=== PATIENT | female | born 1960 | race Caucasian/White ===

== ENCOUNTER → 2016-09-09 | Outpatient (CLI) | payer OTHER ==
--- NOTE | 2016-09-30 08:47 | MM ---
Reason for exam: screening (asymptomatic). Last mammogram was performed 12 years and 7 months ago. History: Benign excisional biopsy of the right breast. Took estrogen for 5 years. Physical Findings: A clinical breast exam by your physician is recommended on an annual basis and results should be correlated with mammographic findings. MG Screening Mammo w CAD Bilateral CC and MLO view(s) were taken. Prior study comparison: June 04, 2015, mammogram, performed at [facility]. September 26, 2013, mammogram, performed at [facility]. September 16, 2010, mammogram, performed at [facility]. The breast tissue is heterogeneously dense. This may lower the sensitivity of mammography. Finding: There are typically benign round, regional calcifications in the upper outer quadrant of the right breast. There is no discrete abnormality. ASSESSMENT: Benign, BI-RAD 2 RECOMMENDATION: Routine screening mammogram of both breasts in 1 year.
== END | disposition home or self-care (01) ==
LOC: RADMAMWWP 16:23
PROVIDERS: ATTEND General Practice
DX: Z12.31 Encounter for screening mammogram for malignant neoplasm of breast (principal)

== ENCOUNTER → 2018-03-14 | Outpatient (CLI) | payer OTHER ==
--- NOTE | 2018-03-16 09:55 | MM ---
Reason for exam: screening (asymptomatic). Last mammogram was performed 1 year and 6 months ago. History: Benign excisional biopsy of the right breast. Took estrogen for 5 years. Physical Findings: A clinical breast exam by your physician is recommended on an annual basis and results should be correlated with mammographic findings. MG Screening Mammo w CAD Bilateral CC and MLO view(s) were taken. Prior study comparison: September 09, 2016, bilateral MG screening mammo w CAD. June 04, 2015, mammogram, performed at [facility]. No significant changes when compared with prior studies. ASSESSMENT: Benign, BI-RAD 2 RECOMMENDATION: Routine screening mammogram of both breasts in 1 year.
== END | disposition home or self-care (01) ==
LOC: RADMAMWWP 13:37
PROVIDERS: ATTEND General Practice
DX: Z12.31 Encounter for screening mammogram for malignant neoplasm of breast (principal)
CPT/HCPCS: 77067

== ENCOUNTER 2018-08-10 14:30 | Inpatient (IN) | payer OTHER ==
[2018-08-10] MEDS ORDERED: SODIUM CHLORIDE 0.9% 1,000 ML IV STA ×2 (14:50)
[2018-08-10 15:23] LABS: Basophils % (A) 1 %; Eosinophils # (A) 0.3 k/uL (0-0.7); Eosinophils % (A) 3 %; HCT 40.1 % (34.0-46.0); HGB 13.1 gm/dL (11.4-16.0); Lymphocytes # (A) 2.4 k/uL (1.0-4.8); Lymphocytes % (A) 27 %; MCH 26.4 pg (25.0-35.0); MCHC 32.6 g/dL (31.0-37.0); MCV 81.1 fL (80.0-100.0); Mean Platelet Volume 6.4; Monocytes # (A) 0.2 k/uL (0-1.0); Monocytes % (A) 3 %; Neutrophils # (A) 5.8 k/uL (1.3-7.7); Neutrophils % (A) 65 %; Platelet Count 287 k/uL (150-450); RBC 4.94 m/uL (3.80-5.40); WBC 8.9 k/uL (3.8-10.6)
[2018-08-10 15:33] LABS: INR 0.9 (<1.2); Prothrombin Time 9.5 sec (9.0-12.0)
[2018-08-10 15:34] LABS: Partial Thromboplastin Time 23.4 sec (22.0-30.0)
[2018-08-10 15:35] LABS: ALT 32 U/L (9-52); AST 29 U/L (14-36); Albumin 4.2 g/dL (3.5-5.0); Alkaline Phosphatase 104 U/L (38-126); Anion Gap 11 mmol/L; Blood Urea Nitrogen 16 mg/dL (7-17); Calcium 9.7 mg/dL (8.4-10.2); Carbon Dioxide 27 mmol/L (22-30); Chloride 100 mmol/L (98-107); Glucose 177 mg/dL (74-99); Magnesium 1.4 mg/dL (1.6-2.3); Sodium 138 mmol/L (137-145); Total Bilirubin 0.4 mg/dL (0.2-1.3); Total Protein 7.2 g/dL (6.3-8.2)
--- NOTE | 2018-08-10 15:55 | XR ---
EXAMINATION TYPE: XR chest 2V DATE OF EXAM: 08/10/2018 COMPARISON: 03/17/2016 HISTORY: Palpitations, chest tightness, dizziness TECHNIQUE: Frontal and lateral views of the chest are obtained. FINDINGS: There is no focal air space opacity, pleural effusion, or pneumothorax seen. There is pulm onary hyperinflation and flattening of the diaphragms on the lateral view compatible with underlying COPD. Chronic interstitial prominence is unchanged from the prior. The cardiac silhouette size is mil dly enlarged. The osseous structures are intact. Right humeral surgical anchors are seen from prior rotator cuff repair. IMPRESSION: Chronic interstitial prominence and radiographic sequela of COPD. No acute cardiopulmonar y process.
--- NOTE | 2018-08-10 16:26 | ED ---
General Adult HPI - General Chief complaint: Allergic Reaction Stated complaint: Med reaction/ chest pain Time Seen by Provider: 08/10/18 14:50 Source: patient, RN notes reviewed, old records reviewed Mode of arrival: wheelchair Limitations: no limitations - History of Present Illness Initial comments: Patient is a 57-year-old female presents today with complaints of "ALLERGIC reaction" to Trilisate. Patient states she started this new medication last week. Patient is a diabetic Patient. Has history of hypertension and hyperlipidemia. Today she had her increased dose since that time she's been having palpitations. She states that she's been having some chest tightness and difficulty breathing. Patient states that she has had no recent fevers or chills or worsening cough. Patient states that it is difficult for her to lay completely back to previously. She does her sleep apnea machine. - Related Data Home Medications Medication Instructions Recorded Confirmed Diltiazem Cd [Cardizem CD] 240 mg PO DAILY 06/09/15 08/10/18 Insulin Aspart [NovoLOG Flexpen] 20 unit SQ AC-TID 06/09/15 08/10/18 Loratadine [Claritin] 10 mg PO DAILY 06/09/15 08/10/18 metFORMIN HCL [Glucophage] 1,000 mg PO BID 06/09/15 08/10/18 rOPINIRole HCL [Requip Xl] 4 mg PO HS 06/09/15 08/10/18 Betamethasone Dipropionate 1 applic TOPICAL BID 03/17/16 08/10/18 [Diprolene AF 0.05% Cream] Budesonide-Formot 160-4.5 Mcg 2 puff INHALATION RT-BID 03/17/16 08/10/18 [Symbicort 160-4.5 Mcg Inhaler] Albuterol Sulfate [Proair Hfa] 1 - 2 puff INHALATION RT-Q6H PRN 08/10/18 08/10/18 Dulaglutide [Trulicity] 0.75 mg SQ MO 08/10/18 08/10/18 Insulin Aspart [NovoLOG Flexpen] See Protocol SQ AC-TID 08/10/18 08/10/18 Insulin Glargine [Lantus] 26 unit SQ HS 08/10/18 08/10/18 Levothyroxine Sodium [Synthroid] 25 mcg PO DAILY 08/10/18 08/10/18 Pravastatin Sodium [Pravachol] 80 mg PO HS 08/10/18 08/10/18 Allergies Allergy/AdvReac Type Severity Reaction Status Date / Time ammonia Allergy Unknown Verified 08/10/18 14:56 barium sulfate Allergy Unknown Verified 08/10/18 14:56 dulaglutide [From Trulicity] Allergy Dyspnea Verified 08/10/18 14:56 exenatide [From Byetta] Allergy Unknown Verified 08/10/18 14:56 feathers Allergy Unknown Verified 08/10/18 14:56 fexofenadine HCl Allergy Unknown Verified 08/10/18 14:56 [From Elena] hydrochlorothiazide Allergy Unknown Verified 08/10/18 14:56 influenza virus vaccine, Allergy Unknown Verified 08/10/18 14:56 specific isosorbide [From Imdur] Allergy Unknown Verified 08/10/18 14:56 meperidine HCl [From Demerol] Allergy Anaphylaxis Verified 08/10/18 14:56 nifedipine [From Procardia] Allergy Unknown Verified 08/10/18 14:56 nitroglycerin Allergy Unknown Verified 08/10/18 14:56 ondansetron Allergy Unknown Verified 08/10/18 14:56 [From Zofran (as hydrochloride)] paroxetine [From Paxil] Allergy Unknown Verified 08/10/18 14:56 paroxetine HCl [From Paxil] Allergy Unknown Verified 08/10/18 14:56 sertraline HCl [From Zoloft] Allergy Unknown Verified 08/10/18 14:56 simvastatin [From Zocor] Allergy Unknown Verified 08/10/18 14:56 Wobmumq-Bpg-Iff Reductase Allergy Unknown Verified 08/10/18 14:56 Inhibitor venom-honey bee Allergy Anaphylaxis Verified 08/10/18 14:56 [bee venom (honey bee)] zolpidem [From Ambien] Allergy Unknown Verified 08/10/18 14:56 zolpidem tartrate Allergy Unknown Verified 08/10/18 14:56 [From Ambien] lactose AdvReac Nausea & Verified 08/10/18 14:56 Vomiting & Diarrhea hay Allergy Unknown Uncoded 08/10/18 14:41 lysol Allergy Unknown Uncoded 08/10/18 14:41 Review of Systems ROS Statement: Those systems with pertinent positive or pertinent negative responses have been documented in the HPI. ROS Other: All systems not noted in ROS Statement are negative. Past Medical History Past Medical History: Asthma, COPD, CVA/TIA, Diabetes Mellitus, GERD/Reflux, Hearing Disorder / Deafness, Hyperlipidemia, Hypertension, Seizure Disorder, Sleep Apnea/CPAP/BIPAP, Thyroid Disorder Additional Past Medical History / Comment(s): additional hx: right bundle branch block,barretts esophagus, migraines, deanna hearing aids, lung nodules, fatty liver, pulmonary hypertension, heart murmur,obesity, IBS, RLS, arthritis, ADHD, DJD, anemia, lactose intolerance History of Any Multi-Drug Resistant Organisms: None Reported Past Surgical History: Cholecystectomy, Hysterectomy Additional Past Surgical History / Comment(s): breast biopsy,esophageal surgery - 2002 Past Anesthesia/Blood Transfusion Reactions: No Reported Reaction Past Psychological History: Anxiety, Depression Smoking Status: Never smoker Past Alcohol Use History: None Reported Past Drug Use History: None Reported - Past Family History Mother History Unknown: Yes Family Medical History: Congestive Heart Failure (CHF), Myocardial Infarction ([place]) Additional Family Medical History / Comment(s): 77 Father History Unknown: Yes Family Medical History: COPD, Myocardial Infarction ([place]) Additional Family Medical History / Comment(s): at 56 Sister(s) History Unknown: Yes Family Medical History: Myocardial Infarction ([place]) Additional Family Medical History / Comment(s): at 56 General Exam - General Exam Comments Initial Comments: 57-year-old female. Alert and oriented. No distress. Limitations: no limitations General appearance: alert, in no apparent distress Head exam: Present: atraumatic, normocephalic, normal inspection Eye exam: Present: normal appearance, PERRL, EOMI. Absent: scleral icterus, conjunctival injection, periorbital swelling ENT exam: Present: normal exam, mucous membranes moist Neck exam: Present: normal inspection. Absent: tenderness, meningismus, lymphadenopathy Respiratory exam: Present: normal lung sounds bilaterally. Absent: respiratory distress, wheezes, rales, rhonchi, stridor Cardiovascular Exam: Present: regular rate, normal rhythm, normal heart sounds. Absent: systolic murmur, diastolic murmur, rubs, gallop, clicks GI/Abdominal exam: Present: soft, normal bowel sounds. Absent: distended, tenderness, guarding, rebound, rigid Extremities exam: Present: normal inspection, full ROM, normal capillary refill. Absent: tenderness, pedal edema, joint swelling, calf tenderness Back exam: Present: normal inspection Neurological exam: Present: alert, oriented X3, CN II-XII intact Psychiatric exam: Present: normal affect, normal mood Skin exam: Present: warm, dry, intact, normal color. Absent: rash Course Vital Signs 08/10/18 08/10/18 08/10/18 14:37 15:18 15:52 Temperature 97.3 F L Pulse Rate 82 Respiratory 20 20 Rate Blood Pressure 154/86 O2 Sat by Pulse 97 95 Oximetry 08/10/18 08/10/18 08/10/18 16:00 16:10 16:20 Temperature Pulse Rate 78 75 Respiratory 20 20 Rate Blood Pressure 163/91 163/90 163/90 O2 Sat by Pulse 96 91 L Oximetry 08/10/18 08/10/18 08/10/18 16:30 16:40 16:50 Temperature Pulse Rate 78 82 77 Respiratory 20 20 26 H Rate Blood Pressure 163/90 166/89 166/89 O2 Sat by Pulse 95 92 L 93 L Oximetry 08/10/18 08/10/18 17:00 17:10 Temperature Pulse Rate 76 77 Respiratory 14 Rate Blood Pressure 166/89 167/97 O2 Sat by Pulse 94 L 95 Oximetry EKG Findings - EKG Comments: EKG Findings:: EKG shows normal sinus rhythm right bundle branch block. Abnormal EKG. Ventricular rate 81 bpm. Pulse 168 ms. Restriction 126 ms. QT QTc is 404/469 ms. No evidence of ST elevation or T-wave inversion. Medical Decision Making - Medical Decision Making 57-year-old female presents or extremity with chest tightness palpitations. Patient was instructed to return to the [facility]. She has a history of diabetes hypertension hyperlipidemia. Patient EKG shows right bundle branch block. Troponin is negative at this time. She states she does not have a stock letterer and has not had a stress test. She states complaints of heaviness on her chest. At this time elected the Patient for repeat troponins. Discussed case with Dr. Carrillo and who agrees to admission. - Lab Data Result diagrams: 08/10/18 15:15 08/10/18 15:15 Lab Results 08/10/18 08/10/18 08/10/18 Range/Units 15:15 15:15 15:15 WBC 8.9 (3.8-10.6) k/uL RBC 4.94 (3.80-5.40) m/uL Hgb 13.1 (11.4-16.0) gm/dL Hct 40.1 (34.0-46.0) % MCV 81.1 (80.0-100.0) fL MCH 26.4 (25.0-35.0) pg MCHC 32.6 (31.0-37.0) g/dL RDW 15.0 (11.5-15.5) % Plt Count 287 (150-450) k/uL Neutrophils % 65 % Lymphocytes % 27 % Monocytes % 3 % Eosinophils % 3 % Basophils % 1 % Neutrophils # 5.8 (1.3-7.7) k/uL Lymphocytes # 2.4 (1.0-4.8) k/uL Monocytes # 0.2 (0-1.0) k/uL Eosinophils # 0.3 (0-0.7) k/uL Basophils # 0.0 (0-0.2) k/uL PT 9.5 (9.0-12.0) sec INR 0.9 (<1.2) APTT 23.4 (22.0-30.0) sec Sodium 138 (137-145) mmol/L Potassium 4.0 (3.5-5.1) mmol/L Chloride 100 (98-107) mmol/L Carbon Dioxide 27 (22-30) mmol/L Anion Gap 11 mmol/L BUN 16 (7-17) mg/dL Creatinine 0.51 L (0.52-1.04) mg/dL Est GFR (CKD-EPI)AfAm >90 (>60 ml/min/1.73 sqM) Est GFR (CKD-EPI)NonAf >90 (>60 ml/min/1.73 sqM) Glucose 177 H (74-99) mg/dL Calcium 9.7 (8.4-10.2) mg/dL Magnesium 1.4 L (1.6-2.3) mg/dL Total Bilirubin 0.4 (0.2-1.3) mg/dL AST 29 (14-36) U/L ALT 32 (9-52) U/L Alkaline Phosphatase 104 (38-126) U/L Troponin I (0.000-0.034) ng/mL NT-Pro-B Natriuret Pep pg/mL Total Protein 7.2 (6.3-8.2) g/dL Albumin 4.2 (3.5-5.0) g/dL 08/10/18 08/10/18 Range/Units 15:15 15:15 WBC (3.8-10.6) k/uL RBC (3.80-5.40) m/uL Hgb (11.4-16.0) gm/dL Hct (34.0-46.0) % MCV (80.0-100.0) fL MCH (25.0-35.0) pg MCHC (31.0-37.0) g/dL RDW (11.5-15.5) % Plt Count (150-450) k/uL Neutrophils % % Lymphocytes % % Monocytes % % Eosinophils % % Basophils % % Neutrophils # (1.3-7.7) k/uL Lymphocytes # (1.0-4.8) k/uL Monocytes # (0-1.0) k/uL Eosinophils # (0-0.7) k/uL Basophils # (0-0.2) k/uL PT (9.0-12.0) sec INR (<1.2) APTT (22.0-30.0) sec Sodium (137-145) mmol/L Potassium (3.5-5.1) mmol/L Chloride (98-107) mmol/L Carbon Dioxide (22-30) mmol/L Anion Gap mmol/L BUN (7-17) mg/dL Creatinine (0.52-1.04) mg/dL Est GFR (CKD-EPI)AfAm (>60 ml/min/1.73 sqM) Est GFR (CKD-EPI)NonAf (>60 ml/min/1.73 sqM) Glucose (74-99) mg/dL Calcium (8.4-10.2) mg/dL Magnesium (1.6-2.3) mg/dL Total Bilirubin (0.2-1.3) mg/dL AST (14-36) U/L ALT (9-52) U/L Alkaline Phosphatase (38-126) U/L Troponin I <0.012 (0.000-0.034) ng/mL NT-Pro-B Natriuret Pep 98 pg/mL Total Protein (6.3-8.2) g/dL Albumin (3.5-5.0) g/dL - Radiology Data Radiology results: report reviewed Chronic interstitial prominence and radiographic some "soupy. No acute cardio pulmonary process. Disposition Clinical Impression: Unstable angina Disposition: ADMITTED IP TO THIS HOSP Condition: Stable Is patient prescribed a controlled substance at d/c from ED?: No Referrals: León Martin MD [Primary Care Provider] - 1-2 days Time of Disposition: 17:50
[2018-08-10] MEDS ORDERED: ONDANSETRON 4 MG/2 ML VIAL IVP PRN (17:51)
[2018-08-10] MEDS ORDERED: NALOXONE 0.4 MG/ML 1 ML VIAL IV PRN (17:51)
[2018-08-10] MEDS ORDERED: NITROGLYCERIN SL TABS 0.4 MG TAB SUBLINGUAL PRN (19:32)
[2018-08-10] MEDS ORDERED: ALBUTEROL NEBULIZED 2.5 MG/3 ML INHALATION PRN (22:16)
[2018-08-10 22:55] LABS: Glucose,Whole Blood 233 mg/dL (75-99)
[2018-08-10] MEDS: INSULIN ASPART (NovoLOG) 100 UNIT/ML VIAL SQ SCH (23:33)
[2018-08-10] MEDS: INSULIN DETEMIR (LEVEMIR) 100 UNIT/ML SYR SQ SCH (23:33)
[2018-08-11 04:02] LABS: Cholesterol 239 mg/dL (<200); HDL Cholesterol 49 mg/dL (40-60); LDL Cholesterol,Calculated 114 mg/dL (0-99); Triglycerides 379 mg/dL (<150)
[2018-08-11] MEDS: LEVOTHYROXINE 25 MCG TAB PO SCH (05:46)
[2018-08-11 06:53] LABS: Glucose,Whole Blood 188 mg/dL (75-99)
[2018-08-11] MEDS: SYMBICORT 160-4.5 MCG INHALER INHALATION SCH ×2 (07:41→20:24)
[2018-08-11] MEDS: ASPIRIN 325 MG TAB PO SCH ×2 (08:30→10:02)
--- NOTE | 2018-08-11 09:43 | P.HPIM ---
History of Present Illness Chief Complaint: Chest pain This very pleasant 57-year-old female with a past medical history significant for diabetes, hypertension, hyperlipidemia, COPD, comes in with above-mentioned complaint. The patient says that she was recently started on truicity for her diabetes. She took is supposed to take it once a week and she took her second dose about 3 days ago on Wednesday and by evening she started noticing that she's been feeling more chest tightness, having more palpitations and pain in her right arm. She was also feeling lightheaded and was having difficulty breathing. She says that this worried her as she she said that she has seen Dr. Hernandez in the past and she was told that she needed a heart cath but did not get it done as her care was through [place]. She otherwise does not complain of any increased cough, no nausea vomiting, no diarrhea constipation, noting numbness on his extremities, no itch or rash. ER course-patient's vitals were stable. Labwork was done which shows WBC 8.9 hemoglobin 13.1 platelets 287 sodium 1:30 potassium 4.0 B1 16 creatinine 0.51 LFTs were normal. Chest X shows chronic interstitial prominence no acute process. Patient's troponins were negative. EKG was done which showed right bundle watch block pattern. Patient was admitted with a cardiology consult. Review of Systems All systems: negative Past Medical History Past Medical History: Asthma, COPD, CVA/TIA, Diabetes Mellitus, GERD/Reflux, Hearing Disorder / Deafness, Hyperlipidemia, Hypertension, Seizure Disorder, Sleep Apnea/CPAP/BIPAP, Thyroid Disorder Additional Past Medical History / Comment(s): additional hx: right bundle branch block,barretts esophagus, migraines, deanna hearing aids, lung nodules, fatty liver, pulmonary hypertension, heart murmur,obesity, IBS, RLS, arthritis, ADHD, DJD, anemia, lactose intolerance History of Any Multi-Drug Resistant Organisms: None Reported Past Surgical History: Cholecystectomy, Hysterectomy Additional Past Surgical History / Comment(s): breast biopsy,esophageal surgery - 2002 Past Anesthesia/Blood Transfusion Reactions: No Reported Reaction Past Psychological History: Anxiety, Depression Smoking Status: Never smoker Past Alcohol Use History: None Reported Past Drug Use History: None Reported - Past Family History Mother History Unknown: Yes Family Medical History: Congestive Heart Failure (CHF), Myocardial Infarction ([place]) Additional Family Medical History / Comment(s): 77 Father History Unknown: Yes Family Medical History: COPD, Myocardial Infarction ([place]) Additional Family Medical History / Comment(s): at 56 Sister(s) History Unknown: Yes Family Medical History: Myocardial Infarction ([place]) Additional Family Medical History / Comment(s): at 56 Medications and Allergies Home Medications Medication Instructions Recorded Confirmed Type Diltiazem Cd [Cardizem CD] 240 mg PO HS 06/09/15 08/10/18 History Insulin Aspart [NovoLOG Flexpen] 20 unit SQ AC-TID 06/09/15 08/10/18 History Loratadine [Claritin] 10 mg PO HS 06/09/15 08/10/18 History metFORMIN HCL [Glucophage] 1,000 mg PO BID 06/09/15 08/10/18 History rOPINIRole HCL [Requip Xl] 4 mg PO HS 06/09/15 08/10/18 History Budesonide-Formot 160-4.5 Mcg 2 puff INHALATION RT-BID 03/17/16 08/10/18 History [Symbicort 160-4.5 Mcg Inhaler] Albuterol Sulfate [Proair Hfa] 1 - 2 puff INHALATION RT-Q6H PRN 08/10/18 08/10/18 History Dulaglutide [Trulicity] 0.75 mg SQ MO 08/10/18 08/10/18 History Insulin Aspart [NovoLOG Flexpen] See Protocol SQ AC-TID 08/10/18 08/10/18 History Insulin Glargine [Lantus] 26 unit SQ HS 08/10/18 08/10/18 History Levothyroxine Sodium [Synthroid] 25 mcg PO DAILY 08/10/18 08/10/18 History Pravastatin Sodium [Pravachol] 80 mg PO HS 08/10/18 08/10/18 History Allergies Allergy/AdvReac Type Severity Reaction Status Date / Time ammonia Allergy Unknown Verified 08/10/18 21:28 barium sulfate Allergy Unknown Verified 08/10/18 21:28 dulaglutide [From Trulicity] Allergy Dyspnea Verified 08/10/18 21:28 exenatide [From Byetta] Allergy Unknown Verified 08/10/18 21:28 feathers Allergy Unknown Verified 08/10/18 21:28 fexofenadine HCl Allergy Unknown Verified 08/10/18 21:28 [From Elena] hydrochlorothiazide Allergy Unknown Verified 08/10/18 21:28 influenza virus vaccine, Allergy Unknown Verified 08/10/18 21:28 specific isosorbide [From Imdur] Allergy Unknown Verified 08/10/18 21:28 meperidine HCl [From Demerol] Allergy Anaphylaxis Verified 08/10/18 21:28 nifedipine [From Procardia] Allergy Unknown Verified 08/10/18 21:28 nitroglycerin Allergy Unknown Verified 08/10/18 21:28 ondansetron Allergy Unknown Verified 08/10/18 21:28 [From Zofran (as hydrochloride)] paroxetine [From Paxil] Allergy Unknown Verified 08/10/18 21:28 paroxetine HCl [From Paxil] Allergy Unknown Verified 08/10/18 21:28 sertraline HCl [From Zoloft] Allergy Unknown Verified 08/10/18 21:28 simvastatin [From Zocor] Allergy Unknown Verified 08/10/18 21:28 Uaampka-Oqv-Gur Reductase Allergy Unknown Verified 08/10/18 21:28 Inhibitor venom-honey bee Allergy Anaphylaxis Verified 08/10/18 21:28 [bee venom (honey bee)] zolpidem [From Ambien] Allergy Unknown Verified 08/10/18 21:28 zolpidem tartrate Allergy Unknown Verified 08/10/18 21:28 [From Ambien] lactose AdvReac Nausea & Verified 08/10/18 21:28 Vomiting & Diarrhea hay Allergy Unknown Uncoded 08/10/18 21:28 lysol Allergy Unknown Uncoded 08/10/18 21:28 Physical Exam Vitals: Vital Signs Temp Pulse Pulse Resp BP BP Pulse Ox 08/11/18 08:00 73 18 08/11/18 07:15 97.7 F 73 18 118/71 98 08/11/18 04:00 97.8 F 73 18 123/77 98 08/11/18 00:00 97.4 F L 71 18 146/85 98 08/10/18 22:29 97.6 F 79 18 166/99 98 08/10/18 21:18 97.4 F L 77 18 166/86 98 08/10/18 20:00 18 08/10/18 19:30 86 08/10/18 19:00 80 20 08/10/18 18:30 20 08/10/18 18:00 82 18 97 08/10/18 17:30 167/97 84 L 08/10/18 17:10 77 167/97 95 08/10/18 17:00 76 14 166/89 94 L 08/10/18 16:50 77 26 H 166/89 93 L 08/10/18 16:40 82 20 166/89 92 L 08/10/18 16:30 78 20 163/90 95 08/10/18 16:20 75 20 163/90 91 L 08/10/18 16:10 163/90 08/10/18 16:00 78 20 163/91 96 08/10/18 15:52 95 08/10/18 15:18 20 08/10/18 14:37 97.3 F L 82 20 154/86 97 Intake and Output 08/10/18 08/11/18 08/11/18 22:59 06:59 14:59 Other: Voiding Method Toilet Toilet Toilet # Voids 1 On exam, alert and oriented x3. HEENT: Conjunctivae normal. eyes normal. NECK: No JVD. No thyroid enlargement. No LNs CARDIOVASCULAR: S1, S2 muffled. No murmur RESPIRATION: Breath sounds diminished in the bases. No rhonchi or crackles. No bronchial breathing. ABDOMEN: Soft, nontender . No guarding. no masses palpable. No ascites, No hepatosplenomegaly.Bowel sounds heard. LEGS: No edema. no swelling NERVOUS SYSTEM: Cranial N 2-12 grossly normal. Moves all 4 limbs. No focal deficits. No sensory deficit. No signs of cerebellar dysfucntion. Skin: no ulcer no rash Joints: No active swelling. No inflammation. Lymphatic system. No LN neck axilla or groin. Results CBC & Chem 7: 08/10/18 15:15 08/10/18 15:15 Labs: Abnormal Lab Results - Last 24 Hours (Table) 08/10/18 08/10/18 08/11/18 Range/Units 15:15 22:54 03:18 Creatinine 0.51 L (0.52-1.04) mg/dL Glucose 177 H (74-99) mg/dL POC Glucose (mg/dL) 233 H (75-99) mg/dL Magnesium 1.4 L (1.6-2.3) mg/dL Triglycerides 379 H (<150) mg/dL Cholesterol 239 H (<200) mg/dL LDL Cholesterol, Calc 114 H (0-99) mg/dL 08/11/18 Range/Units 06:51 Creatinine (0.52-1.04) mg/dL Glucose (74-99) mg/dL POC Glucose (mg/dL) 188 H (75-99) mg/dL Magnesium (1.6-2.3) mg/dL Triglycerides (<150) mg/dL Cholesterol (<200) mg/dL LDL Cholesterol, Calc (0-99) mg/dL Thrombosis Risk Factor Assmnt - Choose All That Apply Any of the Below Risk Factors Present?: Yes Each Factor Represents 1 point: Abnormal pulmonary function (COPD), Age 41-60 years, Hx of IBD, Obesity (BMI >25), Swollen legs (current) Other Risk Factors: No Other congenital or acquired thrombophilia - If yes, enter type in comment: No Thrombosis Risk Factor Assessment Total Risk Factor Score: 5 Thrombosis Risk Factor Assessment Level: High Risk Assessment and Plan Assessment: - Chest pain need to rule out cardiac cause - History of diabetes recently started on new medications - Hypertension - Hyperlipidemia - Obesity - History of CVA - History of seizures - History of GERD - History of sleep apnea - History of hypothyroidism Plan - Patient is admitted to observation on telemetry - Cardiology consulted - We will wait for cardiology's expert recommendations - Cardiac workup in process - Continue home medications - Hold trulicity on discharge and follow-up with primary care - DVT and GI prophylaxis - We'll order for lab work in the morning - Patient is an observation - Patient is full code Time with Patient: Greater than 30
[2018-08-11] MEDS ORDERED: ALPRAZolam 0.5 MG TAB PO PRN (09:44)
[2018-08-11] MEDS ORDERED: SODIUM CHLORIDE 0.9% 1,000 ML in EMPTY BAG 1 BAG IV ONE (09:44)
[2018-08-11] MEDS ORDERED: ALPRAZolam 0.25 MG TAB PO PRN (09:44)
[2018-08-11] MEDS: INSULIN ASPART (NovoLOG) 100 UNIT/ML VIAL SQ SCH ×4 (10:24→21:15)
--- NOTE | 2018-08-11 10:47 | ECHOF ---
Referral Reason: MEASUREMENTS -------- HEIGHT: 132.1 cm WEIGHT: 108.0 kg BP: IVSd: 1.1 cm (0.6 - 1.1) LVIDd: 4.7 cm (3.9 - 5.3) LVPWd: 1.0 cm (0.6 - 1.1) IVSs: 1.8 cm LVIDs: 2.4 cm LVPWs: 1.8 cm Ao Diam: 3.4 cm (2.0 - 3.7) AV Cusp: 2.1 cm (1.5 - 2.6) LA Diam: 3.3 cm (2.7 - 3.8) MV EXCURSION: 15.271 mm (> 18.000) MV EF SLOPE: 87 mm/s (70 - 150) EPSS: 1.0 cm MV E Mj: 1.05 m/s MV DecT: 208 ms MV A Mj: 0.82 m/s MV E/A Ratio: 1.29 AR PHT: 146 ms RAP: 5.00 mmHg RVSP: 9.71 mmHg FINDINGS -------- Sinus rhythm. This was a technically difficult study with suboptimal views. The left ventricular size is normal. There is mild concentric left ventricular hypertrophy. Overa ll left ventricular systolic function is normal with, an EF between 55 - 60 %. The right ventricle is normal in size. The left atrial size is normal. The right atrial size is normal. Lumason used The aortic valve is trileaflet and appears structurally normal. There is trace mitral regurgitation. Trace tricuspid regurgitation present. The right ventricular systolic pressure, as measured by Dopp ler, is 9.71mmHg. There is no pulmonic regurgitation present. The aortic root size is normal. IVC Not well visulized. There is no pericardial effusion. CONCLUSIONS -------- 1. Sinus rhythm. 2. This was a technically difficult study with suboptimal views. 3. The left ventricular size is normal. 4. There is mild concentric left ventricular hypertrophy. 5. Overall left ventricular systolic function is normal with, an EF between 55 - 60 %. 6. The right ventricle is normal in size. 7. The left atrial size is normal. 8. The right atrial size is normal. 9. Lumason used 10. The aortic valve is trileaflet and appears structurally normal. 11. There is trace mitral regurgitation. 12. Trace tricuspid regurgitation present. 13. The right ventricular systolic pressure, as measured by Doppler, is 9.71mmHg. 14. There is no pulmonic regurgitation present. 15. The aortic root size is normal. 16. IVC Not well visulized. 17. There is no pericardial effusion. GOLF BALL WINDER: Laurence Garduno RDCS
[2018-08-11] MEDS ORDERED: IV FLUID CONTINUATION 1,000 ML IV ONE (11:00)
[2018-08-11] MEDS ORDERED: Magnesium Replacement Protocol 1 EACH MISC MISCELLANE PRN (11:12)
--- NOTE | 2018-08-11 11:15 | P.CRDCN ---
History of Present Illness History of present illness: This is a pleasant 57-year-old female past medical history significant for diabetes mellitus, hypertension, dyslipidemia, COPD, gastroesophageal reflux disease, obstructive sleep apnea, Wade's esophagus, hypothyroidism and morbid obesity. We have been asked to see the patient in consultation secondary to chest discomfort. In 2017 she underwent a Lexiscan stress test which revealed the possibility of a small area of reversibility. Secondary to that she was referred to see Dr. Hernandez in the office of which he did a dobutamine stress echocardiogram which was inconclusive secondary to inability to achieve target heart rate. At that time he recommended she undergo cardiac catheterization for further evaluation. However this was never completed due to the patient states insurance issues with [facility]. Over the previous week and a half she has been experiencing symptoms of chest discomfort described as a pressure sensation in the midsternal region with radiation to the right shoulder and down the right arm associated with shortness of breath, nausea and feeling lightheaded. She did recently starting new medication for her diabetes, trulicity, which she feels may be the culpirt of her symptoms. She is seen and examined resting comfortably sitting in the bed in no acute distress. She denies active symptoms of chest discomfort currently. EKG reveals right bundle branch block. Chest x-ray reveals evidence of COPD. Laboratory data reviewed, WBC 8.9, hemoglobin 13.1, platelets 287, sodium 138, potassium 4.0, creatinine 0.51, magnesium on admission 1.4, cardiac enzymes negative 3, LDL 114, HDL 49, NT proBNP 98. Current cardiac medications include pravastatin 80 mg daily and diltiazem 240 mg daily. At the time of my exam: CONSTITUTIONAL: Denies fever. Denies chills. EYES: Denies blurred vision. Denies vision changes. Denies eye pain. EARS, NOSE, MOUTH & THROAT: Denies headache. Denies sore throat. Denies ear pain. CARDIOVASCULAR: Denies chest pain. Denies shortness of breath. Denies orthopnea. Denies PND. Denies palpitations. RESPIRATORY: Denies cough. GASTROINTESTINAL: Denies abdominal pain. Denies diarrhea. Denies constipation. Denies nausea. Denies vomiting. MUSCULOSKELETAL: Denies myalgias. INTEGUMENTARY: Denies pruitis. Denies rash. NEUROLOGIC: Denies numbness. Denies tingling. Denies weakness. PSYCHIATRIC: Denies anxiety. Denies depression. ENDOCRINE: Denies fatigue. Denies weight change. Denies polydipsia. Denies polyurina. GENITOURINARY: Denies burning, hematuria or urgency with micturation. HEMATOLOGIC: Denies history of anemia. Denies bleeding. Blood pressure 118/71 heart rate 73 afebrile maintaining oxygen saturation on room air GENERAL: This is a 57-year-old female in no apparent distress at the time of my examination. Morbidly obese. HEENT: Head is atraumatic, normocephalic. Pupils are equal, round. Sclerae anicteric. Conjunctivae are clear. Mucous membranes of the mouth are moist. Neck is supple. There is no jugular venous distention. No carotid bruit is heard. LUNGS: Clear to auscultation no wheezes, rales or rhonchi. No chest wall tenderness is noted on palpation or with deep breathing. HEART: Regular rate and rhythm without murmurs, rubs or gallops. S1 and S2 heard. ABDOMEN: Soft, nontender. Bowel sounds are heard. No organomegaly noted. EXTREMITIES: No evidence of peripheral edema and no calf tenderness noted. VASCULAR: Radial and dorsalis pedis pulses palpated, no evidence of clubbing. NEUROLOGIC: Patient is awake, alert and oriented x3. ASSESSMENT Chest discomfort suggestive of unstable angina in a patient with significant risk factors and abnormal stress test in the past Hypomagnesemia Hypertension Dyslipidemia COPD Wade's esophagus Obstructive sleep apnea Morbid obesity, BMI 49 PLAN Patient's symptoms are highly suggestive of unstable angina in a patient with multiple risk factors as well as an abnormal stress test in 2017 for which she did not undergo cardiac catheterization. We recommend proceeding with cardiac catheterization at this time to further assess the coronary arteries. I have discussed the risks, benefits and alternative therapies for the above-mentioned procedure and for both sedation/analgesia as well as necessary blood product administration, if indicated, as they pertain to this patient. The patient has indicated understanding and acceptance of the risks and procedures discussed. Questions have been answered appropriately and she is agreeable to move forward with the above stated procedure. She has requested to speak with chelsea kaur regarding insurance coverage. We will ask them to see her prior to her procedure. Obtain 2-D echocardiogram and Doppler study to assess cardiac structure and function. Replace magnesium per protocol. Further recommendations to follow based upon clinical course. Thank you kindly for this consultation. Nurse Practitioner note has been reviewed, I agree with a documented findings and plan of care. Patient was seen and examined. Past Medical History Past Medical History: Asthma, COPD, CVA/TIA, Diabetes Mellitus, GERD/Reflux, Hearing Disorder / Deafness, Hyperlipidemia, Hypertension, Seizure Disorder, Sleep Apnea/CPAP/BIPAP, Thyroid Disorder Additional Past Medical History / Comment(s): additional hx: right bundle branch block,barretts esophagus, migraines, deanna hearing aids, lung nodules, fatty liver, pulmonary hypertension, heart murmur,obesity, IBS, RLS, arthritis, ADHD, DJD, anemia, lactose intolerance History of Any Multi-Drug Resistant Organisms: None Reported Past Surgical History: Cholecystectomy, Hysterectomy Additional Past Surgical History / Comment(s): breast biopsy,esophageal surgery - 2002 Past Anesthesia/Blood Transfusion Reactions: No Reported Reaction Past Psychological History: Anxiety, Depression Smoking Status: Never smoker Past Alcohol Use History: None Reported Past Drug Use History: None Reported - Past Family History Mother History Unknown: Yes Family Medical History: Congestive Heart Failure (CHF), Myocardial Infarction ([place]) Additional Family Medical History / Comment(s): 77 Father History Unknown: Yes Family Medical History: COPD, Myocardial Infarction ([place]) Additional Family Medical History / Comment(s): at 56 Sister(s) History Unknown: Yes Family Medical History: Myocardial Infarction ([place]) Additional Family Medical History / Comment(s): at 56 Medications and Allergies Home Medications Medication Instructions Recorded Confirmed Type Diltiazem Cd [Cardizem CD] 240 mg PO HS 06/09/15 08/10/18 History Insulin Aspart [NovoLOG Flexpen] 20 unit SQ AC-TID 06/09/15 08/10/18 History Loratadine [Claritin] 10 mg PO HS 06/09/15 08/10/18 History metFORMIN HCL [Glucophage] 1,000 mg PO BID 06/09/15 08/10/18 History rOPINIRole HCL [Requip Xl] 4 mg PO HS 06/09/15 08/10/18 History Budesonide-Formot 160-4.5 Mcg 2 puff INHALATION RT-BID 03/17/16 08/10/18 History [Symbicort 160-4.5 Mcg Inhaler] Albuterol Sulfate [Proair Hfa] 1 - 2 puff INHALATION RT-Q6H PRN 08/10/18 08/10/18 History Dulaglutide [Trulicity] 0.75 mg SQ MO 08/10/18 08/10/18 History Insulin Aspart [NovoLOG Flexpen] See Protocol SQ AC-TID 08/10/18 08/10/18 History Insulin Glargine [Lantus] 26 unit SQ HS 08/10/18 08/10/18 History Levothyroxine Sodium [Synthroid] 25 mcg PO DAILY 08/10/18 08/10/18 History Pravastatin Sodium [Pravachol] 80 mg PO HS 08/10/18 08/10/18 History Allergies Allergy/AdvReac Type Severity Reaction Status Date / Time ammonia Allergy Unknown Verified 08/10/18 21:28 barium sulfate Allergy Unknown Verified 08/10/18 21:28 dulaglutide [From Trulicity] Allergy Dyspnea Verified 08/10/18 21:28 exenatide [From Byetta] Allergy Unknown Verified 08/10/18 21:28 feathers Allergy Unknown Verified 08/10/18 21:28 fexofenadine HCl Allergy Unknown Verified 08/10/18 21:28 [From Elena] hydrochlorothiazide Allergy Unknown Verified 08/10/18 21:28 influenza virus vaccine, Allergy Unknown Verified 08/10/18 21:28 specific isosorbide [From Imdur] Allergy Unknown Verified 08/10/18 21:28 meperidine HCl [From Demerol] Allergy Anaphylaxis Verified 08/10/18 21:28 nifedipine [From Procardia] Allergy Unknown Verified 08/10/18 21:28 nitroglycerin Allergy Unknown Verified 08/10/18 21:28 ondansetron Allergy Unknown Verified 08/10/18 21:28 [From Zofran (as hydrochloride)] paroxetine [From Paxil] Allergy Unknown Verified 08/10/18 21:28 paroxetine HCl [From Paxil] Allergy Unknown Verified 08/10/18 21:28 sertraline HCl [From Zoloft] Allergy Unknown Verified 08/10/18 21:28 simvastatin [From Zocor] Allergy Unknown Verified 08/10/18 21:28 Jasetlg-Wrq-Cin Reductase Allergy Unknown Verified 08/10/18 21:28 Inhibitor venom-honey bee Allergy Anaphylaxis Verified 08/10/18 21:28 [bee venom (honey bee)] z[facility]pidem [[facility]] Allergy Unknown Verified 08/10/18 21:28 zolpidem tartrate Allergy Unknown Verified 08/10/18 21:28 [[facility]] lactose AdvReac Nausea & Verified 08/10/18 21:28 Vomiting & Diarrhea hay Allergy Unknown Uncoded 08/10/18 21:28 lysol Allergy Unknown Uncoded 08/10/18 21:28 Physical Exam Vitals: Vital Signs Temp Pulse Pulse Resp BP BP Pulse Ox 08/11/18 04:00 97.8 F 73 18 123/77 98 08/11/18 00:00 97.4 F L 71 18 146/85 98 08/10/18 22:29 97.6 F 79 18 166/99 98 08/10/18 21:18 97.4 F L 77 18 166/86 98 08/10/18 20:00 18 08/10/18 19:30 86 08/10/18 19:00 80 20 08/10/18 18:30 20 08/10/18 18:00 82 18 97 08/10/18 17:30 167/97 84 L 08/10/18 17:10 77 167/97 95 08/10/18 17:00 76 14 166/89 94 L 08/10/18 16:50 77 26 H 166/89 93 L 08/10/18 16:40 82 20 166/89 92 L 08/10/18 16:30 78 20 163/90 95 08/10/18 16:20 75 20 163/90 91 L 08/10/18 16:10 163/90 08/10/18 16:00 78 20 163/91 96 08/10/18 15:52 95 08/10/18 15:18 20 08/10/18 14:37 97.3 F L 82 20 154/86 97 Intake and Output 08/10/18 08/11/18 08/11/18 22:59 06:59 14:59 Other: Voiding Method Toilet Toilet # Voids 1 Results 08/10/18 15:15 08/10/18 15:15 Cardiac Enzymes 08/10/18 08/10/18 08/10/18 Range/Units 15:15 15:15 21:06 AST 29 (14-36) U/L Troponin I <0.012 <0.012 (0.000-0.034) ng/mL 08/11/18 Range/Units 03:18 AST (14-36) U/L Troponin I <0.012 (0.000-0.034) ng/mL Coagulation 08/10/18 Range/Units 15:15 PT 9.5 (9.0-12.0) sec APTT 23.4 (22.0-30.0) sec Lipids 08/11/18 Range/Units 03:18 Triglycerides 379 H (<150) mg/dL Cholesterol 239 H (<200) mg/dL HDL Cholesterol 49 (40-60) mg/dL CBC 08/10/18 Range/Units 15:15 WBC 8.9 (3.8-10.6) k/uL RBC 4.94 (3.80-5.40) m/uL Hgb 13.1 (11.4-16.0) gm/dL Hct 40.1 (34.0-46.0) % Plt Count 287 (150-450) k/uL Comprehensive Metabolic Panel 08/10/18 Range/Units 15:15 Sodium 138 (137-145) mmol/L Potassium 4.0 (3.5-5.1) mmol/L Chloride 100 (98-107) mmol/L Carbon Dioxide 27 (22-30) mmol/L BUN 16 (7-17) mg/dL Creatinine 0.51 L (0.52-1.04) mg/dL Glucose 177 H (74-99) mg/dL Calcium 9.7 (8.4-10.2) mg/dL AST 29 (14-36) U/L ALT 32 (9-52) U/L Alkaline Phosphatase 104 (38-126) U/L Total Protein 7.2 (6.3-8.2) g/dL Albumin 4.2 (3.5-5.0) g/dL Current Medications Generic Name Dose Route Start Last Admin Trade Name Freq PRN Reason Stop Dose Admin Albuterol Sulfate 2.5 mg 08/10/18 22:16 Ventolin Nebulized INHALATION RT-Q6H PRN Shortness Of Breath Aspirin 325 mg 08/11/18 09:00 Aspirin PO DAILY ROSANNE Budesonide/Formoterol Fumarate 2 puff 08/11/18 08:00 08/11/18 07:41 Symbicort 160-4.5 Mcg Inhaler INHALATION 2 puff RT-BID ROSANNE Administration Diltiazem HCl 240 mg 08/11/18 21:00 Cardizem Cd PO HS ROSANNE Insulin Aspart 0 unit 08/10/18 22:16 08/10/18 23:33 Novolog SQ 5 unit ACHS ROSANNE Administration Protocol Insulin Detemir 10 unit 08/10/18 22:15 08/10/18 23:33 Levemir SQ 10 unit HS ROSANNE Administration Levothyroxine Sodium 25 mcg 08/11/18 06:30 08/11/18 05:46 Synthroid PO 25 mcg 0630 ROSANNE Administration Naloxone HCl 0.2 mg 08/10/18 17:51 Narcan IV Q2M PRN Opioid Reversal Nitroglycerin 0.4 mg 08/10/18 19:32 Nitrostat SUBLINGUAL Q5M PRN Chest Pain Pravastatin Sodium 80 mg 08/11/18 21:00 Pravachol PO HS [facility] Intake and Output 08/10/18 08/11/18 08/11/18 22:59 06:59 14:59 Other: Voiding Method Toilet Toilet # Voids 1 08/10/18 15:15 08/10/18 15:15
[2018-08-11] MEDS: MIDAZOLAM (PF) 2 MG/2 ML VIAL IVP ONE ×2 (11:19→12:17)
[2018-08-11] MEDS ORDERED: LIDOCAINE 1% INJ 10MG/ML (20 ML MDV) SQ ONE (11:20)
[2018-08-11] MEDS ORDERED: VERAPAMIL SYRINGE (5 MG/10 ML) INTRAARTER ONE (11:23)
[2018-08-11] MEDS ORDERED: HEPARIN SODIUM 1,000 UN/ML (10ML VL) IV ONE (11:27)
--- NOTE | 2018-08-11 11:50 | P.CARDCATH ---
Date of Procedure: 08/11/18 Preoperative Diagnosis: Unstable angina Postoperative Diagnosis: The same. Patient has critical lesion involving the mid LAD Procedure(s) Performed: Left heart catheterization without left ventriculography Description of Procedure: HISTORY: This is a 57-year-old female with history of hypertension, diabetes who was admitted to the hospital with chest pain size to of unstable angina. Patient had a previous stress test which showed possible ischemia of the apex. She was advised to have a catheterization in the past. Patient wants to go ahead and have cardiac catheterization at this time. CONSENT:I have discussed the risks, benefits and alternative therapies for the above-mentioned procedure and for both sedation/analgesia as well as necessary blood product administration, if indicated, as they pertain to this patient. The patient has indicated understanding and acceptance of the risks and procedures discussed. PROCEDURE: Patient was brought to the lab in a fasting state. Patient was given some IV sedation. The right wrist is infiltrated with lidocaine and right radial artery was entered using Seldinger technique. A 6-German catheter was left in place and selective coronary arteriography was performed. Patient tolerated the procedure well. . No immediate complications were noted and patient is found to have a critical lesion in the mid LAD and waiting to have stent placement by Dr. Donovan. Conscious Sedation: Versed 0.5mg Fentanyl 0 g Duration 15minutes HEMODYNAMICS: The aortic pressure is 170/80. Left ventricular end-diastolic pressure is 10. There was no gradient across the aortic valve SELECTIVE CORONARY ARTERIOGRAPHY: LEFT MAIN: Long with a smoker narrowing of the distal left main with 30% luminal narrowing. THE LEFT ANTERIOR DESCENDING CORONARY ARTERY: This is a good caliber vessel with about 80-90% stenosis in midportion. This most and narrowing of 30-40% involving the proximal LAD THE LEFT CIRCUMFLEX AND IS CORONARY ARTERY: This is a moderate caliber vessel and free of any significant occlusive disease. Given sized to a moderate caliber OM branch THE RIGHT CORONARY ARTERY: This is a dominant vessel giving rise to good-sized PDA and PLV. The right coronary artery is free of any occlusive disease LEFT VENTRICULOGRAPHY: Not performed FINAL IMPRESSION: Critical lesion involving the mid LAD. Mild disease involving the left main and proximal left PLAN: Continuation maximal medical therapy. Stent placement of the mid LAD to be done by Dr. Stark PROGNOSIS: Fair
[2018-08-11] MEDS ORDERED: BIVALIRUDIN BOLUS 250 MG/50 ML IV ONE (12:14)
[2018-08-11] MEDS ORDERED: BIVALIRUDIN 250 MG in SODIUM CHLORIDE 0.9% 50 ML IV ONE (12:14)
[2018-08-11] MEDS ORDERED: IOPAMIDOL-370 100ML BTL INJ ONE ×2 (12:21→12:33)
[2018-08-11] MEDS ORDERED: NITROGLYCERIN 1000MCG/10ML SYRINGE INTRACORON ONE (12:27)
[2018-08-11] MEDS ORDERED: TICAGRELOR 90 MG TAB PO ONE (12:31)
[2018-08-11] MEDS ORDERED: ZOLPIDEM 5 MG TAB PO PRN (12:51)
[2018-08-11] MEDS ORDERED: NITROGLYCERIN SL TABS 0.4 MG TAB SUBLINGUAL PRN (12:51)
[2018-08-11] MEDS ORDERED: RX INFO: IV CONTRAST WAS GIVEN 1 EACH MISC MISCELLANE PRN (12:51)
[2018-08-11] MEDS ORDERED: ATROPINE SULFATE 0.1 MG/ML 10ML SYRINGE IV PRN (12:51)
[2018-08-11] MEDS ORDERED: MAG HYDROX/AL HYDROX/SIMETH 30 ML CUP PO PRN (12:51)
[2018-08-11] MEDS ORDERED: SODIUM CHLORIDE 0.9% 1,000 ML IV SCH (13:00)
--- NOTE | 2018-08-11 13:14 | PTCA ---
PERCUTANEOUSTRANS CORORONARY ANGIOGRAPHY DATE OF SERVICE: August 11, 2018 PERFORMING PHYSICIAN: Shubham Donovan MD, switchman. PROCEDURE PERFORMED: Successful stenting of the mid left anterior descending artery using 3.0 x 18 mm Xience LINDA with good angiographic results and reduction of stenosis from 80% to 0%. INDICATION: This is a 57-year-old female patient with diabetes, hypertension, and dyslipidemia, who presented to the hospital with chest discomfort. She underwent a heart catheterization by Dr. Hernandez and was found to have severe disease involving the left mid left anterior descending artery. Because of that, a PCI of the LAD was advised. APPROACH: Right radial artery. COMPLICATION: None. LEVEL OF SEDATION: Moderate with sedation length of 24 minutes. PROCEDURE DESCRIPTION: Please refer to the diagnostic heart catheterization that was performed by Dr. Hernandez. Anticoagulation was initiated using Angiomax. Subsequently I did engage the left main using JL3.5 guide. I did wire the LAD using a run-through wire and the wire was positioned in the distal LAD. After that, I did balloon angioplasty using 3.0 x 12 mm balloon before I deployed 3.0 x 18 mm Xience drug-eluting stent where the stent was positioned under fluoroscopy guidance and deployed under 10 atmospheres for 20 seconds. The following angiogram showed good angiographic results. The procedure was completed without any complication. POSTPROCEDURE MANAGEMENT: 1. Dual antiplatelet therapy. 2. Risk factors modifications. 3. Follow up with the patient. MMDAVIDL / HENRYN: [id number] /
[2018-08-11 13:15] LABS: Glucose,Whole Blood 154 mg/dL (75-99)
[2018-08-11] MEDS: MAGNESIUM SULFATE-D5W PMX 1 GM in DEXTROSE/WATER 1 100ML.BAG IVPB SCH ×3 (15:23→17:14)
[2018-08-11 16:50] LABS: Glucose,Whole Blood 208 mg/dL (75-99)
[2018-08-11 19:49] LABS: Glucose,Whole Blood 184 mg/dL (75-99)
[2018-08-11] MEDS ORDERED: PRAVASTATIN SODIUM 80 MG TAB PO SCH (21:00)
[2018-08-11] MEDS ORDERED: DILTIAZEM CD 240 MG CAP.ER.24H PO SCH (21:00)
[2018-08-11] MEDS: TICAGRELOR 90 MG TAB PO SCH (21:15)
[2018-08-11] MEDS: INSULIN DETEMIR (LEVEMIR) 100 UNIT/ML SYR SQ SCH (21:15)
[2018-08-12 06:52] LABS: Glucose,Whole Blood 182 mg/dL (75-99)
[2018-08-12] MEDS: INSULIN ASPART (NovoLOG) 100 UNIT/ML VIAL SQ SCH ×2 (07:05→12:54)
[2018-08-12] MEDS: LEVOTHYROXINE 25 MCG TAB PO SCH (07:05)
[2018-08-12 08:19] LABS: Basophils % (A) 0 %; Eosinophils # (A) 0.2 k/uL (0-0.7); Eosinophils % (A) 2 %; HCT 38.6 % (34.0-46.0); HGB 12.3 gm/dL (11.4-16.0); Lymphocytes # (A) 1.8 k/uL (1.0-4.8); Lymphocytes % (A) 20 %; MCHC 31.9 g/dL (31.0-37.0); MCV 81.6 fL (80.0-100.0); Mean Platelet Volume 6.7; Monocytes # (A) 0.2 k/uL (0-1.0); Monocytes % (A) 3 %; Neutrophils # (A) 6.7 k/uL (1.3-7.7); Neutrophils % (A) 73 %; Platelet Count 285 k/uL (150-450); RBC 4.73 m/uL (3.80-5.40); RDW 15.2 % (11.5-15.5); WBC 9.2 k/uL (3.8-10.6)
[2018-08-12 08:34] LABS: Anion Gap 12 mmol/L; Blood Urea Nitrogen 13 mg/dL (7-17); Carbon Dioxide 23 mmol/L (22-30); Chloride 102 mmol/L (98-107); Glucose 181 mg/dL (74-99); Magnesium 1.9 mg/dL (1.6-2.3); Potassium 4.4 mmol/L (3.5-5.1); Sodium 137 mmol/L (137-145)
[2018-08-12] MEDS ORDERED: ASPIRIN 81 MG PO SCH (09:00)
[2018-08-12] MEDS: TICAGRELOR 90 MG TAB PO SCH (09:35)
[2018-08-12 10:25] VITALS: BMI 49.7
[2018-08-12 10:41] VITALS: RESP 18
[2018-08-12] MEDS: SYMBICORT 160-4.5 MCG INHALER INHALATION SCH (11:01)
[2018-08-12 11:31] VITALS: BP 168/77; PULSE 78; TEMP 97.9
--- NOTE | 2018-08-12 11:39 | P.PN ---
Subjective Patient had a heart cath with stent placed in the mid LAD Patient comparison no chest pain no racing heart Blood pressure is elevated this morning. She's been having high blood pressures yesterday as well Objective - Vital Signs Vital signs: Vital Signs Temp 97.9 F 08/12/18 11:30 Pulse 78 08/12/18 11:30 Resp 18 08/12/18 11:30 BP 168/77 08/12/18 11:30 Pulse Ox 98 08/12/18 11:30 Intake & Output 08/11/18 08/12/18 08/12/18 18:59 06:59 18:59 Intake Total 1290 225 200 Balance 1290 225 200 Weight 107.955 kg Intake: IV 510 Sodium Chloride 0.9% 1, 375 000 ml @ 75 mls/hr IV . [id number] ROSANNE Rx#:[id number] Intake, IV Titration 300 225 Amount Magnesium Sulfate-D5w Pmx 300 1 gm In Dextrose/Water 1 100ml.bag @ 100 mls/hr IVPB Q1H ROSANNE Rx#: [id number] Sodium Chloride 0.9% 1, 225 000 ml @ 75 mls/hr IV . [id number] ROSANNE Rx#:[id number] Oral 480 200 Other: Voiding Method Toilet Toilet Toilet # Voids 2 2 1 - Exam On exam, alert and oriented x3. HEENT: Conjunctivae normal. eyes normal. NECK: No JVD. No thyroid enlargement. No LNs CARDIOVASCULAR: S1, S2 positive RESPIRATION: Breath sounds diminished in the bases. No rhonchi or crackles. No bronchial breathing. ABDOMEN: Soft, nontender . No guarding. no masses palpable. No ascites, No hepatosplenomegaly.Bowel sounds heard. Extremities: No edema. no swelling . Patient is having scar tone in the right breast status post cardiac cath NERVOUS SYSTEM: Cranial N 2-12 grossly normal. Moves all 4 limbs. No focal def icits. No sensory deficit. No signs of cerebellar dysfucntion. Skin: no ulcer no rash - Labs CBC & Chem 7: 08/12/18 07:46 08/12/18 07:46 Labs: Abnormal Lab Results - Last 24 Hours (Table) 08/11/18 08/11/18 08/11/18 Range/Units 12:59 16:48 19:47 Glucose (74-99) mg/dL POC Glucose (mg/dL) 154 H 208 H 184 H (75-99) mg/dL 08/12/18 08/12/18 Range/Units 06:47 07:46 Glucose 181 H (74-99) mg/dL POC Glucose (mg/dL) 182 H (75-99) mg/dL Assessment and Plan Assessment: - Chest pain need to rule out cardiac cause - History of diabetes recently started on new medications - Hypertension - Hyperlipidemia - Obesity - History of CVA - History of seizures - History of GERD - History of sleep apnea - History of hypothyroidism Plan - We will put her back on the Cozaar if okay with cardiology and the patient. Patient has tons of ALLERGIES. She was on Cozaar recently, don't know why it was stopped. We'll make sure it's okay - Monitor blood pressure - Continue rest of medications - We'll follow up on the patient Time with Patient: Greater than 30
[2018-08-12] MEDS ORDERED: LOSARTAN 50 MG TAB PO SCH (11:45)
[2018-08-12 12:39] LABS: Glucose,Whole Blood 174 mg/dL (75-99)
--- NOTE | 2018-08-12 12:41 | PN ---
PROGRESS NOTE Halima is a 57-year-old lady with coronary artery disease status post angioplasty of mid LAD. This morning she is feeling well, free of chest pain. Ambulating without any problems and is stable for discharge. CURRENT MEDICATIONS: Current medications include aspirin, Cardizem CD, insulin, Cozaar 50 mg daily, Brilinta 90 mg b.i.d. PHYSICAL EXAMINATION: On exam, comfortable at rest. Blood pressure is elevated at 168/77, respiratory rate is 18. Chest exam reveals good air entry bilaterally. Heart exam reveals first and second heart sounds. No gallop. Examination of extremities did not reveal edema. Peripheral pulses are felt. LABS: Labs show that the hemoglobin is 12.3. Potassium is 4.4. Creatinine is 0.5. ASSESSMENT: 1. Unstable angina, status post catheterization and angioplasty of the LAD. 2. Uncontrolled hypertension. PLAN: Patient used to be on Cozaar at home in the past. We will resume it. MMODL / IJN: [id number] /
--- NOTE | 2018-08-12 13:34 | P.DS ---
Providers Date of admission: 08/11/18 13:16 Expected date of discharge: 08/12/18 Attending physician: Lorne Pino Consults: 08/10/18 17:51 Consult Physician Stat Consulting Provider: Shubham Donovan Consult Reason/Comments: chest pain Do you want consulting provider notified?: Yes 08/11/18 12:51 Consult Physician Routine Consulting Provider: [facility] Consult Reason/Comments: Post Interventional patient Do you want consulting provider notified?: Already Contacted Primary care physician: León Martin MD Hospital Course: Discharge diagnosis - Angina status post heart cath and stenting of the mid LAD - Hypertension - Hyperlipidemia - Diabetes - Obesity Hospital course Very pleasant 57-year-old female comes in with complaints of chest pain. She was recently started on new medication called Lei for her diabetes and she thought that it this is causing her symptoms. She was seen by cardiology and was bordered for a heart cath. She had critical lesion in the mid LAD which was stented. She tolerated the procedure good. Status post procedure she was doing okay. Her blood pressure slightly elevated. Losartan was added. Cardiology cleared the patient for discharge and follow was placed in the discharge orders. Patient will does be discharged today Patient Condition at Discharge: Stable Plan - Discharge Summary Discharge Rx Participant: No New Discharge Prescriptions: New Aspirin 81 mg PO DAILY #30 chew Ticagrelor [Brilinta] 90 mg PO BID #60 tab Losartan [Cozaar] 50 mg PO DAILY #30 tab Continue Loratadine [Claritin] 10 mg PO HS Diltiazem Cd [Cardizem CD] 240 mg PO HS rOPINIRole HCL [Requip Xl] 4 mg PO HS metFORMIN HCL [Glucophage] 1,000 mg PO BID Insulin Aspart [NovoLOG Flexpen] 20 unit SQ AC-TID Budesonide-Formot 160-4.5 Mcg [Symbicort 160-4.5 Mcg Inhaler] 2 puff INHAL ATION RT-BID Pravastatin Sodium [Pravachol] 80 mg PO HS Levothyroxine Sodium [Synthroid] 25 mcg PO DAILY Albuterol Sulfate [Proair Hfa] 1 - 2 puff INHALATION RT-Q6H PRN PRN Reason: Shortness Of Breath Insulin Glargine [Lantus] 26 unit SQ HS Insulin Aspart [NovoLOG Flexpen] See Protocol SQ AC-TID Dulaglutide [Trulicity] 0.75 mg SQ MO Discharge Medication List Diltiazem Cd [Cardizem CD] 240 mg PO HS 06/09/15 [History] Insulin Aspart [NovoLOG Flexpen] 20 unit SQ AC-TID 06/09/15 [History] Loratadine [Claritin] 10 mg PO HS 06/09/15 [History] metFORMIN HCL [Glucophage] 1,000 mg PO BID 06/09/15 [History] rOPINIRole HCL [Requip Xl] 4 mg PO HS 06/09/15 [History] Budesonide-Formot 160-4.5 Mcg [Symbicort 160-4.5 Mcg Inhaler] 2 puff INHALATION RT-BID 03/17/16 [History] Albuterol Sulfate [Proair Hfa] 1 - 2 puff INHALATION RT-Q6H PRN 08/10/18 [History] Dulaglutide [Trulicity] 0.75 mg SQ MO 08/10/18 [History] Insulin Aspart [NovoLOG Flexpen] See Protocol SQ AC-TID 08/10/18 [History] Insulin Glargine [Lantus] 26 unit SQ HS 08/10/18 [History] Levothyroxine Sodium [Synthroid] 25 mcg PO DAILY 08/10/18 [History] Pravastatin Sodium [Pravachol] 80 mg PO HS 08/10/18 [History] Aspirin 81 mg PO DAILY #30 chew 08/12/18 [Rx] Losartan [Cozaar] 50 mg PO DAILY #30 tab 08/12/18 [Rx] Ticagrelor [Brilinta] 90 mg PO BID #60 tab 08/12/18 [Rx] Follow up Appointment(s)/Referral(s): Crystal Hernandez MD [STAFF PHYSICIAN] - 1 Week (Spoke to photographic colorist. Office to call with appointment time) León Martin MD [Primary Care Provider] - 08/18/18 10:30 am () Activity/Diet/Wound Care/Special Instructions: He started to have any chest pain, racing heart, if you agree shortness of breath or cough, bleeding from any sites, any dark colored stool, any bloody vomitus, any lightheadedness or dizziness, please come to the ER immediately Discharge Disposition: HOME SELF-CARE
[2018-08-12] MEDS ORDERED: rOPINIRole HCL 4 MG TABLET PO SCH (21:00)
== END 2018-08-12 14:40 | disposition home or self-care (01) | DRG 247 ==
LOC: EC 14:30 → 1SOBS 17:22 → OBSVTOIN 08-11 13:16 → 1SOBS 08-11 13:43 → 3SCARD 08-11 16:53
PROVIDERS: ADMIT Internal Medicine; ATTEND Internal Medicine
PROC: B2111ZZ Fluoroscopy of Multiple Coronary Arteries using Low Osmolar Contrast (ICD-10-PCS; 2018-08-11)
PROC: 027034Z Dilation of Coronary Artery, One Artery with Drug-eluting Intraluminal Device, Percutaneous Approach (ICD-10-PCS; principal; 2018-08-11 11:00)
PROC: 4A023N7 Measurement of Cardiac Sampling and Pressure, Left Heart, Percutaneous Approach (ICD-10-PCS; 2018-08-11 11:00)
DX: I25.110 Atherosclerotic heart disease of native coronary artery with unstable angina pectoris (principal); Z68.42 Body mass index [BMI] 45.0-49.9, adult; E11.9 Type 2 diabetes mellitus without complications; I10 Essential (primary) hypertension; E03.9 Hypothyroidism, unspecified; E66.01 Morbid (severe) obesity due to excess calories; K76.0 Fatty (change of) liver, not elsewhere classified; K58.9 Irritable bowel syndrome, unspecified; I45.10 Unspecified right bundle-branch block; F90.9 Attention-deficit hyperactivity disorder, unspecified type; G25.81 Restless legs syndrome; E73.9 Lactose intolerance, unspecified; E78.5 Hyperlipidemia, unspecified; E83.42 Hypomagnesemia; F32.9 Major depressive disorder, single episode, unspecified; F41.9 Anxiety disorder, unspecified; G40.909 Epilepsy, unspecified, not intractable, without status epilepticus; G47.33 Obstructive sleep apnea (adult) (pediatric); H91.90 Unspecified hearing loss, unspecified ear; I27.20 Pulmonary hypertension, unspecified; J44.9 Chronic obstructive pulmonary disease, unspecified; K21.9 Gastro-esophageal reflux disease without esophagitis; K22.70 Barrett's esophagus without dysplasia; Z79.4 Long term (current) use of insulin; Z90.710 Acquired absence of both cervix and uterus; Z86.73 Personal history of transient ischemic attack (TIA), and cerebral infarction without residual deficits; Z82.5 Family history of asthma and other chronic lower respiratory diseases; Z82.49 Family history of ischemic heart disease and other diseases of the circulatory system; Z79.899 Other long term (current) drug therapy; Z79.890 Hormone replacement therapy; Z79.51 Long term (current) use of inhaled steroids; Z97.4 Presence of external hearing-aid
CPT/HCPCS: 36415; 71046; 80048; 80053; 80061; 83735; 83880; 84484; 85025; 85610; 85730; 93005; 93306; 93458; 94640; 96360; 96361; 99285; C1874

== ENCOUNTER 2020-04-19 01:07 | Inpatient (IN) | payer OTHER ==
[2020-04-19] MEDS ORDERED: SODIUM CHLORIDE 0.9% 500 ML 500 ML IV STA (01:26)
[2020-04-19] MEDS ORDERED: HYDROmorphone 0.5 MG/0.5 ML SYRINGE IVP STA ×2 (01:26→02:59)
[2020-04-19] MEDS ORDERED: METOCLOPRAMIDE 5 MG/ML 2 ML VIAL IVP STA (01:27)
[2020-04-19] MEDS ORDERED: diphenhydrAMINE 50 MG/ML 1 ML VIAL IVP STA (01:27)
[2020-04-19 01:59] LABS: Basophils % (A) 0 %; Eosinophils # (A) 0.3 k/uL (0-0.7); Eosinophils % (A) 3 %; HCT 39.3 % (34.0-46.0); HGB 12.8 gm/dL (11.4-16.0); Lymphocytes # (A) 2.1 k/uL (1.0-4.8); Lymphocytes % (A) 22 %; MCH 25.2 pg (25.0-35.0); MCHC 32.5 g/dL (31.0-37.0); MCV 77.5 fL (80.0-100.0); Mean Platelet Volume 7.2; Microcytosis Slight; Monocytes # (A) 0.3 k/uL (0-1.0); Monocytes % (A) 3 %; Neutrophils # (A) 6.6 k/uL (1.3-7.7); Neutrophils % (A) 70 %; Platelet Count 334 k/uL (150-450); RBC 5.08 m/uL (3.80-5.40); RDW 15.4 % (11.5-15.5); WBC 9.3 k/uL (3.8-10.6)
[2020-04-19 02:09] LABS: ALT 24 U/L (4-34); AST 25 U/L (14-36); African American GFR (CKD) >90 (>60 ml/min/1.73 sqM); Albumin 4.1 g/dL (3.5-5.0); Alkaline Phosphatase 107 U/L (38-126); Anion Gap 8 mmol/L; Blood Urea Nitrogen 15 mg/dL (7-17); Calcium 9.7 mg/dL (8.4-10.2); Carbon Dioxide 24 mmol/L (22-30); Chloride 103 mmol/L (98-107); Glucose 188 mg/dL (74-99); Lipase 57 U/L (23-300); Non-African American GFR(CKD) 89 (>60 ml/min/1.73 sqM); Potassium 4.4 mmol/L (3.5-5.1); Sodium 135 mmol/L (137-145); Total Bilirubin 0.4 mg/dL (0.2-1.3); Total Protein 7.1 g/dL (6.3-8.2)
--- NOTE | 2020-04-19 02:18 | ED ---
Abdominal Pain HPI - General Source: patient Mode of arrival: ambulatory Limitations: no limitations <Jazmin Cervantes - Last Filed: 04/19/20 03:56> <Shaun Lawrence - Last Filed: 04/19/20 04:03> - General Chief Complaint: Abdominal Pain Stated Complaint: Left side pain Time Seen by Provider: 04/19/20 01:19 - History of Present Illness Initial Comments: 59-year-old female patient presents to the emergency department today for evaluation of left side abdominal pain and left lower quadrant pain. Patient states the pain has been present for the last couple days but worsening. States she is nauseated and has had no appetite. Denies fever or chills. Denies any hematuria, dysuria, urinary frequency, urinary urgency. Denies any constipation or diarrhea. States she has had hysterectomy, cholecystectomy in the past no other abdominal surgeries. Patient denies any recent rash, cough, shortness of breath, chest pain, back pain, numbness, tingling, dizziness, weakness, headache, visual changes, or any other complaints. (Jazmin Cervantes) - Related Data Home Medications Medication Instructions Recorded Confirmed Diltiazem Cd [Cardizem CD] 240 mg PO HS 06/09/15 08/10/18 Insulin Aspart [NovoLOG Flexpen] 20 unit SQ AC-TID 06/09/15 08/10/18 Loratadine [Claritin] 10 mg PO HS 06/09/15 08/10/18 metFORMIN HCL [Glucophage] 1,000 mg PO BID 06/09/15 08/10/18 rOPINIRole HCL [Requip Xl] 4 mg PO HS 06/09/15 08/10/18 Budesonide-Formot 160-4.5 Mcg 2 puff INHALATION RT-BID 03/17/16 08/10/18 [Symbicort 160-4.5 Mcg Inhaler] Albuterol Sulfate [Proair Hfa] 1 - 2 puff INHALATION RT-Q6H PRN 08/10/18 08/10/18 Dulaglutide [Trulicity] 0.75 mg SQ MO 08/10/18 08/10/18 Insulin Aspart [NovoLOG Flexpen] See Protocol SQ AC-TID 08/10/18 08/10/18 Insulin Glargine [Lantus] 26 unit SQ HS 08/10/18 08/10/18 Levothyroxine Sodium [Synthroid] 25 mcg PO DAILY 08/10/18 08/10/18 Pravastatin Sodium [Pravachol] 80 mg PO HS 08/10/18 08/10/18 Previous Rx's Medication Instructions Recorded Aspirin 81 mg PO DAILY #30 chew 08/12/18 Losartan [Cozaar] 50 mg PO DAILY #30 tab 08/12/18 Ticagrelor [Brilinta] 90 mg PO BID #60 tab 08/12/18 Allergies Allergy/AdvReac Type Severity Reaction Status Date / Time ammonia Allergy Unknown Verified 04/19/20 01:17 barium sulfate Allergy Unknown Verified 04/19/20 01:17 dulaglutide [From Trulicity] Allergy Dyspnea Verified 04/19/20 01:17 exenatide [From Byetta] Allergy Unknown Verified 04/19/20 01:17 feathers Allergy Unknown Verified 04/19/20 01:17 fexofenadine HCl Allergy Unknown Verified 04/19/20 01:17 [From Elena] hydrochlorothiazide Allergy Unknown Verified 04/19/20 01:17 influenza virus vaccine, Allergy Unknown Verified 04/19/20 01:17 specific isosorbide [From Imdur] Allergy Unknown Verified 04/19/20 01:17 meperidine HCl [From Demerol] Allergy Anaphylaxis Verified 04/19/20 01:17 nifedipine [From Procardia] Allergy Unknown Verified 04/19/20 01:17 nitroglycerin Allergy Unknown Verified 04/19/20 01:17 ondansetron Allergy Unknown Verified 04/19/20 01:17 [From Zofran (as hydrochloride)] paroxetine [From Paxil] Allergy Unknown Verified 04/19/20 01:17 paroxetine HCl [From Paxil] Allergy Unknown Verified 04/19/20 01:17 sertraline HCl [From Zoloft] Allergy Unknown Verified 04/19/20 01:17 simvastatin [From Zocor] Allergy Unknown Verified 04/19/20 01:17 Tjmrmsi-Gbv-Hqp Reductase Allergy Unknown Verified 04/19/20 01:17 Inhibitor venom-honey bee Allergy Anaphylaxis Verified 04/19/20 01:17 [bee venom (honey bee)] zolpidem [From Ambien] Allergy Unknown Verified 04/19/20 01:17 zolpidem tartrate Allergy Unknown Verified 04/19/20 01:17 [From Ambien] lactose AdvReac Nausea & Verified 04/19/20 01:17 Vomiting & Diarrhea hay Allergy Unknown Uncoded 04/19/20 01:17 lysol Allergy Unknown Uncoded 04/19/20 01:17 Review of Systems ROS Other: All systems not noted in ROS Statement are negative. <Jazmin Cervantes - Last Filed: 04/19/20 03:56> ROS Other: All systems not noted in ROS Statement are negative. <Shaun Lawrence - Last Filed: 04/19/20 04:03> ROS Statement: Those systems with pertinent positive or pertinent negative responses have been documented in the HPI. Past Medical History Past Medical History: Asthma, COPD, CVA/TIA, Diabetes Mellitus, GERD/Reflux, Hearing Disorder / Deafness, Hyperlipidemia, Hypertension, Seizure Disorder, Sleep Apnea/CPAP/BIPAP, Thyroid Disorder Additional Past Medical History / Comment(s): additional hx: right bundle branch block,barretts esophagus, migraines, deanna hearing aids, lung nodules, fatty liver, pulmonary hypertension, heart murmur,obesity, IBS, RLS, arthritis, ADHD, DJD, anemia, lactose intolerance History of Any Multi-Drug Resistant Organisms: None Reported Past Surgical History: Cholecystectomy, Hysterectomy Additional Past Surgical History / Comment(s): breast biopsy,esophageal surgery - 2002 Past Anesthesia/Blood Transfusion Reactions: No Reported Reaction Past Psychological History: Anxiety, Depression Smoking Status: Never smoker Past Alcohol Use History: None Reported Past Drug Use History: None Reported - Past Family History Mother History Unknown: Yes Family Medical History: Congestive Heart Failure (CHF), Myocardial Infarction ([place]) Additional Family Medical History / Comment(s): 77 Father History Unknown: Yes Family Medical History: COPD, Myocardial Infarction ([place]) Additional Family Medical History / Comment(s): at 56 Sister(s) History Unknown: Yes Family Medical History: Myocardial Infarction ([place]) Additional Family Medical History / Comment(s): at 56 <Jazmin Cervantes - Last Filed: 04/19/20 03:56> General Exam Limitations: no limitations General appearance: alert, in no apparent distress, other (Physical well- developed, well-nourished adult female patient in no acute distress. Vital signs upon presentation are temperature 98.5F, pulse 77, respirations 24, blood pressure 166/79, pulse ox 99% on room air.) Respiratory exam: Present: normal lung sounds bilaterally. Absent: respiratory distress, wheezes, rales, rhonchi, stridor Cardiovascular Exam: Present: regular rate, normal rhythm, normal heart sounds. Absent: systolic murmur, diastolic murmur, rubs, gallop, clicks GI/Abdominal exam: Present: soft, tenderness (Left lower quadrant), normal bowel sounds. Absent: distended, guarding, rebound, rigid Neurological exam: Present: alert, oriented X3, CN II-XII intact Psychiatric exam: Present: normal affect, normal mood Skin exam: Present: warm, dry, intact, normal color. Absent: rash <Jazmin Cervantes - Last Filed: 04/19/20 03:56> Course Vital Signs 04/19/20 04/19/20 01:14 02:17 Temperature 98.5 F Pulse Rate 77 89 Respiratory 24 16 Rate Blood Pressure 166/79 164/89 O2 Sat by Pulse 99 95 Oximetry Medical Decision Making - Lab Data Result diagrams: 04/19/20 01:38 04/19/20 01:38 - Radiology Data Radiology results: report reviewed, image reviewed <Jazmin Cervantes - Last Filed: 04/19/20 03:56> - Lab Data Result diagrams: 04/19/20 01:38 04/19/20 01:38 <Shaun Lawrence - Last Filed: 04/19/20 04:03> - Medical Decision Making 59-year-old female patient presents to the emergency department today for evaluation of left lower quadrant abdominal pain. Physical examination did reveal tenderness to the left lower quadrant. Labs reviewed and are unremarkable. CT abdomen and pelvis was obtained and showed an abrupt transition from dilated to nondilated colon concerning for focal area of colitis or neoplastic constricting lesion. Patient does report a history of colon cancer and her sibling, her last colonoscopy was 5 years ago. She states she has not passed gas for the last 24 hours. Denies any fever or chills. We will start Levaquin and Flagyl for possible colitis. We will admit with consult to surgery for further evaluation. Patient is agreeable with this plan. (Jazmin Cervantes) I saw this patient in conjunction with the nurse practitioner. I performed independent history and physical exam. Agree with case management. (Shaun Lawrence) - Lab Data Lab Results 04/19/20 04/19/20 04/19/20 Range/Units 01:38 01:38 01:38 WBC 9.3 (3.8-10.6) k/uL RBC 5.08 (3.80-5.40) m/uL Hgb 12.8 (11.4-16.0) gm/dL Hct 39.3 (34.0-46.0) % MCV 77.5 L (80.0-100.0) fL MCH 25.2 (25.0-35.0) pg MCHC 32.5 (31.0-37.0) g/dL RDW 15.4 (11.5-15.5) % Plt Count 334 (150-450) k/uL MPV 7.2 Neutrophils % 70 % Lymphocytes % 22 % Monocytes % 3 % Eosinophils % 3 % Basophils % 0 % Neutrophils # 6.6 (1.3-7.7) k/uL Lymphocytes # 2.1 (1.0-4.8) k/uL Monocytes # 0.3 (0-1.0) k/uL Eosinophils # 0.3 (0-0.7) k/uL Basophils # 0.0 (0-0.2) k/uL Microcytosis Slight Sodium 135 L (137-145) mmol/L Potassium 4.4 (3.5-5.1) mmol/L Chloride 103 (98-107) mmol/L Carbon Dioxide 24 (22-30) mmol/L Anion Gap 8 mmol/L BUN 15 (7-17) mg/dL Creatinine 0.73 (0.52-1.04) mg/dL Est GFR (CKD-EPI)AfAm >90 (>60 ml/min/1.73 sqM) Est GFR (CKD-EPI)NonAf 89 (>60 ml/min/1.73 sqM) Glucose 188 H (74-99) mg/dL Plasma Lactic Acid Mitchell (0.7-2.0) mmol/L Calcium 9.7 (8.4-10.2) mg/dL Total Bilirubin 0.4 (0.2-1.3) mg/dL AST 25 (14-36) U/L ALT 24 (4-34) U/L Alkaline Phosphatase 107 (38-126) U/L Total Protein 7.1 (6.3-8.2) g/dL Albumin 4.1 (3.5-5.0) g/dL Lipase 57 (23-300) U/L Urine Color Yellow Urine Appearance Clear (Clear) Urine pH 5.5 (5.0-8.0) Ur Specific [place] 1.024 (1.001-1.035) Urine Protein Trace H (Negative) Urine Glucose (UA) Trace H (Negative) Urine Ketones Negative (Negative) Urine Blood Negative (Negative) Urine Nitrite Negative (Negative) Urine Bilirubin Negative (Negative) Urine Urobilinogen <2.0 (<2.0) mg/dL Ur Leukocyte Esterase Large H (Negative) Urine RBC 3 (0-5) /hpf Urine WBC 27 H (0-5) /hpf Ur Squamous Epith Cells 8 H (0-4) /hpf Urine Mucus Rare H (None) /hpf 04/19/20 Range/Units 01:38 WBC (3.8-10.6) k/uL RBC (3.80-5.40) m/uL Hgb (11.4-16.0) gm/dL Hct (34.0-46.0) % MCV (80.0-100.0) fL MCH (25.0-35.0) pg MCHC (31.0-37.0) g/dL RDW (11.5-15.5) % Plt Count (150-450) k/uL MPV Neutrophils % % Lymphocytes % % Monocytes % % Eosinophils % % Basophils % % Neutrophils # (1.3-7.7) k/uL Lymphocytes # (1.0-4.8) k/uL Monocytes # (0-1.0) k/uL Eosinophils # (0-0.7) k/uL Basophils # (0-0.2) k/uL Microcytosis Sodium (137-145) mmol/L Potassium (3.5-5.1) mmol/L Chloride (98-107) mmol/L Carbon Dioxide (22-30) mmol/L Anion Gap mmol/L BUN (7-17) mg/dL Creatinine (0.52-1.04) mg/dL Est GFR (CKD-EPI)AfAm (>60 ml/min/1.73 sqM) Est GFR (CKD-EPI)NonAf (>60 ml/min/1.73 sqM) Glucose (74-99) mg/dL Plasma Lactic Acid Mitchell 1.5 (0.7-2.0) mmol/L Calcium (8.4-10.2) mg/dL Total Bilirubin (0.2-1.3) mg/dL AST (14-36) U/L ALT (4-34) U/L Alkaline Phosphatase (38-126) U/L Total Protein (6.3-8.2) g/dL Albumin (3.5-5.0) g/dL Lipase (23-300) U/L Urine Color Urine Appearance (Clear) Urine pH (5.0-8.0) Ur Specific [place] (1.001-1.035) Urine Protein (Negative) Urine Glucose (UA) (Negative) Urine Ketones (Negative) Urine Blood (Negative) Urine Nitrite (Negative) Urine Bilirubin (Negative) Urine Urobilinogen (<2.0) mg/dL Ur Leukocyte Esterase (Negative) Urine RBC (0-5) /hpf Urine WBC (0-5) /hpf Ur Squamous Epith Cells (0-4) /hpf Urine Mucus (None) /hpf - Radiology Data CT abdomen and pelvis is obtained. Report was reviewed in its entirety. Impression by Dr. Alfaro shows abrupt transition from dilated to nondilated colon and the lower aspect of the descending colon. This may represent a short segment of colitis; however, neoplastic constricting lesion she also be considered. (Jazmin Cervantes) Disposition Decision to Admit Reason: Admit from EC Decision Date: 04/19/20 Decision Time: 03:56 <Jazmin Cervantes - Last Filed: 04/19/20 03:56> <Shaun Lawrence - Last Filed: 04/19/20 04:03> Clinical Impression: Bowel obstruction Disposition: ADMITTED IP TO THIS [facility] Condition: Serious Referrals: [facility] [Primary Care Provider] - 1-2 days
[2020-04-19 03:01] LABS: Appearance,Urine Clear (Clear); Bilirubin,Urine Negative (Negative); Blood,Urine Negative (Negative); Color,Urine Yellow; Glucose,Urine (UA) Trace (Negative); Ketones,Urine Negative (Negative); Leukocyte Esterase,Urine Large (Negative); Mucus,Urine Rare /hpf; Nitrite,Urine Negative (Negative); PH, Urine 5.5 (5.0-8.0); Protein,Urine Trace (Negative); RBC,Urine 3 /hpf (0-5); Specific Gravity,Urine 1.024 (1.001-1.035); Squamous Epithelial Cell,Urine 8 /hpf (0-4); Urobilinogen,Urine <2.0 mg/dL (<2.0); WBC,Urine 27 /hpf (0-5)
--- NOTE | 2020-04-19 03:39 | CT ---
EXAM: CT Abdomen and Pelvis With Intravenous Contrast CLINICAL HISTORY: Left lower quadrant pain. TECHNIQUE: Axial computed tomography images of the abdomen and pelvis with intravenous contrast. CTDI is 49.6 mGy and DLP is 2085.8 mGy-cm. This CT exam was performed using one or more of the following dose reduction techniques: automated exposure control, adjustment of the mA and/or kV according to patient size, and/or use of iterative reconstruction technique. COMPARISON: No relevant prior studies available. FINDINGS: Lung bases: Unremarkable. No mass. No consolidation. ABDOMEN: Liver: Unremarkable. No mass. Gallbladder and bile ducts: Cholecystectomy. No ductal dilation. Pancreas: Unremarkable. No mass. No ductal dilation. Spleen: Unremarkable. No splenomegaly. Adrenals: Unremarkable. No mass. Kidneys and ureters: Unremarkable. No solid mass. No hydronephrosis. Stomach and bowel: There is an abrupt transition from distended colon to completely collapsed: In the lower aspect of the descending colon. There is mild infiltration in the surrounding fat immediately proximal to this area. No mucosal thickening. PELVIS: Appendix: No findings to suggest acute appendicitis. Bladder: Unremarkable. No mass. Reproductive: Hysterectomy. ABDOMEN and PELVIS: Intraperitoneal space: Unremarkable. No free air. No significant fluid collection. Bones/joints: No acute fracture. No dislocation. Soft tissues: Unremarkable. Vasculature: Unremarkable. No abdominal aortic aneurysm. Lymph nodes: Unremarkable. No enlarged lymph nodes. IMPRESSION: Abrupt transition from dilated to nondilated colon in the lower aspect of the descending colon. This may represent a short segment of colitis; however, a neoplastic constricting lesion should also be considered.
[2020-04-19] MEDS ORDERED: metroNIDAZOLE-NS PMX 500 MG in SALINE 1 100ML.BAG IVPB STA (03:53)
[2020-04-19] MEDS ORDERED: ONDANSETRON 4 MG/2 ML VIAL IVP PRN (03:53)
[2020-04-19] MEDS ORDERED: NALOXONE 0.4 MG/ML 1 ML VIAL IV PRN (03:53)
[2020-04-19] MEDS ORDERED: LEVOFLOXACIN 750MG-D5W PMX 750 MG in DEXTROSE/WATER 1 150ML.BAG IVPB STA (03:53)
[2020-04-19] MEDS ORDERED: TRIMETHOBENZAMIDE 100 MG/ML 2 ML VIAL IM PRN (03:58)
[2020-04-19] MEDS ORDERED: LEVOFLOXACIN 750MG-D5W PMX 750 MG in DEXTROSE/WATER 1 150ML.BAG IVPB SCH (04:00)
[2020-04-19] MEDS: SODIUM CHLORIDE 0.9% 1,000 ML IV SCH ×2 (04:16→17:50)
[2020-04-19] MEDS: HYDROmorphone 1 MG/ML 1 ML SYRINGE IVP PRN ×2 (04:51→13:40)
[2020-04-19] MEDS: INSULIN ASPART (NovoLOG) 100 UNIT/ML VIAL SQ SCH ×4 (08:42→21:21)
[2020-04-19] MEDS: metroNIDAZOLE-NS PMX 500 MG in SALINE 1 100ML.BAG IVPB SCH ×3 (08:53→21:21)
--- NOTE | 2020-04-19 10:10 | P.GSCN ---
History of Present Illness Consult date: 04/19/20 Reason for Consult: Abdominal pain History of present illness: 59-year-old female comes in the hospital complaining of left-sided abdominal samuel n. This is been present for the last 2-3 days. Patient feels slightly nauseated. She did have a bowel movement yesterday that was smaller than normal. She is passing less flatus. She has a brother with a history of colon cancer. She underwent CAT scan abdomen and pelvis and was found to have mild to moderate proximal colonic dilation with a fairly abrupt transition in the descending colon. There is no mass lesion at the site of transition in fact the colon beyond that point appears of decreased caliber. White blood cell count is normal. Last colonoscopy 5-6 years ago normal. Review of Systems The patient denies any acute changes in vision or hearing, no dysphagia or odynophagia, no chest pain or shortness of breath, no dysuria or hematuria, no headache, no runny nose, no rectal bleeding or melena, no unexplained weight loss Past Medical History Past Medical History: Asthma, COPD, CVA/TIA, Diabetes Mellitus, GERD/Reflux, Hearing Disorder / Deafness, Hyperlipidemia, Hypertension, Seizure Disorder, Sleep Apnea/CPAP/BIPAP, Thyroid Disorder Additional Past Medical History / Comment(s): additional hx: right bundle branch block,barretts esophagus, migraines, deanna hearing aids, lung nodules, fatty liver, pulmonary hypertension, heart murmur,obesity, IBS, RLS, arthritis, ADHD, DJD, anemia, lactose intolerance; last seizure 21 years ago, kidney stones x2 History of Any Multi-Drug Resistant Organisms: None Reported Past Surgical History: Cholecystectomy, Hysterectomy Additional Past Surgical History / Comment(s): breast biopsy,esophageal surgery - 2002 Past Anesthesia/Blood Transfusion Reactions: No Reported Reaction Past Psychological History: Anxiety, Depression Smoking Status: Never smoker Past Alcohol Use History: None Reported Past Drug Use History: None Reported - Past Family History Mother History Unknown: Yes Family Medical History: Congestive Heart Failure (CHF), Myocardial Infarction ( [place]) Additional Family Medical History / Comment(s): 77 Father History Unknown: Yes Family Medical History: COPD, Myocardial Infarction ([place]) Additional Family Medical History / Comment(s): at 56 Sister(s) History Unknown: Yes Family Medical History: Myocardial Infarction ([place]) Additional Family Medical History / Comment(s): at 56 Brother(s) Family Medical History: Cancer Additional Family Medical History / Comment(s): colon cancer Medications and Allergies Home Medications Medication Instructions Recorded Confirmed Type Loratadine [Claritin] 10 mg PO HS 06/09/15 04/19/20 History rOPINIRole HCL [Requip Xl] 4 mg PO HS 06/09/15 04/19/20 History Budesonide-Formot 160-4.5 Mcg 2 puff INHALATION RT-BID 03/17/16 04/19/20 History [Symbicort 160-4.5 Mcg Inhaler] Albuterol Sulfate [Proair Hfa] 1 - 2 puff INHALATION RT-Q6H PRN 08/10/18 04/19/20 History Ticagrelor [Brilinta] 90 mg PO BID #60 tab 08/12/18 04/19/20 Rx Aspirin 81 mg PO HS 04/19/20 04/19/20 History Atorvastatin [Lipitor] 10 mg PO MOFR 04/19/20 04/19/20 History Diltiazem Cd [Cardizem Cd] 300 mg PO HS 04/19/20 04/19/20 History Dulaglutide [Trulicity] 1.5 mg SQ MO 04/19/20 04/19/20 History EPINEPHrine (Auto Inject) [Epipen] 0.3 mg IM ONCE PRN 04/19/20 04/19/20 History Insulin Glargine,Hum.rec.anlog 40 unit SQ HS 04/19/20 04/19/20 History [Lantus Solostar] Losartan [Cozaar] 50 mg PO BID 04/19/20 04/19/20 History Miconazole Nitrate [Lotrimin AF 1 applic TOPICAL DAILY PRN 04/19/20 04/19/20 History Powder] Sennosides/Docusate Sodium [Senna 1 tab PO HS 04/19/20 04/19/20 History Plus 8.6-50 mg Tablet] metFORMIN HCL [Glucophage] 500 mg PO BID 04/19/20 04/19/20 History Allergies Allergy/AdvReac Type Severity Reaction Status Date / Time ammonia Allergy Unknown Verified 04/19/20 07:47 barium sulfate Allergy Unknown Verified 04/19/20 07:47 dulaglutide [From Trulicity] Allergy Dyspnea Verified 04/19/20 07:47 exenatide [From Byetta] Allergy Unknown Verified 04/19/20 07:47 feathers Allergy Unknown Verified 04/19/20 07:47 fexofenadine HCl Allergy Unknown Verified 04/19/20 07:47 [From Elena] hydrochlorothiazide Allergy Unknown Verified 04/19/20 07:47 influenza virus vaccine, Allergy Unknown Verified 04/19/20 07:47 specific isosorbide [From Imdur] Allergy Unknown Verified 04/19/20 07:47 meperidine HCl [From Demerol] Allergy Anaphylaxis Verified 04/19/20 07:47 nifedipine [From Procardia] Allergy Unknown Verified 04/19/20 07:47 nitroglycerin Allergy Unknown Verified 04/19/20 07:47 paroxetine [From Paxil] Allergy Unknown Verified 04/19/20 07:47 paroxetine HCl [From Paxil] Allergy Unknown Verified 04/19/20 07:47 sertraline HCl [From Zoloft] Allergy Unknown Verified 04/19/20 07:47 simvastatin [From Zocor] Allergy Unknown Verified 04/19/20 07:47 Lshrans-Dfy-Wsd Reductase Allergy Unknown Verified 04/19/20 07:47 Inhibitor venom-honey bee Allergy Anaphylaxis Verified 04/19/20 07:47 [bee venom (honey bee)] zolpidem [From Ambien] Allergy Unknown Verified 04/19/20 07:47 zolpidem tartrate Allergy Unknown Verified 04/19/20 07:47 [From Ambien] lactose AdvReac Nausea & Verified 04/19/20 07:47 Vomiting & Diarrhea hay Allergy Unknown Uncoded 04/19/20 01:17 lysol Allergy Unknown Uncoded 04/19/20 01:17 Surgical - Exam Vital Signs Temp Pulse Resp BP Pulse Ox 98.5 F 77 24 166/79 99 04/19/20 01:14 04/19/20 01:14 04/19/20 01:14 04/19/20 01:14 04/19/20 01:14 Physical exam: General: Well-developed, well-nourished HEENT: Normocephalic, sclerae nonicteric Abdomen: Mild distention, mild left-sided tenderness Extremities: No edema Neuro: Alert and oriented Results - Labs 04/19/20 01:38 04/19/20 01:38 Abnormal Lab Results - Last 24 Hours (Table) 04/19/20 04/19/20 04/19/20 Range/Units 01:38 01:38 01:38 MCV 77.5 L (80.0-100.0) fL Sodium 135 L (137-145) mmol/L Glucose 188 H (74-99) mg/dL Urine Protein Trace H (Negative) Urine Glucose (UA) Trace H (Negative) Ur Leukocyte Esterase Large H (Negative) Urine WBC 27 H (0-5) /hpf Ur Squamous Epith Cells 8 H (0-4) /hpf Urine Mucus Rare H (None) /hpf Microbiology - Last 24 Hours (Table) 04/19/20 01:38 Urine Culture - Preliminary Urine,Clean Catch Diabetes panel 04/19/20 Range/Units 01:38 Sodium 135 L (137-145) mmol/L Potassium 4.4 (3.5-5.1) mmol/L Chloride 103 (98-107) mmol/L Carbon Dioxide 24 (22-30) mmol/L BUN 15 (7-17) mg/dL Creatinine 0.73 (0.52-1.04) mg/dL Glucose 188 H (74-99) mg/dL Calcium 9.7 (8.4-10.2) mg/dL AST 25 (14-36) U/L ALT 24 (4-34) U/L Alkaline Phosphatase 107 (38-126) U/L Total Protein 7.1 (6.3-8.2) g/dL Albumin 4.1 (3.5-5.0) g/dL Calcium panel 04/19/20 Range/Units 01:38 Calcium 9.7 (8.4-10.2) mg/dL Albumin 4.1 (3.5-5.0) g/dL Pituitary panel 04/19/20 Range/Units 01:38 Sodium 135 L (137-145) mmol/L Potassium 4.4 (3.5-5.1) mmol/L Chloride 103 (98-107) mmol/L Carbon Dioxide 24 (22-30) mmol/L BUN 15 (7-17) mg/dL Creatinine 0.73 (0.52-1.04) mg/dL Glucose 188 H (74-99) mg/dL Calcium 9.7 (8.4-10.2) mg/dL Adrenal panel 04/19/20 Range/Units 01:38 Sodium 135 L (137-145) mmol/L Potassium 4.4 (3.5-5.1) mmol/L Chloride 103 (98-107) mmol/L Carbon Dioxide 24 (22-30) mmol/L BUN 15 (7-17) mg/dL Creatinine 0.73 (0.52-1.04) mg/dL Glucose 188 H (74-99) mg/dL Calcium 9.7 (8.4-10.2) mg/dL Total Bilirubin 0.4 (0.2-1.3) mg/dL AST 25 (14-36) U/L ALT 24 (4-34) U/L Alkaline Phosphatase 107 (38-126) U/L Total Protein 7.1 (6.3-8.2) g/dL Albumin 4.1 (3.5-5.0) g/dL Assessment and Plan (1) Bowel obstruction Narrative/Plan: 59-year-old female with colonic versus obstruction. Case discussed with radiology. They are recommending CT with rectal contrast and oral contrast at this time. This will be ordered urgently. Further recommendations will follow. Continue empiric antibiotics for possible colitis. Current Visit: Yes Status: Acute Code(s): K56.609 - UNSP INTESTNL OBST, UNSP TO PARTIAL VERSUS COMPLETE OBST SNOMED Code(s): 11329238
[2020-04-19] MEDS: IOPAMIDOL CONTRAST (ORAL USE) VIAL PO PRN ×2 (10:49→11:45)
--- NOTE | 2020-04-19 12:34 | CT ---
EXAMINATION TYPE: CT abdomen pelvis wo con DATE OF EXAM: 04/19/2020 COMPARISON: 04/19/2020 INDICATION: possible colonic bowel obstruction DLP: 1495.2 mGycm, Automated exposure control for dose reduction was used. CONTRAST: 0 mL of Isovue 300. Study performed with Oral Contrast TECHNIQUE: Axial images were obtained from above the diaphragm to the pubic rami in the axial plane a t 5 mm thick sections. Reconstructed images are reviewed on the computer in the coronal plane. FINDINGS: Limited CT sections are obtained the lung bases. The lung bases are clear. Note is made of reflux o f oral contrast into the distal esophagus during the exam. CT ABDOMEN: Liver: Normal Spleen: Normal Pancreas: Slightly atrophic Adrenal glands: The adrenal glands are normal. Gallbladder: Surgically absent Kidneys: No masses are evident. No hydronephrosis is present. No cysts are present. Some residual contrast is within the renal collecting system. There appears to be a phlebolith likely within the go oskar vein on the left, series 201 image 43. Aorta: Vascular calcification is within the aorta. Inferior vena cava: Normal. CT PELVIS: Oral contrast as to the distal ileum. Fecal debris is within the colon. Rectal contrast was utilized in the CT suite which extends to the mid to distal descending colon. Fecal debris is at that level. U nderlying mass is not clearly evident although this appears to be a level of obstruction. No signific ant wall thickening is appreciated. Inflammatory changes not identified. Appendix: Not visualized. No suspicious dilated tubular structure or inflammatory changes evident. Urinary bladder: Urinary bladder is normal Genitourinary structures: Uterus and ovaries are not identified. Osseous structures: No suspicious lytic or sclerotic lesions. Spondylolysis of L5 is evident. IMPRESSIONS: 1. There is obstruction at the level of the mid to distal left: 1 uncertain etiology. Discrete mass is not identified. Fecal debris extends to this level and with retrograde contrast the contrast exten ds to the same level. The etiology of the obstruction is not identified. This level corresponds to th e earlier exam. 2. Gastroesophageal reflux.
[2020-04-19 12:52] LABS: Glucose,Whole Blood 130 mg/dL (75-99)
[2020-04-19] MEDS: ONDANSETRON 4 MG/2 ML VIAL IVP PRN (15:44)
[2020-04-19] MEDS ORDERED: MAGNESIUM HYDROXIDE 2,400 MG/10 ML CUP PO PRN (17:58)
[2020-04-19] MEDS: MAGNESIUM HYDROXIDE 2,400 MG/10 ML CUP PO SCH (18:24)
[2020-04-19] MEDS: polyethylene glycoL 3350 17 GM POWD.PACK PO SCH (19:55)
[2020-04-19 20:08] LABS: Glucose,Whole Blood 119 mg/dL (75-99)
[2020-04-19] MEDS: DILTIAZEM CD 240 MG CAP.ER.24H PO SCH (20:22)
[2020-04-19] MEDS: TICAGRELOR 90 MG TAB PO SCH (21:21)
[2020-04-19] MEDS: SYMBICORT 160-4.5 MCG INHALER INHALATION SCH (21:35)
--- NOTE | 2020-04-19 23:20 | P.HPIM ---
History of Present Illness H&P Date: 04/19/20 Chief Complaint: Abdominal pain. Patient is a 59-year-old female with a known history of CVA/TIA, diabetes type 2 insulin-dependent, hypertension, hyperlipidemia, seizure disorder, obstructive sleep apnea on CPAP, hypothyroidism and anxiety/depression presents to ER with complaints of abdominal pain and left lower quadrant pain mainly. Patient has been having symptoms for the past 3 days which are worsening. Does have nausea and on and off constipation. Last bowel movement was 2 days ago which was hard stool as per patient. Denied any hematemesis or melena. No hematochezia. Denied any fever or chills. No cough or sputum production. No dysuria or hematuria. Patient had prior hysterectomy cholecystectomy in the past. Denied any recent illnesses. No sick contacts or travel. Laboratory data showed sodium 135, potassium 4.4, chloride 103, BUN 15 and creatinine 0.73 Urinalysis showed large leukocyte esterase and 27 WBCs and 80 squamous of the cells WBC 9.3 and hemoglobin 12.8 and MCV 77.5 and platelets 334 Patient has been afebrile CT of the abdomen pelvis showed abrupt transition from dilated to nondilated colon in the lower aspect of the descending colon. This may represent a short segment of colitis however neoplastic constricting lesion should also be considered. Review of Systems Constitutional: Patient denies any fever or chills . No generalized weakness or weight loss. Abdomen: Patient does have nausea no episodes of vomiting. Does have lower abdominal pain. No diarrhea.. Cardiovascular: Patient denies any chest pain or short of breath no palpitations. Respiratory: patient denied any cough or sputum production. No shortness of breath Neurologic: Patient denied any numbness or tingling headache. Musculoskeletal: Patient denies any complaints of joint swelling or deformity. Skin: Negative Psychiatric: Negative Endocrine: No heat or cold intolerance. No recent weight gain. Genitourinary: No dysuria or hematuria. All other 14 point ROS negative except the above Past Medical History Past Medical History: Asthma, COPD, CVA/TIA, Diabetes Mellitus, GERD/Reflux, Hearing Disorder / Deafness, Hyperlipidemia, Hypertension, Seizure Disorder, Sleep Apnea/CPAP/BIPAP, Thyroid Disorder Additional Past Medical History / Comment(s): additional hx: right bundle branch block,barretts esophagus, migraines, deanna hearing aids, lung nodules, fatty liver, pulmonary hypertension, heart murmur,obesity, IBS, RLS, arthritis, ADHD, DJD, anemia, lactose intolerance; last seizure 21 years ago, kidney stones x2 History of Any Multi-Drug Resistant Organisms: None Reported Past Surgical History: Cholecystectomy, Hysterectomy Additional Past Surgical History / Comment(s): breast biopsy,esophageal surgery - 2002 Past Anesthesia/Blood Transfusion Reactions: No Reported Reaction Past Psychological History: Anxiety, Depression Smoking Status: Never smoker Past Alcohol Use History: None Reported Past Drug Use History: None Reported - Past Family History Mother History Unknown: Yes Family Medical History: Congestive Heart Failure (CHF), Myocardial Infarction ([place]) Additional Family Medical History / Comment(s): 77 Father History Unknown: Yes Family Medical History: COPD, Myocardial Infarction ([place]) Additional Family Medical History / Comment(s): at 56 Sister(s) History Unknown: Yes Family Medical History: Myocardial Infarction ([place]) Additional Family Medical History / Comment(s): at 56 Brother(s) Family Medical History: Cancer Additional Family Medical History / Comment(s): colon cancer Medications and Allergies Home Medications Medication Instructions Recorded Confirmed Type Loratadine [Claritin] 10 mg PO HS 06/09/15 04/19/20 History rOPINIRole HCL [Requip Xl] 4 mg PO HS 06/09/15 04/19/20 History Budesonide-Formot 160-4.5 Mcg 2 puff INHALATION RT-BID 03/17/16 04/19/20 History [Symbicort 160-4.5 Mcg Inhaler] Albuterol Sulfate [Proair Hfa] 1 - 2 puff INHALATION RT-Q6H PRN 08/10/18 04/19/20 History Ticagrelor [Brilinta] 90 mg PO BID #60 tab 08/12/18 04/19/20 Rx Aspirin 81 mg PO HS 04/19/20 04/19/20 History Atorvastatin [Lipitor] 10 mg PO MOFR 04/19/20 04/19/20 History Diltiazem Cd [Cardizem Cd] 300 mg PO HS 04/19/20 04/19/20 History Dulaglutide [Trulicity] 1.5 mg SQ MO 04/19/20 04/19/20 History EPINEPHrine (Auto Inject) [Epipen] 0.3 mg IM ONCE PRN 04/19/20 04/19/20 History Insulin Glargine,Hum.rec.anlog 40 unit SQ HS 04/19/20 04/19/20 History [Lantus Solostar] Losartan [Cozaar] 50 mg PO BID 04/19/20 04/19/20 History Miconazole Nitrate [Lotrimin AF 1 applic TOPICAL DAILY PRN 04/19/20 04/19/20 History Powder] Sennosides/Docusate Sodium [Senna 1 tab PO HS 04/19/20 04/19/20 History Plus 8.6-50 mg Tablet] metFORMIN HCL [Glucophage] 500 mg PO BID 04/19/20 04/19/20 History Allergies Allergy/AdvReac Type Severity Reaction Status Date / Time ammonia Allergy Unknown Verified 04/19/20 07:47 barium sulfate Allergy Unknown Verified 04/19/20 07:47 dulaglutide [From Trulicity] Allergy Dyspnea Verified 04/19/20 07:47 exenatide [From Byetta] Allergy Unknown Verified 04/19/20 07:47 feathers Allergy Unknown Verified 04/19/20 07:47 fexofenadine HCl Allergy Unknown Verified 04/19/20 07:47 [From Elena] hydrochlorothiazide Allergy Unknown Verified 04/19/20 07:47 influenza virus vaccine, Allergy Unknown Verified 04/19/20 07:47 specific isosorbide [From Imdur] Allergy Unknown Verified 04/19/20 07:47 meperidine HCl [From Demerol] Allergy Anaphylaxis Verified 04/19/20 07:47 nifedipine [From Procardia] Allergy Unknown Verified 04/19/20 07:47 nitroglycerin Allergy Unknown Verified 04/19/20 07:47 paroxetine [From Paxil] Allergy Unknown Verified 04/19/20 07:47 paroxetine HCl [From Paxil] Allergy Unknown Verified 04/19/20 07:47 sertraline HCl [From Zoloft] Allergy Unknown Verified 04/19/20 07:47 simvastatin [From Zocor] Allergy Unknown Verified 04/19/20 07:47 Ktqnafr-Gil-Pwb Reductase Allergy Unknown Verified 04/19/20 07:47 Inhibitor venom-honey bee Allergy Anaphylaxis Verified 04/19/20 07:47 [bee venom (honey bee)] zolpidem [From Ambien] Allergy Unknown Verified 04/19/20 07:47 zolpidem tartrate Allergy Unknown Verified 04/19/20 07:47 [From Ambien] lactose AdvReac Nausea & Verified 04/19/20 07:47 Vomiting & Diarrhea hay Allergy Unknown Uncoded 04/19/20 01:17 lysol Allergy Unknown Uncoded 04/19/20 01:17 Physical Exam Vitals: Vital Signs Temp Pulse Pulse Resp BP BP Pulse Ox 04/19/20 09:56 98 F 76 18 159/62 04/19/20 04:35 88 16 150/113 98 04/19/20 04:34 98.0 F 74 18 165/99 95 04/19/20 02:17 89 16 164/89 95 04/19/20 01:14 98.5 F 77 24 166/79 99 Intake and Output 04/18/20 04/19/20 04/19/20 22:59 06:59 14:59 Other: Voiding Method Toilet # Voids 1 Weight 113.398 kg PHYSICAL EXAMINATION: Patient is lying in the bed comfortably, no acute distress, awake alert and orie nted.Morbidly obese.. HEENT: Normocephalic. Neck is supple. Pupils reactive. Nostrils clear. Oral c avity is moist. Ears reveal no drainage. Neck reveals no JVD, carotid bruits, or thyromegaly. CHEST EXAMINATION: Trachea is central. Symmetrical expansion. Lung eaton clear to auscultation and percussion. CARDIAC: Normal S1, S2 with no gallops. No murmurs ABDOMEN: Soft. Bowel sounds present, Mild left lower quadrant tenderness. No guarding or rigidity.. No organomegaly. No abdominal bruits. Extremities: reveal no edema. No clubbing or cyanosis Neurologically awake, alert, oriented x3 with well-coordinated movements. No focal deficits noted Skin: No rash or skin lesions. Psychiatric: Coperative. Nonsuicidal Musculoskeletal: No joint swelling or deformity. Normal range of motion. Results CBC & Chem 7: 04/19/20 01:38 04/19/20 01:38 Labs: Abnormal Lab Results - Last 24 Hours (Table) 04/19/20 04/19/20 04/19/20 Range/Units 01:38 01:38 01:38 MCV 77.5 L (80.0-100.0) fL Sodium 135 L (137-145) mmol/L Glucose 188 H (74-99) mg/dL Urine Protein Trace H (Negative) Urine Glucose (UA) Trace H (Negative) Ur Leukocyte Esterase Large H (Negative) Urine WBC 27 H (0-5) /hpf Ur Squamous Epith Cells 8 H (0-4) /hpf Urine Mucus Rare H (None) /hpf Microbiology - Last 24 Hours (Table) 04/19/20 01:38 Urine Culture - Preliminary Urine,Clean Catch Thrombosis Risk Factor Assmnt - DVT/VTE Prophylaxis DVT/VTE Prophylaxis: Pharmacologic Prophylaxis ordered - Choose All That Apply Each Factor Represents 1 point: Obesity (BMI >25) Each Risk Factor Represents 2 Points: Age 61-74 years Thrombosis Risk Factor Assessment Total Risk Factor Score: 3 Thrombosis Risk Factor Assessment Level: Moderate Risk Assessment and Plan Assessment: Abdominal pain secondary to colitis and possible neoplastic constricting lesion in the lower aspect of descending colon versus stool impaction. Bowel obstruction secondary to above Possible urinary tract infection Morbid obesity with BMI 52.2 Diabetes type 2 insulin-dependent Hypertension Hyperlipidemia Hearing disorder/deafness Obstructive sleep apnea on CPAP History of seizure disorder History of CVA/TIA Anxiety/depression Asthma not in exacerbation Fatty infiltration of liver History of irritable bowel syndrome DVT prophylaxis with heparin subcu Plan: Patient will be continued IV hydration and antibiotics in the form of Levaquin and Flagyl. Patient will be continued home blood pressure medications and insulin regimen. Continue with insulin sliding scale. Nothing by mouth and general surgery was consulted. CT with rectal contrast and oral contrast at the same time was ordered. Further recommendations based on the clinical course. Continued pain management and stool softeners and laxatives.. Time with Patient: Greater than 30
[2020-04-20] MEDS: HEPARIN SODIUM,PORCINE 5,000 UNIT/ML 1 ML VIAL SQ SCH ×4 (00:38→23:59)
[2020-04-20] MEDS: INSULIN DETEMIR (LEVEMIR) 100 UNIT/ML SYR SQ SCH ×2 (00:38→21:01)
[2020-04-20] MEDS: metroNIDAZOLE-NS PMX 500 MG in SALINE 1 100ML.BAG IVPB SCH ×4 (03:12→21:06)
[2020-04-20] MEDS: LEVOFLOXACIN 750MG-D5W PMX 750 MG in DEXTROSE/WATER 1 150ML.BAG IVPB SCH (04:28)
[2020-04-20 06:27] LABS: Basophils % (A) 0 %; Eosinophils # (A) 0.2 k/uL (0-0.7); Eosinophils % (A) 3 %; HGB 12.1 gm/dL (11.4-16.0); Lymphocytes # (A) 2.2 k/uL (1.0-4.8); Lymphocytes % (A) 24 %; MCH 25.3 pg (25.0-35.0); MCHC 31.9 g/dL (31.0-37.0); MCV 79.3 fL (80.0-100.0); Mean Platelet Volume 6.9; Monocytes # (A) 0.4 k/uL (0-1.0); Monocytes % (A) 5 %; Neutrophils # (A) 6.2 k/uL (1.3-7.7); Neutrophils % (A) 67 %; Platelet Count 268 k/uL (150-450); RDW 15.2 % (11.5-15.5); WBC 9.2 k/uL (3.8-10.6)
[2020-04-20] MEDS: SODIUM CHLORIDE 0.9% 1,000 ML IV SCH ×2 (06:40→23:58)
[2020-04-20 07:37] LABS: Glucose,Whole Blood 127 mg/dL (75-99)
[2020-04-20] MEDS: INSULIN ASPART (NovoLOG) 100 UNIT/ML VIAL SQ SCH ×4 (08:18→21:00)
[2020-04-20] MEDS: MAGNESIUM HYDROXIDE 2,400 MG/10 ML CUP PO SCH (08:18)
[2020-04-20] MEDS: TICAGRELOR 90 MG TAB PO SCH ×2 (08:19→21:05)
[2020-04-20] MEDS: SYMBICORT 160-4.5 MCG INHALER INHALATION SCH ×2 (08:25→20:03)
[2020-04-20] MEDS: polyethylene glycoL 3350 17 GM POWD.PACK PO SCH (08:27)
[2020-04-20] MEDS ORDERED: MAGNESIUM CITRATE 296 ML BOTTLE PO ONE (08:35)
--- NOTE | 2020-04-20 08:44 | P.PN ---
Subjective Progress Note Date: 04/20/20 Principal diagnosis: Colonic obstruction Patient had some flatus overnight. No bowel movement with enemas or with the rectal contrast CAT scan. Films reviewed with Dr. august. CAT scan shows bolus of stool at the mid descending colon. This appears to be the site of obstructio n. There is no definite mass lesion or definite stricture identified on this study. Patient says her pain has improved. She was having intermittent crampy pain but even that is better now. Patient is afebrile. White blood cell count 9.2. Objective - Vital Signs Vital signs: Vital Signs Temp 97.7 F 04/20/20 08:00 Pulse 76 04/20/20 08:00 Resp 16 04/20/20 08:00 BP 150/71 04/20/20 08:00 Pulse Ox 90 L 04/20/20 08:00 Intake & Output 04/19/20 04/20/20 04/20/20 18:59 06:59 18:59 Other: Voiding Method Toilet # Voids 3 2 - Exam Abdomen: Soft, mild distention, mild left-sided tenderness - Labs CBC & Chem 7: 04/20/20 05:37 04/19/20 01:38 Labs: Abnormal Lab Results - Last 24 Hours (Table) 04/19/20 04/19/20 04/20/20 Range/Units 12:44 20:07 05:37 MCV 79.3 L (80.0-100.0) fL POC Glucose (mg/dL) 130 H 119 H (75-99) mg/dL 04/20/20 Range/Units 07:31 MCV (80.0-100.0) fL POC Glucose (mg/dL) 127 H (75-99) mg/dL Microbiology - Last 24 Hours (Table) 04/19/20 01:38 Urine Culture - Preliminary Urine,Clean Catch Assessment and Plan (1) Bowel obstruction Narrative/Plan: 59-year-old female with constipation and partial colonic obstruction. Etiology remains unclear despite CAT scan however no large mass lesion identified. We'll try small volume of magnesium citrate today. We'll also have nurse provide an additional enema today. Patient is encouraged to ambulate. We discussed that if no further bowel function appreciated after these efforts patient may require exploratory laparotomy with partial colonic resection and colostomy placement. She is agreeable if no improvement noted. Current Visit: Yes Status: Acute Code(s): K56.609 - UNSP INTESTNL OBST, UNSP TO PARTIAL VERSUS COMPLETE OBST SNOMED Code(s): 62186692
[2020-04-20 09:38] LABS: African American GFR (CKD) 92.2 (60.0-200.0); Anion Gap 9.7 mmol/L (4.00-12.00); BUN/Creat Ratio 12.5 Ratio (12.00-20.00); Carbon Dioxide 25.3 mmol/L (21.6-31.8); Non-African American GFR(CKD) 79.6 (60.0-200.0); Potassium 4.2 mmol/L (3.5-5.5)
[2020-04-20 11:38] LABS: Glucose,Whole Blood 133 mg/dL (75-99)
[2020-04-20 17:34] LABS: Glucose,Whole Blood 108 mg/dL (75-99)
[2020-04-20 20:30] LABS: Glucose,Whole Blood 104 mg/dL (75-99)
[2020-04-20] MEDS: DILTIAZEM CD 240 MG CAP.ER.24H PO SCH (21:21)
[2020-04-21] MEDS: metroNIDAZOLE-NS PMX 500 MG in SALINE 1 100ML.BAG IVPB SCH ×4 (03:49→20:36)
[2020-04-21] MEDS: LEVOFLOXACIN 750MG-D5W PMX 750 MG in DEXTROSE/WATER 1 150ML.BAG IVPB SCH (05:15)
[2020-04-21 06:21] LABS: Basophils % (A) 1 %; Eosinophils # (A) 0.2 k/uL (0-0.7); Eosinophils % (A) 2 %; HCT 38.8 % (34.0-46.0); HGB 12.6 gm/dL (11.4-16.0); Lymphocytes # (A) 1.9 k/uL (1.0-4.8); Lymphocytes % (A) 25 %; MCH 26.1 pg (25.0-35.0); MCHC 32.6 g/dL (31.0-37.0); Mean Platelet Volume 6.8; Monocytes # (A) 0.4 k/uL (0-1.0); Monocytes % (A) 5 %; Neutrophils # (A) 5.2 k/uL (1.3-7.7); Neutrophils % (A) 66 %; Platelet Count 252 k/uL (150-450); RBC 4.85 m/uL (3.80-5.40); RDW 15.2 % (11.5-15.5); WBC 7.9 k/uL (3.8-10.6)
[2020-04-21] MEDS: INSULIN ASPART (NovoLOG) 100 UNIT/ML VIAL SQ SCH ×4 (06:53→20:35)
[2020-04-21] MEDS: TICAGRELOR 90 MG TAB PO SCH (06:53)
[2020-04-21] MEDS: HEPARIN SODIUM,PORCINE 5,000 UNIT/ML 1 ML VIAL SQ SCH ×2 (06:54→16:33)
--- NOTE | 2020-04-21 06:54 | XR ---
EXAMINATION TYPE: XR abdomen 2V DATE OF EXAM: 04/21/2020 CLINICAL HISTORY: Colonic obstruction, pain. TECHNIQUE: Supine and upright views of the abdomen are obtained. COMPARISON: CT abdomen and pelvis 2 days ago. FINDINGS: Gas seen in nondistended stomach bubble. Contrast redemonstrated throughout slightly promin ent colonic loops. Some paucity of small bowel gas. No pneumoperitoneum. Cholecystectomy clips redemo nstrated. Visualized osseous structures are intact. Vascular calcification of epigastric region. Lung bases are clear. IMPRESSION: Overall nonspecific but favor nonobstructive bowel gas pattern remains present.
[2020-04-21] MEDS: SYMBICORT 160-4.5 MCG INHALER INHALATION SCH ×2 (07:12→18:52)
[2020-04-21 07:24] LABS: Glucose,Whole Blood 150 mg/dL (75-99)
[2020-04-21] MEDS: MAGNESIUM HYDROXIDE 2,400 MG/10 ML CUP PO SCH (07:58)
[2020-04-21] MEDS: SODIUM CHLORIDE 0.9% 1,000 ML IV SCH (08:22)
[2020-04-21] MEDS: polyethylene glycoL 3350 17 GM POWD.PACK PO SCH (09:30)
[2020-04-21 10:21] LABS: Albumin 4.3 g/dL (3.80-4.90); Albumin/Globulin Ratio 2.15 (1.60-3.17); Calcium 8.8 mg/dL (8.7-10.3); Potassium 4.5 mmol/L (3.5-5.5); Total Bilirubin 0.5 mg/dL (0.3-1.2); Total Protein 6.3 g/dL (6.2-8.2)
--- NOTE | 2020-04-21 11:04 | P.PN ---
Subjective Progress Note Date: 04/21/20 Principal diagnosis: Colonic obstruction Patient feels about the same today. Says she still has not passed any flatus or bowel movement despite enemas yesterday and further cathartics. Patient has intermittent crampy pain. She is afebrile. White blood cell count is normal. Today's x-ray reviewed with radiologist. Dictation did not suggest persistent obstruction however after films reviewed with Dr. august and compared to the recent CAT scan from yesterday he agrees the contrast seems to abruptly stop at the same location as seen on CAT scan in the mid to proximal descending colon. This was discussed with the patient. Objective - Vital Signs Vital signs: Vital Signs Temp 98 F 04/21/20 08:00 Pulse 76 04/21/20 08:00 Resp 16 04/21/20 08:00 BP 134/75 04/21/20 08:00 Pulse Ox 95 04/21/20 08:00 Intake & Output 04/20/20 04/21/20 04/21/20 18:59 06:59 18:59 Other: # Voids 3 1 - Exam Abdomen: Soft, distended, mild left-sided tenderness - Labs CBC & Chem 7: 04/21/20 05:47 04/21/20 05:47 Labs: Abnormal Lab Results - Last 24 Hours (Table) 04/20/20 04/20/20 04/20/20 Range/Units 11:34 17:23 20:28 BUN/Creatinine Ratio (12.00-20.00) Ratio Glucose (70-110) mg/dL POC Glucose (mg/dL) 133 H 108 H 104 H (75-99) mg/dL Alkaline Phosphatase (41-126) U/L 04/21/20 04/21/20 Range/Units 05:47 07:22 BUN/Creatinine Ratio 10.00 L (12.00-20.00) Ratio Glucose 148 H (70-110) mg/dL POC Glucose (mg/dL) 150 H (75-99) mg/dL Alkaline Phosphatase 141 H (41-126) U/L Microbiology - Last 24 Hours (Table) 04/19/20 01:38 Urine Culture - Final Urine,Clean Catch Assessment and Plan (1) Bowel obstruction Narrative/Plan: Patient with persistent obstruction on both x-rays and clinical history. At this point I do recommend exploratory laparotomy with possible need for partial colectomy and end colostomy. Risks of bleeding, infection, recurrent obstruction, ostomy complications, hernia, abscess, splenic injury, respiratory and cardiac complications reviewed. She understands and wishes to proceed. Current Visit: Yes Status: Acute Code(s): K56.609 - UNSP INTESTNL OBST, UNSP TO PARTIAL VERSUS COMPLETE OBST SNOMED Code(s): 89513135
[2020-04-21 13:40] LABS: Glucose,Whole Blood 122 mg/dL (75-99)
[2020-04-21] MEDS ORDERED: MIDAZOLAM 2 MG/2 ML VIAL IVP ONE (13:45)
[2020-04-21] MEDS ORDERED: fentaNYL (PF) 50 MCG/ML 2 ML AMP IVP ONE (13:45)
[2020-04-21] MEDS ORDERED: ONDANSETRON 4 MG/2 ML VIAL IVP ONE (13:45)
[2020-04-21] MEDS ORDERED: ePHEDrine SULFATE/0.9% NACL/PF 50 MG/5 ML SYRINGE IV ONE (14:02)
[2020-04-21] MEDS ORDERED: SUCCINYLCHOLINE CHLORIDE 100 MG/5 ML SYR IV ONE (14:02)
[2020-04-21] MEDS ORDERED: ROCURONIUM 10 MG/ML (10 ML VIAL) IV ONE (14:02)
[2020-04-21] MEDS ORDERED: NEOSTIGMINE 1 MG/ML 10 ML VIAL ONE (14:02)
[2020-04-21] MEDS ORDERED: GLYCOPYRROLATE 0.2 MG/ML 2 ML VIAL ONE (14:02)
[2020-04-21] MEDS ORDERED: diphenhydrAMINE 50 MG/ML 1 ML VIAL IVP PRN (14:02)
[2020-04-21] MEDS ORDERED: NALOXONE 0.4 MG/ML 1 ML VIAL IV PRN (14:02)
[2020-04-21] MEDS ORDERED: IV FLUID CONTINUATION 1,000 ML IV ONE (14:02)
[2020-04-21] MEDS ORDERED: MIDAZOLAM 2 MG/2 ML VIAL ONE (14:02)
[2020-04-21] MEDS ORDERED: PHENYLEPHRINE 10 MG/ML VIAL ONE (14:02)
[2020-04-21] MEDS ORDERED: fentaNYL (PF) 50 MCG/ML 2 ML AMP ONE (14:02)
[2020-04-21] MEDS ORDERED: PROPOFOL 10 MG/ML 20 ML VIAL IV ONE (14:02)
[2020-04-21] MEDS ORDERED: ROPIVACAINE 250 MG, HYDROMORPHONE (PF) 5 MG in SODIUM CHLORIDE 0.9% 200 ML EPIDURAL PRN (14:30)
[2020-04-21] MEDS ORDERED: LACTATED RINGERS 1,000 ML IV ONE (15:42)
[2020-04-21] MEDS ORDERED: METOCLOPRAMIDE 5 MG/ML 2 ML VIAL IVP PRN (16:18)
[2020-04-21 16:20] LABS: Glucose,Whole Blood 149 mg/dL (75-99)
--- NOTE | 2020-04-21 16:20 | P.OP ---
Date of Procedure: 04/21/20 Procedure(s) Performed: PREOPERATIVE DIAGNOSIS: Colonic obstruction POSTOPERATIVE DIAGNOSIS: Same secondary to descending colon constipation PROCEDURE: Partial colectomy with end colostomy, lysis of adhesions, mobilization splenic flexure SURGEON: Jie EBL: 50 mL ANESTHESIA: General COMPLICATIONS: None OPERATIVE PROCEDURE: Patient place in the operative table in the supine position. The patient was placed under general anesthesia. The abdomen was prepped and draped in usual sterile fashion. A vertical incision was made encompassing extending from the epigastric region to the supraumbilical location. The fascia was divided as well. No free fluid in the abdomen was seen. The patient had extensive adhesions between the omentum and the abdominal wall in the infraumbilical location that limited our visualization of the abdomen. Careful dissection of the adhesions took place using electrocautery and sharp dissection. There were some adhesions between the bowel loops and the abdominal wall inferiorly as well. Once we had adequate space the Bookwalter retractor was utilized. The transverse colon was distended. The descending colon was followed to a site in the mid descending colon where there was a very hard piece of stool present. This was causing some degree of ischemic change to the colon in that location however no perforation was identified. As I tried to milk this distally we met some resistance and was decided at this time to proceed with partial colectomy. The bowel was divided distal to the obstructed segment using a linear 75 stapler. The splenic flexure was fully mobilized using both electrocautery and blunt dissection and the LigaSure device. The mesentery of the descending colon and splenic flexure region was divided using the LigaSure device. No bleeding was seen along the mesenteric dissection. Once I had enough length on the colon the abdomen was irrigated with saline. No bleeding was seen at that time. A circular incision was made in the left upper abdomen. Dissection through the subcutaneous fat and fascia took place using electrocautery. I bluntly entered the perineal cavity and this was further bluntly opened. The bowel was brought out through this defect in the left midabdomen. The midline fascia was then reapproximated using 3 separate double- stranded #1 PDS sutures. The subcutaneous tissues were irrigated. The subcutaneous tissues were closed using 3-0 Vicryl sutures. The skin was then closed using kusum. The ostomy was then addressed. The bowel was divided just above the level of the skin using electrocautery and the LigaSure device. Bleeding was seen from the cut edge. The ostomy was then matured in a galena fashion using interrupted 3-0 Vicryl sutures. An ostomy appliance was then applied. Sterile dressings were then applied to the midline incision. DISPOSITION: Stable to recovery room. I called the patient's sister Maria A by phone. No answer was obtained. I left a message regarding the surgical procedure with Maria A.
[2020-04-21] MEDS: ONDANSETRON 4 MG/2 ML VIAL IVP PRN (16:35)
[2020-04-21] MEDS ORDERED: PROMETHAZINE INJ 25 MG/ML 1 ML VIAL IVPB ONE (16:45)
[2020-04-21 20:30] LABS: Glucose,Whole Blood 190 mg/dL (75-99)
[2020-04-21] MEDS: FAMOTIDINE 20 MG/2 ML VIAL IV SCH (20:35)
[2020-04-21] MEDS: INSULIN DETEMIR (LEVEMIR) 100 UNIT/ML SYR SQ SCH (20:36)
[2020-04-21] MEDS: DILTIAZEM CD 240 MG CAP.ER.24H PO SCH (20:36)
--- NOTE | 2020-04-21 23:05 | P.PN ---
Subjective Progress Note Date: 04/20/20 Principal diagnosis: Abdominal pain secondary to constricting lesion in the lower aspect of descending colon versus stool impaction Patient is a 59-year-old female with a known history of CVA/TIA, diabetes type 2 insulin-dependent, hypertension, hyperlipidemia, seizure disorder, obstructive sleep apnea on CPAP, hypothyroidism and anxiety/depression presents to ER with complaints of abdominal pain and left lower quadrant pain mainly. Patient has been having symptoms for the past 3 days which are worsening. Does have nausea and on and off constipation. Last bowel movement was 2 days ago which was hard stool as per patient. Denied any hematemesis or melena. No hematochezia. Denied any fever or chills. No cough or sputum production. No dysuria or hematuria. Patient had prior hysterectomy cholecystectomy in the past. Denied any recent illnesses. No sick contacts or travel. Laboratory data showed sodium 135, potassium 4.4, chloride 103, BUN 15 and creatinine 0.73 Urinalysis showed large leukocyte esterase and 27 WBCs and 80 squamous of the cells WBC 9.3 and hemoglobin 12.8 and MCV 77.5 and platelets 334 Patient has been afebrile CT of the abdomen pelvis showed abrupt transition from dilated to nondilated colon in the lower aspect of the descending colon. This may represent a short segment of colitis however neoplastic constricting lesion should also be considered. 04/20/2019 Patient is currently resting in the bed comfortably. No complaints of chest pain or shortness of breath. Abdominal pain did improve. Otherwise repeat CT with rectal contrast showed similar obstructing lesion. Patient is being continued on stool softeners and laxatives. General surgery is on board. Possible surgical intervention without improvement on conservative therapy. Current medications reviewed. Objective - Vital Signs Vital signs: Vital Signs Temp 98.1 F 04/20/20 14:00 Pulse 72 04/20/20 14:00 Resp 16 04/20/20 14:00 BP 120/48 04/20/20 14:00 Pulse Ox 93 L 04/20/20 14:00 Intake & Output 04/20/20 04/20/20 04/21/20 06:59 18:59 06:59 Other: Voiding Method Toilet # Voids 2 3 - Exam PHYSICAL EXAMINATION: Patient is lying in the bed comfortably, no acute distress, awake alert and oriented.Morbidly obese.. HEENT: Normocephalic. Neck is supple. Pupils reactive. Nostrils clear. Oral cavity is moist. Ears reveal no drainage. Neck reveals no JVD, carotid bruits, or thyromegaly. CHEST EXAMINATION: Trachea is central. Symmetrical expansion. Lung eaton clear to auscultation and percussion. CARDIAC: Normal S1, S2 with no gallops. No murmurs ABDOMEN: Soft. Bowel sounds present, Mild left lower quadrant tenderness. No guarding or rigidity.. No organomegaly. No abdominal bruits. Extremities: reveal no edema. No clubbing or cyanosis Neurologically awake, alert, oriented x3 with well-coordinated movements. No focal deficits noted Skin: No rash or skin lesions. Psychiatric: Coperative. Nonsuicidal Musculoskeletal: No joint swelling or deformity. Normal range of motion. - Labs CBC & Chem 7: 04/21/20 05:47 04/21/20 05:47 Labs: Abnormal Lab Results - Last 24 Hours (Table) 04/19/20 04/20/20 04/20/20 Range/Units 20:07 05:37 07:31 MCV 79.3 L (80.0-100.0) fL POC Glucose (mg/dL) 119 H 127 H (75-99) mg/dL 04/20/20 04/20/20 Range/Units 11:34 17:23 MCV (80.0-100.0) fL POC Glucose (mg/dL) 133 H 108 H (75-99) mg/dL Microbiology - Last 24 Hours (Table) 04/19/20 01:38 Urine Culture - Final Urine,Clean Catch Assessment and Plan Assessment: Abdominal pain secondary to colitis and possible neoplastic constricting lesion in the lower aspect of descending colon versus stool impaction. Bowel obstruction secondary to above Possible urinary tract infection Morbid obesity with BMI 52.2 Diabetes type 2 insulin-dependent Hypertension Hyperlipidemia Hearing disorder/deafness Obstructive sleep apnea on CPAP History of seizure disorder History of CVA/TIA Anxiety/depression Asthma not in exacerbation Fatty infiltration of liver History of irritable bowel syndrome DVT prophylaxis with heparin subcu Plan: Patient will be continued IV hydration and antibiotics in the form of Levaquin and Flagyl. Patient will be continued home blood pressure medications and insulin regimen. Continue with insulin sliding scale. Nothing by mouth and general surgery was consulted. CT with rectal contrast and oral contrast at the same time was ordered. Further recommendations based on the clinical course. Continued pain management and stool softeners and laxatives.. Time with Patient: Greater than 30
--- NOTE | 2020-04-21 23:09 | P.PN ---
Subjective Progress Note Date: 04/21/20 Principal diagnosis: Abdominal pain secondary to constricting lesion in the lower aspect of descending colon versus stool impaction Patient is a 59-year-old female with a known history of CVA/TIA, diabetes type 2 insulin-dependent, hypertension, hyperlipidemia, seizure disorder, obstructive sleep apnea on CPAP, hypothyroidism and anxiety/depression presents to ER with complaints of abdominal pain and left lower quadrant pain mainly. Patient has been having symptoms for the past 3 days which are worsening. Does have nausea and on and off constipation. Last bowel movement was 2 days ago which was hard stool as per patient. Denied any hematemesis or melena. No hematochezia. Denied any fever or chills. No cough or sputum production. No dysuria or hematuria. Patient had prior hysterectomy cholecystectomy in the past. Denied any recent illnesses. No sick contacts or travel. Laboratory data showed sodium 135, potassium 4.4, chloride 103, BUN 15 and creatinine 0.73 Urinalysis showed large leukocyte esterase and 27 WBCs and 80 squamous of the cells WBC 9.3 and hemoglobin 12.8 and MCV 77.5 and platelets 334 Patient has been afebrile CT of the abdomen pelvis showed abrupt transition from dilated to nondilated colon in the lower aspect of the descending colon. This may represent a short segment of colitis however neoplastic constricting lesion should also be considered. 04/20/2019 Patient is currently resting in the bed comfortably. No complaints of chest pain or shortness of breath. Abdominal pain did improve. Otherwise repeat CT with rectal contrast showed similar obstructing lesion. Patient is being continued on stool softeners and laxatives. General surgery is on board. Possible surgical intervention without improvement on conservative therapy. 04/21/2019 Patient is currently resting in the bed comfortable. No complaints of chest pain. Abdominal discomfort is still present. Patient did not have any bowel movement with conservative therapy. General surgery is planning for partial colectomy and colostomy today. Otherwise patient is being continued on IV hydration and antibiotics and insulin sliding scale. Patient has been afebrile. Laboratory test showed WBC 7.9 and hemoglobin 12.6 and platelets 252 Sodium 138 potassium 4.5 chloride 103, BUN 9 and creatinine 0.9 Current medications reviewed. Objective - Vital Signs Vital signs: Vital Signs Temp 97.9 F 04/21/20 17:30 Pulse 72 04/21/20 17:30 Resp 16 04/21/20 17:30 BP 123/71 04/21/20 17:30 Pulse Ox 90 L 04/21/20 17:30 Intake & Output 04/21/20 04/21/20 04/22/20 06:59 18:59 06:59 Intake Total 1411 Output Total 300 Balance 1111 Weight 113.398 kg Intake: IV 1411 Output: Urine 250 Estimated Blood Loss 50 Other: # Voids 1 - Exam PHYSICAL EXAMINATION: Patient is lying in the bed comfortably, no acute distress, awake alert and oriented.Morbidly obese.. HEENT: Normocephalic. Neck is supple. Pupils reactive. Nostrils clear. Oral cavity is moist. Ears reveal no drainage. Neck reveals no JVD, carotid bruits, or thyromegaly. CHEST EXAMINATION: Trachea is central. Symmetrical expansion. Lung eaton clear to auscultation and percussion. CARDIAC: Normal S1, S2 with no gallops. No murmurs ABDOMEN: Soft. Bowel sounds present, Mild left lower quadrant tenderness. No guarding or rigidity.. No organomegaly. No abdominal bruits. Extremities: reveal no edema. No clubbing or cyanosis Neurologically awake, alert, oriented x3 with well-coordinated movements. No focal deficits noted Skin: No rash or skin lesions. Psychiatric: Coperative. Nonsuicidal Musculoskeletal: No joint swelling or deformity. Normal range of motion. - Labs CBC & Chem 7: 04/21/20 05:47 04/21/20 05:47 Labs: Abnormal Lab Results - Last 24 Hours (Table) 04/20/20 04/21/20 04/21/20 Range/Units 20:28 05:47 07:22 BUN/Creatinine Ratio 10.00 L (12.00-20.00) Ratio Glucose 148 H (70-110) mg/dL POC Glucose (mg/dL) 104 H 150 H (75-99) mg/dL Alkaline Phosphatase 141 H (41-126) U/L 04/21/20 04/21/20 Range/Units 13:38 16:19 BUN/Creatinine Ratio (12.00-20.00) Ratio Glucose (70-110) mg/dL POC Glucose (mg/dL) 122 H 149 H (75-99) mg/dL Alkaline Phosphatase (41-126) U/L Assessment and Plan Assessment: Abdominal pain secondary to constricting lesion in the lower aspect of descending colon versus stool impaction. s/p Colectomy and Colostomy. POD 0 Bowel obstruction secondary to above Possible urinary tract infection. cx showed normal farhan. Morbid obesity with BMI 52.2 Diabetes type 2 insulin-dependent Hypertension Hyperlipidemia Hearing disorder/deafness Obstructive sleep apnea on CPAP History of seizure disorder History of CVA/TIA Anxiety/depression Asthma not in exacerbation Fatty infiltration of liver History of irritable bowel syndrome DVT prophylaxis with heparin subcu Plan: Patient will be continued IV hydration and antibiotics in the form of Levaquin and Flagyl. s/p Colectomy. Patient will be continued home blood pressure medications and insulin regimen. Continue with insulin sliding scale. Further recommendations based on the clinical course. Continued pain management and stool softeners and laxatives.. Time with Patient: Greater than 30
[2020-04-22] MEDS: SODIUM CHLORIDE 0.9% 1,000 ML IV SCH ×5 (02:19→23:27)
[2020-04-22] MEDS ORDERED: SODIUM CHLORIDE 0.9% 500 ML 500 ML IV ONE (03:30)
[2020-04-22] MEDS: metroNIDAZOLE-NS PMX 500 MG in SALINE 1 100ML.BAG IVPB SCH ×4 (03:31→20:45)
[2020-04-22] MEDS: LEVOFLOXACIN 750MG-D5W PMX 750 MG in DEXTROSE/WATER 1 150ML.BAG IVPB SCH (04:42)
[2020-04-22 06:04] LABS: Glucose,Whole Blood 227 mg/dL (75-99)
[2020-04-22 06:16] LABS: Basophils # (A) 0.1 k/uL (0-0.2); Basophils % (A) 1 %; Eosinophils % (A) 0 %; HCT 36.4 % (34.0-46.0); HGB 11.6 gm/dL (11.4-16.0); Hypochromasia Slight; Lymphocytes # (A) 1.3 k/uL (1.0-4.8); Lymphocytes % (A) 9 %; MCH 26.1 pg (25.0-35.0); MCHC 31.9 g/dL (31.0-37.0); MCV 81.9 fL (80.0-100.0); Mean Platelet Volume 6.9; Monocytes # (A) 0.5 k/uL (0-1.0); Monocytes % (A) 4 %; Neutrophils # (A) 11.5 k/uL (1.3-7.7); Neutrophils % (A) 85 %; Platelet Count 299 k/uL (150-450); RBC 4.44 m/uL (3.80-5.40); RDW 15.6 % (11.5-15.5); WBC 13.5 k/uL (3.8-10.6)
--- NOTE | 2020-04-22 06:38 | P.PN ---
Progress Note - Text Progress Note Date: 04/22/20 Patient seen/examined. Resting comfortably, POD#1, Epidural Day #2. Epidural infusion running without incident at 6cc/hr. Good analgesia noted with VAS ranging from 1-4 depending upon activity. Minimal side effects noted. Insertion site looks ok, without signs of bleeding or infection. Will continue current care and follow for now.
--- NOTE | 2020-04-22 06:41 | P.ANPRN ---
Procedure Note - Anesthesia - Epidural/Spinal Epidural Continuous Date of Procedure: 04/21/20 Procedure Start Time: 13:42 Procedure Stop Time: 13:56 Location of Patient: PreOp Indication: Analgesia, Requested by Surgeon Sedation Type: Sedate with meaningful contact maintained Preparation: Sterile Prep Number of Attempts: 1 Position: Sitting Catheter Depth at Skin (cm): 16 Catheter: Indwelling Needle Guage: 18 Injectate: Test Dose Lidocaine1.5% w/1:200,000 epi Blood Aspirated: No Pain Paresthesia on Injection Noted: No Events: Uneventful and Well Tolerated (Aseptic, atraumatic insertion technique. Performed by Dr. Garcia Bedolla DO)
--- NOTE | 2020-04-22 06:42 | P.EN ---
A team note Activated at 6:05 am. Arrived on the scene shortly after. Reviewed the chart and discussed case with RN at bedside. The patient is a POD # 1 from partial colectomy with end colostomy where she had an epidural placed. She was noted to be lethargic. Patient examined at the bedside. Vital signs BP 100/57, P 95, SpO2 94 on RA, RR 20. Female in NAD. Cardiovascular examination with s1s2 audible with no obvious murmurs. Lung examination CTABL. Abdomen post-operative with large mid-line incision with overlying dressing and colostomy, with no tenderness on palpation. Neuro examination showing a lethargic patient, easy to arouse, oriented x 3, answering all questions appropriately, CN II-XII intact with no focal deficits noted, moving all extremities. Patient notes that she feels "tired". Denying weakness or visual disturbances. Reports mild headache, unchanged over the past 2-3 days. Assessment/Plan Lethargy suspected secondary to oversedation w/ epidural -Discontinued by the RN -Anesthesiology and Primary team notified by the RN -Recommend refraining from further use of epidural anesthesia -Neuro-checks -Consider Naloxone if no improvement
[2020-04-22 07:19] LABS: Glucose,Whole Blood 222 mg/dL (75-99)
[2020-04-22] MEDS: FAMOTIDINE 20 MG/2 ML VIAL IV SCH (08:28)
[2020-04-22] MEDS: INSULIN ASPART (NovoLOG) 100 UNIT/ML VIAL SQ SCH ×4 (08:28→20:44)
[2020-04-22] MEDS: HEPARIN SODIUM,PORCINE 5,000 UNIT/ML 1 ML VIAL SQ SCH ×4 (08:29→23:25)
[2020-04-22] MEDS: polyethylene glycoL 3350 17 GM POWD.PACK PO SCH (08:30)
[2020-04-22] MEDS: MAGNESIUM HYDROXIDE 2,400 MG/10 ML CUP PO SCH (08:30)
[2020-04-22] MEDS: ONDANSETRON 4 MG/2 ML VIAL IVP PRN (08:34)
[2020-04-22] MEDS: SYMBICORT 160-4.5 MCG INHALER INHALATION SCH ×2 (08:48→20:05)
[2020-04-22 10:07] LABS: African American GFR (CKD) 32.4 (60.0-200.0); Anion Gap 11.8 mmol/L (4.00-12.00); BUN/Creat Ratio 7.37 Ratio (12.00-20.00); Calcium 7.9 mg/dL (8.7-10.3); Carbon Dioxide 18.2 mmol/L (21.6-31.8); Potassium 4.7 mmol/L (3.5-5.5)
[2020-04-22 11:43] LABS: Glucose,Whole Blood 194 mg/dL (75-99)
[2020-04-22] MEDS ORDERED: ACETAMINOPHEN TAB 325 MG TAB PO PRN (12:11)
--- NOTE | 2020-04-22 12:16 | P.PN ---
Subjective Progress Note Date: 04/22/20 CHIEF COMPLAINT: Bowel obstruction HISTORY OF PRESENT ILLNESS: Patient is postop day #1 status post Partial colectomy with end colostomy, lysis of adhesions, mobilization splenic flexure colonic obstruction secondary to descending colon constipation. Patient denies any abdominal pain. She was very lethargic and hypotensive early this morning and an "Ateam" was called. It was felt that her symptoms were due to being over sedated. The epidural was discontinued. Patient's blood pressure is showing improvement. It is now 96/82. She is not requiring pain medication. White count is up to 13.5. She is asking to be restarted on nebulizer treatments. Medicine has resume nebulizer treatments. Patient denies any flatus or stool in her colostomy. She is currently on a clear liquid diet with poor oral intake. PHYSICAL EXAM: VITAL SIGNS: Reviewed. GENERAL: Well-developed in no acute distress. HEENT: No sclera icterus. Extraocular movements grossly intact. Moist buccal mucosa. Head is atraumatic, normocephalic. ABDOMEN: Soft. Mildly distended. Dressing has a few small areas of saturation of blood. Colostomy minimal bloody drainage. NEUROLOGIC: Alert and oriented. Cranial nerves II through XII grossly intact. ASSESSMENT: 1. Colonic obstruction secondary to descending colon constipation status post Partial colectomy with end colostomy, lysis of adhesions, mobilization splenic flexure colonic obstruction PLAN: -Agree with discontinuing the epidural -We'll add Tylenol as needed for pain -Continue antibiotics -Continue clear liquid diet -Encouraged patient to use incentive spirometer -DVT prophylaxis subcu heparin and GI prophylaxis Pepcid Physician Glove Boarder note has been reviewed by physician. Signing provider agrees with the documented findings, assessment, and plan of care. Objective - Vital Signs Vital signs: Vital Signs Temp 98.8 F 04/22/20 07:35 Pulse 70 04/22/20 11:19 Resp 18 04/22/20 11:19 BP 110/70 04/22/20 11:19 Pulse Ox 93 L 04/22/20 11:19 Intake & Output 04/21/20 04/22/20 04/22/20 18:59 06:59 18:59 Intake Total 1411 1.533 Output Total 300 Balance 1111 1.533 Weight 113.398 kg Intake: IV 1411 Intake, IV Titration 1.533 Amount Ropivacaine 250 mg 1.533 Hydromorphone (Pf) 5 mg In Sodium Chloride 0.9% 200 ml @ Per Protocol EPIDURAL .Q0M PRN Rx#: [id number] Output: Urine 250 Estimated Blood Loss 50 - Labs CBC & Chem 7: 04/22/20 05:53 04/22/20 05:53 Labs: Abnormal Lab Results - Last 24 Hours (Table) 04/21/20 04/21/20 04/21/20 Range/Units 13:38 16:19 20:27 WBC (3.8-10.6) k/uL RDW (11.5-15.5) % Neutrophils # (1.3-7.7) k/uL Sodium (135-145) mmol/L Carbon Dioxide (21.6-31.8) mmol/L Creatinine (0.6-1.5) mg/dL Est GFR (CKD-EPI)AfAm (60.0-200.0) Est GFR (CKD-EPI)NonAf (60.0-200.0) BUN/Creatinine Ratio (12.00-20.00) Ratio Glucose (70-110) mg/dL POC Glucose (mg/dL) 122 H 149 H 190 H (75-99) mg/dL Calcium (8.7-10.3) mg/dL 04/22/20 04/22/20 04/22/20 Range/Units 05:53 05:53 06:02 WBC 13.5 H (3.8-10.6) k/uL RDW 15.6 H (11.5-15.5) % Neutrophils # 11.5 H (1.3-7.7) k/uL Sodium 134 L (135-145) mmol/L Carbon Dioxide 18.2 L (21.6-31.8) mmol/L Creatinine 1.9 H (0.6-1.5) mg/dL Est GFR (CKD-EPI)AfAm 32.4 L (60.0-200.0) Est GFR (CKD-EPI)NonAf 28.0 L (60.0-200.0) BUN/Creatinine Ratio 7.37 L (12.00-20.00) Ratio Glucose 223 H (70-110) mg/dL POC Glucose (mg/dL) 227 H (75-99) mg/dL Calcium 7.9 L (8.7-10.3) mg/dL 04/22/20 04/22/20 Range/Units 07:07 11:41 WBC (3.8-10.6) k/uL RDW (11.5-15.5) % Neutrophils # (1.3-7.7) k/uL Sodium (135-145) mmol/L Carbon Dioxide (21.6-31.8) mmol/L Creatinine (0.6-1.5) mg/dL Est GFR (CKD-EPI)AfAm (60.0-200.0) Est GFR (CKD-EPI)NonAf (60.0-200.0) BUN/Creatinine Ratio (12.00-20.00) Ratio Glucose (70-110) mg/dL POC Glucose (mg/dL) 222 H 194 H (75-99) mg/dL Calcium (8.7-10.3) mg/dL
[2020-04-22] MEDS: ALBUTEROL NEBULIZED 2.5 MG/3 ML INHALATION PRN ×3 (12:27→20:05)
--- NOTE | 2020-04-22 12:33 | XR ---
EXAMINATION TYPE: XR chest 1V portable DATE OF EXAM: 04/22/2020 COMPARISON: 08/10/2018 HISTORY: Shortness of breath TECHNIQUE: Single frontal view of the chest is obtained. FINDINGS: Postsurgical change right shoulder arthropathy left shoulder. Heart is enlarged and there is bibasilar infiltrate and small effusion. Suggestion of kusum are overlying the left upper quadra nt. No pneumothorax. Interstitium stable. IMPRESSION: 1. Cardiomegaly with increasing bilateral lower lobe infiltrate.
--- NOTE | 2020-04-22 14:24 | P.PN ---
Subjective Progress Note Date: 04/22/20 Abdominal pain secondary to constricting lesion in the lower aspect of descending colon versus stool impaction Patient is a 59-year-old female with a known history of CVA/TIA, diabetes type 2 insulin-dependent, hypertension, hyperlipidemia, seizure disorder, obstructive sleep apnea on CPAP, hypothyroidism and anxiety/depression presents to ER with complaints of abdominal pain and left lower quadrant pain mainly. Patient has been having symptoms for the past 3 days which are worsening. Does have nausea and on and off constipation. Last bowel movement was 2 days ago which was hard stool as per patient. Denied any hematemesis or melena. No hematochezia. Denied any fever or chills. No cough or sputum production. No dysuria or hematuria. Patient had prior hysterectomy cholecystectomy in the past. Denied any recent illnesses. No sick contacts or travel. Laboratory data showed sodium 135, potassium 4.4, chloride 103, BUN 15 and creatinine 0.73 Urinalysis showed large leukocyte esterase and 27 WBCs and 80 squamous of the cells WBC 9.3 and hemoglobin 12.8 and MCV 77.5 and platelets 334 Patient has been afebrile CT of the abdomen pelvis showed abrupt transition from dilated to nondilated colon in the lower aspect of the descending colon. This may represent a short segment of colitis however neoplastic constricting lesion should also be considered. 04/20/2020 Patient is currently resting in the bed comfortably. No complaints of chest pain or shortness of breath. Abdominal pain did improve. Otherwise repeat CT with rectal contrast showed similar obstructing lesion. Patient is being continued on stool softeners and laxatives. General surgery is on board. Possible surgical intervention without improvement on conservative therapy. 04/21/2020 Patient is currently resting in the bed comfortable. No complaints of chest pain. Abdominal discomfort is still present. Patient did not have any bowel movement with conservative therapy. General surgery is planning for partial colectomy and colostomy today. Otherwise patient is being continued on IV hydration and antibiotics and insulin sliding scale. Patient has been afebrile. Laboratory test showed WBC 7.9 and hemoglobin 12.6 and platelets 252 Sodium 138 potassium 4.5 chloride 103, BUN 9 and creatinine 0.9 04/22/2020 Patient is seen and evaluated in follow-up and apparently had an A team called on her this morning for decreased responsiveness. Patient was on epidural pain pump which was put on hold and will need to discuss with anesthesiology for epidural removal as patient is on Brilinta. Patient also states she was feeling short of breath and requesting a breathing treatment. Patient does use albuterol in the outpatient setting. She is currently on 4 L of oxygen at 93%. Will get a chest x-ray. Discussed with the patient about using incentive spirometer at least 10 times every hour while awake. To continue with bronchodilators. No stool output noted in the ostomy at this time. Patient denies passing gas. No reports of nausea or vomiting noted and patient is maintained on clear liquids. Surgery following. Abdominal discomfort slightly improved although slightly tender with palpation at the surgical site. White blood count is 13.5, sodium is 134, current creatinine is 1.9 and will continue with IV hydration and repeat labs. Patient is maintained on antibiotics in the form of Levaquin and Flagyl and will continue at this time. Chest x-ray shows cardiomegaly with increasing bilateral lower lobe infiltrate. Current medications reviewed. Objective - Vital Signs Vital signs: Vital Signs Temp 98.8 F 04/22/20 07:35 Pulse 70 04/22/20 12:39 Resp 18 04/22/20 11:19 BP 110/70 04/22/20 11:19 Pulse Ox 93 L 04/22/20 11:19 Intake & Output 04/21/20 04/22/20 04/22/20 18:59 06:59 18:59 Intake Total 1411 1.533 Output Total 300 Balance 1111 1.533 Weight 113.398 kg Intake: IV 1411 Intake, IV Titration 1.533 Amount Ropivacaine 250 mg 1.533 Hydromorphone (Pf) 5 mg In Sodium Chloride 0.9% 200 ml @ Per Protocol EPIDURAL .Q0M PRN Rx#: [id number] Output: Urine 250 Estimated Blood Loss 50 - Exam Patient is sitting up in the bed, no acute distress, awake alert and oriented.Morbidly obese.. HEENT: Normocephalic. Neck is supple. Pupils reactive. Nostrils clear. Oral cavity is moist. Ears reveal no drainage. Neck reveals no JVD, carotid bruits, or thyromegaly. CHEST EXAMINATION: Trachea is central. Symmetrical expansion. Diminished breath sounds with no wheezing or rhonchi noted CARDIAC: Normal S1, S2 with no gallops. No murmurs ABDOMEN: Soft. Bowel sounds present, Mild left lower quadrant tenderness. No guarding or rigidity.. No organomegaly. No abdominal bruits. Ostomy noted with a scant amount of sanguinous drainage and no stool or gas noted Extremities: reveal no edema. No clubbing or cyanosis Neurologically awake, alert, oriented x3 with well-coordinated movements. No focal deficits noted Skin: No rash or skin lesions. Psychiatric: Cooperative. Non-suicidal Musculoskeletal: No joint swelling or deformity. Normal range of motion. - Labs CBC & Chem 7: 04/22/20 05:53 04/22/20 05:53 Labs: Abnormal Lab Results - Last 24 Hours (Table) 04/21/20 04/21/20 04/21/20 Range/Units 13:38 16:19 20:27 WBC (3.8-10.6) k/uL RDW (11.5-15.5) % Neutrophils # (1.3-7.7) k/uL Sodium (135-145) mmol/L Carbon Dioxide (21.6-31.8) mmol/L Creatinine (0.6-1.5) mg/dL Est GFR (CKD-EPI)AfAm (60.0-200.0) Est GFR (CKD-EPI)NonAf (60.0-200.0) BUN/Creatinine Ratio (12.00-20.00) Ratio Glucose (70-110) mg/dL POC Glucose (mg/dL) 122 H 149 H 190 H (75-99) mg/dL Calcium (8.7-10.3) mg/dL 04/22/20 04/22/20 04/22/20 Range/Units 05:53 05:53 06:02 WBC 13.5 H (3.8-10.6) k/uL RDW 15.6 H (11.5-15.5) % Neutrophils # 11.5 H (1.3-7.7) k/uL Sodium 134 L (135-145) mmol/L Carbon Dioxide 18.2 L (21.6-31.8) mmol/L Creatinine 1.9 H (0.6-1.5) mg/dL Est GFR (CKD-EPI)AfAm 32.4 L (60.0-200.0) Est GFR (CKD-EPI)NonAf 28.0 L (60.0-200.0) BUN/Creatinine Ratio 7.37 L (12.00-20.00) Ratio Glucose 223 H (70-110) mg/dL POC Glucose (mg/dL) 227 H (75-99) mg/dL Calcium 7.9 L (8.7-10.3) mg/dL 04/22/20 04/22/20 Range/Units 07:07 11:41 WBC (3.8-10.6) k/uL RDW (11.5-15.5) % Neutrophils # (1.3-7.7) k/uL Sodium (135-145) mmol/L Carbon Dioxide (21.6-31.8) mmol/L Creatinine (0.6-1.5) mg/dL Est GFR (CKD-EPI)AfAm (60.0-200.0) Est GFR (CKD-EPI)NonAf (60.0-200.0) BUN/Creatinine Ratio (12.00-20.00) Ratio Glucose (70-110) mg/dL POC Glucose (mg/dL) 222 H 194 H (75-99) mg/dL Calcium (8.7-10.3) mg/dL Assessment and Plan Assessment: Abdominal pain secondary to constricting lesion in the lower aspect of descending colon versus stool impaction. s/p Colectomy and Colostomy. POD 1 Bowel obstruction secondary to above Possible urinary tract infection. cx showed normal farhan. Morbid obesity with BMI 52.2 Diabetes type 2 insulin-dependent Hypertension Hyperlipidemia Hearing disorder/deafness Obstructive sleep apnea on CPAP History of seizure disorder History of CVA/TIA Anxiety/depression Asthma not in exacerbation Fatty infiltration of liver History of irritable bowel syndrome DVT prophylaxis with heparin subcu Plan: Patient will be continued IV hydration and antibiotics in the form of Levaquin and Flagyl. s/p Colectomy. Home medications resumed and patient will continue on albuterol breathing treatments. Patient instructed to continue with incentive spirometer at least 10 times every hour while awake. Epidural pain pump has been placed on hold and anesthesia to remove. Creatinine is 1.9 and will continue gentle IV hydration and repeat a.m. labs. Chest x-ray shows increasing bilateral lower lobe infiltrate and patient is maintained on Levaquin along with Flagyl. Further recommendations based on the clinical course.
[2020-04-22 16:39] LABS: Glucose,Whole Blood 196 mg/dL (75-99)
[2020-04-22 20:22] LABS: Glucose,Whole Blood 166 mg/dL (75-99)
[2020-04-22] MEDS: INSULIN DETEMIR (LEVEMIR) 100 UNIT/ML SYR SQ SCH (20:44)
[2020-04-22] MEDS: DILTIAZEM CD 240 MG CAP.ER.24H PO SCH (20:44)
[2020-04-23] MEDS: metroNIDAZOLE-NS PMX 500 MG in SALINE 1 100ML.BAG IVPB SCH ×4 (03:47→20:01)
[2020-04-23 07:01] LABS: Glucose,Whole Blood 154 mg/dL (75-99)
[2020-04-23 07:15] LABS: Anisocytosis Slight; Basophils % (A) 0 %; Eosinophils # (A) 0.2 k/uL (0-0.7); Eosinophils % (A) 2 %; HCT 33.8 % (34.0-46.0); HGB 10.9 gm/dL (11.4-16.0); Lymphocytes % (A) 9 %; MCH 26.3 pg (25.0-35.0); MCHC 32.2 g/dL (31.0-37.0); MCV 81.7 fL (80.0-100.0); Mean Platelet Volume 7.1; Monocytes # (A) 0.4 k/uL (0-1.0); Monocytes % (A) 4 %; Neutrophils # (A) 8.9 k/uL (1.3-7.7); Neutrophils % (A) 84 %; Platelet Count 210 k/uL (150-450); RBC 4.13 m/uL (3.80-5.40); WBC 10.6 k/uL (3.8-10.6)
[2020-04-23] MEDS: MAGNESIUM HYDROXIDE 2,400 MG/10 ML CUP PO SCH (07:18)
[2020-04-23] MEDS: HEPARIN SODIUM,PORCINE 5,000 UNIT/ML 1 ML VIAL SQ SCH ×3 (07:19→23:49)
[2020-04-23] MEDS: INSULIN ASPART (NovoLOG) 100 UNIT/ML VIAL SQ SCH ×4 (07:33→20:01)
[2020-04-23] MEDS: polyethylene glycoL 3350 17 GM POWD.PACK PO SCH (07:34)
[2020-04-23] MEDS: ALBUTEROL NEBULIZED 2.5 MG/3 ML INHALATION PRN ×3 (08:12→19:31)
[2020-04-23] MEDS: SYMBICORT 160-4.5 MCG INHALER INHALATION SCH ×2 (08:12→19:32)
[2020-04-23] MEDS ORDERED: FAMOTIDINE 20 MG/2 ML VIAL IV SCH (09:00)
--- NOTE | 2020-04-23 09:48 | P.PN ---
Progress Note - Text Date: 04/23/2020 Time: 09:24 The patient is status post, exploratory laparotomy and colon resection, postoperative day number 2. The patient has no complaints of nausea vomiting or headache. The patient does not complain of any lower extremity numbness or weakness. The epidural is currently turned off. The patient's pain is adequately controlled. The service prefers the epidural to be discontinued, which will be this morning. Pain medicines will be administered the patient by the service.
--- NOTE | 2020-04-23 11:03 | P.PN ---
Subjective Progress Note Date: 04/23/20 CHIEF COMPLAINT: Bowel obstruction HISTORY OF PRESENT ILLNESS: Patient is postop day #2 status post Partial colectomy with end colostomy, lysis of adhesions, mobilization splenic flexure colonic obstruction secondary to descending colon constipation. Patient denies any abdominal pain. Her epidural was turned off yesterday due to her being lethargic and hypotensive. She is awake and answering questions appropriately. Her blood pressure stable. She is currently on a clear liquid diet. She denies any gas or stool through her ostomy. Afebrile. WBC 10.6 hemoglobin 10.9 blood sugar is 154. Patient is concerned about the clear liquid diet and it sugar content Chest x-ray cardiomegaly with increasing bilateral lower lobe infiltrates PHYSICAL EXAM: VITAL SIGNS: Reviewed. GENERAL: Well-developed in no acute distress. HEENT: No sclera icterus. Extraocular movements grossly intact. Moist buccal mucosa. Head is atraumatic, normocephalic. ABDOMEN: Soft. Mildly distended. Dressing has a few small areas of saturation of blood. Colostomy minimal bloody drainage. NEUROLOGIC: Alert and oriented. Cranial nerves II through XII grossly intact. ASSESSMENT: 1. Colonic obstruction secondary to descending colon constipation status post Partial colectomy with end colostomy, lysis of adhesions, mobilization splenic flexure colonic obstruction PLAN: -Advance diet to full liquids -Epidural scheduled to be discontinued today -Continue antibiotics -Encouraged patient to use incentive spirometer -DVT prophylaxis subcu heparin and GI prophylaxis Pepcid Physician Svp Programmatic Tv note has been reviewed by physician. Signing provider agrees with the documented findings, assessment, and plan of care. Objective - Vital Signs Vital signs: Vital Signs Temp 98.8 F 04/23/20 07:44 Pulse 90 04/23/20 08:24 Resp 18 04/23/20 07:44 BP 125/69 04/23/20 07:44 Pulse Ox 92 L 04/23/20 08:12 Intake & Output 04/22/20 04/23/20 04/23/20 18:59 06:59 18:59 Intake Total 200 Output Total 1400 Balance -1200 Intake: Oral 200 Output: Urine 1400 Uretheral (Ayala) 700 Other: Voiding Method Toilet # Voids 3 - Labs CBC & Chem 7: 04/23/20 06:50 04/22/20 05:53 Labs: Abnormal Lab Results - Last 24 Hours (Table) 04/22/20 04/22/20 04/22/20 Range/Units 11:41 16:38 20:19 Hgb (11.4-16.0) gm/dL Hct (34.0-46.0) % RDW (11.5-15.5) % Neutrophils # (1.3-7.7) k/uL POC Glucose (mg/dL) 194 H 196 H 166 H (75-99) mg/dL 04/23/20 04/23/20 Range/Units 06:50 06:59 Hgb 10.9 L (11.4-16.0) gm/dL Hct 33.8 L (34.0-46.0) % RDW 16.0 H (11.5-15.5) % Neutrophils # 8.9 H (1.3-7.7) k/uL POC Glucose (mg/dL) 154 H (75-99) mg/dL
[2020-04-23] MEDS: PANTOPRAZOLE 40 MG/10 ML VIAL IVP SCH (11:35)
[2020-04-23 12:36] LABS: Glucose,Whole Blood 162 mg/dL (75-99)
[2020-04-23 13:02] LABS: Anion Gap 7.1 mmol/L (4.00-12.00); BUN/Creat Ratio 12.22 Ratio (12.00-20.00); Carbon Dioxide 21.9 mmol/L (21.6-31.8); Potassium 4.7 mmol/L (3.5-5.5)
--- NOTE | 2020-04-23 15:52 | P.PN ---
Subjective Progress Note Date: 04/23/20 Abdominal pain secondary to constricting lesion in the lower aspect of descending colon versus stool impaction Patient is a 59-year-old female with a known history of CVA/TIA, diabetes type 2 insulin-dependent, hypertension, hyperlipidemia, seizure disorder, obstructive sleep apnea on CPAP, hypothyroidism and anxiety/depression presents to ER with complaints of abdominal pain and left lower quadrant pain mainly. Patient has been having symptoms for the past 3 days which are worsening. Does have nausea and on and off constipation. Last bowel movement was 2 days ago which was hard stool as per patient. Denied any hematemesis or melena. No hematochezia. Denied any fever or chills. No cough or sputum production. No dysuria or hematuria. Patient had prior hysterectomy cholecystectomy in the past. Denied any recent illnesses. No sick contacts or travel. Laboratory data showed sodium 135, potassium 4.4, chloride 103, BUN 15 and creatinine 0.73 Urinalysis showed large leukocyte esterase and 27 WBCs and 80 squamous of the cells WBC 9.3 and hemoglobin 12.8 and MCV 77.5 and platelets 334 Patient has been afebrile CT of the abdomen pelvis showed abrupt transition from dilated to nondilated colon in the lower aspect of the descending colon. This may represent a short segment of colitis however neoplastic constricting lesion should also be considered. 04/20/2020 Patient is currently resting in the bed comfortably. No complaints of chest pain or shortness of breath. Abdominal pain did improve. Otherwise repeat CT with rectal contrast showed similar obstructing lesion. Patient is being continued on stool softeners and laxatives. General surgery is on board. Possible surgical intervention without improvement on conservative therapy. 04/21/2020 Patient is currently resting in the bed comfortable. No complaints of chest pain. Abdominal discomfort is still present. Patient did not have any bowel movement with conservative therapy. General surgery is planning for partial colectomy and colostomy today. Otherwise patient is being continued on IV hydration and antibiotics and insulin sliding scale. Patient has been afebrile. Laboratory test showed WBC 7.9 and hemoglobin 12.6 and platelets 252 Sodium 138 potassium 4.5 chloride 103, BUN 9 and creatinine 0.9 04/22/2020 Patient is seen and evaluated in follow-up and apparently had an A team called on her this morning for decreased responsiveness. Patient was on epidural pain pump which was put on hold and will need to discuss with anesthesiology for epidural removal as patient is on Brilinta. Patient also states she was feeling short of breath and requesting a breathing treatment. Patient does use albuterol in the outpatient setting. She is currently on 4 L of oxygen at 93%. Will get a chest x-ray. Discussed with the patient about using incentive spirometer at least 10 times every hour while awake. To continue with bronchodilators. No stool output noted in the ostomy at this time. Patient denies passing gas. No reports of nausea or vomiting noted and patient is maintained on clear liquids. Surgery following. Abdominal discomfort slightly improved although slightly tender with palpation at the surgical site. White blood count is 13.5, sodium is 134, current creatinine is 1.9 and will continue with IV hydration and repeat labs. Patient is maintained on antibiotics in the form of Levaquin and Flagyl and will continue at this time. Chest x-ray shows cardiomegaly with increasing bilateral lower lobe infiltrate. 04/23/2020 She was seen and evaluated in follow-up continues to be weak and slightly short of breath. Patient is maintained on 4 L and is currently 92%. Apparently patient wears 2 L of oxygen while at rest and patient has not been up and out of the bed yet. Epidural is being discontinued and ordered PT/OT for evaluation. Patient again educated and reinstructed to use incentive spirometer at least 10 times every hour while awake. Patient is maintained on antibiotic some will continue at this time. To continue with breathing treatments and albuterol inhaler. Surgery is following. Ostomy nurse consulted for education regarding new colostomy. No stool output noted. Patient is currently maintained on clear liquids and tolerating. White blood count within normal limits in is 10.6. Hemoglobin is 10.9, sodium is 134, potassium is 4.7, current creatinine is 0.9. BNP was also done which is only 285. Per nursing staff patient reportedly had a low-grade fever and Tylenol is ordered. Will continue to monitor closely. Patient needs to increase activity as tolerated and sitting up in the chair out of the bed. Review of systems: Constitutional: Reports fatigue, and fever Cardiovascular: No reports of chest pain or palpitations Respiratory: No reports of shortness of breath or cough GI: No reports of nausea, vomiting, or diarrhea : No reports of dysuria or retention, has an indwelling Ayala catheter Neurovascular: Reports weakness All medications have been reviewed Objective - Vital Signs Vital signs: Vital Signs Temp 98.8 F 04/23/20 07:44 Pulse 90 04/23/20 08:24 Resp 18 04/23/20 07:44 BP 125/69 04/23/20 07:44 Pulse Ox 92 L 04/23/20 08:12 Intake & Output 04/22/20 04/23/20 04/23/20 18:59 06:59 18:59 Intake Total 200 Output Total 1400 100 Balance -1200 -100 Intake: Oral 200 Output: Urine 1400 Uretheral (Ayala) 700 Stool 100 Other: Voiding Method Toilet # Voids 3 - Exam Patient is sitting up in the bed, no acute distress, alert and oriented .Morbidly obese.. Lethargic although arousable HEENT: Normocephalic. Neck is supple. Pupils reactive. Nostrils clear. Oral cavity is moist. Ears reveal no drainage. Neck reveals no JVD, carotid bruits, or thyromegaly. CHEST EXAMINATION: Trachea is central. Symmetrical expansion. Diminished breath sounds with no wheezing or rhonchi noted CARDIAC: Normal S1, S2 with no gallops. No murmurs ABDOMEN: Soft. Bowel sounds present, Mild left lower quadrant tenderness. No guarding or rigidity.. No organomegaly. No abdominal bruits. Ostomy noted with a scant amount of sanguinous drainage and no stool or gas noted Extremities: reveal no edema. No clubbing or cyanosis Neurologically awake, alert, oriented x3 with well-coordinated movements. No focal deficits noted Skin: No rash or skin lesions. Psychiatric: Cooperative. Non-suicidal Musculoskeletal: No joint swelling or deformity. Normal range of motion. - Labs CBC & Chem 7: 04/23/20 06:50 04/23/20 06:50 Labs: Abnormal Lab Results - Last 24 Hours (Table) 04/22/20 04/22/20 04/23/20 Range/Units 16:38 20:19 06:50 Hgb 10.9 L (11.4-16.0) gm/dL Hct 33.8 L (34.0-46.0) % RDW 16.0 H (11.5-15.5) % Neutrophils # 8.9 H (1.3-7.7) k/uL Sodium (135-145) mmol/L Glucose (70-110) mg/dL POC Glucose (mg/dL) 196 H 166 H (75-99) mg/dL Calcium (8.7-10.3) mg/dL 04/23/20 04/23/20 04/23/20 Range/Units 06:50 06:59 12:35 Hgb (11.4-16.0) gm/dL Hct (34.0-46.0) % RDW (11.5-15.5) % Neutrophils # (1.3-7.7) k/uL Sodium 134 L (135-145) mmol/L Glucose 142 H (70-110) mg/dL POC Glucose (mg/dL) 154 H 162 H (75-99) mg/dL Calcium 8.0 L (8.7-10.3) mg/dL Assessment and Plan Assessment: Abdominal pain secondary to constricting lesion in the lower aspect of descending colon versus stool impaction. s/p Colectomy and Colostomy. POD 2 Bowel obstruction secondary to above Possible atelectasis versus lower lobe infiltrate as seen on chest x-ray. Incentive spirometer ordered and patient is maintained on IV antibiotics Possible urinary tract infection. cx showed normal farhan. Morbid obesity with BMI 52.2 Diabetes type 2 insulin-dependent Hypertension Hyperlipidemia Hearing disorder/deafness Obstructive sleep apnea on CPAP History of seizure disorder History of CVA/TIA Anxiety/depression Asthma not in exacerbation Fatty infiltration of liver History of irritable bowel syndrome DVT prophylaxis with heparin subcu Plan: Patient will be continued IV antibiotics in the form of Levaquin and Flagyl. Will decrease normal saline. She is tolerating diet. s/p Colectomy. Home medications resumed and patient will continue on albuterol breathing treatments. Patient instructed to continue with incentive spirometer at least 10 times every hour while awake. Epidural pain pump catheter being removed and patient instructed to increase activity as tolerated and get up out of the bed and in the chair.. Creatinine is 0.9 and will repeat a.m. labs. Ostomy nurse consulted for education regarding colostomy. PT/OT to evaluate the patient. Further recommendations based on the clinical course.
[2020-04-23] MEDS: SODIUM CHLORIDE 0.9% 1,000 ML IV SCH (16:37)
[2020-04-23 17:36] LABS: Glucose,Whole Blood 166 mg/dL (75-99)
[2020-04-23 20:00] LABS: Glucose,Whole Blood 160 mg/dL (75-99)
[2020-04-23] MEDS: INSULIN DETEMIR (LEVEMIR) 100 UNIT/ML SYR SQ SCH (20:01)
[2020-04-23] MEDS: DILTIAZEM CD 240 MG CAP.ER.24H PO SCH (20:02)
[2020-04-24] MEDS: metroNIDAZOLE-NS PMX 500 MG in SALINE 1 100ML.BAG IVPB SCH ×4 (03:48→20:49)
[2020-04-24] MEDS ORDERED: LEVOFLOXACIN 750MG-D5W PMX 750 MG in DEXTROSE/WATER 1 150ML.BAG IVPB SCH (05:00)
[2020-04-24 08:01] LABS: Glucose,Whole Blood 173 mg/dL (75-99)
[2020-04-24] MEDS: MAGNESIUM HYDROXIDE 2,400 MG/10 ML CUP PO SCH (08:02)
[2020-04-24] MEDS: PANTOPRAZOLE 40 MG/10 ML VIAL IVP SCH (08:13)
[2020-04-24] MEDS: HEPARIN SODIUM,PORCINE 5,000 UNIT/ML 1 ML VIAL SQ SCH ×3 (08:13→23:48)
[2020-04-24] MEDS: INSULIN ASPART (NovoLOG) 100 UNIT/ML VIAL SQ SCH ×4 (08:14→20:48)
[2020-04-24] MEDS: polyethylene glycoL 3350 17 GM POWD.PACK PO SCH (08:15)
[2020-04-24 08:38] LABS: Anisocytosis Slight; Basophils % (A) 0 %; Eosinophils # (A) 0.3 k/uL (0-0.7); Eosinophils % (A) 3 %; HCT 32.2 % (34.0-46.0); HGB 10.4 gm/dL (11.4-16.0); Hypochromasia Moderate; Lymphocytes # (A) 0.9 k/uL (1.0-4.8); Lymphocytes % (A) 10 %; MCH 26.9 pg (25.0-35.0); MCHC 32.2 g/dL (31.0-37.0); MCV 83.7 fL (80.0-100.0); Mean Platelet Volume 7.1; Monocytes # (A) 0.4 k/uL (0-1.0); Monocytes % (A) 5 %; Neutrophils # (A) 7.7 k/uL (1.3-7.7); Neutrophils % (A) 82 %; Platelet Count 233 k/uL (150-450); RBC 3.85 m/uL (3.80-5.40); RDW 16.1 % (11.5-15.5); WBC 9.4 k/uL (3.8-10.6)
[2020-04-24 08:52] LABS: African American GFR (CKD) >90 (>60 ml/min/1.73 sqM); Anion Gap 6 mmol/L; Blood Urea Nitrogen 7 mg/dL (7-17); Calcium 7.9 mg/dL (8.4-10.2); Carbon Dioxide 19 mmol/L (22-30); Chloride 108 mmol/L (98-107); Glucose 165 mg/dL (74-99); Non-African American GFR(CKD) >90 (>60 ml/min/1.73 sqM); Potassium 4.1 mmol/L (3.5-5.1); Sodium 133 mmol/L (137-145)
[2020-04-24] MEDS: ALBUTEROL NEBULIZED 2.5 MG/3 ML INHALATION PRN ×4 (09:21→21:34)
[2020-04-24] MEDS: SYMBICORT 160-4.5 MCG INHALER INHALATION SCH ×2 (09:21→21:34)
--- NOTE | 2020-04-24 10:41 | P.PN ---
Subjective Progress Note Date: 04/24/20 CHIEF COMPLAINT: Bowel obstruction HISTORY OF PRESENT ILLNESS: Patient is postop day #3 status post Partial colectomy with end colostomy, lysis of adhesions, mobilization splenic flexure for colonic obstruction secondary to descending colon constipation. Patient denies any abdominal pain. Patient's epidural was discontinued yesterday. Patient tolerating full liquid diet. Patient did have a temperature of 101 yesterday afternoon. This morning temperature is 98.6. On 4 L of oxygen at 95% WBC 9.4 Hgb 10.4. Patient's dressing was saturated with yellowish drainage. Patient has had air in her ostomy bag. No stool through the ostomy. PHYSICAL EXAM: VITAL SIGNS: Reviewed. GENERAL: Well-developed in no acute distress. HEENT: No sclera icterus. Extraocular movements grossly intact. Moist buccal mucosa. Head is atraumatic, normocephalic. ABDOMEN: distended. Colostomy minimal bloody drainage and air. Her incisional dressing has a yellowish drainage. The actual incision clean, dry and intact except for a very minimal small amount of clear to yellowish drainage from a staple whole in the middle of the incision NEUROLOGIC: Alert and oriented. Cranial nerves II through XII grossly intact. ASSESSMENT: 1. Colonic obstruction secondary to descending colon constipation status post P artial colectomy with end colostomy, lysis of adhesions, mobilization splenic flexure colonic obstruction PLAN: -Discontinue Ayala catheter -Consult pulmonary service for sleep apnea -Continue full liquid diet -Continue antibiotics -Encouraged patient to ambulate and use incentive spirometer -Dressing changed -Ostomy teaching today -DVT prophylaxis subcu heparin and GI prophylaxis Pepcid Physician Clearance Diver note has been reviewed by physician. Signing provider agrees with the documented findings, assessment, and plan of care. Objective - Vital Signs Vital signs: Vital Signs Temp 98.6 F 04/24/20 08:00 Pulse 88 04/24/20 09:21 Resp 18 04/24/20 09:00 BP 148/80 04/24/20 08:00 Pulse Ox 95 04/24/20 08:00 Intake & Output 04/23/20 04/24/20 04/24/20 18:59 06:59 18:59 Output Total 100 900 100 Balance -100 -900 -100 Output: Urine 900 Stool 100 100 Other: Voiding Method Toilet Toilet - Labs CBC & Chem 7: 04/24/20 08:17 04/24/20 08:17 Labs: Abnormal Lab Results - Last 24 Hours (Table) 04/23/20 04/23/20 04/23/20 Range/Units 06:50 12:35 17:33 Hgb (11.4-16.0) gm/dL Hct (34.0-46.0) % RDW (11.5-15.5) % Lymphocytes # (1.0-4.8) k/uL Sodium 134 L (135-145) mmol/L Chloride (98-107) mmol/L Carbon Dioxide (22-30) mmol/L Glucose 142 H (70-110) mg/dL POC Glucose (mg/dL) 162 H 166 H (75-99) mg/dL Calcium 8.0 L (8.7-10.3) mg/dL 04/23/20 04/24/20 04/24/20 Range/Units 19:58 08:00 08:17 Hgb 10.4 L (11.4-16.0) gm/dL Hct 32.2 L (34.0-46.0) % RDW 16.1 H (11.5-15.5) % Lymphocytes # 0.9 L (1.0-4.8) k/uL Sodium (135-145) mmol/L Chloride (98-107) mmol/L Carbon Dioxide (22-30) mmol/L Glucose (70-110) mg/dL POC Glucose (mg/dL) 160 H 173 H (75-99) mg/dL Calcium (8.7-10.3) mg/dL 04/24/20 Range/Units 08:17 Hgb (11.4-16.0) gm/dL Hct (34.0-46.0) % RDW (11.5-15.5) % Lymphocytes # (1.0-4.8) k/uL Sodium 133 L (135-145) mmol/L Chloride 108 H (98-107) mmol/L Carbon Dioxide 19 L (22-30) mmol/L Glucose 165 H (70-110) mg/dL POC Glucose (mg/dL) (75-99) mg/dL Calcium 7.9 L (8.7-10.3) mg/dL
[2020-04-24 12:09] LABS: Glucose,Whole Blood 159 mg/dL (75-99)
--- NOTE | 2020-04-24 15:29 | P.PN ---
Subjective Progress Note Date: 04/24/20 Abdominal pain secondary to constricting lesion in the lower aspect of descending colon versus stool impaction Patient is a 59-year-old female with a known history of CVA/TIA, diabetes type 2 insulin-dependent, hypertension, hyperlipidemia, seizure disorder, obstructive sleep apnea on CPAP, hypothyroidism and anxiety/depression presents to ER with complaints of abdominal pain and left lower quadrant pain mainly. Patient has been having symptoms for the past 3 days which are worsening. Does have nausea and on and off constipation. Last bowel movement was 2 days ago which was hard stool as per patient. Denied any hematemesis or melena. No hematochezia. Denied any fever or chills. No cough or sputum production. No dysuria or hematuria. Patient had prior hysterectomy cholecystectomy in the past. Denied any recent illnesses. No sick contacts or travel. Laboratory data showed sodium 135, potassium 4.4, chloride 103, BUN 15 and creatinine 0.73 Urinalysis showed large leukocyte esterase and 27 WBCs and 80 squamous of the cells WBC 9.3 and hemoglobin 12.8 and MCV 77.5 and platelets 334 Patient has been afebrile CT of the abdomen pelvis showed abrupt transition from dilated to nondilated colon in the lower aspect of the descending colon. This may represent a short segment of colitis however neoplastic constricting lesion should also be considered. 04/20/2020 Patient is currently resting in the bed comfortably. No complaints of chest pain or shortness of breath. Abdominal pain did improve. Otherwise repeat CT with rectal contrast showed similar obstructing lesion. Patient is being continued on stool softeners and laxatives. General surgery is on board. Possible surgical intervention without improvement on conservative therapy. 04/21/2020 Patient is currently resting in the bed comfortable. No complaints of chest pain. Abdominal discomfort is still present. Patient did not have any bowel movement with conservative therapy. General surgery is planning for partial colectomy and colostomy today. Otherwise patient is being continued on IV hydration and antibiotics and insulin sliding scale. Patient has been afebrile. Laboratory test showed WBC 7.9 and hemoglobin 12.6 and platelets 252 Sodium 138 potassium 4.5 chloride 103, BUN 9 and creatinine 0.9 04/22/2020 Patient is seen and evaluated in follow-up and apparently had an A team called on her this morning for decreased responsiveness. Patient was on epidural pain pump which was put on hold and will need to discuss with anesthesiology for epidural removal as patient is on Brilinta. Patient also states she was feeling short of breath and requesting a breathing treatment. Patient does use albuterol in the outpatient setting. She is currently on 4 L of oxygen at 93%. Will get a chest x-ray. Discussed with the patient about using incentive spirometer at least 10 times every hour while awake. To continue with bronchodilators. No stool output noted in the ostomy at this time. Patient denies passing gas. No reports of nausea or vomiting noted and patient is maintained on clear liquids. Surgery following. Abdominal discomfort slightly improved although slightly tender with palpation at the surgical site. White blood count is 13.5, sodium is 134, current creatinine is 1.9 and will continue with IV hydration and repeat labs. Patient is maintained on antibiotics in the form of Levaquin and Flagyl and will continue at this time. Chest x-ray shows cardiomegaly with increasing bilateral lower lobe infiltrate. 04/23/2020 She was seen and evaluated in follow-up continues to be weak and slightly short of breath. Patient is maintained on 4 L and is currently 92%. Apparently patient wears 2 L of oxygen while at rest and patient has not been up and out of the bed yet. Epidural is being discontinued and ordered PT/OT for evaluation. Patient again educated and reinstructed to use incentive spirometer at least 10 times every hour while awake. Patient is maintained on antibiotic some will continue at this time. To continue with breathing treatments and albuterol inhaler. Surgery is following. Ostomy nurse consulted for education regarding new colostomy. No stool output noted. Patient is currently maintained on clear liquids and tolerating. White blood count within normal limits in is 10.6. Hemoglobin is 10.9, sodium is 134, potassium is 4.7, current creatinine is 0.9. BNP was also done which is only 285. Per nursing staff patient reportedly had a low-grade fever and Tylenol is ordered. Will continue to monitor closely. Patient needs to increase activity as tolerated and sitting up in the chair out of the bed. 04/24/2020 Patient is seen and evaluated in follow-up currently sleeping although easily arousable. Patient is on 4 L and states she wears 2 L at home oxygen. She denies any worsening shortness of breath and is receiving breathing treatments. Incentive spirometer at the bedside and encourage the patient to continue using every hour at least 10 times while awake. To continue with antibiotics at this time. Surgery is following. PT/OT evaluated the patient and patient was noted to be up in the hallway walking with standby assistance with a walker. Patient is passing gas in the ostomy although no stool output noted at this time. Diet is being advanced. Review of systems: Constitutional: Reports fatigue, and fever Cardiovascular: No reports of chest pain or palpitations Respiratory: No reports of shortness of breath or cough GI: No reports of nausea, vomiting, or diarrhea : No reports of dysuria or retention Neurovascular: Reports weakness All medications have been reviewed Objective - Vital Signs Vital signs: Vital Signs Temp 98.6 F 04/24/20 08:00 Pulse 88 04/24/20 09:21 Resp 18 04/24/20 09:00 BP 148/80 04/24/20 08:00 Pulse Ox 95 04/24/20 08:00 Intake & Output 04/23/20 04/24/20 04/24/20 18:59 06:59 18:59 Output Total 100 900 100 Balance -100 -900 -100 Output: Urine 900 Stool 100 100 Other: Voiding Method Toilet Toilet - Exam Patient is sitting up in the bed, no acute distress, alert and oriented 3. Morbidly obese.. Lethargic although arousable HEENT: Normocephalic. Neck is supple. Pupils reactive. Nostrils clear. Oral cavity is moist. Ears reveal no drainage. Neck reveals no JVD, carotid bruits, or thyromegaly. CHEST EXAMINATION: Trachea is central. Symmetrical expansion. Diminished breath sounds with no wheezing or rhonchi noted CARDIAC: Normal S1, S2 with no gallops. No murmurs ABDOMEN: Soft. Bowel sounds present, Mild left lower quadrant tenderness. No guarding or rigidity.. No organomegaly. No abdominal bruits. Ostomy noted with a scant amount of sanguinous drainage and gas noted with no stool output as of yet Extremities: reveal no edema. No clubbing or cyanosis Neurologically awake, alert, oriented x3 with well-coordinated movements. No focal deficits noted Skin: No rash or skin lesions. Psychiatric: Cooperative. Non-suicidal Musculoskeletal: No joint swelling or deformity. Normal range of motion. - Labs CBC & Chem 7: 04/24/20 08:17 04/24/20 08:17 Labs: Abnormal Lab Results - Last 24 Hours (Table) 04/23/20 04/23/20 04/23/20 Range/Units 06:50 12:35 17:33 Hgb (11.4-16.0) gm/dL Hct (34.0-46.0) % RDW (11.5-15.5) % Lymphocytes # (1.0-4.8) k/uL Sodium 134 L (135-145) mmol/L Chloride (98-107) mmol/L Carbon Dioxide (22-30) mmol/L Glucose 142 H (70-110) mg/dL POC Glucose (mg/dL) 162 H 166 H (75-99) mg/dL Calcium 8.0 L (8.7-10.3) mg/dL 04/23/20 04/24/20 04/24/20 Range/Units 19:58 08:00 08:17 Hgb 10.4 L (11.4-16.0) gm/dL Hct 32.2 L (34.0-46.0) % RDW 16.1 H (11.5-15.5) % Lymphocytes # 0.9 L (1.0-4.8) k/uL Sodium (135-145) mmol/L Chloride (98-107) mmol/L Carbon Dioxide (22-30) mmol/L Glucose (70-110) mg/dL POC Glucose (mg/dL) 160 H 173 H (75-99) mg/dL Calcium (8.7-10.3) mg/dL 04/24/20 Range/Units 08:17 Hgb (11.4-16.0) gm/dL Hct (34.0-46.0) % RDW (11.5-15.5) % Lymphocytes # (1.0-4.8) k/uL Sodium 133 L (135-145) mmol/L Chloride 108 H (98-107) mmol/L Carbon Dioxide 19 L (22-30) mmol/L Glucose 165 H (70-110) mg/dL POC Glucose (mg/dL) (75-99) mg/dL Calcium 7.9 L (8.7-10.3) mg/dL Assessment and Plan Assessment: Abdominal pain secondary to constricting lesion in the lower aspect of descending colon versus stool impaction. s/p Colectomy and Colostomy. POD 3 Bowel obstruction secondary to above Possible atelectasis versus lower lobe infiltrate as seen on chest x-ray. Incentive spirometer ordered and patient is maintained on IV antibiotics Possible urinary tract infection. cx showed normal farhan. Morbid obesity with BMI 52.2 Diabetes type 2 insulin-dependent Hypertension Hyperlipidemia Hearing disorder/deafness Obstructive sleep apnea on CPAP History of seizure disorder History of CVA/TIA Anxiety/depression Asthma not in exacerbation Fatty infiltration of liver History of irritable bowel syndrome DVT prophylaxis with heparin subcu Plan: Patient will be continued IV antibiotics in the form of Levaquin and Flagyl. She is tolerating diet and diet is being advanced. s/p Colectomy. Home medications resumed and patient will continue on albuterol breathing treatments. Patient instructed to continue with incentive spirometer at least 10 times every hour while awake. PT/OT evaluated the patient. Further recommendations based on the clinical course. Possible discharge in 24-48 hours.
[2020-04-24 16:45] LABS: Glucose,Whole Blood 161 mg/dL (75-99)
[2020-04-24 20:34] LABS: Glucose,Whole Blood 174 mg/dL (75-99)
[2020-04-24] MEDS: DILTIAZEM CD 240 MG CAP.ER.24H PO SCH (20:49)
[2020-04-24 21:13] VITALS: RESP 22
[2020-04-24] MEDS: INSULIN DETEMIR (LEVEMIR) 100 UNIT/ML SYR SQ SCH (23:48)
[2020-04-25] MEDS: metroNIDAZOLE-NS PMX 500 MG in SALINE 1 100ML.BAG IVPB SCH ×2 (04:22→10:09)
[2020-04-25 05:39] LABS: Anisocytosis Slight; Basophils % (A) 0 %; Eosinophils # (A) 0.3 k/uL (0-0.7); Eosinophils % (A) 4 %; HCT 32.5 % (34.0-46.0); HGB 10.1 gm/dL (11.4-16.0); Lymphocytes # (A) 1.2 k/uL (1.0-4.8); Lymphocytes % (A) 13 %; MCH 25.1 pg (25.0-35.0); MCV 80.9 fL (80.0-100.0); Mean Platelet Volume 6.8; Monocytes # (A) 0.5 k/uL (0-1.0); Monocytes % (A) 5 %; Neutrophils # (A) 6.9 k/uL (1.3-7.7); Neutrophils % (A) 76 %; Platelet Count 292 k/uL (150-450); RBC 4.02 m/uL (3.80-5.40); RDW 16.1 % (11.5-15.5); WBC 9.1 k/uL (3.8-10.6)
[2020-04-25 07:13] LABS: African American GFR (CKD) >90 (>60 ml/min/1.73 sqM); Anion Gap 7 mmol/L; Blood Urea Nitrogen 5 mg/dL (7-17); Carbon Dioxide 19 mmol/L (22-30); Chloride 109 mmol/L (98-107); Glucose 149 mg/dL (74-99); Non-African American GFR(CKD) >90 (>60 ml/min/1.73 sqM); Potassium 3.8 mmol/L (3.5-5.1); Sodium 135 mmol/L (137-145)
[2020-04-25 07:19] LABS: Glucose,Whole Blood 131 mg/dL (75-99)
[2020-04-25] MEDS: HEPARIN SODIUM,PORCINE 5,000 UNIT/ML 1 ML VIAL SQ SCH (07:27)
[2020-04-25] MEDS: PANTOPRAZOLE 40 MG/10 ML VIAL IVP SCH (07:27)
[2020-04-25] MEDS: INSULIN ASPART (NovoLOG) 100 UNIT/ML VIAL SQ SCH ×2 (07:27→12:03)
[2020-04-25] MEDS: MAGNESIUM HYDROXIDE 2,400 MG/10 ML CUP PO SCH (07:28)
[2020-04-25] MEDS: polyethylene glycoL 3350 17 GM POWD.PACK PO SCH (07:28)
[2020-04-25 07:51] VITALS: BP 150/70; TEMP 98
[2020-04-25] MEDS ORDERED: LEVOFLOXACIN 750MG-D5W PMX 750 MG in DEXTROSE/WATER 1 150ML.BAG IVPB SCH (09:00)
[2020-04-25] MEDS: ALBUTEROL NEBULIZED 2.5 MG/3 ML INHALATION PRN ×2 (09:04→11:52)
[2020-04-25] MEDS: SYMBICORT 160-4.5 MCG INHALER INHALATION SCH (09:04)
[2020-04-25 11:18] LABS: Glucose,Whole Blood 194 mg/dL (75-99)
[2020-04-25 12:05] VITALS: PULSE 92
--- NOTE | 2020-04-25 13:20 | P.PN ---
Subjective Progress Note Date: 04/25/20 CHIEF COMPLAINT: Bowel obstruction HISTORY OF PRESENT ILLNESS: Patient is postop day #4 status post Partial colectomy with end colostomy, lysis of adhesions, mobilization splenic flexure for colonic obstruction secondary to descending colon constipation. Patient denies any abdominal pain. Patient tolerating full liquid diet. She is passing air and stool through her ostomy. She is gone through her ostomy teaching. She is afebrile. WBC is 9.1. She has been up and ambulating. Denies any nausea or vomiting. Patient does have some clear drainage noted from the mid abdomen incision site. This is likely fluid from edema due to patient laying to always one side in the bed. Encouraged patient to ambulate and change positions while lying down. PHYSICAL EXAM: VITAL SIGNS: Reviewed. GENERAL: Well-developed in no acute distress. HEENT: No sclera icterus. Extraocular movements grossly intact. Moist buccal mucosa. Head is atraumatic, normocephalic. ABDOMEN: distended. Colostomy with air and stool present. Clear drainage noted from the mid abdomen incision site NEUROLOGIC: Alert and oriented. Cranial nerves II through XII grossly intact. ASSESSMENT: 1. Colonic obstruction secondary to descending colon constipation status post Partial colectomy with end colostomy, lysis of adhesions, mobilization splenic flexure colonic obstruction PLAN: -Patient is stable for discharge from surgical standpoint -Patient follow-up with Dr. Ceron in 1 week -Continue Tylenol as needed for pain -Patient has completed ostomy teaching -DVT prophylaxis subcu heparin and GI prophylaxis Pepcid Physician [employer] note has been reviewed by physician. Signing provider agrees with the documented findings, assessment, and plan of care. Objective - Vital Signs Vital signs: Vital Signs Temp 98.0 F 04/25/20 07:50 Pulse 92 04/25/20 12:04 Resp 22 04/25/20 07:50 BP 150/70 04/25/20 07:50 Pulse Ox 95 04/25/20 07:50 Intake & Output 04/24/20 04/25/20 04/25/20 18:59 06:59 18:59 Intake Total 150 Output Total 100 1300 Balance -100 -1150 Intake: Oral 150 Output: Urine 1100 Uretheral (Ayala) 200 Stool 100 200 Other: Voiding Method Toilet Toilet # Voids 3 - Labs CBC & Chem 7: 04/25/20 05:27 04/25/20 05:27 Labs: Abnormal Lab Results - Last 24 Hours (Table) 04/24/20 04/24/20 04/25/20 Range/Units 16:43 20:32 05:27 Hgb 10.1 L (11.4-16.0) gm/dL Hct 32.5 L (34.0-46.0) % RDW 16.1 H (11.5-15.5) % Sodium (137-145) mmol/L Chloride (98-107) mmol/L Carbon Dioxide (22-30) mmol/L BUN (7-17) mg/dL Glucose (74-99) mg/dL POC Glucose (mg/dL) 161 H 174 H (75-99) mg/dL Calcium (8.4-10.2) mg/dL 04/25/20 04/25/20 04/25/20 Range/Units 05:27 07:17 11:13 Hgb (11.4-16.0) gm/dL Hct (34.0-46.0) % RDW (11.5-15.5) % Sodium 135 L (137-145) mmol/L Chloride 109 H (98-107) mmol/L Carbon Dioxide 19 L (22-30) mmol/L BUN 5 L (7-17) mg/dL Glucose 149 H (74-99) mg/dL POC Glucose (mg/dL) 131 H 194 H (75-99) mg/dL Calcium 8.0 L (8.4-10.2) mg/dL
--- NOTE | 2020-04-26 08:53 | P.DS ---
Providers Date of admission: 04/19/20 03:56 Expected date of discharge: 04/25/20 Attending physician: Maik Sanchez Consults: 04/19/20 03:54 Consult Physician Routine Consulting Provider: Rosas Ceron Consult Reason/Comments: Colitis vs neoplasm Do you want consulting provider notified?: Yes 04/24/20 11:35 Consult Physician Routine Consulting Provider: Weston Sloan Consult Reason/Comments: sleep apnea Do you want consulting provider notified?: Yes Primary care physician: [facility] Hospital Course: Final Diagnosis Abdominal pain secondary to constricting lesion in the lower aspect of descending colon versus stool impaction. s/p Colectomy and Colostomy Bowel obstruction secondary to above Possible atelectasis versus lower lobe infiltrate as seen on chest x-ray Possible urinary tract infection. cx showed normal farhan. Morbid obesity with BMI 52.2 Diabetes type 2 insulin-dependent Hypertension Hyperlipidemia Hearing disorder/deafness Obstructive sleep apnea on CPAP History of seizure disorder History of CVA/TIA Anxiety/depression Asthma not in exacerbation Fatty infiltration of liver History of irritable bowel syndrome DVT prophylaxis Discharge disposition Patient is being discharged in a stable condition with guarded prognosis to home. Patient will have home care in the outpatient setting. Patient will follow-up with [facility] in the outpatient setting upon discharge. Patient also instructed to follow-up with Dr. Ceron surgery in 1 week. Patient is to continue with antibiotics in the form of Levaquin 750 mg for the next 5 days to complete course. Total time taken is greater than 35 minutes. Hospital course This is a 59-year-old female who was recently admitted with abdominal pain and left lower quadrant pain and was being closely monitored. CT of the abdomen showed abrupt transition from dilated to nondilated colon in the lower aspect of the descending colon with a possible neoplastic constricting lesion and was seen and evaluated by surgery and underwent partial colectomy and colostomy after failed conservative therapies. She will follow-up with Dr. Ceron in the outpatient setting in 1 week. Patient instructed to continue using incentive spirometer at least 10 times every hour while awake and increase activity as tolerated. Patient was initiated on antibiotics and will continue with oral antibiotics to complete the course. Patient's incision site had some mild drainage noted at one of the kusum which was sanguinous with no purulence redness or swelling noted. Ostomy site is functioning and stool has been noted. Patient received education from ostomy nurse and will continue with home care in the outpatient setting. She is tolerating diet with no reports of nausea or vomiting noted. Currently no reports of chest pain, shortness of breath, or palpitations. Patient is afebrile. No reports of nausea or vomiting and patient is tolerating diet. Patient will be discharged home today. On exam vital signs are stable. Temp is 98.0F, pulse is 75, respirations are 22, blood pressure is 150/70, oxygen saturation is 98% on 2 L via nasal cannula. Patient does wear 2 L in the outpatient setting. Cardio S1, S2 are muffled. Respiratory system shows diminished breath sounds at the bases with no wheezing or rhonchi noted. Abdomen is soft and obese, and nontender. Nervous system shows no focal deficits. Please refer to medication reconciliation sheet for a list of medications. Patient Condition at Discharge: Stable Plan - Discharge Summary New Discharge Prescriptions: New Diltiazem Cd [Cardizem CD] 240 mg PO HS 30 Days #30 cap.er.24h polyethylene glycoL 3350 [Miralax] 17 gm PO DAILY 30 Days #30 powd.pack Acetaminophen Tab [Tylenol] 650 mg PO Q6HR PRN tab PRN Reason: Fever And/ Or Pain Levofloxacin [Levaquin] 750 mg PO DAILY 5 Days #5 tab Continue Loratadine [Claritin] 10 mg PO HS rOPINIRole HCL [Requip Xl] 4 mg PO HS Budesonide-Formot 160-4.5 Mcg [Symbicort 160-4.5 Mcg Inhaler] 2 puff INHALATION RT-BID Albuterol Sulfate [Proair Hfa] 1 - 2 puff INHALATION RT-Q6H PRN PRN Reason: Shortness Of Breath Ticagrelor [Brilinta] 90 mg PO BID #60 tab EPINEPHrine (Auto Inject) [Epipen] 0.3 mg IM ONCE PRN PRN Reason: Anaphylaxis Dulaglutide [Trulicity] 1.5 mg SQ MO metFORMIN HCL [Glucophage] 500 mg PO BID Atorvastatin [Lipitor] 10 mg PO MOFR Sennosides/Docusate Sodium [Senna Plus 8.6-50 mg Tablet] 1 tab PO HS Insulin Glargine,Hum.rec.anlog [Lantus Solostar] 40 unit SQ HS Miconazole Nitrate [Lotrimin AF Powder] 1 applic TOPICAL DAILY PRN PRN Reason: Rash Losartan [Cozaar] 50 mg PO BID Discontinued Diltiazem Cd [Cardizem Cd] 300 mg PO HS Aspirin 81 mg PO HS Discharge Medication List Loratadine [Claritin] 10 mg PO HS 06/09/15 [History] rOPINIRole HCL [Requip Xl] 4 mg PO HS 06/09/15 [History] Budesonide-Formot 160-4.5 Mcg [Symbicort 160-4.5 Mcg Inhaler] 2 puff INHALATION RT-BID 03/17/16 [History] Albuterol Sulfate [Proair Hfa] 1 - 2 puff INHALATION RT-Q6H PRN 08/10/18 [History] Ticagrelor [Brilinta] 90 mg PO BID #60 tab 08/12/18 [Rx] Atorvastatin [Lipitor] 10 mg PO MOFR 04/19/20 [History] Dulaglutide [Trulicity] 1.5 mg SQ MO 04/19/20 [History] EPINEPHrine (Auto Inject) [Epipen] 0.3 mg IM ONCE PRN 04/19/20 [History] Insulin Glargine,Hum.rec.anlog [Lantus Solostar] 40 unit SQ HS 04/19/20 [History] Losartan [Cozaar] 50 mg PO BID 04/19/20 [History] Miconazole Nitrate [Lotrimin AF Powder] 1 applic TOPICAL DAILY PRN 04/19/20 [History] Sennosides/Docusate Sodium [Senna Plus 8.6-50 mg Tablet] 1 tab PO HS 04/19/20 [History] metFORMIN HCL [Glucophage] 500 mg PO BID 04/19/20 [History] Acetaminophen Tab [Tylenol] 650 mg PO Q6HR PRN tab 04/25/20 [Rx] Diltiazem Cd [Cardizem CD] 240 mg PO HS 30 Days #30 cap.er.24h 04/25/20 [Rx] Levofloxacin [Levaquin] 750 mg PO DAILY 5 Days #5 tab 04/25/20 [Rx] polyethylene glycoL 3350 [Miralax] 17 gm PO DAILY 30 Days #30 powd.pack 04/25/20 [Rx] Follow up Appointment(s)/Referral(s): Rosas Ceron MD [Medical Doctor] - 05/01/20 3:45 pm [facility] [Primary Care Provider] - 05/08/20 1:00 pm (This was the soonest available new patient appointment. ) Patient Instructions/Handouts: Colostomy Care (GEN) Activity/Diet/Wound Care/Special Instructions: surgery to clear for dc [facility] Only able to have a 14day supply of rx filled at discharge per [place]. [facility] must be faxed at discharge. Ostomy Care Recommendations for Home: Last pouching system change: 04.24.2020 Osotmy supplies being sent home with Ms Steiner: Convatec flange wafers moldable technology # [id number] (three) Convatec pouches with filter #[id number] (three) No sting prep pads (10) Osotmy powder (one) Ms Steiner is to change the pouching system every 3-5 days Ms Steiner is to empty the pouchign system when it is 1/3 to 1/2 fulll Home health services please assist Ms Steiner to establish osotmy supplies and possibly disposable pouches in 2-3 weeks. r Activity Limited until follow-up Follow-up with surgery in the outpatient setting Follow-up with primary care provider upon discharge Continue using incentive spirometer at least 10 times every hour while awake Continue with antibiotics until finished Continue with full liquids consistent carb and slowly advanced diet as tolerated No lifting over 10 pounds You may shower. No soaking or tub baths for 2 weeks Very light activity until you are reevaluated at your follow up appointment with your surgeon Discharge Disposition: HOME WITH HOME HEALTH SERVICES
--- NOTE | 2020-04-30 01:13 | CDI ---
Documentation Clarification Form Date: 04/30/2020 From: Haseeb Shine Phone: If you have a question about this query, please contact Apple Chopra, Human Factors Specialist at [phone] between 8am and 5pm. Admit Date: 04/19/2020 03:56:00 AM Patient Name: Halima Steiner Visit Number: [id number] Discharge Date: 04/25/2020 02:55:00 PM ATTENTION: The Clinical Documentation Specialists (CDI) and [facility] Coding Staff appreciate your assistance in clarifying documentation. Please respond to the clarification below the line at the bottom and electronically sign. The CDI & [facility] Coding staff will review the response and follow-up if needed. Please note: Queries are made part of the Legal Health Record. If you have any questions, please contact the author of this message via ITS. Dr. Lorne Pnio MD., Possible atelectasis versus lower lobe infiltrate as seen on chest x-ray mentioned in your notes. History/Risk Factors: morbid obesity, BMI 52.2, Hypothyroidism, Hyperlipidemia Clinical Indicators:Abdominal pain secondary to constricting lesion in the lower aspect of descending colon versus stool impaction. s/p Colectomy and Colostomy. Vital signs:04/19/20 09:56 98 F 76 18 159/62 X-ray: Cardiomegaly with increasing bilateral lower lobe infiltrate. Treatment: Patient will be continued IV antibiotics in the form of Levaquin and Flagyl Antibiotics : Levaquin and flagyl Possible atelectasis versus lower lobe infiltrate as seen on chest x-ray. Incentive spirometer ordered and patient is maintained on IV antibiotics. In order to capture the severity of condition, please clarify if the condition signifies and you are treating for: Pneumonia and atelectasis Other, please specify___ Unable to determine No pneumonia MTDD
== END 2020-04-25 14:55 | disposition home health service (06) | DRG 330 ==
LOC: EC 01:07 → 4SSUR 03:56 → 5NMEDONC 04-23 11:16
PROVIDERS: ADMIT Internal Medicine; ATTEND Internal Medicine
PROC: 0D1M0Z4 Bypass Descending Colon to Cutaneous, Open Approach (ICD-10-PCS; principal; 2020-04-21 11:30)
PROC: 0DBM0ZZ Excision of Descending Colon, Open Approach (ICD-10-PCS; principal; 2020-04-21 11:30)
DX: K56.41 Fecal impaction (principal); K55.9 Vascular disorder of intestine, unspecified; Z68.43 Body mass index [BMI] 50.0-59.9, adult; N39.0 Urinary tract infection, site not specified; J98.11 Atelectasis; E03.9 Hypothyroidism, unspecified; E66.01 Morbid (severe) obesity due to excess calories; E11.9 Type 2 diabetes mellitus without complications; E78.5 Hyperlipidemia, unspecified; F32.9 Major depressive disorder, single episode, unspecified; F41.9 Anxiety disorder, unspecified; G25.81 Restless legs syndrome; G40.909 Epilepsy, unspecified, not intractable, without status epilepticus; G47.33 Obstructive sleep apnea (adult) (pediatric); H91.90 Unspecified hearing loss, unspecified ear; I10 Essential (primary) hypertension; I27.20 Pulmonary hypertension, unspecified; J44.9 Chronic obstructive pulmonary disease, unspecified; K21.9 Gastro-esophageal reflux disease without esophagitis; K22.70 Barrett's esophagus without dysplasia; K76.0 Fatty (change of) liver, not elsewhere classified; Z79.4 Long term (current) use of insulin; Z79.02 Long term (current) use of antithrombotics/antiplatelets; Z79.51 Long term (current) use of inhaled steroids; Z79.82 Long term (current) use of aspirin; Z79.890 Hormone replacement therapy; Z79.899 Other long term (current) drug therapy; Z91.030 Bee allergy status; Z88.7 Allergy status to serum and vaccine; Z88.8 Allergy status to other drugs, medicaments and biological substances; Z91.048 Other nonmedicinal substance allergy status; Z91.09 Other allergy status, other than to drugs and biological substances; Z87.442 Personal history of urinary calculi; Z90.710 Acquired absence of both cervix and uterus; Z97.4 Presence of external hearing-aid; Z86.73 Personal history of transient ischemic attack (TIA), and cerebral infarction without residual deficits; Z85.038 Personal history of other malignant neoplasm of large intestine; Z82.5 Family history of asthma and other chronic lower respiratory diseases; Z80.0 Family history of malignant neoplasm of digestive organs; Z82.49 Family history of ischemic heart disease and other diseases of the circulatory system; Z90.49 Acquired absence of other specified parts of digestive tract; Z98.890 Other specified postprocedural states
CPT/HCPCS: 36415; 71045; 74019; 74176; 74177; 80048; 80053; 81001; 82378; 83605; 83690; 83880; 85025; 87086; 88307; 94640; 94760; 96361; 96365; 96375; 96376; 99285

== ENCOUNTER 2020-04-26 20:59 | Inpatient (IN) | payer OTHER ==
[2020-04-26] MEDS ORDERED: MORPHINE SULFATE 4 MG/ML SYRINGE IV STA (21:22)
[2020-04-26] MEDS ORDERED: ONDANSETRON 4 MG/2 ML VIAL IVP STA (21:22)
[2020-04-26] MEDS ORDERED: SODIUM CHLORIDE 0.9% 1,000 ML IV STA (21:22)
--- NOTE | 2020-04-26 21:29 | ED ---
General Adult HPI - General Chief complaint: Chest Pain Stated complaint: Vomiting/chest pain Time Seen by Provider: 04/26/20 21:06 Source: patient Mode of arrival: wheelchair Limitations: no limitations - History of Present Illness Initial comments: Patient presents the ED complaining of having intermittent nausea and vomiting since yesterday, and left-sided chest pain that began this afternoon. Patient states that she was just discharged from the hospital. Patient had a colectomy with colostomy performed by Dr. Ceron (general surgery) 5 days ago. Patient also states that she has had left-sided abdominal pain since her surgery. Patient admits to feeling dyspneic, but she states that she has chronic dyspnea, and she denies any increase or change in her dyspnea. Patient denies trauma or injury, fever or chills, headache, focal neuro deficit, neck/arm/jaw/back pain, pleuritic pain, cough or cold symptoms, palpitations, dizziness, decreased her bloody ostomy output, dysuria or urinary symptoms, decreased urine output, leg or swelling or pain, or any other symptoms or complaints. Patient states that she changed her colostomy bag just prior to arrival to the ED tonight. - Related Data Home Medications Medication Instructions Recorded Confirmed Loratadine [Claritin] 10 mg PO HS 06/09/15 04/26/20 rOPINIRole HCL [Requip Xl] 4 mg PO HS 06/09/15 04/26/20 Budesonide-Formot 160-4.5 Mcg 2 puff INHALATION RT-BID 03/17/16 04/26/20 [Symbicort 160-4.5 Mcg Inhaler] Albuterol Sulfate [Proair Hfa] 1 - 2 puff INHALATION RT-Q6H PRN 08/10/18 04/26/20 Atorvastatin [Lipitor] 10 mg PO MOFR 04/19/20 04/26/20 Dulaglutide [Trulicity] 1.5 mg SQ MO 04/19/20 04/26/20 EPINEPHrine (Auto Inject) [Epipen] 0.3 mg IM ONCE PRN 04/19/20 04/26/20 Insulin Glargine,Hum.rec.anlog 40 unit SQ HS 04/19/20 04/26/20 [Lantus Solostar] Losartan [Cozaar] 50 mg PO BID 04/19/20 04/26/20 Miconazole Nitrate [Lotrimin AF 1 applic TOPICAL DAILY PRN 04/19/20 04/26/20 Powder] Sennosides/Docusate Sodium [Senna 1 tab PO HS 04/19/20 04/26/20 Plus 8.6-50 mg Tablet] metFORMIN HCL [Glucophage] 500 mg PO BID 04/19/20 04/26/20 Levofloxacin [Levaquin] 750 mg PO HS 04/26/20 04/26/20 Previous Rx's Medication Instructions Recorded Ticagrelor [Brilinta] 90 mg PO BID #60 tab 08/12/18 Acetaminophen Tab [Tylenol] 650 mg PO Q6HR PRN tab 04/25/20 Diltiazem Cd [Cardizem CD] 240 mg PO HS 30 Days #30 cap.er.24h 04/25/20 polyethylene glycoL 3350 [Miralax] 17 gm PO DAILY 30 Days #30 04/25/20 powd.pack Allergies Allergy/AdvReac Type Severity Reaction Status Date / Time ammonia Allergy Unknown Verified 04/26/20 21:40 barium sulfate Allergy Unknown Verified 04/26/20 21:40 dulaglutide [From Trulicity] Allergy Dyspnea Verified 04/26/20 21:40 exenatide [From Byetta] Allergy Unknown Verified 04/26/20 21:40 feathers Allergy Unknown Verified 04/26/20 21:40 fexofenadine HCl Allergy Unknown Verified 04/26/20 21:40 [From Elena] hydrochlorothiazide Allergy Unknown Verified 04/26/20 21:40 influenza virus vaccine, Allergy Unknown Verified 04/26/20 21:40 specific isosorbide [From Imdur] Allergy Unknown Verified 04/26/20 21:40 meperidine HCl [From Demerol] Allergy Anaphylaxis Verified 04/26/20 21:40 nifedipine [From Procardia] Allergy Unknown Verified 04/26/20 21:40 nitroglycerin Allergy Unknown Verified 04/26/20 21:40 paroxetine [From Paxil] Allergy Unknown Verified 04/26/20 21:40 paroxetine HCl [From Paxil] Allergy Unknown Verified 04/26/20 21:40 sertraline HCl [From Zoloft] Allergy Unknown Verified 04/26/20 21:40 simvastatin [From Zocor] Allergy Unknown Verified 04/26/20 21:40 Ounjctv-Xoc-Ytj Reductase Allergy Unknown Verified 04/26/20 21:40 Inhibitor venom-honey bee Allergy Anaphylaxis Verified 04/26/20 21:40 [bee venom (honey bee)] zolpidem [From Ambien] Allergy Unknown Verified 04/26/20 21:40 zolpidem tartrate Allergy Unknown Verified 04/26/20 21:40 [From Ambien] lactose AdvReac Nausea & Verified 04/26/20 21:40 Vomiting & Diarrhea hay Allergy Dyspnea Uncoded 04/26/20 21:40 lysol Allergy Dyspnea Uncoded 04/26/20 21:40 Review of Systems ROS Statement: Those systems with pertinent positive or pertinent negative responses have been documented in the HPI. ROS Other: All systems not noted in ROS Statement are negative. Past Medical History Past Medical History: Asthma, COPD, CVA/TIA, Diabetes Mellitus, GERD/Reflux, Hearing Disorder / Deafness, Hyperlipidemia, Hypertension, Seizure Disorder, Sleep Apnea/CPAP/BIPAP, Thyroid Disorder Additional Past Medical History / Comment(s): additional hx: right bundle branch block,barretts esophagus, migraines, deanna hearing aids, lung nodules, fatty liver, pulmonary hypertension, heart murmur,obesity, IBS, RLS, arthritis, ADHD, DJD, anemia, lactose intolerance; last seizure 21 years ago, kidney stones x2 History of Any Multi-Drug Resistant Organisms: None Reported Past Surgical History: Bowel Resection, Cholecystectomy, Hysterectomy Additional Past Surgical History / Comment(s): breast biopsy,esophageal surgery - 2002 Past Anesthesia/Blood Transfusion Reactions: No Reported Reaction Past Psychological History: Anxiety, Depression Smoking Status: Never smoker Past Alcohol Use History: None Reported Past Drug Use History: None Reported - Past Family History Mother History Unknown: Yes Family Medical History: Congestive Heart Failure (CHF), Myocardial Infarction ([place]) Additional Family Medical History / Comment(s): 77 Father History Unknown: Yes Family Medical History: COPD, Myocardial Infarction ([place]) Additional Family Medical History / Comment(s): at 56 Sister(s) History Unknown: Yes Family Medical History: Myocardial Infarction ([place]) Additional Family Medical History / Comment(s): at 56 Brother(s) Family Medical History: Cancer Additional Family Medical History / Comment(s): colon cancer General Exam Limitations: no limitations General appearance: alert, in no apparent distress Head exam: Present: atraumatic, normocephalic Eye exam: Present: normal appearance, EOMI ENT exam: Present: mucous membranes moist Neck exam: Present: other (Trachea is in midline) Respiratory exam: Present: normal lung sounds bilaterally. Absent: respiratory distress, wheezes, rales, rhonchi, stridor, chest wall tenderness Cardiovascular Exam: Present: regular rate, normal rhythm, normal heart sounds, other (Normal radial pulses bilaterally) GI/Abdominal exam: Present: soft, normal bowel sounds (Obese abdomen; colostomy with bag in place; moderate diffuse left-sided tenderness; surgical wounds have kusum in place and do not have any evidence of infection or cellulitis), other (Moderate diffuse left-sided abdominal tenderness; obese abdomen; colostomy with bag in place; surgical wounds have kusum in place and do not show any evidence of infection or cellulitis). Absent: guarding, rebound Extremities exam: Present: other (Negative Homans sign bilaterally). Absent: tenderness, pedal edema, calf tenderness Neurological exam: Present: alert, oriented X3. Absent: motor sensory deficit Psychiatric exam: Present: normal affect, normal mood Skin exam: Present: warm, dry, intact, normal color Course Vital Signs 04/26/20 04/26/20 04/26/20 21:01 22:00 23:37 Temperature 97.9 F Pulse Rate 83 73 74 Respiratory 20 18 18 Rate Blood Pressure 129/72 153/82 O2 Sat by Pulse 96 98 Oximetry - Reevaluation(s) Reevaluation #1: 04/26/20 23:37 Patient denies development of any new symptoms while in the ED. Patient has not had any vomiting while in the ED. Patient's abdomen remains soft and nontender on examination. Patient remains alert and breathing comfortably with a normal room air oxygen saturation. Patient is aware of her test results, and she agrees with hospital admission at this time. 04/26/20 23:51 Multiple attempts have been made to page/call/contact Dr. Faria without response so far. Dr. Pena will continue to attempt to contact Dr. Faria (secondary to end of my shift) concerning patient's admission, otherwise, he will notify her/her team in the morning. Admission orders have been placed. EKG Findings - EKG Comments: EKG Findings:: Normal sinus rhythm, ventricular rate of 77 bpm, no ectopy, right bundle branch block, normal WI interval, normal QT interval, normal axis, no significant change when compared to 08/11/2018 EKG Medical Decision Making - Medical Decision Making Patient's EKG is unchanged from prior, and her troponin is negative. Patient's CT angiography chest is negative for pulmonary embolism. Still, given the patient's reported chest pain and recent surgery, will admit the patient to the hospital for cardiac monitoring and further evaluation of her chest pain. I suspect the patient's abdominal pain and vomiting are likely secondary to ileus given the patient's CT abdomen/pelvis findings. Patient has a soft and nonsurgical abdominal exam. Patient is afebrile and without leukocytosis. - Lab Data Result diagrams: 04/26/20 21:30 04/26/20 21:26 Lab Results 04/26/20 04/26/20 04/26/20 Range/Units 21:26 21:26 21:26 WBC (3.8-10.6) k/uL RBC (3.80-5.40) m/uL Hgb (11.4-16.0) gm/dL Hct (34.0-46.0) % MCV (80.0-100.0) fL MCH (25.0-35.0) pg MCHC (31.0-37.0) g/dL RDW (11.5-15.5) % Plt Count (150-450) k/uL MPV Neutrophils % % Lymphocytes % % Monocytes % % Eosinophils % % Basophils % % Neutrophils # (1.3-7.7) k/uL Lymphocytes # (1.0-4.8) k/uL Monocytes # (0-1.0) k/uL Eosinophils # (0-0.7) k/uL Basophils # (0-0.2) k/uL Anisocytosis Microcytosis PT 10.9 (9.0-12.0) sec INR 1.0 (<1.2) APTT 26.5 (22.0-30.0) sec Sodium 134 L (137-145) mmol/L Potassium 3.8 (3.5-5.1) mmol/L Chloride 104 (98-107) mmol/L Carbon Dioxide 22 (22-30) mmol/L Anion Gap 8 mmol/L BUN 9 (7-17) mg/dL Creatinine 0.64 (0.52-1.04) mg/dL Est GFR (CKD-EPI)AfAm >90 (>60 ml/min/1.73 sqM) Est GFR (CKD-EPI)NonAf >90 (>60 ml/min/1.73 sqM) Glucose 196 H (74-99) mg/dL Plasma Lactic Acid Mitchell 1.3 (0.7-2.0) mmol/L Calcium 8.9 (8.4-10.2) mg/dL Magnesium 1.5 L (1.6-2.3) mg/dL Total Bilirubin 0.6 (0.2-1.3) mg/dL AST 25 (14-36) U/L ALT 22 (4-34) U/L Alkaline Phosphatase 94 (38-126) U/L Troponin I (0.000-0.034) ng/mL NT-Pro-B Natriuret Pep pg/mL Total Protein 5.8 L (6.3-8.2) g/dL Albumin 3.1 L (3.5-5.0) g/dL Lipase 118 (23-300) U/L 04/26/20 04/26/20 04/26/20 Range/Units 21:26 21:26 21:30 WBC 8.7 (3.8-10.6) k/uL RBC 4.24 (3.80-5.40) m/uL Hgb 10.9 L (11.4-16.0) gm/dL Hct 33.5 L (34.0-46.0) % MCV 78.8 L (80.0-100.0) fL MCH 25.8 (25.0-35.0) pg MCHC 32.7 (31.0-37.0) g/dL RDW 16.1 H (11.5-15.5) % Plt Count 384 (150-450) k/uL MPV 6.9 Neutrophils % 72 % Lymphocytes % 14 % Monocytes % 5 % Eosinophils % 6 % Basophils % 0 % Neutrophils # 6.3 (1.3-7.7) k/uL Lymphocytes # 1.2 (1.0-4.8) k/uL Monocytes # 0.5 (0-1.0) k/uL Eosinophils # 0.6 (0-0.7) k/uL Basophils # 0.0 (0-0.2) k/uL Anisocytosis Slight Microcytosis Slight PT (9.0-12.0) sec INR (<1.2) APTT (22.0-30.0) sec Sodium (137-145) mmol/L Potassium (3.5-5.1) mmol/L Chloride (98-107) mmol/L Carbon Dioxide (22-30) mmol/L Anion Gap mmol/L BUN (7-17) mg/dL Creatinine (0.52-1.04) mg/dL Est GFR (CKD-EPI)AfAm (>60 ml/min/1.73 sqM) Est GFR (CKD-EPI)NonAf (>60 ml/min/1.73 sqM) Glucose (74-99) mg/dL Plasma Lactic Acid Mitchell (0.7-2.0) mmol/L Calcium (8.4-10.2) mg/dL Magnesium (1.6-2.3) mg/dL Total Bilirubin (0.2-1.3) mg/dL AST (14-36) U/L ALT (4-34) U/L Alkaline Phosphatase (38-126) U/L Troponin I <0.012 (0.000-0.034) ng/mL NT-Pro-B Natriuret Pep 786 pg/mL Total Protein (6.3-8.2) g/dL Albumin (3.5-5.0) g/dL Lipase (23-300) U/L - Radiology Data Radiology results: report reviewed (CT angiography chest: No evidence of pulmonary embolism, right lower lobe airspace infiltrate and atelectasis, right pleural effusion, borderline aneurysm of the ascending aorta; CT abdomen/pelvis with IV contrast: Colon surgery, dilated proximal jejunum suggestive of ileus, no obstructing lesion) Disposition Clinical Impression: Chest pain, Abdominal pain, Vomiting, Ileus Disposition: ADMITTED IP TO THIS HOSP Condition: Stable Is patient prescribed a controlled substance at d/c from ED?: No Referrals: [facility] [Primary Care Provider] - 1-2 days Time of Disposition: 23:51
[2020-04-26 21:55] LABS: Anisocytosis Slight; Basophils % (A) 0 %; Eosinophils # (A) 0.6 k/uL (0-0.7); Eosinophils % (A) 6 %; HCT 33.5 % (34.0-46.0); HGB 10.9 gm/dL (11.4-16.0); Lymphocytes # (A) 1.2 k/uL (1.0-4.8); Lymphocytes % (A) 14 %; MCH 25.8 pg (25.0-35.0); MCHC 32.7 g/dL (31.0-37.0); MCV 78.8 fL (80.0-100.0); Mean Platelet Volume 6.9; Microcytosis Slight; Monocytes # (A) 0.5 k/uL (0-1.0); Monocytes % (A) 5 %; Neutrophils # (A) 6.3 k/uL (1.3-7.7); Neutrophils % (A) 72 %; Platelet Count 384 k/uL (150-450); RBC 4.24 m/uL (3.80-5.40); RDW 16.1 % (11.5-15.5); WBC 8.7 k/uL (3.8-10.6)
[2020-04-26 22:15] LABS: ALT 22 U/L (4-34); AST 25 U/L (14-36); African American GFR (CKD) >90 (>60 ml/min/1.73 sqM); Albumin 3.1 g/dL (3.5-5.0); Alkaline Phosphatase 94 U/L (38-126); Anion Gap 8 mmol/L; Blood Urea Nitrogen 9 mg/dL (7-17); Calcium 8.9 mg/dL (8.4-10.2); Carbon Dioxide 22 mmol/L (22-30); Chloride 104 mmol/L (98-107); Glucose 196 mg/dL (74-99); Lipase 118 U/L (23-300); Magnesium 1.5 mg/dL (1.6-2.3); Non-African American GFR(CKD) >90 (>60 ml/min/1.73 sqM); Potassium 3.8 mmol/L (3.5-5.1); Sodium 134 mmol/L (137-145); Total Bilirubin 0.6 mg/dL (0.2-1.3); Total Protein 5.8 g/dL (6.3-8.2)
[2020-04-26 22:39] LABS: Partial Thromboplastin Time 26.5 sec (22.0-30.0); Prothrombin Time 10.9 sec (9.0-12.0)
--- NOTE | 2020-04-26 22:41 | CT ---
EXAMINATION TYPE: CT angio chest DATE OF EXAM: 04/26/2020 COMPARISON: 03/17/2016 HISTORY: pe CT DLP: 862.2 mGycm Automated exposure control for dose reduction was used. CONTRAST: Performed with IV Contrast, patient injected with 100 mL of Isovue 370. Our 3-D post processed images. There is small right pleural effusion. There is some airspace consolidation and atelectasis right low er lobe. Heart size is fairly normal. There is no pericardial effusion. There is no mediastinal adenopathy. Thoracic aorta is intact and measures 3.9 cm. There is no dissect ion. I see no filling defects in the pulmonary arteries. There are few right bronchial lymph nodes that me asure up to 1 cm. There is mild spurring in the thoracic spine. Bony thorax appears intact. Upper abdominal soft tissue s appear intact. IMPRESSION: No evidence of pulmonary embolism. There is right lower lobe airspace infiltrate and atelectasis that appears new compared to old exam. Right pleural effusion new compared to old exam. Borderline aneury sm of the ascending aorta.
--- NOTE | 2020-04-26 22:54 | CT ---
EXAMINATION TYPE: CT abdomen pelvis w con DATE OF EXAM: 04/26/2020 COMPARISON: 04/19/2020 HISTORY: pain CT DLP: 2013.6 mGycm Automated exposure control for dose reduction was used. CONTRAST: Performed with IV Contrast, patient injected with 100 mL of Isovue 370. Images obtained from the diaphragm to the floor the pelvis with IV contrast. FINDINGS: There is infiltrate and atelectasis right lung base with mild right pleural effusion. Heart size is n ormal. There is no pericardial effusion. Left lung base is fairly clear. The stomach is intact. Liver and spleen appear intact. The bile ducts are not dilated. There are clip s from cholecystectomy. There is no evidence of pancreatic mass. There is no adrenal mass. Kidneys show satisfactory contrast opacification. There is no hydronephrosi s. Ureters are not dilated. There is no retroperitoneal adenopathy. Bladder distends smoothly. There is air in the urinary bladder probably from catheterization. There is no free fluid in the pelvis. Th ere is no evidence of pelvic mass. There is a transverse colostomy. There is apparent resection of th e splenic flexure of the colon. There is apparent dilated proximal jejunum loop in the left mid abdom en up to 4.3 cm in diameter. There is subcutaneous edema around the abdomen. The lumbar vertebra show a first-degree L5-S1 spondyl olisthesis with bilateral L5 spondylolysis. I see no evidence of free air. There is no evidence of an y significant ascites fluid. The bony pelvis is intact. IMPRESSION: Previous surgery. Colon surgery compared to old exam. Dilated proximal jejunum suggestive of ileus. N o obstructing lesion seen. This appears new compared to old exam. There is infiltrate and atelectasis and pleural fluid at the right lung base that is new compared to recent exam.
[2020-04-26] MEDS ORDERED: ONDANSETRON 4 MG/2 ML VIAL IVP PRN (23:38)
[2020-04-26] MEDS ORDERED: NALOXONE 0.4 MG/ML 1 ML VIAL IV PRN (23:38)
[2020-04-26] MEDS ORDERED: MORPHINE SULFATE 4 MG/ML SYRINGE IV PRN (23:38)
[2020-04-26] MEDS: SODIUM CHLORIDE 0.9% 1,000 ML IV SCH (23:52)
[2020-04-27] MEDS ORDERED: ACETAMINOPHEN TAB 325 MG TAB PO PRN (07:23)
[2020-04-27] MEDS ORDERED: NYSTATIN 100,000 UNIT/GM POWD 15 GM TOPICAL PRN (07:23)
[2020-04-27] MEDS ORDERED: ALBUTEROL NEBULIZED 2.5 MG/3 ML INHALATION PRN (07:23)
[2020-04-27] MEDS ORDERED: Magnesium Replacement Protocol 1 EACH MISC MISCELLANE PRN (07:24)
[2020-04-27 07:49] LABS: Basophils % (A) 0 %; Eosinophils # (A) 0.6 k/uL (0-0.7); Eosinophils % (A) 8 %; HCT 31.9 % (34.0-46.0); HGB 10.5 gm/dL (11.4-16.0); Lymphocytes # (A) 1.5 k/uL (1.0-4.8); Lymphocytes % (A) 21 %; MCH 26.1 pg (25.0-35.0); MCHC 32.8 g/dL (31.0-37.0); MCV 79.7 fL (80.0-100.0); Mean Platelet Volume 6.9; Monocytes # (A) 0.5 k/uL (0-1.0); Monocytes % (A) 7 %; Neutrophils # (A) 4.6 k/uL (1.3-7.7); Neutrophils % (A) 64 %; Platelet Count 345 k/uL (150-450); RDW 15.8 % (11.5-15.5); WBC 7.2 k/uL (3.8-10.6)
[2020-04-27 08:12] LABS: ALT 19 U/L (4-34); AST 20 U/L (14-36); African American GFR (CKD) >90 (>60 ml/min/1.73 sqM); Albumin 2.9 g/dL (3.5-5.0); Alkaline Phosphatase 80 U/L (38-126); Anion Gap 5 mmol/L; Blood Urea Nitrogen 7 mg/dL (7-17); Calcium 8.6 mg/dL (8.4-10.2); Carbon Dioxide 27 mmol/L (22-30); Chloride 105 mmol/L (98-107); Glucose 170 mg/dL (74-99); Non-African American GFR(CKD) >90 (>60 ml/min/1.73 sqM); Sodium 137 mmol/L (137-145); Total Bilirubin 0.4 mg/dL (0.2-1.3); Total Protein 5.3 g/dL (6.3-8.2)
[2020-04-27] MEDS: SYMBICORT 160-4.5 MCG INHALER INHALATION SCH ×2 (08:17→20:29)
[2020-04-27 09:45] VITALS: BMI 52.1
[2020-04-27] MEDS: LOSARTAN 50 MG TAB PO SCH ×2 (10:43→20:25)
[2020-04-27] MEDS: TICAGRELOR 90 MG TAB PO SCH ×2 (10:43→20:26)
--- NOTE | 2020-04-27 11:39 | P.GSCN ---
History of Present Illness Consult date: 04/27/20 Reason for Consult: Ileus History of present illness: This is a 59-year-old female who is readmitted through the emergency room last night. Patient procedure for perforated diverticulitis. Patient has poor living conditions at home. She was brought to the hospital by a friend. Her x- rays consistent with an ileus. Past Medical History Past Medical History: Asthma, COPD, CVA/TIA, Diabetes Mellitus, GERD/Reflux, Hearing Disorder / Deafness, Hyperlipidemia, Hypertension, Seizure Disorder, Sleep Apnea/CPAP/BIPAP, Thyroid Disorder Additional Past Medical History / Comment(s): additional hx: right bundle branch block,barretts esophagus, migraines, deanna hearing aids, lung nodules, fatty liver, pulmonary hypertension, heart murmur,obesity, IBS, RLS, arthritis, ADHD, DJD, anemia, lactose intolerance; last seizure 21 years ago, kidney stones x2 History of Any Multi-Drug Resistant Organisms: None Reported Past Surgical History: Bowel Resection, Cholecystectomy, Hysterectomy Additional Past Surgical History / Comment(s): breast biopsy,esophageal surgery - 2002 Past Anesthesia/Blood Transfusion Reactions: No Reported Reaction Past Psychological History: Anxiety, Depression Smoking Status: Never smoker Past Alcohol Use History: None Reported Past Drug Use History: None Reported - Past Family History Mother History Unknown: Yes Family Medical History: Congestive Heart Failure (CHF), Myocardial Infarction ([place]) Additional Family Medical History / Comment(s): 77 Father History Unknown: Yes Family Medical History: COPD, Myocardial Infarction ([place]) Additional Family Medical History / Comment(s): at 56 Sister(s) History Unknown: Yes Family Medical History: Myocardial Infarction ([place]) Additional Family Medical History / Comment(s): at 56 Brother(s) Family Medical History: Cancer Additional Family Medical History / Comment(s): colon cancer Medications and Allergies Home Medications Medication Instructions Recorded Confirmed Type Loratadine [Claritin] 10 mg PO HS 06/09/15 04/26/20 History rOPINIRole HCL [Requip Xl] 4 mg PO HS 06/09/15 04/26/20 History Budesonide-Formot 160-4.5 Mcg 2 puff INHALATION RT-BID 03/17/16 04/26/20 History [Symbicort 160-4.5 Mcg Inhaler] Albuterol Sulfate [Proair Hfa] 1 - 2 puff INHALATION RT-Q6H PRN 08/10/18 04/26/20 History Ticagrelor [Brilinta] 90 mg PO BID #60 tab 08/12/18 04/26/20 Rx Atorvastatin [Lipitor] 10 mg PO MOFR 04/19/20 04/26/20 History Dulaglutide [Trulicity] 1.5 mg SQ MO 04/19/20 04/26/20 History EPINEPHrine (Auto Inject) [Epipen] 0.3 mg IM ONCE PRN 04/19/20 04/26/20 History Insulin Glargine,Hum.rec.anlog 40 unit SQ HS 04/19/20 04/26/20 History [Lantus Solostar] Losartan [Cozaar] 50 mg PO BID 04/19/20 04/26/20 History Miconazole Nitrate [Lotrimin AF 1 applic TOPICAL DAILY PRN 04/19/20 04/26/20 History Powder] Sennosides/Docusate Sodium [Senna 1 tab PO HS 04/19/20 04/26/20 History Plus 8.6-50 mg Tablet] metFORMIN HCL [Glucophage] 500 mg PO BID 04/19/20 04/26/20 History Acetaminophen Tab [Tylenol] 650 mg PO Q6HR PRN tab 04/25/20 04/26/20 Rx Diltiazem Cd [Cardizem CD] 240 mg PO HS 30 Days #30 cap.er.24h 04/25/20 04/26/20 Rx polyethylene glycoL 3350 [Miralax] 17 gm PO DAILY 30 Days #30 04/25/20 04/26/20 Rx powd.pack Levofloxacin [Levaquin] 750 mg PO HS 04/26/20 04/26/20 History Allergies Allergy/AdvReac Type Severity Reaction Status Date / Time ammonia Allergy Unknown Verified 04/26/20 21:40 barium sulfate Allergy Unknown Verified 04/26/20 21:40 dulaglutide [From Trulicity] Allergy Dyspnea Verified 04/26/20 21:40 exenatide [From Byetta] Allergy Unknown Verified 04/26/20 21:40 feathers Allergy Unknown Verified 04/26/20 21:40 fexofenadine HCl Allergy Unknown Verified 04/26/20 21:40 [From Elena] hydrochlorothiazide Allergy Unknown Verified 04/26/20 21:40 influenza virus vaccine, Allergy Unknown Verified 04/26/20 21:40 specific isosorbide [From Imdur] Allergy Unknown Verified 04/26/20 21:40 meperidine HCl [From Demerol] Allergy Anaphylaxis Verified 04/26/20 21:40 nifedipine [From Procardia] Allergy Unknown Verified 04/26/20 21:40 nitroglycerin Allergy Unknown Verified 04/26/20 21:40 paroxetine [From Paxil] Allergy Unknown Verified 04/26/20 21:40 paroxetine HCl [From Paxil] Allergy Unknown Verified 04/26/20 21:40 sertraline HCl [From Zoloft] Allergy Unknown Verified 04/26/20 21:40 simvastatin [From Zocor] Allergy Unknown Verified 04/26/20 21:40 Kqauxly-Wbb-Jxg Reductase Allergy Unknown Verified 04/26/20 21:40 Inhibitor venom-honey bee Allergy Anaphylaxis Verified 04/26/20 21:40 [bee venom (honey bee)] zolpidem [From Ambien] Allergy Unknown Verified 04/26/20 21:40 zolpidem tartrate Allergy Unknown Verified 04/26/20 21:40 [From Ambien] lactose AdvReac Nausea & Verified 04/26/20 21:40 Vomiting & Diarrhea hay Allergy Dyspnea Uncoded 04/26/20 21:40 lysol Allergy Dyspnea Uncoded 04/26/20 21:40 Surgical - Exam Vital Signs Temp Pulse Resp BP Pulse Ox 97.9 F 83 20 129/72 96 04/26/20 21:01 04/26/20 21:01 04/26/20 21:01 04/26/20 21:01 04/26/20 21:01 - General well developed, well nourished, no distress - Eyes PERRL - ENT normal pinna - Neck no masses - Respiratory normal expansion - Cardiovascular Rhythm: regular - Abdomen Colostomy left lower quadrant Abdomen: soft, non tender Results - Labs 04/27/20 07:10 04/27/20 07:10 Abnormal Lab Results - Last 24 Hours (Table) 04/26/20 04/26/20 04/27/20 Range/Units 21:26 21:30 07:10 Hgb 10.9 L 10.5 L (11.4-16.0) gm/dL Hct 33.5 L 31.9 L (34.0-46.0) % MCV 78.8 L 79.7 L (80.0-100.0) fL RDW 16.1 H 15.8 H (11.5-15.5) % Sodium 134 L (137-145) mmol/L Glucose 196 H (74-99) mg/dL Magnesium 1.5 L (1.6-2.3) mg/dL Total Protein 5.8 L (6.3-8.2) g/dL Albumin 3.1 L (3.5-5.0) g/dL 04/27/20 Range/Units 07:10 Hgb (11.4-16.0) gm/dL Hct (34.0-46.0) % MCV (80.0-100.0) fL RDW (11.5-15.5) % Sodium (137-145) mmol/L Glucose 170 H (74-99) mg/dL Magnesium (1.6-2.3) mg/dL Total Protein 5.3 L (6.3-8.2) g/dL Albumin 2.9 L (3.5-5.0) g/dL Diabetes panel 04/26/20 04/27/20 Range/Units 21:26 07:10 Sodium 134 L 137 (137-145) mmol/L Potassium 3.8 4.0 (3.5-5.1) mmol/L Chloride 104 105 (98-107) mmol/L Carbon Dioxide 22 27 (22-30) mmol/L BUN 9 7 (7-17) mg/dL Creatinine 0.64 0.70 (0.52-1.04) mg/dL Glucose 196 H 170 H (74-99) mg/dL Calcium 8.9 8.6 (8.4-10.2) mg/dL AST 25 20 (14-36) U/L ALT 22 19 (4-34) U/L Alkaline Phosphatase 94 80 (38-126) U/L Total Protein 5.8 L 5.3 L (6.3-8.2) g/dL Albumin 3.1 L 2.9 L (3.5-5.0) g/dL Calcium panel 04/26/20 04/27/20 Range/Units 21:26 07:10 Calcium 8.9 8.6 (8.4-10.2) mg/dL Albumin 3.1 L 2.9 L (3.5-5.0) g/dL Pituitary panel 04/26/20 04/27/20 Range/Units 21:26 07:10 Sodium 134 L 137 (137-145) mmol/L Potassium 3.8 4.0 (3.5-5.1) mmol/L Chloride 104 105 (98-107) mmol/L Carbon Dioxide 22 27 (22-30) mmol/L BUN 9 7 (7-17) mg/dL Creatinine 0.64 0.70 (0.52-1.04) mg/dL Glucose 196 H 170 H (74-99) mg/dL Calcium 8.9 8.6 (8.4-10.2) mg/dL Adrenal panel 04/26/20 04/27/20 Range/Units 21:26 07:10 Sodium 134 L 137 (137-145) mmol/L Potassium 3.8 4.0 (3.5-5.1) mmol/L Chloride 104 105 (98-107) mmol/L Carbon Dioxide 22 27 (22-30) mmol/L BUN 9 7 (7-17) mg/dL Creatinine 0.64 0.70 (0.52-1.04) mg/dL Glucose 196 H 170 H (74-99) mg/dL Calcium 8.9 8.6 (8.4-10.2) mg/dL Total Bilirubin 0.6 0.4 (0.2-1.3) mg/dL AST 25 20 (14-36) U/L ALT 22 19 (4-34) U/L Alkaline Phosphatase 94 80 (38-126) U/L Total Protein 5.8 L 5.3 L (6.3-8.2) g/dL Albumin 3.1 L 2.9 L (3.5-5.0) g/dL Assessment and Plan Assessment: There is some output in the colostomy bag. I'm unsure of the significance of her ileus. Patient was placed on full liquid diet. We'll have social work consult for home care placement
[2020-04-27 12:10] LABS: Glucose,Whole Blood 150 mg/dL (75-99)
[2020-04-27] MEDS: polyethylene glycoL 3350 17 GM POWD.PACK PO SCH (13:00)
[2020-04-27] MEDS: SODIUM CHLORIDE 0.9% 1,000 ML IV SCH (14:17)
[2020-04-27 16:40] LABS: Glucose,Whole Blood 185 mg/dL (75-99)
[2020-04-27 19:57] LABS: Glucose,Whole Blood 187 mg/dL (75-99)
[2020-04-27] MEDS: DILTIAZEM CD 240 MG CAP.ER.24H PO SCH (20:25)
[2020-04-27] MEDS: LORATADINE 10 MG TAB PO SCH (20:25)
[2020-04-27] MEDS: SENNOSIDES-DOCUSATE SODIUM 1 EACH TAB PO SCH (20:25)
[2020-04-27] MEDS: INSULIN DETEMIR (LEVEMIR) 100 UNIT/ML SYR SQ SCH (20:26)
[2020-04-28] MEDS: SODIUM CHLORIDE 0.9% 1,000 ML IV SCH ×2 (03:58→16:04)
[2020-04-28 06:17] LABS: Glucose,Whole Blood 89 mg/dL (75-99)
[2020-04-28] MEDS: SYMBICORT 160-4.5 MCG INHALER INHALATION SCH ×2 (08:06→19:38)
[2020-04-28] MEDS: polyethylene glycoL 3350 17 GM POWD.PACK PO SCH (08:31)
[2020-04-28] MEDS: TICAGRELOR 90 MG TAB PO SCH (08:31)
[2020-04-28] MEDS: LOSARTAN 50 MG TAB PO SCH ×2 (08:31→20:48)
--- NOTE | 2020-04-28 10:58 | P.PN ---
Progress Note - Text Progress Note Date: 04/28/20 Patient has bowel movement in her colostomy. She states she feels better. On exam vital signs are stable. Abdomen soft. There is stool colostomy. Resolving ileus. Patient will be discharged home once her living conditions had been verified.
--- NOTE | 2020-04-28 11:41 | P.CRDCN ---
History of Present Illness Consult date: 04/28/20 Requesting physician: Stveen Faria Reason for Consult (text): CP, uncontrolled HTN Chief complaint: post op n/v, chest pain History of present illness: This is a pleasant 59-year-old female patient who is followed in the past with Dr. Hernandez. She has a known history of hypertension, hyperlipidemia, diabetes, COPD, CAD with prior cath in 2019 which showed critical lesion involving the mid LAD, mild disease involving the left main and the proximal LAD. At that time she underwent stent placement to the mid LAD. She has not followed up in our office since that time. According to her she been doing well. She was recently admitted to the hospital with a bowel obstruction and underwent colectomy with colostomy placement. She was discharged on the eighth and subsequently readmitted later that day with complaints of nausea, vomiting, abdominal discomfort and chest pain. Troponins were negative 3. EKG showed no evidence of ischemia. CT of the chest showed no evidence of pulmonary embolism with right lower lobe air space infiltrate and atelectasis, right pleural effusion, borderline aneurysmal ascending aorta measuring 3.[address] of the abdomen and pelvis showed dilated proximal jejunum suggestive of ileus, no obstructing lesion seen. So showed infiltrate and atelectasis and pleural fluid at the right lung base. She is being followed by surgery. She currently is being maintained on Lipitor 10 mg by mouth twice a week, Cardizem 140 mg by mouth daily at bedtime, Levemir, Trulicity, losartan 50 mg by mouth twice a day, and Brilinta 80 mg by mouth twice a day. She states she was previously on aspirin but this was held for surgery. Her magnesium came back to be low this morning at 1.5 in the face. Her blood pressure has been elevated. On examination the patient is sitting up in a chair. She does not appear to be in any acute distress. Denies further chest Discomfort. She does state that her chest discomfort she had prior to admission did remind her what she experienced prior to her stent placement in 1999. She has occasional palpitations which is unchanged. She also has some dyspnea on exertion which she attributes to her COPD and is stable. Past Medical History Past Medical History: Asthma, COPD, CVA/TIA, Diabetes Mellitus, GERD/Reflux, Hearing Disorder / Deafness, Hyperlipidemia, Hypertension, Seizure Disorder, Sleep Apnea/CPAP/BIPAP, Thyroid Disorder Additional Past Medical History / Comment(s): additional hx: right bundle branch block,barretts esophagus, migraines, deanna hearing aids, lung nodules, fatty liver, pulmonary hypertension, heart murmur,obesity, IBS, RLS, arthritis, ADHD, DJD, anemia, lactose intolerance; last seizure 21 years ago, kidney stones x2 History of Any Multi-Drug Resistant Organisms: None Reported Past Surgical History: Bowel Resection, Cholecystectomy, Hysterectomy Additional Past Surgical History / Comment(s): breast biopsy,esophageal surgery - 2002 Past Anesthesia/Blood Transfusion Reactions: No Reported Reaction Past Psychological History: Anxiety, Depression Smoking Status: Never smoker Past Alcohol Use History: None Reported Past Drug Use History: None Reported - Past Family History Mother History Unknown: Yes Family Medical History: Congestive Heart Failure (CHF), Myocardial Infarction ([place]) Additional Family Medical History / Comment(s): 77 Father History Unknown: Yes Family Medical History: COPD, Myocardial Infarction ([place]) Additional Family Medical History / Comment(s): at 56 Sister(s) History Unknown: Yes Family Medical History: Myocardial Infarction ([place]) Additional Family Medical History / Comment(s): at 56 Brother(s) Family Medical History: Cancer Additional Family Medical History / Comment(s): colon cancer Medications and Allergies Home Medications Medication Instructions Recorded Confirmed Type Loratadine [Claritin] 10 mg PO HS 06/09/15 04/26/20 History rOPINIRole HCL [Requip Xl] 4 mg PO HS 06/09/15 04/26/20 History Budesonide-Formot 160-4.5 Mcg 2 puff INHALATION RT-BID 03/17/16 04/26/20 History [Symbicort 160-4.5 Mcg Inhaler] Albuterol Sulfate [Proair Hfa] 1 - 2 puff INHALATION RT-Q6H PRN 08/10/18 04/26/20 History Ticagrelor [Brilinta] 90 mg PO BID #60 tab 08/12/18 04/26/20 Rx Atorvastatin [Lipitor] 10 mg PO MOFR 04/19/20 04/26/20 History Dulaglutide [Trulicity] 1.5 mg SQ MO 04/19/20 04/26/20 History EPINEPHrine (Auto Inject) [Epipen] 0.3 mg IM ONCE PRN 04/19/20 04/26/20 History Insulin Glargine,Hum.rec.anlog 40 unit SQ HS 04/19/20 04/26/20 History [Lantus Solostar] Losartan [Cozaar] 50 mg PO BID 04/19/20 04/26/20 History Miconazole Nitrate [Lotrimin AF 1 applic TOPICAL DAILY PRN 04/19/20 04/26/20 History Powder] Sennosides/Docusate Sodium [Senna 1 tab PO HS 04/19/20 04/26/20 History Plus 8.6-50 mg Tablet] metFORMIN HCL [Glucophage] 500 mg PO BID 04/19/20 04/26/20 History Acetaminophen Tab [Tylenol] 650 mg PO Q6HR PRN tab 04/25/20 04/26/20 Rx Diltiazem Cd [Cardizem CD] 240 mg PO HS 30 Days #30 cap.er.24h 04/25/20 04/26/20 Rx polyethylene glycoL 3350 [Miralax] 17 gm PO DAILY 30 Days #30 04/25/20 04/26/20 Rx powd.pack Levofloxacin [Levaquin] 750 mg PO HS 04/26/20 04/26/20 History Allergies Allergy/AdvReac Type Severity Reaction Status Date / Time ammonia Allergy Unknown Verified 04/26/20 21:40 barium sulfate Allergy Unknown Verified 04/26/20 21:40 dulaglutide [From Trulicity] Allergy Dyspnea Verified 04/26/20 21:40 exenatide [From Byetta] Allergy Unknown Verified 04/26/20 21:40 feathers Allergy Unknown Verified 04/26/20 21:40 fexofenadine HCl Allergy Unknown Verified 04/26/20 21:40 [From Elena] hydrochlorothiazide Allergy Unknown Verified 04/26/20 21:40 influenza virus vaccine, Allergy Unknown Verified 04/26/20 21:40 specific isosorbide [From Imdur] Allergy Unknown Verified 04/26/20 21:40 meperidine HCl [From Demerol] Allergy Anaphylaxis Verified 04/26/20 21:40 nifedipine [From Procardia] Allergy Unknown Verified 04/26/20 21:40 nitroglycerin Allergy Unknown Verified 04/26/20 21:40 paroxetine [From Paxil] Allergy Unknown Verified 04/26/20 21:40 paroxetine HCl [From Paxil] Allergy Unknown Verified 04/26/20 21:40 sertraline HCl [From Zoloft] Allergy Unknown Verified 04/26/20 21:40 simvastatin [From Zocor] Allergy Unknown Verified 04/26/20 21:40 Bvhpokn-Iya-Sia Reductase Allergy Unknown Verified 04/26/20 21:40 Inhibitor venom-honey bee Allergy Anaphylaxis Verified 04/26/20 21:40 [bee venom (honey bee)] zolpidem [From Ambien] Allergy Unknown Verified 04/26/20 21:40 zolpidem tartrate Allergy Unknown Verified 04/26/20 21:40 [From Ambien] lactose AdvReac Nausea & Verified 04/26/20 21:40 Vomiting & Diarrhea hay Allergy Dyspnea Uncoded 04/26/20 21:40 lysol Allergy Dyspnea Uncoded 04/26/20 21:40 Physical Exam Vitals: Vital Signs Temp Pulse Resp BP Pulse Ox 04/28/20 08:00 97.6 F 74 18 176/83 97 04/28/20 04:00 97.6 F 63 18 144/73 95 04/28/20 00:00 97.7 F 68 18 165/78 97 04/27/20 20:29 97 04/27/20 20:00 98.2 F 77 20 153/75 94 L 04/27/20 16:00 74 18 169/78 95 04/27/20 13:57 74 04/27/20 12:00 74 16 166/85 100 Intake and Output 04/27/20 04/28/20 04/28/20 22:59 06:59 14:59 Intake Total 480 400 Balance 480 400 Intake: Oral 480 400 Other: Voiding Method Toilet Toilet Toilet # Voids 1 1 Weight 112.1 kg PHYSICAL EXAMINATION: This is a 59-year-old female in no apparent distress at the time of my examination. VITAL SIGNS: Blood pressure 181/80, heart rate 78, respirations 18, temp 97.6F. Patient is 97 % on 3 liters via nasal cannula. HEENT: Head is atraumatic, normocephalic. Pupils are equal, round. Sclerae anicteric. Conjunctivae are clear. Mucous membranes of the mouth are moist. Neck is supple. There is no elevated jugular venous pressure. No carotid bruit is h eard. CHEST EXAMINATION: Reveal diminished air entry bilaterally. No wheezes rales or rhonchi. Respirations even and nonlabored. HEART EXAMINATION: Heart regular, positive S1 and S2. No S3. No S4. No clicks, rubs or murmurs. ABDOMEN: Midline abdominal incision with the dressing dry and intact, colostomy with brown liquid stool noted. EXTREMITIES: 2+ peripheral pulses with no evidence of peripheral edema and no calf tenderness noted. NEUROLOGIC EXAMINATION: Patient is awake, alert and oriented x3. Results 04/27/20 07:10 04/27/20 07:10 Current Medications Generic Name Dose Route Start Last Admin Trade Name Freq PRN Reason Stop Dose Admin Acetaminophen 650 mg 04/27/20 07:23 Acetaminophen Tab 325 Mg Tab PO Q6HR PRN Fever and/ or Pain Albuterol Sulfate 2.5 mg 04/27/20 07:23 Albuterol Nebulized 2.5 Mg/3 Ml INHALATION RT-Q6H PRN Shortness Of Breath Atorvastatin Calcium 10 mg 04/29/20 09:00 Atorvastatin 10 Mg Tab PO MOFR ROSANNE Budesonide/Formoterol Fumarate 2 puff 04/27/20 08:00 04/28/20 08:06 Symbicort 160-4.5 Mcg Inhaler INHALATION 2 puff RT-BID ROSANNE Administration Diltiazem HCl 240 mg 04/27/20 21:00 04/27/20 20:25 Diltiazem Cd 240 Mg Cap.Er.24h PO 240 mg HS ROSANNE Administration Sodium Chloride 1,000 mls @ 80 mls/hr 04/26/20 23:45 04/28/20 03:58 Saline 0.9% IV 80 mls/hr .[id number] ROSANNE Administration Magnesium Sulfate/Dextrose 1 100 mls @ 100 mls/hr 04/28/20 10:30 gm/ IV Solution IVPB 04/28/20 12:29 Q1H ROSANNE Insulin Detemir 40 unit 04/27/20 21:00 04/27/20 20:26 Insulin Detemir (Levemir) 100 Unit/Ml Syr SQ 40 unit HS ROSANNE Administration Loratadine 10 mg 04/27/20 21:00 04/27/20 20:25 Loratadine 10 Mg Tab PO 10 mg HS ROSANNE Administration Losartan Potassium 50 mg 04/27/20 09:00 04/28/20 08:31 Losartan 50 Mg Tab PO 50 mg BID ROSANNE Administration Miscellaneous Information 1 each 04/27/20 07:24 Magnesium Replacement Protocol 1 Each Misc MISCELLANE DAILY PRN Per Protocol Protocol Morphine Sulfate 4 mg 04/26/20 23:38 Morphine Sulfate 4 Mg/Ml Syringe IV Q4HR PRN Severe Pain Naloxone HCl 0.2 mg 04/26/20 23:38 Naloxone 0.4 Mg/Ml 1 Ml Vial IV Q2M PRN Opioid Reversal Dulaglutide [ 1.5 mg 04/29/20 09:00 Trulicity] 1.5 Mg/0. SQ 5 Ml Pen MO ROSANNE Nystatin 1 applic 04/27/20 07:23 Nystatin 100,000 Unit/Gm Powd 15 Gm TOPICAL DAILY PRN Rash Ondansetron HCl 4 mg 04/26/20 23:38 04/28/20 00:51 Ondansetron 4 Mg/2 Ml Vial IVP 4 mg Q8HR PRN Administration Nausea And Vomiting Polyethylene Glycol 17 gm 04/27/20 09:00 04/28/20 08:31 Polyethylene Glycol 3350 17 Gm Powd.Pack PO 17 gm DAILY ROSANNE Administration Ropinirole HCl 0.25 mg 04/27/20 09:00 04/28/20 08:31 Ropinirole Hcl 0.25 Mg Tab PO 0.25 mg TID ROSANNE Administration Ropinirole HCl 1 mg 04/27/20 09:00 04/28/20 08:31 Ropinirole Hcl 1 Mg Tab PO 1 mg TID ROSANNE Administration Senna/Docusate Sodium 1 each 04/27/20 21:00 04/27/20 20:25 Sennosides-Docusate Sodium 1 Each Tab PO 1 each HS ROSANNE Administration Ticagrelor 90 mg 04/27/20 09:00 04/28/20 08:31 Ticagrelor 90 Mg Tab PO 90 mg BID ROSANNE Administration Intake and Output 04/27/20 04/28/20 04/28/20 22:59 06:59 14:59 Intake Total 480 400 Balance 480 400 Intake: Oral 480 400 Other: Voiding Method Toilet Toilet Toilet # Voids 1 1 Weight 112.1 kg 04/27/20 07:10 04/27/20 07:10 Assessment and Plan Assessment: #1 postoperative nausea and vomiting #2 recent colectomy with colostomy placement #3 CAD with prior PCI involving the LAD #4 hypertension #5 hyperlipidemia #6 diabetes mellitus #7 COPD #8 noncompliance Plan: From cardiology's perspective we will stop Brilinta and start the patient on aspirin 81 mg by mouth daily. We will add hydralazine 50 mg by mouth twice a day for blood pressure control. We will order 2-D echo with Doppler study to assess cardiac structure and function. We'll schedule patient for Lexiscan MPI to rule out underlying ischemia. Further recommendations to follow. [employer] WORK[employer] note has been reviewed, I agree with a documented findings and plan of care. Patient was seen and examined.
[2020-04-28] MEDS: MAGNESIUM SULFATE-D5W PMX 1 GM in DEXTROSE/WATER 1 100ML.BAG IVPB SCH ×2 (12:04→13:20)
[2020-04-28] MEDS: ASPIRIN 81 MG PO SCH (12:04)
[2020-04-28] MEDS: hydrALAZINE HCL 50 MG TAB PO SCH ×2 (12:04→20:48)
[2020-04-28 12:14] LABS: Glucose,Whole Blood 128 mg/dL (75-99)
--- NOTE | 2020-04-28 15:47 | P.HPIM ---
History of Present Illness H&P Date: 04/27/20 59-year-old female Patient with history of COPD/asthma, CVA/TIA, diabetes mellitus, hypertension, hyperlipidemia and CAD, presents the ED complaining of having intermittent nausea and vomiting since yesterday, and left-sided chest pain that began this afternoon. Patient states that she was just discharged from the hospital. Patient had a colectomy with colostomy performed by Dr. Ceron (general surgery) 5 days ago. Patient also states that she has had left- sided abdominal pain since her surgery. Patient admits to feeling dyspneic, but she states that she has chronic dyspnea, and she denies any increase or change in her dyspnea. Patient denies trauma or injury, fever or chills, headache, f ocal neuro deficit, neck/arm/jaw/back pain, pleuritic pain, cough or cold symptoms, palpitations, dizziness, decreased her bloody ostomy output, dysuria or urinary symptoms, decreased urine output, leg or swelling or pain, or any other symptoms or complaints. Patient states that she changed her colostomy bag just prior to arrival to the ED tonight. Review of Systems REVIEW OF SYSTEMS: CONSTITUTIONAL: No fever, no malaise, no fatigue. HEENT: No recent visual problems or hearing problems. Denied any sore throat. CARDIOVASCULAR: No chest pain, orthopnea, PND, no palpitations, no syncope. PULMONARY: No shortness of breath, no cough, no hemoptysis. GASTROINTESTINAL: As per HPI. NEUROLOGICAL: No headaches, no weakness, no numbness. HEMATOLOGICAL: Denies any bleeding or petechiae. GENITOURINARY: Denies any burning micturition, frequency, or urgency. MUSCULOSKELETAL/RHEUMATOLOGICAL: Denies any joint pain, swelling, or any muscle pain. ENDOCRINE: Denies any polyuria or polydipsia. The rest of the 14-point review of systems is negative. Past Medical History Past Medical History: Asthma, COPD, CVA/TIA, Diabetes Mellitus, GERD/Reflux, Hearing Disorder / Deafness, Hyperlipidemia, Hypertension, Seizure Disorder, Sleep Apnea/CPAP/BIPAP, Thyroid Disorder Additional Past Medical History / Comment(s): additional hx: right bundle branch block,barretts esophagus, migraines, deanna hearing aids, lung nodules, fatty liver, pulmonary hypertension, heart murmur,obesity, IBS, RLS, arthritis, ADHD, DJD, anemia, lactose intolerance; last seizure 21 years ago, kidney stones x2 History of Any Multi-Drug Resistant Organisms: None Reported Past Surgical History: Bowel Resection, Cholecystectomy, Hysterectomy Additional Past Surgical History / Comment(s): breast biopsy,esophageal surgery - 2002 Past Anesthesia/Blood Transfusion Reactions: No Reported Reaction Past Psychological History: Anxiety, Depression Smoking Status: Never smoker Past Alcohol Use History: None Reported Past Drug Use History: None Reported - Past Family History Mother History Unknown: Yes Family Medical History: Congestive Heart Failure (CHF), Myocardial Infarction ([place]) Additional Family Medical History / Comment(s): 77 Father History Unknown: Yes Family Medical History: COPD, Myocardial Infarction ([place]) Additional Family Medical History / Comment(s): at 56 Sister(s) History Unknown: Yes Family Medical History: Myocardial Infarction ([place]) Additional Family Medical History / Comment(s): at 56 Brother(s) Family Medical History: Cancer Additional Family Medical History / Comment(s): colon cancer Medications and Allergies Home Medications Medication Instructions Recorded Confirmed Type Loratadine [Claritin] 10 mg PO HS 06/09/15 04/26/20 History rOPINIRole HCL [Requip Xl] 4 mg PO HS 06/09/15 04/26/20 History Budesonide-Formot 160-4.5 Mcg 2 puff INHALATION RT-BID 03/17/16 04/26/20 History [Symbicort 160-4.5 Mcg Inhaler] Albuterol Sulfate [Proair Hfa] 1 - 2 puff INHALATION RT-Q6H PRN 08/10/18 04/26/20 History Ticagrelor [Brilinta] 90 mg PO BID #60 tab 08/12/18 04/26/20 Rx Atorvastatin [Lipitor] 10 mg PO MOFR 04/19/20 04/26/20 History Dulaglutide [Trulicity] 1.5 mg SQ MO 04/19/20 04/26/20 History EPINEPHrine (Auto Inject) [Epipen] 0.3 mg IM ONCE PRN 04/19/20 04/26/20 History Insulin Glargine,Hum.rec.anlog 40 unit SQ HS 04/19/20 04/26/20 History [Lantus Solostar] Losartan [Cozaar] 50 mg PO BID 04/19/20 04/26/20 History Miconazole Nitrate [Lotrimin AF 1 applic TOPICAL DAILY PRN 04/19/20 04/26/20 History Powder] Sennosides/Docusate Sodium [Senna 1 tab PO HS 04/19/20 04/26/20 History Plus 8.6-50 mg Tablet] metFORMIN HCL [Glucophage] 500 mg PO BID 04/19/20 04/26/20 History Acetaminophen Tab [Tylenol] 650 mg PO Q6HR PRN tab 04/25/20 04/26/20 Rx Diltiazem Cd [Cardizem CD] 240 mg PO HS 30 Days #30 cap.er.24h 04/25/20 04/26/20 Rx polyethylene glycoL 3350 [Miralax] 17 gm PO DAILY 30 Days #30 04/25/20 04/26/20 Rx powd.pack Levofloxacin [Levaquin] 750 mg PO HS 04/26/20 04/26/20 History Allergies Allergy/AdvReac Type Severity Reaction Status Date / Time ammonia Allergy Unknown Verified 04/26/20 21:40 barium sulfate Allergy Unknown Verified 04/26/20 21:40 dulaglutide [From Trulicity] Allergy Dyspnea Verified 04/26/20 21:40 exenatide [From Byetta] Allergy Unknown Verified 04/26/20 21:40 feathers Allergy Unknown Verified 04/26/20 21:40 fexofenadine HCl Allergy Unknown Verified 04/26/20 21:40 [From Elena] hydrochlorothiazide Allergy Unknown Verified 04/26/20 21:40 influenza virus vaccine, Allergy Unknown Verified 04/26/20 21:40 specific isosorbide [From Imdur] Allergy Unknown Verified 04/26/20 21:40 meperidine HCl [From Demerol] Allergy Anaphylaxis Verified 04/26/20 21:40 nifedipine [From Procardia] Allergy Unknown Verified 04/26/20 21:40 nitroglycerin Allergy Unknown Verified 04/26/20 21:40 paroxetine [From Paxil] Allergy Unknown Verified 04/26/20 21:40 paroxetine HCl [From Paxil] Allergy Unknown Verified 04/26/20 21:40 sertraline HCl [From Zoloft] Allergy Unknown Verified 04/26/20 21:40 simvastatin [From Zocor] Allergy Unknown Verified 04/26/20 21:40 Jiikwqk-Gpu-Euc Reductase Allergy Unknown Verified 04/26/20 21:40 Inhibitor venom-honey bee Allergy Anaphylaxis Verified 04/26/20 21:40 [bee venom (honey bee)] zolpidem [From Ambien] Allergy Unknown Verified 04/26/20 21:40 zolpidem tartrate Allergy Unknown Verified 04/26/20 21:40 [From Ambien] lactose AdvReac Nausea & Verified 04/26/20 21:40 Vomiting & Diarrhea hay Allergy Dyspnea Uncoded 04/26/20 21:40 lysol Allergy Dyspnea Uncoded 04/26/20 21:40 Physical Exam Vitals: Vital Signs Temp Pulse Pulse Resp BP BP Pulse Ox 04/27/20 13:57 74 04/27/20 12:00 74 16 166/85 100 04/27/20 08:00 97.6 F 71 18 154/81 98 04/27/20 01:14 98.6 F 74 18 161/84 99 04/27/20 00:20 98.1 F 04/26/20 23:37 74 18 153/82 98 04/26/20 22:00 73 18 04/26/20 21:01 97.9 F 83 20 129/72 96 Intake and Output 04/26/20 04/27/20 04/27/20 22:59 06:59 14:59 Intake Total 0 Balance 0 Intake: Oral 0 Other: Voiding Method Toilet Weight 113.398 kg 113.2 kg 113.2 kg General appearance: alert, in no apparent distress Head exam: Present: atraumatic, normocephalic Eye exam: Present: normal appearance, EOMI ENT exam: Present: mucous membranes moist Neck exam: Present: other (Trachea is in midline) Respiratory exam: Present: normal lung sounds bilaterally. Absent: respiratory distress, wheezes, rales, rhonchi, stridor, chest wall tenderness Cardiovascular Exam: Present: regular rate, normal rhythm, normal heart sounds, other (Normal radial pulses bilaterally) GI/Abdominal exam: Present: soft, normal bowel sounds (Obese abdomen; colostomy with bag in place; moderate diffuse left-sided tenderness; surgical wounds have kusum in place and do not have any evidence of infection or cellulitis), other (Moderate diffuse left-sided abdominal tenderness; obese abdomen; colostomy with bag in place; surgical wounds have kusum in place and do not show any evidence of infection or cellulitis). Absent: guarding, rebound Extremities exam: Present: other (Negative Homans sign bilaterally). Absent: tenderness, pedal edema, calf tenderness Neurological exam: Present: alert, oriented X3. Absent: motor sensory deficit Psychiatric exam: Present: normal affect, normal mood Skin exam: Present: warm, dry, intact, normal color Results CBC & Chem 7: 04/27/20 07:10 04/27/20 07:10 Labs: Abnormal Lab Results - Last 24 Hours (Table) 04/26/20 04/26/20 04/27/20 Range/Units 21:26 21:30 07:10 Hgb 10.9 L 10.5 L (11.4-16.0) gm/dL Hct 33.5 L 31.9 L (34.0-46.0) % MCV 78.8 L 79.7 L (80.0-100.0) fL RDW 16.1 H 15.8 H (11.5-15.5) % Sodium 134 L (137-145) mmol/L Glucose 196 H (74-99) mg/dL POC Glucose (mg/dL) (75-99) mg/dL Magnesium 1.5 L (1.6-2.3) mg/dL Total Protein 5.8 L (6.3-8.2) g/dL Albumin 3.1 L (3.5-5.0) g/dL 04/27/20 04/27/20 Range/Units 07:10 12:08 Hgb (11.4-16.0) gm/dL Hct (34.0-46.0) % MCV (80.0-100.0) fL RDW (11.5-15.5) % Sodium (137-145) mmol/L Glucose 170 H (74-99) mg/dL POC Glucose (mg/dL) 150 H (75-99) mg/dL Magnesium (1.6-2.3) mg/dL Total Protein 5.3 L (6.3-8.2) g/dL Albumin 2.9 L (3.5-5.0) g/dL Assessment and Plan Assessment: 1. Abdominal pain/vomiting/ileus 2. Chest pain/CAD; patient takes Brilinta 3. Anemia; patient is currently on antiplatelet therapy; we will monitor CBC closely 4. Hypertension; Cardizem 240 mg daily; losartan 50 mg daily 5. Hyperlipidemia; Lipitor 20 mg by mouth daily at bedtime 6. Asthma/COPD; not in exacerbation; continue with home inhaler therapy with albuterol sulfate, Symbicort 7. Diabetes mellitus type 1; continue with home dose of Trulicity, Lantus Solo*; hold metformin while in hospital and monitor Accu-Cheks every before meals and at bedtime with insulin sliding scale DVT prophylaxis; SCDs CODE STATUS; full code
[2020-04-28 16:26] LABS: Glucose,Whole Blood 162 mg/dL (75-99)
[2020-04-28] MEDS ORDERED: CYCLOBENZAPRINE 5 MG TAB PO PRN (17:45)
[2020-04-28 19:48] LABS: Glucose,Whole Blood 194 mg/dL (75-99)
[2020-04-28] MEDS: DILTIAZEM CD 240 MG CAP.ER.24H PO SCH (20:48)
[2020-04-28] MEDS: LORATADINE 10 MG TAB PO SCH (20:48)
[2020-04-28] MEDS: SENNOSIDES-DOCUSATE SODIUM 1 EACH TAB PO SCH (20:48)
[2020-04-28] MEDS: INSULIN DETEMIR (LEVEMIR) 100 UNIT/ML SYR SQ SCH (20:51)
[2020-04-29 04:25] LABS: Glucose,Whole Blood 66 mg/dL (75-99)
[2020-04-29] MEDS ORDERED: DEXTROSE 50% SYRINGE 50 ML IVP STA (04:31)
[2020-04-29 04:59] LABS: Glucose,Whole Blood 146 mg/dL (75-99)
[2020-04-29] MEDS ORDERED: CAFFEINE CITRATE 60 MG/3 ML VIAL IV PRN (06:00)
[2020-04-29] MEDS ORDERED: REGADENOSON 0.4 MG/5 ML SYRINGE IV PRN (06:00)
[2020-04-29] MEDS ORDERED: AMINOPHYLLINE 500 MG/20 ML VIAL IV PRN (06:00)
[2020-04-29 06:14] LABS: Glucose,Whole Blood 102 mg/dL (75-99)
--- NOTE | 2020-04-29 08:04 | P.PN ---
Subjective Progress Note Date: 04/28/20 Principal diagnosis: Abdominal ileus Chest pain 59-year-old female patient presented to the hospital with complaining of intermittent nausea and vomiting; patient is admitted to the hospital for abdominal ileus 04/28/2020 Patient is seen and evaluated in room at bedside; had 2 episodes of CP this morning with marked elevation in BP; no c/o CP at this time Patient has been evaluated by cardiology and recommending stop Brilinta and start the patient on aspirin 81 mg by mouth daily; add hydralazine 50 mg by mouth twice a day for blood pressure control; 2-D echo with Doppler study to assess cardiac structure and function; schedule patient for Lexiscan MPI to rule out underlying ischemia. Surgery is following for Ileus and not recommending any sugical intervention Objective - Vital Signs Vital signs: Vital Signs Temp 98.0 F 04/28/20 12:00 Pulse 75 04/28/20 12:00 Resp 18 04/28/20 14:00 BP 179/87 04/28/20 12:00 Pulse Ox 96 04/28/20 12:00 Intake & Output 04/27/20 04/28/20 04/28/20 18:59 06:59 18:59 Intake Total 1085 1280 Output Total 150 Balance 1085 1130 Weight 113.2 kg 112.1 kg Intake: Intake, IV Titration 400 Amount Sodium Chloride 0.9% 1, 400 000 ml @ 80 mls/hr IV . [id number] [facility] Rx#:[id number] Oral 1085 880 Output: Stool 150 Other: Voiding Method Toilet Toilet # Voids 1 1 3 - Exam General appearance: alert, in no apparent distress Head exam: Present: atraumatic, normocephalic Eye exam: Present: normal appearance, EOMI ENT exam: Present: mucous membranes moist Neck exam: Present: other (Trachea is in midline) Respiratory exam: Present: normal lung sounds bilaterally. Absent: respiratory distress, wheezes, rales, rhonchi, stridor, chest wall tenderness Cardiovascular Exam: Present: regular rate, normal rhythm, normal heart sounds, other (Normal radial pulses bilaterally) GI/Abdominal exam: Present: soft, normal bowel sounds (Obese abdomen; colostomy with bag in place; moderate diffuse left-sided tenderness; surgical wounds have kusum in place and do not have any evidence of infection or cellulitis), other (Moderate diffuse left-sided abdominal tenderness; obese abdomen; colostomy with bag in place; surgical wounds have kusum in place and do not show any evidence of infection or cellulitis). Absent: guarding, rebound Extremities exam: Present: other (Negative Homans sign bilaterally). Absent: tenderness, pedal edema, calf tenderness Neurological exam: Present: alert, oriented X3. Absent: motor sensory deficit Psychiatric exam: Present: normal affect, normal mood Skin exam: Present: warm, dry, intact, normal color - Labs CBC & Chem 7: 04/27/20 07:10 04/27/20 07:10 Labs: Abnormal Lab Results - Last 24 Hours (Table) 04/27/20 04/27/20 04/28/20 Range/Units 16:38 19:48 06:16 POC Glucose (mg/dL) 185 H 187 H (75-99) mg/dL Magnesium 1.5 L (1.6-2.3) mg/dL 04/28/20 Range/Units 12:12 POC Glucose (mg/dL) 128 H (75-99) mg/dL Magnesium (1.6-2.3) mg/dL Assessment and Plan Assessment: 1. Abdominal pain/vomiting/ileus 2. Chest pain/CAD; patient takes Brilinta 3. Anemia; patient is currently on antiplatelet therapy; we will monitor CBC closely 4. Hypertension; Cardizem 240 mg daily; losartan 50 mg daily 5. Hyperlipidemia; Lipitor 20 mg by mouth daily at bedtime 6. Asthma/COPD; not in exacerbation; continue with home inhaler therapy with al buterol sulfate, Symbicort 7. Diabetes mellitus type 1; continue with home dose of Trulicity, Lantus Solo*; hold metformin while in hospital and monitor Accu-Cheks every before meals and at bedtime with insulin sliding scale DVT prophylaxis; SCDs CODE STATUS; full code
[2020-04-29] MEDS: hydrALAZINE HCL 50 MG TAB PO SCH ×2 (08:23→21:19)
[2020-04-29] MEDS: LOSARTAN 50 MG TAB PO SCH ×2 (08:23→21:20)
[2020-04-29] MEDS: ASPIRIN 81 MG PO SCH (08:23)
[2020-04-29] MEDS: polyethylene glycoL 3350 17 GM POWD.PACK PO SCH (08:23)
[2020-04-29] MEDS: SYMBICORT 160-4.5 MCG INHALER INHALATION SCH ×2 (08:52→19:34)
[2020-04-29] MEDS ORDERED: ATORVASTATIN 10 MG TAB PO SCH (09:00)
--- NOTE | 2020-04-29 10:54 | ECHOF ---
Referral Reason: MEASUREMENTS -------- HEIGHT: 147.3 cm WEIGHT: 112.0 kg BP: 149/72 RVIDd: 3.0 cm (< 3.3) IVSd: 1.6 cm (0.6 - 1.1) LVIDd: 4.7 cm (3.9 - 5.3) LVPWd: 1.7 cm (0.6 - 1.1) IVSs: 2.0 cm LVIDs: 3.4 cm LVPWs: 1.5 cm LAESV Index (A-L): 32.53 ml/m Ao Diam: 3.0 cm (2.0 - 3.7) AV Cusp: 2.5 cm (1.5 - 2.6) MV EXCURSION: 14.270 mm (> 18.000) MV EF SLOPE: 68 mm/s (70 - 150) EPSS: 0.4 cm MV E Mj: 1.31 m/s MV DecT: 227 ms MV A Mj: 0.92 m/s MV E/A Ratio: 1.43 RAP: 5.00 mmHg RVSP: 28.76 mmHg FINDINGS -------- Sinus rhythm. This was a technically adequate study. The left ventricular size is normal. There is moderate concentric left ventricular hypertrophy. O verall left ventricular systolic function is low-normal with, an EF between 50 - 55 %. The diastoli c filling pattern is normal for the age of the patient 20.38. The right ventricle is normal in size. LA is midly dilated 29-33ml/m2. The right atrial size is normal. Interatrial and interventricular septum intact. There is no evidence of aortic regurgitation. There is no evidence of aortic stenosis. Mild mitral regurgitation is present. Mild tricuspid regurgitation present. There is no evidence of pulmonary hypertension. The right v entricular systolic pressure, as measured by Doppler, is 28.76mmHg. There is no pulmonic regurgitation present. The aortic root size is normal. IVC Not well visulized. There is no pericardial effusion. CONCLUSIONS -------- 1. The left ventricular size is normal. 2. There is moderate concentric left ventricular hypertrophy. 3. Overall left ventricular systolic function is low-normal with, an EF between 50 - 55 %. 4. LA is midly dilated 29-33ml/m2. 5. Mild mitral regurgitation is present. 6. Mild tricuspid regurgitation present. [employer] MANAGER: Gema Baker RDCS
--- NOTE | 2020-04-29 11:44 | EST ---
EXERCISE STRESS AGE: 59 SEX: Female HT: 59" WT: 247 PROTOCOL: Lexiscan Cardiolite STAGE: DURATION OF EXERCISE: HEART RATE REST: 71 BLOOD PRESSURE REST: 167/86 MAXIMUM HEART RATE ACHIEVED: 88 MAXIMUM BLOOD PRESSURE: 181/83 85% MPHR: 135 100% MPHR: 159 METS: INDICATIONS: Chest pain. CLINICAL INFORMATION: STRESS DATA: Heart rate 71, pressure is 167/86 mmHg. Baseline EKG showed sinus mechanism. 0.4 mg of Lexiscan given over 15 seconds per protocol. Max heart rate was 88 beats per minute. Maximum pressure was 181/83 mmHg. Clinically, the patient did not have any symptoms and the EKG did not show any significant ST or T-wave abnormalities concerning for ischemia. CONCLUSION: 1. Nondiagnostic electrocardiogram stress testing in response to Lexiscan. 2. Please follow up on the Cardiolite portion on a separate report. MMODL / IJN: [id number] /
[2020-04-29 11:45] LABS: Glucose,Whole Blood 63 mg/dL (75-99)
--- NOTE | 2020-04-29 12:02 | P.PN ---
<Na Collazo - Last Filed: 04/29/20 11:50> Subjective Progress Note Date: 04/29/20 CHIEF COMPLAINT: Nausea, vomiting, abdominal pain and chest pain HISTORY OF PRESENT ILLNESS: Patient is being followed for ileus. She reports that her nausea and vomiting have resolved. She is reporting that she is hungry and currently on a full liquid diet. She is having stool through her colostomy. She was just recently discharged from the hospital after having a colonic obstruction secondary to descending colon constipation and she is status post partial colectomy with end colostomy, lysis of adhesions and mobilization sp lenic flexure. Surgery completed on 04/21/[address] Ceron. Apparently patient had poor living conditions at home. She did not have the right bed at home. She did not have the help at home from her family that she thought she would have after discharge. Patient reports feeling better today. Denies any abdominal pain or chest pain. She underwent a stress test this morning. Results are pending. She also had been complaining of blood leaking from her incision site at home. That has improved, at this time there is serosanguineous drainage noted on the dressing. The dressing has been changed twice since 5:00 this morning. She is working with physical therapy and occupational therapy regarding possible placement. Patient is afebrile. Cardiology has discontinued the Brilenta and has placed her on aspirin 81 mg daily. PHYSICAL EXAM: VITAL SIGNS: Reviewed. GENERAL: Well-developed in no acute distress. HEENT: No sclera icterus. Extraocular movements grossly intact. Moist buccal mucosa. Head is atraumatic, normocephalic. ABDOMEN: Soft. Nontender. Obese. Stoma pink. Small amount of Stool present in colostomy bag. Incision clean dry and intact dressing serosanguineous drainage noted NEUROLOGIC: Alert and oriented. Cranial nerves II through XII grossly intact. ASSESSMENT: 1. Postoperative ileus resolving 2. Nausea and vomiting resolved 3. Chest pain underwent stress test this morning. Followed by cardiology. PLAN: -Nursing staff to monitor and change dressing -Continue supportive care -Encouraged patient to increase activity -Patient to work with PT OT -Patient being evaluated for possible rehab placement -No surgical intervention planned Physician Feeder Tender note has been reviewed by physician. Signing provider agrees with the documented findings, assessment, and plan of care. Objective - Vital Signs Vital signs: Vital Signs Temp 98.2 F 04/29/20 08:00 Pulse 70 04/29/20 08:00 Resp 18 04/29/20 08:00 BP 154/80 04/29/20 08:00 Pulse Ox 94 L 04/29/20 08:00 Intake & Output 04/28/20 04/29/20 04/29/20 18:59 06:59 18:59 Intake Total 1280 240 Output Total 150 150 Balance 1130 240 -150 Weight 112.3 kg 112.3 kg Intake: Intake, IV Titration 400 Amount Sodium Chloride 0.9% 1, 400 000 ml @ 80 mls/hr IV . [id number] [facility] Rx#:[id number] Oral 880 240 Output: Stool 150 150 Other: Voiding Method Toilet Toilet # Voids 4 1 1 - Labs CBC & Chem 7: 04/27/20 07:10 04/27/20 07:10 Labs: Abnormal Lab Results - Last 24 Hours (Table) 04/28/20 04/28/20 04/28/20 Range/Units 12:12 16:25 19:46 POC Glucose (mg/dL) 128 H 162 H 194 H (75-99) mg/dL 04/29/20 04/29/20 04/29/20 Range/Units 04:23 04:57 06:13 POC Glucose (mg/dL) 66 L 146 H 102 H (75-99) mg/dL 04/29/20 Range/Units 11:43 POC Glucose (mg/dL) 63 L (75-99) mg/dL <Rosas Ceron - Last Filed: 04/29/20 13:52> Subjective As above. Patient returned with complaints of nausea and vomiting as well as abdominal pain. Patient has significant serous drainage from her midline incision. Patient states she has a history of congestive heart failure. No diuretics currently. Stress test done this morning. 2 kusum removed at 2 separate locations along her midline incision were serous fluid was noted to be draining from. Area probed with cotton-tip applicator. Fascia by palpation appears intact. Both wound sites packed with 4 x 4 cotton gauze. Continue local wound care. Diuretics per cardiology. Objective - Vital Signs Vital signs: Vital Signs Temp 98.2 F 04/29/20 08:00 Pulse 70 04/29/20 08:00 Resp 18 04/29/20 08:00 BP 154/80 04/29/20 08:00 Pulse Ox 94 L 04/29/20 08:00 Intake & Output 04/28/20 04/29/20 04/29/20 18:59 06:59 18:59 Intake Total 1280 240 Output Total 150 150 Balance 1130 240 -150 Weight 112.3 kg 112.3 kg Intake: Intake, IV Titration 400 Amount Sodium Chloride 0.9% 1, 400 000 ml @ 80 mls/hr IV . [id number] [facility] Rx#:[id number] Oral 880 240 Output: Stool 150 150 Other: Voiding Method Toilet Toilet # Voids 4 1 1 - Labs CBC & Chem 7: 04/27/20 07:10 04/27/20 07:10 Labs: Abnormal Lab Results - Last 24 Hours (Table) 04/28/20 04/28/20 04/29/20 Range/Units 16:25 19:46 04:23 POC Glucose (mg/dL) 162 H 194 H 66 L (75-99) mg/dL 04/29/20 04/29/20 04/29/20 Range/Units 04:57 06:13 11:43 POC Glucose (mg/dL) 146 H 102 H 63 L (75-99) mg/dL
[2020-04-29 12:14] LABS: Glucose,Whole Blood 95 mg/dL (75-99)
--- NOTE | 2020-04-29 12:16 | NM ---
EXAMINATION TYPE: NM stress lexiscan cardiolite DATE OF EXAM: 04/29/2020 COMPARISON: NONE HISTORY: Chest pain TECHNIQUE: After the intravenous administration of 10.3 mCi Tc 99m Sestamibi - Cardiolite resting SP ECT images acquired 45 minutes post injection. The patient received 0.4mg Lexiscan, 25.9 mCi Tc 99m Sestamibi - Stress images obtained [address] injection FINDINGS: Review of stress and rest SPECT images demonstrates mild decreased uptake along the anterior wall the left ventricle on stress as compared to rest images towards the base of the heart. Gated analysis s hows normal wall motion with an estimated left ventricular ejection fraction of 61 %. IMPRESSION: Pharmacologically induced left ventricular myocardial ischemia suspected along the anterior wall left ventricle towards the base.
--- NOTE | 2020-04-29 14:19 | P.PN ---
Subjective HISTORY OF PRESENTING ILLNESS This is a pleasant 59-year-old female patient who is followed in the past with Dr. Hernandez. She has a known history of hypertension, hyperlipidemia, diabetes, COPD, CAD with prior cath in 2019 which showed critical lesion involving the mid LAD, mild disease involving the left main and the proximal LAD. At that time she underwent stent placement to the mid LAD. She has not followed up in our office since that time. According to her she been doing well. She was recently admitted to the hospital with a bowel obstruction and underwent colectomy with colostomy placement. She was discharged on the eighth and subsequently readmitted later that day with complaints of nausea, vomiting, abdominal discomfort and chest pain. Troponins were negative 3. EKG showed no evidence of ischemia. CT of the chest showed no evidence of pulmonary embolism with right lower lobe air space infiltrate and atelectasis, right pleural effusion, borderline aneurysmal ascending aorta measuring 3.[address] of the abdomen and pelvis showed dilated proximal jejunum suggestive of ileus, no obstructing lesion seen. So showed infiltrate and atelectasis and pleural fluid at the right lung base. She is being followed by surgery. She currently is being maintained on Lipitor 10 mg by mouth twice a week, Cardizem 140 mg by m outh daily at bedtime, Levemir, Trulicity, losartan 50 mg by mouth twice a day, and Brilinta 80 mg by mouth twice a day. She states she was previously on aspirin but this was held for surgery. Her magnesium came back to be low this morning at 1.5 in the face. Her blood pressure has been elevated. On examination the patient is sitting up in a chair. She does not appear to be in any acute distress. Denies further chest Discomfort. She does state that her chest discomfort she had prior to admission did remind her what she experienced prior to her stent placement in 1999. She has occasional palpitations which is unchanged. She also has some dyspnea on exertion which she attributes to her COPD and is stable. 04/29/2020: Patient seen and examined. She denies any further chest pain or pressure. She admits that this may have been an esophageal spasm especially given her nausea and vomiting. REVIEW OF SYSTEMS At the time of my exam: CONSTITUTIONAL: Denies fever or chills. CARDIOVASCULAR: Denies chest pain, shortness of breath, orthopnea, PND or palpitations. RESPIRATORY: Denies cough. GASTROINTESTINAL: Denies abdominal pain, diarrhea, constipation, nausea or vomiting. MUSCULOSKELETAL: Denies myalgias. NEUROLOGIC: Denies numbness, tingling or weakness. ENDOCRINE: Denies fatigue, weight change, polydipsia or polyurina. GENITOURINARY: Denies burning, hematuria or urgency with micturation. HEMATOLOGIC: Denies history of anemia or bleeding. PHYSICAL EXAMINATION Blood pressure 154/80 heart rate 70 afebrile and maintaining oxygen saturation on 3 L nasal cannula. CONSTITUTIONAL: No apparent distress. HEENT: Head is normocephalic. Pupils are equal, round. Sclerae anicteric. Mucous membranes of the mouth are moist. No JVD. No carotid bruit. CHEST EXAMINATION: Lungs are clear to auscultation. No chest wall tenderness is noted on palpation or with deep breathing. HEART EXAMINATION: Regular rate and rhythm. S1, S2 heard. No murmurs, gallops or rub. ABDOMEN: Soft, nontender. Positive bowel sounds. EXTREMITIES: 2+ peripheral pulses, no lower extremity edema and no calf tenderness. NEUROLOGIC EXAMINATION: Patient is awake, alert and oriented x3. ASSESSMENT 1. Coronary artery disease with history of PCI of the mid LAD 2. Hypertension 3. Hyperlipidemia 4. Diabetes mellitus 5. Atypical chest pain with normal troponins. May possibly be related to esophageal spasm and has not recurred. Echocardiogram showing normal ejection fraction 50-55%. 6. Abnormal stress test. Lexiscan 04/29/20 interpreted as basal anterior wall ischemia. Images personally reviewed and appears normal perfusion by my interpretation and only basal anterior wall ischemia would not be likely anatomically. 7. Recent colectomy with postoperative nausea and vomiting, currently improved PLAN Patient's chest pain appears atypical and is now chest pain-free. Troponins normal and echocardiogram normal. Patient did have a Lexiscan performed which was read out as basal anterior wall ischemia. On personal review of images, this appears to be normal perfusion and basal anterior wall would be perfused by proximal LAD and would not make sense anatomically. We will continue to treat this patient medically. No further recommendations from a cardiology standpoint. Patient may be discharged home with outpatient follow-up in 1-2 weeks. Objective - Vital Signs Vital signs: Vital Signs Temp 98.2 F 04/29/20 08:00 Pulse 70 04/29/20 08:00 Resp 18 04/29/20 08:00 BP 154/80 04/29/20 08:00 Pulse Ox 94 L 04/29/20 08:00 Intake & Output 04/28/20 04/29/20 04/29/20 18:59 06:59 18:59 Intake Total 1280 240 Output Total 150 150 Balance 1130 240 -150 Weight 112.3 kg 112.3 kg Intake: Intake, IV Titration 400 Amount Sodium Chloride 0.9% 1, 400 000 ml @ 80 mls/hr IV . [id number] [facility] Rx#:[id number] Oral 880 240 Output: Stool 150 150 Other: Voiding Method Toilet Toilet # Voids 4 1 1 - Labs CBC & Chem 7: 04/27/20 07:10 04/27/20 07:10 Labs: Abnormal Lab Results - Last 24 Hours (Table) 04/28/20 04/28/20 04/29/20 Range/Units 16:25 19:46 04:23 POC Glucose (mg/dL) 162 H 194 H 66 L (75-99) mg/dL 04/29/20 04/29/20 04/29/20 Range/Units 04:57 06:13 11:43 POC Glucose (mg/dL) 146 H 102 H 63 L (75-99) mg/dL
[2020-04-29] MEDS: SODIUM CHLORIDE 0.9% 1,000 ML IV SCH (16:54)
[2020-04-29 17:02] LABS: Glucose,Whole Blood 95 mg/dL (75-99)
--- NOTE | 2020-04-29 19:18 | P.PN ---
Subjective Progress Note Date: 04/29/20 Principal diagnosis: Abdominal ileus Chest pain 59-year-old female patient presented to the hospital with complaining of intermittent nausea and vomiting; patient is admitted to the hospital for abdominal ileus 04/28/2020 Patient is seen and evaluated in room at bedside; had 2 episodes of CP this morning with marked elevation in BP; no c/o CP at this time Patient has been evaluated and recommending stop Brilinta and start the patient on aspirin 81 mg by mouth daily; add hydralazine 50 mg by mouth twice a day for blood pressure control; 2-D echo with Doppler study to assess cardiac structure and function; schedule patient for Lexiscan MPI to rule out underlying ischemia. Surgery is following for Ileus and not recommending any sugical intervention 04/29/2020 Patient is currently sitting in a chair comfortably. Denied any complaints of chest pain or shortness breath. Patient underwent Lexiscan stress test today interpreted as basal anterior wall ischemia. And it appears normal perfusion. Currently patient is asymptomatic. No further recommendations from cardiology standpoint. Patient has been having serous discharge from the surgical site and is being followed by general surgery. Continue to monitor and PT OT will be consulted. Nausea and vomiting improved and patient is able to tolerate and diet will be advanced. Patient has been afebrile. No complaints of dysuria or hematuria. Current medications reviewed. Objective - Vital Signs Vital signs: Vital Signs Temp 98.2 F 04/29/20 08:00 Pulse 75 04/29/20 16:00 Resp 18 04/29/20 16:00 BP 154/92 04/29/20 16:00 Pulse Ox 97 04/29/20 16:00 Intake & Output 04/28/20 04/29/20 04/29/20 18:59 06:59 18:59 Intake Total 1280 240 240 Output Total 150 150 Balance 1130 240 90 Weight 112.3 kg 112.3 kg Intake: Intake, IV Titration 400 Amount Sodium Chloride 0.9% 1, 400 000 ml @ 80 mls/hr IV . [id number] [facility] Rx#:[id number] Oral 880 240 240 Output: Stool 150 150 Other: Voiding Method Toilet Toilet # Voids 4 1 1 # Bowel Movements 1 - Exam General appearance: alert, in no apparent distress Head exam: Present: atraumatic, normocephalic Eye exam: Present: normal appearance, EOMI ENT exam: Present: mucous membranes moist Neck exam: Present: other (Trachea is in midline) Respiratory exam: Present: normal lung sounds bilaterally. Absent: respiratory distress, wheezes, rales, rhonchi, stridor, chest wall tenderness Cardiovascular Exam: Present: regular rate, normal rhythm, normal heart sounds, other (Normal radial pulses bilaterally) GI/Abdominal exam: Present: soft, normal bowel sounds (Obese abdomen; colostomy with bag in place; moderate diffuse left-sided tenderness; surgical wounds have kusum in place and do not have any evidence of infection or cellulitis), other (Moderate diffuse left-sided abdominal tenderness; obese abdomen; colostomy with bag in place; surgical wounds have kusum in place and do not show any evidence of infection or cellulitis). Absent: guarding, rebound Extremities exam: Present: other (Negative Homans sign bilaterally). Absent: tenderness, pedal edema, calf tenderness Neurological exam: Present: alert, oriented X3. Absent: motor sensory deficit Psychiatric exam: Present: normal affect, normal mood Skin exam: Present: warm, dry, intact, normal color - Labs CBC & Chem 7: 04/27/20 07:10 04/27/20 07:10 Labs: Abnormal Lab Results - Last 24 Hours (Table) 04/28/20 04/29/20 04/29/20 Range/Units 19:46 04:23 04:57 POC Glucose (mg/dL) 194 H 66 L 146 H (75-99) mg/dL 04/29/20 04/29/20 Range/Units 06:13 11:43 POC Glucose (mg/dL) 102 H 63 L (75-99) mg/dL Assessment and Plan Assessment: 1. Abdominal pain with recent history of partial colectomy with end colostomy due to colonic obstruction. postoperative/vomiting/ileus improved now. 2. Atypical Chest pain possibly related to is a physical spasms. CAD; patient takes Brilinta which is on hold currently 3. Anemia; patient is currently on antiplatelet therapy; we will monitor CBC closely 4. Hypertension; Cardizem 240 mg daily; losartan 50 mg daily 5. Hyperlipidemia; Lipitor 20 mg by mouth daily at bedtime 6. Asthma/COPD; not in exacerbation; continue with home inhaler therapy with albuterol sulfate, Symbicort 7. Diabetes mellitus type 1; continue with home dose of Trulicity, Lantus Solo*; hold metformin while in hospital and monitor Accu-Cheks every before meals and at bedtime with insulin sliding scale DVT prophylaxis; SCDs CODE STATUS; full code Time with Patient: Greater than 30
[2020-04-29] MEDS: LORATADINE 10 MG TAB PO SCH (21:19)
[2020-04-29] MEDS: DILTIAZEM CD 240 MG CAP.ER.24H PO SCH (21:19)
[2020-04-29] MEDS: SENNOSIDES-DOCUSATE SODIUM 1 EACH TAB PO SCH (21:19)
[2020-04-29 21:20] LABS: Glucose,Whole Blood 169 mg/dL (75-99)
[2020-04-29] MEDS: INSULIN DETEMIR (LEVEMIR) 100 UNIT/ML SYR SQ SCH (21:20)
[2020-04-30 06:30] LABS: Glucose,Whole Blood 70 mg/dL (75-99)
[2020-04-30 06:51] LABS: Glucose,Whole Blood 70 mg/dL (75-99)
[2020-04-30] MEDS: hydrALAZINE HCL 50 MG TAB PO SCH ×2 (08:14→21:08)
[2020-04-30] MEDS: polyethylene glycoL 3350 17 GM POWD.PACK PO SCH ×2 (08:14→17:30)
[2020-04-30] MEDS: ASPIRIN 81 MG PO SCH (08:14)
[2020-04-30] MEDS: LOSARTAN 50 MG TAB PO SCH ×2 (08:14→21:08)
[2020-04-30] MEDS: SODIUM CHLORIDE 0.9% 1,000 ML IV SCH ×2 (08:15→19:51)
[2020-04-30] MEDS: SYMBICORT 160-4.5 MCG INHALER INHALATION SCH ×2 (09:48→20:12)
--- NOTE | 2020-04-30 10:37 | P.PN ---
<KojersonNa - Last Filed: 04/30/20 11:28> Subjective Progress Note Date: 04/30/20 CHIEF COMPLAINT: Nausea, vomiting, abdominal pain and chest pain HISTORY OF PRESENT ILLNESS: Patient is being followed for ileus that is resolving. She is having stool through her ostomy. Denies any abdominal pain. Denies any nausea or vomiting. She reports that she is hungry and asking for her diet to be advanced. She had some hypoglycemia this morning. She did have abnormal stress test was evaluated by cardiology and they have cleared her for discharge. Patient had kusum removed from midline incision. She is still wilkerson ving some serous drainage. Per nurse to changing the dressing about every 12 hours. Patient has her hospital bed and home care arranged at home. Afebrile. PHYSICAL EXAM: VITAL SIGNS: Reviewed. GENERAL: Well-developed in no acute distress. HEENT: No sclera icterus. Extraocular movements grossly intact. Moist buccal mucosa. Head is atraumatic, normocephalic. ABDOMEN: Soft. Nontender. Obese. Stoma pink. Small amount of Stool present in colostomy bag. Patient's midline incision has 2 areas with marie present. There is serous drainage noted on dressing and pooling into her belly button NEUROLOGIC: Alert and oriented. Cranial nerves II through XII grossly intact. ASSESSMENT: 1. Postoperative ileus resolving 2. Nausea and vomiting resolved 3. Chest pain resolved. Abnormal stress test evaluated by cardiology and cleared for discharge PLAN: -Advance diet to regular, carb consistent heart healthy -Continue supportive care -Continue local wound care -Encouraged patient to increase activity -No surgical intervention planned Physician Healthcare Receptionist note has been reviewed by physician. Signing provider agrees with the documented findings, assessment, and plan of care. Objective - Vital Signs Vital signs: Vital Signs Temp 97.8 F 04/30/20 08:00 Pulse 84 04/30/20 08:00 Resp 20 04/30/20 08:00 BP 169/78 04/30/20 08:00 Pulse Ox 96 04/30/20 09:48 Intake & Output 04/29/20 04/30/20 04/30/20 18:59 06:59 18:59 Intake Total 240 Output Total 150 300 Balance 90 -300 Weight 112.3 kg 110.8 kg Intake: Oral 240 Output: Stool 150 300 Other: Voiding Method Toilet # Voids 1 1 # Bowel Movements 1 2 - Labs CBC & Chem 7: 04/27/20 07:10 04/27/20 07:10 Labs: Abnormal Lab Results - Last 24 Hours (Table) 04/29/20 04/29/20 04/30/20 Range/Units 11:43 21:03 06:28 POC Glucose (mg/dL) 63 L 169 H 70 L (75-99) mg/dL 04/30/20 Range/Units 06:49 POC Glucose (mg/dL) 70 L (75-99) mg/dL <Rosas Ceron - Last Filed: 04/30/20 12:23> Subjective As above. Patient still with some serous drainage. Denies pain. Better ostomy function. Agree with increasing diet. Consider diuretics for abdominal wall edema. Will follow. Objective - Vital Signs Vital signs: Vital Signs Temp 97.8 F 04/30/20 08:00 Pulse 84 04/30/20 08:00 Resp 20 04/30/20 08:00 BP 169/78 04/30/20 08:00 Pulse Ox 96 04/30/20 09:48 Intake & Output 04/29/20 04/30/20 04/30/20 18:59 06:59 18:59 Intake Total 240 Output Total 150 300 Balance 90 -300 Weight 112.3 kg 110.8 kg Intake: Oral 240 Output: Stool 150 300 Other: Voiding Method Toilet # Voids 1 1 # Bowel Movements 1 2 - Labs CBC & Chem 7: 04/27/20 07:10 04/27/20 07:10 Labs: Abnormal Lab Results - Last 24 Hours (Table) 04/29/20 04/30/20 04/30/20 Range/Units 21:03 06:28 06:49 POC Glucose (mg/dL) 169 H 70 L 70 L (75-99) mg/dL
[2020-04-30 12:06] LABS: Glucose,Whole Blood 99 mg/dL (75-99)
--- NOTE | 2020-04-30 15:23 | P.PN ---
Subjective Progress Note Date: 04/30/20 Abdominal ileus Chest pain 59-year-old female patient presented to the hospital with complaining of inter mittent nausea and vomiting; patient is admitted to the hospital for abdominal ileus 04/28/2020 Patient is seen and evaluated in room at bedside; had 2 episodes of CP this morning with marked elevation in BP; no c/o CP at this time Patient has been evaluated and recommending stop Brilinta and start the patient on aspirin 81 mg by mouth daily; add hydralazine 50 mg by mouth twice a day for blood pressure control; 2-D echo with Doppler study to assess cardiac structure and function; schedule patient for Lexiscan MPI to rule out underlying ischemia. Surgery is following for Ileus and not recommending any sugical intervention 04/29/2020 Patient is currently sitting in a chair comfortably. Denied any complaints of chest pain or shortness breath. Patient underwent Lexiscan stress test today interpreted as basal anterior wall ischemia. And it appears normal perfusion. Currently patient is asymptomatic. No further recommendations from cardiology standpoint. Patient has been having serous discharge from the surgical site and is being followed by general surgery. Continue to monitor and PT OT will be consulted. Nausea and vomiting improved and patient is able to tolerate and diet will be advanced. Patient has been afebrile. No complaints of dysuria or hematuria. 04/30/2020 Patient is seen in follow-up with no acute overnight issues. Patient is currently maintained on full liquids and diet is being advanced per surgery. Surgery is following closely. Patient continues to have stool noted in the ostomy. Blood sugars have been on the lower side and patient is on 40 units of Levemir at night and will continue with Accu-Cheks before meals and at bedtime. Patient states she was also maintained on oral antidiabetic medications along with sliding scale previously in the past. Will continue to hold metformin and continue to monitor Accu-Cheks closely. Magnesium is improved at 1.7. Vital signs within stable. Patient refusing rehab facility and will continue to go ho [place] with home care when stabilized and discharged. Patient underwent stress test and has been cleared by cardiology and patient denies any further episodes of chest pain noted. Instructed the patient to increase activity as tolerated. Review of systems: Constitutional: No reports of fatigue, fever, or chills, reports mild headache and episode of low blood sugar Cardiovascular: No reports of chest pain or palpitations Respiratory: No reports of shortness of breath or cough GI: No reports of nausea, vomiting, or diarrhea : No reports of dysuria or retention Neurovascular: No reports of weakness or numbness All medications have been reviewed Active Medications Acetaminophen (Acetaminophen Tab 325 Mg Tab) 650 mg PO Q6HR PRN PRN Reason: Fever and/ or Pain Last Admin: 04/30/20 12:52 Dose: 650 mg Documented by: Albuterol Sulfate (Albuterol Nebulized 2.5 Mg/3 Ml) 2.5 mg INHALATION RT-Q6H PRN PRN Reason: Shortness Of Breath Aspirin (Aspirin 81 Mg) 81 mg PO DAILY [facility] Last Admin: 04/30/20 08:14 Dose: 81 mg Documented by: Atorvastatin Calcium (Atorvastatin 10 Mg Tab) 10 mg PO MOFR [facility] Last Admin: 04/29/20 08:23 Dose: 10 mg Documented by: Budesonide/Formoterol Fumarate (Symbicort 160-4.5 Mcg Inhaler) 2 puff INHALATION RT-BID [facility] Last Admin: 04/30/20 09:48 Dose: 2 puff Documented by: Cyclobenzaprine HCl (Cyclobenzaprine 5 Mg Tab) 5 mg PO TID PRN PRN Reason: Muscle Spasm Last Admin: 04/28/20 17:57 Dose: 5 mg Documented by: Diltiazem HCl (Diltiazem Cd 240 Mg Cap.Er.24h) 240 mg PO [facility] Last Admin: 04/29/20 21:19 Dose: 240 mg Documented by: Furosemide (Furosemide 10 Mg/Ml 4 Ml Vial) 40 mg IV Q8HR [facility] Stop: 05/01/20 08:01 Hydralazine HCl (Hydralazine Hcl 50 Mg Tab) 50 mg PO BID [facility] Last Admin: 04/30/20 08:14 Dose: 50 mg Documented by: Sodium Chloride (Saline 0.9%) 1,000 mls @ 80 mls/hr IV .[id number] [facility] Last Admin: 04/30/20 08:15 Dose: 80 mls/hr Documented by: Insulin Detemir (Insulin Detemir (Levemir) 100 Unit/Ml Syr) 40 unit SQ [facility] Last Admin: 04/29/20 21:20 Dose: 40 unit Documented by: Loratadine (Loratadine 10 Mg Tab) 10 mg PO [facility] Last Admin: 04/29/20 21:19 Dose: 10 mg Documented by: Losartan Potassium (Losartan 50 Mg Tab) 50 mg PO BID [facility] Last Admin: 04/30/20 08:14 Dose: 50 mg Documented by: Miscellaneous Information (Magnesium Replacement Protocol 1 Each Misc) 1 each MISCELLANE DAILY PRN; Protocol PRN Reason: Per Protocol Morphine Sulfate (Morphine Sulfate 4 Mg/Ml Syringe) 4 mg IV Q4HR PRN PRN Reason: Severe Pain Naloxone HCl (Naloxone 0.4 Mg/Ml 1 Ml Vial) 0.2 mg IV Q2M PRN PRN Reason: Opioid Reversal Dulaglutide [ Trulicity] 1.5 Mg/0. 5 Ml Pen 1.5 mg SQ MO [facility] Last Admin: 04/29/20 08:07 Dose: Not Given Documented by: Nystatin (Nystatin 100,000 Unit/Gm Powd 15 Gm) 1 applic TOPICAL DAILY PRN PRN Reason: Rash Ondansetron HCl (Ondansetron 4 Mg/2 Ml Vial) 4 mg IVP Q8HR PRN PRN Reason: Nausea And Vomiting Last Admin: 04/28/20 00:51 Dose: 4 mg Documented by: Polyethylene Glycol (Polyethylene Glycol 3350 17 Gm Powd.Pack) 17 gm PO DAILY [facility] Last Admin: 04/30/20 08:14 Dose: Not Given Documented by: Ropinirole HCl (Ropinirole Hcl 0.25 Mg Tab) 0.25 mg PO TID [facility] Last Admin: 04/30/20 08:14 Dose: 0.25 mg Documented by: Ropinirole HCl (Ropinirole Hcl 1 Mg Tab) 1 mg PO TID [facility] Last Admin: 04/30/20 08:14 Dose: 1 mg Documented by: Senna/Docusate Sodium (Sennosides-Docusate Sodium 1 Each Tab) 1 each PO [facility] Last Admin: 04/29/20 21:19 Dose: 1 each Documented by: Objective - Vital Signs Vital signs: Vital Signs Temp 97.8 F 04/30/20 08:00 Pulse 84 04/30/20 08:00 Resp 20 04/30/20 08:00 BP 169/78 04/30/20 08:00 Pulse Ox 96 04/30/20 09:48 Intake & Output 04/29/20 04/30/20 04/30/20 18:59 06:59 18:59 Intake Total 240 Output Total 150 300 Balance 90 -300 Weight 112.3 kg 110.8 kg Intake: Oral 240 Output: Stool 150 300 Other: Voiding Method Toilet # Voids 1 1 # Bowel Movements 1 2 - Exam Gen: This is a 59-year-old female awake, alert and oriented 3, appears to be in no acute distress, well-developed, well-nourished, obese. HEENT: Head is atraumatic, normocephalic. Pupils equal, round. Sclerae is anicteric. NECK: Supple. No JVD. No lymphadenopathy. No thyromegaly. LUNGS: Diminished breath sounds bilaterally with no wheezing or rhonchi noted. No intercostal retractions. HEART: S1, S2 are muffled ABDOMEN: Soft. Obese. Bowel sounds are present. No masses. No tenderness. Surgical dressing recently changed and is dry. Left-sided ostomy noted with stool EXTREMITIES: No pedal edema. No calf tenderness. NEUROLOGICAL: Patient is awake, alert and oriented x3. Cranial nerves 2 through 12 are grossly intact. - Labs CBC & Chem 7: 04/27/20 07:10 04/27/20 07:10 Labs: Abnormal Lab Results - Last 24 Hours (Table) 04/29/20 04/30/20 04/30/20 Range/Units 21:03 06:28 06:49 POC Glucose (mg/dL) 169 H 70 L 70 L (75-99) mg/dL Assessment and Plan Assessment: Abdominal pain with recent history of partial colectomy with end colostomy due to chronic obstruction with vomiting and ileus, improved Atypical chest pain possibly related to muscle spasms Coronary artery disease Anemia Hypertension Hyperlipidemia Asthma/COPD, not in acute exacerbation Diabetes mellitus type 1 DVT prophylaxis GI prophylaxis Full code Plan: Continue with current medications, management, and symptomatic treatment. Patient has been seen and evaluated and underwent stress test with cardiology and has been cleared. Patient also being seen and evaluated and closely monitored by surgery for recent partial colectomy with end colostomy one week ago with possible ileus which is improving. Patient had an episode of hypoglycemia and is being closely monitored. Continue to monitor Accu-Cheks before meals and at bedtime and continue with long-acting insulin. Metformin is on hold and will continue. Repeat magnesium has improved and is 1.7. Vital signs have been stable. Patient encouraged increased activity as tolerated. Patient is tolerating diet and was on full liquids and being advanced and will monitor for tolerance. Further recommendations to follow based on the clinical course of the patient. Possible discharge in 24 hours.
[2020-04-30 16:49] LABS: Glucose,Whole Blood 146 mg/dL (75-99)
[2020-04-30] MEDS: FUROSEMIDE 10 MG/ML 4 ML VIAL IV SCH ×2 (17:27→23:10)
[2020-04-30 20:44] LABS: Glucose,Whole Blood 159 mg/dL (75-99)
[2020-04-30] MEDS: DILTIAZEM CD 240 MG CAP.ER.24H PO SCH (21:08)
[2020-04-30] MEDS: LORATADINE 10 MG TAB PO SCH (21:08)
[2020-04-30] MEDS: INSULIN DETEMIR (LEVEMIR) 100 UNIT/ML SYR SQ SCH (21:08)
[2020-04-30] MEDS: SENNOSIDES-DOCUSATE SODIUM 1 EACH TAB PO SCH (21:08)
[2020-05-01] MEDS: SODIUM CHLORIDE 0.9% 1,000 ML IV SCH ×2 (06:03→18:19)
[2020-05-01 06:21] LABS: Glucose,Whole Blood 117 mg/dL (75-99)
[2020-05-01] MEDS: SYMBICORT 160-4.5 MCG INHALER INHALATION SCH ×2 (09:00→20:43)
[2020-05-01] MEDS: FUROSEMIDE 10 MG/ML 4 ML VIAL IV SCH (10:14)
[2020-05-01] MEDS: hydrALAZINE HCL 50 MG TAB PO SCH ×2 (10:14→21:03)
[2020-05-01] MEDS: polyethylene glycoL 3350 17 GM POWD.PACK PO SCH (10:14)
[2020-05-01] MEDS: LOSARTAN 50 MG TAB PO SCH ×2 (10:14→21:03)
[2020-05-01] MEDS: ASPIRIN 81 MG PO SCH (10:15)
--- NOTE | 2020-05-01 10:31 | P.PN ---
<ThiagogómezNa arthur - Last Filed: 05/01/20 10:24> Subjective Progress Note Date: 05/01/20 CHIEF COMPLAINT: Nausea, vomiting, abdominal pain and chest pain HISTORY OF PRESENT ILLNESS: Patient is being followed for ileus that is resolving. Patient was advanced to a regular diet yesterday at lunch. She reports eating a whole tray. On then half of her tray for dinner. She had no stool output through her ostomy during the night. She is complaining of abdominal cramping. This morning around 10:00 when examined patient did start having stool in her bag as well as gas present. Stool is soft and brown. She is still reporting some abdominal cramping. She received 3 doses of IV Lasix for abdominal wall edema. She has had decrease in the serous drainage from incision site. Nursing staff did not need to change the dressing until this morning. Patient is afebrile. Patient's weight is down from 110.8 to 106.5 kg. PHYSICAL EXAM: VITAL SIGNS: Reviewed. GENERAL: Well-developed in no acute distress. HEENT: No sclera icterus. Extraocular movements grossly intact. Moist buccal mucosa. Head is atraumatic, normocephalic. ABDOMEN: Soft. Nontender. Obese. Stoma pink. Soft brown stool and gas present in ostomy bag. Patient's midline incision has 2 areas with marie present. There is serous drainage noted on dressing. NEUROLOGIC: Alert and oriented. Cranial nerves II through XII grossly intact. ASSESSMENT: 1. Postoperative ileus resolving 2. Nausea and vomiting resolved 3. Chest pain resolved. Abnormal stress test evaluated by cardiology and cleared for discharge PLAN: -Continue regular diet -Continue supportive care -Continue local wound care -Encouraged patient to increase activity -No surgical intervention planned Physician [employer] Technician note has been reviewed by physician. Signing provider agrees with the documented findings, assessment, and plan of care. Objective - Vital Signs Vital signs: Vital Signs Temp 98.1 F 05/01/20 09:20 Pulse 84 05/01/20 09:20 Resp 18 05/01/20 09:20 BP 128/74 05/01/20 09:20 Pulse Ox 93 L 05/01/20 09:20 Intake & Output 04/30/20 05/01/20 05/01/20 18:59 06:59 18:59 Intake Total 420 560 236 Output Total 6000 300 Balance 420 -5440 -64 Weight 106.5 kg Intake: Intake, IV Titration 80 Amount Sodium Chloride 0.9% 1, 80 000 ml @ 80 mls/hr IV . [id number] [facility] Rx#:[id number] Oral 420 480 236 Output: Urine 6000 300 Other: Voiding Method Bedside Commode # Voids 0 1 - Labs CBC & Chem 7: 04/27/20 07:10 04/27/20 07:10 Labs: Abnormal Lab Results - Last 24 Hours (Table) 04/30/20 04/30/20 05/01/20 Range/Units 16:38 20:43 06:10 POC Glucose (mg/dL) 146 H 159 H 117 H (75-99) mg/dL <Rosas Ceron - Last Filed: 05/01/20 11:33> Subjective As above. Patient with some intermittent crampy abdominal discomfort. She is having loose stools through the ostomy. She is passing flatus as well. No nausea or vomiting. Drainage from the upper midline wound significantly decreased. Still with serous drainage from the lower incisional wound. Patient responded well to Lasix. Will add one dose of magnesium citrate at this time. Continue MiraLAX and Colace. Objective - Vital Signs Vital signs: Vital Signs Temp 98.1 F 05/01/20 09:20 Pulse 84 05/01/20 09:20 Resp 18 05/01/20 09:20 BP 128/74 05/01/20 09:20 Pulse Ox 93 L 05/01/20 09:20 Intake & Output 04/30/20 05/01/20 05/01/20 18:59 06:59 18:59 Intake Total 420 560 236 Output Total 6000 300 Balance 420 5440 -64 Weight 106.5 kg Intake: Intake, IV Titration 80 Amount Sodium Chloride 0.9% 1, 80 000 ml @ 80 mls/hr IV . [id number] [facility] Rx#:[id number] Oral 420 480 236 Output: Urine 6000 300 Other: Voiding Method Bedside Commode # Voids 0 1 - Labs CBC & Chem 7: 04/27/20 07:10 04/27/20 07:10 Labs: Abnormal Lab Results - Last 24 Hours (Table) 04/30/20 04/30/20 05/01/20 Range/Units 16:38 20:43 06:10 POC Glucose (mg/dL) 146 H 159 H 117 H (75-99) mg/dL
[2020-05-01] MEDS ORDERED: MAGNESIUM CITRATE 296 ML BOTTLE PO ONE (11:33)
[2020-05-01 11:57] LABS: Glucose,Whole Blood 123 mg/dL (75-99)
--- NOTE | 2020-05-01 15:45 | P.PN ---
Subjective Progress Note Date: 05/01/20 Abdominal ileus Chest pain 59-year-old female patient presented to the hospital with complaining of inter mittent nausea and vomiting; patient is admitted to the hospital for abdominal ileus 04/28/2020 Patient is seen and evaluated in room at bedside; had 2 episodes of CP this morning with marked elevation in BP; no c/o CP at this time Patient has been evaluated and recommending stop Brilinta and start the patient on aspirin 81 mg by mouth daily; add hydralazine 50 mg by mouth twice a day for blood pressure control; 2-D echo with Doppler study to assess cardiac structure and function; schedule patient for Lexiscan MPI to rule out underlying ischemia. Surgery is following for Ileus and not recommending any sugical intervention 04/29/2020 Patient is currently sitting in a chair comfortably. Denied any complaints of chest pain or shortness breath. Patient underwent Lexiscan stress test today interpreted as basal anterior wall ischemia. And it appears normal perfusion. Currently patient is asymptomatic. No further recommendations from cardiology standpoint. Patient has been having serous discharge from the surgical site and is being followed by general surgery. Continue to monitor and PT OT will be consulted. Nausea and vomiting improved and patient is able to tolerate and diet will be advanced. Patient has been afebrile. No complaints of dysuria or hematuria. 04/30/2020 Patient is seen in follow-up with no acute overnight issues. Patient is currently maintained on full liquids and diet is being advanced per surgery. Surgery is following closely. Patient continues to have stool noted in the ostomy. Blood sugars have been on the lower side and patient is on 40 units of Levemir at night and will continue with Accu-Cheks before meals and at bedtime. Patient states she was also maintained on oral antidiabetic medications along with sliding scale previously in the past. Will continue to hold metformin and continue to monitor Accu-Cheks closely. Magnesium is improved at 1.7. Vital signs within stable. Patient refusing rehab facility and will continue to go [place] with home care when stabilized and discharged. Patient underwent stress test and has been cleared by cardiology and patient denies any further episodes of chest pain noted. Instructed the patient to increase activity as tolerated. 05/01/2020 Patient is seen and evaluated in follow-up and diet has been advanced to consistent carb heart healthy diet and less output in the ostomy has been noted. Surgery is following. Blood sugars remain on the lower side and continue to monitor Accu-Cheks before meals and at bedtime although improved and will continue with current medication regimen. Patient instructed to continue to increase activity as tolerated and sit in the chair and out of the bed. No further reports of chest pain noted. Patient is afebrile. No reports of worsening shortness of breath and patient is maintained on 3 L of oxygen at 96%. Patient normally wears 2 L at home. Review of systems: Constitutional: No reports of fatigue, fever, or chills, reports mild headache and episode of low blood sugar Cardiovascular: No reports of chest pain or palpitations Respiratory: No reports of shortness of breath or cough GI: No reports of nausea, vomiting, or diarrhea : No reports of dysuria or retention Neurovascular: No reports of weakness or numbness All medications have been reviewed Active Medications Acetaminophen (Acetaminophen Tab 325 Mg Tab) 650 mg PO Q6HR PRN PRN Reason: Fever and/ or Pain Last Admin: 04/30/20 12:52 Dose: 650 mg Documented by: Albuterol Sulfate (Albuterol Nebulized 2.5 Mg/3 Ml) 2.5 mg INHALATION RT-Q6H PRN PRN Reason: Shortness Of Breath Aspirin (Aspirin 81 Mg) 81 mg PO DAILY [facility] Last Admin: 05/01/20 10:15 Dose: 81 mg Documented by: Atorvastatin Calcium (Atorvastatin 10 Mg Tab) 10 mg PO MOFR [facility] Last Admin: 04/29/20 08:23 Dose: 10 mg Documented by: Budesonide/Formoterol Fumarate (Symbicort 160-4.5 Mcg Inhaler) 2 puff INHALATION RT-BID [facility] Last Admin: 05/01/20 09:00 Dose: 2 puff Documented by: Cyclobenzaprine HCl (Cyclobenzaprine 5 Mg Tab) 5 mg PO TID PRN PRN Reason: Muscle Spasm Last Admin: 04/28/20 17:57 Dose: 5 mg Documented by: Diltiazem HCl (Diltiazem Cd 240 Mg Cap.Er.24h) 240 mg PO HS [facility] Last Admin: 04/30/20 21:08 Dose: 240 mg Documented by: Hydralazine HCl (Hydralazine Hcl 50 Mg Tab) 50 mg PO BID [facility] Last Admin: 05/01/20 10:14 Dose: 50 mg Documented by: Sodium Chloride (Saline 0.9%) 1,000 mls @ 80 mls/hr IV .[id number] [facility] Last Admin: 05/01/20 06:03 Dose: 80 mls/hr Documented by: Insulin Detemir (Insulin Detemir (Levemir) 100 Unit/Ml Syr) 40 unit SQ HS [facility] Last Admin: 04/30/20 21:08 Dose: 20 unit Documented by: Loratadine (Loratadine 10 Mg Tab) 10 mg PO HS [facility] Last Admin: 04/30/20 21:08 Dose: 10 mg Documented by: Losartan Potassium (Losartan 50 Mg Tab) 50 mg PO BID [facility] Last Admin: 05/01/20 10:14 Dose: 50 mg Documented by: Miscellaneous Information (Magnesium Replacement Protocol 1 Each Misc) 1 each MISCELLANE DAILY PRN; Protocol PRN Reason: Per Protocol Morphine Sulfate (Morphine Sulfate 4 Mg/Ml Syringe) 4 mg IV Q4HR PRN PRN Reason: Severe Pain Naloxone HCl (Naloxone 0.4 Mg/Ml 1 Ml Vial) 0.2 mg IV Q2M PRN PRN Reason: Opioid Reversal Dulaglutide [ Trulicity] 1.5 Mg/0. 5 Ml Pen 1.5 mg SQ MO [facility] Last Admin: 04/29/20 08:07 Dose: Not Given Documented by: Nystatin (Nystatin 100,000 Unit/Gm Powd 15 Gm) 1 applic TOPICAL DAILY PRN PRN Reason: Rash Ondansetron HCl (Ondansetron 4 Mg/2 Ml Vial) 4 mg IVP Q8HR PRN PRN Reason: Nausea And Vomiting Last Admin: 04/28/20 00:51 Dose: 4 mg Documented by: Polyethylene Glycol (Polyethylene Glycol 3350 17 Gm Powd.Pack) 17 gm PO DAILY [facility] Last Admin: 05/01/20 10:14 Dose: 17 gm Documented by: Ropinirole HCl (Ropinirole Hcl 0.25 Mg Tab) 0.25 mg PO TID [facility] Last Admin: 05/01/20 10:14 Dose: 0.25 mg Documented by: Ropinirole HCl (Ropinirole Hcl 1 Mg Tab) 1 mg PO TID [facility] Last Admin: 05/01/20 10:14 Dose: 1 mg Documented by: Senna/Docusate Sodium (Sennosides-Docusate Sodium 1 Each Tab) 1 each PO HS [facility] Last Admin: 04/30/20 21:08 Dose: 1 each Documented by: Objective - Vital Signs Vital signs: Vital Signs Temp 98.1 F 05/01/20 09:20 Pulse 84 05/01/20 09:20 Resp 18 05/01/20 09:20 BP 128/74 05/01/20 09:20 Pulse Ox 93 L 05/01/20 09:20 Intake & Output 04/30/20 05/01/20 05/01/20 18:59 06:59 18:59 Intake Total 420 560 236 Output Total 6000 300 Balance 420 -5440 -64 Weight 106.5 kg Intake: Intake, IV Titration 80 Amount Sodium Chloride 0.9% 1, 80 000 ml @ 80 mls/hr IV . [id number] [facility] Rx#:[id number] Oral 420 480 236 Output: Urine 6000 300 Other: Voiding Method Bedside Commode # Voids 0 1 - Exam Gen: This is a 59-year-old female awake, alert and oriented 3, appears to be in no acute distress, well-developed, well-nourished, obese. HEENT: Head is atraumatic, normocephalic. Pupils equal, round. Sclerae is anicteric. NECK: Supple. No JVD. No lymphadenopathy. No thyromegaly. LUNGS: Diminished breath sounds bilaterally with no wheezing or rhonchi noted. No intercostal retractions. HEART: S1, S2 are muffled ABDOMEN: Soft. Obese. Bowel sounds are present. No masses. No tenderness. Surgical dressing recently changed and is dry. Left-sided ostomy noted with stool although output has decreased since change in diet EXTREMITIES: No pedal edema. No calf tenderness. NEUROLOGICAL: Patient is awake, alert and oriented x3. Cranial nerves 2 through 12 are grossly intact. 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 Patient has been seen and evaluated and underwent stress test with cardiology and has been cleared. Patient also being seen and evaluated and closely monitored by surgery for recent partial colectomy with end colostomy one week ago with possible ileus which is improving. Patient's output in the ostomy has decreased and advance in diet and will need monitoring overnight to closely monitor output and tolerance of diet. Continue to monitor Accu-Cheks before meals and at bedtime and continue with long-acting insulin. Patient encouraged increased activity as tolerated. Patient is tolerating diet and was on full liquids and being advanced and will monitor for tolerance. Further recommendations to follow based on the clinical course of the patient. Possible discharge in 24 hours.
[2020-05-01 16:59] LABS: Glucose,Whole Blood 154 mg/dL (75-99)
[2020-05-01 20:56] LABS: Glucose,Whole Blood 236 mg/dL (75-99)
[2020-05-01] MEDS: LORATADINE 10 MG TAB PO SCH (21:03)
[2020-05-01] MEDS: SENNOSIDES-DOCUSATE SODIUM 1 EACH TAB PO SCH (21:03)
[2020-05-01] MEDS: DILTIAZEM CD 240 MG CAP.ER.24H PO SCH (21:03)
[2020-05-01] MEDS: INSULIN DETEMIR (LEVEMIR) 100 UNIT/ML SYR SQ SCH (21:04)
[2020-05-02] MEDS: SODIUM CHLORIDE 0.9% 1,000 ML IV SCH (07:18)
[2020-05-02 07:25] LABS: Glucose,Whole Blood 89 mg/dL (75-99)
[2020-05-02] MEDS: SYMBICORT 160-4.5 MCG INHALER INHALATION SCH (08:16)
[2020-05-02] MEDS: ASPIRIN 81 MG PO SCH (08:34)
[2020-05-02] MEDS: LOSARTAN 50 MG TAB PO SCH (08:35)
[2020-05-02] MEDS: polyethylene glycoL 3350 17 GM POWD.PACK PO SCH (08:35)
--- NOTE | 2020-05-02 10:26 | P.PN ---
<KoNa arthur - Last Filed: 05/02/20 10:22> Subjective Progress Note Date: 05/02/20 CHIEF COMPLAINT: Nausea, vomiting, abdominal pain and chest pain HISTORY OF PRESENT ILLNESS: Patient is being followed for ileus that is resolving. Patient reports that her abdominal cramping has resolved. She was given mag citrate and is also taking MiraLAX and stool softener. She is having good amount of soft brown stool through her colostomy and having flatus. She reports a good appetite. Denies any nausea or vomiting. She continues to have a decrease in the amount of serous drainage from her incision site. Anticipatin g discharge later today. Afebrile PHYSICAL EXAM: VITAL SIGNS: Reviewed. GENERAL: Well-developed in no acute distress. HEENT: No sclera icterus. Extraocular movements grossly intact. Moist buccal mucosa. Head is atraumatic, normocephalic. ABDOMEN: Soft. Nontender. Obese. Stoma pink. Soft brown stool and gas present in ostomy bag. Patient's midline incision has 2 areas with marie present . There is serous drainage noted on dressing. NEUROLOGIC: Alert and oriented. Cranial nerves II through XII grossly intact. ASSESSMENT: 1. Postoperative ileus resolved 2. Nausea and vomiting resolved 3. Chest pain resolved. Abnormal stress test evaluated by cardiology and cleared for discharge PLAN: -Continue regular diet -Continue MiraLAX and stool softener -Continue supportive care -Continue local wound care -Encouraged patient to increase activity -No surgical intervention planned Physician Systems Development Manager note has been reviewed by physician. Signing provider agrees with the documented findings, assessment, and plan of care. Objective - Vital Signs Vital signs: Vital Signs Temp 97.9 F 05/02/20 07:13 Pulse 77 05/02/20 07:13 Resp 17 05/02/20 07:13 BP 135/79 05/02/20 07:13 Pulse Ox 98 05/02/20 08:16 Intake & Output 05/01/20 05/02/20 05/02/20 18:59 06:59 18:59 Intake Total 916 Output Total 1300 550 Balance -384 -550 Intake: Oral 916 Output: Urine 1300 400 Stool 150 Other: Voiding Method Bedside Commode # Voids 1 # Bowel Movements 1 - Labs CBC & Chem 7: 04/27/20 07:10 04/27/20 07:10 Labs: Abnormal Lab Results - Last 24 Hours (Table) 05/01/20 05/01/20 05/01/20 Range/Units 11:56 16:58 20:54 POC Glucose (mg/dL) 123 H 154 H 236 H (75-99) mg/dL <Tanya Ceronony - Last Filed: 05/02/20 15:44> Subjective As above. Patient with better ostomy output. August discharge. Follow-up next week. Objective - Vital Signs Vital signs: Vital Signs Temp 98 F 05/02/20 13:03 Pulse 79 05/02/20 13:03 Resp 19 05/02/20 13:03 BP 131/71 05/02/20 13:03 Pulse Ox 97 05/02/20 13:03 Intake & Output 05/01/20 05/02/20 05/02/20 18:59 06:59 18:59 Intake Total 916 Output Total 1300 550 400 Balance -384 -550 -400 Intake: Oral 916 Output: Urine 1300 400 400 Stool 150 Other: Voiding Method Bedside Commode # Voids 1 2 # Bowel Movements 1 - Labs CBC & Chem 7: 04/27/20 07:10 04/27/20 07:10 Labs: Abnormal Lab Results - Last 24 Hours (Table) 05/01/20 05/01/20 05/02/20 Range/Units 16:58 20:54 11:14 POC Glucose (mg/dL) 154 H 236 H 131 H (75-99) mg/dL
[2020-05-02] MEDS: hydrALAZINE HCL 50 MG TAB PO SCH (10:50)
[2020-05-02 11:16] LABS: Glucose,Whole Blood 131 mg/dL (75-99)
[2020-05-02 13:55] VITALS: BP 131/71; PULSE 79; RESP 19; TEMP 98
--- NOTE | 2020-05-02 16:00 | P.DS ---
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 Patient will continue with home care in the outpatient setting. Patient will follow-up with her primary care provider at the [facility] in the outpatient setting upon discharge. Patient also instructed to follow-up with cardiology in 1-2 weeks. Total time taken is greater than 35 minutes. Hospital course This is a 59-year-old female who was recently admitted with intermittent nausea and vomiting with abdominal discomfort and admitted for abdominal ileus along with chest pain and was being closely monitored. She was seen and evaluated by cardiology and recommending stopping Brilinta and starting aspirin and hydralazine was added. Patient underwent 2-D echo and patient was also evaluated by surgery for recent and colectomy with colostomy. Patient surgical site continues to have some serous drainage and multiple kusum were removed and will continue with wound care and packing at the site. Patient ostomy noted to have more stool output today and patient is tolerating regular diet. Patient will continue to monitor blood sugars before meals and at bedtime and treat accordingly with her insulin. Patient will follow-up with cardiology in 1-2 weeks as discussed along with surgery and her primary care provider upon discharge. Patient will continue with home care in the outpatient setting. Currently no reports of chest pain, shortness of breath, or palpitations. Patient is afebrile. No reports of nausea or vomiting and patient is tolerating diet. Patient will be discharged home today. Guarded prognosis On exam vital signs are stable. Temp is 98F, pulse is 79, respirations are 19, blood pressure is 131/71, oxygen saturation is 97% on 3 L via nasal cannula. Patient does wear oxygen while at rest at home. Cardio S1, S2 are muffled. Respiratory system shows diminished breath sounds at the bases with no wheezing or rhonchi noted. Abdomen is soft, obese, and nontender. Nervous system shows no focal deficits. Please refer to medication reconciliation sheet for a list of medications. Patient Condition at Discharge: Stable Plan - Discharge Summary Discharge Rx Participant: Yes New Discharge Prescriptions: New hydrALAZINE HCL [Apresoline] 50 mg PO BID 30 Days #60 tab Aspirin 81 mg PO DAILY 30 Days #30 chew Continue Loratadine [Claritin] 10 mg PO HS rOPINIRole HCL [Requip Xl] 4 mg PO HS Budesonide-Formot 160-4.5 Mcg [Symbicort 160-4.5 Mcg Inhaler] 2 puff INHALA TION RT-BID Albuterol Sulfate [Proair Hfa] 1 - 2 puff INHALATION RT-Q6H PRN PRN Reason: Shortness Of Breath EPINEPHrine (Auto Inject) [Epipen] 0.3 mg IM ONCE PRN PRN Reason: Anaphylaxis Dulaglutide [Trulicity] 1.5 mg SQ MO metFORMIN HCL [Glucophage] 500 mg PO BID Atorvastatin [Lipitor] 10 mg PO MOFR Sennosides/Docusate Sodium [Senna Plus 8.6-50 mg Tablet] 1 tab PO HS Insulin Glargine,Hum.rec.anlog [Lantus Solostar] 40 unit SQ HS Miconazole Nitrate [Lotrimin AF Powder] 1 applic TOPICAL DAILY PRN PRN Reason: Rash Losartan [Cozaar] 50 mg PO BID Diltiazem Cd [Cardizem CD] 240 mg PO HS 30 Days #30 cap.er.24h polyethylene glycoL 3350 [Miralax] 17 gm PO DAILY 30 Days #30 powd.pack Acetaminophen Tab [Tylenol] 650 mg PO Q6HR PRN tab PRN Reason: Fever And/ Or Pain Discontinued Levofloxacin [Levaquin] 750 mg PO HS No Action Ticagrelor [Brilinta] 90 mg PO BID #60 tab Discharge Medication List Loratadine [Claritin] 10 mg PO HS 06/09/15 [History] rOPINIRole HCL [Requip Xl] 4 mg PO HS 06/09/15 [History] Budesonide-Formot 160-4.5 Mcg [Symbicort 160-4.5 Mcg Inhaler] 2 puff INHALATION RT-BID 11/29/16 [History] Albuterol Sulfate [Proair Hfa] 1 - 2 puff INHALATION RT-Q6H PRN 08/10/18 [History] Ticagrelor [Brilinta] 90 mg PO BID #60 tab 08/12/18 [Rx] Atorvastatin [Lipitor] 10 mg PO MOFR 04/19/20 [History] Dulaglutide [Trulicity] 1.5 mg SQ MO 04/19/20 [History] EPINEPHrine (Auto Inject) [Epipen] 0.3 mg IM ONCE PRN 04/19/20 [History] Insulin Glargine,Hum.rec.anlog [Lantus Solostar] 40 unit SQ HS 04/19/20 [History] Losartan [Cozaar] 50 mg PO BID 04/19/20 [History] Miconazole Nitrate [Lotrimin AF Powder] 1 applic TOPICAL DAILY PRN 04/19/20 [History] Sennosides/Docusate Sodium [Senna Plus 8.6-50 mg Tablet] 1 tab PO HS 04/19/20 [History] metFORMIN HCL [Glucophage] 500 mg PO BID 04/19/20 [History] Acetaminophen Tab [Tylenol] 650 mg PO Q6HR PRN tab 04/25/20 [Rx] Diltiazem Cd [Cardizem CD] 240 mg PO HS 30 Days #30 cap.er.24h 04/25/20 [Rx] polyethylene glycoL 3350 [Miralax] 17 gm PO DAILY 30 Days #30 powd.pack 04/25/20 [Rx] Aspirin 81 mg PO DAILY 30 Days #30 chew 05/02/20 [Rx] hydrALAZINE HCL [Apresoline] 50 mg PO BID 30 Days #60 tab 05/02/20 [Rx] Follow up Appointment(s)/Referral(s): Rosas Ceron MD [Medical Doctor] - 05/09/20 8:45 am [facility] [NON-STAFF] - [facility] [Primary Care Provider] - 05/08/20 1:00 pm Patient Instructions/Handouts: Colostomy Care (GEN), Ileus (GEN), Colectomy Diet (GEN) Activity/Diet/Wound Care/Special Instructions: Activity Limited until follow-up Follow-up with primary care provider upon discharge Follow-up with cardiology in 1-2 weeks Continue to hold Brilinta until cardiology follow-up Follow-up with surgery in the outpatient setting Continue with home care Discharge Disposition: HOME WITH HOME HEALTH SERVICES
--- NOTE | 2020-05-09 07:38 | CDI ---
Documentation Clarification Form Date: 05/09/20 From: Tammi Lowery Phone: If you have a question about this query, please contact Apple Chopra, Travel Pt at [phone] between 8am and 5pm. Admit Date: 04/26/2020 11:38:00 PM Patient Name: Halima Steiner Visit Number: [id number] Discharge Date: 05/02/2020 03:05:00 PM ATTENTION: The Clinical Documentation Specialists (CDI) and [facility] Coding Staff appreciate your assistance in clarifying documentation. Please respond to the clarification below the line at the bottom and electronically sign. The CDI & [facility] Coding staff will review the response and follow-up if needed. Please note: Queries are made part of the Legal Health Record. If you have any questions, please contact the author of this message via ITS. Dr. Steven Faria, Hx of CHF is documented in the Dr Ceron's 04/29 PN. History/Risk Factors: HTN, postop ileus, BMI 49.1, obesity, Type I DM hypoglycemia, pulm HTN, COPD, colostomy, RLS, sleep apnea Clinical Indicators: PRN shortness of breath. 04/30 VS/Pulse OX: T-97.0, P-80, R-18, BP-154/67, O2 sat-94 BNP: 786 Echocardiogram Results: There is moderate concentric left ventricular hypertrophy. Overall left ventricular systolic function is low-normal with, an EF between 50 - 55 %. Chest CT scan: Right pleural effusion. There is right lower lobe airspace infiltrate and atelectasis that appears new. Treatment: Lasix 40 mg IV Q8hr on 04/30 In your professional opinion, can you please clarify the acuity and type of CHF if known? TYPE Systolic Heart Failure Diastolic Heart Failure Systolic & Diastolic Heart Failure ACUITY Acute Chronic Acute on Chronic Heart Failure Unable to Determine Other, please specify unable to determine MTDD
== END 2020-05-02 15:05 | disposition home health service (06) | DRG 394 ==
LOC: EC 20:59 → 3SCARD 23:38 → 5NMEDONC 05-02 00:47
PROVIDERS: ADMIT Internal Medicine; ATTEND Internal Medicine
DX: K91.89 Other postprocedural complications and disorders of digestive system (principal); K56.7 Ileus, unspecified; Z68.42 Body mass index [BMI] 45.0-49.9, adult; J98.11 Atelectasis; E10.649 Type 1 diabetes mellitus with hypoglycemia without coma; I27.20 Pulmonary hypertension, unspecified; I11.0 Hypertensive heart disease with heart failure; I71.2 Thoracic aortic aneurysm, without rupture; Z43.3 Encounter for attention to colostomy; I50.9 Heart failure, unspecified; J44.9 Chronic obstructive pulmonary disease, unspecified; Z79.4 Long term (current) use of insulin; K76.0 Fatty (change of) liver, not elsewhere classified; E66.9 Obesity, unspecified; R07.89 Other chest pain; K22.70 Barrett's esophagus without dysplasia; G25.81 Restless legs syndrome; E07.9 Disorder of thyroid, unspecified; G47.30 Sleep apnea, unspecified; D64.9 Anemia, unspecified; E73.9 Lactose intolerance, unspecified; I45.10 Unspecified right bundle-branch block; E78.5 Hyperlipidemia, unspecified; I25.10 Atherosclerotic heart disease of native coronary artery without angina pectoris; K21.9 Gastro-esophageal reflux disease without esophagitis; G43.909 Migraine, unspecified, not intractable, without status migrainosus; K58.0 Irritable bowel syndrome with diarrhea; F90.9 Attention-deficit hyperactivity disorder, unspecified type; H91.90 Unspecified hearing loss, unspecified ear; M19.90 Unspecified osteoarthritis, unspecified site; R91.8 Other nonspecific abnormal finding of lung field; Z79.51 Long term (current) use of inhaled steroids; Z79.899 Other long term (current) drug therapy; Z79.02 Long term (current) use of antithrombotics/antiplatelets; Z91.19 Patient's noncompliance with other medical treatment and regimen; Z86.73 Personal history of transient ischemic attack (TIA), and cerebral infarction without residual deficits; Z97.4 Presence of external hearing-aid; Z87.19 Personal history of other diseases of the digestive system; Z87.42 Personal history of other diseases of the female genital tract; Z90.49 Acquired absence of other specified parts of digestive tract; Z90.710 Acquired absence of both cervix and uterus; Z86.69 Personal history of other diseases of the nervous system and sense organs; Z87.2 Personal history of diseases of the skin and subcutaneous tissue; Z86.59 Personal history of other mental and behavioral disorders; Z87.442 Personal history of urinary calculi; Z95.5 Presence of coronary angioplasty implant and graft; Z98.890 Other specified postprocedural states; Z71.3 Dietary counseling and surveillance; Z91.030 Bee allergy status; Z88.5 Allergy status to narcotic agent; Z88.7 Allergy status to serum and vaccine; Z88.8 Allergy status to other drugs, medicaments and biological substances; Z91.048 Other nonmedicinal substance allergy status; Y83.8 Other surgical procedures as the cause of abnormal reaction of the patient, or of later complication, without mention of misadventure at the time of the procedure; Z82.49 Family history of ischemic heart disease and other diseases of the circulatory system; Z82.5 Family history of asthma and other chronic lower respiratory diseases; Z80.0 Family history of malignant neoplasm of digestive organs
CPT/HCPCS: 36415; 71275; 74177; 78452; 80053; 83605; 83690; 83735; 83880; 84484; 85025; 85610; 85730; 93005; 93017; 93306; 94640; 94760; 96361; 96374; 96375; 99285

== ENCOUNTER 2020-05-04 20:39 | Inpatient (IN) | payer OTHER ==
[2020-05-04] MEDS ORDERED: ONDANSETRON 4 MG/2 ML VIAL IVP STA (21:02)
[2020-05-04] MEDS ORDERED: SODIUM CHLORIDE 0.9% 1,000 ML IV ONE (21:02)
[2020-05-04] MEDS ORDERED: HYDROmorphone 1 MG/ML 1 ML SYRINGE IVP STA (21:02)
--- NOTE | 2020-05-04 21:15 | ED ---
Abdominal Pain HPI - General Chief Complaint: Abdominal Pain Stated Complaint: Post Op Pain Time Seen by Provider: 05/04/20 20:52 Source: patient Mode of arrival: ambulatory Limitations: no limitations - History of Present Illness Initial Comments: 59-year-old female patient presents to the emergency department today for evaluation of abdominal pain. Patient had colectomy with colostomy placement at the beginning of this month. She has been receiving wound care for her incision with packing. She states today she went to lay down for nap and immediately started having pain in the area between her colostomy and her incision. States she did get them urine noticed some redness but she is not sure if this was there before. States whenever she shifts positions the pain gets significantly worse. She is also reporting nausea today but episodes of vomiting. States she has been having intermittent nausea since the procedure. She reports normal output in the colostomy bag. Denies any hematochezia or melena. Denies fevers or chills. Patient denies any recent rash, cough, shortness of breath, chest pain, back pain, numbness, tingling, dizziness, weakness, hematuria, dysuria, urinary urgency, urinary frequency, headache, visual changes, or any other complaints. - Related Data Home Medications Medication Instructions Recorded Confirmed Loratadine [Claritin] 10 mg PO HS 06/09/15 05/04/20 rOPINIRole HCL [Requip Xl] 4 mg PO HS 06/09/15 05/04/20 Budesonide-Formot 160-4.5 Mcg 2 puff INHALATION RT-BID 03/17/16 05/04/20 [Symbicort 160-4.5 Mcg Inhaler] Albuterol Sulfate [Proair Hfa] 1 - 2 puff INHALATION RT-Q6H PRN 08/10/18 05/04/20 Atorvastatin [Lipitor] 10 mg PO MOFR 04/19/20 05/04/20 Dulaglutide [Trulicity] 1.5 mg SQ MO 04/19/20 05/04/20 EPINEPHrine (Auto Inject) [Epipen] 0.3 mg IM ONCE PRN 04/19/20 05/04/20 Insulin Glargine,Hum.rec.anlog 40 unit SQ HS 04/19/20 05/04/20 [Lantus Solostar] Losartan [Cozaar] 50 mg PO BID 04/19/20 05/04/20 Miconazole Nitrate [Lotrimin AF 1 applic TOPICAL DAILY PRN 04/19/20 05/04/20 Powder] Sennosides/Docusate Sodium [Senna 1 tab PO HS 04/19/20 05/04/20 Plus 8.6-50 mg Tablet] metFORMIN HCL [Glucophage] 500 mg PO BID 04/19/20 05/04/20 Previous Rx's Medication Instructions Recorded Ticagrelor [Brilinta] 90 mg PO BID #60 tab 08/12/18 Acetaminophen Tab [Tylenol] 650 mg PO Q6HR PRN tab 04/25/20 Diltiazem Cd [Cardizem CD] 240 mg PO HS 30 Days #30 cap.er.24h 04/25/20 polyethylene glycoL 3350 [Miralax] 17 gm PO DAILY 30 Days #30 04/25/20 powd.pack Aspirin 81 mg PO DAILY 30 Days #30 chew 05/02/20 hydrALAZINE HCL [Apresoline] 50 mg PO BID 30 Days #60 tab 05/02/20 Allergies Allergy/AdvReac Type Severity Reaction Status Date / Time ammonia Allergy Unknown Verified 05/04/20 21:59 barium sulfate Allergy Unknown Verified 05/04/20 21:59 dulaglutide [From Trulicity] Allergy Dyspnea Verified 05/04/20 21:59 exenatide [From Byetta] Allergy Unknown Verified 05/04/20 21:59 feathers Allergy Unknown Verified 05/04/20 21:59 fexofenadine HCl Allergy Unknown Verified 05/04/20 21:59 [From Elena] hydrochlorothiazide Allergy Unknown Verified 05/04/20 21:59 influenza virus vaccine, Allergy Unknown Verified 05/04/20 21:59 specific isosorbide [From Imdur] Allergy Unknown Verified 05/04/20 21:59 meperidine HCl [From Demerol] Allergy Anaphylaxis Verified 05/04/20 21:59 nifedipine [From Procardia] Allergy Unknown Verified 05/04/20 21:59 nitroglycerin Allergy Unknown Verified 05/04/20 21:59 paroxetine [From Paxil] Allergy Unknown Verified 05/04/20 21:59 paroxetine HCl [From Paxil] Allergy Unknown Verified 05/04/20 21:59 sertraline HCl [From Zoloft] Allergy Unknown Verified 05/04/20 21:59 simvastatin [From Zocor] Allergy Unknown Verified 05/04/20 21:59 Jejuqxe-Fks-Tov Reductase Allergy Unknown Verified 05/04/20 21:59 Inhibitor venom-honey bee Allergy Anaphylaxis Verified 05/04/20 21:59 [bee venom (honey bee)] zolpidem [From Ambien] Allergy Unknown Verified 05/04/20 21:59 zolpidem tartrate Allergy Unknown Verified 05/04/20 21:59 [From Ambien] hay Allergy Dyspnea Uncoded 05/04/20 21:59 lysol Allergy Dyspnea Uncoded 05/04/20 21:59 Review of Systems ROS Statement: Those systems with pertinent positive or pertinent negative responses have been documented in the HPI. ROS Other: All systems not noted in ROS Statement are negative. Past Medical History Past Medical History: Asthma, COPD, CVA/TIA, Diabetes Mellitus, GERD/Reflux, Hearing Disorder / Deafness, Hyperlipidemia, Hypertension, Seizure Disorder, Sleep Apnea/CPAP/BIPAP, Thyroid Disorder Additional Past Medical History / Comment(s): additional hx: right bundle branch block,barretts esophagus, migraines, deanna hearing aids, lung nodules, fatty liver, pulmonary hypertension, heart murmur,obesity, IBS, RLS, arthritis, ADHD, DJD, anemia, lactose intolerance; last seizure 21 years ago, kidney stones x2 History of Any Multi-Drug Resistant Organisms: None Reported Past Surgical History: Bowel Resection, Cholecystectomy, Hysterectomy Additional Past Surgical History / Comment(s): breast biopsy,esophageal surgery - 2002 Past Anesthesia/Blood Transfusion Reactions: No Reported Reaction Past Psychological History: Anxiety, Depression Smoking Status: Never smoker Past Alcohol Use History: None Reported Past Drug Use History: None Reported - Past Family History Mother History Unknown: Yes Family Medical History: Congestive Heart Failure (CHF), Myocardial Infarction ([place]) Additional Family Medical History / Comment(s): 77 Father History Unknown: Yes Family Medical History: COPD, Myocardial Infarction ([place]) Additional Family Medical History / Comment(s): at 56 Sister(s) History Unknown: Yes Family Medical History: Myocardial Infarction ([place]) Additional Family Medical History / Comment(s): at 56 Brother(s) Family Medical History: Cancer Additional Family Medical History / Comment(s): colon cancer General Exam Limitations: no limitations General appearance: alert, in no apparent distress, other (Physical well- developed, well-nourished adult female patient in no acute distress. Vital signs upon presentation are temperature 99.0F, pulse 86, respirations 20, blood pressure 166/77, pulse ox 96% on room air.) Eye exam: Present: normal appearance, PERRL, EOMI. Absent: scleral icterus, conjunctival injection, periorbital swelling ENT exam: Present: normal exam, normal oropharynx, mucous membranes moist Respiratory exam: Present: normal lung sounds bilaterally. Absent: respiratory distress, wheezes, rales, rhonchi, stridor Cardiovascular Exam: Present: regular rate, normal rhythm, normal heart sounds. Absent: systolic murmur, diastolic murmur, rubs, gallop, clicks GI/Abdominal exam: Present: soft, tenderness (braulio-incisional), normal bowel sounds, other (Midline incision noted, kusum approximating portions, other portions are open with silver rope packing. mild surrounding erythema. Left mid abdomen colostomy, mild surrounding erythema to the right aspect of the ostomy.). Absent: distended, guarding, rebound, rigid Neurological exam: Present: alert, oriented X3, CN II-XII intact Psychiatric exam: Present: normal affect, normal mood Skin exam: Present: warm, dry, intact, normal color. Absent: rash Course Vital Signs 05/04/20 05/04/20 05/04/20 20:48 22:00 23:59 Temperature 99.0 F Pulse Rate 86 71 75 Respiratory 20 15 14 Rate Blood Pressure 166/77 151/71 143/82 O2 Sat by Pulse 96 97 97 Oximetry Medical Decision Making - Medical Decision Making 59-year-old female patient presents to the emergency department today for evaluation of abdominal pain. Patient did recently undergo colectomy with end colostomy by Dr. Ceron at the beginning of the month. Patient reports nausea throughout the day. Physical examination did reveal tenderness surrounding the incision site and the colostomy site. She did have packing in place to the open abdominal incision. She is afebrile normal vital signs. White blood cell count was 10.4. Lactic acid 2.1. Computed tomography scan abdomen and pelvis was obtained and did show evidence for ileus versus low-grade partial small bowel obstruction. Also showed some fat stranding and inflammation near the incision site which is not new compared to old exam. Case was discussed with on-call physician Dr. Kinney who agreed to admission with IV fluids. We will give clear liquid diet. - Lab Data Result diagrams: 05/04/20 21:14 05/04/20 21:14 Lab Results 05/04/20 05/04/20 05/04/20 Range/Units 21:14 21:14 21:14 WBC 10.4 (3.8-10.6) k/uL RBC 4.29 (3.80-5.40) m/uL Hgb 10.8 L (11.4-16.0) gm/dL Hct 33.9 L (34.0-46.0) % MCV 79.1 L (80.0-100.0) fL MCH 25.2 (25.0-35.0) pg MCHC 31.8 (31.0-37.0) g/dL RDW 15.9 H (11.5-15.5) % Plt Count 466 H (150-450) k/uL MPV 7.2 Neutrophils % 68 % Lymphocytes % 19 % Monocytes % 3 % Eosinophils % 7 % Basophils % 1 % Neutrophils # 7.1 (1.3-7.7) k/uL Lymphocytes # 2.0 (1.0-4.8) k/uL Monocytes # 0.3 (0-1.0) k/uL Eosinophils # 0.8 H (0-0.7) k/uL Basophils # 0.1 (0-0.2) k/uL Hypochromasia Slight Microcytosis Slight Sodium 136 L (137-145) mmol/L Potassium 4.8 (3.5-5.1) mmol/L Chloride 105 (98-107) mmol/L Carbon Dioxide 25 (22-30) mmol/L Anion Gap 6 mmol/L BUN 12 (7-17) mg/dL Creatinine 0.78 (0.52-1.04) mg/dL Est GFR (CKD-EPI)AfAm >90 (>60 ml/min/1.73 sqM) Est GFR (CKD-EPI)NonAf 83 (>60 ml/min/1.73 sqM) Glucose 210 H (74-99) mg/dL Lactic Ac Sepsis Rflx Plasma Lactic Acid Mitchell 2.1 H* (0.7-2.0) mmol/L Calcium 8.8 (8.4-10.2) mg/dL Total Bilirubin 0.6 (0.2-1.3) mg/dL AST 25 (14-36) U/L ALT 13 (4-34) U/L Alkaline Phosphatase 78 (38-126) U/L Total Protein 6.4 (6.3-8.2) g/dL Albumin 3.4 L (3.5-5.0) g/dL Lipase 163 (23-300) U/L 05/04/20 Range/Units 21:36 WBC (3.8-10.6) k/uL RBC (3.80-5.40) m/uL Hgb (11.4-16.0) gm/dL Hct (34.0-46.0) % MCV (80.0-100.0) fL MCH (25.0-35.0) pg MCHC (31.0-37.0) g/dL RDW (11.5-15.5) % Plt Count (150-450) k/uL MPV Neutrophils % % Lymphocytes % % Monocytes % % Eosinophils % % Basophils % % Neutrophils # (1.3-7.7) k/uL Lymphocytes # (1.0-4.8) k/uL Monocytes # (0-1.0) k/uL Eosinophils # (0-0.7) k/uL Basophils # (0-0.2) k/uL Hypochromasia Microcytosis Sodium (137-145) mmol/L Potassium (3.5-5.1) mmol/L Chloride (98-107) mmol/L Carbon Dioxide (22-30) mmol/L Anion Gap mmol/L BUN (7-17) mg/dL Creatinine (0.52-1.04) mg/dL Est GFR (CKD-EPI)AfAm (>60 ml/min/1.73 sqM) Est GFR (CKD-EPI)NonAf (>60 ml/min/1.73 sqM) Glucose (74-99) mg/dL Lactic Ac Sepsis Rflx Y Plasma Lactic Acid Mitchell (0.7-2.0) mmol/L Calcium (8.4-10.2) mg/dL Total Bilirubin (0.2-1.3) mg/dL AST (14-36) U/L ALT (4-34) U/L Alkaline Phosphatase (38-126) U/L Total Protein (6.3-8.2) g/dL Albumin (3.5-5.0) g/dL Lipase (23-300) U/L - Radiology Data Radiology results: report reviewed, image reviewed CT abdomen and pelvis with contrast was obtained. Report was reviewed in its entirety. Impression by Dr. Maddox shows left colostomy with residual mild to moderate inflammatory changes about the surgical site. Borderline to mild dilation of proximal small bowel loops, suggestive of ileus versus low-grade partial small bowel obstruction. No significant fluid collection. Disposition Clinical Impression: Ileus, Abdominal pain Disposition: ADMITTED IP TO THIS [facility] Condition: Serious Decision to Admit Reason: Admit from EC Decision Date: 05/04/20 Decision Time: 23:21
[2020-05-04 21:25] LABS: Basophils # (A) 0.1 k/uL (0-0.2); Basophils % (A) 1 %; Eosinophils # (A) 0.8 k/uL (0-0.7); Eosinophils % (A) 7 %; HCT 33.9 % (34.0-46.0); HGB 10.8 gm/dL (11.4-16.0); Hypochromasia Slight; Lymphocytes % (A) 19 %; MCH 25.2 pg (25.0-35.0); MCHC 31.8 g/dL (31.0-37.0); MCV 79.1 fL (80.0-100.0); Mean Platelet Volume 7.2; Microcytosis Slight; Monocytes # (A) 0.3 k/uL (0-1.0); Monocytes % (A) 3 %; Neutrophils # (A) 7.1 k/uL (1.3-7.7); Neutrophils % (A) 68 %; Platelet Count 466 k/uL (150-450); RBC 4.29 m/uL (3.80-5.40); RDW 15.9 % (11.5-15.5); WBC 10.4 k/uL (3.8-10.6)
[2020-05-04 21:33] LABS: ALT 13 U/L (4-34); AST 25 U/L (14-36); African American GFR (CKD) >90 (>60 ml/min/1.73 sqM); Albumin 3.4 g/dL (3.5-5.0); Alkaline Phosphatase 78 U/L (38-126); Anion Gap 6 mmol/L; Blood Urea Nitrogen 12 mg/dL (7-17); Calcium 8.8 mg/dL (8.4-10.2); Carbon Dioxide 25 mmol/L (22-30); Chloride 105 mmol/L (98-107); Glucose 210 mg/dL (74-99); Lipase 163 U/L (23-300); Non-African American GFR(CKD) 83 (>60 ml/min/1.73 sqM); Sodium 136 mmol/L (137-145); Total Bilirubin 0.6 mg/dL (0.2-1.3); Total Protein 6.4 g/dL (6.3-8.2)
[2020-05-04 21:35] LABS: Potassium 4.8 mmol/L (3.5-5.1)
--- NOTE | 2020-05-04 22:13 | CT ---
EXAMINATION TYPE: CT abdomen pelvis w con DATE OF EXAM: 05/04/2020 COMPARISON: 04/26/2020. HISTORY: Abdominal pain, recent colectomy with ostomy. CT DLP: 2379.5 mGycm Automated exposure control for dose reduction was used. TECHNIQUE: Helical acquisition of images was performed from the lung bases through the pelvis. CONTRAST: Performed without Oral Contrast and with IV Contrast, patient injected with 100 mL of Isovue 300. FINDINGS: LUNG BASES: No significant abnormality is appreciated. LIVER/GB: No significant abnormality is appreciated. Cholecystectomy noted. PANCREAS: No significant abnormality is seen. SPLEEN: No significant abnormality is seen. ADRENALS: No significant abnormality is seen. KIDNEYS: No significant abnormality is seen. FREE AIR: No free air is visualized. RETROPERITONEAL ADENOPATHY: None visualized REPRODUCTIVE ORGANS: No significant abnormality is seen URINARY BLADDER: No significant abnormality is seen. PELVIC ADENOPATHY: None visualized. OSSEOUS STRUCTURES: No acute abnormality is seen. Moderate L5-S1 spondylosis with minimal grade 1 an terolisthesis. BOWEL: Redemonstration of left colostomy. Residual mild to moderate fat stranding involving the mid to lower anterior abdominal wall about the surgical bed persists. There are few borderline to mildly dilated proximal small bowel loops with transition point at the surgical site. No significant free ai r or fluid collection is seen. OTHER: None. IMPRESSION: LEFT COLOSTOMY WITH RESIDUAL MILD TO MODERATE INFLAMMATORY CHANGES ABOUT THE SURGICAL SITE. BORDERLINE TO MILD DILATATION OF PROXIMAL SMALL BOWEL LOOPS, SUGGESTIVE OF ILEUS VERSUS LOW-GRADE PAR TIAL SMALL BOWEL OBSTRUCTION. NO SIGNIFICANT FLUID COLLECTION.
[2020-05-04] MEDS ORDERED: ONDANSETRON 4 MG/2 ML VIAL IVP PRN (23:18)
[2020-05-04] MEDS ORDERED: NALOXONE 0.4 MG/ML 1 ML VIAL IV PRN (23:18)
[2020-05-05] MEDS: SODIUM CHLORIDE 0.9% 1,000 ML IV SCH ×3 (01:51→20:29)
[2020-05-05 06:18] LABS: Appearance,Urine Clear (Clear); Bacteria,Urine Rare /hpf; Bilirubin,Urine Negative (Negative); Blood,Urine Negative (Negative); Color,Urine Light Yellow; Glucose,Urine (UA) Negative (Negative); Ketones,Urine Negative (Negative); Leukocyte Esterase,Urine Moderate (Negative); Mucus,Urine Rare /hpf; Nitrite,Urine Negative (Negative); Protein,Urine Negative (Negative); RBC,Urine 2 /hpf (0-5); Specific Gravity,Urine 1.038 (1.001-1.035); Squamous Epithelial Cell,Urine 1 /hpf (0-4); Urobilinogen,Urine <2.0 mg/dL (<2.0); WBC,Urine 2 /hpf (0-5)
[2020-05-05 07:37] LABS: Glucose,Whole Blood 141 mg/dL (75-99)
[2020-05-05] MEDS ORDERED: ACETAMINOPHEN TAB 325 MG TAB PO PRN (10:19)
[2020-05-05] MEDS ORDERED: polyethylene glycoL 3350 17 GM POWD.PACK PO PRN (10:19)
[2020-05-05] MEDS ORDERED: NYSTATIN 100,000 UNIT/GM POWD 15 GM TOPICAL PRN (10:19)
[2020-05-05 11:34] LABS: Glucose,Whole Blood 126 mg/dL (75-99)
--- NOTE | 2020-05-05 11:42 | P.CONS ---
History of Present Illness - Reason for Consult type 2 diabetes mellitus - History of Present Illness patient is a pleasant 59-year-old female came in with complains of burning sensation in the surgical site area patient had a recent the T Anum and with colostomy placement. Patient denied any increased stool output, diarrhea or constipation. Patient has burning sensation around the site of colostomy along with the surgical site area. She believes she may have some redness around the surgical site area although per exam that area doesn't appear to be infected. Patient has multiple other medical problems which are fairly stable at this time . Review of Systems REVIEW OF SYSTEMS: CONSTITUTIONAL: No fever, no malaise, no fatigue. HEENT: No recent visual problems or hearing problems. Denied any sore throat. CARDIOVASCULAR: No chest pain, orthopnea, PND, no palpitations, no syncope. PULMONARY: No shortness of breath, no cough, no hemoptysis. GASTROINTESTINAL: No diarrhea, no nausea, no vomiting,. NEUROLOGICAL: No headaches, no weakness, no numbness. HEMATOLOGICAL: Denies any bleeding or petechiae. GENITOURINARY: Denies any burning micturition, frequency, or urgency. MUSCULOSKELETAL/RHEUMATOLOGICAL: Denies any joint pain, swelling, or any muscle pain. ENDOCRINE: Denies any polyuria or polydipsia. The rest of the 14-point review of systems is negative. Past Medical History Past Medical History: Asthma, COPD, CVA/TIA, Diabetes Mellitus, GERD/Reflux, Hearing Disorder / Deafness, Hyperlipidemia, Hypertension, Seizure Disorder, Sleep Apnea/CPAP/BIPAP, Thyroid Disorder Additional Past Medical History / Comment(s): additional hx: right bundle branch block,barretts esophagus, migraines, deanna hearing aids, lung nodules, fatty liver, pulmonary hypertension, heart murmur,obesity, IBS, RLS, arthritis, ADHD, DJD, anemia, lactose intolerance; last seizure 21 years ago, kidney stones x2 History of Any Multi-Drug Resistant Organisms: None Reported Past Surgical History: Bowel Resection, Cholecystectomy, Hysterectomy Additional Past Surgical History / Comment(s): breast biopsy,esophageal surgery - 2002 Past Anesthesia/Blood Transfusion Reactions: No Reported Reaction Additional Past Anesthesia/Blood Transfusion Reaction / Comm: gets nauseous at times. Past Psychological History: Anxiety, Depression Smoking Status: Never smoker Past Alcohol Use History: None Reported Past Drug Use History: None Reported - Past Family History Mother History Unknown: Yes Family Medical History: Congestive Heart Failure (CHF), Myocardial Infarction ([place]) Additional Family Medical History / Comment(s): 77 Father History Unknown: Yes Family Medical History: COPD, Myocardial Infarction ([place]) Additional Family Medical History / Comment(s): at 56 Sister(s) History Unknown: Yes Family Medical History: Myocardial Infarction ([place]) Additional Family Medical History / Comment(s): at 56 Brother(s) Family Medical History: Cancer Additional Family Medical History / Comment(s): colon cancer Medications and Allergies Home Medications Medication Instructions Recorded Confirmed Type Loratadine [Claritin] 10 mg PO HS 06/09/15 05/04/20 History rOPINIRole HCL [Requip Xl] 4 mg PO HS 06/09/15 05/04/20 History Budesonide-Formot 160-4.5 Mcg 2 puff INHALATION RT-BID 03/17/16 05/04/20 History [Symbicort 160-4.5 Mcg Inhaler] Albuterol Sulfate [Proair Hfa] 1 - 2 puff INHALATION RT-Q6H PRN 08/10/18 05/04/20 History Ticagrelor [Brilinta] 90 mg PO BID #60 tab 08/12/18 05/04/20 Rx Atorvastatin [Lipitor] 10 mg PO MOFR 04/19/20 05/04/20 History Dulaglutide [Trulicity] 1.5 mg SQ MO 04/19/20 05/04/20 History EPINEPHrine (Auto Inject) [Epipen] 0.3 mg IM ONCE PRN 04/19/20 05/04/20 History Insulin Glargine,Hum.rec.anlog 40 unit SQ HS 04/19/20 05/04/20 History [Lantus Solostar] Losartan [Cozaar] 50 mg PO BID 04/19/20 05/04/20 History Miconazole Nitrate [Lotrimin AF 1 applic TOPICAL DAILY PRN 04/19/20 05/04/20 History Powder] Sennosides/Docusate Sodium [Senna 1 tab PO HS 04/19/20 05/04/20 History Plus 8.6-50 mg Tablet] metFORMIN HCL [Glucophage] 500 mg PO BID 04/19/20 05/04/20 History Acetaminophen Tab [Tylenol] 650 mg PO Q6HR PRN tab 04/25/20 05/04/20 Rx Diltiazem Cd [Cardizem CD] 240 mg PO HS 30 Days #30 cap.er.24h 04/25/20 05/04/20 Rx polyethylene glycoL 3350 [Miralax] 17 gm PO DAILY 30 Days #30 04/25/20 05/04/20 Rx powd.pack Aspirin 81 mg PO DAILY 30 Days #30 chew 05/02/20 05/04/20 Rx hydrALAZINE HCL [Apresoline] 50 mg PO BID 30 Days #60 tab 05/02/20 05/04/20 Rx Allergies Allergy/AdvReac Type Severity Reaction Status Date / Time ammonia Allergy Unknown Verified 05/04/20 21:59 barium sulfate Allergy Unknown Verified 05/04/20 21:59 dulaglutide [From Trulicity] Allergy Dyspnea Verified 05/04/20 21:59 exenatide [From Byetta] Allergy Unknown Verified 05/04/20 21:59 feathers Allergy Unknown Verified 05/04/20 21:59 fexofenadine HCl Allergy Unknown Verified 05/04/20 21:59 [From Elena] hydrochlorothiazide Allergy Unknown Verified 05/04/20 21:59 influenza virus vaccine, Allergy Unknown Verified 05/04/20 21:59 specific isosorbide [From Imdur] Allergy Unknown Verified 05/04/20 21:59 meperidine HCl [From Demerol] Allergy Anaphylaxis Verified 05/04/20 21:59 nifedipine [From Procardia] Allergy Unknown Verified 05/04/20 21:59 nitroglycerin Allergy Unknown Verified 05/04/20 21:59 paroxetine [From Paxil] Allergy Unknown Verified 05/04/20 21:59 paroxetine HCl [From Paxil] Allergy Unknown Verified 05/04/20 21:59 sertraline HCl [From Zoloft] Allergy Unknown Verified 05/04/20 21:59 simvastatin [From Zocor] Allergy Unknown Verified 05/04/20 21:59 Cjlwyxl-Rbu-Zjg Reductase Allergy Unknown Verified 05/04/20 21:59 Inhibitor venom-honey bee Allergy Anaphylaxis Verified 05/04/20 21:59 [bee venom (honey bee)] zolpidem [From Ambien] Allergy Unknown Verified 05/04/20 21:59 zolpidem tartrate Allergy Unknown Verified 05/04/20 21:59 [From Ambien] hay Allergy Dyspnea Uncoded 05/04/20 21:59 lysol Allergy Dyspnea Uncoded 05/04/20 21:59 Physical Exam Vitals: Vital Signs Temp Pulse Pulse Resp BP BP Pulse Ox 05/05/20 07:54 97.8 F 78 18 162/97 98 05/05/20 00:11 97.5 F L 78 18 150/70 99 05/04/20 23:59 75 14 143/82 97 05/04/20 22:00 71 15 151/71 97 05/04/20 20:48 99.0 F 86 20 166/77 96 Intake and Output 05/04/20 05/05/20 05/05/20 22:59 06:59 14:59 Intake Total 600 Output Total 200 Balance -200 600 Intake: Oral 600 Output: Urine 200 Other: Voiding Method Toilet # Voids 1 Weight 106.594 kg 106.594 kg PHYSICAL EXAMINATION: GENERAL: The patient is alert and oriented x3, not in any acute distress. obese. HEENT: Pupils are round and equally reacting to light. EOMI. No scleral icterus. No conjunctival pallor. Normocephalic, atraumatic. No pharyngeal erythema. No thyromegaly. CARDIOVASCULAR: S1 and S2 present. No murmurs, rubs, or gallops. PULMONARY: Chest is clear to auscultation, no wheezing or crackles. ABDOMEN: Soft, nontender, nondistended, normoactive bowel sounds. No palpable organomegaly. the site areas appear to be clean without any infection. MUSCULOSKELETAL: No joint swelling or deformity. EXTREMITIES: No cyanosis, clubbing, or pedal edema. NEUROLOGICAL: Gross neurological examination did not reveal any focal deficits. SKIN: No rashes. Results CBC & Chem 7: 05/04/20 21:14 05/04/20 21:14 Labs: Abnormal Lab Results - Last 24 Hours (Table) 05/04/20 05/04/20 05/04/20 Range/Units 21:14 21:14 21:14 Hgb 10.8 L (11.4-16.0) gm/dL Hct 33.9 L (34.0-46.0) % MCV 79.1 L (80.0-100.0) fL RDW 15.9 H (11.5-15.5) % Plt Count 466 H (150-450) k/uL Eosinophils # 0.8 H (0-0.7) k/uL Sodium 136 L (137-145) mmol/L Glucose 210 H (74-99) mg/dL POC Glucose (mg/dL) (75-99) mg/dL Plasma Lactic Acid Mitchell 2.1 H* (0.7-2.0) mmol/L Albumin 3.4 L (3.5-5.0) g/dL Ur Specific [place] (1.001-1.035) Ur Leukocyte Esterase (Negative) Urine Bacteria (None) /hpf Urine Mucus (None) /hpf 05/05/20 05/05/20 05/05/20 Range/Units 06:00 07:35 11:33 Hgb (11.4-16.0) gm/dL Hct (34.0-46.0) % MCV (80.0-100.0) fL RDW (11.5-15.5) % Plt Count (150-450) k/uL Eosinophils # (0-0.7) k/uL Sodium (137-145) mmol/L Glucose (74-99) mg/dL POC Glucose (mg/dL) 141 H 126 H (75-99) mg/dL Plasma Lactic Acid Mitchell (0.7-2.0) mmol/L Albumin (3.5-5.0) g/dL Ur Specific [place] 1.038 H (1.001-1.035) Ur Leukocyte Esterase Moderate H (Negative) Urine Bacteria Rare H (None) /hpf Urine Mucus Rare H (None) /hpf Assessment and Plan Plan: -pain in the surgical site area: surgical sites doesn't appear to be infected further management as per and. General surgery -Type 2 diabetes mellitus: Patient will be resumed on home regimen along with sliding scale titrate the insulin depending on the blood sugars. -COPD without any acute exacerbation -Hyperlipidemia -Hypertension next and hasn't sleep disorder -Obesity with sleep apnea -Hypothyroidism -Depression Medication reconciliation was done appropriate home medications were resumed. DVT prophylaxis, pain management and surgical site area management as per primary service
--- NOTE | 2020-05-05 13:03 | P.GSHP ---
History of Present Illness H&P Date: 05/05/20 CHIEF COMPLAINT: Abdominal pain wound infection HISTORY OF PRESENT ILLNESS: The patient is a 59-year-old female status post colectomy for chronic constipation with colostomy creation. She has multiple medical coronary morbidities including morbid obesity, BMI 49.1. She reports increased redness including drainage from her midline incision. She reports no home healthcare due to being part of the [facility] [facility] program. She presented to the emergency room yesterday after developing acute sharp onset midline abdominal pain. No reports of fevers or chills. Since admission, she reports hunger. She is admitted due to abnormal computed tomography scan for ileus including abdominal pain. PAST MEDICAL HISTORY: See list and reviewed PAST SURGICAL HISTORY: See list and reviewed MEDICATIONS: See list and reviewed ALLERGIES: See list and reviewed SOCIAL HISTORY: See list and reviewed FAMILY HISTORY: See list and reviewed REVIEW OF ORGAN SYSTEMS: CONSTITUTIONAL: No fevers or chills. EYES: Denies any trouble with vision. Wears glasses. HEENT: Wears hearing aids. No nosebleeds. Has difficulty swallowing. RESPIRATORY: Has chronic obstructive pulmonary disease. Has obstructive sleep apnea. CARDIOVASCULAR: Past chest pain, palpitations, or recent heart attacks. GASTROINTESTINAL: Has change in bowel habits with chronic constipation. Has Wade's esophagus GENITOURINARY: History of kidney stones. NEUROLOGICAL: Denies any numbness or tingling along the distal extremities. Past stroke. Has seizure disorder. MUSCULOSKELETAL: Has back pain, stiffness or joint arthritis. SKIN: No current skin cancer. No rash. PSYCHIATRIC: Has depression. Has anxiety. ENDOCRINE: Has thyroid disorders. Has blood sugar glucose intolerance. HEME/LYMPHATIC: Denies any lumps and bumps around the neck. No recent deep venous thrombosis. ALLERGY/IMMUNOLOGY: No immunoglobulin therapy. No immune deficiencies. BREAST: Denies current breast lumps, pain or nipple discharge. PHYSICAL EXAM: VITALS: Reviewed CONSTITUTIONAL: Well developed and in no acute distress. EYES: Conjuctivae without sclera icterus. Pupils are equally round and reactive to light. Extraocular movements grossly intact. HEAD, EARS, NOSE, THROAT: Moist buccal mucosa. Head is atraumatic, normoce phalic. Hears conversational speech. No nasal drainage. NECK: Supple. No JV distention. No thyroidomegaly. Has short neck. RESPIRATORY: Non-labored respirations and equal bilateral excursions. No gross wheezes. CARDIOVASCULAR: Regular rate and rhythm. ABDOMEN: Protuberant. Has descending ostomy. Moderate-sized pannus over 40+ pounds. Tenderness midline with erythema MUSCULOSKELETAL: Nail and fingers with good capillary refill. SKIN: Warm and well perfused with good skin turgor. NEUROLOGIC: Cranial nerves II through XII grossly intact. Sensation upper and extremities intact. No focal or lateralizing signs. PSYCH: Appropriate affect. Alert and oriented to person, place and time. Displays appropriate insight. CLINCAL LABS: Reviewed. WBC 10.4 and normal. Hemoglobin low at 10.8. Lactate on presentation 2.1 now normal 1.4 IMAGING: Independently reviewed CT of the abdomen and pelvis without evidence of bowel obstruction. Postsurgical changes along the midline confirmed. No fluid collection or small bowel obstruction or free air identified. This is my independent interpretation. RADIOLOGY: Report reviewed with questionable ileus ASSESSMENT: 1. Intractable abdominal pain with surgical site wound infection PLAN: 1. May start of his abdominal pain is improved. 2. May shower 3. Consultation to infectious disease for surgical site infection with worsening redness and antibiotic management due to multiple drug ALLERGIES 4. Abdominal binder for comfort Thank you for this kind consultation. Past Medical History Past Medical History: Asthma, COPD, CVA/TIA, Diabetes Mellitus, GERD/Reflux, Hearing Disorder / Deafness, Hyperlipidemia, Hypertension, Seizure Disorder, Sleep Apnea/CPAP/BIPAP, Thyroid Disorder Additional Past Medical History / Comment(s): additional hx: right bundle branch block,barretts esophagus, migraines, deanna hearing aids, lung nodules, fatty liver, pulmonary hypertension, heart murmur,obesity, IBS, RLS, arthritis, ADHD, DJD, anemia, lactose intolerance; last seizure 21 years ago, kidney stones x2 History of Any Multi-Drug Resistant Organisms: None Reported Past Surgical History: Bowel Resection, Cholecystectomy, Hysterectomy Additional Past Surgical History / Comment(s): breast biopsy,esophageal surgery - 2002 Past Anesthesia/Blood Transfusion Reactions: No Reported Reaction Additional Past Anesthesia/Blood Transfusion Reaction / Comment(s): gets nauseous at times. Past Psychological History: Anxiety, Depression Smoking Status: Never smoker Past Alcohol Use History: None Reported Past Drug Use History: None Reported - Past Family History Mother History Unknown: Yes Family Medical History: Congestive Heart Failure (CHF), Myocardial Infarction ([place]) Additional Family Medical History / Comment(s): 77 Father History Unknown: Yes Family Medical History: COPD, Myocardial Infarction ([place]) Additional Family Medical History / Comment(s): at 56 Sister(s) History Unknown: Yes Family Medical History: Myocardial Infarction ([place]) Additional Family Medical History / Comment(s): at 56 Brother(s) Family Medical History: Cancer Additional Family Medical History / Comment(s): colon cancer Medications and Allergies Home Medications Medication Instructions Recorded Confirmed Type Loratadine [Claritin] 10 mg PO HS 06/09/15 05/04/20 History rOPINIRole HCL [Requip Xl] 4 mg PO HS 06/09/15 05/04/20 History Budesonide-Formot 160-4.5 Mcg 2 puff INHALATION RT-BID 03/17/16 05/04/20 History [Symbicort 160-4.5 Mcg Inhaler] Albuterol Sulfate [Proair Hfa] 1 - 2 puff INHALATION RT-Q6H PRN 08/10/18 05/04/20 History Ticagrelor [Brilinta] 90 mg PO BID #60 tab 08/12/18 05/04/20 Rx Atorvastatin [Lipitor] 10 mg PO MOFR 04/19/20 05/04/20 History Dulaglutide [Trulicity] 1.5 mg SQ MO 04/19/20 05/04/20 History EPINEPHrine (Auto Inject) [Epipen] 0.3 mg IM ONCE PRN 04/19/20 05/04/20 History Insulin Glargine,Hum.rec.anlog 40 unit SQ HS 04/19/20 05/04/20 History [Lantus Solostar] Losartan [Cozaar] 50 mg PO BID 04/19/20 05/04/20 History Miconazole Nitrate [Lotrimin AF 1 applic TOPICAL DAILY PRN 04/19/20 05/04/20 History Powder] Sennosides/Docusate Sodium [Senna 1 tab PO HS 04/19/20 05/04/20 History Plus 8.6-50 mg Tablet] metFORMIN HCL [Glucophage] 500 mg PO BID 04/19/20 05/04/20 History Acetaminophen Tab [Tylenol] 650 mg PO Q6HR PRN tab 04/25/20 05/04/20 Rx Diltiazem Cd [Cardizem CD] 240 mg PO HS 30 Days #30 cap.er.24h 04/25/20 05/04/20 Rx polyethylene glycoL 3350 [Miralax] 17 gm PO DAILY 30 Days #30 04/25/20 05/04/20 Rx powd.pack Aspirin 81 mg PO DAILY 30 Days #30 chew 05/02/20 05/04/20 Rx hydrALAZINE HCL [Apresoline] 50 mg PO BID 30 Days #60 tab 05/02/20 05/04/20 Rx Allergies Allergy/AdvReac Type Severity Reaction Status Date / Time ammonia Allergy Unknown Verified 05/04/20 21:59 barium sulfate Allergy Unknown Verified 05/04/20 21:59 dulaglutide [From Trulicity] Allergy Dyspnea Verified 05/04/20 21:59 exenatide [From Byetta] Allergy Unknown Verified 05/04/20 21:59 feathers Allergy Unknown Verified 05/04/20 21:59 fexofenadine HCl Allergy Unknown Verified 05/04/20 21:59 [From Elena] hydrochlorothiazide Allergy Unknown Verified 05/04/20 21:59 influenza virus vaccine, Allergy Unknown Verified 05/04/20 21:59 specific isosorbide [From Imdur] Allergy Unknown Verified 05/04/20 21:59 meperidine HCl [From Demerol] Allergy Anaphylaxis Verified 05/04/20 21:59 nifedipine [From Procardia] Allergy Unknown Verified 05/04/20 21:59 nitroglycerin Allergy Unknown Verified 05/04/20 21:59 paroxetine [From Paxil] Allergy Unknown Verified 05/04/20 21:59 paroxetine HCl [From Paxil] Allergy Unknown Verified 05/04/20 21:59 sertraline HCl [From Zoloft] Allergy Unknown Verified 05/04/20 21:59 simvastatin [From Zocor] Allergy Unknown Verified 05/04/20 21:59 Udbxela-Fke-Bmu Reductase Allergy Unknown Verified 05/04/20 21:59 Inhibitor venom-honey bee Allergy Anaphylaxis Verified 05/04/20 21:59 [bee venom (honey bee)] zolpidem [From Ambien] Allergy Unknown Verified 05/04/20 21:59 zolpidem tartrate Allergy Unknown Verified 05/04/20 21:59 [From Ambien] hay Allergy Dyspnea Uncoded 05/04/20 21:59 lysol Allergy Dyspnea Uncoded 05/04/20 21:59 Surgical - Exam Vital Signs Temp Pulse Resp BP Pulse Ox 99.0 F 86 20 166/77 96 05/04/20 20:48 05/04/20 20:48 05/04/20 20:48 05/04/20 20:48 05/04/20 20:48 Results - Labs 05/04/20 21:14 05/04/20 21:14 Abnormal Lab Results - Last 24 Hours (Table) 05/04/20 05/04/20 05/04/20 Range/Units 21:14 21:14 21:14 Hgb 10.8 L (11.4-16.0) gm/dL Hct 33.9 L (34.0-46.0) % MCV 79.1 L (80.0-100.0) fL RDW 15.9 H (11.5-15.5) % Plt Count 466 H (150-450) k/uL Eosinophils # 0.8 H (0-0.7) k/uL Sodium 136 L (137-145) mmol/L Glucose 210 H (74-99) mg/dL POC Glucose (mg/dL) (75-99) mg/dL Plasma Lactic Acid Mitchell 2.1 H* (0.7-2.0) mmol/L Albumin 3.4 L (3.5-5.0) g/dL Ur Specific [place] (1.001-1.035) Ur Leukocyte Esterase (Negative) Urine Bacteria (None) /hpf Urine Mucus (None) /hpf 05/05/20 05/05/20 05/05/20 Range/Units 06:00 07:35 11:33 Hgb (11.4-16.0) gm/dL Hct (34.0-46.0) % MCV (80.0-100.0) fL RDW (11.5-15.5) % Plt Count (150-450) k/uL Eosinophils # (0-0.7) k/uL Sodium (137-145) mmol/L Glucose (74-99) mg/dL POC Glucose (mg/dL) 141 H 126 H (75-99) mg/dL Plasma Lactic Acid Mitchell (0.7-2.0) mmol/L Albumin (3.5-5.0) g/dL Ur Specific [place] 1.038 H (1.001-1.035) Ur Leukocyte Esterase Moderate H (Negative) Urine Bacteria Rare H (None) /hpf Urine Mucus Rare H (None) /hpf Diabetes panel 05/04/20 Range/Units 21:14 Sodium 136 L (137-145) mmol/L Potassium 4.8 (3.5-5.1) mmol/L Chloride 105 (98-107) mmol/L Carbon Dioxide 25 (22-30) mmol/L BUN 12 (7-17) mg/dL Creatinine 0.78 (0.52-1.04) mg/dL Glucose 210 H (74-99) mg/dL Calcium 8.8 (8.4-10.2) mg/dL AST 25 (14-36) U/L ALT 13 (4-34) U/L Alkaline Phosphatase 78 (38-126) U/L Total Protein 6.4 (6.3-8.2) g/dL Albumin 3.4 L (3.5-5.0) g/dL Calcium panel 05/04/20 Range/Units 21:14 Calcium 8.8 (8.4-10.2) mg/dL Albumin 3.4 L (3.5-5.0) g/dL Pituitary panel 05/04/20 Range/Units 21:14 Sodium 136 L (137-145) mmol/L Potassium 4.8 (3.5-5.1) mmol/L Chloride 105 (98-107) mmol/L Carbon Dioxide 25 (22-30) mmol/L BUN 12 (7-17) mg/dL Creatinine 0.78 (0.52-1.04) mg/dL Glucose 210 H (74-99) mg/dL Calcium 8.8 (8.4-10.2) mg/dL Adrenal panel 05/04/20 Range/Units 21:14 Sodium 136 L (137-145) mmol/L Potassium 4.8 (3.5-5.1) mmol/L Chloride 105 (98-107) mmol/L Carbon Dioxide 25 (22-30) mmol/L BUN 12 (7-17) mg/dL Creatinine 0.78 (0.52-1.04) mg/dL Glucose 210 H (74-99) mg/dL Calcium 8.8 (8.4-10.2) mg/dL Total Bilirubin 0.6 (0.2-1.3) mg/dL AST 25 (14-36) U/L ALT 13 (4-34) U/L Alkaline Phosphatase 78 (38-126) U/L Total Protein 6.4 (6.3-8.2) g/dL Albumin 3.4 L (3.5-5.0) g/dL Assessment and Plan (1) Colostomy in place Current Visit: Yes Status: Acute Code(s): Z93.3 - COLOSTOMY STATUS SNOMED Code(s): 596114879 (2) Morbid obesity due to excess calories Current Visit: Yes Status: Acute Code(s): E66.01 - MORBID (SEVERE) OBESITY DUE TO EXCESS CALORIES SNOMED Code(s): 465040568 (3) Adult BMI 45.0-49.9 kg/sq m Current Visit: Yes Status: Acute Code(s): Z68.42 - BODY MASS INDEX [BMI] 45.0-49.9, ADULT SNOMED Code(s): 785394295 (4) Surgical site infection Current Visit: Yes Status: Acute Code(s): T81.49XA - INFECTION FOLLOWING A PROCEDURE, OTHER SURGICAL SITE, INIT SNOMED Code(s): 94243267 (5) Abdominal pain Current Visit: Yes Status: Acute Code(s): R10.9 - UNSPECIFIED ABDOMINAL PAIN SNOMED Code(s): 14636498 (6) Ileus Current Visit: Yes Status: Acute Code(s): K56.7 - ILEUS, UNSPECIFIED SNOMED Code(s): 469534540 (7) At risk for readmission to hospital Current Visit: No Status: Acute Code(s): Z91.89 - OTH PERSONAL RISK FACTORS, NOT ELSEWHERE CLASSIFIED SNOMED Code(s): 0982547182186 (8) Diabetes mellitus type 2 in obese Current Visit: Yes Status: Acute Code(s): E11.69 - TYPE 2 DIABETES MELLITUS WITH OTHER SPECIFIED COMPLICATION; E66.9 - OBESITY, UNSPECIFIED SNOMED Code(s): 37832944
[2020-05-05] MEDS ORDERED: PIPERACILLIN-TAZOBACTAM 3.375 GM in SODIUM CHLORIDE 0.9% 100 ML IVPB SCH (16:00)
[2020-05-05 16:40] LABS: Glucose,Whole Blood 142 mg/dL (75-99)
[2020-05-05] MEDS: SYMBICORT 160-4.5 MCG INHALER INHALATION SCH (19:40)
[2020-05-05 20:26] LABS: Glucose,Whole Blood 199 mg/dL (75-99)
[2020-05-05] MEDS: SENNOSIDES-DOCUSATE SODIUM 1 EACH TAB PO SCH (20:29)
[2020-05-05] MEDS: LOSARTAN 50 MG TAB PO SCH (20:29)
[2020-05-05] MEDS: DILTIAZEM CD 240 MG CAP.ER.24H PO SCH (20:30)
[2020-05-05] MEDS: INSULIN DETEMIR (LEVEMIR) 100 UNIT/ML SYR SQ SCH (20:30)
[2020-05-05] MEDS: hydrALAZINE HCL 50 MG TAB PO SCH (20:30)
[2020-05-05] MEDS: LORATADINE 10 MG TAB PO SCH (20:30)
[2020-05-05] MEDS: TICAGRELOR 90 MG TAB PO SCH (20:30)
[2020-05-05] MEDS: metFORMIN 500 MG TAB PO SCH (20:30)
[2020-05-05] MEDS: AMPICILLIN-SULBACTAM 3 GM in SODIUM CHLORIDE 0.9% 100 ML IVPB SCH (23:18)
--- NOTE | 2020-05-05 23:24 | CONS ---
CONSULTATION DATE OF CONSULTATION: 05/05/2020. REASON FOR CONSULTATION: Antibiotic management. HISTORY OF PRESENT ILLNESS: The patient is a 59-year-old female who is status post colectomy for chronic constipation with colostomy creation in this patient presenting to the hospital with abdominal pain and redness on the incision site and some pain and discomfort between the incision and the colostomy. The patient's symptoms have been getting worse for a day or 2 before presentation to hospital. The patient described the abdominal pain to be more of a dull aching and at times colicky, 5 to 6 out of 10 and no radiation. She is complaining of some erythema around the part of the abdominal incision and did have some. Drainage with these symptoms, the patient was evaluated by the ER physician. On arrival to the ER, the patient did have a low-grade fever of 99 degrees Fahrenheit. The patient is afebrile since then. Her white count was normal. The patient did have a CT of abdomen and pelvis which was reported as residual ceox-ip-rbfysqzy fat stranding involving the mid to lower anterior abdominal wall about the surgical bed persists, few borderline mildly dilated proximal small bowel loops. No evidence of any fluid collection. Patient was admitted to the hospital. Infectious disease was consulted for further management of antibiotic therapy. REVIEW OF SYSTEMS: Positive points have been mentioned in HPI. Rest of systems are negative. PAST MEDICAL HISTORY: Asthma, COPD, CVA, TIA, diabetes, gastroesophageal reflux disease, hyperlipidemia, hypertension, seizure disorder, sleep apnea. PAST SURGICAL HISTORY: Cholecystectomy hysterectomy, bowel resection. SOCIAL HISTORY: Denies smoking, drinking or any drug use. FAMILY HISTORY: Congestive heart failure, AL in his mother, father history of COPD and AL. ALLERGIES: TO MULTIPLE MEDICATIONS LISTED ON THE CHART and were reviewed. MEDICATIONS: Include the patient is currently on Tylenol, Ventolin, aspirin, Lipitor, Symbicort, Cardizem, hydralazine, Dilaudid, Levemir, Claritin, Cozaar, Glucophage, Narcan, Requip, Senokot, and IV fluid. PHYSICAL EXAMINATION: Her blood pressure is 148/83 with a pulse of 83, temperature 98. She is 94% on room air. General description is a middle-aged female lying in bed in no distress. No tachypnea or accessory muscle respiration use. HEENT: Examination shows slight pallor. No scleral icterus. Oral mucous membranes dry. No pharyngeal erythema or thrush. NECK: Trachea central. No thyromegaly. LUNGS: Unlabored breathing. Clear to auscultation. HEART S1, S2. Regular rate. ABDOMEN: Soft. Midline incision minimal erythema. She did have 2 open areas which has been packed with Aquacel Silver. No purulent drainage was noticed. No significant induration. EXTREMITIES: Some trace edema of the feet. SKIN examination: No rash or mass palpable. NEUROLOGICAL: Patient is awake, alert and oriented times three. Mood and affect normal. LABS: Hemoglobin is 10.1, white count 10.4 with a BUN of 12, creatinine 0.78. Lactic acid 2.1. Repeat is 1.4. DIAGNOSTIC IMPRESSION AND PLAN: Patient admitted to the hospital with abdominal pain, erythema around the midline incision site in this patient who is status post left colectomy for a chronic constipation with concern for possible mild incisional cellulitis and there was no evidence of any deep abscess on the CT. We will need to cover for both gram-positive skin farhan as well as enteric gram-negative pathogen. PLAN: 1. We will start the patient on Unasyn 3 grams q.6 hours. 2. to obtain culture both aerobic and anaerobic. 3. If the patient clinically responded to Unasyn, plan for oral Augmentin on discharge. 4. We will follow on clinical condition and further adjust medication if needed. Thank you for this consultation. Will follow this patient along with you. MMODL / IJN: [id number] /
[2020-05-06] MEDS: ALBUTEROL NEBULIZED 2.5 MG/3 ML INHALATION PRN ×2 (02:00→09:11)
[2020-05-06] MEDS: SODIUM CHLORIDE 0.9% 1,000 ML IV SCH ×3 (05:32→23:10)
[2020-05-06] MEDS: AMPICILLIN-SULBACTAM 3 GM in SODIUM CHLORIDE 0.9% 100 ML IVPB SCH ×4 (05:34→23:08)
[2020-05-06 07:20] LABS: Glucose,Whole Blood 116 mg/dL (75-99)
[2020-05-06 07:35] LABS: Basophils # (A) 0.1 k/uL (0-0.2); Basophils % (A) 1 %; Eosinophils # (A) 0.6 k/uL (0-0.7); Eosinophils % (A) 8 %; HCT 33.2 % (34.0-46.0); HGB 10.8 gm/dL (11.4-16.0); Hypochromasia Slight; Lymphocytes # (A) 1.5 k/uL (1.0-4.8); Lymphocytes % (A) 19 %; MCH 26.2 pg (25.0-35.0); MCHC 32.4 g/dL (31.0-37.0); MCV 80.9 fL (80.0-100.0); Mean Platelet Volume 6.4; Monocytes # (A) 0.3 k/uL (0-1.0); Monocytes % (A) 4 %; Neutrophils # (A) 5.2 k/uL (1.3-7.7); Neutrophils % (A) 66 %; Platelet Count 344 k/uL (150-450); RBC 4.11 m/uL (3.80-5.40); RDW 15.9 % (11.5-15.5); WBC 7.9 k/uL (3.8-10.6)
[2020-05-06] MEDS: ASPIRIN 81 MG PO SCH (08:09)
[2020-05-06] MEDS: LOSARTAN 50 MG TAB PO SCH ×2 (08:10→21:52)
[2020-05-06] MEDS: metFORMIN 500 MG TAB PO SCH ×2 (08:10→21:52)
[2020-05-06] MEDS: hydrALAZINE HCL 50 MG TAB PO SCH ×2 (08:10→21:53)
[2020-05-06] MEDS: TICAGRELOR 90 MG TAB PO SCH ×2 (08:11→21:53)
[2020-05-06] MEDS ORDERED: NON FORMULARY DRUG (Dulaglutide [Trulicity] 1.5 MG/0.5 ML Pen.Injctr) SQ SCH (09:00)
[2020-05-06] MEDS: SYMBICORT 160-4.5 MCG INHALER INHALATION SCH ×2 (09:11→19:40)
[2020-05-06 09:29] LABS: African American GFR (CKD) 92.2 (60.0-200.0); BUN/Creat Ratio 12.5 Ratio (12.00-20.00); C Reactive Protein 1.6 mg/dL (0.0-0.8); Calcium 8.6 mg/dL (8.7-10.3); Non-African American GFR(CKD) 79.6 (60.0-200.0); Potassium 4.4 mmol/L (3.5-5.5)
[2020-05-06 11:43] LABS: Glucose,Whole Blood 143 mg/dL (75-99)
--- NOTE | 2020-05-06 11:52 | P.DS ---
Providers Date of admission: 05/04/20 23:25 Expected date of discharge: 05/06/20 Attending physician: Rosas Ceron Consults: 05/04/20 23:19 Consult Physician Routine Consulting Provider: Maik Sanchez Consult Reason/Comments: Medical management Do you want consulting provider notified?: Yes 05/05/20 12:50 Consult Physician Routine Consulting Provider: Diego Thomas Consult Reason/Comments: Antibiotic management Do you want consulting provider notified?: Yes Primary care physician: [facility] Hospital Course: Discharge diagnosis 1. Intractable abdominal pain with surgical site wound infection and cellulitis Hospital course This is a 59-year-old female status post colectomy for chronic constipation with colostomy creation. She reports increased redness including drainage from her midline incision. She presented to the emergency room yesterday after developing acute sharp onset midline abdominal pain. Patient had computed tomography scan of the abdomen and pelvis showing a left colostomy with residual mild to moderate inflammatory changes about the surgical site. Patient started on IV antibiotics for cellulitis and infection at surgical site. Patient seen by infectious disease. They're recommending Augmentin at discharge. Patient has had improvement of the redness around her incision site. Her ostomy is functioning. She is tolerating diet. She is stable for discharge. Physician [employer] note has been reviewed by physician. Signing provider agrees with the documented findings, assessment, and plan of care. Patient Condition at Discharge: Stable Plan - Discharge Summary New Discharge Prescriptions: No Action Loratadine [Claritin] 10 mg PO HS rOPINIRole HCL [Requip Xl] 4 mg PO HS Budesonide-Formot 160-4.5 Mcg [Symbicort 160-4.5 Mcg Inhaler] 2 puff INHALATION RT-BID Albuterol Sulfate [Proair Hfa] 1 - 2 puff INHALATION RT-Q6H PRN PRN Reason: Shortness Of Breath Ticagrelor [Brilinta] 90 mg PO BID #60 tab EPINEPHrine (Auto Inject) [Epipen] 0.3 mg IM ONCE PRN PRN Reason: Anaphylaxis Dulaglutide [Trulicity] 1.5 mg SQ MO metFORMIN HCL [Glucophage] 500 mg PO BID Atorvastatin [Lipitor] 10 mg PO MOFR Sennosides/Docusate Sodium [Senna Plus 8.6-50 mg Tablet] 1 tab PO HS Insulin Glargine,Hum.rec.anlog [Lantus Solostar] 40 unit SQ HS Miconazole Nitrate [Lotrimin AF Powder] 1 applic TOPICAL DAILY PRN PRN Reason: Rash Losartan [Cozaar] 50 mg PO BID Diltiazem Cd [Cardizem CD] 240 mg PO HS 30 Days #30 cap.er.24h polyethylene glycoL 3350 [Miralax] 17 gm PO DAILY 30 Days #30 powd.pack Acetaminophen Tab [Tylenol] 650 mg PO Q6HR PRN tab PRN Reason: Fever And/ Or Pain hydrALAZINE HCL [Apresoline] 50 mg PO BID 30 Days #60 tab Aspirin 81 mg PO DAILY 30 Days #30 chew Discharge Medication List Loratadine [Claritin] 10 mg PO HS 06/09/15 [History] rOPINIRole HCL [Requip Xl] 4 mg PO HS 06/09/15 [History] Budesonide-Formot 160-4.5 Mcg [Symbicort 160-4.5 Mcg Inhaler] 2 puff INHALATION RT-BID 03/17/16 [History] Albuterol Sulfate [Proair Hfa] 1 - 2 puff INHALATION RT-Q6H PRN 08/10/18 [History] Ticagrelor [Brilinta] 90 mg PO BID #60 tab 08/12/18 [Rx] Atorvastatin [Lipitor] 10 mg PO MOFR 04/19/20 [History] Dulaglutide [Trulicity] 1.5 mg SQ MO 04/19/20 [History] EPINEPHrine (Auto Inject) [Epipen] 0.3 mg IM ONCE PRN 04/19/20 [History] Insulin Glargine,Hum.rec.anlog [Lantus Solostar] 40 unit SQ HS 04/19/20 [History] Losartan [Cozaar] 50 mg PO BID 04/19/20 [History] Miconazole Nitrate [Lotrimin AF Powder] 1 applic TOPICAL DAILY PRN 04/19/20 [History] Sennosides/Docusate Sodium [Senna Plus 8.6-50 mg Tablet] 1 tab PO HS 04/19/20 [History] metFORMIN HCL [Glucophage] 500 mg PO BID 04/19/20 [History] Acetaminophen Tab [Tylenol] 650 mg PO Q6HR PRN tab 04/25/20 [Rx] Diltiazem Cd [Cardizem CD] 240 mg PO HS 30 Days #30 cap.er.24h 04/25/20 [Rx] polyethylene glycoL 3350 [Miralax] 17 gm PO DAILY 30 Days #30 powd.pack 04/25/20 [Rx] Aspirin 81 mg PO DAILY 30 Days #30 chew 05/02/20 [Rx] hydrALAZINE HCL [Apresoline] 50 mg PO BID 30 Days #60 tab 05/02/20 [Rx] Follow up Appointment(s)/Referral(s): [facility],Clinic [Primary Care Provider] - 1-2 days Rosas Ceron MD [Medical Doctor] - 1 Week Activity/Diet/Wound Care/Special Instructions: Medicine to complete med rec Discharge Disposition: HOME WITH HOME HEALTH SERVICES
--- NOTE | 2020-05-06 12:48 | P.PN ---
<Na Collazo - Last Filed: 05/06/20 12:43> Subjective Progress Note Date: 05/06/20 CHIEF COMPLAINT: Abdominal pain HISTORY OF PRESENT ILLNESS: The patient is a 59-year-old female status post colectomy for chronic constipation with colostomy creation. Patient is being followed for surgical site wound infection and cellulitis. She's had decrease in erythema at the incision site. She denies any abdominal pain. She is having stool through her ostomy. Afebrile. WBC 7.9. She's followed by infectious disease who recommends one more day of IV antibiotics. Apparently patient has had issues with home care coming up to see her. Discussed with nurse outreach case manager. Patient has [facility]. PHYSICAL EXAM: VITAL SIGNS: Reviewed. GENERAL: Well-developed in no acute distress. HEENT: No sclera icterus. Extraocular movements grossly intact. Moist buccal mucosa. Head is atraumatic, normocephalic. ABDOMEN: Soft. Obese Nondistended. Nontender. Mid incision mild erythema. The redness between the incision and colostomy has resolved. Minimal clear drainage from incision. 2 marie in incision NEUROLOGIC: Alert and oriented. Cranial nerves II through XII grossly intact. ASSESSMENT: 1. Intractable abdominal pain with surgical site wound infection and cellulitis PLAN: -Continue IV antibiotics for 1 more day per infectious disease -Continue wound care -programs manager to arrange home care -Continue stool softener and MiraLAX -Anticipate discharge possibly tomorrow Physician Assurance Services Manager Health Care note has been reviewed by physician. Signing provider agrees with the documented findings, assessment, and plan of care. Objective - Vital Signs Vital signs: Vital Signs Temp 98.0 F 05/06/20 07:23 Pulse 86 05/06/20 09:23 Resp 17 05/06/20 08:00 BP 142/78 05/06/20 07:23 Pulse Ox 97 05/06/20 07:23 Intake & Output 05/05/20 05/06/20 05/06/20 18:59 06:59 18:59 Intake Total 900 1100 Balance 900 1100 Intake: Intake, IV Titration 1100 Amount Ampicillin-Sulbactam 3 gm 200 In Sodium Chloride 0.9% 100 ml @ 200 mls/hr IVPB Q6HR [facility] Rx#:[id number] Piperacillin-Tazobactam 3 100 .375 gm In Sodium Chloride 0.9% 100 ml @ 25 mls/hr IVPB Q8HR [facility] Rx# :[id number] Sodium Chloride 0.9% 1, 800 000 ml @ 100 mls/hr IV . Q10H [facility] Rx#:[id number] Oral 700 Other 200 Other: Voiding Method Toilet Toilet # Voids 1 3 - Labs CBC & Chem 7: 05/06/20 06:46 05/06/20 06:46 Labs: Abnormal Lab Results - Last 24 Hours (Table) 05/05/20 05/05/20 05/06/20 Range/Units 16:38 20:25 06:46 Hgb 10.8 L (11.4-16.0) gm/dL Hct 33.2 L (34.0-46.0) % RDW 15.9 H (11.5-15.5) % POC Glucose (mg/dL) 142 H 199 H (75-99) mg/dL Calcium (8.7-10.3) mg/dL C-Reactive Protein (0.0-0.8) mg/dL 05/06/20 05/06/20 05/06/20 Range/Units 06:46 07:18 11:42 Hgb (11.4-16.0) gm/dL Hct (34.0-46.0) % RDW (11.5-15.5) % POC Glucose (mg/dL) 116 H 143 H (75-99) mg/dL Calcium 8.6 L (8.7-10.3) mg/dL C-Reactive Protein 1.6 H (0.0-0.8) mg/dL <Rosas Ceron - Last Filed: 05/06/20 14:24> Subjective As above. Patient doing better. Ostomy functioning better as well. Tolerating diet. Area of erythema along midline incision is improved. Patient still has significant edema of her pannus. Anticipate discharge tomorrow on oral antibiotics. Home care being arranged. Objective - Vital Signs Vital signs: Vital Signs Temp 98.0 F 05/06/20 07:23 Pulse 86 05/06/20 09:23 Resp 17 05/06/20 08:00 BP 142/78 05/06/20 07:23 Pulse Ox 97 05/06/20 07:23 Intake & Output 0105/06/20 05/06/20 18:59 06:59 18:59 Intake Total 900 1100 Balance 900 1100 Intake: Intake, IV Titration 1100 Amount Ampicillin-Sulbactam 3 gm 200 In Sodium Chloride 0.9% 100 ml @ 200 mls/hr IVPB Q6HR [facility] Rx#:[id number] Piperacillin-Tazobactam 3 100 .375 gm In Sodium Chloride 0.9% 100 ml @ 25 mls/hr IVPB Q8HR [facility] Rx# :[id number] Sodium Chloride 0.9% 1, 800 000 ml @ 100 mls/hr IV . Q10H [facility] Rx#:[id number] Oral 700 Other 200 Other: Voiding Method Toilet Toilet # Voids 1 3 - Labs CBC & Chem 7: 05/06/20 06:46 05/06/20 06:46 Labs: Abnormal Lab Results - Last 24 Hours (Table) 05/05/20 05/05/20 05/06/20 Range/Units 16:38 20:25 06:46 Hgb 10.8 L (11.4-16.0) gm/dL Hct 33.2 L (34.0-46.0) % RDW 15.9 H (11.5-15.5) % POC Glucose (mg/dL) 142 H 199 H (75-99) mg/dL Calcium (8.7-10.3) mg/dL C-Reactive Protein (0.0-0.8) mg/dL 05/06/20 05/06/20 05/06/20 Range/Units 06:46 07:18 11:42 Hgb (11.4-16.0) gm/dL Hct (34.0-46.0) % RDW (11.5-15.5) % POC Glucose (mg/dL) 116 H 143 H (75-99) mg/dL Calcium 8.6 L (8.7-10.3) mg/dL C-Reactive Protein 1.6 H (0.0-0.8) mg/dL
--- NOTE | 2020-05-06 13:44 | PN ---
PROGRESS NOTE DATE OF SERVICE: 05/06/2020 REASON FOR FOLLOWUP: Abdominal wall cellulitis. INTERVAL HISTORY: The patient is currently afebrile. The patient is feeling better. The patient's abdominal pain has slightly decreased. Denies having any chest pain or shortness of breath or cough. No diarrhea. PHYSICAL EXAMINATION: Blood pressure 142/78 with a pulse of 80, temperature 98. She is 97% on room air. General description is a middle-aged female up in the bed in no distress. RESPIRATORY SYSTEM: Unlabored breathing, decreased breath sounds at the bases. No wheeze. HEART: S1, S2. Regular rate and rhythm. ABDOMEN: Soft. Incision redness slightly decreased. No drainage was noticed. No significant redness or induration. LABS: Hemoglobin 10.8, white count 7.9, BUN of 10, creatinine 0.8. DIAGNOSTIC IMPRESSION AND PLAN: Patient with abdominal wall cellulitis in this patient with recent laparotomy. Recommend give the patient IV Unasyn another 24 hours as the patient continues to improve, finish therapy with oral Augmentin. MMODL / IJN: [id number] /
[2020-05-06] MEDS: HYDROmorphone 1 MG/ML 1 ML SYRINGE IVP PRN (14:13)
--- NOTE | 2020-05-06 14:53 | P.PN ---
Subjective patient is a pleasant 59-year-old female came in with complains of burning sensation in the surgical site area patient had a recent the T Anum and with colostomy placement. Patient denied any increased stool output, diarrhea or constipation. Patient has burning sensation around the site of colostomy along with the surgical site area. She believes she may have some redness around the surgical site area although per exam that area doesn't appear to be infected. Patient has multiple other medical problems which are fairly stable at this time . 05/06/2020 Patient was having significant purulent drainage from the wound and wound cultures were obtained and patient was started on Unasyn. Constitutional: Denied any fatigue denied any fever. Cardio vascular: denied any chest pain, palpitations Gastrointestinal denied any nausea vomiting Pulmonary: Denied any shortness of breath cough Neurologic denied any new focal deficits All inpatient medications were reviewed and appropriate changes in these medications as dictated in the interval history and assessment and plan. Objective - Vital Signs Vital signs: Vital Signs Temp 97.6 F 05/06/20 14:00 Pulse 85 05/06/20 14:00 Resp 18 05/06/20 14:00 BP 138/80 05/06/20 14:00 Pulse Ox 97 05/06/20 14:00 Intake & Output 05/05/20 05/06/20 05/06/20 18:59 06:59 18:59 Intake Total 900 1100 Balance 900 1100 Intake: Intake, IV Titration 1100 Amount Ampicillin-Sulbactam 3 gm 200 In Sodium Chloride 0.9% 100 ml @ 200 mls/hr IVPB Q6HR [facility] Rx#:[id number] Piperacillin-Tazobactam 3 100 .375 gm In Sodium Chloride 0.9% 100 ml @ 25 mls/hr IVPB Q8HR [facility] Rx# :[id number] Sodium Chloride 0.9% 1, 800 000 ml @ 100 mls/hr IV . Q10H [facility] Rx#:[id number] Oral 700 Other 200 Other: Voiding Method Toilet Toilet # Voids 1 3 - Exam PHYSICAL EXAMINATION: GENERAL: The patient is alert and oriented x3, not in any acute distress. obese. HEENT: Pupils are round and equally reacting to light. EOMI. No scleral icterus. No conjunctival pallor. Normocephalic, atraumatic. No pharyngeal erythema. No thyromegaly. CARDIOVASCULAR: S1 and S2 present. No murmurs, rubs, or gallops. PULMONARY: Chest is clear to auscultation, no wheezing or crackles. ABDOMEN: Soft, nontender, nondistended, normoactive bowel sounds. No palpable organomegaly. the site areas appear to be clean without any infection. Although no significant purulent drainage coming out of it. MUSCULOSKELETAL: No joint swelling or deformity. EXTREMITIES: No cyanosis, clubbing, or pedal edema. NEUROLOGICAL: Gross neurological examination did not reveal any focal deficits. SKIN: No rashes. - Labs CBC & Chem 7: 05/06/20 06:46 05/06/20 06:46 Labs: Abnormal Lab Results - Last 24 Hours (Table) 05/05/20 05/05/20 05/06/20 Range/Units 16:38 20:25 06:46 Hgb 10.8 L (11.4-16.0) gm/dL Hct 33.2 L (34.0-46.0) % RDW 15.9 H (11.5-15.5) % POC Glucose (mg/dL) 142 H 199 H (75-99) mg/dL Calcium (8.7-10.3) mg/dL C-Reactive Protein (0.0-0.8) mg/dL 05/06/20 05/06/20 05/06/20 Range/Units 06:46 07:18 11:42 Hgb (11.4-16.0) gm/dL Hct (34.0-46.0) % RDW (11.5-15.5) % POC Glucose (mg/dL) 116 H 143 H (75-99) mg/dL Calcium 8.6 L (8.7-10.3) mg/dL C-Reactive Protein 1.6 H (0.0-0.8) mg/dL Assessment and Plan Plan: -pain in the surgical site area: With possible infection of the surgical site patient is on Unasyn awaiting wound cultures infectious disease evaluated the patient -Type 2 diabetes mellitus: Patient will be resumed on home regimen along with sliding scale titrate the insulin depending on the blood sugars. -COPD without any acute exacerbation -Hyperlipidemia -Hypertension next and hasn't sleep disorder -Obesity with sleep apnea -Hypothyroidism -Depression Continue with present medications will continue to follow the patient.
[2020-05-06 16:51] LABS: Glucose,Whole Blood 147 mg/dL (75-99)
[2020-05-06 19:30] LABS: Glucose,Whole Blood 174 mg/dL (75-99)
[2020-05-06] MEDS ORDERED: ATORVASTATIN 10 MG TAB PO SCH (21:00)
[2020-05-06] MEDS: SENNOSIDES-DOCUSATE SODIUM 1 EACH TAB PO SCH (21:52)
[2020-05-06] MEDS: DILTIAZEM CD 240 MG CAP.ER.24H PO SCH (21:52)
[2020-05-06] MEDS: LORATADINE 10 MG TAB PO SCH (21:52)
[2020-05-06] MEDS: INSULIN DETEMIR (LEVEMIR) 100 UNIT/ML SYR SQ SCH (21:56)
[2020-05-07] MEDS: AMPICILLIN-SULBACTAM 3 GM in SODIUM CHLORIDE 0.9% 100 ML IVPB SCH ×5 (05:44→23:42)
[2020-05-07 06:48] LABS: Glucose,Whole Blood 130 mg/dL (75-99)
[2020-05-07] MEDS: LOSARTAN 50 MG TAB PO SCH ×2 (08:27→22:19)
[2020-05-07] MEDS: metFORMIN 500 MG TAB PO SCH ×2 (08:27→22:19)
[2020-05-07] MEDS: hydrALAZINE HCL 50 MG TAB PO SCH ×2 (08:27→22:18)
[2020-05-07] MEDS: ASPIRIN 81 MG PO SCH (08:28)
[2020-05-07] MEDS: TICAGRELOR 90 MG TAB PO SCH ×2 (08:28→22:18)
[2020-05-07] MEDS: SYMBICORT 160-4.5 MCG INHALER INHALATION SCH ×2 (09:38→20:16)
[2020-05-07] MEDS: ALBUTEROL NEBULIZED 2.5 MG/3 ML INHALATION PRN ×2 (09:38→20:16)
--- NOTE | 2020-05-07 11:04 | P.PN ---
<Na Collazo - Last Filed: 05/07/20 10:54> Subjective Progress Note Date: 05/07/20 CHIEF COMPLAINT: Abdominal pain HISTORY OF PRESENT ILLNESS: The patient is a 59-year-old female status post colectomy for chronic constipation with colostomy creation. Patient is being followed for surgical site wound infection and cellulitis. She's had decrease in erythema at the incision site. Patient's ostomy is functioning. Today she is complaining of burning sensation around the ostomy. She does have significant skin irritation to around the ostomy. Infectious disease has added nystatin powder for skin irritation. Consult has been placed for ostomy nurse. Afebrile. customer development manager is arranging home care with [facility]. PHYSICAL EXAM: VITAL SIGNS: Reviewed. GENERAL: Well-developed in no acute distress. HEENT: No sclera icterus. Extraocular movements grossly intact. Moist buccal mucosa. Head is atraumatic, normocephalic. ABDOMEN: Soft. Obese Nondistended. Nontender. Mild incision erythema c ontinues to improve. The redness between the incision and colostomy has resolved. 2 marie in incision. Skin around his stoma is red, inflamed and irritated NEUROLOGIC: Alert and oriented. Cranial nerves II through XII grossly intact. ASSESSMENT: 1. Intractable abdominal pain with surgical site wound infection and cellulitis PLAN: -Patient is currently on Unasyn and infectious disease is recommending Augmentin at time of discharge -Consult ostomy nurse regarding skin irritation around the stoma -Continue wound care -customer development manager to arrange home care -Continue stool softener and MiraLAX Physician Senior Linux Administrator note has been reviewed by physician. Signing provider agrees with the documented findings, assessment, and plan of care. Objective - Vital Signs Vital signs: Vital Signs Temp 97.8 F 05/07/20 07:37 Pulse 79 05/07/20 09:48 Resp 20 05/07/20 07:37 BP 162/78 05/07/20 07:37 Pulse Ox 97 05/07/20 09:39 Intake & Output 05/06/20 05/07/20 05/07/20 18:59 06:59 18:59 Intake Total 240 Balance 240 Intake: Oral 240 Other: Voiding Method Toilet Toilet # Voids 3 1 - Labs CBC & Chem 7: 05/06/20 06:46 05/06/20 06:46 Labs: Abnormal Lab Results - Last 24 Hours (Table) 05/06/20 05/06/20 05/06/20 Range/Units 11:42 16:49 19:30 POC Glucose (mg/dL) 143 H 147 H 174 H (75-99) mg/dL 05/07/20 Range/Units 06:47 POC Glucose (mg/dL) 130 H (75-99) mg/dL <Rosas Ceron - Last Filed: 05/07/20 13:18> Subjective As above. Patient having irritation or ileostomy site. Await evaluation by ostomy nurse today. Anticipate discharge tomorrow. Objective - Vital Signs Vital signs: Vital Signs Temp 97.8 F 05/07/20 07:37 Pulse 79 05/07/20 09:48 Resp 20 05/07/20 07:37 BP 162/78 05/07/20 07:37 Pulse Ox 97 05/07/20 09:39 Intake & Output 05/06/20 05/07/20 05/07/20 18:59 06:59 18:59 Intake Total 240 Balance 240 Intake: Oral 240 Other: Voiding Method Toilet Toilet # Voids 3 1 - Labs CBC & Chem 7: 05/06/20 06:46 05/06/20 06:46 Labs: Abnormal Lab Results - Last 24 Hours (Table) 05/06/20 05/06/20 05/07/20 Range/Units 16:49 19:30 06:47 POC Glucose (mg/dL) 147 H 174 H 130 H (75-99) mg/dL 05/07/20 Range/Units 11:51 POC Glucose (mg/dL) 117 H (75-99) mg/dL
[2020-05-07 11:52] LABS: Glucose,Whole Blood 117 mg/dL (75-99)
--- NOTE | 2020-05-07 13:05 | PN ---
PROGRESS NOTE DATE OF SERVICE: 05/07/2020 REASON FOR FOLLOWUP: Abdominal wall cellulitis. INTERVAL HISTORY: The patient is currently afebrile. The patient is feeling better. Breathing comfortably. Denies having any chest pain or shortness of breath or cough. Pain and discomfort to the incision area has improved. No worsening drainage. PHYSICAL EXAMINATION: Blood pressure is 162/78 with a pulse of 79, temperature 97.8. She is 98% on 2 L nasal cannula. General description is a middle-aged female lying in bed in no distress. RESPIRATORY SYSTEM: Unlabored breathing, clear to auscultation anteriorly. HEART: S1, S2. Regular rate and rhythm. ABDOMEN: Midline incision redness has improved. No purulent drainage noticed. She was noted to have some irritation around her colostomy site. LABS: No new labs have been obtained today. DIAGNOSTIC IMPRESSION AND PLAN: 1. Patient with abdominal incision site cellulitis, responded to Unasyn, finishing therapy with oral Augmentin, prescription sent to pharmacy. 2. Patient did have some irritation around her colostomy site. We will advise cream or nystatin powder. Discussed with the RN. Continue supportive care. MMODL / IJN: [id number] /
--- NOTE | 2020-05-07 14:26 | P.PN ---
Subjective Progress Note Date: 05/07/20 Patient is a pleasant 59-year-old female came in with complains of burning sensation in the surgical site area patient had a recent partial colectomy and with colostomy placement. Patient denied any increased stool output, diarrhea or constipation. Patient has burning sensation around the site of colostomy along with the surgical site area. She believes she may have some redness around the surgical site area although per exam that area doesn't appear to be infected. Patient has multiple other medical problems which are fairly stable at this time . 05/06/2020 Patient was having significant purulent drainage from the wound and wound cultures were obtained and patient was started on Unasyn. 05/07/2020 Patient is seen and evaluated in follow-up with no acute overnight issues. Drainage continues to be noted from the bottom of the surgical site and patient is having some irritation around the ostomy which nystatin powder has been ordered. Patient does have some moisture noted around the site. Stool is noted in the ostomy as well and patient is tolerating diet with no reports of nausea o r vomiting. Patient is maintained on IV Unasyn and will continue at this time. Infectious disease is following. She will likely transition to oral antibiotics upon discharge. Blood sugars Being monitored and fairly controlled with long- acting and will continue at this time. IV fluids discontinued. Constitutional: Denied any fatigue denied any fever. Cardio vascular: denied any chest pain, palpitations Gastrointestinal denied any nausea vomiting Pulmonary: Denied any shortness of breath cough Neurologic denied any new focal deficits All inpatient medications were reviewed and appropriate changes in these medications as dictated in the interval history and assessment and plan. Objective - Vital Signs Vital signs: Vital Signs Temp 97.8 F 05/07/20 07:37 Pulse 79 05/07/20 09:48 Resp 20 05/07/20 07:37 BP 162/78 05/07/20 07:37 Pulse Ox 97 05/07/20 09:39 Intake & Output 05/06/20 05/07/20 05/07/20 18:59 06:59 18:59 Intake Total 240 Balance 240 Intake: Oral 240 Other: Voiding Method Toilet Toilet # Voids 3 1 - Exam GENERAL: The patient is alert and oriented x3, not in any acute distress. obese. HEENT: Pupils are round and equally reacting to light. EOMI. No scleral icterus. No conjunctival pallor. Normocephalic, atraumatic. No pharyngeal erythema. No thyromegaly. CARDIOVASCULAR: S1 and S2 present. No murmurs, rubs, or gallops. PULMONARY: Chest is clear to auscultation, no wheezing or crackles. ABDOMEN: Soft, nontender, nondistended, normoactive bowel sounds. No palpable organomegaly. the site areas appear to be clean without any infection. Continued drainage from the bottom of the surgical site and dressing was recently changed and currently dry and intact. Ostomy noted on the left with stool and gas in the ostomy as well. MUSCULOSKELETAL: No joint swelling or deformity. EXTREMITIES: No cyanosis, clubbing, or pedal edema. NEUROLOGICAL: Gross neurological examination did not reveal any focal deficits. SKIN: No rashes. - Labs CBC & Chem 7: 05/06/20 06:46 05/06/20 06:46 Labs: Abnormal Lab Results - Last 24 Hours (Table) 05/06/20 05/06/20 05/07/20 Range/Units 16:49 19:30 06:47 POC Glucose (mg/dL) 147 H 174 H 130 H (75-99) mg/dL 05/07/20 Range/Units 11:51 POC Glucose (mg/dL) 117 H (75-99) mg/dL Assessment and Plan Assessment: -pain in the surgical site area: With possible infection of the surgical site. Patient is maintained on IV Unasyn and will continue at this time and will transition to oral Augmentin upon discharge. Infectious disease is following -Type 2 diabetes mellitus: Patient continued on 40 units of Levemir at night and will continue. Continue to monitor blood sugars before meals and at bedtime -COPD without any acute exacerbation -Hyperlipidemia -Hypertension -sleep disorder -Obesity -sleep apnea -Hypothyroidism -Depression Plan: Continue current medications. Continue to follow along with surgery during hospitalization. Patient is maintained on IV antibiotics in the form of Unasyn and we'll transition to oral Augmentin upon discharge. Infectious disease is also following. Instructed the patient increase activity as tolerated. Patient is tolerating diet. Continue with long-acting insulin and Accu-Cheks before meals and at bedtime. Conditions to follow. Possible discharge in 24 hours.
[2020-05-07] MEDS: HYDROmorphone 1 MG/ML 1 ML SYRINGE IVP PRN (15:55)
[2020-05-07] MEDS: NYSTATIN 100,000 UNIT/GM POWD 15 GM TOPICAL SCH ×2 (15:57→23:13)
[2020-05-07 16:51] LABS: Glucose,Whole Blood 119 mg/dL (75-99)
[2020-05-07 20:35] LABS: Glucose,Whole Blood 150 mg/dL (75-99)
[2020-05-07] MEDS: LORATADINE 10 MG TAB PO SCH (22:19)
[2020-05-07] MEDS: DILTIAZEM CD 240 MG CAP.ER.24H PO SCH (22:19)
[2020-05-07] MEDS: INSULIN DETEMIR (LEVEMIR) 100 UNIT/ML SYR SQ SCH (22:20)
[2020-05-07] MEDS: SENNOSIDES-DOCUSATE SODIUM 1 EACH TAB PO SCH (22:20)
[2020-05-08 02:32] LABS: Glucose,Whole Blood 169 mg/dL (75-99)
[2020-05-08] MEDS: AMPICILLIN-SULBACTAM 3 GM in SODIUM CHLORIDE 0.9% 100 ML IVPB SCH ×2 (05:09→12:31)
[2020-05-08 07:21] LABS: Glucose,Whole Blood 114 mg/dL (75-99)
[2020-05-08] MEDS: SYMBICORT 160-4.5 MCG INHALER INHALATION SCH (07:22)
[2020-05-08] MEDS: metFORMIN 500 MG TAB PO SCH (07:56)
[2020-05-08] MEDS: ASPIRIN 81 MG PO SCH (07:56)
[2020-05-08] MEDS: hydrALAZINE HCL 50 MG TAB PO SCH (07:57)
[2020-05-08] MEDS: LOSARTAN 50 MG TAB PO SCH (07:57)
[2020-05-08] MEDS: DILTIAZEM CD 240 MG CAP.ER.24H PO SCH (07:57)
[2020-05-08] MEDS: TICAGRELOR 90 MG TAB PO SCH (07:57)
[2020-05-08] MEDS: NYSTATIN 100,000 UNIT/GM POWD 15 GM TOPICAL SCH (07:58)
[2020-05-08] MEDS ORDERED: HYDROPHILIC CREAM 180 GM TUBE TOPICAL SCH (09:30)
[2020-05-08 11:44] LABS: Glucose,Whole Blood 109 mg/dL (75-99)
--- NOTE | 2020-05-08 11:51 | P.DS ---
Providers Date of admission: 05/04/20 23:25 Expected date of discharge: 05/08/20 Attending physician: Rosas Ceorn Consults: 05/04/20 23:19 Consult Physician Routine Consulting Provider: Maik Sanchez Consult Reason/Comments: Medical management Do you want consulting provider notified?: Yes 05/05/20 12:50 Consult Physician Routine Consulting Provider: Diego Thomas Consult Reason/Comments: Antibiotic management Do you want consulting provider notified?: Yes Primary care physician: [facility] Hospital Course: Discharge diagnosis 1. Intractable abdominal pain with surgical site wound infection and cellulitis 2. Skin irritation around stoma Hospital course This is a 59-year-old female status post colectomy for chronic constipation with colostomy creation. She reports increased redness including drainage from her midline incision. She presented to the emergency room yesterday after developing acute sharp onset midline abdominal pain. Patient had computed tomography scan of the abdomen and pelvis showing a left colostomy with residual mild to moderate inflammatory changes about the surgical site. Patient started on IV antibiotics for cellulitis and infection at surgical site. Patient seen by infectious disease. They're recommending Augmentin at discharge. Patient has had improvement of the redness at her incision site. Her ostomy is func tioning. Patient does have skin irritation around the stoma. She was seen by ostomy nurse. Ostomy nurse has recommended Triad cream. Patient has had improvement in the burning sensation from her skin irritation around the stoma. She'll continue with the Triad cream after discharge. Patient is tolerating diet. She is afebrile. She is stable for discharge. Physician Nursing Unit Clerk note has been reviewed by physician. Signing provider agrees with the documented findings, assessment, and plan of care. Patient Condition at Discharge: Stable Plan - Discharge Summary New Discharge Prescriptions: New Amoxicillin/Potassium Clav [Augmentin 875-125 Tablet] 1 tab PO BID 10 Days #20 tab Hydrophilic Cream [Triad Cream] 1 applic TOPICAL DAILY #1 tube Continue Loratadine [Claritin] 10 mg PO HS rOPINIRole HCL [Requip Xl] 4 mg PO HS Budesonide-Formot 160-4.5 Mcg [Symbicort 160-4.5 Mcg Inhaler] 2 puff INHALATION RT-BID Albuterol Sulfate [Proair Hfa] 1 - 2 puff INHALATION RT-Q6H PRN PRN Reason: Shortness Of Breath Ticagrelor [Brilinta] 90 mg PO BID #60 tab EPINEPHrine (Auto Inject) [Epipen] 0.3 mg IM ONCE PRN PRN Reason: Anaphylaxis Dulaglutide [Trulicity] 1.5 mg SQ MO metFORMIN HCL [Glucophage] 500 mg PO BID Atorvastatin [Lipitor] 10 mg PO MOFR Sennosides/Docusate Sodium [Senna Plus 8.6-50 mg Tablet] 1 tab PO HS Insulin Glargine,Hum.rec.anlog [Lantus Solostar] 40 unit SQ HS Miconazole Nitrate [Lotrimin AF Powder] 1 applic TOPICAL DAILY PRN PRN Reason: Rash Losartan [Cozaar] 50 mg PO BID Diltiazem Cd [Cardizem CD] 240 mg PO HS 30 Days #30 cap.er.24h polyethylene glycoL 3350 [Miralax] 17 gm PO DAILY 30 Days #30 powd.pack Acetaminophen Tab [Tylenol] 650 mg PO Q6HR PRN tab PRN Reason: Fever And/ Or Pain hydrALAZINE HCL [Apresoline] 50 mg PO BID 30 Days #60 tab Aspirin 81 mg PO DAILY 30 Days #30 chew Discharge Medication List Loratadine [Claritin] 10 mg PO HS 06/09/15 [History] rOPINIRole HCL [Requip Xl] 4 mg PO HS 06/09/15 [History] Budesonide-Formot 160-4.5 Mcg [Symbicort 160-4.5 Mcg Inhaler] 2 puff INHALATION RT-BID 03/17/16 [History] Albuterol Sulfate [Proair Hfa] 1 - 2 puff INHALATION RT-Q6H PRN 08/10/18 [History] Ticagrelor [Brilinta] 90 mg PO BID #60 tab 08/12/18 [Rx] Atorvastatin [Lipitor] 10 mg PO MOFR 04/19/20 [History] Dulaglutide [Trulicity] 1.5 mg SQ MO 04/19/20 [History] EPINEPHrine (Auto Inject) [Epipen] 0.3 mg IM ONCE PRN 04/19/20 [History] Insulin Glargine,Hum.rec.anlog [Lantus Solostar] 40 unit SQ HS 04/19/20 [History] Losartan [Cozaar] 50 mg PO BID 04/19/20 [History] Miconazole Nitrate [Lotrimin AF Powder] 1 applic TOPICAL DAILY PRN 04/19/20 [History] Sennosides/Docusate Sodium [Senna Plus 8.6-50 mg Tablet] 1 tab PO HS 04/19/20 [History] metFORMIN HCL [Glucophage] 500 mg PO BID 04/19/20 [History] Acetaminophen Tab [Tylenol] 650 mg PO Q6HR PRN tab 04/25/20 [Rx] Diltiazem Cd [Cardizem CD] 240 mg PO HS 30 Days #30 cap.er.24h 04/25/20 [Rx] polyethylene glycoL 3350 [Miralax] 17 gm PO DAILY 30 Days #30 powd.pack 04/25/20 [Rx] Aspirin 81 mg PO DAILY 30 Days #30 chew 05/02/20 [Rx] hydrALAZINE HCL [Apresoline] 50 mg PO BID 30 Days #60 tab 05/02/20 [Rx] Amoxicillin/Potassium Clav [Augmentin 875-125 Tablet] 1 tab PO BID 10 Days #20 tab 05/07/20 [Rx] Hydrophilic Cream [Triad Cream] 1 applic TOPICAL DAILY #1 tube 05/08/20 [Rx] Follow up Appointment(s)/Referral(s): Rosas Ceron MD [Medical Doctor] - [facility] [NON-STAFF] - 05/10/20 (Contact home care when low on ostomy supplies to ensure that you do not run out. After Home care is complete please contact your [facility] provider regarding your ostomy supplies. ) [facility] [place] [Primary Care Provider] - 05/08/20 1:00 pm Activity/Diet/Wound Care/Special Instructions: med rec complete Colosotmy Care Instructions for Home: Last pouching system changed: 05.07.2020 Home supplies for osotmy care: Coloplast #95931 convex one piece cut to fit (3) No Sting prep around the stoma (10) Antifungal powder around stoma to irritated skin area or Nystatin powder with every appliance change Follow-up with primary care provider upon discharge Continue current diet Continue to monitor blood sugars before meals and at bedtime and keep a diary for primary care follow-up Continue with antibiotics until finished Follow Up with surgery in the outpatient setting Continue with home care Discharge Disposition: HOME WITH HOME HEALTH SERVICES
[2020-05-08 13:15] VITALS: BP 158/71; PULSE 82; RESP 19; TEMP 97.8
--- NOTE | 2020-05-08 14:21 | PN ---
PROGRESS NOTE DATE OF SERVICE: 05/08/2020 REASON FOR FOLLOWUP: Abdominal cellulitis. INTERVAL HISTORY: The patient is currently afebrile. Patient is feeling better. Breathing comfortably. Denies having any chest pain, shortness of breath, cough. No nausea, no vomiting. No diarrhea. PHYSICAL EXAMINATION: Her blood pressure is 158/71 with pulse of 82, temperature 97.8. She is 96% on 2 L nasal cannula. General description is a middle-aged female up in the bed in no distress. RESPIRATORY SYSTEM: Unlabored breathing, clear to auscultation anteriorly. HEART: S1, S2. Regular rate and rhythm. ABDOMEN: Soft. Midline incision is intact. No significant redness or drainage. LABS: No new labs have been obtained today. DIAGNOSTIC IMPRESSION AND PLAN: Patient with abdominal wall cellulitis. No evidence of any drainable abscess. Improvement on Unasyn to finish therapy with oral Augmentin and a close outpatient followup. MMODL / IJN: [id number] /
--- NOTE | 2020-05-08 14:43 | P.PN ---
Subjective Progress Note Date: 05/08/20 Patient is a pleasant 59-year-old female came in with complains of burning sensation in the surgical site area patient had a recent partial colectomy and with colostomy placement. Patient denied any increased stool output, diarrhea or constipation. Patient has burning sensation around the site of colostomy along with the surgical site area. She believes she may have some redness around the surgical site area although per exam that area doesn't appear to be infected. Patient has multiple other medical problems which are fairly stable at this time . 05/06/2020 Patient was having significant purulent drainage from the wound and wound cultures were obtained and patient was started on Unasyn. 05/07/2020 Patient is seen and evaluated in follow-up with no acute overnight issues. Drainage continues to be noted from the bottom of the surgical site and patient is having some irritation around the ostomy which nystatin powder has been ordered. Patient does have some moisture noted around the site. Stool is noted in the ostomy as well and patient is tolerating diet with no reports of nausea o r vomiting. Patient is maintained on IV Unasyn and will continue at this time. Infectious disease is following. She will likely transition to oral antibiotics upon discharge. Blood sugars Being monitored and fairly controlled with long- acting and will continue at this time. IV fluids discontinued. 05/08/2020 Patient is seen and evaluated this morning with no acute overnight issues. Stoma area has become less painful and ostomy nurse has been working with the patient. Patient is having some adherence issues with some of the ostomy and changes have been made. Patient is maintained on antibiotics and we'll transition to oral antibiotics per surgery recommendations. Patient is tolerat ing diet and blood sugars have been managed and will continue with long-acting. Patient is very tearful today on exam as she has recently just received sad news about her son having stage IV cancer who lives out of state and patient would like to go home today to figure things out. Patient denies any chest pain and is having occasional shortness of breath but states it is due to all the crying she has been doing for the last 2 hours. Lung sounds are clear with no wheezing or rhonchi noted. Patient has been afebrile. Surgical site appears dry and intact with 2 areas of iodoform packing noted. Patient is scheduled to have home care in the outpatient setting that will start this Wednesday. She follows with the [facility] in the outpatient setting. Constitutional: Denied any fatigue denied any fever. Cardio vascular: denied any chest pain, palpitations Gastrointestinal denied any nausea vomiting Pulmonary: Denied any shortness of breath cough Neurologic denied any new focal deficits All inpatient medications were reviewed and appropriate changes in these medications as dictated in the interval history and assessment and plan. Objective - Vital Signs Vital signs: Vital Signs Temp 97.9 F 05/08/20 07:21 Pulse 73 05/08/20 07:21 Resp 21 05/08/20 07:21 BP 144/80 05/08/20 07:21 Pulse Ox 96 05/08/20 07:21 Intake & Output 05/07/20 05/08/20 05/08/20 18:59 06:59 18:59 Intake Total 240 Balance 240 Intake: Oral 240 Other: Voiding Method Toilet Toilet # Voids 4 1 # Bowel Movements 2 - Exam GENERAL: The patient is alert and oriented x3, not in any acute distress. obese. HEENT: Pupils are round and equally reacting to light. EOMI. No scleral icterus. No conjunctival pallor. Normocephalic, atraumatic. No pharyngeal erythema. No thyromegaly. CARDIOVASCULAR: S1 and S2 present. No murmurs, rubs, or gallops. PULMONARY: Chest is clear to auscultation, no wheezing or crackles. ABDOMEN: Soft, nontender, nondistended, normoactive bowel sounds. No palpable organomegaly. Surgical site areas appear clean and dry and intact with 2 areas of iodoform packing noted. Ostomy noted on the left with stool and redness of the stoma surrounding tissue has improved. MUSCULOSKELETAL: No joint swelling or deformity. EXTREMITIES: No cyanosis, clubbing, or pedal edema. NEUROLOGICAL: Gross neurological examination did not reveal any focal deficits. SKIN: No rashes. - Labs CBC & Chem 7: 05/06/20 06:46 05/06/20 06:46 Labs: Abnormal Lab Results - Last 24 Hours (Table) 05/07/20 05/07/20 05/07/20 Range/Units 11:51 16:49 20:33 POC Glucose (mg/dL) 117 H 119 H 150 H (75-99) mg/dL 05/08/20 05/08/20 Range/Units 02:30 07:11 POC Glucose (mg/dL) 169 H 114 H (75-99) mg/dL Assessment and Plan Assessment: -pain in the surgical site area: With possible infection of the surgical site. Patient is maintained on IV Unasyn and will continue at this time and will transition to oral Augmentin upon discharge. Infectious disease is following -Type 2 diabetes mellitus: To continue with long-acting home medication. Continue to monitor blood sugars before meals and at bedtime -COPD without any acute exacerbation -Hyperlipidemia -Hypertension -sleep disorder -Obesity -sleep apnea -Hypothyroidism -Depression Plan: Continue current medications. Continue to follow along with surgery during hospitalization. Patient is maintained on IV antibiotics in the form of Unasyn and we'll transition to oral Augmentin upon discharge. Infectious disease is also following. Instructed the patient increase activity as tolerated. Patient is tolerating diet. Continue with long-acting insulin and Accu-Cheks before meals and at bedtime. Further recommendations to follow. Patient states she is being discharged today.
== END 2020-05-08 14:30 | disposition home health service (06) | DRG 863 ==
LOC: EC 20:39 → 5NMEDONC 23:25
PROVIDERS: ADMIT Surgery; ATTEND Surgery
DX: T81.41XA Infection following a procedure, superficial incisional surgical site, initial encounter (principal); K56.7 Ileus, unspecified; L03.311 Cellulitis of abdominal wall; Z68.42 Body mass index [BMI] 45.0-49.9, adult; E03.9 Hypothyroidism, unspecified; E11.69 Type 2 diabetes mellitus with other specified complication; E66.01 Morbid (severe) obesity due to excess calories; E78.5 Hyperlipidemia, unspecified; F32.9 Major depressive disorder, single episode, unspecified; F41.9 Anxiety disorder, unspecified; G25.81 Restless legs syndrome; G40.909 Epilepsy, unspecified, not intractable, without status epilepticus; G47.30 Sleep apnea, unspecified; H91.90 Unspecified hearing loss, unspecified ear; I10 Essential (primary) hypertension; I27.20 Pulmonary hypertension, unspecified; J44.9 Chronic obstructive pulmonary disease, unspecified; K22.70 Barrett's esophagus without dysplasia; K76.0 Fatty (change of) liver, not elsewhere classified; Z79.02 Long term (current) use of antithrombotics/antiplatelets; Z79.51 Long term (current) use of inhaled steroids; Z79.82 Long term (current) use of aspirin; Z79.84 Long term (current) use of oral hypoglycemic drugs; Z79.899 Other long term (current) drug therapy; Z80.0 Family history of malignant neoplasm of digestive organs; Z82.49 Family history of ischemic heart disease and other diseases of the circulatory system; Z82.5 Family history of asthma and other chronic lower respiratory diseases; Z86.73 Personal history of transient ischemic attack (TIA), and cerebral infarction without residual deficits; Z87.442 Personal history of urinary calculi; Z88.9 Allergy status to unspecified drugs, medicaments and biological substances; Z90.49 Acquired absence of other specified parts of digestive tract; Z90.710 Acquired absence of both cervix and uterus; Z93.3 Colostomy status; Z97.4 Presence of external hearing-aid; Z91.030 Bee allergy status; Z88.5 Allergy status to narcotic agent; Z88.7 Allergy status to serum and vaccine; Z88.8 Allergy status to other drugs, medicaments and biological substances; Z91.048 Other nonmedicinal substance allergy status; Y83.8 Other surgical procedures as the cause of abnormal reaction of the patient, or of later complication, without mention of misadventure at the time of the procedure
CPT/HCPCS: 36415; 74177; 80048; 80053; 81001; 83605; 83690; 85025; 86140; 94640; 94760; 96361; 96374; 96375; 99285

== ENCOUNTER 2020-07-14 09:17 | Emergency (ER) | payer OTHER ==
[2020-07-14 09:26] VITALS: RESP 18; TEMP 98.4
[2020-07-14] MEDS ORDERED: ACETAMINOPHEN TAB 325 MG TAB PO STA (09:30)
[2020-07-14] MEDS ORDERED: ACETAMINOPHEN TAB 325 MG TAB PO PRN (09:30)
[2020-07-14] MEDS ORDERED: ALBUTEROL HFA INHALER INHALATION STA (09:30)
--- NOTE | 2020-07-14 09:33 | ED ---
General Adult HPI - General Chief complaint: Shortness of Breath Stated complaint: SOB Time Seen by Provider: 07/14/20 09:21 Source: patient, EMS, RN notes reviewed Mode of arrival: EMS Limitations: no limitations - History of Present Illness Initial comments: Patient is a pleasant 59-year-old female presenting to the emergency Department with complaints of difficulty in breathing. Onset of symptoms was 3-4 days ago. Patient does have cough occasional yellow sputum. Patient does have history of previous COPD with somewhat similar symptoms. Patient has chills however no fever. Patient has had some sinus congestion and drainage. Patient has been possibly exposed to coronavirus twice in the past couple of weeks. - Related Data Home Medications Medication Instructions Recorded Confirmed Loratadine [Claritin] 10 mg PO HS 06/09/15 07/14/20 Budesonide-Formot 160-4.5 Mcg 2 puff INHALATION RT-BID 03/17/16 07/14/20 [Symbicort 160-4.5 Mcg Inhaler] Albuterol Sulfate [Proair Hfa] 1 - 2 puff INHALATION RT-Q6H PRN 08/10/18 07/14/20 EPINEPHrine (Auto Inject) [Epipen] 0.3 mg IM ONCE PRN 04/19/20 07/14/20 Insulin Glargine,Hum.rec.anlog 40 unit SQ HS 04/19/20 07/14/20 [Lantus Solostar] Losartan [Cozaar] 50 mg PO BID 04/19/20 07/14/20 Sennosides/Docusate Sodium [Senna 1 tab PO BID 04/19/20 07/14/20 Plus 8.6-50 mg Tablet] metFORMIN HCL [Glucophage] 1,000 mg PO BID 04/19/20 07/14/20 Atorvastatin [Lipitor] 20 mg PO HS 07/14/20 07/14/20 Diltiazem HCl [Cartia Xt] 300 mg PO DAILY 07/14/20 07/14/20 INSULIN ASPART (NovoLOG) [NovoLOG 8 unit SQ AC-TID 07/14/20 07/14/20 (formulary)] ZOLMitriptan [ZOLMitriptan Odt] 5 mg PO DAILY PRN 07/14/20 07/14/20 rOPINIRole HCL [Requip] 4 mg PO HS 07/14/20 07/14/20 Previous Rx's Medication Instructions Recorded Ticagrelor [Brilinta] 90 mg PO BID #60 tab 08/12/18 Aspirin 81 mg PO DAILY 30 Days #30 chew 05/02/20 predniSONE [Deltasone] 20 mg PO BID #10 tab 07/14/20 Allergies Allergy/AdvReac Type Severity Reaction Status Date / Time ammonia Allergy Unknown Verified 07/14/20 10:43 barium sulfate Allergy Unknown Verified 07/14/20 10:43 dulaglutide [From Trulicity] Allergy Dyspnea Verified 07/14/20 10:43 exenatide [From Byetta] Allergy Unknown Verified 07/14/20 10:43 feathers Allergy Unknown Verified 07/14/20 10:43 fexofenadine HCl Allergy Unknown Verified 07/14/20 10:43 [From Elena] hydrochlorothiazide Allergy Unknown Verified 07/14/20 10:43 influenza virus vaccine, Allergy Unknown Verified 07/14/20 10:43 specific isosorbide [From Imdur] Allergy Unknown Verified 07/14/20 10:43 meperidine HCl [From Demerol] Allergy Anaphylaxis Verified 07/14/20 10:43 nifedipine [From Procardia] Allergy Unknown Verified 07/14/20 10:43 nitroglycerin Allergy Unknown Verified 07/14/20 10:43 paroxetine [From Paxil] Allergy Unknown Verified 07/14/20 10:43 paroxetine HCl [From Paxil] Allergy Unknown Verified 07/14/20 10:43 sertraline HCl [From Zoloft] Allergy Unknown Verified 07/14/20 10:43 simvastatin [From Zocor] Allergy Unknown Verified 07/14/20 10:43 Ripuikt-Mdy-Uvx Reductase Allergy Unknown Verified 07/14/20 10:43 Inhibitor venom-honey bee Allergy Anaphylaxis Verified 07/14/20 10:43 [bee venom (honey bee)] zolpidem [From Ambien] Allergy Unknown Verified 07/14/20 10:43 zolpidem tartrate Allergy Unknown Verified 07/14/20 10:43 [From Ambien] hay Allergy Dyspnea Uncoded 05/04/20 21:59 lysol Allergy Dyspnea Uncoded 05/04/20 21:59 Review of Systems ROS Statement: Those systems with pertinent positive or pertinent negative responses have been documented in the HPI. ROS Other: All systems not noted in ROS Statement are negative. Constitutional: Reports: chills. Denies: fever Eyes: Denies: eye pain ENT: Reports: congestion. Denies: ear pain Respiratory: Reports: cough, dyspnea Cardiovascular: Denies: chest pain Endocrine: Reports: fatigue Gastrointestinal: Denies: abdominal pain Genitourinary: Denies: dysuria Musculoskeletal: Denies: back pain Skin: Denies: rash Neurological: Denies: confusion Past Medical History Past Medical History: Asthma, COPD, CVA/TIA, Diabetes Mellitus, GERD/Reflux, Hearing Disorder / Deafness, Hyperlipidemia, Hypertension, Seizure Disorder, Sle ep Apnea/CPAP/BIPAP, Thyroid Disorder Additional Past Medical History / Comment(s): additional hx: right bundle branch block,barretts esophagus, migraines, deanna hearing aids, lung nodules, fatty liver, pulmonary hypertension, heart murmur,obesity, IBS, RLS, arthritis, ADHD, DJD, anemia, lactose intolerance; last seizure 21 years ago, kidney stones x2 History of Any Multi-Drug Resistant Organisms: None Reported Past Surgical History: Bowel Resection, Cholecystectomy, Hysterectomy Additional Past Surgical History / Comment(s): breast biopsy,esophageal surgery - 2002 Past Anesthesia/Blood Transfusion Reactions: No Reported Reaction Additional Past Anesthesia/Blood Transfusion Reaction / Comment(s): gets nauseous at times. Past Psychological History: Anxiety, Depression Smoking Status: Never smoker Past Alcohol Use History: None Reported Past Drug Use History: None Reported - Past Family History Mother History Unknown: Yes Family Medical History: Congestive Heart Failure (CHF), Myocardial Infarction ([place]) Additional Family Medical History / Comment(s): 77 Father History Unknown: Yes Family Medical History: COPD, Myocardial Infarction ([place]) Additional Family Medical History / Comment(s): at 56 Sister(s) History Unknown: Yes Family Medical History: Myocardial Infarction ([place]) Additional Family Medical History / Comment(s): at 56 Brother(s) Family Medical History: Cancer Additional Family Medical History / Comment(s): colon cancer General Exam Limitations: no limitations General appearance: alert, in no apparent distress Head exam: Present: normocephalic Eye exam: Present: normal appearance Neck exam: Present: normal inspection Respiratory exam: Present: decreased breath sounds Cardiovascular Exam: Present: regular rate, normal rhythm GI/Abdominal exam: Present: soft. Absent: tenderness Extremities exam: Present: normal inspection. Absent: pedal edema, calf tenderness Back exam: Present: normal inspection Neurological exam: Present: alert Psychiatric exam: Present: normal affect, normal mood Skin exam: Present: normal color Course Vital Signs 07/14/20 09:20 Temperature 98.4 F Pulse Rate 78 Respiratory 18 Rate Blood Pressure 137/69 O2 Sat by Pulse 97 Oximetry EKG Findings - EKG Comments: EKG Findings:: Normal sinus rhythm with rate of 74. RI 192. QRS 122. QT 414. QTC 459. Normal axis. Right bundle branch block. Nonspecific T waves. Medical Decision Making - Medical Decision Making Patient reevaluated and resting comfortably in bed. Lung sounds are clear to auscultation. Patient updated on results. Patient comfortable with discharge with steroid prescription. - Lab Data Result diagrams: 07/14/20 10:03 07/14/20 10:03 Lab Results 07/14/20 07/14/20 07/14/20 Range/Units 10:03 10:03 10:03 WBC 9.1 (3.8-10.6) k/uL RBC 4.48 (3.80-5.40) m/uL Hgb 11.4 (11.4-16.0) gm/dL Hct 33.2 L (34.0-46.0) % MCV 74.2 L (80.0-100.0) fL MCH 25.4 (25.0-35.0) pg MCHC 34.3 (31.0-37.0) g/dL RDW 14.4 (11.5-15.5) % Plt Count 271 (150-450) k/uL MPV 6.7 Neutrophils % 71 % Lymphocytes % 20 % Monocytes % 5 % Eosinophils % 3 % Basophils % 1 % Neutrophils # 6.4 (1.3-7.7) k/uL Lymphocytes # 1.9 (1.0-4.8) k/uL Monocytes # 0.4 (0-1.0) k/uL Eosinophils # 0.3 (0-0.7) k/uL Basophils # 0.0 (0-0.2) k/uL Microcytosis Slight PT 9.6 (9.0-12.0) sec INR 0.9 (<1.2) APTT 22.2 (22.0-30.0) sec D-Dimer 0.37 (<0.60) mg/L FEU Sodium 138 (137-145) mmol/L Potassium 4.0 (3.5-5.1) mmol/L Chloride 103 (98-107) mmol/L Carbon Dioxide 23 (22-30) mmol/L Anion Gap 12 mmol/L BUN 15 (7-17) mg/dL Creatinine 0.68 (0.52-1.04) mg/dL Est GFR (CKD-EPI)AfAm >90 (>60 ml/min/1.73 sqM) Est GFR (CKD-EPI)NonAf >90 (>60 ml/min/1.73 sqM) Glucose 148 H (74-99) mg/dL Plasma Lactic Acid Mitchell (0.7-2.0) mmol/L Calcium 9.4 (8.4-10.2) mg/dL Magnesium 1.7 (1.6-2.3) mg/dL Total Bilirubin 0.3 (0.2-1.3) mg/dL AST 19 (14-36) U/L ALT 14 (4-34) U/L Alkaline Phosphatase 97 (38-126) U/L Lactate Dehydrogenase 371 (313-618) U/L C-Reactive Protein 17.3 H (<10.0) mg/L Total Protein 6.8 (6.3-8.2) g/dL Albumin 4.0 (3.5-5.0) g/dL Coronavirus (PCR) (Not Detectd) 07/14/20 07/14/20 Range/Units 10:03 10:32 WBC (3.8-10.6) k/uL RBC (3.80-5.40) m/uL Hgb (11.4-16.0) gm/dL Hct (34.0-46.0) % MCV (80.0-100.0) fL MCH (25.0-35.0) pg MCHC (31.0-37.0) g/dL RDW (11.5-15.5) % Plt Count (150-450) k/uL MPV Neutrophils % % Lymphocytes % % Monocytes % % Eosinophils % % Basophils % % Neutrophils # (1.3-7.7) k/uL Lymphocytes # (1.0-4.8) k/uL Monocytes # (0-1.0) k/uL Eosinophils # (0-0.7) k/uL Basophils # (0-0.2) k/uL Microcytosis PT (9.0-12.0) sec INR (<1.2) APTT (22.0-30.0) sec D-Dimer (<0.60) mg/L FEU Sodium (137-145) mmol/L Potassium (3.5-5.1) mmol/L Chloride (98-107) mmol/L Carbon Dioxide (22-30) mmol/L Anion Gap mmol/L BUN (7-17) mg/dL Creatinine (0.52-1.04) mg/dL Est GFR (CKD-EPI)AfAm (>60 ml/min/1.73 sqM) Est GFR (CKD-EPI)NonAf (>60 ml/min/1.73 sqM) Glucose (74-99) mg/dL Plasma Lactic Acid Mitchell 2.3 H* (0.7-2.0) mmol/L Calcium (8.4-10.2) mg/dL Magnesium (1.6-2.3) mg/dL Total Bilirubin (0.2-1.3) mg/dL AST (14-36) U/L ALT (4-34) U/L Alkaline Phosphatase (38-126) U/L Lactate Dehydrogenase (313-618) U/L C-Reactive Protein (<10.0) mg/L Total Protein (6.3-8.2) g/dL Albumin (3.5-5.0) g/dL Coronavirus (PCR) Not Detected (Not Detectd) - Radiology Data Radiology results: image reviewed (Chest x-ray shows chronic changes without acute process) Disposition Clinical Impression: Acute exacerbation of chronic obstructive pulmonary disease Disposition: HOME SELF-CARE Condition: Stable Instructions (If sedation given, give patient instructions): COPD (Chronic Obstructive Pulmonary Disease) (ED) Additional Instructions: Please do follow-up with your primary care physician in the next couple days for recheck. Return for difficulty in breathing, fevers, worsening or changing symptoms or other concerns. Prescriptions for steroids have been sent to your pharmacy, [facility] on [address] Prescriptions: predniSONE [Deltasone] 20 mg PO BID #10 tab Is patient prescribed a controlled substance at d/c from ED?: No Referrals: Jessica Ballesteros PT [REFERRING] - 1-2 days Time of Disposition: 11:24
[2020-07-14 10:27] LABS: ALT 14 U/L (4-34); AST 19 U/L (14-36); African American GFR (CKD) >90 (>60 ml/min/1.73 sqM); Alkaline Phosphatase 97 U/L (38-126); Anion Gap 12 mmol/L; Blood Urea Nitrogen 15 mg/dL (7-17); C Reactive Protein 17.3 mg/L (<10.0); Calcium 9.4 mg/dL (8.4-10.2); Carbon Dioxide 23 mmol/L (22-30); Chloride 103 mmol/L (98-107); Glucose 148 mg/dL (74-99); LDH 371 U/L (313-618); Magnesium 1.7 mg/dL (1.6-2.3); Non-African American GFR(CKD) >90 (>60 ml/min/1.73 sqM); Sodium 138 mmol/L (137-145); Total Bilirubin 0.3 mg/dL (0.2-1.3); Total Protein 6.8 g/dL (6.3-8.2)
[2020-07-14 10:30] LABS: Basophils % (A) 1 %; Eosinophils # (A) 0.3 k/uL (0-0.7); Eosinophils % (A) 3 %; HCT 33.2 % (34.0-46.0); HGB 11.4 gm/dL (11.4-16.0); Lymphocytes # (A) 1.9 k/uL (1.0-4.8); Lymphocytes % (A) 20 %; MCH 25.4 pg (25.0-35.0); MCHC 34.3 g/dL (31.0-37.0); MCV 74.2 fL (80.0-100.0); Mean Platelet Volume 6.7; Microcytosis Slight; Monocytes # (A) 0.4 k/uL (0-1.0); Monocytes % (A) 5 %; Neutrophils # (A) 6.4 k/uL (1.3-7.7); Neutrophils % (A) 71 %; Platelet Count 271 k/uL (150-450); RBC 4.48 m/uL (3.80-5.40); RDW 14.4 % (11.5-15.5); WBC 9.1 k/uL (3.8-10.6)
[2020-07-14 10:34] LABS: D-Dimer 0.37 mg/L FEU (<0.60); INR 0.9 (<1.2); Prothrombin Time 9.6 sec (9.0-12.0)
--- NOTE | 2020-07-14 10:37 | XR ---
EXAMINATION TYPE: XR chest 1V portable DATE OF EXAM: 07/14/2020 HISTORY: Shortness of breath. COMPARISON: 04/22/2020 TECHNIQUE: Single view of the chest is submitted. FINDINGS: Demonstrated are scattered senescent parenchymal change. There is no evidence for focal infiltrate. The heart is stable. Hilar and mediastinal structures are within normal limits. Degenerative changes are seen of the dorsal spine. IMPRESSION: 1. Chronic changes without evidence for acute pulmonary disease.
[2020-07-14 10:41] LABS: Partial Thromboplastin Time 22.2 sec (22.0-30.0)
[2020-07-14] MEDS ORDERED: methylPREDNISolone SOD SUCCI 125 MG/2 ML VIAL IV STA (11:22)
[2020-07-14 11:41] VITALS: BP 142/73; PULSE 67
[2020-07-14 17:06] LABS: Ferritin 16.2 ng/mL (10.0-291.0)
== END 2020-07-14 11:40 | disposition home or self-care (01) ==
LOC: EC 09:17
DX: J44.1 Chronic obstructive pulmonary disease with (acute) exacerbation (principal); K21.9 Gastro-esophageal reflux disease without esophagitis; I10 Essential (primary) hypertension; E11.9 Type 2 diabetes mellitus without complications; E66.9 Obesity, unspecified; E78.5 Hyperlipidemia, unspecified; Z79.52 Long term (current) use of systemic steroids; Z79.82 Long term (current) use of aspirin; Z79.899 Other long term (current) drug therapy; Z86.73 Personal history of transient ischemic attack (TIA), and cerebral infarction without residual deficits; Z20.822 Contact with and (suspected) exposure to COVID-19
CPT/HCPCS: 36415; 94640; 93005; 85379; 80053; 82728; 83605; 83615; 83735; 85025; 85610; 85730; 86140; 87040; 84145; 87635; 71045; 99285; 96374; J2930

== ENCOUNTER 2020-08-03 15:57 | Emergency (ER) | payer OTHER ==
[2020-08-03 16:19] VITALS: BP 143/86; PULSE 83; RESP 18; TEMP 97.6
--- NOTE | 2020-08-03 17:02 | ED ---
General Adult HPI - General Chief complaint: Skin/Abscess/Foreign Body Stated complaint: Rash Time Seen by Provider: 08/03/20 16:25 Source: patient, RN notes reviewed Mode of arrival: ambulatory Limitations: no limitations - History of Present Illness Initial comments: Patient is a pleasant 59-year-old female presenting to the emergency department with concern for rash. Onset of symptoms was yesterday. Patient states there is mild discomfort. Patient states this is the lower abdomen. Patient states area is a little bit harder than normal and a little bit uncomfortable. Patient does have rash. No history of similar symptoms previously. No fevers. - Related Data Home Medications Medication Instructions Recorded Confirmed Loratadine [Claritin] 10 mg PO HS 06/09/15 07/14/20 Budesonide-Formot 160-4.5 Mcg 2 puff INHALATION RT-BID 03/17/16 07/14/20 [Symbicort 160-4.5 Mcg Inhaler] Albuterol Sulfate [Proair Hfa] 1 - 2 puff INHALATION RT-Q6H PRN 08/10/18 07/14/20 EPINEPHrine (Auto Inject) [Epipen] 0.3 mg IM ONCE PRN 04/19/20 07/14/20 Insulin Glargine,Hum.rec.anlog 40 unit SQ HS 04/19/20 07/14/20 [Lantus Solostar] Losartan [Cozaar] 50 mg PO BID 04/19/20 07/14/20 Sennosides/Docusate Sodium [Senna 1 tab PO BID 04/19/20 07/14/20 Plus 8.6-50 mg Tablet] metFORMIN HCL [Glucophage] 1,000 mg PO BID 04/19/20 07/14/20 Atorvastatin [Lipitor] 20 mg PO HS 07/14/20 07/14/20 Diltiazem HCl [Cartia Xt] 300 mg PO DAILY 07/14/20 07/14/20 INSULIN ASPART (NovoLOG) [NovoLOG 8 unit SQ AC-TID 07/14/20 07/14/20 (formulary)] ZOLMitriptan [ZOLMitriptan Odt] 5 mg PO DAILY PRN 07/14/20 07/14/20 rOPINIRole HCL [Requip] 4 mg PO HS 07/14/20 07/14/20 Previous Rx's Medication Instructions Recorded Ticagrelor [Brilinta] 90 mg PO BID #60 tab 08/12/18 Aspirin 81 mg PO DAILY 30 Days #30 chew 05/02/20 predniSONE [Deltasone] 20 mg PO BID #10 tab 07/14/20 Cephalexin [Keflex] 500 mg PO QID #40 cap 08/03/20 Mupirocin 2% Oint [Bactroban 2% 1 applic TOPICAL TID #80 gm 08/03/20 Oint] Allergies Allergy/AdvReac Type Severity Reaction Status Date / Time ammonia Allergy Unknown Verified 08/03/20 16:19 barium sulfate Allergy Unknown Verified 08/03/20 16:19 dulaglutide [From Trulicity] Allergy Dyspnea Verified 08/03/20 16:19 exenatide [From Byetta] Allergy Unknown Verified 08/03/20 16:19 feathers Allergy Unknown Verified 08/03/20 16:19 fexofenadine HCl Allergy Unknown Verified 08/03/20 16:19 [From Elena] hydrochlorothiazide Allergy Unknown Verified 08/03/20 16:19 influenza virus vaccine, Allergy Unknown Verified 08/03/20 16:19 specific isosorbide [From Imdur] Allergy Unknown Verified 08/03/20 16:19 meperidine HCl [From Demerol] Allergy Anaphylaxis Verified 08/03/20 16:19 nifedipine [From Procardia] Allergy Unknown Verified 08/03/20 16:19 nitroglycerin Allergy Unknown Verified 08/03/20 16:19 paroxetine [From Paxil] Allergy Unknown Verified 08/03/20 16:19 paroxetine HCl [From Paxil] Allergy Unknown Verified 08/03/20 16:19 sertraline HCl [From Zoloft] Allergy Unknown Verified 08/03/20 16:19 simvastatin [From Zocor] Allergy Unknown Verified 08/03/20 16:19 Appasps-Bom-Agq Reductase Allergy Unknown Verified 08/03/20 16:19 Inhibitor venom-honey bee Allergy Anaphylaxis Verified 08/03/20 16:19 [bee venom (honey bee)] zolpidem [From Ambien] Allergy Unknown Verified 08/03/20 16:19 zolpidem tartrate Allergy Unknown Verified 08/03/20 16:19 [From Ambien] hay Allergy Dyspnea Uncoded 05/04/20 21:59 lysol Allergy Dyspnea Uncoded 05/04/20 21:59 Review of Systems ROS Statement: Those systems with pertinent positive or pertinent negative responses have been documented in the HPI. ROS Other: All systems not noted in ROS Statement are negative. Constitutional: Denies: fever Eyes: Denies: eye pain ENT: Denies: ear pain Respiratory: Denies: cough Cardiovascular: Denies: chest pain Endocrine: Denies: fatigue Genitourinary: Denies: dysuria Musculoskeletal: Denies: back pain Skin: Reports: as per HPI, rash Neurological: Denies: weakness Past Medical History Past Medical History: Asthma, COPD, CVA/TIA, Diabetes Mellitus, GERD/Reflux, Hearing Disorder / Deafness, Hyperlipidemia, Hypertension, Seizure Disorder, Sleep Apnea/CPAP/BIPAP, Thyroid Disorder Additional Past Medical History / Comment(s): additional hx: right bundle branch block,barretts esophagus, migraines, deanna hearing aids, lung nodules, fatty liver, pulmonary hypertension, heart murmur,obesity, IBS, RLS, arthritis, ADHD, DJD, anemia, lactose intolerance; last seizure 21 years ago, kidney stones x2 History of Any Multi-Drug Resistant Organisms: None Reported Past Surgical History: Bowel Resection, Cholecystectomy, Hysterectomy Additional Past Surgical History / Comment(s): breast biopsy,esophageal surgery - 2002, Colostomy Apr 2020 Past Anesthesia/Blood Transfusion Reactions: No Reported Reaction Additional Past Anesthesia/Blood Transfusion Reaction / Comment(s): gets nauseous at times. Past Psychological History: Anxiety, Depression Smoking Status: Never smoker Past Alcohol Use History: None Reported Past Drug Use History: None Reported - Past Family History Mother History Unknown: Yes Family Medical History: Congestive Heart Failure (CHF), Myocardial Infarction ([place]) Additional Family Medical History / Comment(s): 77 Father History Unknown: Yes Family Medical History: COPD, Myocardial Infarction ([place]) Additional Family Medical History / Comment(s): at 56 Sister(s) History Unknown: Yes Family Medical History: Myocardial Infarction ([place]) Additional Family Medical History / Comment(s): at 56 Brother(s) Family Medical History: Cancer Additional Family Medical History / Comment(s): colon cancer General Exam Limitations: no limitations General appearance: alert, in no apparent distress, obese Head exam: Present: normocephalic Eye exam: Present: normal appearance Neck exam: Present: normal inspection Respiratory exam: Present: normal lung sounds bilaterally Cardiovascular Exam: Present: regular rate, normal rhythm GI/Abdominal exam: Present: soft, normal bowel sounds. Absent: distended, tenderness, guarding, rebound, rigid Extremities exam: Present: normal inspection Neurological exam: Present: alert Psychiatric exam: Present: normal affect, normal mood Skin exam: Present: erythema (Lower abdominal pannus with mild erythema and mild induration, approximately 5 x 6 cm concerns with early cellulitis.) Course Vital Signs 08/03/20 16:15 Temperature 97.6 F Pulse Rate 83 Respiratory 18 Rate Blood Pressure 143/86 O2 Sat by Pulse 98 Oximetry Medical Decision Making - Medical Decision Making Patient updated on need for close follow-up and reevaluation and to return if fever, increased rash, increased pain or worsening symptoms. Disposition Clinical Impression: Cellulitis Disposition: HOME SELF-CARE Condition: Stable Instructions (If sedation given, give patient instructions): Cellulitis (ED) Additional Instructions: Prescriptions have been sent here pharmacy. Please do follow-up with primary care physician Wednesday. Return for fevers, increased rash, pain, worsening symptoms or any other concerns. Prescriptions: Mupirocin 2% Oint [Bactroban 2% Oint] 1 applic TOPICAL TID #80 gm Cephalexin [Keflex] 500 mg PO QID #40 cap Is patient prescribed a controlled substance at d/c from ED?: No Referrals: [facility],Clinic [Primary Care Provider] - 1-2 days Time of Disposition: 17:00
== END 2020-08-03 17:12 | disposition home or self-care (01) ==
LOC: EC 15:57
DX: L03.311 Cellulitis of abdominal wall (principal); E11.9 Type 2 diabetes mellitus without complications; E66.9 Obesity, unspecified; E78.5 Hyperlipidemia, unspecified; I10 Essential (primary) hypertension; J44.9 Chronic obstructive pulmonary disease, unspecified; K21.9 Gastro-esophageal reflux disease without esophagitis; G47.33 Obstructive sleep apnea (adult) (pediatric); F41.9 Anxiety disorder, unspecified; F32.9 Major depressive disorder, single episode, unspecified; Z79.82 Long term (current) use of aspirin; Z86.73 Personal history of transient ischemic attack (TIA), and cerebral infarction without residual deficits; Z79.4 Long term (current) use of insulin
CPT/HCPCS: 99282

== ENCOUNTER 2020-08-25 09:44 | Emergency (ER) | payer OTHER ==
[2020-08-25 09:50] VITALS: TEMP 97.6
--- NOTE | 2020-08-25 10:06 | ED ---
General Adult HPI - General Chief complaint: Neuro Symptoms/Deficit Stated complaint: facial numbness Time Seen by Provider: 08/25/20 09:45 Source: patient, EMS, RN notes reviewed, old records reviewed Mode of arrival: ambulatory - History of Present Illness Initial comments: This is a 59-year-old female presents emergency Department complaining of a headache for 5 days. Patient states the headache is typical of her migraine headaches. Patient states this in the front of her head but is bilateral. Patient states she is somewhat sensitive to light and she also complains of diarrhea over the last 3 days. Patient states she has some weird sensation on the right side of her face it's not a new numbness but it makes her feel like she has to pull on her eye lid to make appointment however when she looks into the rear she blinks just fine and there is no drooping and no change in appearance. Patient states she can feel light touch and pain on the side of her face. Patient denies any other symptoms at this time. Patient denies any nausea or vomiting. Patient denies any fever chills or cough. Patient states she has not gotten the COVID vaccine. Patient denies any shortness of breath chest pain or palpitations. - Related Data Home Medications Medication Instructions Recorded Confirmed Loratadine [Claritin] 10 mg PO HS 06/09/15 08/25/20 Budesonide-Formot 160-4.5 Mcg 2 puff INHALATION RT-BID 03/17/16 08/25/20 [Symbicort 160-4.5 Mcg Inhaler] Albuterol Sulfate [Proair Hfa] 1 - 2 puff INHALATION RT-Q6H PRN 08/10/18 08/25/20 EPINEPHrine (Auto Inject) [Epipen] 0.3 mg IM ONCE PRN 04/19/20 08/25/20 Insulin Glargine,Hum.rec.anlog 40 unit SQ HS 04/19/20 08/25/20 [Lantus Solostar] Losartan [Cozaar] 50 mg PO BID 04/19/20 08/25/20 Sennosides/Docusate Sodium [Senna 1 tab PO BID 04/19/20 08/25/20 Plus 8.6-50 mg Tablet] metFORMIN HCL [Glucophage] 1,000 mg PO BID 04/19/20 08/25/20 Diltiazem HCl [Cartia Xt] 300 mg PO DAILY 07/14/20 08/25/20 INSULIN ASPART (NovoLOG) [NovoLOG 8 unit SQ AC-TID 07/14/20 08/25/20 (formulary)] ZOLMitriptan [ZOLMitriptan Odt] 5 mg PO DAILY PRN 07/14/20 08/25/20 rOPINIRole HCL [Requip] 4 mg PO HS 07/14/20 08/25/20 Atorvastatin Calcium [Lipitor] 40 mg PO HS 08/25/20 08/25/20 Cholecalciferol [Vitamin D3 (25 50 mcg PO DAILY 08/25/20 08/25/20 Mcg = 1000 Iu)] Previous Rx's Medication Instructions Recorded Ticagrelor [Brilinta] 90 mg PO BID #60 tab 08/12/18 Aspirin 81 mg PO DAILY 30 Days #30 chew 05/02/20 Allergies Allergy/AdvReac Type Severity Reaction Status Date / Time ammonia Allergy Unknown Verified 08/25/20 11:06 barium sulfate Allergy Unknown Verified 08/25/20 11:06 cephalexin [From Keflex] Allergy Unknown Verified 08/25/20 11:06 dulaglutide [From Trulicity] Allergy Dyspnea Verified 08/25/20 11:06 exenatide [From Byetta] Allergy Unknown Verified 08/25/20 11:06 feathers Allergy Unknown Verified 08/25/20 11:06 fexofenadine HCl Allergy Unknown Verified 08/25/20 11:06 [From Elena] hydrochlorothiazide Allergy Unknown Verified 08/25/20 11:06 influenza virus vaccine, Allergy Unknown Verified 08/25/20 11:06 specific isosorbide [From Imdur] Allergy Unknown Verified 08/25/20 11:06 meperidine HCl [From Demerol] Allergy Anaphylaxis Verified 08/25/20 11:06 nifedipine [From Procardia] Allergy Unknown Verified 08/25/20 11:06 nitroglycerin Allergy Unknown Verified 08/25/20 11:06 paroxetine [From Paxil] Allergy Unknown Verified 08/25/20 11:06 paroxetine HCl [From Paxil] Allergy Unknown Verified 08/25/20 11:06 sertraline HCl [From Zoloft] Allergy Unknown Verified 08/25/20 11:06 simvastatin [From Zocor] Allergy Unknown Verified 08/25/20 11:06 Kbcvllt-Hrx-Bxq Reductase Allergy Unknown Verified 08/25/20 11:06 Inhibitor venom-honey bee Allergy Anaphylaxis Verified 08/25/20 11:06 [bee venom (honey bee)] zolpidem [From Ambien] Allergy Unknown Verified 08/25/20 11:06 zolpidem tartrate Allergy Unknown Verified 08/25/20 11:06 [From Ambien] hay Allergy Dyspnea Uncoded 05/04/20 21:59 lysol Allergy Dyspnea Uncoded 05/04/20 21:59 Review of Systems ROS Statement: Those systems with pertinent positive or pertinent negative responses have been documented in the HPI. ROS Other: All systems not noted in ROS Statement are negative. Past Medical History Past Medical History: Asthma, COPD, CVA/TIA, Diabetes Mellitus, GERD/Reflux, Hearing Disorder / Deafness, Hyperlipidemia, Hypertension, Seizure Disorder, Sleep Apnea/CPAP/BIPAP, Thyroid Disorder Additional Past Medical History / Comment(s): additional hx: right bundle branch block,barretts esophagus, migraines, deanna hearing aids, lung nodules, fatty liver, pulmonary hypertension, heart murmur,obesity, IBS, RLS, arthritis, ADHD, DJD, anemia, lactose intolerance; last seizure 21 years ago, kidney stones x2 History of Any Multi-Drug Resistant Organisms: None Reported Past Surgical History: Bowel Resection, Cholecystectomy, Hysterectomy Additional Past Surgical History / Comment(s): breast biopsy,esophageal surgery - 2002, Colostomy Apr 2020 Past Anesthesia/Blood Transfusion Reactions: No Reported Reaction Additional Past Anesthesia/Blood Transfusion Reaction / Comment(s): gets nauseous at times. Past Psychological History: Anxiety, Depression Smoking Status: Never smoker Past Alcohol Use History: None Reported Past Drug Use History: None Reported - Past Family History Mother History Unknown: Yes Family Medical History: Congestive Heart Failure (CHF), Myocardial Infarction ([place]) Additional Family Medical History / Comment(s): 77 Father History Unknown: Yes Family Medical History: COPD, Myocardial Infarction ([place]) Additional Family Medical History / Comment(s): at 56 Sister(s) History Unknown: Yes Family Medical History: Myocardial Infarction ([place]) Additional Family Medical History / Comment(s): at 56 Brother(s) Family Medical History: Cancer Additional Family Medical History / Comment(s): colon cancer General Exam - General Exam Comments Initial Comments: GENERAL: Patient is well-developed and well-nourished. Patient is nontoxic and well- hydrated and is in mild distress. ENT: Neck is soft and supple. No significant lymphadenopathy is noted. Oropharynx is clear. Moist mucous membranes. Neck has full range of motion without eliciting any pain. EYES: The sclera were anicteric and conjunctiva were pink and moist. Extraocular movements were intact and pupils were equal round and reactive to light. Eyelids were unremarkable. PULMONARY: Unlabored respirations. Good breath sounds bilaterally. No audible rales r honchi or wheezing was noted. CARDIOVASCULAR: There is a regular rate and rhythm without any murmurs gallops or rubs. ABDOMEN: Soft and nontender with normal bowel sounds. SKIN: Skin is clear with no lesions or rashes and otherwise unremarkable. NEUROLOGIC: Patient is alert and oriented x3. Cranial nerves II through XII are grossly intact. Motor and sensory are also intact. Normal speech, volume and content. Symmetrical smile. Cerebellar exam grossly intact. Patient's NIH is 0 MUSCULOSKELETAL: Normal extremities with adequate strength and full range of motion. LYMPHATICS: No significant lymphadenopathy is noted PSYCHIATRIC: Normal psychiatric evaluation. Course Vital Signs 08/25/20 08/25/20 08/25/20 09:45 10:52 12:19 Temperature 97.6 F Pulse Rate 71 61 81 Respiratory 20 18 18 Rate Blood Pressure 139/74 123/68 166/59 O2 Sat by Pulse 97 97 96 Oximetry Medical Decision Making - Medical Decision Making EKG shows normal sinus rhythm at 64 bpm CO interval is 208 QRSs 124 QT interval 446 QTC is 460. Patient's EKG shows no ST segment elevation. Patient has a right bundle branch block. Lumpectomy reevaluate the patient she had no further symptoms of tingling or abnormal sensation on her lower eyelid. Patient states her headache was much improved. Patient is comfortable being discharged home. - Lab Data Result diagrams: 08/25/20 10:29 08/25/20 10:29 Lab Results 08/25/20 08/25/20 08/25/20 Range/Units 10:07 10:29 10:29 WBC 9.5 (3.8-10.6) k/uL RBC 4.64 (3.80-5.40) m/uL Hgb 11.5 (11.4-16.0) gm/dL Hct 34.2 (34.0-46.0) % MCV 73.8 L (80.0-100.0) fL MCH 24.9 L (25.0-35.0) pg MCHC 33.7 (31.0-37.0) g/dL RDW 15.9 H (11.5-15.5) % Plt Count 249 (150-450) k/uL MPV 6.6 Neutrophils % 73 % Lymphocytes % 19 % Monocytes % 4 % Eosinophils % 3 % Basophils % 1 % Neutrophils # 7.0 (1.3-7.7) k/uL Lymphocytes # 1.8 (1.0-4.8) k/uL Monocytes # 0.4 (0-1.0) k/uL Eosinophils # 0.3 (0-0.7) k/uL Basophils # 0.1 (0-0.2) k/uL Microcytosis Slight Sodium (137-145) mmol/L Potassium (3.5-5.1) mmol/L Chloride (98-107) mmol/L Carbon Dioxide (22-30) mmol/L Anion Gap mmol/L BUN (7-17) mg/dL Creatinine (0.52-1.04) mg/dL Est GFR (CKD-EPI)AfAm (>60 ml/min/1.73 sqM) Est GFR (CKD-EPI)NonAf (>60 ml/min/1.73 sqM) Glucose (74-99) mg/dL POC Glucose (mg/dL) 139 H (75-99) mg/dL POC Glu Sweet Dough Mixer ID Marge Méndez Calcium (8.4-10.2) mg/dL Magnesium (1.6-2.3) mg/dL Total Bilirubin (0.2-1.3) mg/dL AST (14-36) U/L ALT (4-34) U/L Alkaline Phosphatase (38-126) U/L Total Protein (6.3-8.2) g/dL Albumin (3.5-5.0) g/dL Coronavirus (PCR) Not Detected (Not Detectd) 08/25/20 Range/Units 10:29 WBC (3.8-10.6) k/uL RBC (3.80-5.40) m/uL Hgb (11.4-16.0) gm/dL Hct (34.0-46.0) % MCV (80.0-100.0) fL MCH (25.0-35.0) pg MCHC (31.0-37.0) g/dL RDW (11.5-15.5) % Plt Count (150-450) k/uL MPV Neutrophils % % Lymphocytes % % Monocytes % % Eosinophils % % Basophils % % Neutrophils # (1.3-7.7) k/uL Lymphocytes # (1.0-4.8) k/uL Monocytes # (0-1.0) k/uL Eosinophils # (0-0.7) k/uL Basophils # (0-0.2) k/uL Microcytosis Sodium 138 (137-145) mmol/L Potassium 4.4 (3.5-5.1) mmol/L Chloride 104 (98-107) mmol/L Carbon Dioxide 25 (22-30) mmol/L Anion Gap 9 mmol/L BUN 15 (7-17) mg/dL Creatinine 0.68 (0.52-1.04) mg/dL Est GFR (CKD-EPI)AfAm >90 (>60 ml/min/1.73 sqM) Est GFR (CKD-EPI)NonAf >90 (>60 ml/min/1.73 sqM) Glucose 141 H (74-99) mg/dL POC Glucose (mg/dL) (75-99) mg/dL POC Glu Sweet Dough Mixer ID Calcium 9.4 (8.4-10.2) mg/dL Magnesium 1.6 (1.6-2.3) mg/dL Total Bilirubin 0.4 (0.2-1.3) mg/dL AST 22 (14-36) U/L ALT 17 (4-34) U/L Alkaline Phosphatase 99 (38-126) U/L Total Protein 6.9 (6.3-8.2) g/dL Albumin 4.1 (3.5-5.0) g/dL Coronavirus (PCR) (Not Detectd) Disposition Clinical Impression: Migraine headache Disposition: HOME SELF-CARE Condition: Good Instructions (If sedation given, give patient instructions): Migraine Headache (ED) Is patient prescribed a controlled substance at d/c from ED?: No Referrals: [facility],Clinic [Primary Care Provider] - 1-2 days Time of Disposition: 12:28
[2020-08-25 10:13] LABS: Glucose,Whole Blood 139 mg/dL (75-99)
[2020-08-25 10:50] LABS: Basophils # (A) 0.1 k/uL (0-0.2); Basophils % (A) 1 %; Eosinophils # (A) 0.3 k/uL (0-0.7); Eosinophils % (A) 3 %; HCT 34.2 % (34.0-46.0); HGB 11.5 gm/dL (11.4-16.0); Lymphocytes # (A) 1.8 k/uL (1.0-4.8); Lymphocytes % (A) 19 %; MCH 24.9 pg (25.0-35.0); MCHC 33.7 g/dL (31.0-37.0); MCV 73.8 fL (80.0-100.0); Mean Platelet Volume 6.6; Microcytosis Slight; Monocytes # (A) 0.4 k/uL (0-1.0); Monocytes % (A) 4 %; Neutrophils % (A) 73 %; Platelet Count 249 k/uL (150-450); RBC 4.64 m/uL (3.80-5.40); RDW 15.9 % (11.5-15.5); WBC 9.5 k/uL (3.8-10.6)
[2020-08-25 10:53] VITALS: RESP 18
[2020-08-25 10:59] LABS: ALT 17 U/L (4-34); AST 22 U/L (14-36); African American GFR (CKD) >90 (>60 ml/min/1.73 sqM); Albumin 4.1 g/dL (3.5-5.0); Alkaline Phosphatase 99 U/L (38-126); Anion Gap 9 mmol/L; Blood Urea Nitrogen 15 mg/dL (7-17); Calcium 9.4 mg/dL (8.4-10.2); Carbon Dioxide 25 mmol/L (22-30); Chloride 104 mmol/L (98-107); Glucose 141 mg/dL (74-99); Magnesium 1.6 mg/dL (1.6-2.3); Non-African American GFR(CKD) >90 (>60 ml/min/1.73 sqM); Potassium 4.4 mmol/L (3.5-5.1); Sodium 138 mmol/L (137-145); Total Bilirubin 0.4 mg/dL (0.2-1.3); Total Protein 6.9 g/dL (6.3-8.2)
--- NOTE | 2020-08-25 12:12 | CT ---
EXAMINATION TYPE: CT brain wo con DATE OF EXAM: 08/25/2020 COMPARISON: 10/20/2015 INDICATION: VILLARREAL and facial numbness DLP: 1044.4 mGycm, Automated exposure control for dose reduction was used. CONTRAST: None CT of the brain is performed utilizing 3 mm thick sections through the posterior fossa and 3 mm thick sections through the remaining calvarium. Study is performed within 24 hours of arrival to the hosp ital. No abnormal hyperdensity is present to suggest an acute intracranial hemorrhage. No mass lesion is evident. No acute infarcts are evident. Ventricles and sulci are appropriate for the patient age. Paranasal sinuses and mastoid air cells within the jyuiu-fu-byre are clear. IMPRESSIONS: 1. No acute intracranial process.
[2020-08-25] MEDS ORDERED: KETOROLAC 15 MG/ML 1 ML VIAL IVP STA (12:27)
[2020-08-25 13:16] VITALS: BP 162/79; PULSE 85
== END 2020-08-25 13:23 | disposition home or self-care (01) ==
LOC: EC 09:44
DX: G43.909 Migraine, unspecified, not intractable, without status migrainosus (principal); R19.7 Diarrhea, unspecified; E78.5 Hyperlipidemia, unspecified; G40.909 Epilepsy, unspecified, not intractable, without status epilepticus; J44.9 Chronic obstructive pulmonary disease, unspecified; K21.9 Gastro-esophageal reflux disease without esophagitis; E11.9 Type 2 diabetes mellitus without complications; I10 Essential (primary) hypertension; G47.30 Sleep apnea, unspecified; F41.9 Anxiety disorder, unspecified; F32.9 Major depressive disorder, single episode, unspecified; E66.9 Obesity, unspecified; K58.0 Irritable bowel syndrome with diarrhea; Z20.822 Contact with and (suspected) exposure to COVID-19; Z87.442 Personal history of urinary calculi; Z86.73 Personal history of transient ischemic attack (TIA), and cerebral infarction without residual deficits; Z87.19 Personal history of other diseases of the digestive system; Z79.4 Long term (current) use of insulin; Z79.899 Other long term (current) drug therapy; Z79.82 Long term (current) use of aspirin; Z79.51 Long term (current) use of inhaled steroids; Z68.43 Body mass index [BMI] 50.0-59.9, adult
CPT/HCPCS: 36415; 93005; 80053; 83735; 85025; 87635; 70450; 99285; 96374; 96375; J1885; J1790

== ENCOUNTER 2020-09-15 13:02 | Emergency (ER) | payer OTHER ==
[2020-09-15 13:19] VITALS: RESP 18; TEMP 98.2
[2020-09-15 14:44] LABS: Basophils % (A) 1 %; Eosinophils # (A) 0.2 k/uL (0-0.7); Eosinophils % (A) 3 %; HCT 36.3 % (34.0-46.0); HGB 12.1 gm/dL (11.4-16.0); Lymphocytes # (A) 1.8 k/uL (1.0-4.8); Lymphocytes % (A) 25 %; MCH 24.3 pg (25.0-35.0); MCHC 33.2 g/dL (31.0-37.0); MCV 73.1 fL (80.0-100.0); Mean Platelet Volume 6.9; Microcytosis Moderate; Monocytes # (A) 0.4 k/uL (0-1.0); Monocytes % (A) 5 %; Neutrophils # (A) 4.8 k/uL (1.3-7.7); Neutrophils % (A) 65 %; Platelet Count 277 k/uL (150-450); RBC 4.96 m/uL (3.80-5.40); RDW 15.8 % (11.5-15.5); WBC 7.4 k/uL (3.8-10.6)
[2020-09-15 14:54] LABS: Albumin 4.4 g/dL (3.5-5.0); Calcium 9.4 mg/dL (8.4-10.2); Total Bilirubin 0.7 mg/dL (0.2-1.3); Total Protein 7.3 g/dL (6.3-8.2)
[2020-09-15 14:55] LABS: Potassium 4.7 mmol/L (3.5-5.1)
--- NOTE | 2020-09-15 14:55 | XR ---
EXAMINATION TYPE: XR KUB DATE OF EXAM: 09/15/2020 COMPARISON: 06/09/2015 HISTORY: Back pain TECHNIQUE: 2 views upright FINDINGS: There is left upper quadrant calcification that measures 5 mm at the L3-4 level that is eliud arently phlebolith based on the abdomen CT scan of 05/04/2020. There is no sign of intestinal obstruct ion or pneumoperitoneum. Fecal pattern is normal. Lung bases are clear of consolidation. IMPRESSION: Nonacute abdomen. Left upper quadrant calcification consistent with a phlebolith.
[2020-09-15 15:08] LABS: Appearance,Urine Cloudy (Clear); Bacteria,Urine Rare /hpf; Bilirubin,Urine Negative (Negative); Blood,Urine Negative (Negative); Color,Urine Yellow; Glucose,Urine (UA) Negative (Negative); Ketones,Urine Negative (Negative); Leukocyte Esterase,Urine Large (Negative); Mucus,Urine Rare /hpf; Nitrite,Urine Negative (Negative); Protein,Urine Negative (Negative); RBC,Urine 3 /hpf (0-5); Squamous Epithelial Cell,Urine 3 /hpf (0-4); Urobilinogen,Urine <2.0 mg/dL (<2.0); WBC,Urine 15 /hpf (0-5)
--- NOTE | 2020-09-15 15:22 | ED ---
Abdominal Pain HPI - General Chief Complaint: Abdominal Pain Stated Complaint: Post Op Ostomy Issue Time Seen by Provider: 09/15/20 13:45 Source: patient Mode of arrival: ambulatory Limitations: no limitations - History of Present Illness Initial Comments: 59-year-old female presents to the emergency department with chief complaint of constipation. Patient reports she underwent case sigmoidoscopy 7 days ago and has not developed solid stool since. Patient has a colostomy bag after undergoing colectomy in April. Patient reports there is only yellow liquid discharge noted. States she is otherwise been eating and drinking per her usual. Mostly soups in liquid food. She otherwise reports some nausea and vomiting several days ago but took antiemetics which helped with the symptoms. She denies any abdominal or back pain. Denies any vaginal urinary symptoms. Denies any chest pain or shortness of breath. - Related Data Home Medications Medication Instructions Recorded Confirmed Loratadine [Claritin] 10 mg PO HS 06/09/15 08/25/20 Budesonide-Formot 160-4.5 Mcg 2 puff INHALATION RT-BID 03/17/16 08/25/20 [Symbicort 160-4.5 Mcg Inhaler] Albuterol Sulfate [Proair Hfa] 1 - 2 puff INHALATION RT-Q6H PRN 08/10/18 08/25/20 EPINEPHrine (Auto Inject) [Epipen] 0.3 mg IM ONCE PRN 04/19/20 08/25/20 Insulin Glargine,Hum.rec.anlog 40 unit SQ HS 04/19/20 08/25/20 [Lantus Solostar] Losartan [Cozaar] 50 mg PO BID 04/19/20 08/25/20 Sennosides/Docusate Sodium [Senna 1 tab PO BID 04/19/20 08/25/20 Plus 8.6-50 mg Tablet] metFORMIN HCL [Glucophage] 1,000 mg PO BID 04/19/20 08/25/20 Diltiazem HCl [Cartia Xt] 300 mg PO DAILY 07/14/20 08/25/20 INSULIN ASPART (NovoLOG) [NovoLOG 8 unit SQ AC-TID 07/14/20 08/25/20 (formulary)] ZOLMitriptan [ZOLMitriptan Odt] 5 mg PO DAILY PRN 07/14/20 08/25/20 rOPINIRole HCL [Requip] 4 mg PO HS 07/14/20 08/25/20 Atorvastatin Calcium [Lipitor] 40 mg PO HS 08/25/20 08/25/20 Cholecalciferol [Vitamin D3 (25 50 mcg PO DAILY 08/25/20 08/25/20 Mcg = 1000 Iu)] Previous Rx's Medication Instructions Recorded Ticagrelor [Brilinta] 90 mg PO BID #60 tab 08/12/18 Aspirin 81 mg PO DAILY 30 Days #30 chew 05/02/20 Allergies Allergy/AdvReac Type Severity Reaction Status Date / Time ammonia Allergy Unknown Verified 08/25/20 11:06 barium sulfate Allergy Unknown Verified 09/15/20 13:20 cephalexin [From Keflex] Allergy Unknown Verified 09/15/20 13:20 dulaglutide [From Trulicity] Allergy Dyspnea Verified 09/15/20 13:20 exenatide [From Byetta] Allergy Unknown Verified 09/15/20 13:20 feathers Allergy Unknown Verified 09/15/20 13:20 fexofenadine HCl Allergy Unknown Verified 09/15/20 13:20 [From Elena] hydrochlorothiazide Allergy Unknown Verified 09/15/20 13:20 influenza virus vaccine, Allergy Unknown Verified 09/15/20 13:20 specific isosorbide [From Imdur] Allergy Unknown Verified 09/15/20 13:20 meperidine HCl [From Demerol] Allergy Anaphylaxis Verified 09/15/20 13:20 nifedipine [From Procardia] Allergy Unknown Verified 09/15/20 13:20 nitroglycerin Allergy Unknown Verified 09/15/20 13:20 paroxetine [From Paxil] Allergy Unknown Verified 09/15/20 13:20 paroxetine HCl [From Paxil] Allergy Unknown Verified 09/15/20 13:20 sertraline HCl [From Zoloft] Allergy Unknown Verified 09/15/20 13:20 simvastatin [From Zocor] Allergy Unknown Verified 09/15/20 13:20 Mukvqoy-Ppe-Wry Reductase Allergy Unknown Verified 09/15/20 13:20 Inhibitor venom-honey bee Allergy Anaphylaxis Verified 09/15/20 13:20 [bee venom (honey bee)] zolpidem [From Ambien] Allergy Unknown Verified 09/15/20 13:20 zolpidem tartrate Allergy Unknown Verified 09/15/20 13:20 [From Ambien] hay Allergy Dyspnea Uncoded 09/15/20 13:20 lysol Allergy Dyspnea Uncoded 09/15/20 13:20 Review of Systems ROS Statement: Those systems with pertinent positive or pertinent negative responses have been documented in the HPI. ROS Other: All systems not noted in ROS Statement are negative. Past Medical History Past Medical History: Asthma, COPD, CVA/TIA, Diabetes Mellitus, GERD/Reflux, Hearing Disorder / Deafness, Hyperlipidemia, Hypertension, Seizure Disorder, Sleep Apnea/CPAP/BIPAP, Thyroid Disorder Additional Past Medical History / Comment(s): additional hx: right bundle branch block,barretts esophagus, migraines, deanna hearing aids, lung nodules, fatty liver, pulmonary hypertension, heart murmur,obesity, IBS, RLS, arthritis, ADHD, DJD, anemia, lactose intolerance; last seizure 21 years ago, kidney stones x2 History of Any Multi-Drug Resistant Organisms: None Reported Past Surgical History: Bowel Resection, Cholecystectomy, Hysterectomy Additional Past Surgical History / Comment(s): breast biopsy,esophageal surgery - 2002, Colostomy Apr 2020 Past Anesthesia/Blood Transfusion Reactions: No Reported Reaction Additional Past Anesthesia/Blood Transfusion Reaction / Comment(s): gets nauseous at times. Past Psychological History: Anxiety, Depression Smoking Status: Never smoker Past Alcohol Use History: None Reported Past Drug Use History: None Reported - Past Family History Mother History Unknown: Yes Family Medical History: Congestive Heart Failure (CHF), Myocardial Infarction ([place]) Additional Family Medical History / Comment(s): 77 Father History Unknown: Yes Family Medical History: COPD, Myocardial Infarction ([place]) Additional Family Medical History / Comment(s): at 56 Sister(s) History Unknown: Yes Family Medical History: Myocardial Infarction ([place]) Additional Family Medical History / Comment(s): at 56 Brother(s) Family Medical History: Cancer Additional Family Medical History / Comment(s): colon cancer General Exam Limitations: no limitations General appearance: alert, in no apparent distress, obese Head exam: Present: atraumatic, normocephalic, normal inspection Eye exam: Present: normal appearance, PERRL, EOMI Pupils: Present: normal accommodation ENT exam: Present: normal exam, normal oropharynx, mucous membranes moist Neck exam: Present: normal inspection, full ROM. Absent: tenderness, lymphadenopathy Respiratory exam: Present: normal lung sounds bilaterally. Absent: respiratory distress, wheezes, rales, rhonchi, stridor Cardiovascular Exam: Present: regular rate, normal rhythm, normal heart sounds. Absent: systolic murmur GI/Abdominal exam: Present: soft (Colostomy bag left lower quadrant that appears to be draining yellow liquid.). Absent: distended, tenderness, guarding, rebound Extremities exam: Present: normal inspection, full ROM, normal capillary refill, other (Palpable DP and PT bilaterally). Absent: tenderness, pedal edema, joint swelling, calf tenderness Back exam: Present: normal inspection, full ROM. Absent: tenderness, CVA tenderness (R), CVA tenderness (L) Neurological exam: Present: alert, oriented X3 Psychiatric exam: Present: normal affect, normal mood Skin exam: Present: warm, dry, intact, normal color Course Vital Signs 09/15/20 13:15 Temperature 98.2 F Pulse Rate 67 Respiratory 18 Rate Blood Pressure 148/72 O2 Sat by Pulse 99 Oximetry Medical Decision Making - Medical Decision Making 59-year-old female presents to the emergency department with chief complaint of constipation. On physical examination, patient appears to be in no discomfort. There is no abdominal tenderness in the colostomy bag is draining only liquid. KUB shows no signs of constipation. cmp reveals elevated BUN and creatinine of 31 and 1.68, respectively. There is results were elevated compared to her most recent lab work. Patient was given 1.5 L of IV fluids. On reevaluation, she reports improving symptoms. Will be discharged and advised her to follow-up with Dr. Sherman who also performed her colectomy. She was advised to increase her fluid intake. Return parameters were thoroughly discussed patient is an attending agreeable. Case discussed with - Lab Data Result diagrams: 09/15/20 14:17 09/15/20 14:17 Lab Results 09/15/20 09/15/20 09/15/20 Range/Units 14:17 14:17 14:17 WBC 7.4 (3.8-10.6) k/uL RBC 4.96 (3.80-5.40) m/uL Hgb 12.1 (11.4-16.0) gm/dL Hct 36.3 (34.0-46.0) % MCV 73.1 L (80.0-100.0) fL MCH 24.3 L (25.0-35.0) pg MCHC 33.2 (31.0-37.0) g/dL RDW 15.8 H (11.5-15.5) % Plt Count 277 (150-450) k/uL MPV 6.9 Neutrophils % 65 % Lymphocytes % 25 % Monocytes % 5 % Eosinophils % 3 % Basophils % 1 % Neutrophils # 4.8 (1.3-7.7) k/uL Lymphocytes # 1.8 (1.0-4.8) k/uL Monocytes # 0.4 (0-1.0) k/uL Eosinophils # 0.2 (0-0.7) k/uL Basophils # 0.0 (0-0.2) k/uL Microcytosis Moderate Sodium 137 (137-145) mmol/L Potassium 4.7 (3.5-5.1) mmol/L Chloride 108 H (98-107) mmol/L Carbon Dioxide 16 L (22-30) mmol/L Anion Gap 13 mmol/L BUN 31 H (7-17) mg/dL Creatinine 1.67 H (0.52-1.04) mg/dL Est GFR (CKD-EPI)AfAm 38 (>60 ml/min/1.73 sqM) Est GFR (CKD-EPI)NonAf 33 (>60 ml/min/1.73 sqM) Glucose 117 H (74-99) mg/dL Calcium 9.4 (8.4-10.2) mg/dL Total Bilirubin 0.7 (0.2-1.3) mg/dL AST 30 (14-36) U/L ALT 20 (4-34) U/L Alkaline Phosphatase 78 (38-126) U/L Total Protein 7.3 (6.3-8.2) g/dL Albumin 4.4 (3.5-5.0) g/dL Lipase 129 (23-300) U/L Urine Color Yellow Urine Appearance Cloudy H (Clear) Urine pH 5.0 (5.0-8.0) Ur Specific [place] 1.010 (1.001-1.035) Urine Protein Negative (Negative) Urine Glucose (UA) Negative (Negative) Urine Ketones Negative (Negative) Urine Blood Negative (Negative) Urine Nitrite Negative (Negative) Urine Bilirubin Negative (Negative) Urine Urobilinogen <2.0 (<2.0) mg/dL Ur Leukocyte Esterase Large H (Negative) Urine RBC 3 (0-5) /hpf Urine WBC 15 H (0-5) /hpf Ur Squamous Epith Cells 3 (0-4) /hpf Urine Bacteria Rare H (None) /hpf Urine Mucus Rare H (None) /hpf Disposition Clinical Impression: Dehydration Disposition: HOME SELF-CARE Condition: Stable Instructions (If sedation given, give patient instructions): Dehydration (ED) Additional Instructions: Please return to the Emergency Department if symptoms worsen or any other concerns. Is patient prescribed a controlled substance at d/c from ED?: No Referrals: [facility],Clinic [Primary Care Provider] - 1-2 days Time of Disposition: 15:59
[2020-09-15] MEDS ORDERED: SODIUM CHLORIDE 0.9% 500 ML 500 ML IV STA (15:33)
[2020-09-15] MEDS ORDERED: SODIUM CHLORIDE 0.9% 1,000 ML IV STA (15:33)
[2020-09-15 17:15] VITALS: BP 151/73; PULSE 64
== END 2020-09-15 17:15 | disposition home or self-care (01) ==
LOC: EC 13:02
DX: E86.0 Dehydration (principal); J44.9 Chronic obstructive pulmonary disease, unspecified; E11.9 Type 2 diabetes mellitus without complications; E78.5 Hyperlipidemia, unspecified; I10 Essential (primary) hypertension; G47.33 Obstructive sleep apnea (adult) (pediatric); Z99.81 Dependence on supplemental oxygen; E07.9 Disorder of thyroid, unspecified; F32.9 Major depressive disorder, single episode, unspecified; G25.81 Restless legs syndrome; E66.9 Obesity, unspecified; Z90.49 Acquired absence of other specified parts of digestive tract; Z90.710 Acquired absence of both cervix and uterus; Z87.442 Personal history of urinary calculi
CPT/HCPCS: 36415; 74018; 80053; 81001; 83690; 85025; 87086; 96360; 96361; 99283

== ENCOUNTER 2020-09-16 10:39 | Emergency (ER) | payer OTHER ==
[2020-09-16 10:45] VITALS: BP 150/66; PULSE 72; RESP 18; TEMP 97.7
[2020-09-16 11:57] LABS: Basophils % (A) 1 %; Eosinophils # (A) 0.1 k/uL (0-0.7); Eosinophils % (A) 2 %; HCT 33.4 % (34.0-46.0); HGB 11.4 gm/dL (11.4-16.0); Lymphocytes # (A) 1.9 k/uL (1.0-4.8); Lymphocytes % (A) 24 %; MCH 24.8 pg (25.0-35.0); MCV 72.9 fL (80.0-100.0); Mean Platelet Volume 6.8; Microcytosis Moderate; Monocytes # (A) 0.3 k/uL (0-1.0); Monocytes % (A) 4 %; Neutrophils # (A) 5.5 k/uL (1.3-7.7); Neutrophils % (A) 69 %; Platelet Count 252 k/uL (150-450); RBC 4.58 m/uL (3.80-5.40); RDW 15.8 % (11.5-15.5); WBC 7.9 k/uL (3.8-10.6)
[2020-09-16 12:08] LABS: Calcium 8.9 mg/dL (8.4-10.2); Potassium 4.3 mmol/L (3.5-5.1); Total Bilirubin 0.3 mg/dL (0.2-1.3); Total Protein 6.7 g/dL (6.3-8.2)
--- NOTE | 2020-09-16 12:14 | CT ---
EXAMINATION TYPE: CT abdomen pelvis wo con DATE OF EXAM: 09/16/2020 COMPARISON: CT 05/04/2020 HISTORY: Non draining colostomy bag, possible SBO CT DLP: 1556.2 mGycm Automated exposure control for dose reduction was used. TECHNIQUE: Helical acquisition of images from the lung bases through the pelvis. FINDINGS: Lack of intravenous contrast could compromise sensitivity. LUNG BASES: No significant abnormality is appreciated. AORTA: No significant abnormality is appreciataed. LIVER/GB: Patient is post cholecystectomy. Liver shows no mass. PANCREAS: No significant abnormality is seen. SPLEEN: No significant abnormality is seen. ADRENALS: No significant abnormality is seen. KIDNEYS: No significant abnormality is seen. REPRODUCTIVE ORGANS: Not seen. URINARY BLADDER: No significant abnormality is seen. BOWEL: No evident bowel obstruction. There is redundancy of the distal bowel in the level of the ost bernadette and abdominal wall. FREE AIR: No Free Air is visible. ASCITES: None visible. PELVIC ADENOPATHY: None visualized. RETROPERITONEAL ADENOPATHY: No Retroperitoneal Adenopathy visible. 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 IMPRESSION: NONCONTRAST EXAM. POSTOP CHANGES. NONSPECIFIC FINDINGS, NO EVIDENT BOWEL OBSTRUCTION, FOLLOW-UP IN DICATED
--- NOTE | 2020-09-16 12:23 | ED ---
Recheck HPI - General Chief Complaint: Recheck/Abnormal Lab/Rx Stated Complaint: Revisit Ostomy Issue Time Seen by Provider: 09/16/20 11:08 Source: patient Mode of arrival: ambulatory Limitations: no limitations - History of Present Illness Initial Comments: 59-year-old female with a colostomy bag presents emergency Department with a chief complaint of colostomy function. States she has not developed any secretions in her colostomy since 3 PM yesterday. States she has been eating without any difficulties. Reports some nausea but denies any vomiting. Reports normal urine output otherwise. Denies any abdominal or back pain. Denies fever chills chest pain headache dizziness lightheadedness Shortness of breath. - Related Data Home Medications Medication Instructions Recorded Confirmed Loratadine [Claritin] 10 mg PO HS 06/09/15 08/25/20 Budesonide-Formot 160-4.5 Mcg 2 puff INHALATION RT-BID 03/17/16 08/25/20 [Symbicort 160-4.5 Mcg Inhaler] Albuterol Sulfate [Proair Hfa] 1 - 2 puff INHALATION RT-Q6H PRN 08/10/18 08/25/20 EPINEPHrine (Auto Inject) [Epipen] 0.3 mg IM ONCE PRN 04/19/20 08/25/20 Insulin Glargine,Hum.rec.anlog 40 unit SQ HS 04/19/20 08/25/20 [Lantus Solostar] Losartan [Cozaar] 50 mg PO BID 04/19/20 08/25/20 Sennosides/Docusate Sodium [Senna 1 tab PO BID 04/19/20 08/25/20 Plus 8.6-50 mg Tablet] metFORMIN HCL [Glucophage] 1,000 mg PO BID 04/19/20 08/25/20 Diltiazem HCl [Cartia Xt] 300 mg PO DAILY 07/14/20 08/25/20 INSULIN ASPART (NovoLOG) [NovoLOG 8 unit SQ AC-TID 07/14/20 08/25/20 (formulary)] ZOLMitriptan [ZOLMitriptan Odt] 5 mg PO DAILY PRN 07/14/20 08/25/20 rOPINIRole HCL [Requip] 4 mg PO HS 07/14/20 08/25/20 Atorvastatin Calcium [Lipitor] 40 mg PO HS 08/25/20 08/25/20 Cholecalciferol [Vitamin D3 (25 50 mcg PO DAILY 08/25/20 08/25/20 Mcg = 1000 Iu)] Previous Rx's Medication Instructions Recorded Ticagrelor [Brilinta] 90 mg PO BID #60 tab 08/12/18 Aspirin 81 mg PO DAILY 30 Days #30 chew 05/02/20 Allergies Allergy/AdvReac Type Severity Reaction Status Date / Time ammonia Allergy Unknown Verified 09/16/20 10:45 barium sulfate Allergy Unknown Verified 09/16/20 10:45 cephalexin [From Keflex] Allergy Unknown Verified 09/16/20 10:45 dulaglutide [From Trulicity] Allergy Dyspnea Verified 09/16/20 10:45 exenatide [From Byetta] Allergy Unknown Verified 09/16/20 10:45 feathers Allergy Unknown Verified 09/16/20 10:45 fexofenadine HCl Allergy Unknown Verified 09/16/20 10:45 [From Elena] hydrochlorothiazide Allergy Unknown Verified 09/16/20 10:45 influenza virus vaccine, Allergy Unknown Verified 09/16/20 10:45 specific isosorbide [From Imdur] Allergy Unknown Verified 09/16/20 10:45 meperidine HCl [From Demerol] Allergy Anaphylaxis Verified 09/16/20 10:45 nifedipine [From Procardia] Allergy Unknown Verified 09/16/20 10:45 nitroglycerin Allergy Unknown Verified 09/16/20 10:45 paroxetine [From Paxil] Allergy Unknown Verified 09/16/20 10:45 paroxetine HCl [From Paxil] Allergy Unknown Verified 09/16/20 10:45 sertraline HCl [From Zoloft] Allergy Unknown Verified 09/16/20 10:45 simvastatin [From Zocor] Allergy Unknown Verified 09/16/20 10:45 Hozwxcv-Eus-Oui Reductase Allergy Unknown Verified 09/16/20 10:45 Inhibitor venom-honey bee Allergy Anaphylaxis Verified 09/16/20 10:45 [bee venom (honey bee)] zolpidem [From Ambien] Allergy Unknown Verified 09/16/20 10:45 zolpidem tartrate Allergy Unknown Verified 09/16/20 10:45 [From Ambien] hay Allergy Dyspnea Uncoded 09/16/20 10:45 lysol Allergy Dyspnea Uncoded 09/16/20 10:45 Review of Systems ROS Statement: Those systems with pertinent positive or pertinent negative responses have been documented in the HPI. ROS Other: All systems not noted in ROS Statement are negative. Past Medical History Past Medical History: Asthma, COPD, CVA/TIA, Diabetes Mellitus, GERD/Reflux, Hearing Disorder / Deafness, Hyperlipidemia, Hypertension, Seizure Disorder, Sleep Apnea/CPAP/BIPAP, Thyroid Disorder Additional Past Medical History / Comment(s): additional hx: right bundle branch block,barretts esophagus, migraines, deanna hearing aids, lung nodules, fatty liver, pulmonary hypertension, heart murmur,obesity, IBS, RLS, arthritis, ADHD, DJD, anemia, lactose intolerance; last seizure 21 years ago, kidney stones x2 History of Any Multi-Drug Resistant Organisms: None Reported Past Surgical History: Bowel Resection, Cholecystectomy, Hysterectomy Additional Past Surgical History / Comment(s): breast biopsy,esophageal surgery - 2002, Colostomy Apr 2020 Past Anesthesia/Blood Transfusion Reactions: No Reported Reaction Additional Past Anesthesia/Blood Transfusion Reaction / Comment(s): gets nauseous at times. Past Psychological History: Anxiety, Depression Smoking Status: Never smoker Past Alcohol Use History: None Reported Past Drug Use History: None Reported - Past Family History Mother History Unknown: Yes Family Medical History: Congestive Heart Failure (CHF), Myocardial Infarction ([place]) Additional Family Medical History / Comment(s): 77 Father History Unknown: Yes Family Medical History: COPD, Myocardial Infarction ([place]) Additional Family Medical History / Comment(s): at 56 Sister(s) History Unknown: Yes Family Medical History: Myocardial Infarction ([place]) Additional Family Medical History / Comment(s): at 56 Brother(s) Family Medical History: Cancer Additional Family Medical History / Comment(s): colon cancer General Exam Limitations: no limitations General appearance: alert, in no apparent distress, obese Head exam: Present: atraumatic, normocephalic, normal inspection Eye exam: Present: normal appearance, PERRL, EOMI Pupils: Present: normal accommodation ENT exam: Present: normal exam, normal oropharynx, mucous membranes moist, TM's normal bilaterally, normal external ear exam Neck exam: Present: normal inspection, full ROM. Absent: tenderness Respiratory exam: Present: normal lung sounds bilaterally. Absent: respiratory distress, wheezes, rales, rhonchi, stridor, chest wall tenderness, accessory muscle use Cardiovascular Exam: Present: regular rate, normal rhythm, normal heart sounds. Absent: systolic murmur GI/Abdominal exam: Present: soft. Absent: distended, tenderness, guarding, rebound, rigid Extremities exam: Present: normal inspection, full ROM. Absent: tenderness Back exam: Present: normal inspection, full ROM. Absent: tenderness, CVA t enderness (R), CVA tenderness (L) Neurological exam: Present: alert, oriented X3 Psychiatric exam: Present: normal affect, normal mood Skin exam: Present: warm, dry, intact, normal color Course Vital Signs 09/16/20 10:41 Temperature 97.7 F Pulse Rate 72 Respiratory 18 Rate Blood Pressure 150/66 O2 Sat by Pulse 96 Oximetry Medical Decision Making - Medical Decision Making 59-year-old female with a colostomy bag presents emergency Department with a chief complaint of colostomy function. Physical examination is unremarkable. Her kidney function is actually improved compared to yesterday. However, we'll cannot obtain a CT of the abdomen without contrast so it was a noncontrasted study. In revealed no acute findings. I advised the patient to return should resistant softer food to her diet in order to promote better movement. She has a spoken to Dr. Sherman and will be in contact with him tomorrow. Return parameters were discussed with patient standing agreeable. Case discussed with Dr. Foy. - Lab Data Result diagrams: 09/16/20 11:44 09/16/20 11:44 Lab Results 09/16/20 09/16/20 Range/Units 11:44 11:44 WBC 7.9 (3.8-10.6) k/uL RBC 4.58 (3.80-5.40) m/uL Hgb 11.4 (11.4-16.0) gm/dL Hct 33.4 L (34.0-46.0) % MCV 72.9 L (80.0-100.0) fL MCH 24.8 L (25.0-35.0) pg MCHC 34.0 (31.0-37.0) g/dL RDW 15.8 H (11.5-15.5) % Plt Count 252 (150-450) k/uL MPV 6.8 Neutrophils % 69 % Lymphocytes % 24 % Monocytes % 4 % Eosinophils % 2 % Basophils % 1 % Neutrophils # 5.5 (1.3-7.7) k/uL Lymphocytes # 1.9 (1.0-4.8) k/uL Monocytes # 0.3 (0-1.0) k/uL Eosinophils # 0.1 (0-0.7) k/uL Basophils # 0.0 (0-0.2) k/uL Microcytosis Moderate Sodium 140 (137-145) mmol/L Potassium 4.3 (3.5-5.1) mmol/L Chloride 112 H (98-107) mmol/L Carbon Dioxide 18 L (22-30) mmol/L Anion Gap 10 mmol/L BUN 26 H (7-17) mg/dL Creatinine 1.23 H (0.52-1.04) mg/dL Est GFR (CKD-EPI)AfAm 55 (>60 ml/min/1.73 sqM) Est GFR (CKD-EPI)NonAf 48 (>60 ml/min/1.73 sqM) Glucose 127 H (74-99) mg/dL Calcium 8.9 (8.4-10.2) mg/dL Total Bilirubin 0.3 (0.2-1.3) mg/dL AST 21 (14-36) U/L ALT 17 (4-34) U/L Alkaline Phosphatase 82 (38-126) U/L Total Protein 6.7 (6.3-8.2) g/dL Albumin 4.0 (3.5-5.0) g/dL Disposition Clinical Impression: Nausea Disposition: HOME SELF-CARE Condition: Stable Instructions (If sedation given, give patient instructions): Colostomy Care (ED) Additional Instructions: Please return to the Emergency Department if symptoms worsen or any other concerns. Is patient prescribed a controlled substance at d/c from ED?: No Referrals: [facility],Clinic [Primary Care Provider] - 1-2 days Time of Disposition: 12:38
== END 2020-09-16 13:17 | disposition home or self-care (01) ==
LOC: EC 10:39
DX: R11.0 Nausea (principal); E11.9 Type 2 diabetes mellitus without complications; E78.5 Hyperlipidemia, unspecified; G40.909 Epilepsy, unspecified, not intractable, without status epilepticus; I10 Essential (primary) hypertension; J44.9 Chronic obstructive pulmonary disease, unspecified; K21.9 Gastro-esophageal reflux disease without esophagitis; K58.9 Irritable bowel syndrome, unspecified; F41.9 Anxiety disorder, unspecified; F32.9 Major depressive disorder, single episode, unspecified; E66.9 Obesity, unspecified; Z86.73 Personal history of transient ischemic attack (TIA), and cerebral infarction without residual deficits; Z87.19 Personal history of other diseases of the digestive system; Z87.442 Personal history of urinary calculi; Z79.4 Long term (current) use of insulin; Z79.51 Long term (current) use of inhaled steroids; Z79.82 Long term (current) use of aspirin; Z68.43 Body mass index [BMI] 50.0-59.9, adult; Z93.3 Colostomy status
CPT/HCPCS: 36415; 74176; 80053; 85025; 99284

== ENCOUNTER 2020-11-07 13:50 | Emergency (ER) | payer OTHER ==
[2020-11-07] MEDS ORDERED: SODIUM CHLORIDE 0.9% 1,000 ML IV STA (14:31)
[2020-11-07] MEDS ORDERED: ACETAMINOPHEN TAB 500 MG TAB PO STA (14:32)
[2020-11-07 15:19] LABS: Anisocytosis Slight; Basophils % (A) 0 %; Eosinophils # (A) 0.1 k/uL (0-0.7); Eosinophils % (A) 1 %; HCT 26.3 % (34.0-46.0); Hypochromasia Slight; Lymphocytes # (A) 0.7 k/uL (1.0-4.8); Lymphocytes % (A) 6 %; MCH 24.3 pg (25.0-35.0); MCHC 30.7 g/dL (31.0-37.0); Mean Platelet Volume 7.5; Microcytosis Slight; Monocytes # (A) 0.5 k/uL (0-1.0); Monocytes % (A) 3 %; Neutrophils # (A) 11.9 k/uL (1.3-7.7); Neutrophils % (A) 89 %; Platelet Count 397 k/uL (150-450); RBC 3.32 m/uL (3.80-5.40); RDW 17.3 % (11.5-15.5); WBC 13.5 k/uL (3.8-10.6)
[2020-11-07 15:21] LABS: ALT 12 U/L (4-34); AST 26 U/L (14-36); African American GFR (CKD) 32 (>60 ml/min/1.73 sqM); Albumin 3.4 g/dL (3.5-5.0); Alkaline Phosphatase 128 U/L (38-126); Amylase <30 U/L (30-110); Anion Gap 10 mmol/L; Blood Urea Nitrogen 18 mg/dL (7-17); Calcium 8.3 mg/dL (8.4-10.2); Carbon Dioxide 26 mmol/L (22-30); Chloride 95 mmol/L (98-107); Glucose 255 mg/dL (74-99); Lipase 92 U/L (23-300); Magnesium 2.1 mg/dL (1.6-2.3); Non-African American GFR(CKD) 28 (>60 ml/min/1.73 sqM); Potassium 4.3 mmol/L (3.5-5.1); Sodium 131 mmol/L (137-145); Total Bilirubin 0.3 mg/dL (0.2-1.3); Total Protein 6.2 g/dL (6.3-8.2)
[2020-11-07 15:26] LABS: Partial Thromboplastin Time 22.6 sec (22.0-30.0); Prothrombin Time 10.6 sec (9.0-12.0)
--- NOTE | 2020-11-07 15:46 | ED ---
Arrhythmia/Palpitations HPI - General Chief Complaint: Arrhythmia/Palpitations Stated Complaint: Palpitations,Fever Time Seen by Provider: 11/07/20 14:24 Source: patient Mode of arrival: wheelchair Limitations: no limitations - History of Present Illness Initial Comments: Patient is a 59-year-old female that presents to emergency department with not feeling well status post colostomy reversal at the [facility]. Patient notes that her surgeon was Dr. Gordillo. Upon initial exam patient was lethargic pale. Daughter notes that she's been acting this way ever since she was discharged. She notes that she's been feverish. Daughter did have discharge papers that did say to return to the hospital if any fevers or other red flag symptoms happen. Patient denied any chest pain shortness of breath headache nausea vomiting diarrhea constipation - Related Data Home Medications Medication Instructions Recorded Confirmed Loratadine [Claritin] 10 mg PO HS PRN 06/09/15 11/07/20 Budesonide-Formot 160-4.5 Mcg 2 puff INHALATION RT-BID 03/17/16 11/07/20 [Symbicort 160-4.5 Mcg Inhaler] Albuterol Sulfate [Proair Hfa] 1 - 2 puff INHALATION RT-Q6H PRN 08/10/18 11/07/20 EPINEPHrine (Auto Inject) [Epipen] 0.3 mg IM ONCE PRN 04/19/20 11/07/20 Insulin Glargine,Hum.rec.anlog 40 unit SQ HS 04/19/20 11/07/20 [Lantus Solostar] Losartan [Cozaar] 50 mg PO BID 04/19/20 11/07/20 Sennosides/Docusate Sodium [Senna 1 tab PO BID PRN 04/19/20 11/07/20 Plus 8.6-50 mg Tablet] metFORMIN HCL [Glucophage] 1,000 mg PO BID 04/19/20 11/07/20 Diltiazem HCl [Cartia Xt] 300 mg PO DAILY 07/14/20 11/07/20 INSULIN ASPART (NovoLOG) [NovoLOG 8 unit SQ AC-TID 07/14/20 11/07/20 (formulary)] rOPINIRole HCL [Requip] 4 mg PO HS 07/14/20 11/07/20 Atorvastatin Calcium [Lipitor] 40 mg PO HS 08/25/20 11/07/20 Hydrophilic Cream [Triad Cream] 1 applic TOPICAL BID 11/07/20 11/07/20 Previous Rx's Medication Instructions Recorded Ticagrelor [Brilinta] 90 mg PO BID #60 tab 08/12/18 Aspirin 81 mg PO DAILY 30 Days #30 chew 05/02/20 Allergies Allergy/AdvReac Type Severity Reaction Status Date / Time amlodipine Allergy Headache Verified 11/07/20 17:56 ammonia Allergy Unknown Verified 11/07/20 14:00 atenolol Allergy Dyspnea, Verified 11/07/20 17:56 Migraine barium sulfate Allergy Unknown Verified 11/07/20 14:00 cephalexin [From Keflex] Allergy Dyspnea Verified 11/07/20 17:56 diphenhydramine Allergy Hypertensio Verified 11/07/20 17:56 n dulaglutide [From Trulicity] Allergy Dyspnea Verified 11/07/20 14:00 exenatide [From Byetta] Allergy Unknown Verified 11/07/20 14:00 feathers Allergy Anaphylaxis Verified 11/07/20 17:56 fexofenadine HCl Allergy Muscle Pain Verified 11/07/20 17:56 [From Elena] fluoxetine Allergy "Feeling Verified 11/07/20 17:56 Irritable" fluvastatin Allergy Muscle Pain Verified 11/07/20 17:56 guaifenesin Allergy Unknown Verified 11/07/20 17:56 hydrochlorothiazide Allergy Tachycardia Verified 11/07/20 17:56 influenza virus vaccine, Allergy Unknown Verified 11/07/20 14:00 specific isosorbide [From Imdur] Allergy Migraine Verified 11/07/20 17:56 lisinopril Allergy Fatigue, Verified 11/07/20 17:56 Cough meperidine [From Demerol] Allergy Hives, Verified 11/07/20 17:56 Rash, Hypotension meperidine HCl [From Demerol] Allergy Anaphylaxis Verified 11/07/20 14:00 mint Allergy Unknown Verified 11/07/20 17:56 modafinil Allergy Headache Verified 11/07/20 17:56 mold Allergy Unknown Verified 11/07/20 17:56 nifedipine [From Procardia] Allergy Unknown Verified 11/07/20 14:00 nitroglycerin Allergy Dizziness Verified 11/07/20 17:56 ondansetron [From Zofran] Allergy Nausea Verified 11/07/20 17:56 paroxetine [From Paxil] Allergy "Depression Verified 11/07/20 17:56 " paroxetine HCl [From Paxil] Allergy "Depressed" Verified 11/07/20 17:56 pneumococcal vaccine Allergy Unknown Verified 11/07/20 17:56 sertraline HCl [From Zoloft] Allergy Fatigue Verified 11/07/20 17:56 simvastatin [From Zocor] Allergy Swelling Verified 11/07/20 17:56 Atdntyj-Zpb-Olh Reductase Allergy Unknown Verified 11/07/20 14:00 Inhibitor sumatriptan Allergy Palpitation Verified 11/07/20 17:56 s venlafaxine [From Effexor] Allergy Tachycardia Verified 11/07/20 17:56 venom-honey bee Allergy Anaphylaxis Verified 11/07/20 14:00 [bee venom (honey bee)] wool Allergy Unknown Verified 11/07/20 17:56 zolpidem [From Ambien] Allergy Dyspnea, Verified 11/07/20 17:56 Migraine zolpidem tartrate Allergy Dyspnea, Verified 11/07/20 17:56 [From Ambien] Migraine fexofenadine [From Elena] AdvReac Migraine Verified 11/07/20 17:56 hay Allergy Dyspnea Uncoded 11/07/20 14:00 lysol Allergy Dyspnea Uncoded 11/07/20 14:00 Review of Systems ROS Statement: Those systems with pertinent positive or pertinent negative responses have been documented in the HPI. ROS Other: All systems not noted in ROS Statement are negative. Past Medical History Past Medical History: Asthma, COPD, CVA/TIA, Diabetes Mellitus, GERD/Reflux, Hearing Disorder / Deafness, Hyperlipidemia, Hypertension, Seizure Disorder, Sleep Apnea/CPAP/BIPAP, Thyroid Disorder Additional Past Medical History / Comment(s): additional hx: right bundle branch block,barretts esophagus, migraines, deanna hearing aids, lung nodules, fatty liver, pulmonary hypertension, heart murmur,obesity, IBS, RLS, arthritis, ADHD, DJD, anemia, lactose intolerance; last seizure 21 years ago, kidney stones x2 History of Any Multi-Drug Resistant Organisms: None Reported Past Surgical History: Bowel Resection, Cholecystectomy, Hysterectomy Additional Past Surgical History / Comment(s): breast biopsy,esophageal surgery - 2002, Colostomy Apr 2020, colostomy reversed october 2020 Past Anesthesia/Blood Transfusion Reactions: No Reported Reaction Additional Past Anesthesia/Blood Transfusion Reaction / Comment(s): gets nauseous at times. Past Psychological History: Anxiety, Depression Smoking Status: Never smoker Past Alcohol Use History: None Reported Past Drug Use History: None Reported - Past Family History Mother History Unknown: Yes Family Medical History: Congestive Heart Failure (CHF), Myocardial Infarction ([place]) Additional Family Medical History / Comment(s): 77 Father History Unknown: Yes Family Medical History: COPD, Myocardial Infarction ([place]) Additional Family Medical History / Comment(s): at 56 Sister(s) History Unknown: Yes Family Medical History: Myocardial Infarction ([place]) Additional Family Medical History / Comment(s): at 56 Brother(s) Family Medical History: Cancer Additional Family Medical History / Comment(s): colon cancer General Exam Limitations: no limitations General appearance: alert, in no apparent distress, obese Head exam: Present: atraumatic, normocephalic, normal inspection Eye exam: Present: normal appearance, PERRL, EOMI. Absent: scleral icterus, conjunctival injection, periorbital swelling Neck exam: Present: normal inspection Respiratory exam: Present: normal lung sounds bilaterally. Absent: respiratory distress, wheezes, rales, rhonchi, stridor Cardiovascular Exam: Present: regular rate, normal rhythm, normal heart sounds. Absent: systolic murmur, diastolic murmur, rubs, gallop, clicks GI/Abdominal exam: Present: soft, normal bowel sounds, other (AMBER drain in place.). Absent: distended, tenderness, guarding, rebound, rigid Extremities exam: Present: normal inspection, full ROM, normal capillary refill. Absent: tenderness, pedal edema, joint swelling, calf tenderness Neurological exam: Present: alert, oriented X3 Psychiatric exam: Present: normal affect, normal mood Skin exam: Present: warm, dry, intact, normal color. Absent: rash Course Vital Signs 11/07/20 11/07/20 11/07/20 13:54 16:32 17:00 Temperature 102.6 F H 100.4 F H Pulse Rate 94 85 89 Respiratory 22 16 16 Rate Blood Pressure 146/53 129/63 136/79 O2 Sat by Pulse 88 L 95 99 Oximetry 11/07/20 18:22 Temperature 98.7 F Pulse Rate 86 Respiratory 16 Rate Blood Pressure 136/76 O2 Sat by Pulse 96 Oximetry EKG Findings - EKG Comments: EKG Findings:: Ventricular rate 92 bpm, CA interval 154 ms, QRS duration 122 ms, QTC 477 ms, PRT axes 49//29. Normal sinus rhythm, right bundle branch blo ck, T wave abnormality consider lateral ischemia, abnormal ECG. Medical Decision Making - Medical Decision Making 59-year-old female complaining of fever up patient's status post colostomy reversal. Labs, KUB, chest x-ray, 1 L normal saline, CT of the abdomen and pelvis, EKG, monitor worker, oxygen via nasal cannula at 4 L/m, 1000 mg of Tylenol ordered. Labs: White blood cells 13.5 BU when 18, creatinine 1.90 troponin 0.[address] Guerrero Patient will be transferred to the [facility] in [facility]. Both internal medicine and general surgery were consulted and will accept the admit. - Lab Data Result diagrams: 11/07/20 14:59 11/07/20 14:59 Lab Results 11/07/20 11/07/20 11/07/20 Range/Units 14:59 14:59 14:59 WBC 13.5 H (3.8-10.6) k/uL RBC 3.32 L (3.80-5.40) m/uL Hgb 8.1 L D (11.4-16.0) gm/dL Hct 26.3 L (34.0-46.0) % MCV 79.2 L D (80.0-100.0) fL MCH 24.3 L (25.0-35.0) pg MCHC 30.7 L (31.0-37.0) g/dL RDW 17.3 H (11.5-15.5) % Plt Count 397 (150-450) k/uL MPV 7.5 Neutrophils % 89 % Lymphocytes % 6 % Monocytes % 3 % Eosinophils % 1 % Basophils % 0 % Neutrophils # 11.9 H (1.3-7.7) k/uL Lymphocytes # 0.7 L (1.0-4.8) k/uL Monocytes # 0.5 (0-1.0) k/uL Eosinophils # 0.1 (0-0.7) k/uL Basophils # 0.0 (0-0.2) k/uL Hypochromasia Slight Anisocytosis Slight Microcytosis Slight PT 10.6 (9.0-12.0) sec INR 1.0 (<1.2) APTT 22.6 (22.0-30.0) sec Sodium 131 L (137-145) mmol/L Potassium 4.3 (3.5-5.1) mmol/L Chloride 95 L (98-107) mmol/L Carbon Dioxide 26 (22-30) mmol/L Anion Gap 10 mmol/L BUN 18 H (7-17) mg/dL Creatinine 1.90 H (0.52-1.04) mg/dL Est GFR (CKD-EPI)AfAm 32 (>60 ml/min/1.73 sqM) Est GFR (CKD-EPI)NonAf 28 (>60 ml/min/1.73 sqM) Glucose 255 H (74-99) mg/dL POC Glucose (mg/dL) (75-99) mg/dL POC Glu Legal Project Manager ID Plasma Lactic Acid Mitchell (0.7-2.0) mmol/L Calcium 8.3 L (8.4-10.2) mg/dL Magnesium 2.1 (1.6-2.3) mg/dL Total Bilirubin 0.3 (0.2-1.3) mg/dL AST 26 (14-36) U/L ALT 12 (4-34) U/L Alkaline Phosphatase 128 H (38-126) U/L Troponin I (0.000-0.034) ng/mL Total Protein 6.2 L (6.3-8.2) g/dL Albumin 3.4 L (3.5-5.0) g/dL Amylase <30 L (30-110) U/L Lipase 92 (23-300) U/L Urine Color Urine Appearance (Clear) Urine pH (5.0-8.0) Ur Specific Aurora (1.001-1.035) Urine Protein (Negative) Urine Glucose (UA) (Negative) Urine Ketones (Negative) Urine Blood (Negative) Urine Nitrite (Negative) Urine Bilirubin (Negative) Urine Urobilinogen (<2.0) mg/dL Ur Leukocyte Esterase (Negative) Urine RBC (0-5) /hpf Urine WBC (0-5) /hpf Ur Squamous Epith Cells (0-4) /hpf Amorphous Sediment (None) /hpf Urine Bacteria (None) /hpf Urine Mucus (None) /hpf Coronavirus (PCR) (Not Detectd) 11/07/20 11/07/20 11/07/20 Range/Units 14:59 14:59 16:26 WBC (3.8-10.6) k/uL RBC (3.80-5.40) m/uL Hgb (11.4-16.0) gm/dL Hct (34.0-46.0) % MCV (80.0-100.0) fL MCH (25.0-35.0) pg MCHC (31.0-37.0) g/dL RDW (11.5-15.5) % Plt Count (150-450) k/uL MPV Neutrophils % % Lymphocytes % % Monocytes % % Eosinophils % % Basophils % % Neutrophils # (1.3-7.7) k/uL Lymphocytes # (1.0-4.8) k/uL Monocytes # (0-1.0) k/uL Eosinophils # (0-0.7) k/uL Basophils # (0-0.2) k/uL Hypochromasia Anisocytosis Microcytosis PT (9.0-12.0) sec INR (<1.2) APTT (22.0-30.0) sec Sodium (137-145) mmol/L Potassium (3.5-5.1) mmol/L Chloride (98-107) mmol/L Carbon Dioxide (22-30) mmol/L Anion Gap mmol/L BUN (7-17) mg/dL Creatinine (0.52-1.04) mg/dL Est GFR (CKD-EPI)AfAm (>60 ml/min/1.73 sqM) Est GFR (CKD-EPI)NonAf (>60 ml/min/1.73 sqM) Glucose (74-99) mg/dL POC Glucose (mg/dL) 250 H (75-99) mg/dL POC Glu Legal Project Manager ID Violette Verma Plasma Lactic Acid Mitchell 1.1 (0.7-2.0) mmol/L Calcium (8.4-10.2) mg/dL Magnesium (1.6-2.3) mg/dL Total Bilirubin (0.2-1.3) mg/dL AST (14-36) U/L ALT (4-34) U/L Alkaline Phosphatase (38-126) U/L Troponin I 0.065 H* (0.000-0.034) ng/mL Total Protein (6.3-8.2) g/dL Albumin (3.5-5.0) g/dL Amylase (30-110) U/L Lipase (23-300) U/L Urine Color Urine Appearance (Clear) Urine pH (5.0-8.0) Ur Specific Aurora (1.001-1.035) Urine Protein (Negative) Urine Glucose (UA) (Negative) Urine Ketones (Negative) Urine Blood (Negative) Urine Nitrite (Negative) Urine Bilirubin (Negative) Urine Urobilinogen (<2.0) mg/dL Ur Leukocyte Esterase (Negative) Urine RBC (0-5) /hpf Urine WBC (0-5) /hpf Ur Squamous Epith Cells (0-4) /hpf Amorphous Sediment (None) /hpf Urine Bacteria (None) /hpf Urine Mucus (None) /hpf Coronavirus (PCR) (Not Detectd) 11/07/20 11/07/20 Range/Units 18:22 18:40 WBC (3.8-10.6) k/uL RBC (3.80-5.40) m/uL Hgb (11.4-16.0) gm/dL Hct (34.0-46.0) % MCV (80.0-100.0) fL MCH (25.0-35.0) pg MCHC (31.0-37.0) g/dL RDW (11.5-15.5) % Plt Count (150-450) k/uL MPV Neutrophils % % Lymphocytes % % Monocytes % % Eosinophils % % Basophils % % Neutrophils # (1.3-7.7) k/uL Lymphocytes # (1.0-4.8) k/uL Monocytes # (0-1.0) k/uL Eosinophils # (0-0.7) k/uL Basophils # (0-0.2) k/uL Hypochromasia Anisocytosis Microcytosis PT (9.0-12.0) sec INR (<1.2) APTT (22.0-30.0) sec Sodium (137-145) mmol/L Potassium (3.5-5.1) mmol/L Chloride (98-107) mmol/L Carbon Dioxide (22-30) mmol/L Anion Gap mmol/L BUN (7-17) mg/dL Creatinine (0.52-1.04) mg/dL Est GFR (CKD-EPI)AfAm (>60 ml/min/1.73 sqM) Est GFR (CKD-EPI)NonAf (>60 ml/min/1.73 sqM) Glucose (74-99) mg/dL POC Glucose (mg/dL) (75-99) mg/dL POC Glu Legal Project Manager ID Plasma Lactic Acid Mitchell (0.7-2.0) mmol/L Calcium (8.4-10.2) mg/dL Magnesium (1.6-2.3) mg/dL Total Bilirubin (0.2-1.3) mg/dL AST (14-36) U/L ALT (4-34) U/L Alkaline Phosphatase (38-126) U/L Troponin I (0.000-0.034) ng/mL Total Protein (6.3-8.2) g/dL Albumin (3.5-5.0) g/dL Amylase (30-110) U/L Lipase (23-300) U/L Urine Color Yellow Urine Appearance Cloudy H (Clear) Urine pH 5.5 (5.0-8.0) Ur Specific Aurora 1.009 (1.001-1.035) Urine Protein 1+ H (Negative) Urine Glucose (UA) Negative (Negative) Urine Ketones Negative (Negative) Urine Blood Negative (Negative) Urine Nitrite Negative (Negative) Urine Bilirubin Negative (Negative) Urine Urobilinogen <2.0 (<2.0) mg/dL Ur Leukocyte Esterase Small H (Negative) Urine RBC 3 (0-5) /hpf Urine WBC 6 H (0-5) /hpf Ur Squamous Epith Cells 3 (0-4) /hpf Amorphous Sediment Occasional H (None) /hpf Urine Bacteria Rare H (None) /hpf Urine Mucus Rare H (None) /hpf Coronavirus (PCR) Not Detected (Not Detectd) - Radiology Data Radiology results: report reviewed, image reviewed KUB: Exam somewhat limited by patient's body habitus. Postop changes. Prominence of the heart may be technical. Dialysis catheter present in the lower abdomen. Chest x-ray: Mildly increased infrahilar stranding densities may reflect developing infiltrate and/or atelectasis. CT of the abdomen and pelvis: There is a fluid collection within the left paracolic gutter extending into the left hemipelvis which measures approximately 15.54.2 cm. I cannot exclude a week with foci of air adjacent to the anastomosis seen best on image 108 left 164. Infected collection is not excluded. Disposition Clinical Impression: Sepsis, Postoperative infection Disposition: OTHER INSTITUTION NOT DEFINED Condition: Stable Is patient prescribed a controlled substance at d/c from ED?: No Referrals: [facility],Clinic [Primary Care Provider] - 1-2 days Time of Disposition: 19:28 - Out of Hospital Transfer - Req. Specs Out of Hospital Transfer - Requested Specifics: Other Emergency Center ([facility])
--- NOTE | 2020-11-07 15:51 | XR ---
EXAMINATION TYPE: XR chest 2V DATE OF EXAM: 11/07/2020 HISTORY: Shortness of breath. COMPARISON: 07/14/2020 TECHNIQUE: Single view of the chest is submitted. FINDINGS: Demonstrated are scattered senescent parenchymal change. Mildly increased infrahilar strandy densities may reflect developing infiltrate and/or atelectasis. The heart is stable. Hilar and mediastinal structures are within normal limits. Degenerative changes are seen of the dorsal spine. IMPRESSION: 1. Mildly increased infrahilar strandy densities may reflect developing infiltrate and/or atelectasi s.
--- NOTE | 2020-11-07 15:55 | XR ---
KUB HISTORY: Altered mental status, postop Frontal KUB submitted on 5 images Correlation to prior KUB 09/15/2020, CT 09/16/2020 Surgical clips are present right upper quadrant. The heart is enlarged. No evident pneumoperitoneum o r bowel obstruction. Degenerative disc changes are present in the visualized spine. Surgical clips pr esent in left lower quadrant. There is a catheter coursing across the midline which likely related to dialysis. Exam somewhat limited. IMPRESSION: Exam somewhat limited by patient body habitus. Postop changes. Prominence of the heart ma y be technical. Dialysis catheter present in the lower abdomen.
[2020-11-07 16:13] LABS: HGB 8.1 gm/dL (11.4-16.0)
[2020-11-07 16:14] LABS: MCV 79.2 fL (80.0-100.0)
[2020-11-07 16:28] LABS: Glucose,Whole Blood 250 mg/dL (75-99)
--- NOTE | 2020-11-07 16:48 | CT ---
EXAMINATION TYPE: CT abdomen pelvis wo con DATE OF EXAM: 11/07/2020 COMPARISON: 09/16/2020 HISTORY: generalized pain post op paniculectomy and colostomy reversal CT DLP: 1816 mGycm Examination of the solid and hollow viscera is limited given the lack of contrast. FINDINGS: LUNG BASES: No evidence for nodule. No evidence for infiltrate. Right basilar linear atelectasis. LIVER/GB: The gallbladder surgically absent. No space-occupying hepatic lesion. PANCREAS: No pancreatic mass identified. No inflammatory process seen. SPLEEN: No evidence for splenomegaly. No intrasplenic lesions seen. ADRENALS: No adrenal nodules identified. No evidence for thickening. KIDNEYS: No evidence for renal mass. No nephrolithiasis. No hydronephrosis. BOWEL: There is interval colostomy reversal. There is a fluid collection within the left paracolic gu tter extending into the left hemipelvis which measures approximately 15.5 x 4.2 cm. I cannot exclude a leak is focus of air adjacent to the anastomosis seen best on image 108 OF 164 . Infected collectio n is not excluded. Drainage catheter is noted overlying the anterior abdominal wall. The changes atte nuation seen. Lymph nodes: No evidence for adenopathy greater than 1 cm. Abdominal aorta: Atheromatous changes seen. No evidence for aneurysm. Genital organs: No significant abnormality. Other: No significant abnormality. IMPRESSION: 1. There is a fluid collection within the left paracolic gutter extending into the left hemipelvis wh ich measures approximately 15.5 x 4.2 cm. I cannot exclude a leak with foci of air adjacent to the a nastomosis seen best on image 108 OF 164. Infected collection is not excluded.
[2020-11-07] MEDS ORDERED: LEVOFLOXACIN 750MG-D5W PMX 750 MG in DEXTROSE/WATER 1 150ML.BAG IVPB STA (18:24)
[2020-11-07] MEDS ORDERED: metroNIDAZOLE-NS PMX 500 MG in SALINE 1 100ML.BAG IVPB STA (18:24)
[2020-11-07 18:25] VITALS: TEMP 98.7
[2020-11-07 18:36] LABS: Amorphous Sediment,Urine Occasional /hpf; Appearance,Urine Cloudy (Clear); Bacteria,Urine Rare /hpf; Bilirubin,Urine Negative (Negative); Blood,Urine Negative (Negative); Color,Urine Yellow; Glucose,Urine (UA) Negative (Negative); Ketones,Urine Negative (Negative); Leukocyte Esterase,Urine Small (Negative); Mucus,Urine Rare /hpf; Nitrite,Urine Negative (Negative); PH, Urine 5.5 (5.0-8.0); Protein,Urine 1+ (Negative); RBC,Urine 3 /hpf (0-5); Specific Gravity,Urine 1.009 (1.001-1.035); Squamous Epithelial Cell,Urine 3 /hpf (0-4); Urobilinogen,Urine <2.0 mg/dL (<2.0); WBC,Urine 6 /hpf (0-5)
[2020-11-07 21:19] VITALS: RESP 22
[2020-11-07 23:44] VITALS: BP 152/81; PULSE 88
== END 2020-11-08 01:44 | disposition other institution (70) ==
LOC: EC 13:50
DX: T81.40XA Infection following a procedure, unspecified, initial encounter (principal); A41.9 Sepsis, unspecified organism; E11.9 Type 2 diabetes mellitus without complications; E66.9 Obesity, unspecified; E78.5 Hyperlipidemia, unspecified; G25.81 Restless legs syndrome; G40.909 Epilepsy, unspecified, not intractable, without status epilepticus; I10 Essential (primary) hypertension; I27.20 Pulmonary hypertension, unspecified; J44.9 Chronic obstructive pulmonary disease, unspecified; K21.9 Gastro-esophageal reflux disease without esophagitis; Z79.4 Long term (current) use of insulin; Z79.82 Long term (current) use of aspirin; Z86.73 Personal history of transient ischemic attack (TIA), and cerebral infarction without residual deficits; Z87.442 Personal history of urinary calculi; Z68.43 Body mass index [BMI] 50.0-59.9, adult
CPT/HCPCS: 36415; 93005; 80053; 82150; 83605; 83690; 83735; 84484; 85025; 85610; 85730; 81001; 87040; 87635; 71046; 74018; 74176; 99284; 96365; 96361 ×2; J1956; 96374; 96375

== ENCOUNTER 2021-05-11 22:54 | Emergency (ER) | payer OTHER ==
[2021-05-11 22:59] VITALS: TEMP 98.1
[2021-05-11 23:32] LABS: Anisocytosis Slight; Basophils % (A) 0 %; Eosinophils # (A) 0.2 k/uL (0-0.7); Eosinophils % (A) 2 %; HCT 36.6 % (34.0-46.0); HGB 11.2 gm/dL (11.4-16.0); Hypochromasia Marked; Lymphocytes # (A) 1.7 k/uL (1.0-4.8); Lymphocytes % (A) 15 %; MCH 22.6 pg (25.0-35.0); MCHC 30.7 g/dL (31.0-37.0); MCV 73.6 fL (80.0-100.0); Mean Platelet Volume 7.1; Microcytosis Moderate; Monocytes # (A) 0.4 k/uL (0-1.0); Monocytes % (A) 3 %; Neutrophils # (A) 8.9 k/uL (1.3-7.7); Neutrophils % (A) 78 %; Platelet Count 345 k/uL (150-450); RBC 4.97 m/uL (3.80-5.40); RDW 16.8 % (11.5-15.5); WBC 11.4 k/uL (3.8-10.6)
--- NOTE | 2021-05-11 23:34 | XR ---
EXAMINATION TYPE: XR chest 2V DATE OF EXAM: 05/11/2021 COMPARISON: 11/07/2020 HISTORY: Chest pain TECHNIQUE: FINDINGS: Heart is normal. Lungs are clear of consolidation. There is slight blunting of the costophr enic angles. There are no hilar masses. There are chest leads. Bony thorax is intact. IMPRESSION: Minimal pleural reaction at the lung bases without change. Normal heart.
[2021-05-11 23:45] LABS: ALT 27 U/L (4-34); AST 47 U/L (14-36); African American GFR (CKD) >90 (>60 ml/min/1.73 sqM); Albumin 4.2 g/dL (3.5-5.0); Alkaline Phosphatase 123 U/L (38-126); Anion Gap 14 mmol/L; Blood Urea Nitrogen 21 mg/dL (7-17); Calcium 9.4 mg/dL (8.4-10.2); Carbon Dioxide 19 mmol/L (22-30); Chloride 102 mmol/L (98-107); Glucose 260 mg/dL (74-99); Magnesium 1.6 mg/dL (1.6-2.3); Non-African American GFR(CKD) >90 (>60 ml/min/1.73 sqM); Potassium 4.6 mmol/L (3.5-5.1); Sodium 135 mmol/L (137-145); Total Bilirubin 0.5 mg/dL (0.2-1.3); Total Protein 7.3 g/dL (6.3-8.2)
[2021-05-11 23:49] LABS: INR 0.9 (<1.2); Partial Thromboplastin Time 23.6 sec (22.0-30.0); Prothrombin Time 10.1 sec (9.0-12.0)
[2021-05-12 00:23] VITALS: RESP 18
--- NOTE | 2021-05-12 02:09 | ED ---
Chest Pain HPI - General Chief Complaint: Chest Pain Stated Complaint: Chest pain, SOB Time Seen by Provider: 05/11/21 23:05 Source: patient Mode of arrival: ambulatory Limitations: no limitations - History of Present Illness Initial Comments: This patient is a 60-year-old woman with history of COPD, CHF, who presents with complaint of a sided chest pain and shortness of breath. The patient states that the symptoms really began 10 days ago and have been intermittent. She indicates the left upper chest and states she'll get some dull pains that come and go. She states they last about a minute a time. Today she also felt a little short of breath and therefore presents to be evaluated. She denies any other associated symptoms. No fever or chills, cough, diaphoresis, palpitations or syncope. MD Complaint: chest pain Onset/Timin -: days(s) Onset: during rest Pain Location: left chest Pain Radiation: none Severity: mild Quality: dull Consistency: intermittent Improves With: nothing Worsens With: nothing Treatments Prior to Arrival: none - Related Data Home Medications Medication Instructions Recorded Confirmed Loratadine [Claritin] 10 mg PO HS PRN 06/09/15 11/07/20 Budesonide-Formot 160-4.5 Mcg 2 puff INHALATION RT-BID 03/17/16 11/07/20 [Symbicort 160-4.5 Mcg Inhaler] Albuterol Sulfate [Proair Hfa] 1 - 2 puff INHALATION RT-Q6H PRN 08/10/18 11/07/20 EPINEPHrine (Auto Inject) [Epipen] 0.3 mg IM ONCE PRN 04/19/20 11/07/20 Insulin Glargine,Hum.rec.anlog 40 unit SQ HS 04/19/20 11/07/20 [Lantus Solostar Pen] Losartan [Cozaar] 50 mg PO BID 04/19/20 11/07/20 Sennosides/Docusate Sodium [Senna 1 tab PO BID PRN 04/19/20 11/07/20 Plus 8.6-50 mg Tablet] metFORMIN HCL [Glucophage] 1,000 mg PO BID 04/19/20 11/07/20 Diltiazem HCl [Cartia Xt] 300 mg PO DAILY 07/14/20 11/07/20 INSULIN ASPART (NovoLOG) [NovoLOG 8 unit SQ AC-TID 07/14/20 11/07/20 (formulary)] rOPINIRole HCL [Requip] 4 mg PO HS 07/14/20 11/07/20 Atorvastatin Calcium [Lipitor] 40 mg PO HS 08/25/20 11/07/20 Hydrophilic Cream [Triad Cream] 1 applic TOPICAL BID 11/07/20 11/07/20 Previous Rx's Medication Instructions Recorded Ticagrelor [Brilinta] 90 mg PO BID #60 tab 08/12/18 Aspirin 81 mg PO DAILY 30 Days #30 chew 05/02/20 Allergies Allergy/AdvReac Type Severity Reaction Status Date / Time amlodipine Allergy Headache Verified 05/11/21 22:57 ammonia Allergy Unknown Verified 05/11/21 22:57 atenolol Allergy Dyspnea, Verified 05/11/21 22:57 Migraine barium sulfate Allergy Unknown Verified 05/11/21 22:57 cephalexin [From Keflex] Allergy Dyspnea Verified 05/11/21 22:57 diphenhydramine Allergy Hypertensio Verified 05/11/21 22:57 n dulaglutide [From Trulicity] Allergy Dyspnea Verified 05/11/21 22:57 exenatide [From Byetta] Allergy Unknown Verified 05/11/21 22:57 feathers Allergy Anaphylaxis Verified 05/11/21 22:57 fexofenadine HCl Allergy Muscle Pain Verified 05/11/21 22:57 [From Elena] fluoxetine Allergy "Feeling Verified 05/11/21 22:57 Irritable" fluvastatin Allergy Muscle Pain Verified 05/11/21 22:57 guaifenesin Allergy Unknown Verified 05/11/21 22:57 hydrochlorothiazide Allergy Tachycardia Verified 05/11/21 22:57 influenza virus vaccine, Allergy Unknown Verified 05/11/21 22:57 specific isosorbide [From Imdur] Allergy Migraine Verified 05/11/21 22:57 lisinopril Allergy Fatigue, Verified 05/11/21 22:57 Cough meperidine [From Demerol] Allergy Hives, Verified 05/11/21 22:57 Rash, Hypotension meperidine HCl [From Demerol] Allergy Anaphylaxis Verified 05/11/21 22:57 mint Allergy Unknown Verified 05/11/21 22:57 modafinil Allergy Headache Verified 05/11/21 22:57 mold Allergy Unknown Verified 05/11/21 22:57 nifedipine [From Procardia] Allergy Unknown Verified 05/11/21 22:57 nitroglycerin Allergy Dizziness Verified 05/11/21 22:57 ondansetron [From Zofran] Allergy Nausea Verified 05/11/21 22:57 paroxetine [From Paxil] Allergy "Depression Verified 05/11/21 22:57 " paroxetine HCl [From Paxil] Allergy "Depressed" Verified 05/11/21 22:57 pneumococcal vaccine Allergy Unknown Verified 05/11/21 22:57 sertraline HCl [From Zoloft] Allergy Fatigue Verified 05/11/21 22:57 simvastatin [From Zocor] Allergy Swelling Verified 05/11/21 22:57 Jumqdhb-LFO-EzP Reductase Allergy Unknown Verified 05/11/21 22:57 Inhibitor [Qsrepjm-Vfx-Jpm Reductase Inhibitor] sumatriptan Allergy Palpitation Verified 05/11/21 22:57 s venlafaxine [From Effexor] Allergy Tachycardia Verified 05/11/21 22:57 venom-honey bee Allergy Anaphylaxis Verified 05/11/21 22:57 [bee venom (honey bee)] wool Allergy Unknown Verified 05/11/21 22:57 zolpidem [From Ambien] Allergy Dyspnea, Verified 05/11/21 22:57 Migraine zolpidem tartrate Allergy Dyspnea, Verified 05/11/21 22:57 [From Ambien] Migraine fexofenadine [From Elena] AdvReac Migraine Verified 05/11/21 22:57 hay Allergy Dyspnea Uncoded 05/11/21 22:57 lysol Allergy Dyspnea Uncoded 05/11/21 22:57 Review of Systems ROS Statement: Those systems with pertinent positive or pertinent negative responses have been documented in the HPI. ROS Other: All systems not noted in ROS Statement are negative. Constitutional: Denies: fever, chills Respiratory: Reports: as per HPI, dyspnea. Denies: cough Cardiovascular: Reports: chest pain. Denies: palpitations, dyspnea on exertion, orthopnea, edema, syncope Gastrointestinal: Denies: abdominal pain, vomiting, diarrhea Genitourinary: Denies: dysuria, hematuria Musculoskeletal: Denies: back pain Skin: Denies: rash Neurological: Denies: headache, weakness EKG Findings - EKG Results: EKG: sinus rhythm (Rate 82 bpm) - Blocks, Menard, Hypertrophy, ST Abn: AV and intraventricular conduction: right bundle branch block (fixed/intermittent, complete/incomplete) QRS axis and voltage: left axis deviation (-30 to -90) Chamber hypertrophy or enlargement: only voltage criteria for left ventricular hypertrophy Past Medical History Past Medical History: Asthma, COPD, CVA/TIA, Diabetes Mellitus, GERD/Reflux, Hearing Disorder / Deafness, Hyperlipidemia, Hypertension, Seizure Disorder, Sleep Apnea/CPAP/BIPAP, Thyroid Disorder Additional Past Medical History / Comment(s): additional hx: right bundle branch block,barretts esophagus, migraines, deanna hearing aids, lung nodules, fatty liver, pulmonary hypertension, heart murmur,obesity, IBS, RLS, arthritis, ADHD, DJD, anemia, lactose intolerance; last seizure 21 years ago, kidney stones x2 History of Any Multi-Drug Resistant Organisms: None Reported Past Surgical History: Bowel Resection, Cholecystectomy, Hysterectomy Additional Past Surgical History / Comment(s): breast biopsy,esophageal surgery - 2002, Colostomy Apr 2020, colostomy reversed october 2020 Past Anesthesia/Blood Transfusion Reactions: No Reported Reaction Additional Past Anesthesia/Blood Transfusion Reaction / Comment(s): gets nauseous at times. Past Psychological History: Anxiety, Depression Smoking Status: Never smoker Past Alcohol Use History: None Reported Past Drug Use History: None Reported - Past Family History Mother History Unknown: Yes Family Medical History: Congestive Heart Failure (CHF), Myocardial Infarction ([place]) Additional Family Medical History / Comment(s): 77 Father History Unknown: Yes Family Medical History: COPD, Myocardial Infarction ([place]) Additional Family Medical History / Comment(s): at 56 Sister(s) History Unknown: Yes Family Medical History: Myocardial Infarction ([place]) Additional Family Medical History / Comment(s): at 56 Brother(s) Family Medical History: Cancer Additional Family Medical History / Comment(s): colon cancer General Exam Limitations: no limitations General appearance: alert, in no apparent distress Head exam: Present: atraumatic, normocephalic Eye exam: Present: normal appearance. Absent: scleral icterus, conjunctival injection Neck exam: Present: normal inspection Respiratory exam: Absent: respiratory distress, wheezes, rales (Trace crackles at the bases bilaterally), rhonchi, stridor, chest wall tenderness, accessory m uscle use Cardiovascular Exam: Present: regular rate, normal rhythm, normal heart sounds. Absent: systolic murmur, diastolic murmur, rubs, gallop GI/Abdominal exam: Present: soft. Absent: distended, tenderness, guarding, rebound, rigid Extremities exam: Present: normal inspection, normal capillary refill. Absent: pedal edema, calf tenderness Back exam: Present: normal inspection. Absent: CVA tenderness (R), CVA tenderness (L) Neurological exam: Present: alert Skin exam: Present: warm, dry, intact, normal color. Absent: rash Course Vital Signs 05/11/21 05/12/21 05/12/21 22:57 00:22 02:28 Temperature 98.1 F Pulse Rate 86 87 84 Respiratory 22 18 18 Rate Blood Pressure 178/82 141/92 145/87 O2 Sat by Pulse 97 95 96 Oximetry Chest Pain [facility] Patient is 60-year-old woman here for intermittent chest pains and some mild dyspnea. Her initial workup is nondiagnostic for cause, suspect there is some mild underlying CHF and COPD contributing. I recommended that the patient stay to have serial cardiac enzymes, telemetry monitoring, but the patient is refusing. She states that she does basically feel well and was just checking here as a precaution. She states that she does have follow-up with the [facility] and she will follow there. Disposition Clinical Impression: Chest pain Disposition: HOME SELF-CARE Condition: Good Instructions (If sedation given, give patient instructions): Chest Pain (ED) Is patient prescribed a controlled substance at d/c from ED?: No Referrals: [facility],Clinic [Primary Care Provider] - 1-2 days
[2021-05-12 02:29] VITALS: BP 145/87; PULSE 84
== END 2021-05-12 02:29 | disposition home or self-care (01) ==
LOC: SUPCPDRO 22:54 → EC 22:54
DX: R07.9 Chest pain, unspecified (principal); I10 Essential (primary) hypertension; Z86.73 Personal history of transient ischemic attack (TIA), and cerebral infarction without residual deficits; E11.9 Type 2 diabetes mellitus without complications; Z79.4 Long term (current) use of insulin; J45.909 Unspecified asthma, uncomplicated; Z88.8 Allergy status to other drugs, medicaments and biological substances; Z91.041 Radiographic dye allergy status; Z88.1 Allergy status to other antibiotic agents; Z88.2 Allergy status to sulfonamides; Z91.048 Other nonmedicinal substance allergy status; Z88.7 Allergy status to serum and vaccine; Z88.6 Allergy status to analgesic agent; Z88.5 Allergy status to narcotic agent; Z91.018 Allergy to other foods
CPT/HCPCS: 36415; 71046; 80053; 83735; 83880; 84484; 85025; 85379; 85610; 85730; 93005; 99285

== ENCOUNTER 2021-07-14 09:48 | Emergency (ER) | payer OTHER ==
--- NOTE | 2021-07-14 10:24 | ED ---
SOB HPI - General Chief Complaint: Shortness of Breath Stated Complaint: SOB/Cough Time Seen by Provider: 07/14/21 09:54 Source: patient, RN notes reviewed Mode of arrival: ambulatory Limitations: no limitations - History of Present Illness Initial Comments: This a 60-year-old female presents emergency Department with chief complaint cough congestion times one week. Patient is just productive cough with yellow sputum. Patient's age does have underlying lung disease including COPD, asthma. Patient denies any chest pain, leg swelling or recent weight gain. Patient states that she wanted to wait daily secondary to congestive heart failure. She states that she has increased nasal congestion, postnasal drainage. Patient denies any fever as a body aches. Denies any sick contacts. - Related Data Home Medications Medication Instructions Recorded Confirmed Loratadine [Claritin] 10 mg PO HS PRN 06/09/15 11/07/20 Budesonide-Formot 160-4.5 Mcg 2 puff INHALATION RT-BID 03/17/16 11/07/20 [Symbicort 160-4.5 Mcg Inhaler] Albuterol Sulfate [Proair Hfa] 1 - 2 puff INHALATION RT-Q6H PRN 08/10/18 11/07/20 EPINEPHrine (Auto Inject) [Epipen] 0.3 mg IM ONCE PRN 04/19/20 11/07/20 Insulin Glargine,Hum.rec.anlog 40 unit SQ HS 04/19/20 11/07/20 [Lantus Solostar Pen] Losartan [Cozaar] 50 mg PO BID 04/19/20 11/07/20 Sennosides/Docusate Sodium [Senna 1 tab PO BID PRN 04/19/20 11/07/20 Plus 8.6-50 mg Tablet] metFORMIN HCL [Glucophage] 1,000 mg PO BID 04/19/20 11/07/20 Diltiazem HCl [Cartia Xt] 300 mg PO DAILY 07/14/20 11/07/20 INSULIN ASPART (NovoLOG) [NovoLOG 8 unit SQ AC-TID 07/14/20 11/07/20 (formulary)] rOPINIRole HCL [Requip] 4 mg PO HS 07/14/20 11/07/20 Atorvastatin Calcium [Lipitor] 40 mg PO HS 08/25/20 11/07/20 Hydrophilic Cream [Triad Cream] 1 applic TOPICAL BID 11/07/20 11/07/20 Previous Rx's Medication Instructions Recorded Ticagrelor [Brilinta] 90 mg PO BID #60 tab 08/12/18 Aspirin 81 mg PO DAILY 30 Days #30 chew 05/02/20 Allergies Allergy/AdvReac Type Severity Reaction Status Date / Time amlodipine Allergy Headache Verified 07/14/21 09:52 ammonia Allergy Unknown Verified 07/14/21 09:52 atenolol Allergy Dyspnea, Verified 07/14/21 09:52 Migraine barium sulfate Allergy Unknown Verified 07/14/21 09:52 cephalexin [From Keflex] Allergy Dyspnea Verified 07/14/21 09:52 diphenhydramine Allergy Hypertensio Verified 07/14/21 09:52 n dulaglutide [From Trulicity] Allergy Dyspnea Verified 07/14/21 09:52 exenatide [From Byetta] Allergy Unknown Verified 07/14/21 09:52 feathers Allergy Anaphylaxis Verified 07/14/21 09:52 fexofenadine HCl Allergy Muscle Pain Verified 07/14/21 09:52 [From Elena] fluoxetine Allergy "Feeling Verified 07/14/21 09:52 Irritable" fluvastatin Allergy Muscle Pain Verified 07/14/21 09:52 guaifenesin Allergy Unknown Verified 07/14/21 09:52 hydrochlorothiazide Allergy Tachycardia Verified 07/14/21 09:52 influenza virus vaccine, Allergy Unknown Verified 07/14/21 09:52 specific isosorbide [From Imdur] Allergy Migraine Verified 07/14/21 09:52 lisinopril Allergy Fatigue, Verified 07/14/21 09:52 Cough meperidine [From Demerol] Allergy Hives, Verified 07/14/21 09:52 Rash, Hypotension meperidine HCl [From Demerol] Allergy Anaphylaxis Verified 07/14/21 09:52 mint Allergy Unknown Verified 07/14/21 09:52 modafinil Allergy Headache Verified 07/14/21 09:52 mold Allergy Unknown Verified 07/14/21 09:52 nifedipine [From Procardia] Allergy Unknown Verified 07/14/21 09:52 nitroglycerin Allergy Dizziness Verified 07/14/21 09:52 ondansetron [From Zofran] Allergy Nausea Verified 07/14/21 09:52 paroxetine [From Paxil] Allergy "Depression Verified 07/14/21 09:52 " paroxetine HCl [From Paxil] Allergy "Depressed" Verified 07/14/21 09:52 pneumococcal vaccine Allergy Unknown Verified 07/14/21 09:52 sertraline HCl [From Zoloft] Allergy Fatigue Verified 07/14/21 09:52 simvastatin [From Zocor] Allergy Swelling Verified 07/14/21 09:52 Jrkgaty-RPQ-ZvL Reductase Allergy Unknown Verified 07/14/21 09:52 Inhibitor [Lnsntyu-Afe-Ynm Reductase Inhibitor] sumatriptan Allergy Palpitation Verified 07/14/21 09:52 s venlafaxine [From Effexor] Allergy Tachycardia Verified 07/14/21 09:52 venom-honey bee Allergy Anaphylaxis Verified 07/14/21 09:52 [bee venom (honey bee)] wool Allergy Unknown Verified 07/14/21 09:52 zolpidem [From Ambien] Allergy Dyspnea, Verified 07/14/21 09:52 Migraine zolpidem tartrate Allergy Dyspnea, Verified 07/14/21 09:52 [From Ambien] Migraine fexofenadine [From Elena] AdvReac Migraine Verified 07/14/21 09:52 hay Allergy Dyspnea Uncoded 07/14/21 09:52 lysol Allergy Dyspnea Uncoded 07/14/21 09:52 Review of Systems ROS Statement: Those systems with pertinent positive or pertinent negative responses have been documented in the HPI. ROS Other: All systems not noted in ROS Statement are negative. Past Medical History Past Medical History: Asthma, COPD, CVA/TIA, Diabetes Mellitus, GERD/Reflux, Hearing Disorder / Deafness, Hyperlipidemia, Hypertension, Seizure Disorder, Sleep Apnea/CPAP/BIPAP, Thyroid Disorder Additional Past Medical History / Comment(s): additional hx: right bundle branch block,barretts esophagus, migraines, deanna hearing aids, lung nodules, fatty liver, pulmonary hypertension, heart murmur,obesity, IBS, RLS, arthritis, ADHD, DJD, anemia, lactose intolerance; last seizure 21 years ago, kidney stones x2 History of Any Multi-Drug Resistant Organisms: None Reported Past Surgical History: Bowel Resection, Cholecystectomy, Hysterectomy Additional Past Surgical History / Comment(s): breast biopsy,esophageal surgery - 2002, Colostomy Apr 2020, colostomy reversed october 2020 Past Anesthesia/Blood Transfusion Reactions: No Reported Reaction Additional Past Anesthesia/Blood Transfusion Reaction / Comment(s): gets nauseous at times. Past Psychological History: Anxiety, Depression Smoking Status: Never smoker Past Alcohol Use History: None Reported Past Drug Use History: None Reported - Past Family History Mother History Unknown: Yes Family Medical History: Congestive Heart Failure (CHF), Myocardial Infarction ([place]) Additional Family Medical History / Comment(s): 77 Father History Unknown: Yes Family Medical History: COPD, Myocardial Infarction ([place]) Additional Family Medical History / Comment(s): at 56 Sister(s) History Unknown: Yes Family Medical History: Myocardial Infarction ([place]) Additional Family Medical History / Comment(s): at 56 Brother(s) Family Medical History: Cancer Additional Family Medical History / Comment(s): colon cancer General Exam Limitations: no limitations General appearance: alert, in no apparent distress Head exam: Present: atraumatic, normocephalic, normal inspection Eye exam: Present: normal appearance, PERRL, EOMI. Absent: scleral icterus, conjunctival injection, periorbital swelling ENT exam: Present: normal exam, normal oropharynx, mucous membranes moist Neck exam: Present: normal inspection, full ROM. Absent: tenderness, meningismus, lymphadenopathy Respiratory exam: Present: decreased breath sounds. Absent: normal lung sounds bilaterally, respiratory distress, wheezes, rales, rhonchi, stridor Cardiovascular Exam: Present: regular rate, normal rhythm, normal heart sounds. Absent: systolic murmur, diastolic murmur, rubs, gallop, clicks GI/Abdominal exam: Present: soft, normal bowel sounds. Absent: distended, tenderness, guarding, rebound, rigid Extremities exam: Absent: pedal edema Skin exam: Present: warm, dry, intact, normal color. Absent: rash Course Vital Signs 07/14/21 07/14/21 07/14/21 09:49 10:13 10:52 Temperature 97.4 F L Pulse Rate 79 Respiratory 24 20 Rate Blood Pressure 169/76 O2 Sat by Pulse 98 97 Oximetry Medical Decision Making - Medical Decision Making 60-year-old female presents emergency Department for cough congestion. Symptoms are present for over a week. Patient's chest x-ray is consistent with Covid 19, patient is positive for COVID-19. Patient will be discharged in stable condition return parameters were discussed. - Lab Data Lab Results 07/14/21 07/14/21 Range/Units 10:20 10:20 Coronavirus (PCR) Detected A (Not Detectd) Influenza Type A RNA Not Detected (Not Detectd) Influenza Type B (PCR) Not Detected (Not Detectd) Disposition Clinical Impression: COVID-19 Disposition: HOME SELF-CARE Condition: Stable Instructions (If sedation given, give patient instructions): COVID-19 (Coronavirus Disease 2019) (ED) Additional Instructions: Please return to the Emergency Department if symptoms worsen or any other concerns. Is patient prescribed a controlled substance at d/c from ED?: No Referrals: Nonstaff,Physician [REFERRING] - 1-2 days Time of Disposition: 11:31
--- NOTE | 2021-07-14 11:12 | XR ---
EXAMINATION TYPE: XR chest 2V DATE OF EXAM: 07/14/2021 COMPARISON: Chest X-Ray May 11 2021 and older studies. CTA chest April 2020 HISTORY: Cough and shortness of breath for one week. TECHNIQUE: Frontal and lateral views of the chest are obtained. FINDINGS: Persistent cardiomegaly. Persistent increased alveolar and interstitial opacities bilateral ly. No pleural effusion or pneumothorax is seen bilaterally. Metallic screw fragment right humeral he ad is noted. IMPRESSION: Favors CHF exacerbation as there is cardiomegaly with [id number] bilateral alveola r and interstitial edema felt present. Correlate clinically.
[2021-07-14 11:47] VITALS: BP 128/67; PULSE 73; RESP 18; TEMP 98.9
== END 2021-07-14 11:46 | disposition home or self-care (01) ==
LOC: EC 09:48
DX: Z88.8 Allergy status to other drugs, medicaments and biological substances (principal); U07.1 COVID-19; E11.9 Type 2 diabetes mellitus without complications; J45.909 Unspecified asthma, uncomplicated; I10 Essential (primary) hypertension; Z82.49 Family history of ischemic heart disease and other diseases of the circulatory system; Z91.041 Radiographic dye allergy status; Z88.2 Allergy status to sulfonamides; Z88.9 Allergy status to unspecified drugs, medicaments and biological substances; Z88.6 Allergy status to analgesic agent; Z88.7 Allergy status to serum and vaccine
CPT/HCPCS: 71046; 87502; 87635; 93005; 99285

== ENCOUNTER 2021-07-30 09:36 | Emergency (ER) | payer OTHER, MEDICARE ==
[2021-07-30 11:08] LABS: Anisocytosis Slight; Basophils % (A) 0 %; Eosinophils # (A) 0.2 k/uL (0-0.7); Eosinophils % (A) 2 %; HCT 32.2 % (34.0-46.0); HGB 9.8 gm/dL (11.4-16.0); Hypochromasia Moderate; Lymphocytes # (A) 1.7 k/uL (1.0-4.8); Lymphocytes % (A) 15 %; MCH 22.2 pg (25.0-35.0); MCHC 30.3 g/dL (31.0-37.0); MCV 73.5 fL (80.0-100.0); Mean Platelet Volume 6.8; Microcytosis Moderate; Monocytes # (A) 0.4 k/uL (0-1.0); Monocytes % (A) 4 %; Neutrophils # (A) 8.9 k/uL (1.3-7.7); Neutrophils % (A) 78 %; Platelet Count 284 k/uL (150-450); RBC 4.38 m/uL (3.80-5.40); WBC 11.4 k/uL (3.8-10.6)
--- NOTE | 2021-07-30 11:27 | XR ---
EXAMINATION TYPE: XR chest 2V DATE OF EXAM: 07/30/2021 COMPARISON: 07/17/2021 TECHNIQUE: PA and lateral views submitted. HISTORY: Shortness of breath FINDINGS: Bilateral patchy perihilar interstitial changes are seen. Heart is prominent. Areas of consolidation the right lung are slightly improved. No pleural effusion or pneumothorax. Heart is enlarged. Postsur gical change right shoulder and diffuse osteopenia. Atherosclerotic change of the aorta. IMPRESSION: 1. Improving right perihilar infiltrate correlate for COPD, cardiomegaly and chronic interstitial cecil g disease or interstitial pneumonitis.
[2021-07-30 11:28] LABS: INR 0.9 (<1.2); Partial Thromboplastin Time 21.8 sec (22.0-30.0)
[2021-07-30 11:34] LABS: ALT 20 U/L (4-34); AST 22 U/L (14-36); African American GFR (CKD) >90 (>60 ml/min/1.73 sqM); Albumin 3.3 g/dL (3.5-5.0); Alkaline Phosphatase 95 U/L (38-126); Anion Gap 10 mmol/L; Blood Urea Nitrogen 15 mg/dL (7-17); Calcium 8.6 mg/dL (8.4-10.2); Carbon Dioxide 22 mmol/L (22-30); Chloride 100 mmol/L (98-107); Glucose 298 mg/dL (74-99); Magnesium 1.5 mg/dL (1.6-2.3); Non-African American GFR(CKD) >90 (>60 ml/min/1.73 sqM); Potassium 4.3 mmol/L (3.5-5.1); Sodium 132 mmol/L (137-145); Total Bilirubin 0.5 mg/dL (0.2-1.3); Total Protein 6.1 g/dL (6.3-8.2)
[2021-07-30] MEDS ORDERED: MAGNESIUM SULFATE-D5W PMX 1 GM in DEXTROSE/WATER 1 100ML.BAG IVPB ONE (11:54)
[2021-07-30] MEDS ORDERED: DEXAMETHASONE SOD PHOSPHATE 10 MG/ML 1 ML VIAL IVP STA (12:41)
[2021-07-30] MEDS ORDERED: INSULIN ASPART (NovoLOG) 100 UNIT/ML VIAL SQ ONE (12:41)
--- NOTE | 2021-07-30 12:45 | ED ---
General Adult HPI - General Chief complaint: Shortness of Breath Stated complaint: MARTHA Time Seen by Provider: 07/30/21 10:25 Source: patient, RN notes reviewed Mode of arrival: wheelchair Limitations: no limitations - History of Present Illness Initial comments: 60-year-old female presents emergency from chief complaint shortness of breath. Patient states that she had hospitalization 10 days ago for COVID-19. She had some underlying pneumonia that time she was admitted for 2 days discharge on oral antibiotics and steroids states when she stepped steroids she started having increasing shortness of breath. Denies any chest pain denies any significant leg swelling on the usual she does have history of congestive heart there no recent weight gain. She is nonproductive cough. Denies any recent fevers or chills she does admit to some mild sinus congestion which is been ongoing. - Related Data Home Medications Medication Instructions Recorded Confirmed Loratadine [Claritin] 10 mg PO DAILY 06/09/15 07/30/21 EPINEPHrine (Auto Inject) [Epipen] 0.3 mg IM ONCE PRN 04/19/20 07/30/21 Insulin Glargine,Hum.rec.anlog 35 unit SQ HS 04/19/20 07/30/21 [Lantus Solostar Pen] Losartan [Cozaar] 50 mg PO BID 04/19/20 07/30/21 Sennosides/Docusate Sodium [Senna 1 tab PO BID 04/19/20 07/30/21 Plus 8.6-50 mg Tablet] Diltiazem HCl [Cartia Xt] 300 mg PO DAILY 07/14/20 07/30/21 Fluticasone Propion/Salmeterol 1 puff INHALATION RT-BID 07/14/21 07/30/21 [Wixela 250-50 Inhub] Insulin Aspart [NovoLOG Flexpen] 30 units SQ TID 07/14/21 07/30/21 Nystatin [Nystop] 1 applic TOPICAL DAILY PRN 07/14/21 07/30/21 Atorvastatin [Lipitor] 40 mg PO HS 07/30/21 07/30/21 Cholecalciferol [Vitamin D3 (25 50 mcg PO DAILY 07/30/21 07/30/21 Mcg = 1000 Iu)] Echinacea 400 mg PO DAILY 07/30/21 07/30/21 Ibuprofen/Pseudoephedrine HCl 1 tab PO Q4H PRN 07/30/21 07/30/21 [Advil Cold & Sinus Caplet] Power C Gummy 3 tab PO DAILY 07/30/21 07/30/21 Zinc 50 mg PO DAILY 07/30/21 07/30/21 metFORMIN HCL [Glucophage] 1,000 mg PO BID 07/30/21 07/30/21 rOPINIRole HCL [Requip] 4 mg PO HS 07/30/21 07/30/21 Previous Rx's Medication Instructions Recorded Ticagrelor [Brilinta] 90 mg PO BID #60 tab 08/12/18 Aspirin 81 mg PO DAILY 30 Days #30 chew 05/02/20 Albuterol Inhaler [Ventolin Hfa 2 puff INHALATION RT-QID PRN gm 07/19/21 Inhaler] Azithromycin [Zithromax Z-pack (6 0 mg PO DIRECTED #1 packet 07/30/21 tabs)] Dexamethasone [Decadron] 6 mg PO DAILY #5 tablet 07/30/21 Allergies Allergy/AdvReac Type Severity Reaction Status Date / Time ammonia Allergy Dyspnea & Verified 07/30/21 12:20 Passed Out atenolol Allergy Dyspnea, Verified 07/30/21 12:20 Migraine cephalexin [From Keflex] Allergy Dyspnea Verified 07/30/21 12:20 diphtheria,pertussis Allergy Dyspnea & Verified 07/30/21 12:20 (acellular),te Heart [From Boostrix Tdap] Palpitations & Nausea dulaglutide [From Trulicity] Allergy Dyspnea Verified 07/30/21 12:20 exenatide [From Byetta] Allergy Unknown Verified 07/30/21 12:20 feathers Allergy Anaphylaxis Verified 07/30/21 12:20 guaifenesin Allergy Dyspnea Verified 07/30/21 12:20 influenza virus vaccine, Allergy Dyspnea & Verified 07/30/21 12:20 specific Heart Palpitations & Nausea meperidine [From Demerol] Allergy Hives, Verified 07/30/21 12:20 Rash, Hypotension meperidine HCl [From Demerol] Allergy Anaphylaxis Verified 07/30/21 12:20 mint Allergy Anaphylaxis Verified 07/30/21 12:20 mold Allergy Anaphylaxis Verified 07/30/21 12:20 nifedipine [From Procardia] Allergy Unknown Verified 07/30/21 12:20 pneumococcal vaccine Allergy Dyspnea & Verified 07/30/21 12:20 Heart Palpitations & Nausea simvastatin [From Zocor] Allergy Muscle/Joint Verified 07/30/21 12:20 Pain venom-honey bee Allergy Anaphylaxis Verified 07/30/21 12:20 [bee venom (honey bee)] wool Allergy Anaphylaxis Verified 07/30/21 12:20 zolpidem [From Ambien] Allergy Dyspnea, Verified 07/30/21 12:20 Migraine zolpidem tartrate Allergy Dyspnea, Verified 07/30/21 12:20 [From Ambien] Migraine zoster vaccine live Allergy Dyspnea & Verified 07/30/21 12:20 Heart Palpitations & Nausea amlodipine AdvReac Headache Verified 07/30/21 12:20 barium sulfate AdvReac rectal Verified 07/30/21 12:20 bleeding diphenhydramine AdvReac Hypertensio Verified 07/30/21 12:20 n fexofenadine [From Elena] AdvReac Migraine Verified 07/30/21 12:20 fexofenadine HCl AdvReac Muscle Pain Verified 07/30/21 12:20 [From Elena] fluoxetine AdvReac "Feeling Verified 07/30/21 12:20 Irritable" fluvastatin AdvReac Muscle Pain Verified 07/30/21 12:20 hydrochlorothiazide AdvReac Tachycardia Verified 07/30/21 12:20 isosorbide [From Imdur] AdvReac Migraine Verified 07/30/21 12:20 lisinopril AdvReac Fatigue, Verified 07/30/21 12:20 Cough modafinil AdvReac Headache Verified 07/30/21 12:20 nitroglycerin AdvReac Dizziness Verified 07/30/21 12:20 ondansetron [From Zofran] AdvReac Nausea Verified 07/30/21 12:20 paroxetine [From Paxil] AdvReac "Depression Verified 07/30/21 12:20 " paroxetine HCl [From Paxil] AdvReac "Depressed" Verified 07/30/21 12:20 sertraline HCl [From Zoloft] AdvReac Fatigue Verified 07/30/21 12:20 Mzsttyy-VBI-BvC Reductase AdvReac Muscle/Joint Verified 07/30/21 12:20 Inhibitor Pain [Bcaycfw-Zlb-Ndd Reductase Inhibitor] sumatriptan AdvReac Palpitation Verified 07/30/21 12:20 s venlafaxine [From Effexor] AdvReac Tachycardia Verified 07/30/21 12:20 hay Allergy Dyspnea Uncoded 07/30/21 09:43 lysol Allergy Dyspnea Uncoded 07/30/21 09:43 Review of Systems ROS Statement: Those systems with pertinent positive or pertinent negative responses have been documented in the HPI. ROS Other: All systems not noted in ROS Statement are negative. Past Medical History Past Medical History: Asthma, COPD, CVA/TIA, Diabetes Mellitus, GERD/Reflux, Hearing Disorder / Deafness, Hyperlipidemia, Hypertension, Seizure Disorder, Sleep Apnea/CPAP/BIPAP, Thyroid Disorder Additional Past Medical History / Comment(s): additional hx: right bundle branch block,barretts esophagus, migraines, deanna hearing aids, lung nodules, fatty liver, pulmonary hypertension, heart murmur,obesity, IBS, RLS, arthritis, ADHD, DJD, anemia, lactose intolerance; last seizure 21 years ago, kidney stones x2, covid 07/08 History of Any Multi-Drug Resistant Organisms: None Reported Date of last positivie culture/infection: November 2020 MDRO Source:: Abdomen Past Surgical History: Bowel Resection, Cholecystectomy, Hysterectomy Additional Past Surgical History / Comment(s): breast biopsy,esophageal surgery - 2002, Colostomy Apr 2020, colostomy reversed october 2020 Past Anesthesia/Blood Transfusion Reactions: No Reported Reaction Additional Past Anesthesia/Blood Transfusion Reaction / Comment(s): gets nauseous at times. Past Psychological History: Anxiety, Depression Smoking Status: Never smoker Past Alcohol Use History: None Reported Past Drug Use History: None Reported - Past Family History Mother History Unknown: Yes Family Medical History: Congestive Heart Failure (CHF), Myocardial Infarction ([place]) Additional Family Medical History / Comment(s): 77 Father History Unknown: Yes Family Medical History: COPD, Myocardial Infarction ([place]) Additional Family Medical History / Comment(s): at 56 Sister(s) History Unknown: Yes Family Medical History: Myocardial Infarction ([place]) Additional Family Medical History / Comment(s): at 56 Brother(s) Family Medical History: Cancer Additional Family Medical History / Comment(s): colon cancer General Exam Limitations: no limitations General appearance: alert, in no apparent distress Head exam: Present: atraumatic, normocephalic, normal inspection Eye exam: Present: normal appearance, PERRL, EOMI. Absent: scleral icterus, conjunctival injection, periorbital swelling ENT exam: Present: normal exam, normal oropharynx, mucous membranes moist Neck exam: Present: normal inspection, full ROM. Absent: tenderness, meningismus, lymphadenopathy Respiratory exam: Present: normal lung sounds bilaterally. Absent: respiratory distress, wheezes, rales, rhonchi, stridor Cardiovascular Exam: Present: regular rate, normal rhythm, normal heart sounds. Absent: systolic murmur, diastolic murmur, rubs, gallop, clicks GI/Abdominal exam: Present: soft, normal bowel sounds. Absent: distended, tenderness, guarding, rebound, rigid Course Vital Signs 07/30/21 07/30/21 09:38 10:28 Temperature 97.5 F L Pulse Rate 83 Respiratory 26 H 20 Rate Blood Pressure 165/83 O2 Sat by Pulse 97 Oximetry Medical Decision Making - Medical Decision Making Patient had no hypoxia upon ambulation. Chest x-ray shows improving or near resolved infiltrate. Patient most likely is a COVID-19) inflammatory symptoms from recent COVID-19. Patient continued breathing treatments, inhalers, steroids at home she is to follow-up with pulmonology and return for any worsening or changing symptoms. - Lab Data Result diagrams: 07/30/21 10:41 07/30/21 10:41 Lab Results 07/30/21 07/30/21 07/30/21 Range/Units 10:41 10:41 10:41 WBC 11.4 H (3.8-10.6) k/uL RBC 4.38 (3.80-5.40) m/uL Hgb 9.8 L (11.4-16.0) gm/dL Hct 32.2 L (34.0-46.0) % MCV 73.5 L (80.0-100.0) fL MCH 22.2 L (25.0-35.0) pg MCHC 30.3 L (31.0-37.0) g/dL RDW 18.0 H (11.5-15.5) % Plt Count 284 (150-450) k/uL MPV 6.8 Neutrophils % 78 % Lymphocytes % 15 % Monocytes % 4 % Eosinophils % 2 % Basophils % 0 % Neutrophils # 8.9 H (1.3-7.7) k/uL Lymphocytes # 1.7 (1.0-4.8) k/uL Monocytes # 0.4 (0-1.0) k/uL Eosinophils # 0.2 (0-0.7) k/uL Basophils # 0.0 (0-0.2) k/uL Hypochromasia Moderate Anisocytosis Slight Microcytosis Moderate PT 10.0 (9.0-12.0) sec INR 0.9 (<1.2) APTT 21.8 L (22.0-30.0) sec D-Dimer 0.31 (<0.60) mg/L FEU Sodium 132 L (137-145) mmol/L Potassium 4.3 (3.5-5.1) mmol/L Chloride 100 (98-107) mmol/L Carbon Dioxide 22 (22-30) mmol/L Anion Gap 10 mmol/L BUN 15 (7-17) mg/dL Creatinine 0.57 (0.52-1.04) mg/dL Est GFR (CKD-EPI)AfAm >90 (>60 ml/min/1.73 sqM) Est GFR (CKD-EPI)NonAf >90 (>60 ml/min/1.73 sqM) Glucose 298 H (74-99) mg/dL Plasma Lactic Acid Mitchell (0.7-2.0) mmol/L Calcium 8.6 (8.4-10.2) mg/dL Magnesium 1.5 L (1.6-2.3) mg/dL Total Bilirubin 0.5 (0.2-1.3) mg/dL AST 22 (14-36) U/L ALT 20 (4-34) U/L Alkaline Phosphatase 95 (38-126) U/L Troponin I (0.000-0.034) ng/mL NT-Pro-B Natriuret Pep pg/mL Total Protein 6.1 L (6.3-8.2) g/dL Albumin 3.3 L (3.5-5.0) g/dL 07/30/21 07/30/21 07/30/21 Range/Units 10:41 10:41 10:41 WBC (3.8-10.6) k/uL RBC (3.80-5.40) m/uL Hgb (11.4-16.0) gm/dL Hct (34.0-46.0) % MCV (80.0-100.0) fL MCH (25.0-35.0) pg MCHC (31.0-37.0) g/dL RDW (11.5-15.5) % Plt Count (150-450) k/uL MPV Neutrophils % % Lymphocytes % % Monocytes % % Eosinophils % % Basophils % % Neutrophils # (1.3-7.7) k/uL Lymphocytes # (1.0-4.8) k/uL Monocytes # (0-1.0) k/uL Eosinophils # (0-0.7) k/uL Basophils # (0-0.2) k/uL Hypochromasia Anisocytosis Microcytosis PT (9.0-12.0) sec INR (<1.2) APTT (22.0-30.0) sec D-Dimer (<0.60) mg/L FEU Sodium (137-145) mmol/L Potassium (3.5-5.1) mmol/L Chloride (98-107) mmol/L Carbon Dioxide (22-30) mmol/L Anion Gap mmol/L BUN (7-17) mg/dL Creatinine (0.52-1.04) mg/dL Est GFR (CKD-EPI)AfAm (>60 ml/min/1.73 sqM) Est GFR (CKD-EPI)NonAf (>60 ml/min/1.73 sqM) Glucose (74-99) mg/dL Plasma Lactic Acid Mitchell 3.0 H* (0.7-2.0) mmol/L Calcium (8.4-10.2) mg/dL Magnesium (1.6-2.3) mg/dL Total Bilirubin (0.2-1.3) mg/dL AST (14-36) U/L ALT (4-34) U/L Alkaline Phosphatase (38-126) U/L Troponin I 0.012 (0.000-0.034) ng/mL NT-Pro-B Natriuret Pep 155 pg/mL Total Protein (6.3-8.2) g/dL Albumin (3.5-5.0) g/dL Disposition Clinical Impression: COVID-19, Post-infection bronchospasm, Dyspnea Disposition: HOME SELF-CARE Condition: Stable Instructions (If sedation given, give patient instructions): How to Recover from COVID-19 at Home (ED) Additional Instructions: Please return to the Emergency Department if symptoms worsen or any other concerns. Prescriptions: Dexamethasone [Decadron] 6 mg PO DAILY #5 tablet Azithromycin [Zithromax Z-pack (6 tabs)] 0 mg PO DIRECTED #1 packet Is patient prescribed a controlled substance at d/c from ED?: No Referrals: León Martin MD [Primary Care Provider] - 1-2 days Time of Disposition: 12:45
[2021-07-30 13:21] LABS: Glucose,Whole Blood 301 mg/dL (75-99)
[2021-07-30 14:07] VITALS: BP 141/81; PULSE 78; RESP 12; TEMP 97.9
== END 2021-07-30 14:13 | disposition home or self-care (01) ==
LOC: EC 09:36
DX: U07.1 COVID-19 (principal); U09.9 Post COVID-19 condition, unspecified; R06.00 Dyspnea, unspecified; E11.9 Type 2 diabetes mellitus without complications; J44.9 Chronic obstructive pulmonary disease, unspecified; Z86.73 Personal history of transient ischemic attack (TIA), and cerebral infarction without residual deficits; Z88.9 Allergy status to unspecified drugs, medicaments and biological substances; Z88.8 Allergy status to other drugs, medicaments and biological substances; Z88.1 Allergy status to other antibiotic agents; Z88.2 Allergy status to sulfonamides; Z88.7 Allergy status to serum and vaccine; Z91.018 Allergy to other foods
CPT/HCPCS: 36415; 93005; 85379; 83880; 80053; 83605; 83735; 84484; 85025; 85610; 85730; 71046; 99285; 96365; 96375; J1100; J3475

== ENCOUNTER 2021-09-07 15:31 | Emergency (ER) | payer OTHER ==
--- NOTE | 2021-09-07 16:02 | ED ---
SOB HPI - General Chief Complaint: Shortness of Breath Stated Complaint: MARTHA Time Seen by Provider: 09/07/21 15:35 Source: patient Mode of arrival: ambulatory Limitations: no limitations - History of Present Illness Initial Comments: 60-year-old female past medical history of asthma, COPD, heart failure, diabetes presents to the emergency department with shortness of breath. Patient was diagnosed with Covid in June of this year. States that she developed long-term symptoms. She has been seeing Dr. Fried and has been on 2 courses of steroids as well as 2 courses of antibiotics. States that when she is on the medication she does well. She saw Dr. Fried at the beginning of August and was doing well however soon after she finished her steroids and has recurrence of her symptoms. She has oxygen at home and wears 2 L when needed. States she's been turning her oxygen level up however feels like it has not been helping. She is using her rescue inhaler as well as her Wixela inhaler. Denies any worsening lower extremity edema. No chest pain. No fevers, chills or cough. No other alleviating, precipitating or modifying factors - Related Data Home Medications Medication Instructions Recorded Confirmed Loratadine [Claritin] 10 mg PO DAILY 06/09/15 07/30/21 EPINEPHrine (Auto Inject) [Epipen] 0.3 mg IM ONCE PRN 04/19/20 07/30/21 Insulin Glargine,Hum.rec.anlog 35 unit SQ HS 04/19/20 07/30/21 [Lantus Solostar Pen] Losartan [Cozaar] 50 mg PO BID 04/19/20 07/30/21 Sennosides/Docusate Sodium [Senna 1 tab PO BID 04/19/20 07/30/21 Plus 8.6-50 mg Tablet] Diltiazem HCl [Cartia Xt] 300 mg PO DAILY 07/14/20 07/30/21 Fluticasone Propion/Salmeterol 1 puff INHALATION RT-BID 07/14/21 07/30/21 [Wixela 250-50 Inhub] Insulin Aspart [NovoLOG Flexpen] 30 units SQ TID 07/14/21 07/30/21 Nystatin [Nystop] 1 applic TOPICAL DAILY PRN 07/14/21 07/30/21 Atorvastatin [Lipitor] 40 mg PO HS 07/30/21 07/30/21 Cholecalciferol [Vitamin D3 (25 50 mcg PO DAILY 07/30/21 07/30/21 Mcg = 1000 Iu)] Echinacea 400 mg PO DAILY 07/30/21 07/30/21 Ibuprofen/Pseudoephedrine HCl 1 tab PO Q4H PRN 07/30/21 07/30/21 [Advil Cold & Sinus Caplet] Power C Gummy 3 tab PO DAILY 07/30/21 07/30/21 Zinc 50 mg PO DAILY 07/30/21 07/30/21 metFORMIN HCL [Glucophage] 1,000 mg PO BID 07/30/21 07/30/21 rOPINIRole HCL [Requip] 4 mg PO HS 07/30/21 07/30/21 Previous Rx's Medication Instructions Recorded Ticagrelor [Brilinta] 90 mg PO BID #60 tab 08/12/18 Aspirin 81 mg PO DAILY 30 Days #30 chew 05/02/20 Albuterol Inhaler [Ventolin Hfa 2 puff INHALATION RT-QID PRN gm 07/19/21 Inhaler] Azithromycin [Zithromax Z-pack (6 0 mg PO DIRECTED #1 packet 07/30/21 tabs)] Dexamethasone [Decadron] 6 mg PO DAILY #5 tablet 07/30/21 Magnesium Oxide [Mag-Ox] 400 mg PO DAILY #14 tablet 09/07/21 predniSONE [Deltasone] 20 mg PO BID #10 tab 09/07/21 Allergies Allergy/AdvReac Type Severity Reaction Status Date / Time ammonia Allergy Dyspnea & Verified 09/07/21 15:36 Passed Out atenolol Allergy Dyspnea, Verified 09/07/21 15:36 Migraine cephalexin [From Keflex] Allergy Dyspnea Verified 09/07/21 15:36 diphtheria,pertussis Allergy Dyspnea & Verified 09/07/21 15:36 (acellular),te Heart [From Boostrix Tdap] Palpitations & Nausea dulaglutide [From Trulicity] Allergy Dyspnea Verified 09/07/21 15:36 exenatide [From Byetta] Allergy Unknown Verified 09/07/21 15:36 feathers Allergy Anaphylaxis Verified 09/07/21 15:36 guaifenesin Allergy Dyspnea Verified 09/07/21 15:36 influenza virus vaccine, Allergy Dyspnea & Verified 09/07/21 15:36 specific Heart Palpitations & Nausea meperidine [From Demerol] Allergy Hives, Verified 09/07/21 15:36 Rash, Hypotension meperidine HCl [From Demerol] Allergy Anaphylaxis Verified 09/07/21 15:36 mint Allergy Anaphylaxis Verified 09/07/21 15:36 mold Allergy Anaphylaxis Verified 09/07/21 15:36 nifedipine [From Procardia] Allergy Unknown Verified 09/07/21 15:36 pneumococcal vaccine Allergy Dyspnea & Verified 09/07/21 15:36 Heart Palpitations & Nausea simvastatin [From Zocor] Allergy Muscle/Joint Verified 09/07/21 15:36 Pain venom-honey bee Allergy Anaphylaxis Verified 09/07/21 15:36 [bee venom (honey bee)] wool Allergy Anaphylaxis Verified 09/07/21 15:36 zolpidem [From Ambien] Allergy Dyspnea, Verified 09/07/21 15:36 Migraine zolpidem tartrate Allergy Dyspnea, Verified 09/07/21 15:36 [From Ambien] Migraine zoster vaccine live Allergy Dyspnea & Verified 09/07/21 15:36 Heart Palpitations & Nausea amlodipine AdvReac Headache Verified 09/07/21 15:36 barium sulfate AdvReac rectal Verified 09/07/21 15:36 bleeding diphenhydramine AdvReac Hypertensio Verified 09/07/21 15:36 n fexofenadine [From Elena] AdvReac Migraine Verified 09/07/21 15:36 fexofenadine HCl AdvReac Muscle Pain Verified 09/07/21 15:36 [From Elena] fluoxetine AdvReac "Feeling Verified 09/07/21 15:36 Irritable" fluvastatin AdvReac Muscle Pain Verified 09/07/21 15:36 hydrochlorothiazide AdvReac Tachycardia Verified 09/07/21 15:36 isosorbide [From Imdur] AdvReac Migraine Verified 09/07/21 15:36 lisinopril AdvReac Fatigue, Verified 09/07/21 15:36 Cough modafinil AdvReac Headache Verified 09/07/21 15:36 nitroglycerin AdvReac Dizziness Verified 09/07/21 15:36 ondansetron [From Zofran] AdvReac Nausea Verified 09/07/21 15:36 paroxetine [From Paxil] AdvReac "Depression Verified 09/07/21 15:36 " paroxetine HCl [From Paxil] AdvReac "Depressed" Verified 09/07/21 15:36 sertraline HCl [From Zoloft] AdvReac Fatigue Verified 09/07/21 15:36 Jaonapr-HVM-MbB Reductase AdvReac Muscle/Joint Verified 09/07/21 15:36 Inhibitor Pain [Esuomqb-Khz-Bbw Reductase Inhibitor] sumatriptan AdvReac Palpitation Verified 09/07/21 15:36 s venlafaxine [From Effexor] AdvReac Tachycardia Verified 09/07/21 15:36 hay Allergy Dyspnea Uncoded 09/07/21 15:36 lysol Allergy Dyspnea Uncoded 09/07/21 15:36 Review of Systems ROS Statement: Those systems with pertinent positive or pertinent negative responses have been documented in the HPI. ROS Other: All systems not noted in ROS Statement are negative. Past Medical History Past Medical History: Asthma, COPD, CVA/TIA, Diabetes Mellitus, GERD/Reflux, Hearing Disorder / Deafness, Hyperlipidemia, Hypertension, Seizure Disorder, Sleep Apnea/CPAP/BIPAP, Thyroid Disorder Additional Past Medical History / Comment(s): additional hx: right bundle branch block,barretts esophagus, migraines, deanna hearing aids, lung nodules, fatty liver, pulmonary hypertension, heart murmur,obesity, IBS, RLS, arthritis, ADHD, DJD, anemia, lactose intolerance; last seizure 21 years ago, kidney stones x2, covid 07/08 History of Any Multi-Drug Resistant Organisms: None Reported Date of last positivie culture/infection: November 2020 MDRO Source:: Abdomen Past Surgical History: Bowel Resection, Cholecystectomy, Hysterectomy Additional Past Surgical History / Comment(s): breast biopsy,esophageal surgery - 2002, Colostomy Apr 2020, colostomy reversed october 2020 Past Anesthesia/Blood Transfusion Reactions: No Reported Reaction Additional Past Anesthesia/Blood Transfusion Reaction / Comment(s): gets nauseous at times. Past Psychological History: Anxiety, Depression Smoking Status: Second hand smoke exposure Past Alcohol Use History: None Reported Past Drug Use History: None Reported - Past Family History Mother History Unknown: Yes Family Medical History: Congestive Heart Failure (CHF), Myocardial Infarction ([place]) Additional Family Medical History / Comment(s): 77 Father History Unknown: Yes Family Medical History: COPD, Myocardial Infarction ([place]) Additional Family Medical History / Comment(s): at 56 Sister(s) History Unknown: Yes Family Medical History: Myocardial Infarction ([place]) Additional Family Medical History / Comment(s): at 56 Brother(s) Family Medical History: Cancer Additional Family Medical History / Comment(s): colon cancer General Exam Limitations: no limitations General appearance: alert, in no apparent distress Head exam: Present: atraumatic, normocephalic, normal inspection Eye exam: Present: normal appearance, PERRL, EOMI. Absent: scleral icterus, conjunctival injection, periorbital swelling ENT exam: Present: normal exam, mucous membranes moist Neck exam: Present: normal inspection. Absent: tenderness, meningismus, lymphadenopathy Respiratory exam: Present: wheezes, decreased breath sounds, other (tachypnia). Absent: respiratory distress, rales, rhonchi, stridor Cardiovascular Exam: Present: regular rate, normal rhythm, normal heart sounds. Absent: systolic murmur, diastolic murmur, rubs, gallop, clicks GI/Abdominal exam: Present: soft, normal bowel sounds. Absent: distended, tenderness, guarding, rebound, rigid Extremities exam: Present: normal inspection, full ROM, normal capillary refill. Absent: tenderness, pedal edema, joint swelling, calf tenderness Back exam: Present: normal inspection Neurological exam: Present: alert, oriented X3, CN II-XII intact Psychiatric exam: Present: normal affect, normal mood Skin exam: Present: warm, dry, intact, normal color. Absent: rash Course Vital Signs 09/07/21 09/07/21 09/07/21 15:33 15:40 17:24 Temperature 98.1 F Pulse Rate 87 78 Respiratory 26 H 22 Rate Blood Pressure 159/63 O2 Sat by Pulse 99 Oximetry 09/07/21 09/07/21 17:33 19:19 Temperature 98.2 F Pulse Rate 78 82 Respiratory 22 Rate Blood Pressure 162/71 O2 Sat by Pulse 97 Oximetry Medical Decision Making - Medical Decision Making On arrival patient is placed into room 23. A thorough history and physical exam was performed. Patient is mildly tachypneic however saturates 99% on room air. Laboratory studies are conducted which revealed a lactic acid 2.3. Troponin is negative. BNP 154. Chest x-ray demonstrates no acute changes. Cardiomegaly and mild pulmonary vascular congestion however patient's BNP is low. She is given a DuoNeb breathing treatment. Magnesium is replaced but also given as a bronchodilator. She is given 125 mg of Solu-Medrol. Patient will be treated with steroids in the outpatient setting at this time. Instructed to call Dr. Fried in the morning for follow-up. Return to the emergency room for any new or worsening symptoms. Patient was agreeable to this plan and she was discharged home in stable condition - Lab Data Result diagrams: 09/07/21 16:00 09/07/21 16:00 Lab Results 09/07/21 09/07/21 09/07/21 Range/Units 16:00 16:00 16:00 WBC 8.7 (3.8-10.6) k/uL RBC 4.72 (3.80-5.40) m/uL Hgb 10.6 L (11.4-16.0) gm/dL Hct 34.8 (34.0-46.0) % MCV 73.6 L (80.0-100.0) fL MCH 22.5 L (25.0-35.0) pg MCHC 30.6 L (31.0-37.0) g/dL RDW 17.0 H (11.5-15.5) % Plt Count 275 (150-450) k/uL MPV 6.6 Neutrophils % 77 % Lymphocytes % 16 % Monocytes % 3 % Eosinophils % 2 % Basophils % 1 % Neutrophils # 6.8 (1.3-7.7) k/uL Lymphocytes # 1.4 (1.0-4.8) k/uL Monocytes # 0.3 (0-1.0) k/uL Eosinophils # 0.2 (0-0.7) k/uL Basophils # 0.1 (0-0.2) k/uL Hypochromasia Moderate Anisocytosis Slight Microcytosis Moderate PT 10.0 (9.0-12.0) sec INR 0.9 (<1.2) APTT 21.3 L (22.0-30.0) sec Sodium 136 L (137-145) mmol/L Potassium 4.9 (3.5-5.1) mmol/L Chloride 103 (98-107) mmol/L Carbon Dioxide 22 (22-30) mmol/L Anion Gap 11 mmol/L BUN 15 (7-17) mg/dL Creatinine 0.67 (0.52-1.04) mg/dL Est GFR (CKD-EPI)AfAm >90 (>60 ml/min/1.73 sqM) Est GFR (CKD-EPI)NonAf >90 (>60 ml/min/1.73 sqM) Glucose 182 H (74-99) mg/dL Lactic Ac Sepsis Rflx Plasma Lactic Acid Mitchell (0.7-2.0) mmol/L Calcium 8.9 (8.4-10.2) mg/dL Magnesium 1.4 L (1.6-2.3) mg/dL Total Bilirubin 0.8 (0.2-1.3) mg/dL AST 43 H (14-36) U/L ALT 21 (4-34) U/L Alkaline Phosphatase 83 (38-126) U/L Troponin I (0.000-0.034) ng/mL NT-Pro-B Natriuret Pep pg/mL Total Protein 7.4 (6.3-8.2) g/dL Albumin 4.3 (3.5-5.0) g/dL 09/07/21 09/07/21 09/07/21 Range/Units 16:00 16:00 16:00 WBC (3.8-10.6) k/uL RBC (3.80-5.40) m/uL Hgb (11.4-16.0) gm/dL Hct (34.0-46.0) % MCV (80.0-100.0) fL MCH (25.0-35.0) pg MCHC (31.0-37.0) g/dL RDW (11.5-15.5) % Plt Count (150-450) k/uL MPV Neutrophils % % Lymphocytes % % Monocytes % % Eosinophils % % Basophils % % Neutrophils # (1.3-7.7) k/uL Lymphocytes # (1.0-4.8) k/uL Monocytes # (0-1.0) k/uL Eosinophils # (0-0.7) k/uL Basophils # (0-0.2) k/uL Hypochromasia Anisocytosis Microcytosis PT (9.0-12.0) sec INR (<1.2) APTT (22.0-30.0) sec Sodium (137-145) mmol/L Potassium (3.5-5.1) mmol/L Chloride (98-107) mmol/L Carbon Dioxide (22-30) mmol/L Anion Gap mmol/L BUN (7-17) mg/dL Creatinine (0.52-1.04) mg/dL Est GFR (CKD-EPI)AfAm (>60 ml/min/1.73 sqM) Est GFR (CKD-EPI)NonAf (>60 ml/min/1.73 sqM) Glucose (74-99) mg/dL Lactic Ac Sepsis Rflx Plasma Lactic Acid Mitchell 2.3 H* (0.7-2.0) mmol/L Calcium (8.4-10.2) mg/dL Magnesium (1.6-2.3) mg/dL Total Bilirubin (0.2-1.3) mg/dL AST (14-36) U/L ALT (4-34) U/L Alkaline Phosphatase (38-126) U/L Troponin I <0.012 (0.000-0.034) ng/mL NT-Pro-B Natriuret Pep 154 pg/mL Total Protein (6.3-8.2) g/dL Albumin (3.5-5.0) g/dL 09/07/21 Range/Units 16:38 WBC (3.8-10.6) k/uL RBC (3.80-5.40) m/uL Hgb (11.4-16.0) gm/dL Hct (34.0-46.0) % MCV (80.0-100.0) fL MCH (25.0-35.0) pg MCHC (31.0-37.0) g/dL RDW (11.5-15.5) % Plt Count (150-450) k/uL MPV Neutrophils % % Lymphocytes % % Monocytes % % Eosinophils % % Basophils % % Neutrophils # (1.3-7.7) k/uL Lymphocytes # (1.0-4.8) k/uL Monocytes # (0-1.0) k/uL Eosinophils # (0-0.7) k/uL Basophils # (0-0.2) k/uL Hypochromasia Anisocytosis Microcytosis PT (9.0-12.0) sec INR (<1.2) APTT (22.0-30.0) sec Sodium (137-145) mmol/L Potassium (3.5-5.1) mmol/L Chloride (98-107) mmol/L Carbon Dioxide (22-30) mmol/L Anion Gap mmol/L BUN (7-17) mg/dL Creatinine (0.52-1.04) mg/dL Est GFR (CKD-EPI)AfAm (>60 ml/min/1.73 sqM) Est GFR (CKD-EPI)NonAf (>60 ml/min/1.73 sqM) Glucose (74-99) mg/dL Lactic Ac Sepsis Rflx Y Plasma Lactic Acid Mitchell (0.7-2.0) mmol/L Calcium (8.4-10.2) mg/dL Magnesium (1.6-2.3) mg/dL Total Bilirubin (0.2-1.3) mg/dL AST (14-36) U/L ALT (4-34) U/L Alkaline Phosphatase (38-126) U/L Troponin I (0.000-0.034) ng/mL NT-Pro-B Natriuret Pep pg/mL Total Protein (6.3-8.2) g/dL Albumin (3.5-5.0) g/dL - EKG Data EKG Comments: EKG demonstrates sinus rhythm with a rate of 84. MT interval 174. QRS 137. QTC 441. Right bundle-branch block. No acute ST segment elevations Disposition Clinical Impression: COVID-19 long rheauler, Chronic respiratory insufficiency Disposition: HOME SELF-CARE Condition: Stable Instructions (If sedation given, give patient instructions): Gage ALONZO (ED) Additional Instructions: Please call Dr. Fried in the morning for a follow-up appointment. You need your magnesium level recheck. Take the steroids as directed. Use your inhalers and return for any new or worsening symptoms Prescriptions: predniSONE [Deltasone] 20 mg PO BID #10 tab Magnesium Oxide [Mag-Ox] 400 mg PO DAILY #14 tablet Is patient prescribed a controlled substance at d/c from ED?: No Referrals: León Martin MD [Primary Care Provider] - 1-2 days Ivanna Fried MD [STAFF PHYSICIAN] - 1-2 days Time of Disposition: 19:07
[2021-09-07 16:20] VITALS: RESP 22
[2021-09-07 16:20] LABS: Anisocytosis Slight; Basophils # (A) 0.1 k/uL (0-0.2); Basophils % (A) 1 %; Eosinophils # (A) 0.2 k/uL (0-0.7); Eosinophils % (A) 2 %; HCT 34.8 % (34.0-46.0); HGB 10.6 gm/dL (11.4-16.0); Hypochromasia Moderate; Lymphocytes # (A) 1.4 k/uL (1.0-4.8); Lymphocytes % (A) 16 %; MCH 22.5 pg (25.0-35.0); MCHC 30.6 g/dL (31.0-37.0); MCV 73.6 fL (80.0-100.0); Mean Platelet Volume 6.6; Microcytosis Moderate; Monocytes # (A) 0.3 k/uL (0-1.0); Monocytes % (A) 3 %; Neutrophils # (A) 6.8 k/uL (1.3-7.7); Neutrophils % (A) 77 %; Platelet Count 275 k/uL (150-450); RBC 4.72 m/uL (3.80-5.40); WBC 8.7 k/uL (3.8-10.6)
[2021-09-07 16:29] LABS: INR 0.9 (<1.2)
[2021-09-07 16:31] LABS: ALT 21 U/L (4-34); African American GFR (CKD) >90 (>60 ml/min/1.73 sqM); Anion Gap 11 mmol/L; Blood Urea Nitrogen 15 mg/dL (7-17); Calcium 8.9 mg/dL (8.4-10.2); Carbon Dioxide 22 mmol/L (22-30); Chloride 103 mmol/L (98-107); Glucose 182 mg/dL (74-99); Non-African American GFR(CKD) >90 (>60 ml/min/1.73 sqM); Sodium 136 mmol/L (137-145)
--- NOTE | 2021-09-07 16:33 | XR ---
EXAMINATION TYPE: XR chest 2V DATE OF EXAM: 09/07/2021 4:23 PM COMPARISON: Chest radiographs from 07/30/2021 TECHNIQUE: XR chest 2V Frontal and lateral views of the chest. CLINICAL INDICATION:Female, 60 years old with history of difficulty breathing; FINDINGS: Lungs/Pleura: There is no evidence of pleural effusion, focal consolidation, or pneumothorax. Pulmonary vascularity: Pulmonary vascular congestion. Heart/mediastinum: Cardiomediastinal silhouette is enlarged and stable. Musculoskeletal: No acute osseous pathology. IMPRESSION: Cardiomegaly and mild pulmonary vascular congestion. Correlate with BNP for congestive heart failure.
[2021-09-07 16:36] LABS: Albumin 4.3 g/dL (3.5-5.0); Potassium 4.9 mmol/L (3.5-5.1); Total Protein 7.4 g/dL (6.3-8.2)
[2021-09-07 16:37] LABS: AST 43 U/L (14-36); Alkaline Phosphatase 83 U/L (38-126); Magnesium 1.4 mg/dL (1.6-2.3); Total Bilirubin 0.8 mg/dL (0.2-1.3)
[2021-09-07 16:38] LABS: Partial Thromboplastin Time 21.3 sec (22.0-30.0)
[2021-09-07] MEDS ORDERED: IPRATROPIUM-ALBUTEROL 3 ML NEB INHALATION STA (17:00)
[2021-09-07] MEDS ORDERED: MAGNESIUM SULFATE-D5W PMX 1 GM in DEXTROSE/WATER 1 100ML.BAG IVPB ONE (17:41)
[2021-09-07] MEDS ORDERED: methylPREDNISolone SOD SUCCI 125 MG/2 ML VIAL IV STA (17:42)
[2021-09-07 19:25] VITALS: BP 162/71; PULSE 82; TEMP 98.2
== END 2021-09-07 19:30 | disposition home or self-care (01) ==
LOC: EC 15:31
DX: U09.9 Post COVID-19 condition, unspecified (principal); R06.89 Other abnormalities of breathing; E11.9 Type 2 diabetes mellitus without complications; E66.9 Obesity, unspecified; E78.5 Hyperlipidemia, unspecified; G25.81 Restless legs syndrome; I11.0 Hypertensive heart disease with heart failure; I50.9 Heart failure, unspecified; J44.9 Chronic obstructive pulmonary disease, unspecified; K21.9 Gastro-esophageal reflux disease without esophagitis; Z79.1 Long term (current) use of non-steroidal anti-inflammatories (NSAID); Z79.4 Long term (current) use of insulin; Z79.51 Long term (current) use of inhaled steroids; Z86.73 Personal history of transient ischemic attack (TIA), and cerebral infarction without residual deficits; Z88.1 Allergy status to other antibiotic agents; Z88.5 Allergy status to narcotic agent; Z88.7 Allergy status to serum and vaccine; Z88.8 Allergy status to other drugs, medicaments and biological substances; Z90.49 Acquired absence of other specified parts of digestive tract; Z91.030 Bee allergy status; Z77.22 Contact with and (suspected) exposure to environmental tobacco smoke (acute) (chronic); Z68.43 Body mass index [BMI] 50.0-59.9, adult; Z88.6 Allergy status to analgesic agent; Z79.899 Other long term (current) drug therapy
CPT/HCPCS: 36415; 94640; 93005; 83880; 80053; 83605; 83735; 84484; 85025; 85610; 85730; 71046; 99285; 96365; 96375; J2930; J3475

== ENCOUNTER → 2021-09-29 | Outpatient (CLI) | payer OTHER ==
--- NOTE | 2021-10-01 09:25 | MM ---
Reason for Exam: Screening (asymptomatic). Last mammogram was performed 3 year(s) and 7 month(s) ago. Patient History: Menarche at age 9. First Full-Term at age 20. Hysterectomy at age 38. Patient used Estrogen for 5 years. Benign Excisional Biopsy on the right side. Risk Values: Vane 5 year model risk: 1.8%. NCI Lifetime model risk: 8.0%. Prior Study Comparison: 06/04/2015 Screening Mammogram, [facility]. 09/09/2016 Bilateral Screening Mammogram, [facility]. 03/14/2018 Bilateral Screening Mammogram, [facility]. Tissue Density: There are scattered fibroglandular densities. Findings: Analyzed By CAD. There is occasional scattered benign-appearing round calcification redemonstrated throughout both breasts. There is no suspicious group of microcalcifications or new suspicious mass in either breast. Overall Assessment: Benign, BI-RAD 2 Management: Screening Mammogram of both breasts in 1 year. A clinical breast exam by your physician is recommended on an annual basis and results should be correlated with mammographic findings. Electronically signed and approved by: Seth Ozuna M.D.
== END | disposition home or self-care (01) ==
LOC: RADMAMWWP 13:28
PROVIDERS: ATTEND General Practice
DX: Z12.31 Encounter for screening mammogram for malignant neoplasm of breast (principal)
CPT/HCPCS: 77067

== ENCOUNTER 2021-10-30 14:59 | Observation (INO) | payer OTHER ==
--- NOTE | 2021-10-30 16:37 | XR ---
EXAMINATION TYPE: XR chest 2V DATE OF EXAM: 10/30/2021 COMPARISON: Chest x-ray September 07, 2021 HISTORY: Chest pain. TECHNIQUE: Frontal and lateral views of the chest are obtained. FINDINGS: There is some chronic parenchymal change without suspicious focal air space opacity, pleur al effusion, or pneumothorax seen. Cardiomegaly is redemonstrated. Surgical screws in the right humer al head are noted. IMPRESSION: Cardiomegaly and mild chronic parenchymal change without acute pulmonary process. No sig nificant change from prior.
--- NOTE | 2021-10-30 17:06 | ED ---
General Adult HPI - General Chief complaint: Chest Pain Stated complaint: Chest pains Time Seen by Provider: 10/30/21 16:41 Source: patient, RN notes reviewed Mode of arrival: ambulatory Limitations: no limitations - History of Present Illness Initial comments: Patient is a pleasant 60-year-old female presenting to the emergency Department with complaints of chest discomfort. Patient has had several episodes over the past couple of days. Discomfort is sharp and stabbing. Discomfort is somewhat severe. Currently no discomfort. Patient has had a little bit increased from her baseline shortness of breath. Patient has had some nausea. No vomiting. No sweating. No leg pain or leg swelling. - Related Data Home Medications Medication Instructions Recorded Confirmed Loratadine [Claritin] 10 mg PO DAILY 06/09/15 07/30/21 EPINEPHrine (Auto Inject) [Epipen] 0.3 mg IM ONCE PRN 04/19/20 07/30/21 Insulin Glargine,Hum.rec.anlog 35 unit SQ HS 04/19/20 07/30/21 [Lantus Solostar Pen] Losartan [Cozaar] 50 mg PO BID 04/19/20 07/30/21 Sennosides/Docusate Sodium [Senna 1 tab PO BID 04/19/20 07/30/21 Plus 8.6-50 mg Tablet] dilTIAZem HCL [Cartia Xt] 300 mg PO DAILY 07/14/20 07/30/21 Fluticasone Propion/Salmeterol 1 puff INHALATION RT-BID 07/14/21 07/30/21 [Wixela 250-50 Inhub] Insulin Aspart [NovoLOG Flexpen] 30 units SQ TID 07/14/21 07/30/21 Nystatin [Nystop] 1 applic TOPICAL DAILY PRN 07/14/21 07/30/21 Atorvastatin [Lipitor] 40 mg PO HS 07/30/21 07/30/21 Cholecalciferol [Vitamin D3 (25 50 mcg PO DAILY 07/30/21 07/30/21 Mcg = 1000 Iu)] Echinacea 400 mg PO DAILY 07/30/21 07/30/21 Ibuprofen/Pseudoephedrine HCl 1 tab PO Q4H PRN 07/30/21 07/30/21 [Advil Cold & Sinus Caplet] Power C Gummy 3 tab PO DAILY 07/30/21 07/30/21 Zinc 50 mg PO DAILY 07/30/21 07/30/21 metFORMIN HCL [Glucophage] 1,000 mg PO BID 07/30/21 07/30/21 rOPINIRole HCL [Requip] 4 mg PO HS 07/30/21 07/30/21 Previous Rx's Medication Instructions Recorded Ticagrelor [Brilinta] 90 mg PO BID #60 tab 08/12/18 Aspirin 81 mg PO DAILY 30 Days #30 chew 05/02/20 Albuterol Inhaler [Ventolin Hfa 2 puff INHALATION RT-QID PRN gm 07/19/21 Inhaler] Azithromycin [Zithromax Z-pack (6 0 mg PO DIRECTED #1 packet 07/30/21 tabs)] dexAMETHasone [Decadron] 6 mg PO DAILY #5 tablet 07/30/21 Magnesium Oxide [Mag-Ox] 400 mg PO DAILY #14 tablet 09/07/21 predniSONE [Deltasone] 20 mg PO BID #10 tab 09/07/21 Allergies Allergy/AdvReac Type Severity Reaction Status Date / Time ammonia Allergy Dyspnea & Verified 10/30/21 16:23 Passed Out atenolol Allergy Dyspnea, Verified 10/30/21 16:23 Migraine cephalexin [From Keflex] Allergy Dyspnea Verified 10/30/21 16:23 diphtheria,pertussis Allergy Dyspnea & Verified 10/30/21 16:23 (acellular),te Heart [From Boostrix Tdap] Palpitations & Nausea dulaglutide [From Trulicity] Allergy Dyspnea Verified 10/30/21 16:23 exenatide [From Byetta] Allergy Unknown Verified 10/30/21 16:23 feathers Allergy Anaphylaxis Verified 10/30/21 16:23 guaifenesin Allergy Dyspnea Verified 10/30/21 16:23 influenza virus vaccine, Allergy Dyspnea & Verified 10/30/21 16:23 specific Heart Palpitations & Nausea meperidine [From Demerol] Allergy Hives, Verified 10/30/21 16:23 Rash, Hypotension meperidine HCl [From Demerol] Allergy Anaphylaxis Verified 10/30/21 16:23 mint Allergy Anaphylaxis Verified 10/30/21 16:23 mold Allergy Anaphylaxis Verified 10/30/21 16:23 nifedipine [From Procardia] Allergy Unknown Verified 10/30/21 16:23 pneumococcal vaccine Allergy Dyspnea & Verified 10/30/21 16:23 Heart Palpitations & Nausea simvastatin [From Zocor] Allergy Muscle/Joint Verified 10/30/21 16:23 Pain venom-honey bee Allergy Anaphylaxis Verified 10/30/21 16:23 [bee venom (honey bee)] wool Allergy Anaphylaxis Verified 10/30/21 16:23 zolpidem [From Ambien] Allergy Dyspnea, Verified 10/30/21 16:23 Migraine zolpidem tartrate Allergy Dyspnea, Verified 10/30/21 16:23 [From Ambien] Migraine zoster vaccine live Allergy Dyspnea & Verified 10/30/21 16:23 Heart Palpitations & Nausea amlodipine AdvReac Headache Verified 10/30/21 16:23 barium sulfate AdvReac rectal Verified 10/30/21 16:23 bleeding diphenhydramine AdvReac Hypertensio Verified 10/30/21 16:23 n fexofenadine [From Elena] AdvReac Migraine Verified 10/30/21 16:23 fexofenadine HCl AdvReac Muscle Pain Verified 10/30/21 16:23 [From Elena] fluoxetine AdvReac "Feeling Verified 10/30/21 16:23 Irritable" fluvastatin AdvReac Muscle Pain Verified 10/30/21 16:23 hydrochlorothiazide AdvReac Tachycardia Verified 10/30/21 16:23 isosorbide [From Imdur] AdvReac Migraine Verified 10/30/21 16:23 lisinopril AdvReac Fatigue, Verified 10/30/21 16:23 Cough modafinil AdvReac Headache Verified 10/30/21 16:23 nitroglycerin AdvReac Dizziness Verified 10/30/21 16:23 ondansetron [From Zofran] AdvReac Nausea Verified 10/30/21 16:23 paroxetine [From Paxil] AdvReac "Depression Verified 10/30/21 16:23 " paroxetine HCl [From Paxil] AdvReac "Depressed" Verified 10/30/21 16:23 sertraline HCl [From Zoloft] AdvReac Fatigue Verified 10/30/21 16:23 [id number]-QGU-AzB Reductase AdvReac Muscle/Joint Verified 10/30/21 16:23 Inhibitor Pain [Jnlafpf-Czd-Vbw Reductase Inhibitor] sumatriptan AdvReac Palpitation Verified 10/30/21 16:23 s venlafaxine [From Effexor] AdvReac Tachycardia Verified 10/30/21 16:23 hay Allergy Dyspnea Uncoded 10/30/21 16:23 lysol Allergy Dyspnea Uncoded 10/30/21 16:23 Review of Systems ROS Statement: Those systems with pertinent positive or pertinent negative responses have been documented in the HPI. ROS Other: All systems not noted in ROS Statement are negative. Constitutional: Denies: fever Eyes: Denies: eye pain ENT: Denies: ear pain Respiratory: Reports: as per HPI, dyspnea. Denies: cough Cardiovascular: Reports: as per HPI, chest pain Endocrine: Denies: fatigue Gastrointestinal: Denies: abdominal pain Genitourinary: Denies: dysuria Musculoskeletal: Denies: back pain Skin: Denies: rash Neurological: Denies: weakness Past Medical History Past Medical History: Asthma, COPD, CVA/TIA, Diabetes Mellitus, GERD/Reflux, Hearing Disorder / Deafness, Hyperlipidemia, Hypertension, Seizure Disorder, Sleep Apnea/CPAP/BIPAP, Thyroid Disorder Additional Past Medical History / Comment(s): additional hx: right bundle branch block,barretts esophagus, migraines, deanna hearing aids, lung nodules, fatty liver, pulmonary hypertension, heart murmur,obesity, IBS, RLS, arthritis, ADHD, DJD, anemia, lactose intolerance; last seizure 21 years ago, kidney stones x2, covid 07/08 History of Any Multi-Drug Resistant Organisms: None Reported Date of last positivie culture/infection: November 2020 MDRO Source:: Abdomen Past Surgical History: Bowel Resection, Cholecystectomy, Hysterectomy Additional Past Surgical History / Comment(s): breast biopsy,esophageal surgery - 2002, Colostomy Apr 2020, colostomy reversed october 2020 Past Anesthesia/Blood Transfusion Reactions: No Reported Reaction Additional Past Anesthesia/Blood Transfusion Reaction / Comment(s): gets nauseous at times. Past Psychological History: Anxiety, Depression Smoking Status: Second hand smoke exposure Past Alcohol Use History: None Reported Past Drug Use History: None Reported - Past Family History Mother History Unknown: Yes Family Medical History: Congestive Heart Failure (CHF), Myocardial Infarction ( PR) Additional Family Medical History / Comment(s): 77 Father History Unknown: Yes Family Medical History: COPD, Myocardial Infarction (PR) Additional Family Medical History / Comment(s): at 56 Sister(s) History Unknown: Yes Family Medical History: Myocardial Infarction (PR) Additional Family Medical History / Comment(s): at 56 Brother(s) Family Medical History: Cancer Additional Family Medical History / Comment(s): colon cancer General Exam Limitations: no limitations General appearance: alert, in no apparent distress Head exam: Present: normocephalic Eye exam: Present: normal appearance Neck exam: Present: normal inspection Respiratory exam: Present: normal lung sounds bilaterally. Absent: chest wall tenderness Cardiovascular Exam: Present: regular rate, normal rhythm Expanded Peripheral pulses: 2+: Radial (R), Radial (L), Dorsalis Pedis (R), Dorsalis Pedis (L) GI/Abdominal exam: Present: soft. Absent: tenderness Extremities exam: Present: normal inspection. Absent: pedal edema, calf tenderness Neurological exam: Present: alert Psychiatric exam: Present: normal affect, normal mood Skin exam: Present: normal color Course Vital Signs 10/30/21 10/30/21 16:20 16:23 Temperature 98 F Pulse Rate 91 Respiratory 24 Rate Blood Pressure 147/110 O2 Sat by Pulse 93 L 96 Oximetry EKG Findings - EKG Comments: EKG Findings:: Sinus rhythm 88. TX 160. QRS 136. QT 422. QTC 468. Left axis. Right bundle branch block. T-wave inversion V1 through V3. Medical Decision Making - Medical Decision Making Patient reevaluated and resting comfortably in bed. Patient updated on results and plan. Case was discussed with Dr. Schneider, who will admit [facility] observation: - Lab Data Result diagrams: 10/30/21 17:28 10/30/21 17:28 Lab Results 10/30/21 10/30/21 10/30/21 Range/Units 17:28 17:28 17:28 WBC 10.1 (3.8-10.6) k/uL RBC 4.90 (3.80-5.40) m/uL Hgb 11.1 L (11.4-16.0) gm/dL Hct 36.7 (34.0-46.0) % MCV 74.8 L (80.0-100.0) fL MCH 22.6 L (25.0-35.0) pg MCHC 30.2 L (31.0-37.0) g/dL RDW 17.5 H (11.5-15.5) % Plt Count 316 (150-450) k/uL MPV 6.7 Neutrophils % 77 % Lymphocytes % 15 % Monocytes % 3 % Eosinophils % 3 % Basophils % 0 % Neutrophils # 7.8 H (1.3-7.7) k/uL Lymphocytes # 1.5 (1.0-4.8) k/uL Monocytes # 0.3 (0-1.0) k/uL Eosinophils # 0.3 (0-0.7) k/uL Basophils # 0.0 (0-0.2) k/uL Hypochromasia Slight Anisocytosis Slight Microcytosis Moderate PT 9.9 (9.0-12.0) sec INR 0.9 (<1.2) APTT 22.0 (22.0-30.0) sec D-Dimer 0.87 H (<0.60) mg/L FEU Sodium 136 L (137-145) mmol/L Potassium 4.5 (3.5-5.1) mmol/L Chloride 103 (98-107) mmol/L Carbon Dioxide 19 L (22-30) mmol/L Anion Gap 14 mmol/L BUN 19 H (7-17) mg/dL Creatinine 0.66 (0.52-1.04) mg/dL Est GFR (CKD-EPI)AfAm >90 (>60 ml/min/1.73 sqM) Est GFR (CKD-EPI)NonAf >90 (>60 ml/min/1.73 sqM) Glucose 247 H (74-99) mg/dL Calcium 9.8 (8.4-10.2) mg/dL Magnesium 1.7 (1.6-2.3) mg/dL Total Bilirubin 0.5 (0.2-1.3) mg/dL AST 30 (14-36) U/L ALT 24 (4-34) U/L Alkaline Phosphatase 119 (38-126) U/L Troponin I (0.000-0.034) ng/mL Total Protein 7.1 (6.3-8.2) g/dL Albumin 4.4 (3.5-5.0) g/dL 10/30/21 Range/Units 17:28 WBC (3.8-10.6) k/uL RBC (3.80-5.40) m/uL Hgb (11.4-16.0) gm/dL Hct (34.0-46.0) % MCV (80.0-100.0) fL MCH (25.0-35.0) pg MCHC (31.0-37.0) g/dL RDW (11.5-15.5) % Plt Count (150-450) k/uL MPV Neutrophils % % Lymphocytes % % Monocytes % % Eosinophils % % Basophils % % Neutrophils # (1.3-7.7) k/uL Lymphocytes # (1.0-4.8) k/uL Monocytes # (0-1.0) k/uL Eosinophils # (0-0.7) k/uL Basophils # (0-0.2) k/uL Hypochromasia Anisocytosis Microcytosis PT (9.0-12.0) sec INR (<1.2) APTT (22.0-30.0) sec D-Dimer (<0.60) mg/L FEU Sodium (137-145) mmol/L Potassium (3.5-5.1) mmol/L Chloride (98-107) mmol/L Carbon Dioxide (22-30) mmol/L Anion Gap mmol/L BUN (7-17) mg/dL Creatinine (0.52-1.04) mg/dL Est GFR (CKD-EPI)AfAm (>60 ml/min/1.73 sqM) Est GFR (CKD-EPI)NonAf (>60 ml/min/1.73 sqM) Glucose (74-99) mg/dL Calcium (8.4-10.2) mg/dL Magnesium (1.6-2.3) mg/dL Total Bilirubin (0.2-1.3) mg/dL AST (14-36) U/L ALT (4-34) U/L Alkaline Phosphatase (38-126) U/L Troponin I <0.012 (0.000-0.034) ng/mL Total Protein (6.3-8.2) g/dL Albumin (3.5-5.0) g/dL - Radiology Data Radiology results: image reviewed (Stick x-ray shows cardiac megaly and chronic intimal changes.) Disposition Clinical Impression: Chest pain Disposition: ADMITTED IP TO THIS [facility] Is patient prescribed a controlled substance at d/c from ED?: No Referrals: León Martin MD [Primary Care Provider] - 1-2 days Time of Disposition: 19:43
[2021-10-30 17:45] LABS: Anisocytosis Slight; Basophils % (A) 0 %; Eosinophils # (A) 0.3 k/uL (0-0.7); Eosinophils % (A) 3 %; HCT 36.7 % (34.0-46.0); HGB 11.1 gm/dL (11.4-16.0); Hypochromasia Slight; Lymphocytes # (A) 1.5 k/uL (1.0-4.8); Lymphocytes % (A) 15 %; MCH 22.6 pg (25.0-35.0); MCHC 30.2 g/dL (31.0-37.0); MCV 74.8 fL (80.0-100.0); Mean Platelet Volume 6.7; Microcytosis Moderate; Monocytes # (A) 0.3 k/uL (0-1.0); Monocytes % (A) 3 %; Neutrophils # (A) 7.8 k/uL (1.3-7.7); Neutrophils % (A) 77 %; Platelet Count 316 k/uL (150-450); RDW 17.5 % (11.5-15.5); WBC 10.1 k/uL (3.8-10.6)
[2021-10-30 17:56] LABS: ALT 24 U/L (4-34); AST 30 U/L (14-36); African American GFR (CKD) >90 (>60 ml/min/1.73 sqM); Albumin 4.4 g/dL (3.5-5.0); Alkaline Phosphatase 119 U/L (38-126); Anion Gap 14 mmol/L; Blood Urea Nitrogen 19 mg/dL (7-17); Calcium 9.8 mg/dL (8.4-10.2); Carbon Dioxide 19 mmol/L (22-30); Chloride 103 mmol/L (98-107); Glucose 247 mg/dL (74-99); Magnesium 1.7 mg/dL (1.6-2.3); Non-African American GFR(CKD) >90 (>60 ml/min/1.73 sqM); Potassium 4.5 mmol/L (3.5-5.1); Sodium 136 mmol/L (137-145); Total Bilirubin 0.5 mg/dL (0.2-1.3); Total Protein 7.1 g/dL (6.3-8.2)
[2021-10-30 18:00] LABS: INR 0.9 (<1.2); Prothrombin Time 9.9 sec (9.0-12.0)
[2021-10-30] MEDS ORDERED: ASPIRIN 81 MG PO STA (19:44)
[2021-10-30] MEDS ORDERED: ACETAMINOPHEN TAB 500 MG TAB PO STA (20:03)
--- NOTE | 2021-10-30 21:53 | CT ---
EXAMINATION TYPE: CT angio chest with IV contrast/ without 3-D Reconstruction rendering at an [employer] workstation DATE OF EXAM: 10/30/2021 COMPARISON: NONE HISTORY: Chest pain. Recent stent sx. CT DLP: 636.7 mGycm. Automated Exposure Control for Dose Reduction was Utilized. CONTRAST: CTA scan of the thorax is performed with IV Contrast, patient injected with 100 mL of Isovu e 370. MIP Images are created on CT scanner and reviewed. 3D reconstructed images are created on an independent workstation and reviewed. FINDINGS: LUNGS AND PLEURAL SPACES: The lungs are well-expanded and clear. The pleural spaces are unremarkable. MEDIASTINUM: There is satisfactory enhancement of the pulmonary artery and its branches, with no CT e vidence for pulmonary embolism. No acute aortic findings. Coronary calcifications are noted. No cardi omegaly or pericardial effusion. There are no greater than 1 cm hilar or mediastinal lymph nodes. OTHER: No additional significant abnormality is seen. IMPRESSION: 1. Negative for pulmonary embolism. 2. Coronary calcifications noted.
[2021-10-31] MEDS ORDERED: ALBUTEROL NEBULIZED 2.5 MG/3 ML INHALATION PRN (01:53)
--- NOTE | 2021-10-31 02:36 | P.HPIM ---
History of Present Illness H&P Date: 10/30/21 Chief Complaint: Chest pain 60-year-old female with COPD, hypertension, obstructive sleep apnea, diabetes mellitus Patient comes in for evaluation of chest pain started suddenly she described it as sharp pain across her chest. Associated with some heavy breathing. This be en going off and on for a few days now denies any history of cardiac disease. She denies any fevers chills coughing denies any nausea vomiting abdominal pain or GI bleeding. She denies any recent travel or prolonged hospital stay denies any active diagnoses of cancer denies any history of blood clots Workup in the ED showed elevated d-dimer CT angiogram the chest was negative for acute PE Patient also has history of microcytic anemia however during her last admission July her iron studies were normal Workup in the ED today showed troponins negative [address] changes Review of Systems Pertinent positives as noted in HPI. All other systems were reviewed and are negative Past Medical History Past Medical History: Asthma, COPD, CVA/TIA, Diabetes Mellitus, GERD/Reflux, Hearing Disorder / Deafness, Hyperlipidemia, Hypertension, Seizure Disorder, Sleep Apnea/CPAP/BIPAP, Thyroid Disorder Additional Past Medical History / Comment(s): additional hx: right bundle branch block,barretts esophagus, migraines, deanna hearing aids, lung nodules, fatty liver, pulmonary hypertension, heart murmur,obesity, IBS, RLS, arthritis, ADHD, DJD, anemia, lactose intolerance; last seizure 21 years ago, kidney stones x2, covid 07/08 History of Any Multi-Drug Resistant Organisms: None Reported Date of last positivie culture/infection: November 2020 MDRO Source:: Abdomen Past Surgical History: Bowel Resection, Cholecystectomy, Hysterectomy Additional Past Surgical History / Comment(s): breast biopsy,esophageal surgery - 2002, Colostomy Apr 2020, colostomy reversed october 2020 Past Anesthesia/Blood Transfusion Reactions: No Reported Reaction Additional Past Anesthesia/Blood Transfusion Reaction / Comment(s): gets nauseous at times. Past Psychological History: Anxiety, Depression Smoking Status: Second hand smoke exposure Past Alcohol Use History: None Reported Past Drug Use History: None Reported - Past Family History Mother History Unknown: Yes Family Medical History: Congestive Heart Failure (CHF), Myocardial Infarction (ID) Additional Family Medical History / Comment(s): 77 Father History Unknown: Yes Family Medical History: COPD, Myocardial Infarction (ID) Additional Family Medical History / Comment(s): at 56 Sister(s) History Unknown: Yes Family Medical History: Myocardial Infarction (ID) Additional Family Medical History / Comment(s): at 56 Brother(s) Family Medical History: Cancer Additional Family Medical History / Comment(s): colon cancer Medications and Allergies Home Medications Medication Instructions Recorded Confirmed Type Loratadine [Claritin] 10 mg PO DAILY 06/09/15 10/30/21 History Ticagrelor [Brilinta] 90 mg PO BID #60 tab 08/12/18 10/30/21 Rx EPINEPHrine (Auto Inject) [Epipen] 0.3 mg IM ONCE PRN 04/19/20 10/30/21 History Insulin Glargine,Hum.rec.anlog 35 unit SQ HS 04/19/20 10/30/21 History [Lantus Solostar Pen] Losartan [Cozaar] 50 mg PO BID 04/19/20 10/30/21 History Sennosides/Docusate Sodium [Senna 1 tab PO BID PRN 04/19/20 10/30/21 History Plus 8.6-50 mg Tablet] Aspirin 81 mg PO DAILY 30 Days #30 chew 05/02/20 10/30/21 Rx dilTIAZem HCL [Cartia Xt] 300 mg PO DAILY 07/14/20 10/30/21 History Fluticasone Propion/Salmeterol 1 puff INHALATION RT-BID 07/14/21 10/30/21 History [Wixela 250-50 Inhub] Insulin Aspart [NovoLOG Flexpen] 20 units SQ TID-W/MEALS 07/14/21 10/30/21 History Atorvastatin [Lipitor] 40 mg PO HS 07/30/21 10/30/21 History Cholecalciferol [Vitamin D3 (25 50 mcg PO DAILY 07/30/21 10/30/21 History Mcg = 1000 Iu)] Echinacea 400 mg PO DAILY 07/30/21 10/30/21 History Ibuprofen/Pseudoephedrine HCl 1 tab PO Q4H PRN 07/30/21 10/30/21 History [Advil Cold & Sinus Caplet] Power C Gummy 3 tab PO DAILY 07/30/21 10/30/21 History Zinc 50 mg PO DAILY 07/30/21 10/30/21 History metFORMIN HCL [Glucophage] 1,000 mg PO BID 07/30/21 10/30/21 History rOPINIRole HCL [Requip] 4 mg PO HS 07/30/21 10/30/21 History Acetaminophen [Tylenol 8 Hour] 1,300 mg PO Q8H PRN 10/30/21 10/30/21 History Albuterol Inhaler [Ventolin Hfa 2 puff INHALATION RT-QID PRN 10/30/21 10/30/21 History Inhaler] Miconazole Nitrate [Lotrimin AF 1 applic TOPICAL DAILY PRN 10/30/21 10/30/21 History Powder] Ozempic 0.5mg/0.375ml 0.5 mg SQ MO 10/30/21 10/30/21 History Allergies Allergy/AdvReac Type Severity Reaction Status Date / Time ammonia Allergy Dyspnea & Verified 10/30/21 20:53 Passed Out atenolol Allergy Dyspnea, Verified 10/30/21 20:53 Migraine cephalexin [From Keflex] Allergy Dyspnea Verified 10/30/21 20:53 diphtheria,pertussis Allergy Dyspnea & Verified 10/30/21 20:53 (acellular),te Heart [From Boostrix Tdap] Palpitations & Nausea dulaglutide [From Trulicity] Allergy Dyspnea Verified 10/30/21 20:53 exenatide [From Byetta] Allergy Unknown Verified 10/30/21 20:53 feathers Allergy Anaphylaxis Verified 10/30/21 20:53 guaifenesin Allergy Dyspnea Verified 10/30/21 20:53 influenza virus vaccine, Allergy Dyspnea & Verified 10/30/21 20:53 specific Heart Palpitations & Nausea meperidine [From Demerol] Allergy Hives, Verified 10/30/21 20:53 Rash, Hypotension meperidine HCl [From Demerol] Allergy Anaphylaxis Verified 10/30/21 20:53 mint Allergy Anaphylaxis Verified 10/30/21 20:53 mold Allergy Anaphylaxis Verified 10/30/21 20:53 nifedipine [From Procardia] Allergy Unknown Verified 10/30/21 20:53 pneumococcal vaccine Allergy Dyspnea & Verified 10/30/21 20:53 Heart Palpitations & Nausea simvastatin [From Zocor] Allergy Muscle/Joint Verified 10/30/21 20:53 Pain venom-honey bee Allergy Anaphylaxis Verified 10/30/21 20:53 [bee venom (honey bee)] wool Allergy Anaphylaxis Verified 10/30/21 20:53 zolpidem [From Ambien] Allergy Dyspnea, Verified 10/30/21 20:53 Migraine zolpidem tartrate Allergy Dyspnea, Verified 10/30/21 20:53 [From Ambien] Migraine zoster vaccine live Allergy Dyspnea & Verified 10/30/21 20:53 Heart Palpitations & Nausea amlodipine AdvReac Headache Verified 10/30/21 20:53 barium sulfate AdvReac rectal Verified 10/30/21 20:53 bleeding diphenhydramine AdvReac Hypertensio Verified 10/30/21 20:53 n fexofenadine [From Elena] AdvReac Migraine Verified 10/30/21 20:53 fexofenadine HCl AdvReac Muscle Pain Verified 10/30/21 20:53 [From Elena] fluoxetine AdvReac "Feeling Verified 10/30/21 20:53 Irritable" fluvastatin AdvReac Muscle Pain Verified 10/30/21 20:53 hydrochlorothiazide AdvReac Tachycardia Verified 10/30/21 20:53 isosorbide [From Imdur] AdvReac Migraine Verified 10/30/21 20:53 lisinopril AdvReac Fatigue, Verified 10/30/21 20:53 Cough modafinil AdvReac Headache Verified 10/30/21 20:53 nitroglycerin AdvReac Dizziness Verified 10/30/21 20:53 ondansetron [From Zofran] AdvReac Nausea Verified 10/30/21 20:53 paroxetine [From Paxil] AdvReac "Depression Verified 10/30/21 20:53 " paroxetine HCl [From Paxil] AdvReac "Depressed" Verified 10/30/21 20:53 sertraline HCl [From Zoloft] AdvReac Fatigue Verified 10/30/21 20:53 Qyrxpaj-NOV-MxR Reductase AdvReac Muscle/Joint Verified 10/30/21 20:53 Inhibitor Pain [Ltqiztc-Hie-Zjw Reductase Inhibitor] sumatriptan AdvReac Palpitation Verified 10/30/21 20:53 s venlafaxine [From Effexor] AdvReac Tachycardia Verified 10/30/21 20:53 hay Allergy Dyspnea Uncoded 10/30/21 20:53 lysol Allergy Dyspnea Uncoded 10/30/21 20:53 Physical Exam Vitals: Vital Signs Temp Pulse Resp BP Pulse Ox 10/30/21 22:24 83 18 170/80 98 10/30/21 16:23 96 10/30/21 16:20 98 F 91 24 147/110 93 L Intake and Output 10/30/21 10/30/21 10/30/21 06:59 14:59 22:59 Other: Weight 113.398 kg Constitutional: No acute distress, conversant, pleasant Eyes: Anicteric sclerae, moist conjunctiva, Pupils equal round reactive to light ENMT: NC/AT Oropharynx clear, no erythema, or exudates Neck: Supple, FROM, no masses, or JVD No carotid bruits No thyromegaly Lungs: Clear to auscultation Clear to percussion Normal respiratory effort, no accessory muscle use Cardiovascular: Heart regular in rate and rhythm, No murmurs, gallops, or rubs No peripheral edema Abdominal: Soft Nontender, no guarding, rebound or rigidity Abdomen moving with respiration Normoactive bowel sounds No hepatomegaly, No splenomegaly No palpable mass No abdominal wall hernia noted Skin: Normal temperature, tone, texture, turgor No induration No subcutaneous nodules No rash, lesions No ulcers Extremities: No digital cyanosis No clubbing Pedal pulses intact and symmetrical Radial pulses intact and symmetrical No calf tenderness Psychiatric: Alert and oriented to person, place and time Appropriate affect fair judgement Neuro Muscles Strength 5/5 in all 4 extremities Sensation to light touch grossly present throughout Cranial nerves II-XII grossly intact No focal sensory deficits Lymphatics: no palpable cervical or supraclavicular , or inguinal lymph nodes Results CBC & Chem 7: 10/30/21 17:28 10/30/21 17:28 Labs: Abnormal Lab Results - Last 24 Hours (Table) 10/30/21 10/30/21 10/30/21 Range/Units 17:28 17:28 17:28 Hgb 11.1 L (11.4-16.0) gm/dL MCV 74.8 L (80.0-100.0) fL MCH 22.6 L (25.0-35.0) pg MCHC 30.2 L (31.0-37.0) g/dL RDW 17.5 H (11.5-15.5) % Neutrophils # 7.8 H (1.3-7.7) k/uL D-Dimer 0.87 H (<0.60) mg/L FEU Sodium 136 L (137-145) mmol/L Carbon Dioxide 19 L (22-30) mmol/L BUN 19 H (7-17) mg/dL Glucose 247 H (74-99) mg/dL Assessment and Plan Assessment: atypical chest pain rule out ACS EKG no acute changes CXR no acute pathology trops negative X2 ophthalmic tech monitor vital signs ASA, statin cardiology consult A1c, lipid panel , TSH pain control Chronic conditions Diabetes mellitus resume home insulin regimen, insulin sliding scale Hypertension resume home blood pressure medications, currently controlled Hyperlipidemia resume statin Obstructive sleep apnea encourage patient to use CPAP Microcytic anemia recent studies done in July were unremarkable Patient denies any GI bleeding Full code DVT to prophylaxis heparin subcutaneous
[2021-10-31 07:13] LABS: Glucose,Whole Blood 274 mg/dL (70-110)
[2021-10-31 07:27] VITALS: BP 143/83; RESP 16; TEMP 97.4
[2021-10-31] MEDS ORDERED: INSULIN ASPART (NovoLOG) 100 UNIT/ML VIAL SQ SCH ×2 (07:30)
[2021-10-31] MEDS ORDERED: REGADENOSON 0.4 MG/5 ML SYRINGE IV PRN (07:54)
[2021-10-31] MEDS ORDERED: CAFFEINE CITRATE 60 MG/3 ML VIAL IV PRN (07:54)
[2021-10-31] MEDS ORDERED: AMINOPHYLLINE 500 MG/20 ML VIAL IV PRN (07:54)
[2021-10-31] MEDS ORDERED: HEPARIN SODIUM,PORCINE/PF 5,000 UNIT/0.5 ML SYRINGE SQ SCH (08:00)
[2021-10-31] MEDS ORDERED: SYMBICORT 80-4.5 MCG INHALER INHALATION SCH (08:00)
--- NOTE | 2021-10-31 08:05 | P.CRDCN ---
History of Present Illness Consult date: 10/31/21 History of present illness: History of Present Illness: The patient is a 60-year-old female with a known history of COPD, hypertension, hyperlipidemia and diabetes mellitus status post stenting of the LAD in 2019 who presented with sharp chest discomfort, lasting for a few seconds and not activity related. Her symptoms have been going on for the last few days. Her a ctivity level is stable but limited, she has a known history of chronic obstructive lung disease and uses oxygen at home. She had COVID infection earlier this year. She is pain-free at this time. She denies any dizziness, palpitations or syncope. She has no PND or orthopnea. She has occasional peripheral edema and a history of obstructive sleep apnea. In the past her systolic function has been preserved. Her troponin and EKG showed no acute changes following admission. [facility]. Medications: Aspirin, metformin, diltiazem 300 mg daily, insulin, losartan 50 mg twice a day, Lipitor 40 mg daily, Brilinta 90 mg twice a day in addition to Requip, Ventolin, Wixela. Review of Systems: Respiratory: She has a history of chronic obstructive lung disease and obstructive sleep apnea, chronic dyspnea on exertion and occasional cough. GI: No nausea or vomiting . No history of peptic ulcer disease. No recent GI bleed. : No hematuria or dysuria. Nervous System: She has no prior history of stroke but she had seizure most recently over 10 years ago Physical Examination: 60-year-old female, alert oriented no apparent distress, obese ,Blood pressure 143/83, Heart rate 63 Head: Normocephalic. Eyes: Sclerae nonicteric. Neck: Good carotid upstroke, no bruit, no jugular venous distention. Lungs: Clear to auscultation. Heart: Regular rate and rhythm, S1-S2, no S3, no rub. Systolic ejection murmur, 2/6. Abdomen: Soft nontender, positive bowel sounds no organomegaly. Extremities: No edema, intact distal pulses. Labs: Hemoglobin 11.1, potassium 4.5, troponin less than 0.012, BUN 19, creatinine 0.66 EKG: Sinus mechanism with right bundle branch block Impression: 1. Chest discomfort atypical for ischemic heart disease in a patient with known history of CAD, probable noncardiac 2. History of CAD with stenting of the LAD in 2019 3. History of hypertension 4. History of diabetes 5. History of hyperlipidemia 6. COPD and obstructive sleep apnea Plan: 1. Stop Brilinta at this time 2. Obtain an echocardiogram with Doppler 3. Pharmacological stress test, if there is no evidence of stress-induced ischemia, no further cardiac workup workup is needed at this time. 4. Depending on the results of the testing further recommendations will be made 5. Thank you for this consult we will follow with. Past Medical History Past Medical History: Asthma, COPD, CVA/TIA, Diabetes Mellitus, GERD/Reflux, Hearing Disorder / Deafness, Hyperlipidemia, Hypertension, Seizure Disorder, Sleep Apnea/CPAP/BIPAP, Thyroid Disorder Additional Past Medical History / Comment(s): additional hx: right bundle branch block,barretts esophagus, migraines, deanna hearing aids, lung nodules, fatty liver, pulmonary hypertension, heart murmur,obesity, IBS, RLS, arthritis, ADHD, DJD, anemia, lactose intolerance; last seizure 21 years ago, kidney stones x2, covid 07/08 History of Any Multi-Drug Resistant Organisms: None Reported Date of last positivie culture/infection: November 2020 MDRO Source:: Abdomen Past Surgical History: Bowel Resection, Cholecystectomy, Hysterectomy Additional Past Surgical History / Comment(s): breast biopsy,esophageal surgery - 2002, Colostomy Apr 2020, colostomy reversed october 2020 Past Anesthesia/Blood Transfusion Reactions: No Reported Reaction Additional Past Anesthesia/Blood Transfusion Reaction / Comment(s): gets nauseous at times. Past Psychological History: Anxiety, Depression Smoking Status: Second hand smoke exposure Past Alcohol Use History: None Reported Past Drug Use History: None Reported - Past Family History Mother History Unknown: Yes Family Medical History: Congestive Heart Failure (CHF), Myocardial Infarction ([place]) Additional Family Medical History / Comment(s): 77 Father History Unknown: Yes Family Medical History: COPD, Myocardial Infarction ([place]) Additional Family Medical History / Comment(s): at 56 Sister(s) History Unknown: Yes Family Medical History: Myocardial Infarction ([place]) Additional Family Medical History / Comment(s): at 56 Brother(s) Family Medical History: Cancer Additional Family Medical History / Comment(s): colon cancer Medications and Allergies Home Medications Medication Instructions Recorded Confirmed Type Loratadine [Claritin] 10 mg PO DAILY 06/09/15 10/30/21 History Ticagrelor [Brilinta] 90 mg PO BID #60 tab 08/12/18 10/30/21 Rx EPINEPHrine (Auto Inject) [Epipen] 0.3 mg IM ONCE PRN 04/19/20 10/30/21 History Insulin Glargine,Hum.rec.anlog 35 unit SQ HS 04/19/20 10/30/21 History [Lantus Solostar Pen] Losartan [Cozaar] 50 mg PO BID 04/19/20 10/30/21 History Sennosides/Docusate Sodium [Senna 1 tab PO BID PRN 04/19/20 10/30/21 History Plus 8.6-50 mg Tablet] Aspirin 81 mg PO DAILY 30 Days #30 chew 05/02/20 10/30/21 Rx dilTIAZem HCL [Cartia Xt] 300 mg PO DAILY 07/14/20 10/30/21 History Fluticasone Propion/Salmeterol 1 puff INHALATION RT-BID 07/14/21 10/30/21 History [Wixela 250-50 Inhub] Insulin Aspart [NovoLOG Flexpen] 20 units SQ TID-W/MEALS 07/14/21 10/30/21 History Atorvastatin [Lipitor] 40 mg PO HS 07/30/21 10/30/21 History Cholecalciferol [Vitamin D3 (25 50 mcg PO DAILY 07/30/21 10/30/21 History Mcg = 1000 Iu)] Echinacea 400 mg PO DAILY 07/30/21 10/30/21 History Ibuprofen/Pseudoephedrine HCl 1 tab PO Q4H PRN 07/30/21 10/30/21 History [Advil Cold & Sinus Caplet] Power C Gummy 3 tab PO DAILY 07/30/21 10/30/21 History Zinc 50 mg PO DAILY 07/30/21 10/30/21 History metFORMIN HCL [Glucophage] 1,000 mg PO BID 07/30/21 10/30/21 History rOPINIRole HCL [Requip] 4 mg PO HS 07/30/21 10/30/21 History Acetaminophen [Tylenol 8 Hour] 1,300 mg PO Q8H PRN 10/30/21 10/30/21 History Albuterol Inhaler [Ventolin Hfa 2 puff INHALATION RT-QID PRN 10/30/21 10/30/21 History Inhaler] Miconazole Nitrate [Lotrimin AF 1 applic TOPICAL DAILY PRN 10/30/21 10/30/21 History Powder] Ozempic 0.5mg/0.375ml 0.5 mg SQ MO 10/30/21 10/30/21 History Allergies Allergy/AdvReac Type Severity Reaction Status Date / Time ammonia Allergy Dyspnea & Verified 10/30/21 20:53 Passed Out atenolol Allergy Dyspnea, Verified 10/30/21 20:53 Migraine cephalexin [From Keflex] Allergy Dyspnea Verified 10/30/21 20:53 diphtheria,pertussis Allergy Dyspnea & Verified 10/30/21 20:53 (acellular),te Heart [From Boostrix Tdap] Palpitations & Nausea dulaglutide [From Trulicity] Allergy Dyspnea Verified 10/30/21 20:53 exenatide [From Byetta] Allergy Unknown Verified 10/30/21 20:53 feathers Allergy Anaphylaxis Verified 10/30/21 20:53 guaifenesin Allergy Dyspnea Verified 10/30/21 20:53 influenza virus vaccine, Allergy Dyspnea & Verified 10/30/21 20:53 specific Heart Palpitations & Nausea meperidine [From Demerol] Allergy Hives, Verified 10/30/21 20:53 Rash, Hypotension meperidine HCl [From Demerol] Allergy Anaphylaxis Verified 10/30/21 20:53 mint Allergy Anaphylaxis Verified 10/30/21 20:53 mold Allergy Anaphylaxis Verified 10/30/21 20:53 nifedipine [From Procardia] Allergy Unknown Verified 10/30/21 20:53 pneumococcal vaccine Allergy Dyspnea & Verified 10/30/21 20:53 Heart Palpitations & Nausea simvastatin [From Zocor] Allergy Muscle/Joint Verified 10/30/21 20:53 Pain venom-honey bee Allergy Anaphylaxis Verified 10/30/21 20:53 [bee venom (honey bee)] wool Allergy Anaphylaxis Verified 10/30/21 20:53 zolpidem [From Ambien] Allergy Dyspnea, Verified 10/30/21 20:53 Migraine zolpidem tartrate Allergy Dyspnea, Verified 10/30/21 20:53 [From Ambien] Migraine zoster vaccine live Allergy Dyspnea & Verified 10/30/21 20:53 Heart Palpitations & Nausea amlodipine AdvReac Headache Verified 10/30/21 20:53 barium sulfate AdvReac rectal Verified 10/30/21 20:53 bleeding diphenhydramine AdvReac Hypertensio Verified 10/30/21 20:53 n fexofenadine [From Elena] AdvReac Migraine Verified 10/30/21 20:53 fexofenadine HCl AdvReac Muscle Pain Verified 10/30/21 20:53 [From Elena] fluoxetine AdvReac "Feeling Verified 10/30/21 20:53 Irritable" fluvastatin AdvReac Muscle Pain Verified 10/30/21 20:53 hydrochlorothiazide AdvReac Tachycardia Verified 10/30/21 20:53 isosorbide [From Imdur] AdvReac Migraine Verified 10/30/21 20:53 lisinopril AdvReac Fatigue, Verified 10/30/21 20:53 Cough modafinil AdvReac Headache Verified 10/30/21 20:53 nitroglycerin AdvReac Dizziness Verified 10/30/21 20:53 ondansetron [From Zofran] AdvReac Nausea Verified 10/30/21 20:53 paroxetine [From Paxil] AdvReac "Depression Verified 10/30/21 20:53 " paroxetine HCl [From Paxil] AdvReac "Depressed" Verified 10/30/21 20:53 sertraline HCl [From Zoloft] AdvReac Fatigue Verified 10/30/21 20:53 Aixzjlu-ZFR-UqJ Reductase AdvReac Muscle/Joint Verified 10/30/21 20:53 Inhibitor Pain [Nysdoko-Fxe-Bwl Reductase Inhibitor] sumatriptan AdvReac Palpitation Verified 10/30/21 20:53 s venlafaxine [From Effexor] AdvReac Tachycardia Verified 10/30/21 20:53 hay Allergy Dyspnea Uncoded 10/30/21 20:53 lysol Allergy Dyspnea Uncoded 10/30/21 20:53 Physical Exam Vitals: Vital Signs Temp Pulse Pulse Resp BP BP Pulse Ox 10/31/21 07:27 97.4 F L 63 16 143/83 95 10/31/21 02:00 97.9 F 57 L 19 135/71 96 10/30/21 23:05 98.2 F 79 18 146/71 95 10/30/21 22:24 83 18 170/80 98 10/30/21 16:23 96 07/14/22 16:20 98 F 91 24 147/110 93 L Intake and Output 10/30/21 10/31/21 10/31/21 22:59 06:59 14:59 Other: # Voids 1 Weight 113.398 kg 113.398 kg Results 10/30/21 17:28 10/30/21 17:28 Cardiac Enzymes 10/30/21 10/30/21 10/30/21 Range/Units 17:28 17:28 20:26 AST 30 (14-36) U/L Troponin I <0.012 <0.012 (0.000-0.034) ng/mL 10/30/21 Range/Units 23:29 AST (14-36) U/L Troponin I <0.012 (0.000-0.034) ng/mL Coagulation 10/30/21 Range/Units 17:28 PT 9.9 (9.0-12.0) sec APTT 22.0 (22.0-30.0) sec CBC 10/30/21 Range/Units 17:28 WBC 10.1 (3.8-10.6) k/uL RBC 4.90 (3.80-5.40) m/uL Hgb 11.1 L (11.4-16.0) gm/dL Hct 36.7 (34.0-46.0) % Plt Count 316 (150-450) k/uL Comprehensive Metabolic Panel 10/30/21 Range/Units 17:28 Sodium 136 L (137-145) mmol/L Potassium 4.5 (3.5-5.1) mmol/L Chloride 103 (98-107) mmol/L Carbon Dioxide 19 L (22-30) mmol/L BUN 19 H (7-17) mg/dL Creatinine 0.66 (0.52-1.04) mg/dL Glucose 247 H (74-99) mg/dL Calcium 9.8 (8.4-10.2) mg/dL AST 30 (14-36) U/L ALT 24 (4-34) U/L Alkaline Phosphatase 119 (38-126) U/L Total Protein 7.1 (6.3-8.2) g/dL Albumin 4.4 (3.5-5.0) g/dL Current Medications Generic Name Dose Route Start Last Admin Trade Name Freq PRN Reason Stop Dose Admin Albuterol Sulfate 2.5 mg 10/31/21 01:53 Albuterol Nebulized 2.5 Mg/3 Ml INHALATION RT-QID PRN Shortness Of Breath Aminophylline 100 mg 10/31/21 07:54 Aminophylline 500 Mg/20 Ml Vial IV 10/31/21 11:55 ONCE PRN Patient Response Aspirin 81 mg 10/31/21 09:00 Aspirin 81 Mg PO DAILY [facility] Atorvastatin Calcium 40 mg 10/31/21 21:00 Atorvastatin 40 Mg Tab PO HS [facility] Budesonide/Formoterol Fumarate 2 puff 10/31/21 08:00 Symbicort 80-4.5 Mcg Inhaler INHALATION RT-BID [facility] Caffeine Citrate 60 mg 10/31/21 07:54 Caffeine Citrate 60 Mg/3 Ml Vial IV 10/31/21 11:55 ONCE PRN Patient Response Diltiazem HCl 300 mg 10/31/21 09:00 Diltiazem Cd 300 Mg Cap.Er.24h PO DAILY [facility] Heparin Sodium (Porcine) 5,000 unit 10/31/21 08:00 Heparin Sodium,Porcine/Pf 5,000 Unit/0.5 Ml Syringe SQ Q8HR [facility] Insulin Aspart 20 unit 10/31/21 07:30 Insulin Aspart (Novolog) 100 Unit/Ml Vial SQ TID-W/MEALS [facility] Insulin Aspart 0 unit 10/31/21 07:30 Insulin Aspart (Novolog) 100 Unit/Ml Vial SQ ACHS [facility] Protocol Insulin Detemir 35 unit 10/31/21 21:00 Insulin Detemir (Levemir) 100 Unit/Ml Syr SQ HS [facility] Loratadine 10 mg 10/31/21 09:00 Loratadine 10 Mg Tab PO DAILY [facility] Losartan Potassium 50 mg 10/31/21 09:00 Losartan 50 Mg Tab PO BID [facility] Regadenoson 0.4 mg 10/31/21 07:54 Regadenoson 0.4 Mg/5 Ml Syringe IV 10/31/21 11:55 ONCE PRN Per Protocol Ropinirole HCl 4 mg 10/31/21 21:00 Ropinirole Hcl 4 Mg Tablet PO HS [facility] Intake and Output 10/30/21 10/31/21 10/31/21 22:59 06:59 14:59 Other: # Voids 1 Weight 113.398 kg 113.398 kg 10/30/21 17:28 10/30/21 17:28
[2021-10-31] MEDS ORDERED: TICAGRELOR 90 MG TAB PO SCH (09:00)
[2021-10-31] MEDS ORDERED: ASPIRIN 81 MG PO SCH (09:00)
[2021-10-31] MEDS ORDERED: LOSARTAN 50 MG TAB PO SCH (09:00)
[2021-10-31] MEDS ORDERED: ASPIRIN 325 MG TAB PO SCH (09:00)
[2021-10-31] MEDS ORDERED: DILTIAZEM CD 300 MG CAP.ER.24H PO SCH (09:00)
[2021-10-31] MEDS ORDERED: LORATADINE 10 MG TAB PO SCH (09:00)
[2021-10-31 09:05] LABS: Chol/HDL Ratio 3.51 Ratio; LDL Cholesterol,Calculated 60.9 mg/dL (0.0-131.0)
[2021-10-31 11:35] VITALS: PULSE 74
--- NOTE | 2021-10-31 11:38 | NM ---
EXAMINATION TYPE: NM stress lexiscan cardiolite DATE OF EXAM: 10/31/2021 COMPARISON: Prior exam 04/29/2020 HISTORY: Chest pain TECHNIQUE: After the intravenous administration of 10.3 mCi Tc 99m Sestamibi - Cardiolite resting SP ECT images acquired 60 minutes post injection. The patient received 0.4mg Lexiscan, 26.6 mCi Tc 99m Sestamibi - Stress images obtained [address] injection FINDINGS: Review of stress and rest SPECT images demonstrates some decreased uptake along the inferolateral lef t ventricle towards the cardiac apex more so on stress than on rest images. Gated analysis shows nor mal wall motion with an estimated left ventricular ejection fraction of 60 %. IMPRESSION: Findings may represent prior infarct along the inferolateral left ventricle with some braulio-infarct ph armacologically induced left ventricular myocardial ischemia.
[2021-10-31 11:42] LABS: Glucose,Whole Blood 144 mg/dL (70-110)
--- NOTE | 2021-10-31 12:45 | CA ---
Transthoracic Echo Report Name: Halima Mejia Age: 60 Gender: F : 1960 Exam Date: 10/31/2021 09:43 Exam Location: [facility] Ht (in): 58 Wt (lb): 250 Ordering Physician: Latrell Harkins MD ([id number]) Attending/Referring Phys: Tube Test Technician Angela Alexis RDCS Procedure CPT: Indications: CAD Cardiac Hx: Technical Quality: Poor Contrast 1: Total Dose (mL): Contrast 2: Total Dose (mL): MEASUREMENTS (Male / Female) Normal Values 2D ECHO LV Diastolic Diameter PLAX 6.3 cm 4.2 - 5.9 / 3.9 - 5.3 cm LV Systolic Diameter PLAX 4.6 cm IVS Diastolic Thickness 1.3 cm 0.6 - 1.0 / 0.6 - 0.9 cm LVPW Diastolic Thickness 1.3 cm 0.6 - 1.0 / 0.6 - 0.9 cm LV Relative Wall Thickness 0.4 RV Internal Dim ED PLAX 2.9 cm LA Systolic Diameter LX 3.7 cm 3.0 - 4.0 / 2.7 - 3.8 cm LA Volume 56.7 cm??? 18 - 58 / 22 - 52 cm??? M-MODE Aortic Root Diameter MM 3.8 cm MV E Point Septal Separation 0.8 cm AV Cusp Separation MM 2.5 cm DOPPLER AV Peak Velocity 174.4 cm/s AV Peak Gradient 12.2 mmHg MV Area PHT 3.5 cm??? Mitral E Point Velocity 107.7 cm/s Mitral A Point Velocity 105.6 cm/s Mitral E to A Ratio 1.0 MV Deceleration Time 217.0 ms MV E' Velocity 5.2 cm/s Mitral E to MV E' Ratio 20.7 FINDINGS Left Ventricle Left ventricular ejection fraction is estimated at 55-60%. Mildly dilated left ventricle, mild left ventricle hypertrophy Right Ventricle Normal right ventricular size and function. Unable to estimate the right ventricular systolic pressure. Right Atrium Normal right atrial size. Left Atrium Mildly increased left atrial volume. No evidence for an atrial septal defect. Mitral Valve Structurally normal mitral valve. No mitral stenosis, regurgitation or prolapse. Aortic Valve Aortic valve not well visualized. Tricuspid Valve Structurally normal tricuspid valve. Tricuspid valve not well visualized. Pulmonic Valve Pulmonic valve not well visualized. Pericardium Normal pericardium. No pericardial effusion. Aorta Mild aortic dilatation at the level of the sinuses of valsalva 38 mm CONCLUSIONS Technically difficult study. 1. Normal left ventricle size and systolic function 2. Valvular structures were not well visualized Previewed by: Dr. Latrell Harkins MD (Electronically Signed) Final Date: 31 October 2021 12:44
--- NOTE | 2021-10-31 12:47 | CA ---
Lexiscan Nuclear Stress Test Report Name: Halima Mejia Exam Date: 10/31/2021 09:27 Exam Location: [facility] Ht (in): 58 Wt (lb): 250 BSA: 2.00 Ordering Phys: Latrell Harkins MD Referring Phys: NANCY, Technologist: Jordan Jean-Baptiste Age: 60 Gender: F : 1960 Procedure CPT: Indications: Reflex order-Stress test ICD-10 Codes: Patient History: CHEST PAIN, DIFFICULTY IN BREATHING, HTN, DIABETES, ELEVATED CHOLESTEROL LEVELS, FAMILY HX, PRIOR CATH WITH 1 STENT, COPD, ASTHMA, Medications: Meds past 24 hrs: Pretest Chest Pain: STRESS TEST Lexiscan Protocol Exercise Duration (min:sec): 01:[address] Depressions (mm): Angina Score: Cao Score: Resting HR (bpm): 72 Peak HR (bpm): 87 Resting BP (mmHg): 169 / 83 Peak BP (mmHg): 169 / 83 MPHR: 158 Target HR: 134 % MPHR: 55 METS: 1.0 Total Dose: Peak Dose: Atropine: Double Product: 74067 BP Response: Stress Termination: INFUSION COMPLETE Stress Symptoms: HEADACHE,DIFFICULTY IN BREATHING Stress Summary: ECG ANALYSIS Resting ECG: Right bundle branch block. Stress ECG: No ECG changes from baseline with Lexiscan infusion. CONCLUSIONS No ECG evidence of ischemia with Lexiscan infusion. Nuclear test results to follow. Dr. Latrell Harkins MD (Electronically Signed) Final Date: 31 October 2021 12:46
--- NOTE | 2021-10-31 13:06 | P.DS ---
Providers Date of admission: 10/30/21 19:44 Expected date of discharge: 10/31/21 Attending physician: Regis Pantoja MD Consults: 10/30/21 19:44 Consult Physician Urgent Consulting Provider: Latrell Harkins Consult Reason/Comments: cp Do you want consulting provider notified?: Yes Primary care physician: León Martin MD Hospital Course: Discharge Diagnosis: Chest pain, acute coronary event ruled out. Insulin-dependent diabetes mellitus type 2 Hypertension Hyperlipidemia Hypertriglyceridemia COPD home oxygen dependent Obstructive sleep apnea, continue use of home CPAP nightly and while napping. GERD Hospital Course: Patient is a very pleasant 60 female with a past medical history of COPD home oxygen dependent 5 L at all times (patient reports she was previously on 3 L but after having Covid back in June has since been on 5 L without improvement), obstructive sleep apnea CPAP dependent nightly, CAD, hypertension, hyperlipidemia, GERD, Wade's esophagus, and TIA. She presented to the emergency department with a chief complaint of chest pain accompanied by shortness of breath. Patient reported pain radiated across his entire anterior chest and was described as sharp and sensation accompanied by increasing shortness of breath. She denied having any headache, lightheadedness, dizziness, palpitations, nausea, vomiting, or experiencing any numbness/tingling/weakness/swelling in her extremities. She underwent full evaluation in the emergency department. Chest x-ray completed revealing cardiomegaly with mild chronic parenchymal changes, negative for acute cardiopulmonary process. EKG was completed revealing normal sinus rhythm at 80 bpm with a right bundle branch block changed from previous EKG completed 09/07/21. CBC and CMP showing no significant abnormalities. Troponin negative at less than 0.012. D-dimer was elevated at 0.87 and CTA chest was completed which was negative for pulmonary emboli. Patient was admitted under our services with consultation to cardiology. Troponins trended and were all negative at less than 0.0123 draws. Patient had full resolution of chest pain. Cardiology taking for a stress test to evaluate for return of chest pain and/or any EKG or echocardiogram evidence of ischemia. Stress test revealing no EKG evidence of ischemia with Lexiscan infusion. Lexiscan stress test reviewed by parts classifier and reported to also be negative for any evidence of reversible ischemia showing prior infarct along the inferolateral left ventricle. Echocardiogram revealing preserved EF of 55-60% with mildly dilated left ventricle and mild left ventricular hypertrophy. Cardiology recommending outpatient follow-up in our office in 1 week. Patient is medically stable at this time in stable for discharge home. Lipid profile resulting with elevated triglycerides of 343.00 despite nightly atorvastatin 40 mg. Patient started on fenofibrate 160 mg daily. Physical examination: Patient seen and examined at bedside. Vital signs reviewed and stable. General: Nontoxic, no distress and appears stated age. Obese. Derm: Skin warm and dry, normal coloration for ethnicity. Head: Atraumatic, normocephalic and symmetric. Eyes: EOMs intact, no lid lag, and anicteric sclera Mouth: no lip lesions, mucus membranes moist Cardiovascular: regular rate and rhythm with normal S1S2, systolic murmur, positive posterior tibial pulses bilaterally, and cap refill < 2 seconds. Lungs: Respirations even, regular, and unlabored on 5 L O2 via nasal cannula. Lungs diminished with no rhonchi, no rales, no wheezing, and no accessory muscle usage. Abdominal: soft, nontender to palpation, no guarding, no appreciable organomegaly Ext: ROM intact. No gross muscle atrophy, no edema, no contractures Neuro: Speech clear, face symmetrical and CN II-XII grossly intact with no noted focal neuro deficits Psych: Alert and oriented to person, place, time, and situation. Appropriate and pleasant affect. A total of 37 minutes of time were spent preparing this complex discharge summar y. Pt was discharged on 10/31/21 at 1:04 PM I reviewed the documentation as provided by the ANABEL above, who is the original author of this note. I agree with the documented assessment and plan, with the following changes: none Patient Condition at Discharge: Stable Plan - Discharge Summary New Discharge Prescriptions: New Fenofibrate 160 mg PO DAILY 30 Days #30 tab Continue Loratadine [Claritin] 10 mg PO DAILY EPINEPHrine (Auto Inject) [Epipen] 0.3 mg IM ONCE PRN PRN Reason: Anaphylaxis Sennosides/Docusate Sodium [Senna Plus 8.6-50 mg Tablet] 1 tab PO BID PRN PRN Reason: Constipation Insulin Glargine,Hum.rec.anlog [Lantus Solostar Pen] 35 unit SQ HS Losartan [Cozaar] 50 mg PO BID Aspirin 81 mg PO DAILY 30 Days #30 chew Fluticasone Propion/Salmeterol [Wixela 250-50 Inhub] 1 puff INHALATION RT-BID Zinc 50 mg PO DAILY Ibuprofen/Pseudoephedrine HCl [Advil Cold & Sinus Caplet] 1 tab PO Q4H PRN PRN Reason: Cold Symptoms Ozempic 0.5mg/0.375ml 0.5 mg SQ MO Albuterol Inhaler [Ventolin Hfa Inhaler] 2 puff INHALATION RT-QID PRN PRN Reason: Shortness Of Breath dilTIAZem HCL [Cartia Xt] 300 mg PO DAILY Insulin Aspart [NovoLOG Flexpen] 20 units SQ TID-W/MEALS metFORMIN HCL [Glucophage] 1,000 mg PO BID Atorvastatin [Lipitor] 40 mg PO HS Echinacea 400 mg PO DAILY Cholecalciferol [Vitamin D3 (25 Mcg = 1000 Iu)] 50 mcg PO DAILY rOPINIRole HCL [Requip] 4 mg PO HS Power C Gummy 3 tab PO DAILY Miconazole Nitrate [Lotrimin AF Powder] 1 applic TOPICAL DAILY PRN PRN Reason: Groin/Abdominal Folds Acetaminophen [Tylenol 8 Hour] 1,300 mg PO Q8H PRN PRN Reason: Pain Discontinued Ticagrelor [Brilinta] 90 mg PO BID #60 tab Discharge Medication List Loratadine [Claritin] 10 mg PO DAILY 06/09/15 [History] EPINEPHrine (Auto Inject) [Epipen] 0.3 mg IM ONCE PRN 04/19/20 [History] Insulin Glargine,Hum.rec.anlog [Lantus Solostar Pen] 35 unit SQ HS 04/19/20 [History] Losartan [Cozaar] 50 mg PO BID 04/19/20 [History] Sennosides/Docusate Sodium [Senna Plus 8.6-50 mg Tablet] 1 tab PO BID PRN 04/19/20 [History] Aspirin 81 mg PO DAILY 30 Days #30 chew 05/02/20 [Rx] dilTIAZem HCL [Cartia Xt] 300 mg PO DAILY 07/14/20 [History] Fluticasone Propion/Salmeterol [Wixela 250-50 Inhub] 1 puff INHALATION RT-BID 07/14/21 [History] Insulin Aspart [NovoLOG Flexpen] 20 units SQ TID-W/MEALS 07/14/21 [History] Atorvastatin [Lipitor] 40 mg PO HS 07/30/21 [History] Cholecalciferol [Vitamin D3 (25 Mcg = 1000 Iu)] 50 mcg PO DAILY 07/30/21 [History] Echinacea 400 mg PO DAILY 07/30/21 [History] Ibuprofen/Pseudoephedrine HCl [Advil Cold & Sinus Caplet] 1 tab PO Q4H PRN 07/30/21 [History] Power C Gummy 3 tab PO DAILY 07/30/21 [History] Zinc 50 mg PO DAILY 07/30/21 [History] metFORMIN HCL [Glucophage] 1,000 mg PO BID 07/30/21 [History] rOPINIRole HCL [Requip] 4 mg PO HS 07/30/21 [History] Acetaminophen [Tylenol 8 Hour] 1,300 mg PO Q8H PRN 10/30/21 [History] Albuterol Inhaler [Ventolin Hfa Inhaler] 2 puff INHALATION RT-QID PRN 10/30/21 [History] Miconazole Nitrate [Lotrimin AF Powder] 1 applic TOPICAL DAILY PRN 10/30/21 [History] Ozempic 0.5mg/0.375ml 0.5 mg SQ MO 10/30/21 [History] Fenofibrate 160 mg PO DAILY 30 Days #30 tab 10/31/21 [Rx] Follow up Appointment(s)/Referral(s): Latrell Harkins MD [STAFF PHYSICIAN] - 11/06/21 10:15 am León Martin MD [Primary Care Provider] - 1-2 days Patient Instructions/Handouts: Chest Pain (GEN) Activity/Diet/Wound Care/Special Instructions: Activity: As tolerated. Take breaks as needed. Diet: Heart healthy and carb consistent diet. Avoid salts, or foods with hidden salts such as canned or boxed foods and frozen dinners. Extra salt makes your heart work harder and traps the fluid in your body for longer. Special Instructions: Take all of your medications as directed and remember to keep all of your doctor's appointments and follow-up as needed. Thank you for allowing us to participate in your care, it was truly a pleasure having you for our patient!!! Discharge Disposition: HOME SELF-CARE
[2021-10-31] MEDS ORDERED: INSULIN DETEMIR (LEVEMIR) 100 UNIT/ML SYR SQ SCH (21:00)
[2021-10-31] MEDS ORDERED: ATORVASTATIN 40 MG TAB PO SCH (21:00)
[2021-10-31] MEDS ORDERED: rOPINIRole HCL 4 MG TABLET PO SCH (21:00)
== END 2021-10-31 14:13 | disposition home or self-care (01) ==
LOC: EC 14:59 → 3SCARD 19:44 → 6NMEDSUR 20:16
PROVIDERS: ADMIT Internal Medicine; ATTEND Internal Medicine
DX: R07.89 Other chest pain (principal); I11.9 Hypertensive heart disease without heart failure; J44.9 Chronic obstructive pulmonary disease, unspecified; E11.9 Type 2 diabetes mellitus without complications; I25.10 Atherosclerotic heart disease of native coronary artery without angina pectoris; G47.33 Obstructive sleep apnea (adult) (pediatric); R79.89 Other specified abnormal findings of blood chemistry; I27.20 Pulmonary hypertension, unspecified; I45.10 Unspecified right bundle-branch block; E78.1 Pure hyperglyceridemia; K21.9 Gastro-esophageal reflux disease without esophagitis; D50.9 Iron deficiency anemia, unspecified; E78.5 Hyperlipidemia, unspecified; G40.909 Epilepsy, unspecified, not intractable, without status epilepticus; H91.90 Unspecified hearing loss, unspecified ear; G25.81 Restless legs syndrome; K76.0 Fatty (change of) liver, not elsewhere classified; K22.70 Barrett's esophagus without dysplasia; F90.9 Attention-deficit hyperactivity disorder, unspecified type; G43.909 Migraine, unspecified, not intractable, without status migrainosus; M19.90 Unspecified osteoarthritis, unspecified site; K58.9 Irritable bowel syndrome, unspecified; E73.9 Lactose intolerance, unspecified; R91.8 Other nonspecific abnormal finding of lung field; E66.9 Obesity, unspecified; Z68.43 Body mass index [BMI] 50.0-59.9, adult; F32.A Depression, unspecified; F41.9 Anxiety disorder, unspecified; Z77.22 Contact with and (suspected) exposure to environmental tobacco smoke (acute) (chronic); Z88.1 Allergy status to other antibiotic agents; Z91.030 Bee allergy status; Z88.5 Allergy status to narcotic agent; Z88.7 Allergy status to serum and vaccine; Z91.048 Other nonmedicinal substance allergy status; Z79.4 Long term (current) use of insulin; Z79.84 Long term (current) use of oral hypoglycemic drugs; Z79.82 Long term (current) use of aspirin; Z79.02 Long term (current) use of antithrombotics/antiplatelets; Z79.899 Other long term (current) drug therapy; Z86.73 Personal history of transient ischemic attack (TIA), and cerebral infarction without residual deficits; Z87.442 Personal history of urinary calculi; Z97.4 Presence of external hearing-aid; Z86.16 Personal history of COVID-19; Z90.49 Acquired absence of other specified parts of digestive tract; Z90.710 Acquired absence of both cervix and uterus; Z98.890 Other specified postprocedural states; Z95.5 Presence of coronary angioplasty implant and graft; Z99.81 Dependence on supplemental oxygen; Z82.49 Family history of ischemic heart disease and other diseases of the circulatory system; Z82.5 Family history of asthma and other chronic lower respiratory diseases; Z80.0 Family history of malignant neoplasm of digestive organs
CPT/HCPCS: 96372; 99285; 36415; 94640 ×2; 93005; 93017; 93306; 85379; 83880; 80061; 80053; 83735; 84484; 85025; 85610; 85730; 71046; 71275; 78452; G0378 ×2; A9500; J2785; Q9967; J1644

== ENCOUNTER 2021-11-14 16:49 | Emergency (ER) | payer OTHER ==
[2021-11-14 17:00] VITALS: RESP 18
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
[2021-11-14 18:52] LABS: African American GFR (CKD) >90 (>60 ml/min/1.73 sqM); Anion Gap 10 mmol/L; Blood Urea Nitrogen 16 mg/dL (7-17); Calcium 9.2 mg/dL (8.4-10.2); Carbon Dioxide 22 mmol/L (22-30); Chloride 101 mmol/L (98-107); Glucose 281 mg/dL (74-99); Magnesium 1.6 mg/dL (1.6-2.3); Non-African American GFR(CKD) >90 (>60 ml/min/1.73 sqM); Potassium 5.3 mmol/L (3.5-5.1); Sodium 133 mmol/L (137-145)
[2021-11-14 18:58] LABS: Anisocytosis Slight; Basophils # (A) 0.1 k/uL (0-0.2); Basophils % (A) 1 %; Eosinophils # (A) 0.2 k/uL (0-0.7); Eosinophils % (A) 2 %; HCT 36.3 % (34.0-46.0); HGB 11.6 gm/dL (11.4-16.0); Hypochromasia Moderate; Lymphocytes % (A) 22 %; MCH 24.5 pg (25.0-35.0); MCHC 31.9 g/dL (31.0-37.0); MCV 76.7 fL (80.0-100.0); Mean Platelet Volume 7.3; Microcytosis Slight; Monocytes # (A) 0.4 k/uL (0-1.0); Monocytes % (A) 4 %; Neutrophils # (A) 6.4 k/uL (1.3-7.7); Neutrophils % (A) 70 %; Platelet Count 265 k/uL (150-450); RBC 4.74 m/uL (3.80-5.40); RDW 16.8 % (11.5-15.5); WBC 9.2 k/uL (3.8-10.6)
[2021-11-14 20:46] VITALS: BP 154/68; PULSE 80; TEMP 98.2
== END 2021-11-14 20:46 | disposition home or self-care (01) ==
LOC: EC 16:49
DX: S16.1XXA Strain of muscle, fascia and tendon at neck level, initial encounter (principal); M54.12 Radiculopathy, cervical region; E11.65 Type 2 diabetes mellitus with hyperglycemia; E87.5 Hyperkalemia; J44.9 Chronic obstructive pulmonary disease, unspecified; E11.9 Type 2 diabetes mellitus without complications; K21.9 Gastro-esophageal reflux disease without esophagitis; E78.5 Hyperlipidemia, unspecified; E03.9 Hypothyroidism, unspecified; Z88.8 Allergy status to other drugs, medicaments and biological substances; Z88.4 Allergy status to anesthetic agent; Z88.7 Allergy status to serum and vaccine; Z88.5 Allergy status to narcotic agent; Z88.6 Allergy status to analgesic agent; Z77.22 Contact with and (suspected) exposure to environmental tobacco smoke (acute) (chronic); Z91.030 Bee allergy status; Z91.09 Other allergy status, other than to drugs and biological substances; Z79.899 Other long term (current) drug therapy; Z79.84 Long term (current) use of oral hypoglycemic drugs; Z79.4 Long term (current) use of insulin; Z79.51 Long term (current) use of inhaled steroids; V89.2XXA Person injured in unspecified motor-vehicle accident, traffic, initial encounter
CPT/HCPCS: 36415; 72125; 80048; 83735; 85025; 99284

== ENCOUNTER 2022-03-13 14:48 | Inpatient (IN) | payer OTHER, MEDICARE ==
--- NOTE | 2022-03-13 17:11 | XR ---
EXAMINATION TYPE: XR chest 2V DATE OF EXAM: 03/13/2022 COMPARISON: 10/30/2021 HISTORY: Cough TECHNIQUE: FINDINGS: Heart size is normal. No heart failure. There is some pleural thickening and infiltrate in the right middle lobe and lingula left upper lobe. This appears increased compared to old exam. No he art failure. No pleural effusion. Bony thorax is intact. IMPRESSION: There is some pleural thickening and mild infiltrate in the right middle lobe and lingula left upper lobe increased compared to old exam.
[2022-03-13 17:36] LABS: Basophils # (A) 0.1 k/uL (0-0.2); Basophils % (A) 0 %; Eosinophils # (A) 0.3 k/uL (0-0.7); Eosinophils % (A) 2 %; HCT 37.3 % (34.0-46.0); HGB 12.5 gm/dL (11.4-16.0); Lymphocytes # (A) 1.8 k/uL (1.0-4.8); Lymphocytes % (A) 12 %; MCHC 33.6 g/dL (31.0-37.0); MCV 77.3 fL (80.0-100.0); Mean Platelet Volume 8.1; Microcytosis Slight; Monocytes # (A) 0.5 k/uL (0-1.0); Monocytes % (A) 3 %; Neutrophils # (A) 12.2 k/uL (1.3-7.7); Neutrophils % (A) 81 %; Platelet Count 308 k/uL (150-450); RBC 4.83 m/uL (3.80-5.40)
[2022-03-13 17:51] LABS: ALT 18 U/L (4-34); AST 26 U/L (14-36); African American GFR (CKD) >90 (>60 ml/min/1.73 sqM); Albumin 4.1 g/dL (3.5-5.0); Alkaline Phosphatase 144 U/L (38-126); Anion Gap 11 mmol/L; Blood Urea Nitrogen 14 mg/dL (7-17); Calcium 8.5 mg/dL (8.4-10.2); Carbon Dioxide 20 mmol/L (22-30); Chloride 99 mmol/L (98-107); Glucose 351 mg/dL (74-99); Magnesium 1.8 mg/dL (1.6-2.3); Non-African American GFR(CKD) 88 (>60 ml/min/1.73 sqM); Sodium 130 mmol/L (137-145); Total Bilirubin 0.8 mg/dL (0.2-1.3)
[2022-03-13] MEDS ORDERED: LEVOFLOXACIN 750MG-D5W PMX 750 MG in DEXTROSE/WATER 1 150ML.BAG IVPB STA (18:31)
[2022-03-13] MEDS ORDERED: NALOXONE 0.4 MG/ML 1 ML VIAL IV PRN (18:38)
--- NOTE | 2022-03-13 18:45 | ED ---
General Adult HPI - General Chief complaint: Shortness of Breath Stated complaint: MARTHA Time Seen by Provider: 03/13/22 17:08 Source: patient Mode of arrival: ambulatory Limitations: no limitations - History of Present Illness Initial comments: This is a 61-year-old female with an extensive past medical history including COPD, asthma, emphysema, pulmonary hypertension, hypertension and diabetes presents emergency department for increasing cough and fatigue. The patient did state that she to productive cough with brown sputum over the last 1 week that had not been improving. The patient stated that she was increasingly fatigued yesterday but stated that she was so tired that she did not want to come to the emergency department. The patient stated that she felt slightly better today she came and wanted to be evaluated. The patient stated that she has had pneumonia approximately 16 times in the past and it does feel like this again. The patient denied any other acute pain or complaints and denied any fevers and chills. The patient was resting in bed comfortably without any acute distress. - Related Data Home Medications Medication Instructions Recorded Confirmed Loratadine [Claritin] 10 mg PO DAILY 06/09/15 10/30/21 EPINEPHrine (Auto Inject) [Epipen] 0.3 mg IM ONCE PRN 04/19/20 10/30/21 Insulin Glargine,Hum.rec.anlog 35 unit SQ HS 04/19/20 10/30/21 [Lantus Solostar Pen] Losartan [Cozaar] 50 mg PO BID 04/19/20 10/30/21 Sennosides/Docusate Sodium [Senna 1 tab PO BID PRN 04/19/20 10/30/21 Plus 8.6-50 mg Tablet] dilTIAZem HCL [Cartia Xt] 300 mg PO DAILY 07/14/20 10/30/21 Fluticasone Propion/Salmeterol 1 puff INHALATION RT-BID 07/14/21 10/30/21 [Wixela 250-50 Inhub] Insulin Aspart [NovoLOG Flexpen] 20 units SQ TID-W/MEALS 07/14/21 10/30/21 Atorvastatin [Lipitor] 40 mg PO HS 07/30/21 10/30/21 Cholecalciferol [Vitamin D3 (25 50 mcg PO DAILY 07/30/21 10/30/21 Mcg = 1000 Iu)] Echinacea 400 mg PO DAILY 07/30/21 10/30/21 Ibuprofen/Pseudoephedrine HCl 1 tab PO Q4H PRN 07/30/21 10/30/21 [Advil Cold & Sinus Caplet] Power C Gummy 3 tab PO DAILY 07/30/21 10/30/21 Zinc 50 mg PO DAILY 07/30/21 10/30/21 metFORMIN HCL [Glucophage] 1,000 mg PO BID 07/30/21 10/30/21 rOPINIRole HCL [Requip] 4 mg PO HS 07/30/21 10/30/21 Acetaminophen [Tylenol 8 Hour] 1,300 mg PO Q8H PRN 10/30/21 10/30/21 Albuterol Inhaler [Ventolin Hfa 2 puff INHALATION RT-QID PRN 10/30/21 10/30/21 Inhaler] Miconazole Nitrate [Lotrimin AF 1 applic TOPICAL DAILY PRN 10/30/21 10/30/21 Powder] Ozempic 0.5mg/0.375ml 0.5 mg SQ MO 10/30/21 10/30/21 Previous Rx's Medication Instructions Recorded Aspirin 81 mg PO DAILY 30 Days #30 chew 05/02/20 Fenofibrate 160 mg PO DAILY 30 Days #30 tab 10/31/21 methylPREDNISolone Dose Pack 4 mg PO DIRECTED #21 tab 11/14/21 [Medrol Dose Pack] Allergies Allergy/AdvReac Type Severity Reaction Status Date / Time ammonia Allergy Dyspnea & Verified 11/14/21 17:00 Passed Out atenolol Allergy Dyspnea, Verified 03/13/22 16:17 Migraine cephalexin [From Keflex] Allergy Dyspnea Verified 03/13/22 16:17 diphtheria,pertussis Allergy Dyspnea & Verified 03/13/22 16:17 (acellular),te Heart [From Boostrix Tdap] Palpitations & Nausea dulaglutide [From Trulicity] Allergy Dyspnea Verified 03/13/22 16:17 exenatide [From Byetta] Allergy Unknown Verified 03/13/22 16:17 feathers Allergy Anaphylaxis Verified 03/13/22 16:17 guaifenesin Allergy Dyspnea Verified 03/13/22 16:17 influenza virus vaccine, Allergy Dyspnea & Verified 03/13/22 16:17 specific Heart Palpitations & Nausea meperidine [From Demerol] Allergy Hives, Verified 03/13/22 16:17 Rash, Hypotension meperidine HCl [From Demerol] Allergy Anaphylaxis Verified 03/13/22 16:17 mint Allergy Anaphylaxis Verified 03/13/22 16:17 mold Allergy Anaphylaxis Verified 03/13/22 16:17 nifedipine [From Procardia] Allergy Unknown Verified 03/13/22 16:17 pneumococcal vaccine Allergy Dyspnea & Verified 03/13/22 16:17 Heart Palpitations & Nausea simvastatin [From Zocor] Allergy Muscle/Joint Verified 03/13/22 16:17 Pain venom-honey bee Allergy Anaphylaxis Verified 03/13/22 16:17 [bee venom (honey bee)] wool Allergy Anaphylaxis Verified 03/13/22 16:17 zolpidem [From Ambien] Allergy Dyspnea, Verified 03/13/22 16:17 Migraine zolpidem tartrate Allergy Dyspnea, Verified 03/13/22 16:17 [From Ambien] Migraine zoster vaccine live Allergy Dyspnea & Verified 03/13/22 16:17 Heart Palpitations & Nausea amlodipine AdvReac Headache Verified 03/13/22 16:17 barium sulfate AdvReac rectal Verified 03/13/22 16:17 bleeding diphenhydramine AdvReac Hypertensio Verified 03/13/22 16:17 n fexofenadine [From Elena] AdvReac Migraine Verified 03/13/22 16:17 fexofenadine HCl AdvReac Muscle Pain Verified 03/13/22 16:17 [From Elena] fluoxetine AdvReac "Feeling Verified 03/13/22 16:17 Irritable" fluvastatin AdvReac Muscle Pain Verified 03/13/22 16:17 hydrochlorothiazide AdvReac Tachycardia Verified 03/13/22 16:17 isosorbide [From Imdur] AdvReac Migraine Verified 03/13/22 16:17 lisinopril AdvReac Fatigue, Verified 03/13/22 16:17 Cough modafinil AdvReac Headache Verified 03/13/22 16:17 nitroglycerin AdvReac Dizziness Verified 03/13/22 16:17 ondansetron [From Zofran] AdvReac Nausea Verified 03/13/22 16:17 paroxetine [From Paxil] AdvReac "Depression Verified 03/13/22 16:17 " paroxetine HCl [From Paxil] AdvReac "Depressed" Verified 03/13/22 16:17 sertraline HCl [From Zoloft] AdvReac Fatigue Verified 03/13/22 16:17 Vvavrvw-VPI-EoT Reductase AdvReac Muscle/Joint Verified 03/13/22 16:17 Inhibitor Pain [Lalogri-Crt-Rzv Reductase Inhibitor] sumatriptan AdvReac Palpitation Verified 03/13/22 16:17 s venlafaxine [From Effexor] AdvReac Tachycardia Verified 03/13/22 16:17 hay Allergy Dyspnea Uncoded 03/13/22 16:17 lysol Allergy Dyspnea Uncoded 03/13/22 16:17 Review of Systems ROS Statement: Those systems with pertinent positive or pertinent negative responses have been documented in the HPI. ROS Other: All systems not noted in ROS Statement are negative. Past Medical History Past Medical History: Asthma, COPD, CVA/TIA, Diabetes Mellitus, GERD/Reflux, Hearing Disorder / Deafness, Hyperlipidemia, Hypertension, Seizure Disorder, Sleep Apnea/CPAP/BIPAP, Thyroid Disorder Additional Past Medical History / Comment(s): additional hx: right bundle branch block,barretts esophagus, migraines, deanna hearing aids, lung nodules, fatty liver, pulmonary hypertension, heart murmur,obesity, IBS, RLS, arthritis, ADHD, DJD, anemia, lactose intolerance; last seizure 21 years ago, kidney stones x2, covid 07/08 History of Any Multi-Drug Resistant Organisms: None Reported Date of last positivie culture/infection: November 2020 MDRO Source:: Abdomen Past Surgical History: Bowel Resection, Cholecystectomy, Hysterectomy Additional Past Surgical History / Comment(s): breast biopsy,esophageal surgery - 2002, Colostomy Apr 2020, colostomy reversed october 2020 Past Anesthesia/Blood Transfusion Reactions: No Reported Reaction Additional Past Anesthesia/Blood Transfusion Reaction / Comment(s): gets nauseous at times. Past Psychological History: Anxiety, Depression Smoking Status: Second hand smoke exposure Past Alcohol Use History: None Reported Past Drug Use History: None Reported - Past Family History Mother History Unknown: Yes Family Medical History: Congestive Heart Failure (CHF), Myocardial Infarction ([place]) Additional Family Medical History / Comment(s): 77 Father History Unknown: Yes Family Medical History: COPD, Myocardial Infarction ([place]) Additional Family Medical History / Comment(s): at 56 Sister(s) History Unknown: Yes Family Medical History: Myocardial Infarction ([place]) Additional Family Medical History / Comment(s): at 56 Brother(s) Family Medical History: Cancer Additional Family Medical History / Comment(s): colon cancer General Exam Limitations: no limitations General appearance: alert, in no apparent distress, obese Head exam: Present: atraumatic, normocephalic Eye exam: Present: normal appearance, PERRL Pupils: Present: normal accommodation ENT exam: Present: normal exam, normal oropharynx, mucous membranes moist Neck exam: Present: normal inspection, full ROM Respiratory exam: Present: normal lung sounds bilaterally Cardiovascular Exam: Present: regular rate, normal rhythm, normal heart sounds GI/Abdominal exam: Present: soft, normal bowel sounds Extremities exam: Present: normal inspection, full ROM, pedal edema Back exam: Present: normal inspection, full ROM Neurological exam: Present: alert, oriented X3, CN II-XII intact Psychiatric exam: Present: normal affect, normal mood Skin exam: Present: warm, dry Course Vital Signs 03/13/22 16:14 Temperature 98.9 F Pulse Rate 90 Respiratory 22 Rate Blood Pressure 145/65 O2 Sat by Pulse 94 L Oximetry Medical Decision Making - Medical Decision Making The patient seen and evaluated in the emergency department. Physical exam, the patient was resting in bed without any acute distress. Vital signs admission were stable and within normal limits. The patient was resting in bed not requiring any oxygen at this time. Laboratory workup was obtained and showed a mild elevated white blood cell count at 15. The patient's laboratory workup was otherwise within normal limits. Chest x-ray was read and reviewed by myself and showed a pleural thickening and mild infiltrate in the right middle lobe and lingula of the left upper lobe looks increased compared to the old exam. Due to the patient's significant pulmonary history in the setting of elevated white blood cell count and 1 week of symptoms, the patient be treated for Kimme[place] acquired pneumonia. Due to the patient's many ALLERGIES, the patient was started on IV Levaquin in the emergency department and would require observation admission for IV antibiotics. The patient was told this plan and was agreeable. The patient has a primary care physician at the [facility] and therefore will be admitted by Dr. Walton, [facility] physicians. The patient remained stable and was admitted in stable condition. - Lab Data Result diagrams: 03/13/22 17:31 03/13/22 17:31 Lab Results 03/13/22 03/13/22 03/13/22 Range/Units 16:20 16:20 17:31 WBC 15.0 H (3.8-10.6) k/uL RBC 4.83 (3.80-5.40) m/uL Hgb 12.5 (11.4-16.0) gm/dL Hct 37.3 (34.0-46.0) % MCV 77.3 L (80.0-100.0) fL MCH 26.0 (25.0-35.0) pg MCHC 33.6 (31.0-37.0) g/dL RDW 15.0 (11.5-15.5) % Plt Count 308 (150-450) k/uL MPV 8.1 Neutrophils % 81 % Lymphocytes % 12 % Monocytes % 3 % Eosinophils % 2 % Basophils % 0 % Neutrophils # 12.2 H (1.3-7.7) k/uL Lymphocytes # 1.8 (1.0-4.8) k/uL Monocytes # 0.5 (0-1.0) k/uL Eosinophils # 0.3 (0-0.7) k/uL Basophils # 0.1 (0-0.2) k/uL Microcytosis Slight Sodium (137-145) mmol/L Potassium (3.5-5.1) mmol/L Chloride (98-107) mmol/L Carbon Dioxide (22-30) mmol/L Anion Gap mmol/L BUN (7-17) mg/dL Creatinine (0.52-1.04) mg/dL Est GFR (CKD-EPI)AfAm (>60 ml/min/1.73 sqM) Est GFR (CKD-EPI)NonAf (>60 ml/min/1.73 sqM) Glucose (74-99) mg/dL Calcium (8.4-10.2) mg/dL Magnesium (1.6-2.3) mg/dL Total Bilirubin (0.2-1.3) mg/dL AST (14-36) U/L ALT (4-34) U/L Alkaline Phosphatase (38-126) U/L Troponin I (0.000-0.034) ng/mL NT-Pro-B Natriuret Pep pg/mL Total Protein (6.3-8.2) g/dL Albumin (3.5-5.0) g/dL Coronavirus (PCR) Not Detected (Not Detectd) Influenza Type A RNA Not Detected (Not Detectd) Influenza Type B (PCR) Not Detected (Not Detectd) 03/13/22 03/13/22 03/13/22 Range/Units 17:31 17:31 17:31 WBC (3.8-10.6) k/uL RBC (3.80-5.40) m/uL Hgb (11.4-16.0) gm/dL Hct (34.0-46.0) % MCV (80.0-100.0) fL MCH (25.0-35.0) pg MCHC (31.0-37.0) g/dL RDW (11.5-15.5) % Plt Count (150-450) k/uL MPV Neutrophils % % Lymphocytes % % Monocytes % % Eosinophils % % Basophils % % Neutrophils # (1.3-7.7) k/uL Lymphocytes # (1.0-4.8) k/uL Monocytes # (0-1.0) k/uL Eosinophils # (0-0.7) k/uL Basophils # (0-0.2) k/uL Microcytosis Sodium 130 L (137-145) mmol/L Potassium 5.0 (3.5-5.1) mmol/L Chloride 99 (98-107) mmol/L Carbon Dioxide 20 L (22-30) mmol/L Anion Gap 11 mmol/L BUN 14 (7-17) mg/dL Creatinine 0.73 (0.52-1.04) mg/dL Est GFR (CKD-EPI)AfAm >90 (>60 ml/min/1.73 sqM) Est GFR (CKD-EPI)NonAf 88 (>60 ml/min/1.73 sqM) Glucose 351 H (74-99) mg/dL Calcium 8.5 (8.4-10.2) mg/dL Magnesium 1.8 (1.6-2.3) mg/dL Total Bilirubin 0.8 (0.2-1.3) mg/dL AST 26 (14-36) U/L ALT 18 (4-34) U/L Alkaline Phosphatase 144 H (38-126) U/L Troponin I <0.012 (0.000-0.034) ng/mL NT-Pro-B Natriuret Pep 199 pg/mL Total Protein 7.0 (6.3-8.2) g/dL Albumin 4.1 (3.5-5.0) g/dL Coronavirus (PCR) (Not Detectd) Influenza Type A RNA (Not Detectd) Influenza Type B (PCR) (Not Detectd) Disposition Clinical Impression: Community acquired bacterial pneumonia, COPD (chronic obstructive pulmonary disease) Disposition: ADMITTED IP TO THIS [facility] Condition: Stable Is patient prescribed a controlled substance at d/c from ED?: No Referrals: Nonstaff,Physician [Primary Care Provider] - 1-2 days Time of Disposition: 18:36 Decision to Admit Reason: Admit from EC Decision Date: 03/13/22 Decision Time: 18:36
[2022-03-13 20:15] LABS: Appearance,Urine Cloudy (Clear); Bacteria,Urine Rare /hpf; Bilirubin,Urine Negative (Negative); Blood,Urine Trace (Negative); Color,Urine Yellow; Glucose,Urine (UA) 4+ (Negative); Ketones,Urine Trace (Negative); Leukocyte Esterase,Urine Moderate (Negative); Mucus,Urine Few /hpf; Nitrite,Urine Negative (Negative); PH, Urine 5.5 (5.0-8.0); Protein,Urine 2+ (Negative); RBC,Urine 12 /hpf (0-5); Specific Gravity,Urine 1.041 (1.001-1.035); Squamous Epithelial Cell,Urine 18 /hpf (0-4); Urobilinogen,Urine <2.0 mg/dL (<2.0); WBC,Urine 35 /hpf (0-5)
[2022-03-13 20:42] LABS: Glucose,Whole Blood 390 mg/dL (70-110)
[2022-03-13] MEDS ORDERED: ACETAMINOPHEN TAB 325 MG TAB PO PRN (21:04)
[2022-03-13] MEDS ORDERED: ALBUTEROL NEBULIZED 2.5 MG/3 ML INHALATION PRN (21:04)
[2022-03-13] MEDS: LOSARTAN 50 MG TAB PO SCH (22:46)
[2022-03-13] MEDS: INSULIN ASPART (NovoLOG) 100 UNIT/ML VIAL SQ SCH (22:46)
[2022-03-13] MEDS: ATORVASTATIN 40 MG TAB PO SCH (22:46)
[2022-03-13] MEDS: rOPINIRole HCL 4 MG TABLET PO SCH (22:47)
[2022-03-13] MEDS: INSULIN DETEMIR (LEVEMIR) 100 UNIT/ML SYR SQ SCH (22:47)
--- NOTE | 2022-03-14 03:13 | P.HPIM ---
History of Present Illness H&P Date: 03/13/22 Chief Complaint: productive cough 61 year old female with COPD on 2 L home oxygen , hypertension , DM , TERRIE patient comes in due to 1 week history of progressive SOB, with productive cough of brownish sputum , associated with fever, chills, and chest discomfort pleuritic in nature she is known to have frequent episodes of pneumonia , she estimates 16 episodes of pneumonia in the past year. she denies any recent travel or hospital stay , denies any known sick contacts. she claims to be complaint with her meds. denies any tobacco smoking, illicit drugs or alcohol workup in the ED , showed elevated WBC, CXR showed right mid lobe infiltrates and left lingula infiltrates Review of Systems Pertinent positives as noted in HPI. All other systems were reviewed and are negative Past Medical History Past Medical History: Asthma, Coronary Artery Disease (CAD), Heart Failure, COPD, CVA/TIA, Diabetes Mellitus, GERD/Reflux, Hearing Disorder / Deafness, Hyperlipidemia, Hypertension, Myocardial Infarction (NE), Osteoarthritis (OA), Pneumonia, Seizure Disorder, Sleep Apnea/CPAP/BIPAP, Thyroid Disorder Additional Past Medical History / Comment(s): additional hx: right bundle branch block,barretts esophagus, migraines, deanna hearing aids, lung nodules, fatty liver, pulmonary hypertension, heart murmur,obesity, IBS, RLS, arthritis, ADHD, DJD, anemia, lactose intolerance; last seizure 21 years ago, kidney stones x2, covid 07/08; CHF; TIA in 2019; two heart attacks 2011 and 2018 Last Myocardial Infarction Date:: History of Any Multi-Drug Resistant Organisms: None Reported Date of last positivie culture/infection: November 2020 MDRO Source:: Abdomen Past Surgical History: Bowel Resection, Cholecystectomy, Heart Catheterization With Stent, Hysterectomy Additional Past Surgical History / Comment(s): breast biopsy,esophageal surgery - 2002, Colostomy Apr 2020, colostomy reversed october 2020 Past Anesthesia/Blood Transfusion Reactions: Postoperative Nausea & Vomiting (PONV) Additional Past Anesthesia/Blood Transfusion Reaction / Comment(s): gets nauseous at times; patient has had blood transfusions without no reactions Date of Last Stent Placement:: 08/01/2018 Past Psychological History: Anxiety, Depression Smoking Status: Never smoker Past Alcohol Use History: None Reported Past Drug Use History: None Reported - Past Family History Mother History Unknown: Yes Family Medical History: Congestive Heart Failure (CHF), Myocardial Infarction (NE) Additional Family Medical History / Comment(s): 77 Father History Unknown: Yes Family Medical History: COPD, Myocardial Infarction (NE) Additional Family Medical History / Comment(s): at 56 Sister(s) History Unknown: Yes Family Medical History: Myocardial Infarction (NE) Additional Family Medical History / Comment(s): at 56 Brother(s) Family Medical History: Cancer Additional Family Medical History / Comment(s): colon cancer Medications and Allergies Home Medications Medication Instructions Recorded Confirmed Type Loratadine [Claritin] 10 mg PO DAILY 06/09/15 03/13/22 History EPINEPHrine (Auto Inject) [Epipen] 0.3 mg IM ONCE PRN 04/19/20 03/13/22 History Insulin Glargine,Hum.rec.anlog 35 unit SQ HS 04/19/20 03/13/22 History [Lantus Solostar Pen] Losartan [Cozaar] 50 mg PO BID 04/19/20 03/13/22 History Sennosides/Docusate Sodium [Senna 1 tab PO BID PRN 04/19/20 03/13/22 History Plus 8.6-50 mg Tablet] Aspirin 81 mg PO DAILY 30 Days #30 chew 05/02/20 03/13/22 Rx dilTIAZem HCL [Cartia Xt] 300 mg PO DAILY 07/14/20 03/13/22 History Fluticasone Propion/Salmeterol 1 puff INHALATION RT-BID 07/14/21 03/13/22 History [Wixela 250-50 Inhub] Insulin Aspart [NovoLOG Flexpen] 25 units SQ TID-W/MEALS 07/14/21 03/13/22 History Atorvastatin [Lipitor] 40 mg PO HS 07/30/21 03/13/22 History Cholecalciferol [Vitamin D3 (25 50 mcg PO DAILY 07/30/21 03/13/22 History Mcg = 1000 Iu)] Echinacea 400 mg PO DAILY 07/30/21 03/13/22 History Power C Gummy 3 tab PO DAILY 07/30/21 03/13/22 History metFORMIN HCL [Glucophage] 1,000 mg PO BID 07/30/21 03/13/22 History rOPINIRole HCL [Requip] 4 mg PO HS 07/30/21 03/13/22 History Acetaminophen [Tylenol 8 Hour] 1,300 mg PO Q8H PRN 10/30/21 03/13/22 History Albuterol Inhaler [Ventolin Hfa 2 puff INHALATION RT-QID PRN 10/30/21 03/13/22 History Inhaler] Miconazole Nitrate [Lotrimin AF 1 applic TOPICAL DAILY PRN 10/30/21 03/13/22 History Powder] Ozempic 0.5mg/0.375ml 0.5 mg SQ MO 10/30/21 03/13/22 History Dextrose Chew [Glucose Chew Tab] 4 gm PO TID PRN 03/13/22 03/13/22 History Ferrous Sulfate [Feosol] 325 mg PO DAILY 03/13/22 03/13/22 History Allergies Allergy/AdvReac Type Severity Reaction Status Date / Time ammonia Allergy Dyspnea & Verified 03/13/22 20:52 Passed Out atenolol Allergy Dyspnea, Verified 03/13/22 20:52 Migraine cephalexin [From Keflex] Allergy Dyspnea Verified 03/13/22 20:52 diphtheria,pertussis Allergy Dyspnea & Verified 03/13/22 20:52 (acellular),te Heart [From Boostrix Tdap] Palpitations & Nausea dulaglutide [From Trulicity] Allergy Dyspnea Verified 03/13/22 20:52 exenatide [From Byetta] Allergy Unknown Verified 03/13/22 20:52 feathers Allergy Anaphylaxis Verified 03/13/22 20:52 guaifenesin Allergy Dyspnea Verified 03/13/22 20:52 influenza virus vaccine, Allergy Dyspnea & Verified 03/13/22 20:52 specific Heart Palpitations & Nausea meperidine [From Demerol] Allergy Hives, Verified 03/13/22 20:52 Rash, Hypotension meperidine HCl [From Demerol] Allergy Anaphylaxis Verified 03/13/22 20:52 mint Allergy Anaphylaxis Verified 03/13/22 20:52 mold Allergy Anaphylaxis Verified 03/13/22 20:52 nifedipine [From Procardia] Allergy Unknown Verified 03/13/22 20:52 pneumococcal vaccine Allergy Dyspnea & Verified 03/13/22 20:52 Heart Palpitations & Nausea simvastatin [From Zocor] Allergy Muscle/Joint Verified 03/13/22 20:52 Pain venom-honey bee Allergy Anaphylaxis Verified 03/13/22 20:52 [bee venom (honey bee)] wool Allergy Anaphylaxis Verified 03/13/22 20:52 zolpidem [From Ambien] Allergy Dyspnea, Verified 03/13/22 20:52 Migraine zolpidem tartrate Allergy Dyspnea, Verified 03/13/22 20:52 [From Ambien] Migraine zoster vaccine live Allergy Dyspnea & Verified 03/13/22 20:52 Heart Palpitations & Nausea amlodipine AdvReac Headache Verified 03/13/22 20:52 barium sulfate AdvReac rectal Verified 03/13/22 20:52 bleeding diphenhydramine AdvReac Hypertensio Verified 03/13/22 20:52 n fexofenadine [From Elena] AdvReac Migraine Verified 03/13/22 20:52 fexofenadine HCl AdvReac Muscle Pain Verified 03/13/22 20:52 [From Elena] fluoxetine AdvReac "Feeling Verified 03/13/22 20:52 Irritable" fluvastatin AdvReac Muscle Pain Verified 03/13/22 20:52 hydrochlorothiazide AdvReac Tachycardia Verified 03/13/22 20:52 isosorbide [From Imdur] AdvReac Migraine Verified 03/13/22 20:52 lisinopril AdvReac Fatigue, Verified 03/13/22 20:52 Cough modafinil AdvReac Headache Verified 03/13/22 20:52 nitroglycerin AdvReac Dizziness Verified 03/13/22 20:52 ondansetron [From Zofran] AdvReac Nausea Verified 03/13/22 20:52 paroxetine [From Paxil] AdvReac "Depression Verified 03/13/22 20:52 " paroxetine HCl [From Paxil] AdvReac "Depressed" Verified 03/13/22 20:52 sertraline HCl [From Zoloft] AdvReac Fatigue Verified 03/13/22 20:52 Pgyzoey-XLX-ZcW Reductase AdvReac Muscle/Joint Verified 03/13/22 20:52 Inhibitor Pain [Kwygqrn-Lgs-Snw Reductase Inhibitor] sumatriptan AdvReac Palpitation Verified 03/13/22 20:52 s venlafaxine [From Effexor] AdvReac Tachycardia Verified 03/13/22 20:52 hay Allergy Dyspnea Uncoded 03/13/22 16:17 lysol Allergy Dyspnea Uncoded 03/13/22 16:17 Physical Exam Vitals: Vital Signs Temp Pulse Pulse Resp BP BP Pulse Ox 03/13/22 21:50 86 03/13/22 20:00 98.2 F 86 19 161/77 95 03/13/22 19:34 99.5 F 94 20 146/76 97 03/13/22 18:49 94 18 124/89 94 L 03/13/22 18:44 22 03/13/22 16:14 98.9 F 90 22 145/65 94 L Intake and Output 03/13/22 03/13/22 03/14/22 14:59 22:59 06:59 Other: Voiding Method Toilet Weight 113.398 kg Constitutional: No acute distress, conversant, pleasant Eyes: Anicteric sclerae, moist conjunctiva, Pupils equal round reactive to light ENMT: NC/AT Oropharynx clear, no erythema, or exudates Neck: Supple, no masses, or JVD No carotid bruits No thyromegaly Lungs: Clear to auscultation Clear to percussion Normal respiratory effort, no accessory muscle use Cardiovascular: Heart regular in rate and rhythm, No murmurs, gallops, or rubs No peripheral edema Abdominal: Soft Nontender, no guarding, rebound or rigidity Abdomen moving with respiration Normoactive bowel sounds No hepatomegaly, No splenomegaly No palpable mass No abdominal wall hernia noted Skin: Normal temperature, tone, texture, turgor No induration No subcutaneous nodules No rash, lesions No ulcers Extremities: No digital cyanosis No clubbing Pedal pulses intact and symmetrical Radial pulses intact and symmetrical No calf tenderness Psychiatric: Alert and oriented to person, place and time Appropriate affect fair judgement Neuro Muscles Strength 5/5 in all 4 extremities Sensation to light touch grossly present throughout Cranial nerves II-XII grossly intact Lymphatics: no palpable cervical or supraclavicular lymph nodes Results CBC & Chem 7: 03/13/22 17:31 03/13/22 17:31 Labs: Abnormal Lab Results - Last 24 Hours (Table) 03/13/22 03/13/22 03/13/22 Range/Units 17:31 17:31 19:06 WBC 15.0 H (3.8-10.6) k/uL MCV 77.3 L (80.0-100.0) fL Neutrophils # 12.2 H (1.3-7.7) k/uL Sodium 130 L (137-145) mmol/L Carbon Dioxide 20 L (22-30) mmol/L Glucose 351 H (74-99) mg/dL POC Glucose (mg/dL) (70-110) mg/dL Alkaline Phosphatase 144 H (38-126) U/L Urine Appearance Cloudy H (Clear) Ur Specific [place] 1.041 H (1.001-1.035) Urine Protein 2+ H (Negative) Urine Glucose (UA) 4+ H (Negative) Urine Ketones Trace H (Negative) Urine Blood Trace H (Negative) Ur Leukocyte Esterase Moderate H (Negative) Urine RBC 12 H (0-5) /hpf Urine WBC 35 H (0-5) /hpf Ur Squamous Epith Cells 18 H (0-4) /hpf Urine Bacteria Rare H (None) /hpf Urine Mucus Few H (None) /hpf 03/13/22 Range/Units 20:40 WBC (3.8-10.6) k/uL MCV (80.0-100.0) fL Neutrophils # (1.3-7.7) k/uL Sodium (137-145) mmol/L Carbon Dioxide (22-30) mmol/L Glucose (74-99) mg/dL POC Glucose (mg/dL) 390 H (70-110) mg/dL Alkaline Phosphatase (38-126) U/L Urine Appearance (Clear) Ur Specific [place] (1.001-1.035) Urine Protein (Negative) Urine Glucose (UA) (Negative) Urine Ketones (Negative) Urine Blood (Negative) Ur Leukocyte Esterase (Negative) Urine RBC (0-5) /hpf Urine WBC (0-5) /hpf Ur Squamous Epith Cells (0-4) /hpf Urine Bacteria (None) /hpf Urine Mucus (None) /hpf Microbiology - Last 24 Hours (Table) 03/13/22 19:06 Urine Culture - Preliminary Urine,Voided Thrombosis Risk Factor Assmnt - Choose All That Apply Each Factor Represents 1 point: Abnormal pulmonary function (COPD), Obesity (BMI >25), Serious lung disease incl. pneumonia (< 1month), Swollen legs (current) Other Risk Factors: Yes Each Risk Factor Represents 2 Points: Age 61-74 years Other congenital or acquired thrombophilia - If yes, enter type in comment: No Thrombosis Risk Factor Assessment Total Risk Factor Score: 6 Thrombosis Risk Factor Assessment Level: High Risk Assessment and Plan Assessment: Community-acquired pneumonia Chest x-ray positive infiltrates Leukocytosis Tylenol for fever Symptomatic control of cough tylenol for fever symptomatic control of coughing levofloxacin daily follow up cultures chronic conditions hypertension , resume home meds DM , insulin sliding scale COPD , inhalers, prn duoneb TERRIE , cpap dvt ppx heparin sc tid full code
[2022-03-14] MEDS ORDERED: BENZONATATE 100 MG CAP PO PRN (03:14)
[2022-03-14 03:29] LABS: Glucose,Whole Blood 298 mg/dL (70-110)
[2022-03-14] MEDS: SODIUM CHLORIDE 0.9% 1,000 ML IV SCH ×2 (03:55→14:35)
[2022-03-14 06:16] LABS: Glucose,Whole Blood 261 mg/dL (70-110)
[2022-03-14] MEDS: INSULIN ASPART (NovoLOG) 100 UNIT/ML VIAL SQ SCH ×4 (06:38→21:59)
[2022-03-14] MEDS: IPRATROPIUM-ALBUTEROL 3 ML NEB INHALATION PRN ×3 (08:42→19:41)
[2022-03-14] MEDS: SYMBICORT 80-4.5 MCG INHALER INHALATION SCH ×2 (08:42→19:41)
[2022-03-14] MEDS: DILTIAZEM CD 300 MG CAP.ER.24H PO SCH (09:06)
[2022-03-14] MEDS: LORATADINE 10 MG TAB PO SCH (09:06)
[2022-03-14] MEDS: ASPIRIN 81 MG PO SCH (09:06)
[2022-03-14] MEDS: LOSARTAN 50 MG TAB PO SCH ×2 (09:06→22:00)
[2022-03-14] MEDS: HEPARIN SODIUM,PORCINE/PF 5,000 UNIT/0.5 ML SYRINGE SQ SCH ×3 (09:06→23:45)
[2022-03-14] MEDS ORDERED: SENNOSIDES-DOCUSATE SODIUM 1 EACH TAB PO PRN (09:42)
[2022-03-14 11:22] LABS: Glucose,Whole Blood 339 mg/dL (70-110)
--- NOTE | 2022-03-14 11:23 | P.PN ---
Subjective Progress Note Date: 03/14/22 Principal diagnosis: SOB Hospital Course: 61-year-old female with history of COPD on 2 L home oxygen, hypertension, diabetes, TERRIE presenting with productive cough, shortness of breath concerning for community-acquired pneumonia. Currently on IV antibiotics. Subjective: Patient seen and examined at bedside. No acute events overnight. She claims that her shortness of breath is slightly better. She continues to have some productive cough. She is able to eat and drink okay. She has been able to ambulate with a walker. She denies any chest pain, palpitations, lightheadedness, diarrhea, constipation, or urinary complaints. Pertinent positives and negatives as discussed above, a complete review of systems was performed and all other systems are negative. Vitals Signs Reviewed. General: nontoxic, no distress, appears at stated age, obese Derm: warm, dry Head: atraumatic, normocephalic, symmetric Eyes: EOMI, no lid lag, anicteric sclera Mouth: no lip lesion, mucus membranes moist Cardiovascular: S1S2 reg, no murmur Lungs: CTA bilateral, no rhonchi, no rales , no accessory muscle use, supplemental oxygen Abdominal: soft, nontender to palpation, no guarding, no appreciable organomegaly Ext: no gross muscle atrophy, no edema, no contractures Neuro: CN II-XI grossly intact, no focal neuro deficits Psych: Alert, oriented, appropriate affect Assessment and Plan: Sepsis secondary to Community-acquired pneumonia Leukocytosis Acute on chronic hypoxic respiratory failure -Blood cultures pending -Legionella urine antigen pending -Respiratory viral panel negative -Continue levofloxacin as she is ALLERGIC to cephalosporin Mild hyponatremia, likely hypovolemic -On IV fluids COPD not in exacerbation - continue inhalers TERRIE - CPAP Chronic medical conditions: Hypertension - continue home meds Diabetes - sliding scale insulin, and Levemir 35 units Dyslipidemia - continue home meds DVT ppx: Heparin subcu Code status: Full code Anticipated discharge place: Home Anticipated discharge time: Tomorrow Objective - Vital Signs Vital signs: Vital Signs Temp 98.0 F 03/14/22 08:00 Pulse 86 03/14/22 08:54 Resp 16 03/14/22 08:00 BP 161/83 03/14/22 08:00 Pulse Ox 97 03/14/22 08:47 FiO2 Intake & Output 03/13/22 03/14/22 03/14/22 18:59 06:59 18:59 Weight 113.398 kg 113.398 kg Other: Voiding Method Toilet Toilet # Voids 2 - Labs CBC & Chem 7: 03/13/22 17:31 03/13/22 17:31 Labs: Abnormal Lab Results - Last 24 Hours (Table) 03/13/22 03/13/22 03/13/22 Range/Units 17:31 17:31 19:06 WBC 15.0 H (3.8-10.6) k/uL MCV 77.3 L (80.0-100.0) fL Neutrophils # 12.2 H (1.3-7.7) k/uL Sodium 130 L (137-145) mmol/L Carbon Dioxide 20 L (22-30) mmol/L Glucose 351 H (74-99) mg/dL POC Glucose (mg/dL) (70-110) mg/dL Alkaline Phosphatase 144 H (38-126) U/L Urine Appearance Cloudy H (Clear) Ur Specific [place] 1.041 H (1.001-1.035) Urine Protein 2+ H (Negative) Urine Glucose (UA) 4+ H (Negative) Urine Ketones Trace H (Negative) Urine Blood Trace H (Negative) Ur Leukocyte Esterase Moderate H (Negative) Urine RBC 12 H (0-5) /hpf Urine WBC 35 H (0-5) /hpf Ur Squamous Epith Cells 18 H (0-4) /hpf Urine Bacteria Rare H (None) /hpf Urine Mucus Few H (None) /hpf 03/13/22 03/14/22 03/14/22 Range/Units 20:40 03:27 06:12 WBC (3.8-10.6) k/uL MCV (80.0-100.0) fL Neutrophils # (1.3-7.7) k/uL Sodium (137-145) mmol/L Carbon Dioxide (22-30) mmol/L Glucose (74-99) mg/dL POC Glucose (mg/dL) 390 H 298 H 261 H (70-110) mg/dL Alkaline Phosphatase (38-126) U/L Urine Appearance (Clear) Ur Specific [place] (1.001-1.035) Urine Protein (Negative) Urine Glucose (UA) (Negative) Urine Ketones (Negative) Urine Blood (Negative) Ur Leukocyte Esterase (Negative) Urine RBC (0-5) /hpf Urine WBC (0-5) /hpf Ur Squamous Epith Cells (0-4) /hpf Urine Bacteria (None) /hpf Urine Mucus (None) /hpf 03/14/22 Range/Units 11:21 WBC (3.8-10.6) k/uL MCV (80.0-100.0) fL Neutrophils # (1.3-7.7) k/uL Sodium (137-145) mmol/L Carbon Dioxide (22-30) mmol/L Glucose (74-99) mg/dL POC Glucose (mg/dL) 339 H (70-110) mg/dL Alkaline Phosphatase (38-126) U/L Urine Appearance (Clear) Ur Specific [place] (1.001-1.035) Urine Protein (Negative) Urine Glucose (UA) (Negative) Urine Ketones (Negative) Urine Blood (Negative) Ur Leukocyte Esterase (Negative) Urine RBC (0-5) /hpf Urine WBC (0-5) /hpf Ur Squamous Epith Cells (0-4) /hpf Urine Bacteria (None) /hpf Urine Mucus (None) /hpf Microbiology - Last 24 Hours (Table) 03/13/22 19:06 Urine Culture - Preliminary Urine,Voided
[2022-03-14 16:59] LABS: Glucose,Whole Blood 335 mg/dL (70-110)
[2022-03-14] MEDS ORDERED: LEVOFLOXACIN 750MG-D5W PMX 750 MG in DEXTROSE/WATER 1 150ML.BAG IVPB SCH (18:00)
[2022-03-14 20:08] LABS: Glucose,Whole Blood 318 mg/dL (70-110)
[2022-03-14] MEDS: rOPINIRole HCL 4 MG TABLET PO SCH (22:00)
[2022-03-14] MEDS: INSULIN DETEMIR (LEVEMIR) 100 UNIT/ML SYR SQ SCH (22:00)
[2022-03-14] MEDS: ATORVASTATIN 40 MG TAB PO SCH (22:00)
[2022-03-15 06:17] LABS: Glucose,Whole Blood 183 mg/dL (70-110)
[2022-03-15] MEDS: INSULIN ASPART (NovoLOG) 100 UNIT/ML VIAL SQ SCH (06:43)
[2022-03-15] MEDS: SODIUM CHLORIDE 0.9% 1,000 ML IV SCH (06:44)
[2022-03-15 07:14] LABS: Glucose,Whole Blood 259 mg/dL (70-110)
[2022-03-15] MEDS: LOSARTAN 50 MG TAB PO SCH (08:20)
[2022-03-15] MEDS: ASPIRIN 81 MG PO SCH (08:20)
[2022-03-15] MEDS: LORATADINE 10 MG TAB PO SCH (08:20)
[2022-03-15] MEDS: HEPARIN SODIUM,PORCINE/PF 5,000 UNIT/0.5 ML SYRINGE SQ SCH (08:20)
[2022-03-15] MEDS: DILTIAZEM CD 300 MG CAP.ER.24H PO SCH (08:21)
[2022-03-15] MEDS: SYMBICORT 80-4.5 MCG INHALER INHALATION SCH (08:39)
[2022-03-15] MEDS: IPRATROPIUM-ALBUTEROL 3 ML NEB INHALATION PRN (08:39)
[2022-03-15 08:42] VITALS: BP 158/77; RESP 18; TEMP 97.9
[2022-03-15 08:52] VITALS: PULSE 80
[2022-03-15 09:23] LABS: Basophils # (A) 0.04 X 10*3/uL (0.00-0.10); Basophils % (A) 0.5 %; Eosinophils # (A) 0.29 X 10*3/uL (0.04-0.35); Eosinophils % (A) 3.9 %; Immature Grans, Automated 0.5 %; Lymphocytes # (A) 2.02 X 10*3/uL (0.90-5.00); Lymphocytes % (A) 27.3 %; MCH 24.5 pg (27.0-32.0); MCHC 31.4 g/dL (32.0-37.0); Mean Platelet Volume 10.3 fL (9.5-12.2); Monocytes # (A) 0.44 X 10*3/uL (0.20-1.00); Monocytes % (A) 5.9 %; NRBC Per 100 WBC 0 /100 WBCS (0.0-0.0); Neutrophils # (A) 4.57 X 10*3/uL (1.80-7.70); Neutrophils % (A) 61.9 %; Platelet Count 296 X 10*3/uL (140-440); RBC 4.49 X 10*6/uL (4.10-5.20); RDW 16.3 % (11.5-14.5)
[2022-03-15 09:41] LABS: African American GFR (CKD) 89.2 (60.0-200.0); Anion Gap 13.4 mmol/L (10.00-18.00); BUN/Creat Ratio 19.43 Ratio (12.00-20.00); Blood Urea Nitrogen 15.8 mg/dL (9.0-27.0); Calcium 8.9 mg/dL (8.7-10.3); Carbon Dioxide 23.1 mmol/L (20.0-27.5); Potassium 4.4 mmol/L (3.5-5.5)
[2022-03-15 11:20] LABS: Glucose,Whole Blood 299 mg/dL (70-110)
--- NOTE | 2022-03-15 11:59 | P.DS ---
Providers Date of admission: 03/13/22 18:57 Expected date of discharge: 03/15/22 Attending physician: Jolie Arias DO Primary care physician: Physician Nonstaff Hospital Course: Discharge Diagnosis: Sepsis secondary to community-acquired pneumonia Leukocytosis Mild hyponatremia, hypovolemic COPD not in exacerbation TERRIE on CPAP [place] hypertension Diabetes Dyslipidemia Hospital Course: 61-year-old female with history of COPD on 2 L home oxygen, hypertension, diabetes, TERRIE presenting with productive cough, shortness of breath concerning for community-acquired pneumonia. On presentation her vital signs were within normal limits. Initial lab work showed leukocytosis of 15, mild hyponatremia 1:30, and hyperglycemia 350. COVID-19 and influenza tests were negative. Legionella antigen was negative. Patient was started on IV levofloxacin due to prior history of ALLERGIES to cephalosporins. She is on room air at discharge. She will be discharged on oral levofloxacin. She will have a close follow-up with PCP. Patient seen and examined at bedside.[] Vital signs reviewed and stable. General: nontoxic, no distress, appears at stated age, obese Derm: warm, dry Head: atraumatic, normocephalic, symmetric Eyes: EOMI, no lid lag, anicteric sclera Mouth: no lip lesion, mucus membranes moist Cardiovascular: S1S2 reg, no murmur Lungs: CTA bilateral, no rhonchi, no rales , no accessory muscle use, supplemental oxygen Abdominal: soft, nontender to palpation, no guarding, no appreciable organomegaly Ext: no gross muscle atrophy, no edema, no contractures Neuro: CN II-XI grossly intact, no focal neuro deficits Psych: Alert, oriented, appropriate affect A total of 39 minutes of time were spent preparing this complex discharge summary. Patient was discharged on 03/15/22 at 10. Patient Condition at Discharge: Stable Plan - Discharge Summary Discharge Rx Participant: No New Discharge Prescriptions: New levoFLOXacin 500 mg PO DAILY #7 tab Continue Loratadine [Claritin] 10 mg PO DAILY EPINEPHrine (Auto Inject) [Epipen] 0.3 mg IM ONCE PRN PRN Reason: Anaphylaxis Sennosides/Docusate Sodium [Senna Plus 8.6-50 mg Tablet] 1 tab PO BID PRN PRN Reason: Constipation Insulin Glargine,Hum.rec.anlog [Lantus Solostar Pen] 35 unit SQ HS Losartan [Cozaar] 50 mg PO BID Aspirin 81 mg PO DAILY 30 Days #30 chew Fluticasone Propion/Salmeterol [Wixela 250-50 Inhub] 1 puff INHALATION RT-BID Ozempic 0.5mg/0.375ml 0.5 mg SQ MO Albuterol Inhaler [Ventolin Hfa Inhaler] 2 puff INHALATION RT-QID PRN PRN Reason: Shortness Of Breath Dextrose Chew [Glucose Chew Tab] 4 gm PO TID PRN PRN Reason: LOW BLOOD SUGAR dilTIAZem HCL [Cartia Xt] 300 mg PO DAILY Insulin Aspart [NovoLOG Flexpen] 25 units SQ TID-W/MEALS metFORMIN HCL [Glucophage] 1,000 mg PO BID Atorvastatin [Lipitor] 40 mg PO HS Echinacea 400 mg PO DAILY Cholecalciferol [Vitamin D3 (25 Mcg = 1000 Iu)] 50 mcg PO DAILY rOPINIRole HCL [Requip] 4 mg PO HS Power C Gummy 3 tab PO DAILY Miconazole Nitrate [Lotrimin AF Powder] 1 applic TOPICAL DAILY PRN PRN Reason: Groin/Abdominal Folds Acetaminophen [Tylenol 8 Hour] 1,300 mg PO Q8H PRN PRN Reason: Pain Ferrous Sulfate [Iron (65 MG Elemental)] 325 mg PO DAILY Discharge Medication List Loratadine [Claritin] 10 mg PO DAILY 06/09/15 [History] EPINEPHrine (Auto Inject) [Epipen] 0.3 mg IM ONCE PRN 04/19/20 [History] Insulin Glargine,Hum.rec.anlog [Lantus Solostar Pen] 35 unit SQ HS 04/19/20 [History] Losartan [Cozaar] 50 mg PO BID 04/19/20 [History] Sennosides/Docusate Sodium [Senna Plus 8.6-50 mg Tablet] 1 tab PO BID PRN 04/19/20 [History] Aspirin 81 mg PO DAILY 30 Days #30 chew 05/02/20 [Rx] dilTIAZem HCL [Cartia Xt] 300 mg PO DAILY 07/14/20 [History] Fluticasone Propion/Salmeterol [Wixela 250-50 Inhub] 1 puff INHALATION RT-BID 07/14/21 [History] Insulin Aspart [NovoLOG Flexpen] 25 units SQ TID-W/MEALS 07/14/21 [History] Atorvastatin [Lipitor] 40 mg PO HS 07/30/21 [History] Cholecalciferol [Vitamin D3 (25 Mcg = 1000 Iu)] 50 mcg PO DAILY 07/30/21 [H istory] Echinacea 400 mg PO DAILY 07/30/21 [History] Power C Gummy 3 tab PO DAILY 07/30/21 [History] metFORMIN HCL [Glucophage] 1,000 mg PO BID 07/30/21 [History] rOPINIRole HCL [Requip] 4 mg PO HS 07/30/21 [History] Acetaminophen [Tylenol 8 Hour] 1,300 mg PO Q8H PRN 10/30/21 [History] Albuterol Inhaler [Ventolin Hfa Inhaler] 2 puff INHALATION RT-QID PRN 10/30/21 [History] Miconazole Nitrate [Lotrimin AF Powder] 1 applic TOPICAL DAILY PRN 10/30/21 [History] Ozempic 0.5mg/0.375ml 0.5 mg SQ MO 10/30/21 [History] Dextrose Chew [Glucose Chew Tab] 4 gm PO TID PRN 03/13/22 [History] Ferrous Sulfate [Iron (65 MG Elemental)] 325 mg PO DAILY 03/13/22 [History] levoFLOXacin 500 mg PO DAILY #7 tab 03/15/22 [Rx] Follow up Appointment(s)/Referral(s): Nonstaff,Physician [Primary Care Provider] - 1-2 days Patient Instructions/Handouts: COPD (Chronic Obstructive Pulmonary Disease) (DC), Bacterial Pneumonia (DC) Activity/Diet/Wound Care/Special Instructions: Please see your PCP in 1-2 days. Discharge Disposition: HOME SELF-CARE
--- NOTE | 2022-03-18 12:18 | CDI ---
Documentation Clarification Form Date: 03/18/2022 11:58:55 AM From: Mony Telles RN, CCDS Email: [email or web address] Admit Date: 03/13/2022 06:57:00 PM Patient Name: Halima Mejia Visit Number: [id number] Discharge Date: 03/15/2022 01:16:00 PM ATTENTION: The Clinical Documentation Specialists (CDI) and [facility] Coding Staff appreciate your assistance in clarifying documentation. Please respond to the clarification below the line at the bottom and electronically sign. The CDI & [facility] Coding staff will review the response and follow-up if needed. Please note: Queries are made part of the Legal Health Record. If you have any questions, please contact the author of this message via ITS. Dr. Jluis Case Sepsis is documented in the 03/14 progress note and 03/15 discharge summary which may lack sufficient clinical evidence/support in the medical record. Additional clarification is requested. History/Risk Factors: COPD, asthma, emphysema, pulmonary hypertension, hypertension and diabetes, presents to the emergency department for increasing cough and fatigue. The patient stated that she has had pneumonia approximately 16 times in the past and it does feel like this again. Clinical Indicators: Vital signs during admission: Temp 97.1-99.5, HR 80-94, RR 16-22, BP 149/71, POX 94-99% on room air to 3LNC 03/13 WBC 15.0, lactic acid 2.0, BC no growth. 03/15 WBC 7.40 03/13 ED: Vital signs admission were stable and within normal limits. The patient was resting in bed not requiring any oxygen at this time. Laboratory workup was obtained and showed a mild elevated white blood cell count at 15. Clinical Impression: Community acquired bacterial pneumonia 03/13 H&P: 2 L home oxygen. Community-acquired pneumonia. Chest x-ray positive infiltrates Leukocytosis. 03/14 PN: General: nontoxic, no distress. Sepsis secondary to Community- acquired pneumonia. Leukocytosis. Acute on chronic hypoxic respiratory failure. 03/15 Discharge summary: On presentation her vital signs were within normal limits Discharge Diagnosis: Sepsis secondary to community-acquired pneumonia. Leukocytosis. Mild hyponatremia, hypovolemic. COPD not in exacerbation. Treatment: 0.9 NS @75/hr, IV Levaquin 750mg on 03/13 and 03/14 Please clarify if Sepsis is a valid diagnosis? [ x ] Yes, Sepsis was present as evidenced by (additional clinical support): ___elevated HR, RR and WBC + infiltrate on xray [ ] No, Sepsis was ruled out [ ] Other (please specify diagnosis) [ ] Unable to determine MTDD
--- NOTE | 2022-03-18 12:32 | CDI ---
Documentation Clarification Form Date: 03/18/2022 12:18:44 PM From: Mony Telles RN, CCDS Email: [email or web address] Admit Date: 03/13/2022 06:57:00 PM Patient Name: Halima Mejia Visit Number: [id number] Discharge Date: 03/15/2022 01:16:00 PM ATTENTION: The Clinical Documentation Specialists (CDI) and [facility] Coding Staff appreciate your assistance in clarifying documentation. Please respond to the clarification below the line at the bottom and electronically sign. The CDI & [facility] Coding staff will review the response and follow-up if needed. Please note: Queries are made part of the Legal Health Record. If you have any questions, please contact the author of this message via ITS. Dr. Jluis Case Acute on chronic hypoxic respiratory failure is documented in the 03/14 progress note which may lack sufficient clinical evidence/support in the medical record. Additional clarification is requested. History/Risk Factors: COPD, asthma, emphysema, pulmonary hypertension, hypertension and diabetes, presents to the emergency department for increasing cough and fatigue. The patient stated that she has had pneumonia approximately 16 times in the past and it does feel like this again. Home oxygen 2LNC. CPAP at night for TERRIE. Clinical Indicators: Vital signs during admission: Temp 97.1-99.5, HR 80-94, RR 16-22, BP 149/71, POX 94-99% on room air to 3LNC 03/13 ED: "Vital signs admission were stable and within normal limits. The patient was resting in bed not requiring any oxygen at this time. Laboratory workup was obtained and showed a mild elevated white blood cell count at 15. Clinical Impression: Community acquired bacterial pneumonia." 03/13 H&P: 2 L home oxygen. Community-acquired pneumonia. Chest x-ray positive infiltrates. Leukocytosis. 03/14 PN: General: nontoxic, no distress. Sepsis secondary to Community- acquired pneumonia. Leukocytosis. Acute on chronic hypoxic respiratory failure. 03/15 Discharge summary: On presentation her vital signs were within normal limits. Discharge Diagnosis: Sepsis secondary to community-acquired pneumonia. Leukocytosis. Mild hyponatremia, hypovolemic. COPD not in exacerbation. Treatment: Oxygen: room air-3LNC. CPAP for TERRIE. A/A QID prn Please clarify if acute on chronic hypoxic respiratory is a valid diagnosis? [ ] Yes, acute on chronic hypoxic respiratory failure was present as evidenced by (additional clinical support): [ x ] No, acute on chronic hypoxic respiratory failure was ruled out [ ] Other (please specify diagnosis) [ ] Unable to determine MTDD
== END 2022-03-15 13:16 | disposition home or self-care (01) | DRG 871 ==
LOC: EC 14:48 → 4SSUR 18:57
PROVIDERS: ADMIT Internal Medicine; ATTEND Internal Medicine
DX: A41.9 Sepsis, unspecified organism (principal); J15.9 Unspecified bacterial pneumonia; E87.1 Hypo-osmolality and hyponatremia; Z68.43 Body mass index [BMI] 50.0-59.9, adult; I27.20 Pulmonary hypertension, unspecified; I11.0 Hypertensive heart disease with heart failure; I50.9 Heart failure, unspecified; K76.0 Fatty (change of) liver, not elsewhere classified; J43.9 Emphysema, unspecified; E11.65 Type 2 diabetes mellitus with hyperglycemia; Z79.4 Long term (current) use of insulin; Z20.822 Contact with and (suspected) exposure to COVID-19; Z28.310 Unvaccinated for COVID-19; E66.9 Obesity, unspecified; E86.1 Hypovolemia; E78.5 Hyperlipidemia, unspecified; H91.90 Unspecified hearing loss, unspecified ear; K21.9 Gastro-esophageal reflux disease without esophagitis; G47.33 Obstructive sleep apnea (adult) (pediatric); G43.909 Migraine, unspecified, not intractable, without status migrainosus; I45.10 Unspecified right bundle-branch block; K22.70 Barrett's esophagus without dysplasia; D64.9 Anemia, unspecified; E07.9 Disorder of thyroid, unspecified; G25.81 Restless legs syndrome; K58.9 Irritable bowel syndrome, unspecified; F90.9 Attention-deficit hyperactivity disorder, unspecified type; M19.90 Unspecified osteoarthritis, unspecified site; E73.9 Lactose intolerance, unspecified; Z77.22 Contact with and (suspected) exposure to environmental tobacco smoke (acute) (chronic); I25.10 Atherosclerotic heart disease of native coronary artery without angina pectoris; I25.2 Old myocardial infarction; Z99.81 Dependence on supplemental oxygen; R91.8 Other nonspecific abnormal finding of lung field; Z79.84 Long term (current) use of oral hypoglycemic drugs; Z79.82 Long term (current) use of aspirin; Z79.899 Other long term (current) drug therapy; Z87.01 Personal history of pneumonia (recurrent); Z86.16 Personal history of COVID-19; Z86.73 Personal history of transient ischemic attack (TIA), and cerebral infarction without residual deficits; Z87.442 Personal history of urinary calculi; Z88.1 Allergy status to other antibiotic agents; Z91.030 Bee allergy status; Z91.02 Food additives allergy status; Z88.5 Allergy status to narcotic agent; Z88.7 Allergy status to serum and vaccine; Z88.8 Allergy status to other drugs, medicaments and biological substances
CPT/HCPCS: 36415; 71046; 80048; 80053; 81001; 83605; 83735; 83880; 84484; 85025; 87040; 87086; 87449; 87502; 87635; 94640; 94760; 96365; 96366; 99285

== ENCOUNTER 2022-07-25 11:52 | Emergency (ER) | payer MEDICARE, OTHER ==
[2022-07-25 12:37] VITALS: RESP 18; TEMP 97.9
--- NOTE | 2022-07-25 12:54 | XR ---
EXAMINATION TYPE: XR chest 2V DATE OF EXAM: 07/25/2022 COMPARISON: 05/23/2022 HISTORY: Chest pain TECHNIQUE: Frontal and lateral views of the chest are obtained. FINDINGS: As on the prior study, there is mild cardiomegaly without overt pulmonary vascular congestion or inte rstitial edema. There is no airspace consolidation. There is no pneumothorax or large pleural effusion. There are postsurgical changes of right rotator cuff repair. IMPRESSION: Mild cardiomegaly with no overt CHF or acute cardiopulmonary disease. No interval change compared to previous.
[2022-07-25 12:56] LABS: Basophils % (A) 0 %; Eosinophils # (A) 0.2 k/uL (0-0.7); Eosinophils % (A) 2 %; HCT 40.1 % (34.0-46.0); HGB 13.2 gm/dL (11.4-16.0); Lymphocytes # (A) 1.8 k/uL (1.0-4.8); Lymphocytes % (A) 20 %; MCH 26.2 pg (25.0-35.0); MCV 79.4 fL (80.0-100.0); Mean Platelet Volume 7.4; Monocytes # (A) 0.3 k/uL (0-1.0); Monocytes % (A) 3 %; Neutrophils # (A) 6.6 k/uL (1.3-7.7); Neutrophils % (A) 74 %; Platelet Count 263 k/uL (150-450); RBC 5.05 m/uL (3.80-5.40); RDW 15.2 % (11.5-15.5)
[2022-07-25 13:06] LABS: ALT 26 U/L (4-34); African American GFR (CKD) >90 (>60 ml/min/1.73 sqM); Albumin 4.6 g/dL (3.5-5.0); Anion Gap 14 mmol/L; Blood Urea Nitrogen 16 mg/dL (7-17); Calcium 9.4 mg/dL (8.4-10.2); Carbon Dioxide 21 mmol/L (22-30); Chloride 101 mmol/L (98-107); Glucose 187 mg/dL (74-99); Non-African American GFR(CKD) 85 (>60 ml/min/1.73 sqM); Sodium 136 mmol/L (137-145); Total Bilirubin 0.8 mg/dL (0.2-1.3); Total Protein 7.6 g/dL (6.3-8.2)
[2022-07-25 13:08] LABS: INR 0.9 (<1.2); Partial Thromboplastin Time 22.3 sec (22.0-30.0); Prothrombin Time 9.9 sec (9.0-12.0)
[2022-07-25 13:20] LABS: Magnesium 1.3 mg/dL (1.6-2.3); Potassium 4.7 mmol/L (3.5-5.1)
[2022-07-25 13:21] LABS: AST 23 U/L (14-36); Alkaline Phosphatase 86 U/L (38-126)
--- NOTE | 2022-07-25 13:33 | ED ---
General Adult HPI - General Chief complaint: Recheck/Abnormal Lab/Rx Stated complaint: hypertension, dizziness Time Seen by Provider: 07/25/22 12:00 Source: patient, RN notes reviewed, old records reviewed Mode of arrival: ambulatory Limitations: no limitations - History of Present Illness Initial comments: This is a 61-year-old female who presents emergency Department complaining of being dizzy anytime she moves her head she also states her blood pressure was elevated that was approximately 190s over 100. Patient states she also had a couple of bloody noses over the last couple of days. Patient states she's on Plavix and aspirin. Patient states she hasn't had a bloody nose today. Patient states her blood pressure is also better today. Patient denies any chest pain pressure or shortness of breath. Patient denies any difficulty breathing. Patient denies any new swelling to the legs or calf tenderness. Patient denies any vomiting or diarrhea. - Related Data Home Medications Medication Instructions Recorded Confirmed Loratadine [Claritin] 10 mg PO DAILY 06/09/15 07/25/22 EPINEPHrine (Auto Inject) [Epipen] 0.3 mg IM ONCE PRN 04/19/20 07/25/22 Insulin Glargine,Hum.rec.anlog 35 unit SQ HS 04/19/20 07/25/22 [Lantus Solostar Pen] Losartan [Cozaar] 50 mg PO BID 04/19/20 07/25/22 Sennosides/Docusate Sodium [Senna 1 tab PO BID PRN 04/19/20 07/25/22 Plus 8.6-50 mg Tablet] dilTIAZem HCL [Cartia Xt] 300 mg PO DAILY 07/14/20 07/25/22 Fluticasone Propion/Salmeterol 1 puff INHALATION RT-BID 07/14/21 07/25/22 [Wixela 250-50 Inhub] Insulin Aspart [NovoLOG Flexpen] 25 units SQ TID-W/MEALS 07/14/21 07/25/22 Atorvastatin [Lipitor] 40 mg PO HS 07/30/21 07/25/22 Cholecalciferol [Vitamin D3 (25 50 mcg PO DAILY 07/30/21 07/25/22 Mcg = 1000 Iu)] Echinacea 400 mg PO DAILY 07/30/21 07/25/22 Power C Gummy 3 tab PO DAILY 07/30/21 07/25/22 metFORMIN HCL [Glucophage] 1,000 mg PO BID 07/30/21 07/25/22 rOPINIRole HCL [Requip] 4 mg PO HS 07/30/21 07/25/22 Acetaminophen [Tylenol 8 Hour] 1,300 mg PO Q8H PRN 10/30/21 07/25/22 Albuterol Inhaler [Ventolin Hfa 2 puff INHALATION RT-QID PRN 10/30/21 07/25/22 Inhaler] Miconazole Nitrate [Lotrimin AF 1 applic TOPICAL DAILY PRN 10/30/21 07/25/22 Powder] Ozempic 0.5mg/0.375ml 0.5 mg SQ MO 10/30/21 07/25/22 Dextrose Chew [Glucose Chew Tab] 4 gm PO TID PRN 03/13/22 07/25/22 Ferrous Sulfate [Iron (65 MG 325 mg PO DAILY 03/13/22 07/25/22 Elemental)] Previous Rx's Medication Instructions Recorded Meclizine [Antivert] 25 mg PO TID #20 tab 07/25/22 Allergies Allergy/AdvReac Type Severity Reaction Status Date / Time ammonia Allergy Dyspnea & Verified 07/25/22 12:42 Passed Out atenolol Allergy Dyspnea, Verified 07/25/22 12:42 Migraine cephalexin [From Keflex] Allergy Dyspnea Verified 07/25/22 12:42 diphtheria,pertussis Allergy Dyspnea & Verified 07/25/22 12:42 (acellular),te Heart [From Boostrix Tdap] Palpitations & Nausea dulaglutide [From Trulicity] Allergy Dyspnea Verified 07/25/22 12:42 exenatide [From Byetta] Allergy Unknown Verified 07/25/22 12:42 feathers Allergy Anaphylaxis Verified 07/25/22 12:42 guaifenesin Allergy Dyspnea Verified 07/25/22 12:42 influenza virus vaccine, Allergy Dyspnea & Verified 07/25/22 12:42 specific Heart Palpitations & Nausea meperidine [From Demerol] Allergy Hives, Verified 07/25/22 12:42 Rash, Hypotension meperidine HCl [From Demerol] Allergy Anaphylaxis Verified 07/25/22 12:42 mint Allergy Anaphylaxis Verified 07/25/22 12:42 mold Allergy Anaphylaxis Verified 07/25/22 12:42 nifedipine [From Procardia] Allergy Unknown Verified 07/25/22 12:42 pneumococcal vaccine Allergy Dyspnea & Verified 07/25/22 12:42 Heart Palpitations & Nausea simvastatin [From Zocor] Allergy Muscle/Joint Verified 07/25/22 12:42 Pain venom-honey bee Allergy Anaphylaxis Verified 07/25/22 12:42 [bee venom (honey bee)] wool Allergy Anaphylaxis Verified 07/25/22 12:42 zolpidem [From Ambien] Allergy Dyspnea, Verified 07/25/22 12:42 Migraine zolpidem tartrate Allergy Dyspnea, Verified 07/25/22 12:42 [From Ambien] Migraine zoster vaccine live Allergy Dyspnea & Verified 07/25/22 12:42 Heart Palpitations & Nausea amlodipine AdvReac Headache Verified 07/25/22 12:42 barium sulfate AdvReac rectal Verified 07/25/22 12:42 bleeding diphenhydramine AdvReac Hypertensio Verified 07/25/22 12:42 n fexofenadine [From Elena] AdvReac Migraine Verified 07/25/22 12:42 fexofenadine HCl AdvReac Muscle Pain Verified 07/25/22 12:42 [From Elena] fluoxetine AdvReac "Feeling Verified 07/25/22 12:42 Irritable" fluvastatin AdvReac Muscle Pain Verified 07/25/22 12:42 hydrochlorothiazide AdvReac Tachycardia Verified 07/25/22 12:42 isosorbide [From Imdur] AdvReac Migraine Verified 07/25/22 12:42 lisinopril AdvReac Fatigue, Verified 07/25/22 12:42 Cough modafinil AdvReac Headache Verified 07/25/22 12:42 nitroglycerin AdvReac Dizziness Verified 07/25/22 12:42 ondansetron [From Zofran] AdvReac Nausea Verified 07/25/22 12:42 paroxetine [From Paxil] AdvReac "Depression Verified 07/25/22 12:42 " paroxetine HCl [From Paxil] AdvReac "Depressed" Verified 07/25/22 12:42 sertraline HCl [From Zoloft] AdvReac Fatigue Verified 07/25/22 12:42 Orapcgr-VPP-UgT Reductase AdvReac Muscle/Joint Verified 07/25/22 12:42 Inhibitor Pain [Wrbooyc-Jfn-Uqz Reductase Inhibitor] sumatriptan AdvReac Palpitation Verified 07/25/22 12:42 s venlafaxine [From Effexor] AdvReac Tachycardia Verified 07/25/22 12:42 hay Allergy Dyspnea Uncoded 07/25/22 12:42 lysol Allergy Dyspnea Uncoded 07/25/22 12:42 Review of Systems ROS Statement: Those systems with pertinent positive or pertinent negative responses have been documented in the HPI. ROS Other: All systems not noted in ROS Statement are negative. Past Medical History Past Medical History: Asthma, Coronary Artery Disease (CAD), Heart Failure, COPD, CVA/TIA, Diabetes Mellitus, GERD/Reflux, Hearing Disorder / Deafness, Hyperlipidemia, Hypertension, Myocardial Infarction ([place]), Osteoarthritis (OA), Pneumonia, Seizure Disorder, Sleep Apnea/CPAP/BIPAP, Thyroid Disorder Additional Past Medical History / Comment(s): additional hx: right bundle branch block,barretts esophagus, migraines, deanna hearing aids, lung nodules, fatty liver, pulmonary hypertension, heart murmur,obesity, IBS, RLS, arthritis, ADHD, DJD, anemia, lactose intolerance; last seizure 21 years ago, kidney stones x2, covid 07/08; CHF; TIA in 2019; two heart attacks 2011 and 2018 Last Myocardial Infarction Date:: History of Any Multi-Drug Resistant Organisms: None Reported Date of last positivie culture/infection: November 2020 MDRO Source:: Abdomen Past Surgical History: Bowel Resection, Cholecystectomy, Heart Catheterization With Stent, Hysterectomy Additional Past Surgical History / Comment(s): breast biopsy,esophageal surgery - 2002, Colostomy Apr 2020, colostomy reversed october 2020 Past Anesthesia/Blood Transfusion Reactions: Postoperative Nausea & Vomiting (PONV) Additional Past Anesthesia/Blood Transfusion Reaction / Comment(s): gets nauseous at times; patient has had blood transfusions without no reactions Date of Last Stent Placement:: 08/01/2018 Past Psychological History: Anxiety, Depression Smoking Status: Never smoker Past Alcohol Use History: None Reported Past Drug Use History: None Reported - Past Family History Mother History Unknown: Yes Family Medical History: Congestive Heart Failure (CHF), Myocardial Infarction ([place]) Additional Family Medical History / Comment(s): 77 Father History Unknown: Yes Family Medical History: COPD, Myocardial Infarction ([place]) Additional Family Medical History / Comment(s): at 56 Sister(s) History Unknown: Yes Family Medical History: Myocardial Infarction ([place]) Additional Family Medical History / Comment(s): at 56 Brother(s) Family Medical History: Cancer Additional Family Medical History / Comment(s): colon cancer General Exam - General Exam Comments Initial Comments: GENERAL: Patient is well-developed and well-nourished. Patient is nontoxic and well- hydrated and is in mild distress. ENT: Neck is soft and supple. No significant lymphadenopathy is noted. Oropharynx is clear. Moist mucous membranes. Neck has full range of motion without eliciting any pain. EYES: The sclera were anicteric and conjunctiva were pink and moist. Extraocular movements were intact and pupils were equal round and reactive to light. Eyelids were unremarkable. PULMONARY: Unlabored respirations. Good breath sounds bilaterally. No audible rales rhonchi or wheezing was noted. CARDIOVASCULAR: There is a regular rate and rhythm without any murmurs gallops or rubs. ABDOMEN: Soft and nontender with normal bowel sounds. SKIN: Skin is clear with no lesions or rashes and otherwise unremarkable. NEUROLOGIC: Patient is alert and oriented x3. Cranial nerves II through XII are grossly intact. Motor and sensory are also intact. Normal speech, volume and content. Symmetrical smile. Cerebellar exam grossly intact. Patient becomes very dizzy with the movement of her head left to right. minimal nystagmus when looking to the right MUSCULOSKELETAL: Normal extremities with adequate strength and full range of motion. LYMPHATICS: No significant lymphadenopathy is noted PSYCHIATRIC: Normal psychiatric evaluation. Limitations: no limitations Course Vital Signs 07/25/22 07/25/22 07/25/22 11:56 12:22 12:44 Temperature 98.1 F 97.9 F Pulse Rate 79 71 Pulse Rate [ 77 Sound Technician Supervisor ] Respiratory 22 18 Rate Blood Pressure 158/101 158/77 O2 Sat by Pulse 96 Oximetry 07/25/22 13:59 Temperature Pulse Rate 77 Pulse Rate [ Sound Technician Supervisor ] Respiratory 18 Rate Blood Pressure 145/87 O2 Sat by Pulse 96 Oximetry Medical Decision Making - Medical Decision Making EKG was interpreted by myself. EKG shows a sinus rhythm 71 bpm [place] interval is 163 QRS 144 Q-T intervals 416 QTC is 439. Patient's EKG shows a right bundle branch block. Was pt. sent in by a medical professional or institution (PATRICIA Arango, SENIOR MEDICAL TECHNOLOGIST, urgent care, hospital, or usp...) When possible be specific @ -No Did you speak to anyone other than the patient for history (EMS, parent, family, police, friend...)? What history was obtained from this source @ -No Did you review nursing and triage notes (agree or disagree)? Why? @ -I reviewed and agree with nursing and triage notes Were old charts reviewed (outside hosp., previous admission, EMS record, old EKG, old radiological studies, urgent care reports/EKG's, usp records)? Report findings @ -I reviewed prior charts prior laboratory this patient. Differential Diagnosis (chest pain, altered mental status, abdominal pain women, abdominal pain men, vaginal bleeding, weakness, fever, dyspnea, syncope, headache, dizziness, GI bleed, back pain, seizure, CVA, palpatations, mental health, musculoskeletal)? @ -Differential Dizziness: Benign paroxysmal positional Vertigo, Menieres disease, otitis media, acoustic neuroma, vertebrobasilar insufficiency, cerebellar stroke, encephalitis, hypovolemic, arrhythmia, coronary artery syndrome, anemia, this is not meant to be an all-inclusive list EKG interpreted by me (3pts min.). @ -As above X-rays interpreted by me (1pt min.). @ -Chest x-ray shows no acute abnormality CT interpreted by me (1pt min.). @ -None done U/S interpreted by me (1pt. min.). @ -None done What testing was considered but not performed or refused? (CT, X-rays, U/S, labs)? Why? @ -None What meds were considered but not given or refused? Why? @ -None Did you discuss the management of the patient with other professionals (professionals i.e. PATRICIA Arango, SENIOR MEDICAL TECHNOLOGIST, lab, RT, psych nurse, social science professor, commodity supervisor, teacher, aoc plans intelligence officer chief, shelter case manager)? Give summary @ -No Was smoking cessation discussed for >3mins.? @ -No Was critical care preformed (if so, how long)? @ -No Were there social determinants of health that impacted care today? How? (Homelessness, low income, unemployed, alcoholism, drug addiction, transportation, low edu. Level, literacy, decrease access to med. care, shelter, rehab)? @ -No Was there de-escalation of care discussed even if they declined (Discuss DNR or withdrawal of care, Hospice)? DNR status @ -No What co-morbidities impacted this encounter? (DM, HTN, Smoking, COPD, CAD, Cancer, CVA, ARF, Chemo, Hep., AIDS, mental health diagnosis, sleep apnea, morbid obesity)? @ -None Was patient admitted / discharged? Hospital course, mention meds given and route, prescriptions, significant lab abnormalities, going to OR and other per tinent info. @ -Patient was given Antivert and I went back and reevaluated her dizziness was much improved. Patient also is hypomagnesemic at 1.3 she received 2 g of magnesium sulfate. Patient stated she felt good enough to go home so she will be discharged home. Patient's blood pressure was relatively normal and so I gave her no medicine for blood pressure Undiagnosed new problem with uncertain prognosis? @ -No Drug Therapy requiring intensive monitoring for toxicity (Heparin, Nitro, Insulin, Cardizem)? @ -No Were any procedures done? @ -No Diagnosis/symptom? @ -Vertigo Acute, or Chronic, or Acute on Chronic? @ -Acute Uncomplicated (without systemic symptoms) or Complicated (systemic symptoms)? @ -Complicated Side effects of treatment? @ -No Exacerbation, Progression, or Severe Exacerbation? @ -No Poses a threat to life or bodily function? How? (Chest pain, [place], [place], pneumonia, PE, COPD, DKA, ARF, appy, cholecystitis, CVA, Diverticulitis, Homicidal, Suicidal, threat to staff... and all critical care pts) @ -No Diagnosis/symptom? @ -Hypomagnesemia Acute, or Chronic, or Acute on Chronic? @ -Acute Uncomplicated (without systemic symptoms) or Complicated (systemic symptoms)? @ -Uncomplicated Side effects of treatment? @ -none Exacerbation, Progression, or Severe Exacerbation] @ -no Poses a threat to life or bodily function? @ -no - Lab Data Result diagrams: 07/25/22 12:41 07/25/22 12:41 Lab Results 07/25/22 07/25/22 07/25/22 Range/Units 12:41 12:41 12:41 WBC 9.0 (3.8-10.6) k/uL RBC 5.05 (3.80-5.40) m/uL Hgb 13.2 (11.4-16.0) gm/dL Hct 40.1 (34.0-46.0) % MCV 79.4 L (80.0-100.0) fL MCH 26.2 (25.0-35.0) pg MCHC 33.0 (31.0-37.0) g/dL RDW 15.2 (11.5-15.5) % Plt Count 263 (150-450) k/uL MPV 7.4 Neutrophils % 74 % Lymphocytes % 20 % Monocytes % 3 % Eosinophils % 2 % Basophils % 0 % Neutrophils # 6.6 (1.3-7.7) k/uL Lymphocytes # 1.8 (1.0-4.8) k/uL Monocytes # 0.3 (0-1.0) k/uL Eosinophils # 0.2 (0-0.7) k/uL Basophils # 0.0 (0-0.2) k/uL PT 9.9 (9.0-12.0) sec INR 0.9 (<1.2) APTT 22.3 (22.0-30.0) sec Sodium 136 L (137-145) mmol/L Potassium 4.7 (3.5-5.1) mmol/L Chloride 101 (98-107) mmol/L Carbon Dioxide 21 L (22-30) mmol/L Anion Gap 14 mmol/L BUN 16 (7-17) mg/dL Creatinine 0.75 (0.52-1.04) mg/dL Est GFR (CKD-EPI)AfAm >90 (>60 ml/min/1.73 sqM) Est GFR (CKD-EPI)NonAf 85 (>60 ml/min/1.73 sqM) Glucose 187 H (74-99) mg/dL Calcium 9.4 (8.4-10.2) mg/dL Magnesium 1.3 L (1.6-2.3) mg/dL Total Bilirubin 0.8 (0.2-1.3) mg/dL AST 23 (14-36) U/L ALT 26 (4-34) U/L Alkaline Phosphatase 86 (38-126) U/L Troponin I (0.000-0.034) ng/mL Total Protein 7.6 (6.3-8.2) g/dL Albumin 4.6 (3.5-5.0) g/dL Influenza Type A (PCR) (Not Detectd) Influenza Type B (PCR) (Not Detectd) RSV (PCR) (Not Detectd) SARS-CoV-2 (PCR) (Not Detectd) 07/25/22 07/25/22 Range/Units 12:41 12:41 WBC (3.8-10.6) k/uL RBC (3.80-5.40) m/uL Hgb (11.4-16.0) gm/dL Hct (34.0-46.0) % MCV (80.0-100.0) fL MCH (25.0-35.0) pg MCHC (31.0-37.0) g/dL RDW (11.5-15.5) % Plt Count (150-450) k/uL MPV Neutrophils % % Lymphocytes % % Monocytes % % Eosinophils % % Basophils % % Neutrophils # (1.3-7.7) k/uL Lymphocytes # (1.0-4.8) k/uL Monocytes # (0-1.0) k/uL Eosinophils # (0-0.7) k/uL Basophils # (0-0.2) k/uL PT (9.0-12.0) sec INR (<1.2) APTT (22.0-30.0) sec Sodium (137-145) mmol/L Potassium (3.5-5.1) mmol/L Chloride (98-107) mmol/L Carbon Dioxide (22-30) mmol/L Anion Gap mmol/L BUN (7-17) mg/dL Creatinine (0.52-1.04) mg/dL Est GFR (CKD-EPI)AfAm (>60 ml/min/1.73 sqM) Est GFR (CKD-EPI)NonAf (>60 ml/min/1.73 sqM) Glucose (74-99) mg/dL Calcium (8.4-10.2) mg/dL Magnesium (1.6-2.3) mg/dL Total Bilirubin (0.2-1.3) mg/dL AST (14-36) U/L ALT (4-34) U/L Alkaline Phosphatase (38-126) U/L Troponin I <0.012 (0.000-0.034) ng/mL Total Protein (6.3-8.2) g/dL Albumin (3.5-5.0) g/dL Influenza Type A (PCR) Not Detected (Not Detectd) Influenza Type B (PCR) Not Detected (Not Detectd) RSV (PCR) Not Detected (Not Detectd) SARS-CoV-2 (PCR) Not Detected (Not Detectd) Disposition Clinical Impression: Hypomagnesemia, Vertigo Disposition: HOME SELF-CARE Condition: Good Instructions (If sedation given, give patient instructions): Vertigo (ED), Hypomagnesemia (ED) Prescriptions: Meclizine [Antivert] 25 mg PO TID #20 tab Is patient prescribed a controlled substance at d/c from ED?: No Referrals: León Martin MD [Primary Care Provider] - 1-2 days Time of Disposition: 14:52
[2022-07-25] MEDS ORDERED: MECLIZINE 25 MG TAB PO STA (13:34)
[2022-07-25] MEDS: MAGNESIUM SULFATE-D5W PMX 1 GM in DEXTROSE/WATER 1 100ML.BAG IVPB SCH ×2 (13:56→15:12)
[2022-07-25 16:19] VITALS: BP 148/89; PULSE 78
== END 2022-07-25 16:30 | disposition home or self-care (01) ==
LOC: EC 11:52 → SUPCPDRO 11:52 → EC 16:30
DX: E83.42 Hypomagnesemia (principal); R42 Dizziness and giddiness; J44.9 Chronic obstructive pulmonary disease, unspecified; K21.9 Gastro-esophageal reflux disease without esophagitis; I11.0 Hypertensive heart disease with heart failure; I50.9 Heart failure, unspecified; E11.9 Type 2 diabetes mellitus without complications; E78.5 Hyperlipidemia, unspecified; I25.2 Old myocardial infarction; M19.90 Unspecified osteoarthritis, unspecified site; Z86.73 Personal history of transient ischemic attack (TIA), and cerebral infarction without residual deficits; F41.9 Anxiety disorder, unspecified; F32.A Depression, unspecified; Z86.16 Personal history of COVID-19; Z88.7 Allergy status to serum and vaccine; Z88.1 Allergy status to other antibiotic agents; Z88.5 Allergy status to narcotic agent; Z88.8 Allergy status to other drugs, medicaments and biological substances; Z91.030 Bee allergy status; Z91.048 Other nonmedicinal substance allergy status; Z79.4 Long term (current) use of insulin; Z79.84 Long term (current) use of oral hypoglycemic drugs; Z79.899 Other long term (current) drug therapy; Z79.51 Long term (current) use of inhaled steroids; Z20.822 Contact with and (suspected) exposure to COVID-19
CPT/HCPCS: 36415; 93005; 80053; 83735; 84484; 85025; 85610; 85730; 87636; 71046; 99284; 96365; 96366; J3475

== ENCOUNTER 2023-05-11 08:42 | Emergency (ER) | payer OTHER ==
[2023-05-11 09:08] VITALS: TEMP 98
[2023-05-11] MEDS ORDERED: SODIUM CHLORIDE 0.9% 500 ML 500 ML IV ONE (10:26)
[2023-05-11] MEDS ORDERED: METOCLOPRAMIDE 5 MG/ML 2 ML VIAL IVP STA (10:26)
[2023-05-11] MEDS ORDERED: ONDANSETRON 4 MG/2 ML VIAL IVP STA (10:26)
[2023-05-11] MEDS ORDERED: ACETAMINOPHEN IV (For NPO) 1,000 MG in EMPTY BAG 1 BAG IVPB STA (10:28)
[2023-05-11 10:40] LABS: Basophils % (A) 1 %; Eosinophils # (A) 0.2 k/uL (0-0.7); Eosinophils % (A) 2 %; HCT 38.2 % (34.0-46.0); HGB 12.6 gm/dL (11.4-16.0); Lymphocytes # (A) 1.5 k/uL (1.0-4.8); Lymphocytes % (A) 20 %; MCH 25.9 pg (25.0-35.0); MCHC 33.1 g/dL (31.0-37.0); MCV 78.2 fL (80.0-100.0); Mean Platelet Volume 7.1; Monocytes # (A) 0.2 k/uL (0-1.0); Monocytes % (A) 3 %; Neutrophils # (A) 5.7 k/uL (1.3-7.7); Neutrophils % (A) 73 %; Platelet Count 245 k/uL (150-450); RBC 4.88 m/uL (3.80-5.40); RDW 15.1 % (11.5-15.5); WBC 7.8 k/uL (3.8-10.6)
[2023-05-11 10:52] LABS: ALT 25 U/L (4-34); AST 32 U/L (14-36); African American GFR (CKD) >90 (>60 ml/min/1.73 sqM); Alkaline Phosphatase 105 U/L (38-126); Anion Gap 7 mmol/L; Blood Urea Nitrogen 14 mg/dL (7-17); Calcium 9.5 mg/dL (8.4-10.2); Carbon Dioxide 26 mmol/L (22-30); Chloride 103 mmol/L (98-107); Glucose 169 mg/dL (74-99); Non-African American GFR(CKD) >90 (>60 ml/min/1.73 sqM); Potassium 4.9 mmol/L (3.5-5.1); Sodium 136 mmol/L (137-145); Total Bilirubin 0.5 mg/dL (0.2-1.3); Total Protein 6.8 g/dL (6.3-8.2)
--- NOTE | 2023-05-11 11:00 | CT ---
EXAMINATION TYPE: CT brain wo con DATE OF EXAM: 05/11/2023 COMPARISON: 05/23/2022 INDICATION: Headache DLP: 1095.4 mGycm, Automated exposure control for dose reduction was used. CONTRAST: None CT of the brain is performed utilizing 3 mm thick sections through the posterior fossa and 3 mm thick sections through the remaining calvarium. Study is performed within 24 hours of arrival to the hosp [place]. No abnormal hyperdensity is present to suggest an acute intracranial hemorrhage. No mass lesion is evident. No acute infarcts are evident. Ventricles and sulci are appropriate for the patient age. Paranasal sinuses and mastoid air cells within the [id number] are clear. IMPRESSION: 1. No acute intracranial process. Follow-up MRI can be performed as clinically indicated.
--- NOTE | 2023-05-11 11:21 | ED ---
General Adult HPI - General Chief complaint: Nausea/Vomiting/Diarrhea Stated complaint: Headache Time Seen by Provider: 05/11/23 10:00 Source: patient, EMS, RN notes reviewed, old records reviewed Mode of arrival: EMS Limitations: no limitations - History of Present Illness Initial comments: This is a 62-year-old female who presents to the emergency department with history of diabetes and high blood pressure pulmonary hypertension and a small aneurysm in her brain which neurosurgery stated there was no operative intervention needed. Patient comes in today because she was experiencing headache for the last couple of days and is she is nauseated. Patient has a fever chills. Patient has any numbness weakness. Patient has any visual disturbance. Patient Nuys chest pain difficult breathing shortness of breath. - Related Data Home Medications Medication Instructions Recorded Confirmed Loratadine [Claritin] 10 mg PO DAILY 06/09/15 07/25/22 EPINEPHrine (Auto Inject) [Epipen] 0.3 mg IM ONCE PRN 04/19/20 07/25/22 Insulin Glargine,Hum.rec.anlog 35 unit SQ HS 04/19/20 07/25/22 [Lantus Solostar Pen] Losartan [Cozaar] 50 mg PO BID 04/19/20 07/25/22 Sennosides/Docusate Sodium [Senna 1 tab PO BID PRN 04/19/20 07/25/22 Plus 8.6-50 mg Tablet] dilTIAZem HCL [Cartia Xt] 300 mg PO DAILY 07/14/20 07/25/22 Fluticasone Propion/Salmeterol 1 puff INHALATION RT-BID 07/14/21 07/25/22 [Wixela 250-50 Inhub] Insulin Aspart [NovoLOG Flexpen] 25 units SQ TID-W/MEALS 07/14/21 07/25/22 Atorvastatin [Lipitor] 40 mg PO HS 07/30/21 07/25/22 Cholecalciferol [Vitamin D3 (25 50 mcg PO DAILY 07/30/21 07/25/22 Mcg = 1000 Iu)] Echinacea 400 mg PO DAILY 07/30/21 07/25/22 Power C Gummy 3 tab PO DAILY 07/30/21 07/25/22 metFORMIN HCL [Glucophage] 1,000 mg PO BID 07/30/21 07/25/22 rOPINIRole HCL [Requip] 4 mg PO HS 07/30/21 07/25/22 Acetaminophen [Tylenol 8 Hour] 1,300 mg PO Q8H PRN 10/30/21 07/25/22 Albuterol Inhaler [Ventolin Hfa 2 puff INHALATION RT-QID PRN 10/30/21 07/25/22 Inhaler] Miconazole Nitrate [Lotrimin AF 1 applic TOPICAL DAILY PRN 10/30/21 07/25/22 Powder] Ozempic 0.5mg/0.375ml 0.5 mg SQ MO 10/30/21 07/25/22 Dextrose Chew [Glucose Chew Tab] 4 gm PO TID PRN 03/13/22 07/25/22 Ferrous Sulfate [Iron (65 MG 325 mg PO DAILY 03/13/22 07/25/22 Elemental)] Previous Rx's Medication Instructions Recorded Meclizine [Antivert] 25 mg PO TID #20 tab 07/25/22 Allergies Allergy/AdvReac Type Severity Reaction Status Date / Time ammonia Allergy Dyspnea & Verified 07/25/22 12:42 Passed Out atenolol Allergy Dyspnea, Verified 07/25/22 12:42 Migraine cephalexin [From Keflex] Allergy Dyspnea Verified 07/25/22 12:42 diphtheria,pertussis Allergy Dyspnea & Verified 07/25/22 12:42 (acellular),te Heart [From Boostrix Tdap] Palpitations & Nausea dulaglutide [From Trulicity] Allergy Dyspnea Verified 07/25/22 12:42 exenatide [From Byetta] Allergy Unknown Verified 07/25/22 12:42 feathers Allergy Anaphylaxis Verified 07/25/22 12:42 guaifenesin Allergy Dyspnea Verified 07/25/22 12:42 influenza virus vaccine, Allergy Dyspnea & Verified 07/25/22 12:42 specific Heart Palpitations & Nausea meperidine [From Demerol] Allergy Hives, Verified 07/25/22 12:42 Rash, Hypotension meperidine HCl [From Demerol] Allergy Anaphylaxis Verified 07/25/22 12:42 mint Allergy Anaphylaxis Verified 07/25/22 12:42 mold Allergy Anaphylaxis Verified 07/25/22 12:42 nifedipine [From Procardia] Allergy Unknown Verified 07/25/22 12:42 pneumococcal vaccine Allergy Dyspnea & Verified 07/25/22 12:42 Heart Palpitations & Nausea simvastatin [From Zocor] Allergy Muscle/Joint Verified 07/25/22 12:42 Pain venom-honey bee Allergy Anaphylaxis Verified 07/25/22 12:42 [bee venom (honey bee)] wool Allergy Anaphylaxis Verified 07/25/22 12:42 zolpidem [From Ambien] Allergy Dyspnea, Verified 07/25/22 12:42 Migraine zolpidem tartrate Allergy Dyspnea, Verified 07/25/22 12:42 [From Ambien] Migraine zoster vaccine live Allergy Dyspnea & Verified 07/25/22 12:42 Heart Palpitations & Nausea amlodipine AdvReac Headache Verified 07/25/22 12:42 barium sulfate AdvReac rectal Verified 07/25/22 12:42 bleeding diphenhydramine AdvReac Hypertensio Verified 07/25/22 12:42 n fexofenadine [From Elena] AdvReac Migraine Verified 07/25/22 12:42 fexofenadine HCl AdvReac Muscle Pain Verified 07/25/22 12:42 [From Elena] fluoxetine AdvReac "Feeling Verified 07/25/22 12:42 Irritable" fluvastatin AdvReac Muscle Pain Verified 07/25/22 12:42 hydrochlorothiazide AdvReac Tachycardia Verified 07/25/22 12:42 isosorbide [From Imdur] AdvReac Migraine Verified 07/25/22 12:42 lisinopril AdvReac Fatigue, Verified 07/25/22 12:42 Cough modafinil AdvReac Headache Verified 07/25/22 12:42 nitroglycerin AdvReac Dizziness Verified 07/25/22 12:42 ondansetron [From Zofran] AdvReac Nausea Verified 07/25/22 12:42 paroxetine [From Paxil] AdvReac "Depression Verified 07/25/22 12:42 " paroxetine HCl [From Paxil] AdvReac "Depressed" Verified 07/25/22 12:42 sertraline HCl [From Zoloft] AdvReac Fatigue Verified 07/25/22 12:42 Qallbbm-KCP-OjD Reductase AdvReac Muscle/Joint Verified 07/25/22 12:42 Inhibitor Pain [Aiwrnil-Vwr-Fve Reductase Inhibitor] sumatriptan AdvReac Palpitation Verified 07/25/22 12:42 s venlafaxine [From Effexor] AdvReac Tachycardia Verified 07/25/22 12:42 hay Allergy Dyspnea Uncoded 07/25/22 12:42 lysol Allergy Dyspnea Uncoded 07/25/22 12:42 Review of Systems ROS Statement: Those systems with pertinent positive or pertinent negative responses have been documented in the HPI. ROS Other: All systems not noted in ROS Statement are negative. Past Medical History Past Medical History: Asthma, Coronary Artery Disease (CAD), Heart Failure, COPD, CVA/TIA, Diabetes Mellitus, GERD/Reflux, Hearing Disorder / Deafness, Hype rlipidemia, Hypertension, Myocardial Infarction (CT), Osteoarthritis (OA), Pneumonia, Seizure Disorder, Sleep Apnea/CPAP/BIPAP, Thyroid Disorder Additional Past Medical History / Comment(s): additional hx: right bundle branch block,barretts esophagus, migraines, deanna hearing aids, lung nodules, fatty liver, pulmonary hypertension, heart murmur,obesity, IBS, RLS, arthritis, ADHD, DJD, anemia, lactose intolerance; last seizure 21 years ago, kidney stones x2, covid 07/08; CHF; TIA in 2019; two heart attacks 2011 and 2018 Last Myocardial Infarction Date:: History of Any Multi-Drug Resistant Organisms: None Reported Date of last positivie culture/infection: November 2020 MDRO Source:: Abdomen Past Surgical History: Bowel Resection, Cholecystectomy, Heart Catheterization With Stent, Hysterectomy Additional Past Surgical History / Comment(s): breast biopsy,esophageal surgery - 2002, Colostomy Apr 2020, colostomy reversed october 2020 Past Anesthesia/Blood Transfusion Reactions: Postoperative Nausea & Vomiting (PONV) Additional Past Anesthesia/Blood Transfusion Reaction / Comment(s): gets nauseous at times; patient has had blood transfusions without no reactions Date of Last Stent Placement:: 08/01/2018 Past Psychological History: Anxiety, Depression Smoking Status: Never smoker Past Alcohol Use History: None Reported Past Drug Use History: None Reported - Past Family History Mother History Unknown: Yes Family Medical History: Congestive Heart Failure (CHF), Myocardial Infarction (CT) Additional Family Medical History / Comment(s): 77 Father History Unknown: Yes Family Medical History: COPD, Myocardial Infarction (CT) Additional Family Medical History / Comment(s): at 56 Sister(s) History Unknown: Yes Family Medical History: Myocardial Infarction (CT) Additional Family Medical History / Comment(s): at 56 Brother(s) Family Medical History: Cancer Additional Family Medical History / Comment(s): colon cancer General Exam - General Exam Comments Initial Comments: GENERAL: Patient is well-developed and well-nourished. Patient is nontoxic and well- hydrated and is in mild distress. ENT: Neck is soft and supple. No significant lymphadenopathy is noted. Oropharynx is clear. Moist mucous membranes. Neck has full range of motion without eliciting any pain. EYES: The sclera were anicteric and conjunctiva were pink and moist. Extraocular movements were intact and pupils were equal round and reactive to light. Eyelids were unremarkable. PULMONARY: Unlabored respirations. Good breath sounds bilaterally. No audible rales rhonchi or wheezing was noted. CARDIOVASCULAR: There is a regular rate and rhythm without any murmurs gallops or rubs. ABDOMEN: Soft and nontender with normal bowel sounds. SKIN: Skin is clear with no lesions or rashes and otherwise unremarkable. NEUROLOGIC: Patient is alert and oriented x3. Cranial nerves II through XII are grossly intact. Motor and sensory are also intact. Normal speech, volume and content. Symmetrical smile. MUSCULOSKELETAL: Normal extremities with adequate strength and full range of motion. LYMPHATICS: No significant lymphadenopathy is noted PSYCHIATRIC: Normal psychiatric evaluation. Limitations: no limitations Course Vital Signs 05/11/23 05/11/23 08:48 10:19 Temperature 98 F Pulse Rate 73 71 Respiratory 18 16 Rate Blood Pressure 185/86 169/94 O2 Sat by Pulse 95 98 Oximetry Medical Decision Making - Medical Decision Making EKG is interpreted by myself EKG shows a sinus rhythm at 66 bpm. It was 166 QRS 141 QT interval 433 QTc is 447. Patient's EKG has a right bundle branch block. Was pt. sent in by a medical professional or institution (, PA, HEAD OF OPERATION AND LOGISTICS, urgent care, hospital, or [facility]...) When possible be specific @ -No Did you speak to anyone other than the patient for history (EMS, parent, family, police, friend...)? What history was obtained from this source @ -No Did you review nursing and triage notes (agree or disagree)? Why? @ -I reviewed and agree with nursing and triage notes Were old charts reviewed (outside hosp., previous admission, EMS record, old EKG, old radiological studies, urgent care reports/EKG's, [facility] records)? Report findings @ -I reviewed prior charts that the patient brought with her about her CT scans lab work and cardiology workup Differential Diagnosis (chest pain, altered mental status, abdominal pain women, abdominal pain men, vaginal bleeding, weakness, fever, dyspnea, syncope, headache, dizziness, GI bleed, back pain, seizure, CVA, palpatations, mental health, musculoskeletal)? @ -Differential Headache: Migraine, tension, cluster, carbon monoxide, central venous thrombosis, pension karma temporal arteritis, acute closure glaucoma, intercranial hemorrhage, mastoiditis, sinusitis, head injury, this is not meant to be an all-inclusive list. EKG interpreted by me (3pts min.). @ -As above X-rays interpreted by me (1pt min.). @ -None done CT interpreted by me (1pt min.). @ -CT of the brain shows no acute abnormality U/S interpreted by me (1pt. min.). @ -None done What testing was considered but not performed or refused? (CT, X-rays, U/S, labs)? Why? @ -None What meds were considered but not given or refused? Why? @ -None Did you discuss the management of the patient with other professionals (professionals i.e. , PA, HEAD OF OPERATION AND LOGISTICS, lab, RT, psych nurse, sr. social media & mobile manager, wood barker, teacher, forest officer, hospice case manager)? Give summary @ -No Was smoking cessation discussed for >3mins.? @ -No Was critical care preformed (if so, how long)? @ -No Were there social determinants of health that impacted care today? How? (Homelessness, low income, unemployed, alcoholism, drug addiction, transportation, low edu. Level, literacy, decrease access to med. care, snf, rehab)? @ -No Was there de-escalation of care discussed even if they declined (Discuss DNR or withdrawal of care, Hospice)? DNR status @ -No What co-morbidities impacted this encounter? (DM, HTN, Smoking, COPD, CAD, Cancer, CVA, ARF, Chemo, Hep., AIDS, mental health diagnosis, sleep apnea, morbid obesity)? @ -None Was patient admitted / discharged? Hospital course, mention meds given and route, prescriptions, significant lab abnormalities, going to OR and other pertinent info. @ -Patient was given Reglan for nausea and some IV fluids and also received Ofirmev. Patient was feeling better and no longer nauseated. Patient will be discharged home to follow-up Undiagnosed new problem with uncertain prognosis? @ -No Drug Therapy requiring intensive monitoring for toxicity (Heparin, Nitro, Insulin, Cardizem)? @ -No Were any procedures done? @ -No Diagnosis/symptom? @ -Headache Acute, or Chronic, or Acute on Chronic? @ -Acute Uncomplicated (without systemic symptoms) or Complicated (systemic symptoms)? @ -Complicated Side effects of treatment? @ -No Exacerbation, Progression, or Severe Exacerbation? @ -No Poses a threat to life or bodily function? How? (Chest pain, USA, CT, pneumonia, PE, COPD, DKA, ARF, appy, cholecystitis, CVA, Diverticulitis, Homicidal, Suicidal, threat to staff... and all critical care pts) @ -No - Lab Data Result diagrams: 05/11/23 10:31 05/11/23 10:31 Lab Results 05/11/23 05/11/23 Range/Units 10:31 10:31 WBC 7.8 (3.8-10.6) k/uL RBC 4.88 (3.80-5.40) m/uL Hgb 12.6 (11.4-16.0) gm/dL Hct 38.2 (34.0-46.0) % MCV 78.2 L (80.0-100.0) fL MCH 25.9 (25.0-35.0) pg MCHC 33.1 (31.0-37.0) g/dL RDW 15.1 (11.5-15.5) % Plt Count 245 (150-450) k/uL MPV 7.1 Neutrophils % 73 % Lymphocytes % 20 % Monocytes % 3 % Eosinophils % 2 % Basophils % 1 % Neutrophils # 5.7 (1.3-7.7) k/uL Lymphocytes # 1.5 (1.0-4.8) k/uL Monocytes # 0.2 (0-1.0) k/uL Eosinophils # 0.2 (0-0.7) k/uL Basophils # 0.0 (0-0.2) k/uL Sodium 136 L (137-145) mmol/L Potassium 4.9 (3.5-5.1) mmol/L Chloride 103 (98-107) mmol/L Carbon Dioxide 26 (22-30) mmol/L Anion Gap 7 mmol/L BUN 14 (7-17) mg/dL Creatinine 0.69 (0.52-1.04) mg/dL Est GFR (CKD-EPI)AfAm >90 (>60 ml/min/1.73 sqM) Est GFR (CKD-EPI)NonAf >90 (>60 ml/min/1.73 sqM) Glucose 169 H (74-99) mg/dL Calcium 9.5 (8.4-10.2) mg/dL Total Bilirubin 0.5 (0.2-1.3) mg/dL AST 32 (14-36) U/L ALT 25 (4-34) U/L Alkaline Phosphatase 105 (38-126) U/L Total Protein 6.8 (6.3-8.2) g/dL Albumin 4.0 (3.5-5.0) g/dL Disposition Clinical Impression: Headache Disposition: HOME SELF-CARE Condition: Good Instructions (If sedation given, give patient instructions): Acute Headache (ED) Is patient prescribed a controlled substance at d/c from ED?: No Referrals: Nonstaff,Physician [Primary Care Provider] - 1-2 days Time of Disposition: 11:21
[2023-05-11 12:06] VITALS: BP 136/78; PULSE 90; RESP 18
== END 2023-05-11 11:56 | disposition home or self-care (01) ==
LOC: EC 08:42
DX: R51.9 Headache, unspecified (principal); I45.10 Unspecified right bundle-branch block; E11.9 Type 2 diabetes mellitus without complications; I11.0 Hypertensive heart disease with heart failure; I50.9 Heart failure, unspecified; I25.2 Old myocardial infarction; I25.10 Atherosclerotic heart disease of native coronary artery without angina pectoris; E66.9 Obesity, unspecified; J44.89 Other specified chronic obstructive pulmonary disease; E78.5 Hyperlipidemia, unspecified; Z68.42 Body mass index [BMI] 45.0-49.9, adult; Z79.4 Long term (current) use of insulin; Z79.84 Long term (current) use of oral hypoglycemic drugs; Z79.51 Long term (current) use of inhaled steroids; Z79.899 Other long term (current) drug therapy; Z88.5 Allergy status to narcotic agent; Z88.7 Allergy status to serum and vaccine; Z88.8 Allergy status to other drugs, medicaments and biological substances; Z91.030 Bee allergy status; Z88.1 Allergy status to other antibiotic agents; Z91.09 Other allergy status, other than to drugs and biological substances; Z86.16 Personal history of COVID-19; Z86.73 Personal history of transient ischemic attack (TIA), and cerebral infarction without residual deficits; Z90.49 Acquired absence of other specified parts of digestive tract
CPT/HCPCS: 36415; 80053; 85025; 70450; 99285; 96374; 96375 ×2; J2765; J2405; J0131

== ENCOUNTER → 2023-06-16 | Outpatient (CLI) | payer OTHER ==
--- NOTE | 2023-06-16 21:39 | MM ---
Reason for Exam: Screening (asymptomatic). Last mammogram was performed 1 year(s) and 8 month(s) ago. Patient History: Menarche at age 9. First Full-Term at age 20. Hysterectomy at age 38. Patient used Estrogen for 5 years. Benign Excisional Biopsy on the right side. Risk Values: Vane 5 year model risk: 1.9%. NCI Lifetime model risk: 7.5%. Prior Study Comparison: 09/09/2016 Bilateral Screening Mammogram, [facility]. 03/14/2018 Bilateral Screening Mammogram, [facility]. 09/29/2021 Bilateral MG screening mammo w CAD, [facility]. Tissue Density: There are scattered fibroglandular densities. Findings: Analyzed By CAD. The pattern is stable. There is focal asymmetry in the upper outer mid right breast. A few scattered benign punctate calcifications are scattered bilaterally. No suspicious groups of microcalcifications, spiculated or lobular masses, architectural distortion or other secondary signs of malignancy are mammographically apparent. Overall Assessment: Benign, BI-RAD 2 Management: Screening Mammogram of both breasts in 1 year. A negative mammogram report should not preclude additional follow up of suspicious palpable abnormalities. Patient should continue monthly self breast exam. A clinical breast exam by your physician is recommended on an annual basis and results should be correlated with mammographic findings. Electronically signed and approved by: Markell Melendez D.O. Radiologis
== END | disposition home or self-care (01) ==
LOC: RADMAMWWP 07:41
PROVIDERS: ATTEND General Practice
DX: Z12.31 Encounter for screening mammogram for malignant neoplasm of breast (principal)
CPT/HCPCS: 77067

== ENCOUNTER 2023-06-24 13:46 | Emergency (ER) | payer OTHER ==
--- NOTE | 2023-06-24 14:14 | ED ---
General Adult HPI - General Chief complaint: Recheck/Abnormal Lab/Rx Stated complaint: Hypertension Time Seen by Provider: 06/24/23 14:00 Source: patient, EMS, RN notes reviewed, old records reviewed Mode of arrival: EMS Limitations: no limitations - History of Present Illness Initial comments: This is a 62-year-old female with a past medical history significant for coronary artery disease. Patient states she had a second stent placed in March. Ever since then she has been having a little bit elevated blood pressure and headaches and feeling somewhat short of breath. Patient states that is not changed today but today she had a blood pressure of 180/90 she called the doctor's office and they told to come to the emergency department. Patient denies any change in the headache. Patient denies any blurred vision. Patient denies any chest pain or palpitations. Patient states she does occasionally feel short of breath and she does have a headache which she states has been ongoing since she had the second stent placed. Patient states she did take her blood pressure medications today - Related Data Home Medications Medication Instructions Recorded Confirmed Loratadine [Claritin] 10 mg PO DAILY 06/09/15 06/24/23 EPINEPHrine (Auto Inject) [Epipen] 0.3 mg IM ONCE PRN 04/19/20 06/24/23 Insulin Glargine,Hum.rec.anlog 24 unit SQ HS 04/19/20 06/24/23 [Lantus Solostar Pen] Losartan [Cozaar] 50 mg PO BID 04/19/20 06/24/23 Sennosides/Docusate Sodium [Senna 1 tab PO BID PRN 04/19/20 06/24/23 Plus 8.6-50 mg Tablet] dilTIAZem HCL [Cartia Xt] 300 mg PO DAILY 07/14/20 06/24/23 Fluticasone Propion/Salmeterol 1 puff INHALATION RT-BID 07/14/21 07/25/22 [Wixela 250-50 Inhub] Insulin Aspart [NovoLOG Flexpen] 12 units SQ TID-W/MEALS 07/14/21 06/24/23 Cholecalciferol [Vitamin D3 (25 50 mcg PO DAILY 07/30/21 06/24/23 Mcg = 1000 Iu)] rOPINIRole HCL [Requip] 4 mg PO HS 07/30/21 06/24/23 Albuterol Inhaler [Ventolin Hfa 2 puff INHALATION RT-QID PRN 10/30/21 06/24/23 Inhaler] Dextrose Chew [Glucose Chew Tab] 4 gm PO TID PRN 03/13/22 06/24/23 Ferrous Sulfate [Iron (65 MG 325 mg PO TID 03/13/22 06/24/23 Elemental)] Aspirin EC [Ecotrin Low Dose] 81 mg PO DAILY 06/24/23 06/24/23 Atorvastatin [Lipitor] 40 mg PO HS 06/24/23 06/24/23 Clopidogrel [Plavix] 75 mg PO DAILY 06/24/23 06/24/23 Omeprazole 20 mg PO DAILY PRN 06/24/23 06/24/23 Semaglutide [Ozempic] 1 mg SQ MO 06/24/23 06/24/23 metFORMIN HCL ER [Glucophage XR] 1,000 mg PO BID 06/24/23 06/24/23 Allergies Allergy/AdvReac Type Severity Reaction Status Date / Time ammonia Allergy Dyspnea & Verified 06/24/23 15:24 Passed Out atenolol Allergy Dyspnea, Verified 06/24/23 15:24 Migraine cephalexin [From Keflex] Allergy Dyspnea Verified 06/24/23 15:24 diphtheria,pertussis Allergy Dyspnea & Verified 06/24/23 15:24 (acellular),te Heart [From Boostrix Tdap] Palpitations & Nausea dulaglutide [From Trulicity] Allergy Dyspnea Verified 06/24/23 15:24 exenatide [From Byetta] Allergy Unknown Verified 06/24/23 15:24 feathers Allergy Anaphylaxis Verified 06/24/23 15:24 guaifenesin Allergy Dyspnea Verified 06/24/23 15:24 influenza virus vaccine, Allergy Dyspnea & Verified 06/24/23 15:24 specific Heart Palpitations & Nausea meperidine [From Demerol] Allergy Hives, Verified 06/24/23 15:24 Rash, Hypotension meperidine HCl [From Demerol] Allergy Anaphylaxis Verified 06/24/23 15:24 mint Allergy Anaphylaxis Verified 06/24/23 15:24 mold Allergy Anaphylaxis Verified 06/24/23 15:24 nifedipine [From Procardia] Allergy Unknown Verified 06/24/23 15:24 pneumococcal vaccine Allergy Dyspnea & Verified 06/24/23 15:24 Heart Palpitations & Nausea simvastatin [From Zocor] Allergy Muscle/Joint Verified 06/24/23 15:24 Pain venom-honey bee Allergy Anaphylaxis Verified 06/24/23 15:24 [bee venom (honey bee)] wool Allergy Anaphylaxis Verified 06/24/23 15:24 zolpidem [From Ambien] Allergy Dyspnea, Verified 06/24/23 15:24 Migraine zolpidem tartrate Allergy Dyspnea, Verified 06/24/23 15:24 [From Ambien] Migraine zoster vaccine live Allergy Dyspnea & Verified 06/24/23 15:24 Heart Palpitations & Nausea amlodipine AdvReac Headache Verified 06/24/23 15:24 barium sulfate AdvReac rectal Verified 06/24/23 15:24 bleeding diphenhydramine AdvReac Hypertensio Verified 06/24/23 15:24 n fexofenadine [From Elena] AdvReac Migraine Verified 06/24/23 15:24 fexofenadine HCl AdvReac Muscle Pain Verified 06/24/23 15:24 [From Elena] fluoxetine AdvReac "Feeling Verified 06/24/23 15:24 Irritable" fluvastatin AdvReac Muscle Pain Verified 06/24/23 15:24 hydrochlorothiazide AdvReac Tachycardia Verified 06/24/23 15:24 isosorbide [From Imdur] AdvReac Migraine Verified 06/24/23 15:24 lisinopril AdvReac Fatigue, Verified 06/24/23 15:24 Cough modafinil AdvReac Headache Verified 06/24/23 15:24 nitroglycerin AdvReac Dizziness Verified 06/24/23 15:24 ondansetron [From Zofran] AdvReac Nausea Verified 06/24/23 15:24 paroxetine [From Paxil] AdvReac "Depression Verified 06/24/23 15:24 " paroxetine HCl [From Paxil] AdvReac "Depressed" Verified 06/24/23 15:24 sertraline HCl [From Zoloft] AdvReac Fatigue Verified 06/24/23 15:24 Wfkjovo-OUN-LqW Reductase AdvReac Muscle/Joint Verified 06/24/23 15:24 Inhibitor Pain [Ywjejnv-Gzy-Vnk Reductase Inhibitor] sumatriptan AdvReac Palpitation Verified 06/24/23 15:24 s venlafaxine [From Effexor] AdvReac Tachycardia Verified 06/24/23 15:24 hay Allergy Dyspnea Uncoded 06/24/23 13:59 lysol Allergy Dyspnea Uncoded 06/24/23 13:59 Review of Systems ROS Statement: Those systems with pertinent positive or pertinent negative responses have been documented in the HPI. ROS Other: All systems not noted in ROS Statement are negative. Past Medical History Past Medical History: Asthma, Coronary Artery Disease (CAD), Heart Failure, COPD, CVA/TIA, Diabetes Mellitus, GERD/Reflux, Hearing Disorder / Deafness, Hyperlipidemia, Hypertension, Myocardial Infarction (ME), Osteoarthritis (OA), Pneumonia, Seizure Disorder, Sleep Apnea/CPAP/BIPAP, Thyroid Disorder Additional Past Medical History / Comment(s): additional hx: right bundle branch block,barretts esophagus, migraines, deanna hearing aids, lung nodules, fatty liver, pulmonary hypertension, heart murmur,obesity, IBS, RLS, arthritis, ADHD, DJD, anemia, lactose intolerance; last seizure 21 years ago, kidney stones x2, covid 07/08; CHF; TIA in 2019; two heart attacks 2011 and 2018 Last Myocardial Infarction Date:: History of Any Multi-Drug Resistant Organisms: MRSA Date of last positivie culture/infection: November 2020 MDRO Source:: Abdomen Past Surgical History: Bowel Resection, Cholecystectomy, Heart Catheterization With Stent, Hysterectomy Additional Past Surgical History / Comment(s): breast biopsy,esophageal surgery - 2002, Colostomy Apr 2020, colostomy reversed october 2020, cardiac stent 04/01/23 Past Anesthesia/Blood Transfusion Reactions: Postoperative Nausea & Vomiting (PONV) Additional Past Anesthesia/Blood Transfusion Reaction / Comment(s): gets nauseous at times; patient has had blood transfusions without no reactions Date of Last Stent Placement:: 08/01/2018 Past Psychological History: Anxiety, Depression Smoking Status: Never smoker Past Alcohol Use History: None Reported Past Drug Use History: None Reported - Past Family History Mother History Unknown: Yes Family Medical History: Congestive Heart Failure (CHF), Myocardial Infarction (ME) Additional Family Medical History / Comment(s): 77 Father History Unknown: Yes Family Medical History: COPD, Myocardial Infarction (ME) Additional Family Medical History / Comment(s): at 56 Sister(s) History Unknown: Yes Family Medical History: Myocardial Infarction (ME) Additional Family Medical History / Comment(s): at 56 Brother(s) Family Medical History: Cancer Additional Family Medical History / Comment(s): colon cancer General Exam - General Exam Comments Initial Comments: GENERAL: Patient is well-developed and well-nourished. Patient is nontoxic and well- hydrated and is in no acute distress. Patient's bilateral blood pressures were almost identical. ENT: Neck is soft and supple. No significant lymphadenopathy is noted. Oropharynx is clear. Moist mucous membranes. Neck has full range of motion without eliciting any pain. EYES: The sclera were anicteric and conjunctiva were pink and moist. Extraocular movements were intact and pupils were equal round and reactive to light. Eyelids were unremarkable. PULMONARY: Unlabored respirations. Good breath sounds bilaterally. No audible rales rhonchi or wheezing was noted. CARDIOVASCULAR: There is a regular rate and rhythm without any murmurs gallops or rubs. ABDOMEN: Soft and nontender with normal bowel sounds. SKIN: Skin is clear with no lesions or rashes and otherwise unremarkable. NEUROLOGIC: Patient is alert and oriented x3. Cranial nerves II through XII are grossly intact. Motor and sensory are also intact. Normal speech, volume and content. Symmetrical smile. MUSCULOSKELETAL: Normal extremities with adequate strength and full range of motion. No lower extremity swelling or edema. No calf tenderness. LYMPHATICS: No significant lymphadenopathy is noted PSYCHIATRIC: Normal psychiatric evaluation. Limitations: no limitations Course Vital Signs 06/24/23 06/24/23 06/24/23 13:48 16:29 17:08 Temperature 97.5 F L Pulse Rate 71 75 74 Respiratory 20 22 20 Rate Blood Pressure 181/95 161/81 150/86 O2 Sat by Pulse 97 95 94 L Oximetry Medical Decision Making - Medical Decision Making EKG is interpreted by ak EKG shows sinus rhythm at 71 bpm ME interval is 177 QRS is 145 QT interval 446 QTc is 469. Patient's EKG shows no ST segment elevation or depression. Right bundle branch block Was pt. sent in by a medical professional or institution (PATRICIA [facility], TUBE WRAPPER, urgent care, hospital, or prison...) When possible be specific @ -Patient was sent in by the primary medical care doctor Did you speak to anyone other than the patient for history (EMS, parent, family, police, friend...)? What history was obtained from this source @ -No Did you review nursing and triage notes (agree or disagree)? Why? @ -I reviewed and agree with nursing and triage notes Were old charts reviewed (outside hosp., previous admission, EMS record, old EKG, old radiological studies, urgent care reports/EKG's, prison records)? Report findings @ -I reviewed prior charts and prior lab work on this patient Differential Diagnosis (chest pain, altered mental status, abdominal pain women, abdominal pain men, vaginal bleeding, weakness, fever, dyspnea, syncope, headache, dizziness, GI bleed, back pain, seizure, CVA, palpatations, mental health, musculoskeletal)? @ -Hypertension, hypertensive urgency, hypertensive emergency as is not an all- inclusive list EKG interpreted by me (3pts min.). @ -As above X-rays interpreted by me (1pt min.). @ -Chest x-ray shows no acute abnormality CT interpreted by me (1pt min.). @ -None done U/S interpreted by me (1pt. min.). @ -None done What testing was considered but not performed or refused? (CT, X-rays, U/S, labs)? Why? @ -None What meds were considered but not given or refused? Why? @ -None Did you discuss the management of the patient with other professionals (professionals i.e. , PA, TUBE WRAPPER, lab, RT, psych nurse, social economist, ring sorter, teacher, postal delivery officer, dependency case manager)? Give summary @ -No Was smoking cessation discussed for >3mins.? @ -No Was critical care preformed (if so, how long)? @ -No Were there social determinants of health that impacted care today? How? (Homelessness, low income, unemployed, alcoholism, drug addiction, transportat ion, low edu. Level, literacy, decrease access to med. care, senior care, rehab)? @ -No Was there de-escalation of care discussed even if they declined (Discuss DNR or withdrawal of care, Hospice)? DNR status @ -No What co-morbidities impacted this encounter? (DM, HTN, Smoking, COPD, CAD, Cancer, CVA, ARF, Chemo, Hep., AIDS, mental health diagnosis, sleep apnea, morbid obesity)? @ -None Was patient admitted / discharged? Hospital course, mention meds given and route, prescriptions, significant lab abnormalities, going to OR and other pertinent info. @ -Patient was given hydralazine and the blood pressure did come down patient states she has an appointment in with cardiology and she will follow-up with them Undiagnosed new problem with uncertain prognosis? @ -No Drug Therapy requiring intensive monitoring for toxicity (Heparin, Nitro, Insulin, Cardizem)? @ -No Were any procedures done? @ -No Diagnosis/symptom? @ -Hypertension Acute, or Chronic, or Acute on Chronic? @ -Acute Uncomplicated (without systemic symptoms) or Complicated (systemic symptoms)? @ -Complicated Side effects of treatment? @ -No Exacerbation, Progression, or Severe Exacerbation? @ -No Poses a threat to life or bodily function? How? (Chest pain, USA, ME, pneumonia, PE, COPD, DKA, ARF, appy, cholecystitis, CVA, Diverticulitis, Homicidal, Suicidal, threat to staff... and all critical care pts) @ -No - Lab Data Result diagrams: 06/24/23 14:26 06/24/23 14:26 Lab Results 06/24/23 06/24/23 06/24/23 Range/Units 14:26 14:26 14:26 WBC 9.2 (3.8-10.6) k/uL RBC 4.60 (3.80-5.40) m/uL Hgb 11.7 (11.4-16.0) gm/dL Hct 35.6 (34.0-46.0) % MCV 77.4 L (80.0-100.0) fL MCH 25.4 (25.0-35.0) pg MCHC 32.9 (31.0-37.0) g/dL RDW 15.5 (11.5-15.5) % Plt Count 239 (150-450) k/uL MPV 7.2 Neutrophils % 77 % Lymphocytes % 17 % Monocytes % 3 % Eosinophils % 2 % Basophils % 1 % Neutrophils # 7.1 (1.3-7.7) k/uL Lymphocytes # 1.5 (1.0-4.8) k/uL Monocytes # 0.3 (0-1.0) k/uL Eosinophils # 0.2 (0-0.7) k/uL Basophils # 0.1 (0-0.2) k/uL Microcytosis Slight PT 10.3 (10.0-12.5) sec INR 0.9 (<1.2) APTT 23.3 (22.0-30.0) sec Sodium (137-145) mmol/L Potassium (3.5-5.1) mmol/L Chloride (98-107) mmol/L Carbon Dioxide (22-30) mmol/L Anion Gap mmol/L BUN (7-17) mg/dL Creatinine (0.52-1.04) mg/dL Est GFR (CKD-EPI)AfAm (>60 ml/min/1.73 sqM) Est GFR (CKD-EPI)NonAf (>60 ml/min/1.73 sqM) Glucose (74-99) mg/dL Plasma Lactic Acid Mitchell 1.4 (0.7-2.0) mmol/L Calcium (8.4-10.2) mg/dL Magnesium (1.6-2.3) mg/dL Total Bilirubin (0.2-1.3) mg/dL AST (14-36) U/L ALT (4-34) U/L Alkaline Phosphatase (38-126) U/L Troponin I (0.000-0.034) ng/mL NT-Pro-B Natriuret Pep pg/mL Total Protein (6.3-8.2) g/dL Albumin (3.5-5.0) g/dL 06/24/23 06/24/23 06/24/23 Range/Units 14:26 14:26 15:34 WBC (3.8-10.6) k/uL RBC (3.80-5.40) m/uL Hgb (11.4-16.0) gm/dL Hct (34.0-46.0) % MCV (80.0-100.0) fL MCH (25.0-35.0) pg MCHC (31.0-37.0) g/dL RDW (11.5-15.5) % Plt Count (150-450) k/uL MPV Neutrophils % % Lymphocytes % % Monocytes % % Eosinophils % % Basophils % % Neutrophils # (1.3-7.7) k/uL Lymphocytes # (1.0-4.8) k/uL Monocytes # (0-1.0) k/uL Eosinophils # (0-0.7) k/uL Basophils # (0-0.2) k/uL Microcytosis PT (10.0-12.5) sec INR (<1.2) APTT (22.0-30.0) sec Sodium 134 L (137-145) mmol/L Potassium 4.4 (3.5-5.1) mmol/L Chloride 105 (98-107) mmol/L Carbon Dioxide 19 L (22-30) mmol/L Anion Gap 10 mmol/L BUN 21 H (7-17) mg/dL Creatinine 0.82 (0.52-1.04) mg/dL Est GFR (CKD-EPI)AfAm 88 (>60 ml/min/1.73 sqM) Est GFR (CKD-EPI)NonAf 76 (>60 ml/min/1.73 sqM) Glucose 145 H (74-99) mg/dL Plasma Lactic Acid Mitchell (0.7-2.0) mmol/L Calcium 9.4 (8.4-10.2) mg/dL Magnesium 1.6 (1.6-2.3) mg/dL Total Bilirubin 0.6 (0.2-1.3) mg/dL AST 27 (14-36) U/L ALT 24 (4-34) U/L Alkaline Phosphatase 101 (38-126) U/L Troponin I <0.012 (0.000-0.034) ng/mL NT-Pro-B Natriuret Pep 746 pg/mL Total Protein 7.1 (6.3-8.2) g/dL Albumin 4.2 (3.5-5.0) g/dL Disposition Clinical Impression: Hypertension Disposition: HOME SELF-CARE Condition: Good Instructions (If sedation given, give patient instructions): Hypertension (ED) Is patient prescribed a controlled substance at d/c from ED?: No Referrals: León Martin MD [Primary Care Provider] - 1-2 days Time of Disposition: 17:41
[2023-06-24] MEDS: LORazepam 2 MG/ML INJ IV STA (14:50)
[2023-06-24] MEDS: hydrALAZINE HCL 20 MG/ML 1 ML VIAL IVP STA (14:53)
[2023-06-24 14:55] LABS: Basophils # (A) 0.1 k/uL (0-0.2); Basophils % (A) 1 %; Eosinophils # (A) 0.2 k/uL (0-0.7); Eosinophils % (A) 2 %; HCT 35.6 % (34.0-46.0); HGB 11.7 gm/dL (11.4-16.0); Lymphocytes # (A) 1.5 k/uL (1.0-4.8); Lymphocytes % (A) 17 %; MCH 25.4 pg (25.0-35.0); MCHC 32.9 g/dL (31.0-37.0); MCV 77.4 fL (80.0-100.0); Mean Platelet Volume 7.2; Microcytosis Slight; Monocytes # (A) 0.3 k/uL (0-1.0); Monocytes % (A) 3 %; Neutrophils # (A) 7.1 k/uL (1.3-7.7); Neutrophils % (A) 77 %; Platelet Count 239 k/uL (150-450); RDW 15.5 % (11.5-15.5); WBC 9.2 k/uL (3.8-10.6)
[2023-06-24 15:07] LABS: INR 0.9 (<1.2); Partial Thromboplastin Time 23.3 sec (22.0-30.0); Prothrombin Time 10.3 sec (10.0-12.5)
--- NOTE | 2023-06-24 15:07 | XR ---
EXAMINATION TYPE: XR chest 2V DATE OF EXAM: 06/24/2023 COMPARISON: 07/25/2022 HISTORY: 62 year-old female shortness of breath, difficulty breathing TECHNIQUE: PA and lateral views FINDINGS: Heart mildly enlarged. Diffuse interstitial density. Hyperinflation. No collette consolidation or pleura l effusion. IMPRESSION: Mild cardiomegaly and COPD. Interstitial density could reflect CHF with pulmonary vascular congestion . Clinically correlate.
[2023-06-24 15:37] LABS: ALT 24 U/L (4-34); AST 27 U/L (14-36); African American GFR (CKD) 88 (>60 ml/min/1.73 sqM); Albumin 4.2 g/dL (3.5-5.0); Alkaline Phosphatase 101 U/L (38-126); Anion Gap 10 mmol/L; Blood Urea Nitrogen 21 mg/dL (7-17); Calcium 9.4 mg/dL (8.4-10.2); Carbon Dioxide 19 mmol/L (22-30); Chloride 105 mmol/L (98-107); Glucose 145 mg/dL (74-99); Magnesium 1.6 mg/dL (1.6-2.3); Non-African American GFR(CKD) 76 (>60 ml/min/1.73 sqM); Potassium 4.4 mmol/L (3.5-5.1); Sodium 134 mmol/L (137-145); Total Bilirubin 0.6 mg/dL (0.2-1.3); Total Protein 7.1 g/dL (6.3-8.2)
[2023-06-24 17:28] VITALS: RESP 20
[2023-06-24 18:30] VITALS: BP 148/74; PULSE 80; TEMP 97.6
== END 2023-06-24 18:10 | disposition home or self-care (01) ==
LOC: EC 13:46
DX: I11.0 Hypertensive heart disease with heart failure (principal); I45.10 Unspecified right bundle-branch block; I50.9 Heart failure, unspecified; J44.89 Other specified chronic obstructive pulmonary disease; I25.10 Atherosclerotic heart disease of native coronary artery without angina pectoris; E11.9 Type 2 diabetes mellitus without complications; K21.9 Gastro-esophageal reflux disease without esophagitis; E78.5 Hyperlipidemia, unspecified; F41.9 Anxiety disorder, unspecified; F32.A Depression, unspecified; I25.2 Old myocardial infarction; M19.90 Unspecified osteoarthritis, unspecified site; E66.9 Obesity, unspecified; Z79.4 Long term (current) use of insulin; Z79.51 Long term (current) use of inhaled steroids; Z79.82 Long term (current) use of aspirin; Z79.02 Long term (current) use of antithrombotics/antiplatelets; Z79.84 Long term (current) use of oral hypoglycemic drugs; Z79.899 Other long term (current) drug therapy; Z88.1 Allergy status to other antibiotic agents; Z88.5 Allergy status to narcotic agent; Z88.7 Allergy status to serum and vaccine; Z88.8 Allergy status to other drugs, medicaments and biological substances; Z91.030 Bee allergy status; Z91.09 Other allergy status, other than to drugs and biological substances; Z68.42 Body mass index [BMI] 45.0-49.9, adult; Z86.16 Personal history of COVID-19; Z86.73 Personal history of transient ischemic attack (TIA), and cerebral infarction without residual deficits; Z90.49 Acquired absence of other specified parts of digestive tract; Z95.5 Presence of coronary angioplasty implant and graft
CPT/HCPCS: 99284 ×2; 96374 ×2; 96375 ×2; 36415; 93005; 83880; 80053; 83605; 83735; 84484; 85025; 85610; 85730; 71046; J2060; J0360

== ENCOUNTER 2023-11-08 11:12 | Emergency (ER) | payer OTHER, MEDICARE ==
[2023-11-08 11:24] VITALS: TEMP 98.2
--- NOTE | 2023-11-08 11:46 | ED ---
General Adult HPI - General Chief complaint: Weakness Stated complaint: SOB,Weakness Time Seen by Provider: 11/08/23 11:20 Source: patient Mode of arrival: ambulatory - History of Present Illness Initial comments: Dictation was produced using [employer] dictation software. please excuse any grammatical, word or spelling errors. Chief Complaint: 62-year-old female with multiple comorbidities presents emergency department for feeling disoriented History of Present Illness: Patient 62-year-old female she has multiple comorbidities. For the last several weeks she has been having symptoms of what she describes as disorientation. Patient states she does not feel like herself states that she feels weird. Denies any numbness tingling paresthesias. Patient states that when she ambulates for long periods of time she feels like she walks crookedly and as if the floor was not level. Patient denies any predilection towards any sort of direction. Denies any pain complaints. She has history of stroke aneurysm. Denies any headache. No fever, chills or night sweats. The ROS documented in this emergency department record has been reviewed and confirmed by me. Those systems with pertinent positive or negative responses have been documented in the HPI. All other systems are other negative and/or noncontributory. - Related Data Home Medications Medication Instructions Recorded Confirmed EPINEPHrine (Auto Inject) [Epipen] 0.3 mg IM ONCE PRN 04/19/20 11/08/23 Insulin Glargine,Hum.rec.anlog 24 unit SQ HS 04/19/20 11/08/23 [Lantus Solostar Pen] Sennosides/Docusate Sodium [Senna 1 tab PO BID 04/19/20 11/08/23 Plus 8.6-50 mg Tablet] dilTIAZem HCL [Cartia Xt] 300 mg PO DAILY 07/14/20 11/08/23 Insulin Aspart [NovoLOG Flexpen] 12 units SQ TID-W/MEALS 07/14/21 11/08/23 Cholecalciferol [Vitamin D3 (25 50 mcg PO DAILY 07/30/21 11/08/23 Mcg = 1000 Iu)] rOPINIRole HCL [Requip] 4 mg PO HS 07/30/21 11/08/23 Albuterol Inhaler [Ventolin Hfa 2 puff INHALATION RT-QID PRN 10/30/21 11/08/23 Inhaler] Ferrous Sulfate [Iron (65 MG 325 mg PO MOWEFR 03/13/22 11/08/23 Elemental)] Aspirin EC [Ecotrin Low Dose] 81 mg PO DAILY 06/24/23 11/08/23 Atorvastatin [Lipitor] 40 mg PO HS 06/24/23 11/08/23 Clopidogrel [Plavix] 75 mg PO DAILY 06/24/23 11/08/23 Oxybutynin Chloride [oxyBUTYnin 10 mg PO HS 06/24/23 11/08/23 chloride ER] Semaglutide [Ozempic] 1 mg SQ MO 06/24/23 11/08/23 metFORMIN HCL ER [Glucophage XR] 1,000 mg PO BID 06/24/23 11/08/23 Fluticasone Propion/Salmeterol 1 puff INHALATION RT-BID 11/08/23 11/08/23 [Wixela 250-50 Inhub] Losartan [Cozaar] 100 mg PO DAILY 11/08/23 11/08/23 Miconazole Nitrate 2% Powder 1 applic TOPICAL DAILY PRN 11/08/23 11/08/23 Pantoprazole [Protonix] 40 mg PO AC-BRKFST 11/08/23 11/08/23 Rimegepant Sulfate [Nurtec Odt] 75 mg PO DAILY PRN 11/08/23 11/08/23 Allergies Allergy/AdvReac Type Severity Reaction Status Date / Time ammonia Allergy Dyspnea & Verified 11/08/23 12:59 Passed Out bee venom protein (honey bee) Allergy Verified 11/08/23 13:43 exenatide [From Byetta] Allergy Unknown Verified 11/08/23 12:59 feathers Allergy Anaphylaxis Verified 11/08/23 12:59 meperidine [From Demerol] Allergy Hives, Verified 11/08/23 12:59 Rash, Hypotension meperidine HCl [From Demerol] Allergy Anaphylaxis Verified 11/08/23 12:59 mint Allergy Anaphylaxis Verified 11/08/23 12:59 mold Allergy Anaphylaxis Verified 11/08/23 12:59 nifedipine [From Procardia] Allergy Unknown Verified 11/08/23 12:59 venom-honey bee Allergy Anaphylaxis Verified 11/08/23 12:59 [bee venom (honey bee)] wool Allergy Anaphylaxis Verified 11/08/23 12:59 amlodipine AdvReac Headache Verified 11/08/23 12:59 atenolol AdvReac Dyspnea, Verified 11/08/23 12:59 Migraine barium sulfate AdvReac rectal Verified 11/08/23 12:59 bleeding cephalexin [From Keflex] AdvReac Dyspnea Verified 11/08/23 12:59 diphenhydramine AdvReac Hypertensio Verified 11/08/23 12:59 n diphtheria,pertussis AdvReac Dyspnea & Verified 11/08/23 12:59 (acellular),te Heart [From Boostrix Tdap] Palpitations & Nausea dulaglutide [From Trulicity] AdvReac Dyspnea Verified 11/08/23 12:59 fexofenadine [From Elena] AdvReac Migraine Verified 11/08/23 12:59 fexofenadine HCl AdvReac Muscle Pain Verified 11/08/23 12:59 [From Elena] fluoxetine AdvReac "Feeling Verified 11/08/23 12:59 Irritable" fluvastatin AdvReac Muscle Pain Verified 11/08/23 12:59 guaifenesin AdvReac Dyspnea Verified 11/08/23 12:59 hydrochlorothiazide AdvReac Tachycardia Verified 11/08/23 12:59 influenza virus vaccine, AdvReac Dyspnea & Verified 11/08/23 12:59 specific Heart Palpitations & Nausea isosorbide [From Imdur] AdvReac Migraine Verified 11/08/23 12:59 lisinopril AdvReac Fatigue, Verified 11/08/23 12:59 Cough modafinil AdvReac Headache Verified 11/08/23 12:59 nitroglycerin AdvReac Dizziness Verified 11/08/23 12:59 ondansetron [From Zofran] AdvReac Nausea Verified 11/08/23 12:59 paroxetine [From Paxil] AdvReac "Depression Verified 11/08/23 12:59 " paroxetine HCl [From Paxil] AdvReac "Depressed" Verified 11/08/23 12:59 pneumococcal vaccine AdvReac Dyspnea & Verified 11/08/23 12:59 Heart Palpitations & Nausea rimegepant [From Nurtec ODT] AdvReac Nausea & Verified 11/08/23 12:59 Vomiting sertraline HCl [From Zoloft] AdvReac Fatigue Verified 11/08/23 12:59 simvastatin [From Zocor] AdvReac Muscle/Joint Verified 11/08/23 12:59 Pain spironolactone AdvReac Nausea & Verified 11/08/23 12:59 Vomiting Ygvithh-ZKB-NyH Reductase AdvReac Muscle/Joint Verified 11/08/23 12:59 Inhibitor Pain [Ltwyxyr-Dqn-Dpa Reductase Inhibitor] sumatriptan AdvReac Palpitation Verified 11/08/23 12:59 s venlafaxine [From Effexor] AdvReac Tachycardia Verified 11/08/23 12:59 zolpidem [From Ambien] AdvReac Dyspnea, Verified 11/08/23 12:59 Migraine zolpidem tartrate AdvReac Dyspnea, Verified 11/08/23 12:59 [From Ambien] Migraine zoster vaccine live AdvReac Dyspnea & Verified 11/08/23 12:59 Heart Palpitations & Nausea hay AdvReac Dyspnea Uncoded 11/08/23 12:59 lysol AdvReac Dyspnea Uncoded 11/08/23 12:59 Review of Systems ROS Statement: Those systems with pertinent positive or pertinent negative responses have been documented in the HPI. ROS Other: All systems not noted in ROS Statement are negative. Past Medical History Past Medical History: Asthma, Coronary Artery Disease (CAD), Heart Failure, COPD, CVA/TIA, Diabetes Mellitus, GERD/Reflux, Hearing Disorder / Deafness, Hyperlipidemia, Hypertension, Myocardial Infarction (MD), Osteoarthritis (OA), Pneumonia, Seizure Disorder, Sleep Apnea/CPAP/BIPAP, Thyroid Disorder Additional Past Medical History / Comment(s): additional hx: right bundle branch block,barretts esophagus, migraines, deanna hearing aids, lung nodules, fatty liver, pulmonary hypertension, heart murmur,obesity, IBS, RLS, arthritis, ADHD, DJD, anemia, lactose intolerance; last seizure 21 years ago, kidney stones x2, covid 07/08; CHF; TIA in 2019; two heart attacks 2011 and 2018 Last Myocardial Infarction Date:: History of Any Multi-Drug Resistant Organisms: MRSA Date of last positivie culture/infection: November 2020 MDRO Source:: Abdomen Past Surgical History: Bowel Resection, Cholecystectomy, Heart Catheterization With Stent, Hysterectomy Additional Past Surgical History / Comment(s): breast biopsy,esophageal surgery - 2002, Colostomy Apr 2020, colostomy reversed october 2020, cardiac stent 04/01/23 Past Anesthesia/Blood Transfusion Reactions: Postoperative Nausea & Vomiting (PONV) Additional Past Anesthesia/Blood Transfusion Reaction / Comment(s): gets nauseous at times; patient has had blood transfusions without no reactions Date of Last Stent Placement:: 08/01/2018 Past Psychological History: Anxiety, Depression Smoking Status: Never smoker Past Alcohol Use History: None Reported Past Drug Use History: None Reported - Past Family History Mother History Unknown: Yes Family Medical History: Congestive Heart Failure (CHF), Myocardial Infarction (MD) Additional Family Medical History / Comment(s): 77 Father History Unknown: Yes Family Medical History: COPD, Myocardial Infarction (MD) Additional Family Medical History / Comment(s): at 56 Sister(s) History Unknown: Yes Family Medical History: Myocardial Infarction (MD) Additional Family Medical History / Comment(s): at 56 Brother(s) Family Medical History: Cancer Additional Family Medical History / Comment(s): colon cancer General Exam - General Exam Comments Initial Comments: PHYSICAL EXAM: General Impression: Alert and oriented x3, not in acute distress HEENT: Normocephalic atraumatic, extra-ocular movements intact, pupils equal and reactive to light bilaterally, mucous membranes moist. Cardiovascular: Heart regular rate and rhythm Chest: Able to complete full sentences, no retractions, no tachypnea Abdomen: abdomen soft, non-tender, non-distended, no organomegaly Musculoskeletal: Pulses present and equal in all extremities, no peripheral edema Motor: no focal deficits noted Neurological: CN II-XII grossly intact, no focal motor or sensory deficits noted Skin: Intact with no visualized rashes Psych: Normal affect and mood Course Vital Signs 11/08/23 11/08/23 11/08/23 11:19 12:00 13:00 Temperature 98.2 F Pulse Rate 75 75 75 Respiratory 18 20 20 Rate Blood Pressure 155/104 148/99 150/86 O2 Sat by Pulse 96 96 96 Oximetry EKG Findings - EKG Comments: EKG Findings:: My EKG interpretation: Ventricular rate 72, sinus rhythm QRS 140, QTc 489, significant artifact, right bundle branch block. No GA prolongation, no QTC prolongation, no ST or T-wave changes noted. EKG compared to August 31, 2023 showing no changes. Overall, this EKG is unremarkable Medical Decision Making - Medical Decision Making Was pt. sent in by a medical professional or institution (, PA, GUEST [employer], urgent care, hospital, or long term...) When possible be specific @ -No Did you speak to anyone other than the patient for history (EMS, parent, family, police, friend...)? What history was obtained from this source @ -No Did you review nursing and triage notes (agree or disagree)? Why? @ -I reviewed and agree with nursing and triage notes Were old charts reviewed (outside hosp., previous admission, EMS record, old EKG, old radiological studies, urgent care reports/EKG's, long term records)? Report findings @ -No old charts were reviewed Differential Diagnosis (chest pain, altered mental status, abdominal pain women, abdominal pain men, vaginal bleeding, musculoskeletal, weakness, fever, dyspnea, syncope, headache, dizziness, GI bleed, back pain, seizure, CVA, palpatations, mental health)? @ -Differential Dizziness: Benign paroxysmal positional Vertigo, Menieres disease, otitis media, acoustic neuroma, vertebrobasilar insufficiency, cerebellar stroke, encephalitis, hypo volemic, arrhythmia, coronary artery syndrome, anemia, this is not meant to be an all-inclusive list EKG interpreted by me (3pts min.). @ -See above X-rays interpreted by me (1pt min.). @ -None done CT interpreted by me (1pt min.). @ -CT brain is nonacute U/S interpreted by me (1pt. min.). @ -None done What testing was considered but not performed or refused? (CT, X-rays, U/S, labs)? Why? @ -None What meds were considered but not given or refused? Why? @ -None Was smoking cessation discussed for >3mins.? @ -No Were there social determinants of health that impacted care today? How? (Keanu elessness, low income, unemployed, alcoholism, drug addiction, transportation, low edu. Level, literacy, decrease access to med. care, halfway, rehab)? @ -No Was there de-escalation of care discussed even if they declined (Discuss DNR or withdrawal of care, Hospice)? DNR status @ -No What co-morbidities impacted this encounter? (DM, HTN, Smoking, COPD, CAD, Cancer, CVA, ARF, Chemo, Hep., AIDS, mental health diagnosis, sleep apnea, morbid obesity)? @ -None Was patient admitted / discharged? Hospital course, mention meds given and route, prescriptions, significant lab abnormalities, going to OR and other pertinent info. @ -62-year-old female with multiple comorbidities presents to the emergency department for vague symptoms of feeling off. Patient does not have any focal findings. Vital signs are stable. Physical examination is benign. Neuroexam is negative. CT of the brain is negative. Labs are unremarkable. Patient well-appearing upon reevaluation 1:45 PM. She is advised to follow with her primary care doctor. Patient is agreeable to plan. Did you discuss the management of the patient with other professionals (professionals i.e. , PA, [employer]ST [employer], lab, RT, psych nurse, social director, chief nuclear medicine technologist, teacher, loan review officer, manager of case)? Give summary @ -No Was critical care preformed (if so, how long)? @ -No Undiagnosed new problem with uncertain prognosis? @ -No Drug Therapy requiring intensive monitoring for toxicity (Heparin, Nitro, Insulin, Cardizem)? @ -No Were any procedures done? @ -No Diagnosis/symptom? Acute, or Chronic, or Acute on Chronic? Uncomplicated (with out systemic symptoms) or Complicated (systemic symptoms)? @ -Altered mental status Side effects of treatment? @ -No Exacerbation, Progression, or Severe Exacerbation? @ -No Poses a threat to life or bodily function? How? (Chest pain, USA, MD, pneumonia, PE, COPD, DKA, ARF, appy, cholecystitis, CVA, Diverticulitis, Homicidal, Suicidal, threat to staff... and all critical care pts) @ -No - Lab Data Result diagrams: 11/08/23 11:52 11/08/23 11:52 Lab Results 11/08/23 11/08/23 Range/Units 11:52 11:52 WBC 7.2 (3.8-10.6) k/uL RBC 5.14 (3.80-5.40) m/uL Hgb 13.0 (11.4-16.0) gm/dL Hct 40.1 (34.0-46.0) % MCV 78.1 L (80.0-100.0) fL MCH 25.3 (25.0-35.0) pg MCHC 32.4 (31.0-37.0) g/dL RDW 15.8 H (11.5-15.5) % Plt Count 214 (150-450) k/uL MPV 7.4 Neutrophils % 72 % Lymphocytes % 21 % Monocytes % 3 % Eosinophils % 2 % Basophils % 1 % Neutrophils # 5.2 (1.3-7.7) k/uL Lymphocytes # 1.5 (1.0-4.8) k/uL Monocytes # 0.2 (0-1.0) k/uL Eosinophils # 0.2 (0-0.7) k/uL Basophils # 0.0 (0-0.2) k/uL Hypochromasia Slight Microcytosis Slight Sodium 132 L (137-145) mmol/L Potassium 4.9 (3.5-5.1) mmol/L Chloride 103 (98-107) mmol/L Carbon Dioxide 17 L (22-30) mmol/L Anion Gap 12 mmol/L BUN 21 H (7-17) mg/dL Creatinine 0.61 (0.52-1.04) mg/dL Est GFR (CKD-EPI)AfAm >90 (>60 ml/min/1.73 sqM) Est GFR (CKD-EPI)NonAf >90 (>60 ml/min/1.73 sqM) Glucose 329 H (74-99) mg/dL Calcium 9.1 (8.4-10.2) mg/dL Total Bilirubin 0.8 (0.2-1.3) mg/dL AST 36 (14-36) U/L ALT 25 (4-34) U/L Alkaline Phosphatase 80 (38-126) U/L Total Protein 6.9 (6.3-8.2) g/dL Albumin 4.2 (3.5-5.0) g/dL Disposition Clinical Impression: Dizziness Disposition: HOME SELF-CARE Condition: Good Instructions (If sedation given, give patient instructions): Lightheadedness (ED) Is patient prescribed a controlled substance at d/c from ED?: No Referrals: León Martin MD [Primary Care Provider] - 1-2 days Time of Disposition: 13:45
[2023-11-08 12:15] LABS: Basophils % (A) 1 %; Eosinophils # (A) 0.2 k/uL (0-0.7); Eosinophils % (A) 2 %; HCT 40.1 % (34.0-46.0); Hypochromasia Slight; Lymphocytes # (A) 1.5 k/uL (1.0-4.8); Lymphocytes % (A) 21 %; MCH 25.3 pg (25.0-35.0); MCHC 32.4 g/dL (31.0-37.0); MCV 78.1 fL (80.0-100.0); Mean Platelet Volume 7.4; Microcytosis Slight; Monocytes # (A) 0.2 k/uL (0-1.0); Monocytes % (A) 3 %; Neutrophils # (A) 5.2 k/uL (1.3-7.7); Neutrophils % (A) 72 %; Platelet Count 214 k/uL (150-450); RBC 5.14 m/uL (3.80-5.40); RDW 15.8 % (11.5-15.5); WBC 7.2 k/uL (3.8-10.6)
[2023-11-08 12:20] LABS: ALT 25 U/L (4-34); African American GFR (CKD) >90 (>60 ml/min/1.73 sqM); Anion Gap 12 mmol/L; Blood Urea Nitrogen 21 mg/dL (7-17); Calcium 9.1 mg/dL (8.4-10.2); Carbon Dioxide 17 mmol/L (22-30); Chloride 103 mmol/L (98-107); Glucose 329 mg/dL (74-99); Non-African American GFR(CKD) >90 (>60 ml/min/1.73 sqM); Sodium 132 mmol/L (137-145); Total Bilirubin 0.8 mg/dL (0.2-1.3)
[2023-11-08 12:32] LABS: AST 36 U/L (14-36); Albumin 4.2 g/dL (3.5-5.0); Alkaline Phosphatase 80 U/L (38-126); Potassium 4.9 mmol/L (3.5-5.1); Total Protein 6.9 g/dL (6.3-8.2)
--- NOTE | 2023-11-08 12:43 | CT ---
EXAMINATION TYPE: CT brain wo con CT DLP: 1101.8 mGycm, Automated exposure control for dose reduction was used. DATE OF EXAM: 11/08/2023 12:27 PM COMPARISON: The prior CT brain 05/11/2023. CLINICAL INDICATION:Female, 62 years old with history of ams, WEAKNESS/MEMORY LOSS TECHNIQUE: Brain: Axial CT images of the brain were obtained with coronal and sagittal reformats created and rev iewed. Contrast used: None. Oral contrast used: None. FINDINGS: Brain: Extra-axial spaces: No abnormal extra-axial fluid collections. Ventricular system: Within normal limits Cerebral parenchyma: No acute intraparenchymal hemorrhage or mass effect. The rodriguez-white junction is well differentiated. Cerebellum: Unremarkable. Mass effect: No evidence of midline shift. Intracranial vasculature: unremarkable Soft tissues: Normal. Calvarium/osseous structures: No depressed skull fracture. Paranasal sinuses and mastoid air cells: Mild scattered paranasal sinus disease. Visualized orbits: Orbital contents are intact. IMPRESSION: No acute intracranial process.
[2023-11-08 13:06] VITALS: RESP 20
[2023-11-08] MEDS: SODIUM CHLORIDE 0.9% 500 ML 500 ML IV STA (13:41)
[2023-11-08 14:02] VITALS: BP 137/97; PULSE 82
== END 2023-11-08 14:03 | disposition home or self-care (01) ==
LOC: EC 11:12
DX: R42 Dizziness and giddiness (principal); Z91.030 Bee allergy status; Z88.5 Allergy status to narcotic agent; Z88.8 Allergy status to other drugs, medicaments and biological substances; Z88.7 Allergy status to serum and vaccine; Z88.1 Allergy status to other antibiotic agents; Z86.16 Personal history of COVID-19
CPT/HCPCS: 36415; 70450; 80053; 85025; 93005; 99285

== ENCOUNTER 2023-12-12 01:01 | Emergency (ER) | payer OTHER, MEDICARE ==
[2023-12-12] MEDS ORDERED: PROCHLORPERAZINE 10 MG TAB ONE (02:35)
[2023-12-12] MEDS ORDERED: ACETAMINOPHEN TAB 500 MG TAB ONE (02:35)
[2023-12-12] MEDS ORDERED: diphenhydrAMINE 25 MG CAP ONE (02:35)
--- NOTE | 2024-01-03 15:50 | CT ---
EXAM: CT Head Without Intravenous Contrast CLINICAL HISTORY: headache TECHNIQUE: Axial computed tomography images of the head/brain without intravenous contrast. CTDI is 49.1 mGy and DLP is 1168.4 mGy-cm. This CT exam was performed using one or more of the following dose reduction techniques: automated exposure control, adjustment of the mA and/or kV according to patient size, and/or use of iterative reconstruction technique. COMPARISON: No relevant prior studies available. FINDINGS: No acute intracranial hemorrhage. No midline shift or mass effect. The territorial rodriguez-white matter differentiation is maintained throughout. Age-related cerebral volume loss. Periventricular and subcortical white matter hypoattenuation, consistent with chronic microangiopathy. The visualized orbits appear grossly unremarkable. The calvarium is intact. The visualized paranasal sinuses and mastoid air cells are grossly clear. IMPRESSION: No acute intracranial hemorrhage, midline shift, or mass effect. Radiologist: Declan Antonio MD Electronically Signed: 12/12/23 04:04 Study ready at 03:34 and initial results transmitted at 04:04 [facility]
== END 2023-12-12 07:31 | disposition home or self-care (01) ==
LOC: EC 01:01 → MERGE 01:01 → EC 07:31
DX: R51.9 Headache, unspecified (principal)
CPT/HCPCS: 70450; 99284

== ENCOUNTER 2024-02-20 01:27 | Emergency (ER) | payer OTHER, MEDICARE ==
[2024-02-20 01:34] VITALS: RESP 18; TEMP 98
--- NOTE | 2024-02-20 02:08 | ED ---
General Adult HPI - General Chief complaint: Headache Stated complaint: Neuro symptoms Time Seen by Provider: 02/20/24 01:31 EST Source: patient Mode of arrival: EMS - History of Present Illness Initial comments: This is a pleasant 63-year-old female past medical history of prior CVA, CAD, diabetes presenting for right sided headache that has since resolved. Was moving furniture this morning when she and experiencing right-sided headache. Started gradually, sharp in nature. Seemed to radiate from forehead to ear and from her right ear towards the jaw. Was associated with sensation of right face and neck swelling. Patient looked in the mirror and she did not notice any swelling. This sensation and headache have since resolved. She denies anytingling, numbness, changes in vision, slurred speech, chest pain, shortness of breath, numbness, weakness, dizziness, lightheadedness, fevers, chills, sore throat, difficulty swallowing, abdominal pain, vomiting, diarrhea. States she has chronic right lower extremity swelling. Currently endorses right ear pain otherwise denies complaints. Is currently on Plavix and aspirin. - Related Data Home Medications Medication Instructions Recorded Confirmed EPINEPHrine (Auto Inject) [Epipen] 0.3 mg IM ONCE PRN 04/19/20 11/08/23 Insulin Glargine,Hum.rec.anlog 24 unit SQ HS 04/19/20 11/08/23 [Lantus Solostar Pen] Sennosides/Docusate Sodium [Senna 1 tab PO BID 04/19/20 11/08/23 Plus 8.6-50 mg Tablet] dilTIAZem HCL [Cartia Xt] 300 mg PO DAILY 07/14/20 11/08/23 Insulin Aspart [NovoLOG Flexpen] 12 units SQ TID-W/MEALS 07/14/21 11/08/23 Cholecalciferol [Vitamin D3 (25 50 mcg PO DAILY 07/30/21 11/08/23 Mcg = 1000 Iu)] rOPINIRole HCL [Requip] 4 mg PO HS 07/30/21 11/08/23 Albuterol Inhaler [Ventolin Hfa 2 puff INHALATION RT-QID PRN 10/30/21 11/08/23 Inhaler] Ferrous Sulfate [Iron (65 MG 325 mg PO MOWEFR 03/13/22 11/08/23 Elemental)] Aspirin EC [Ecotrin Low Dose] 81 mg PO DAILY 06/24/23 11/08/23 Atorvastatin [Lipitor] 40 mg PO HS 06/24/23 11/08/23 Clopidogrel [Plavix] 75 mg PO DAILY 06/24/23 11/08/23 Oxybutynin Chloride [oxyBUTYnin 10 mg PO HS 06/24/23 11/08/23 chloride ER] Semaglutide [Ozempic] 1 mg SQ MO 06/24/23 11/08/23 metFORMIN HCL ER [Glucophage XR] 1,000 mg PO BID 06/24/23 11/08/23 Fluticasone Propion/Salmeterol 1 puff INHALATION RT-BID 11/08/23 11/08/23 [Wixela 250-50 Inhub] Losartan [Cozaar] 100 mg PO DAILY 11/08/23 11/08/23 Miconazole Nitrate 2% Powder 1 applic TOPICAL DAILY PRN 11/08/23 11/08/23 Pantoprazole [Protonix] 40 mg PO AC-BRKFST 11/08/23 11/08/23 Rimegepant Sulfate [Nurtec Odt] 75 mg PO DAILY PRN 11/08/23 11/08/23 Allergies Allergy/AdvReac Type Severity Reaction Status Date / Time ammonia Allergy Dyspnea & Verified 02/20/24 01:34 EST Passed Out bee venom protein (honey bee) Allergy Anaphylaxis Verified 02/20/24 01:34 EST exenatide [From Byetta] Allergy Unknown Verified 02/20/24 01:34 EST feathers Allergy Anaphylaxis Verified 02/20/24 01:34 EST meperidine [From Demerol] Allergy Hives, Verified 02/20/24 01:34 EST Rash, Hypotension meperidine HCl [From Demerol] Allergy Anaphylaxis Verified 02/20/24 01:34 EST mint Allergy Anaphylaxis Verified 02/20/24 01:34 EST mold Allergy Anaphylaxis Verified 02/20/24 01:34 EST nifedipine [From Procardia] Allergy Unknown Verified 02/20/24 01:34 EST venom-honey bee Allergy Anaphylaxis Verified 02/20/24 01:34 EST [bee venom (honey bee)] wool Allergy Anaphylaxis Verified 02/20/24 01:34 EST amlodipine AdvReac Headache Verified 02/20/24 01:34 EST atenolol AdvReac Dyspnea, Verified 02/20/24 01:34 EST Migraine barium sulfate AdvReac rectal Verified 02/20/24 01:34 EST bleeding cephalexin [From Keflex] AdvReac Dyspnea Verified 02/20/24 01:34 EST diphenhydramine AdvReac Hypertensio Verified 02/20/24 01:34 EST n diphtheria,pertussis AdvReac Dyspnea & Verified 02/20/24 01:34 EST (acellular),te Heart [From Boostrix Tdap] Palpitations & Nausea dulaglutide [From Trulicity] AdvReac Dyspnea Verified 02/20/24 01:34 EST fexofenadine [From Elena] AdvReac Migraine Verified 02/20/24 01:34 EST fexofenadine HCl AdvReac Muscle Pain Verified 02/20/24 01:34 EST [From Elena] fluoxetine AdvReac "Feeling Verified 02/20/24 01:34 EST Irritable" fluvastatin AdvReac Muscle Pain Verified 02/20/24 01:34 EST guaifenesin AdvReac Dyspnea Verified 02/20/24 01:34 EST hydrochlorothiazide AdvReac Tachycardia Verified 02/20/24 01:34 EST influenza virus vaccine, AdvReac Dyspnea & Verified 02/20/24 01:34 EST specific Heart Palpitations & Nausea isosorbide [From Imdur] AdvReac Migraine Verified 02/20/24 01:34 EST lisinopril AdvReac Fatigue, Verified 02/20/24 01:34 EST Cough modafinil AdvReac Headache Verified 02/20/24 01:34 EST nitroglycerin AdvReac Dizziness Verified 02/20/24 01:34 EST ondansetron [From Zofran] AdvReac Nausea Verified 02/20/24 01:34 EST paroxetine [From Paxil] AdvReac "Depression Verified 02/20/24 01:34 EST " paroxetine HCl [From Paxil] AdvReac "Depressed" Verified 02/20/24 01:34 EST pneumococcal vaccine AdvReac Dyspnea & Verified 02/20/24 01:34 EST Heart Palpitations & Nausea rimegepant [From Nurtec ODT] AdvReac Nausea & Verified 02/20/24 01:34 EST Vomiting sertraline HCl [From Zoloft] AdvReac Fatigue Verified 02/20/24 01:34 EST simvastatin [From Zocor] AdvReac Muscle/Joint Verified 02/20/24 01:34 EST Pain spironolactone AdvReac Nausea & Verified 02/20/24 01:34 EST Vomiting [id number] Reductase AdvReac Muscle/Joint Verified 02/20/24 01:34 EST Inhibitor Pain [Wcysidb-Wtu-Xmo Reductase Inhibitor] sumatriptan AdvReac Palpitation Verified 02/20/24 01:34 EST s venlafaxine [From Effexor] AdvReac Tachycardia Verified 02/20/24 01:34 EST zolpidem [From Ambien] AdvReac Dyspnea, Verified 02/20/24 01:34 EST Migraine zolpidem tartrate AdvReac Dyspnea, Verified 02/20/24 01:34 EST [From Ambien] Migraine zoster vaccine live AdvReac Dyspnea & Verified 02/20/24 01:34 EST Heart Palpitations & Nausea hay AdvReac Dyspnea Uncoded 02/20/24 01:34 EST lysol AdvReac Dyspnea Uncoded 02/20/24 01:34 EST Review of Systems ROS Statement: Those systems with pertinent positive or pertinent negative responses have been documented in the HPI. ROS Other: All systems not noted in ROS Statement are negative. Past Medical History Past Medical History: Asthma, Coronary Artery Disease (CAD), Heart Failure, COPD, CVA/TIA, Diabetes Mellitus, GERD/Reflux, Hearing Disorder / Deafness, Hyperlipidemia, Hypertension, Myocardial Infarction ([place]), Osteoarthritis (OA), Pneumonia, Seizure Disorder, Sleep Apnea/CPAP/BIPAP, Thyroid Disorder Additional Past Medical History / Comment(s): additional hx: right bundle branch block,barretts esophagus, migraines, deanna hearing aids, lung nodules, fatty liver, pulmonary hypertension, heart murmur,obesity, IBS, RLS, arthritis, ADHD, DJD, anemia, lactose intolerance; last seizure 21 years ago, kidney stones x2, covid 07/08; CHF; TIA in 2019; two heart attacks 2011 and 2018 Last Myocardial Infarction Date:: History of Any Multi-Drug Resistant Organisms: MRSA Date of last positivie culture/infection: November 2020 MDRO Source:: Abdomen Past Surgical History: Bowel Resection, Cholecystectomy, Heart Catheterization With Stent, Hysterectomy Additional Past Surgical History / Comment(s): breast biopsy,esophageal surgery - 2002, Colostomy Apr 2020, colostomy reversed october 2020, cardiac stent 04/01/23 Past Anesthesia/Blood Transfusion Reactions: Postoperative Nausea & Vomiting (PONV) Additional Past Anesthesia/Blood Transfusion Reaction / Comment(s): gets nauseous at times; patient has had blood transfusions without no reactions Date of Last Stent Placement:: 08/01/2018 Past Psychological History: Anxiety, Depression Smoking Status: Never smoker Past Alcohol Use History: None Reported Past Drug Use History: None Reported - Past Family History Mother History Unknown: Yes Family Medical History: Congestive Heart Failure (CHF), Myocardial Infarction ([place]) Additional Family Medical History / Comment(s): 77 Father History Unknown: Yes Family Medical History: COPD, Myocardial Infarction ([place]) Additional Family Medical History / Comment(s): at 56 Sister(s) History Unknown: Yes Family Medical History: Myocardial Infarction ([place]) Additional Family Medical History / Comment(s): at 56 Brother(s) Family Medical History: Cancer Additional Family Medical History / Comment(s): colon cancer General Exam - General Exam Comments Initial Comments: PE: CONSTITUTIONAL: No apparent distress, well appearing SKIN: Warm, dry, no jaundice, hives or petechiae EYES: Pupils are equally round, extraocular movements intact without nystagmus, clear conjunctiva, non-icteric sclera HENT: Normocephalic, atraumatic, moist mucus membranes, oropharynx clear without exudates, poor dentition, no dental abscess, no thyromegaly, no carotid bruits, panic membranes are pearly rodriguez bilaterally, no prominence of temporal artery, no point tenderness to temporal artery palpation NECK: , Full range of motion, normal appearance PULMONARY: Clear to auscultation without wheezes, rhonchi, or rales, normal excursion, no accessory muscle use and no stridor CARDIOVASCULAR: Regular rate, rhythm, normal S1 and S2. No appreciated murmurs, rubs or gallops. Strong radial and dorsalis pedis pulses with intact distal perfusion. 1+ right lower extremity edema, patient states is chronic GASTROINTESTINAL: Soft, active bowel sounds throughout, non-tender, non- distended, no palpable masses, no rebound or guarding. No hepatosplenomegaly MUSCULOSKELETAL: Extremities have no gross deformity, no edema, redness, or swelling with exception of edema noted above NEUROLOGIC: [_a/o x 3, GCS 15, normal mentation and speech. Moves all extremities x 4 without motor or sensory deficit Cranial nerves: II (visual eaton without defects), III, IV and (extraocular movements are intact, pupils are equal with normal reaction to light), V (intact facial sensation and jaw opening), VII (no facial droop), IX and X (normal palate movement, midline uvula, normal voice), XI (symmetrical shoulder shrug and lateral head rotation against resistance), XII (midline tongue protrusion). Motor strength is 5/5 in all extremities. No abnormal movements. Normal muscle tone. Sensation to light touch is intact bilaterally. No cerebellar signs (to nose testing normal) PSYCHIATRIC:_normal mood and affect, thought process is clear and linear Course Vital Signs 02/20/24 02/20/24 02/20/24 01:28 EST 02:00 03:00 Temperature 98.0 F Pulse Rate 78 77 74 Respiratory 18 18 18 Rate Blood Pressure 144/112 159/86 146/79 O2 Sat by Pulse 95 95 95 Oximetry EKG Findings - EKG Comments: EKG Findings:: Sinus rhythm, right bundle branch block, rate 78 bpm, HI interval 193 ms, QRS duration 142 ms, QT/QTc 417/450 ms, left axis deviation, compared to EKG performed on 11/08/2023, no significant changes from prior, no new ST elevations or depressions Medical Decision Making - Medical Decision Making Was pt. sent in by a medical professional or institution (, PATRICIA, ABORIGINAL LIAISON OFFICER, urgent care, hospital, or [facility]...) When possible be specific @ -[No] Did you speak to anyone other than the patient for history (EMS, parent, family, police, friend...)? What history was obtained from this source @ -[No] Did you review nursing and triage notes (agree or disagree)? Why? @ -[I reviewed nursing and triage notes]-I disagree with comments regarding tingling, patient denied numbness and tingling to me Were old charts reviewed (outside hosp., previous admission, EMS record, old EKG, old radiological studies, urgent care reports/EKG's, [facility] records)? Report findings @ -Medical records reviewed Differential Diagnosis (chest pain, altered mental status, abdominal pain women, abdominal pain men, vaginal bleeding, weakness, fever, dyspnea, syncope, headache, dizziness, GI bleed, back pain, seizure, CVA, palpatations, mental health, musculoskeletal)? @ -Differential Headache: Migraine, tension, cluster, carbon monoxide, central venous thrombosis, pension karma temporal arteritis, acute closure glaucoma, intercranial hemorrhage, mastoiditis, sinusitis, head injury, this is not meant to be an all-inclusive list. EKG interpreted by me (3pts min.). @ -[As above] X-rays interpreted by me (1pt min.). @ -Cardiomegaly, no pneumothorax or pleural effusions CT interpreted by me (1pt min.). @No evidence of hemorrhage or mass effect on CT brain U/S interpreted by me (1pt. min.). @ -[None done] What testing was considered but not performed or refused? (CT, X-rays, U/S, labs)? Why? @ -[None] What meds were considered but not given or refused? Why? @I did considering administering IV fluids and insulin for hyperglycemia however patient preferred to take her home insulin and treat at home Did you discuss the management of the patient with other professionals (professionals i.e. , PA, ABORIGINAL LIAISON OFFICER, lab, RT, psych nurse, social insurance analyst, sweeper brush maker machine, teacher, veterans service officer, home health care case manager)? Give summary @ -[No] Was smoking cessation discussed for >3mins.? @ -[No] Was critical care preformed (if so, how long)? @ -[No] Were there social determinants of health that impacted care today? How? (Homelessness, low income, unemployed, alcoholism, drug addiction, transportation, low edu. Level, literacy, decrease access to med. care, halfway, rehab)? @ -[No] Was there de-escalation of care discussed even if they declined (Discuss DNR or withdrawal of care, Hospice)? @ -[No] What co-morbidities impacted this encounter? (DM, HTN, Smoking, COPD, CAD, Cancer, CVA, ARF, Chemo, Hep., AIDS, mental health diagnosis, sleep apnea, morbid obesity)? @ -Diabetes, prior CVA, CAD Was patient admitted / discharged? Hospital course, mention meds given and route, prescriptions, significant lab abnormalities, going to OR and other pertinent info. @Discharged- This is a pleasant 63-year-old female with past medical history diabetes, prior CVA, CAD presenting for right sided headache that began at 2 AM this evening and has since resolved. On my assessment patient is well-appearing and in no acute distress. No focal neurologic deficits, no temporal artery tenderness to palpation. 1+ edema of the distal right lower extremity patient states is chronic. Given patient significant medical history will plan for CT, CTA, though I have a very low suspicion for acute intracranial process given no symptoms, resolution of symptoms and reassuring physical exam. Additionally will obtain chest x-ray, troponin, EKG comprehensive labs. Patient comfortable plan. Undiagnosed new problem with uncertain prognosis? @ -[No] Drug Therapy requiring intensive monitoring for toxicity (Heparin, Nitro, Insulin, Cardizem)? @ -[No] Were any procedures done? @ -[No] Diagnosis/symptom? @ -[default] Acute, or Chronic, or Acute on Chronic? @ -[default] Uncomplicated (without systemic symptoms) or Complicated (systemic symptoms)? @ -[default] Side effects of treatment? @ -[No] Exacerbation, Progression, or Severe Exacerbation? @ -[No] Poses a threat to life or bodily function? How? (Chest pain, [place], [place], pneumonia, PE, COPD, DKA, ARF, appy, cholecystitis, CVA, Diverticulitis, Homicidal, Suicidal, threat to staff... and all critical care pts) @ -[No] - Lab Data Result diagrams: 02/20/24 01:38 EST 02/20/24 01:38 EST Lab Results 02/20/24 02/20/24 02/20/24 Range/Units 01:38 EST 01:38 EST 01:38 EST WBC 8.5 (3.8-10.6) k/uL RBC 5.46 H (3.80-5.40) m/uL Hgb 13.6 (11.4-16.0) gm/dL Hct 42.9 (34.0-46.0) % MCV 78.6 L (80.0-100.0) fL MCH 24.8 L (25.0-35.0) pg MCHC 31.6 (31.0-37.0) g/dL RDW 15.8 H (11.5-15.5) % Plt Count 244 (150-450) k/uL MPV 6.9 Neutrophils % 68 % Lymphocytes % 25 % Monocytes % 3 % Eosinophils % 2 % Basophils % 1 % Neutrophils # 5.8 (1.3-7.7) k/uL Lymphocytes # 2.1 (1.0-4.8) k/uL Monocytes # 0.3 (0-1.0) k/uL Eosinophils # 0.2 (0-0.7) k/uL Basophils # 0.1 (0-0.2) k/uL Hypochromasia Slight Microcytosis Slight PT 9.9 L (10.0-12.5) sec INR 0.9 (<1.2) APTT 23.2 (22.0-30.0) sec Sodium 129 L (137-145) mmol/L Potassium 4.1 (3.5-5.1) mmol/L Chloride 100 (98-107) mmol/L Carbon Dioxide 17 L (22-30) mmol/L Anion Gap 12 mmol/L BUN 22 H (7-17) mg/dL Creatinine 0.88 (0.52-1.04) mg/dL Est GFR (CKD-EPI)AfAm 80 (>60 ml/min/1.73 sqM) Est GFR (CKD-EPI)NonAf 70 (>60 ml/min/1.73 sqM) Glucose 481 H (74-99) mg/dL Calcium 9.2 (8.4-10.2) mg/dL Total Bilirubin 0.5 (0.2-1.3) mg/dL AST 26 (14-36) U/L ALT 28 (4-34) U/L Alkaline Phosphatase 131 H (38-126) U/L Troponin I (0.000-0.034) ng/mL Total Protein 7.1 (6.3-8.2) g/dL Albumin 4.3 (3.5-5.0) g/dL 02/20/24 Range/Units 01:38 EST WBC (3.8-10.6) k/uL RBC (3.80-5.40) m/uL Hgb (11.4-16.0) gm/dL Hct (34.0-46.0) % MCV (80.0-100.0) fL MCH (25.0-35.0) pg MCHC (31.0-37.0) g/dL RDW (11.5-15.5) % Plt Count (150-450) k/uL MPV Neutrophils % % Lymphocytes % % Monocytes % % Eosinophils % % Basophils % % Neutrophils # (1.3-7.7) k/uL Lymphocytes # (1.0-4.8) k/uL Monocytes # (0-1.0) k/uL Eosinophils # (0-0.7) k/uL Basophils # (0-0.2) k/uL Hypochromasia Microcytosis PT (10.0-12.5) sec INR (<1.2) APTT (22.0-30.0) sec Sodium (137-145) mmol/L Potassium (3.5-5.1) mmol/L Chloride (98-107) mmol/L Carbon Dioxide (22-30) mmol/L Anion Gap mmol/L BUN (7-17) mg/dL Creatinine (0.52-1.04) mg/dL Est GFR (CKD-EPI)AfAm (>60 ml/min/1.73 sqM) Est GFR (CKD-EPI)NonAf (>60 ml/min/1.73 sqM) Glucose (74-99) mg/dL Calcium (8.4-10.2) mg/dL Total Bilirubin (0.2-1.3) mg/dL AST (14-36) U/L ALT (4-34) U/L Alkaline Phosphatase (38-126) U/L Troponin I <0.012 (0.000-0.034) ng/mL Total Protein (6.3-8.2) g/dL Albumin (3.5-5.0) g/dL Disposition Clinical Impression: Trigeminal neuralgia, Hyperglycemia Disposition: HOME SELF-CARE Condition: Good Instructions (If sedation given, give patient instructions): Trigeminal Neuralgia (ED) Additional Instructions: Every disease is a spectrum and a small chance still exists that a serious condition could develop, for this reason, please monitor yourself closely for new, changing or worsening symptoms, return of symptoms, swelling along side of face or neck, changes in vision, slurred speech, numbness, weakness, confusion, severe nauseas and vomiting, neck stiffness, fever, inability to tolerate/keep down fluids or your medications, inability to follow up with outpatient providers as instructed and should you experience these symptoms or should you have any further concerns for your wellbeing please return to the ED or call 911 immediately. PLEASE call your primary care physician as soon as possible to arrange / discuss plan for followup appointment. Appointment in the next 1-3 days is strongly encouraged if possible. PLEASE let us know here before you leave if there is anything further we can do to be of any assistance. Take care and feel Better! Is patient prescribed a controlled substance at d/c from ED?: No Referrals: León Martin MD [Primary Care Provider] - 1-2 days
[2024-02-20 02:09] LABS: Basophils # (A) 0.1 k/uL (0-0.2); Basophils % (A) 1 %; Eosinophils # (A) 0.2 k/uL (0-0.7); Eosinophils % (A) 2 %; HCT 42.9 % (34.0-46.0); HGB 13.6 gm/dL (11.4-16.0); Hypochromasia Slight; Lymphocytes # (A) 2.1 k/uL (1.0-4.8); Lymphocytes % (A) 25 %; MCH 24.8 pg (25.0-35.0); MCHC 31.6 g/dL (31.0-37.0); MCV 78.6 fL (80.0-100.0); Mean Platelet Volume 6.9; Microcytosis Slight; Monocytes # (A) 0.3 k/uL (0-1.0); Monocytes % (A) 3 %; Neutrophils # (A) 5.8 k/uL (1.3-7.7); Neutrophils % (A) 68 %; Platelet Count 244 k/uL (150-450); RBC 5.46 m/uL (3.80-5.40); RDW 15.8 % (11.5-15.5); WBC 8.5 k/uL (3.8-10.6)
[2024-02-20 02:13] LABS: ALT 28 U/L (4-34); AST 26 U/L (14-36); African American GFR (CKD) 80 (>60 ml/min/1.73 sqM); Albumin 4.3 g/dL (3.5-5.0); Alkaline Phosphatase 131 U/L (38-126); Anion Gap 12 mmol/L; Blood Urea Nitrogen 22 mg/dL (7-17); Calcium 9.2 mg/dL (8.4-10.2); Carbon Dioxide 17 mmol/L (22-30); Chloride 100 mmol/L (98-107); Glucose 481 mg/dL (74-99); Non-African American GFR(CKD) 70 (>60 ml/min/1.73 sqM); Potassium 4.1 mmol/L (3.5-5.1); Sodium 129 mmol/L (137-145); Total Bilirubin 0.5 mg/dL (0.2-1.3); Total Protein 7.1 g/dL (6.3-8.2)
[2024-02-20 02:17] LABS: INR 0.9 (<1.2); Partial Thromboplastin Time 23.2 sec (22.0-30.0); Prothrombin Time 9.9 sec (10.0-12.5)
--- NOTE | 2024-02-20 02:50 | XR ---
EXAMINATION TYPE: XR chest 2V DATE OF EXAM: 02/20/2024 COMPARISON: Prior chest x-ray September 01, 2023 HISTORY: TIA?. Numbness and tingling. Headache. TECHNIQUE: Frontal and lateral views of the chest are obtained. FINDINGS: Suspect underlying emphysematous change on lateral view. There is no suspicious new focal a ir space opacity, pleural effusion, or pneumothorax seen. Cardiomegaly is redemonstrated. Overlying bra strap on current study. Metallic anchors right humeral head are redemonstrated. IMPRESSION: Chronic emphysematous change and cardiomegaly without acute pulmonary process. [facility], , 02/20/2024 2:48 AM
--- NOTE | 2024-02-20 02:52 | CT ---
EXAMINATION TYPE: CT brain wo con DATE OF EXAM: 02/20/2024 HISTORY: Patient states she is coming to facility due to getting a headache while moving furniture. Patient states she felt numbness and tingling on the right side of her head. Patient states she took all of her night time meds later than what she normally does. Automated Exposure Control for Dose Reduction was Utilized. TECHNIQUE: CT scan of the head is performed without contrast. COMPARISON: CT December 12, 2023 FINDINGS: There is no acute intracranial hemorrhage or midline shift identified. There is mild diff use ventricular and sulcal prominence redemonstrated. There is mild low-attenuation in the periventr icular white matter redemonstrated. The globes are intact and the visualized sinuses are clear. IMPRESSION: No acute intracranial hemorrhage or midline shift. No significant change from most recen t prior CT. If there is clinical concern for acute stroke further investigation with MRI study may BE warranted. [facility], , 02/20/2024 2:49 AM
--- NOTE | 2024-02-20 02:56 | CT ---
EXAMINATION TYPE: CT angio head neck DATE OF EXAM: 02/20/2024 HISTORY: Patient states she is coming to facility due to getting a headache while moving furniture. Patient states she felt numbness and tingling on the right side of her head. Patient states she took all of her night time meds later than what she normally does. COMPARISON: NONE CT DLP: 2183.2 mGycm. Automated Exposure Control for Dose Reduction was Utilized. TECHNIQUE: CTA scan of the head and neck is performed without and with IV Contrast, patient injected with 65 ml mL of Isovue 370, axial images are obtained, coronal and sagittal reformatted images are reviewed. 3D reconstructed images are created on an independent workstation and reviewed. FINDINGS: Carotid/Vascular Structures: Markedly suboptimal due to contrast being in the venous system and not a rterial system near the arch. There is some contrast opacification of the carotid bulbs with mild per ipheral calcified plaque in the left. There is mild calcified plaque along the internal carotid arter ies bilaterally. Mild to moderate peripheral calcified plaque in the distal internal carotid arteries bilaterally. Suboptimal evaluation of the posterior circulation and vertebral arteries. Other: Moderate multilevel disc space narrowing and spurring C4 to C5-C6 and C7 levels. IMPRESSION: Suboptimal essentially nondiagnostic study. Advise repeat CT in 12 to 24 hours after hydr ation. NASCET criteria was used in interpretation of this exam? [facility], , 02/20/2024 2:53 AM
[2024-02-20 03:05] VITALS: PULSE 74
[2024-02-20] MEDS: SODIUM CHLORIDE 0.9% 1,000 ML IV ONE (03:49)
[2024-02-20 03:57] VITALS: BP 130/73
== END 2024-02-20 03:57 | disposition home or self-care (01) ==
LOC: EC 01:27
DX: E11.65 Type 2 diabetes mellitus with hyperglycemia (principal); G50.0 Trigeminal neuralgia; Z91.030 Bee allergy status; Z88.1 Allergy status to other antibiotic agents; Z88.5 Allergy status to narcotic agent; Z88.7 Allergy status to serum and vaccine; Z88.8 Allergy status to other drugs, medicaments and biological substances
CPT/HCPCS: 36415; 93005; 80053; 84484; 85025; 85610; 85730; 71046; 70496; 70450; 70498; 99284; Q9967

== ENCOUNTER 2024-03-26 14:05 | Observation (INO) | payer MEDICARE, OTHER ==
--- NOTE | 2024-03-26 14:40 | ED ---
SOB HPI - General Chief Complaint: Shortness of Breath Stated Complaint: MARTHA Time Seen by Provider: 03/26/24 14:37 Source: patient, RN notes reviewed, old records reviewed Mode of arrival: ambulatory Limitations: no limitations - History of Present Illness Initial Comments: Patient is 63-year-old female presenting to the ER with a chief complaint of abigail rtness of breath. Patient reports she is scheduled for a cardiac catheterization with Dr. Harkins on 03/31/24. She states for the past 2 to 3 days she has had an increase in shortness of breath. She reports she is unable to walk short distances such as 10 to 20 feet or do dishes without fe eling short of breath and extremely fatigued and weak. Patient reports she does wear oxygen at home during nighttime and when at rest. She typically wears 2 L when needed. Patient is not on any current diuretic. Patient denies any current chest discomfort, dizziness, lightheadedness, nausea, vomiting, abdominal pain, constipation/diarrhea, urinary complaints or fevers. - Related Data Home Medications Medication Instructions Recorded Confirmed EPINEPHrine (Auto Inject) [Epipen] 0.3 mg IM ONCE PRN 04/19/20 11/08/23 Insulin Glargine,Hum.rec.anlog 24 unit SQ HS 04/19/20 11/08/23 [Lantus Solostar Pen] Sennosides/Docusate Sodium [Senna 1 tab PO BID 04/19/20 11/08/23 Plus 8.6-50 mg Tablet] dilTIAZem HCL [Cartia Xt] 300 mg PO DAILY 07/14/20 11/08/23 Insulin Aspart [NovoLOG Flexpen] 12 units SQ TID-W/MEALS 07/14/21 11/08/23 Cholecalciferol [Vitamin D3 (25 50 mcg PO DAILY 07/30/21 11/08/23 Mcg = 1000 Iu)] rOPINIRole HCL [Requip] 4 mg PO HS 07/30/21 11/08/23 Albuterol Inhaler [Ventolin Hfa 2 puff INHALATION RT-QID PRN 10/30/21 11/08/23 Inhaler] Ferrous Sulfate [Iron (65 MG 325 mg PO MOWEFR 03/13/22 11/08/23 Elemental)] Aspirin EC [Ecotrin Low Dose] 81 mg PO DAILY 06/24/23 11/08/23 Atorvastatin [Lipitor] 40 mg PO HS 06/24/23 11/08/23 Clopidogrel [Plavix] 75 mg PO DAILY 06/24/23 11/08/23 Oxybutynin Chloride [oxyBUTYnin 10 mg PO HS 06/24/23 11/08/23 chloride ER] Semaglutide [Ozempic] 1 mg SQ MO 06/24/23 11/08/23 metFORMIN HCL ER [Glucophage XR] 1,000 mg PO BID 06/24/23 11/08/23 Fluticasone Propion/Salmeterol 1 puff INHALATION RT-BID 11/08/23 11/08/23 [Wixela 250-50 Inhub] Losartan [Cozaar] 100 mg PO DAILY 11/08/23 11/08/23 Miconazole Nitrate 2% Powder 1 applic TOPICAL DAILY PRN 11/08/23 11/08/23 Pantoprazole [Protonix] 40 mg PO AC-BRKFST 11/08/23 11/08/23 Rimegepant Sulfate [Nurtec Odt] 75 mg PO DAILY PRN 11/08/23 11/08/23 Allergies Allergy/AdvReac Type Severity Reaction Status Date / Time ammonia Allergy Dyspnea & Verified 03/26/24 14:09 Passed Out bee venom protein (honey bee) Allergy Anaphylaxis Verified 03/26/24 14:09 exenatide [From Byetta] Allergy Unknown Verified 03/26/24 14:09 feathers Allergy Anaphylaxis Verified 03/26/24 14:09 meperidine [From Demerol] Allergy Hives, Verified 03/26/24 14:09 Rash, Hypotension meperidine HCl [From Demerol] Allergy Anaphylaxis Verified 03/26/24 14:09 mint Allergy Anaphylaxis Verified 03/26/24 14:09 mold Allergy Anaphylaxis Verified 03/26/24 14:09 nifedipine [From Procardia] Allergy Unknown Verified 03/26/24 14:09 venom-honey bee Allergy Anaphylaxis Verified 03/26/24 14:09 [bee venom (honey bee)] wool Allergy Anaphylaxis Verified 03/26/24 14:09 amlodipine AdvReac Headache Verified 03/26/24 14:09 atenolol AdvReac Dyspnea, Verified 03/26/24 14:09 Migraine barium sulfate AdvReac rectal Verified 03/26/24 14:09 bleeding cephalexin [From Keflex] AdvReac Dyspnea Verified 03/26/24 14:09 diphenhydramine AdvReac Hypertensio Verified 03/26/24 14:09 n diphtheria,pertussis AdvReac Dyspnea & Verified 03/26/24 14:09 (acellular),te Heart [From Boostrix Tdap] Palpitations & Nausea dulaglutide [From Trulicity] AdvReac Dyspnea Verified 03/26/24 14:09 fexofenadine [From Elena] AdvReac Migraine Verified 03/26/24 14:09 fexofenadine HCl AdvReac Muscle Pain Verified 03/26/24 14:09 [From Elena] fluoxetine AdvReac "Feeling Verified 03/26/24 14:09 Irritable" fluvastatin AdvReac Muscle Pain Verified 03/26/24 14:09 guaifenesin AdvReac Dyspnea Verified 03/26/24 14:09 hydrochlorothiazide AdvReac Tachycardia Verified 03/26/24 14:09 influenza virus vaccine, AdvReac Dyspnea & Verified 03/26/24 14:09 specific Heart Palpitations & Nausea isosorbide [From Imdur] AdvReac Migraine Verified 03/26/24 14:09 lisinopril AdvReac Fatigue, Verified 03/26/24 14:09 Cough modafinil AdvReac Headache Verified 03/26/24 14:09 nitroglycerin AdvReac Dizziness Verified 03/26/24 14:09 ondansetron [From Zofran] AdvReac Nausea Verified 03/26/24 14:09 paroxetine [From Paxil] AdvReac "Depression Verified 03/26/24 14:09 " paroxetine HCl [From Paxil] AdvReac "Depressed" Verified 03/26/24 14:09 pneumococcal vaccine AdvReac Dyspnea & Verified 03/26/24 14:09 Heart Palpitations & Nausea rimegepant [From Nurtec ODT] AdvReac Nausea & Verified 03/26/24 14:09 Vomiting sertraline HCl [From Zoloft] AdvReac Fatigue Verified 03/26/24 14:09 simvastatin [From Zocor] AdvReac Muscle/Joint Verified 03/26/24 14:09 Pain spironolactone AdvReac Nausea & Verified 03/26/24 14:09 Vomiting Kxdccyz-IIP-IhC Reductase AdvReac Muscle/Joint Verified 03/26/24 14:09 Inhibitor Pain [Etzrnpo-Wfe-Xqg Reductase Inhibitor] sumatriptan AdvReac Palpitation Verified 03/26/24 14:09 s venlafaxine [From Effexor] AdvReac Tachycardia Verified 03/26/24 14:09 zolpidem [From Ambien] AdvReac Dyspnea, Verified 03/26/24 14:09 Migraine zolpidem tartrate AdvReac Dyspnea, Verified 03/26/24 14:09 [From Ambien] Migraine zoster vaccine live AdvReac Dyspnea & Verified 03/26/24 14:09 Heart Palpitations & Nausea hay AdvReac Dyspnea Uncoded 03/26/24 14:09 lysol AdvReac Dyspnea Uncoded 03/26/24 14:09 Review of Systems ROS Statement: Those systems with pertinent positive or pertinent negative responses have been documented in the HPI. ROS Other: All systems not noted in ROS Statement are negative. Past Medical History Past Medical History: Asthma, Coronary Artery Disease (CAD), Heart Failure, COPD, CVA/TIA, Diabetes Mellitus, GERD/Reflux, Hearing Disorder / Deafness, Hyperlipidemia, Hypertension, Myocardial Infarction (OR), Osteoarthritis (OA), Pneumonia, Seizure Disorder, Sleep Apnea/CPAP/BIPAP, Thyroid Disorder Additional Past Medical History / Comment(s): additional hx: right bundle branch block,barretts esophagus, migraines, deanna hearing aids, lung nodules, fatty liver, pulmonary hypertension, heart murmur,obesity, IBS, RLS, arthritis, ADHD, DJD, anemia, lactose intolerance; last seizure 21 years ago, kidney stones x2, covid 07/08; CHF; TIA in 2019; two heart attacks 2011 and 2018 Last Myocardial Infarction Date:: History of Any Multi-Drug Resistant Organisms: MRSA Date of last positivie culture/infection: November 2020 MDRO Source:: Abdomen Past Surgical History: Bowel Resection, Cholecystectomy, Heart Catheterization With Stent, Hysterectomy Additional Past Surgical History / Comment(s): breast biopsy,esophageal surgery - 2002, Colostomy Apr 2020, colostomy reversed october 2020, cardiac stent 04/01/23 Past Anesthesia/Blood Transfusion Reactions: Postoperative Nausea & Vomiting (PONV) Additional Past Anesthesia/Blood Transfusion Reaction / Comment(s): gets nauseous at times; patient has had blood transfusions without no reactions Date of Last Stent Placement:: 08/01/2018 Past Psychological History: Anxiety, Depression Smoking Status: Never smoker Past Alcohol Use History: None Reported Past Drug Use History: None Reported - Past Family History Mother History Unknown: Yes Family Medical History: Congestive Heart Failure (CHF), Myocardial Infarction (OR) Additional Family Medical History / Comment(s): 77 Father History Unknown: Yes Family Medical History: COPD, Myocardial Infarction (OR) Additional Family Medical History / Comment(s): at 56 Sister(s) History Unknown: Yes Family Medical History: Myocardial Infarction (OR) Additional Family Medical History / Comment(s): at 56 Brother(s) Family Medical History: Cancer Additional Family Medical History / Comment(s): colon cancer General Exam Limitations: no limitations General appearance: alert, in no apparent distress Respiratory exam: Present: decreased breath sounds (Throughout all eaton) Cardiovascular Exam: Present: regular rate, normal rhythm, normal heart sounds. Absent: systolic murmur, diastolic murmur, rubs, gallop, clicks Extremities exam: Present: normal inspection, other (1+ pitting edema bilaterally) Neurological exam: Present: alert, oriented X3, CN II-XII intact Skin exam: Present: warm, dry, intact, normal color. Absent: rash Course Vital Signs 03/26/24 03/26/24 14:06 16:21 Temperature 98.7 F 98.5 F Pulse Rate 77 63 Respiratory 20 20 Rate Blood Pressure 145/54 164/51 O2 Sat by Pulse 96 96 Oximetry - Reevaluation(s) Reevaluation #1: 03/26/24 16:33 Case discussed with Derrick CLARK, [facility] physicians, for admission. HEART score 6. Medical Decision Making - Medical Decision Making Was pt. sent in by a medical professional or institution (, PATRICIA, FURNITURE REPAIRER, urgent care, hospital, or halfway...) When possible be specific @ -No Did you speak to anyone other than the patient for history (EMS, parent, family, police, friend...)? What history was obtained from this source @ -No Did you review nursing and triage notes (agree or disagree)? Why? @ -I reviewed and agree with nursing and triage notes Were old charts reviewed (outside hosp., previous admission, EMS record, old EKG, old radiological studies, urgent care reports/EKG's, halfway records)? Report findings @ -Prior ER visits and EKGs Differential Diagnosis (chest pain, altered mental status, abdominal pain women, abdominal pain men, vaginal bleeding, weakness, fever, dyspnea, syncope, headache, dizziness, GI bleed, back pain, seizure, CVA, palpatations, mental health, musculoskeletal)? @ -Differential Dyspnea:Coronary syndrome, arrhythmia, tamponade, asthma, COPD, pulmonary embolism, pneumonia, pneumothorax, pulmonary effusion, anaphylaxis, diabetic ketoacidosis, flailed chest, pulmonary contusion, diaphragmatic rupture, anemia, neuromuscular, this is not meant to be an all-inclusive list. EKG interpreted by me (3pts min.). @ -As above X-rays interpreted by me (1pt min.). @ -CXR interpreted by me negative for acute cardiopulmonary process. CT interpreted by me (1pt min.). @ -None done U/S interpreted by me (1pt. min.). @ -None done What testing was considered but not performed or refused? (CT, X-rays, U/S, labs)? Why? @ -None What meds were considered but not given or refused? Why? @ -None Did you discuss the management of the patient with other professionals (professionals i.e. , PA, FURNITURE REPAIRER, lab, RT, psych nurse, social services, piccolo mechanic, teacher, correctional officer chief, mental health case manager)? Give summary @ -Yes, case discussed with Angélica Wallace NP, for admission. Was smoking cessation discussed for >3mins.? @ -No Was critical care preformed (if so, how long)? @ -No Were there social determinants of health that impacted care today? How? (Homelessness, low income, unemployed, alcoholism, drug addiction, transportation, low edu. Level, literacy, decrease access to med. care, group home, rehab)? @ -No Was there de-escalation of care discussed even if they declined (Discuss DNR or withdrawal of care, Hospice)? DNR status @ -No What co-morbidities impacted this encounter? (DM, HTN, Smoking, COPD, CAD, Cancer, CVA, ARF, Chemo, Hep., AIDS, mental health diagnosis, sleep apnea, morbid obesity)? @ -Diabetes mellitus, hypertension, congestive heart failure, history of OR, COPD Was patient admitted / discharged? Hospital course, mention meds given and route, prescriptions, significant lab abnormalities, going to OR and other pertinent info. @ -Admitted. 63-year-old female presented to the ER for evaluation of shortness of breath. History and physical exam completed. Vital stable. Patient in no signs of acute distress. Patient having some conversational dyspnea during examination. 1+ bilateral pretibial pitting edema. EKG showing a sinus rhythm with a right bundle branch block. No evidence of infarct or isc hemia. Troponin undetectable. BNP 89. Viral swabs negative. Chest x-ray negative. Heart score 6. Given patient's extensive cardiac history and current symptoms admission was considered and discussed with Angélica Wallace NP, for cardiac ruleout. Cardiology on consult. Patient agreeable for admission. Patient admitted in stable condition. Case discussed with ED attending, . Undiagnosed new problem with uncertain prognosis? @ -No Drug Therapy requiring intensive monitoring for toxicity (Heparin, Nitro, Insulin, Cardizem)? @ -No Were any procedures done? @ -No Diagnosis/symptom? @ -Shortness of breath/history of congestive heart failure Acute, or Chronic, or Acute on Chronic? @ -Acute Uncomplicated (without systemic symptoms) or Complicated (systemic symptoms)? @ -Complicated Side effects of treatment? @ -No Exacerbation, Progression, or Severe Exacerbation? @ -No Poses a threat to life or bodily function? How? (Chest pain, USA, OR, pneumonia, PE, COPD, DKA, ARF, appy, cholecystitis, CVA, Diverticulitis, Homicidal, Suicidal, threat to staff... and all critical care pts) @ -Yes, ACS can lead to lethal cardiac arrhythmias. - Lab Data Result diagrams: 03/26/24 14:52 03/26/24 14:52 Lab Results 03/26/24 03/26/24 03/26/24 Range/Units 14:52 14:52 14:52 WBC 8.4 (3.8-10.6) k/uL RBC 5.06 (3.80-5.40) m/uL Hgb 12.4 (11.4-16.0) gm/dL Hct 39.6 (34.0-46.0) % MCV 78.3 L (80.0-100.0) fL MCH 24.6 L (25.0-35.0) pg MCHC 31.4 (31.0-37.0) g/dL RDW 16.3 H (11.5-15.5) % Plt Count 230 (150-450) k/uL MPV 7.2 Neutrophils % 74 % Lymphocytes % 19 % Monocytes % 3 % Eosinophils % 2 % Basophils % 1 % Neutrophils # 6.3 (1.3-7.7) k/uL Lymphocytes # 1.6 (1.0-4.8) k/uL Monocytes # 0.2 (0-1.0) k/uL Eosinophils # 0.2 (0-0.7) k/uL Basophils # 0.1 (0-0.2) k/uL Anisocytosis Slight Microcytosis Slight PT (10.0-12.5) sec INR (<1.2) APTT (22.0-30.0) sec Sodium 134 L (137-145) mmol/L Potassium 4.8 (3.5-5.1) mmol/L Chloride 106 (98-107) mmol/L Carbon Dioxide 17 L (22-30) mmol/L Anion Gap 11 mmol/L BUN 19 H (7-17) mg/dL Creatinine 0.80 (0.52-1.04) mg/dL Est GFR (CKD-EPI)AfAm 90 (>60 ml/min/1.73 sqM) Est GFR (CKD-EPI)NonAf 78 (>60 ml/min/1.73 sqM) Glucose 268 H (74-99) mg/dL Calcium 8.8 (8.4-10.2) mg/dL Magnesium 1.9 (1.6-2.3) mg/dL Total Bilirubin 0.5 (0.2-1.3) mg/dL AST 25 (14-36) U/L ALT 25 (4-34) U/L Alkaline Phosphatase 126 (38-126) U/L Troponin I <0.012 (0.000-0.034) ng/mL NT-Pro-B Natriuret Pep 89 pg/mL Total Protein 6.6 (6.3-8.2) g/dL Albumin 4.1 (3.5-5.0) g/dL Influenza Type A (PCR) (Not Detectd) Influenza Type B (PCR) (Not Detectd) RSV (PCR) (Not Detectd) SARS-CoV-2 (PCR) (Not Detectd) 03/26/24 03/26/24 Range/Units 14:52 14:57 WBC (3.8-10.6) k/uL RBC (3.80-5.40) m/uL Hgb (11.4-16.0) gm/dL Hct (34.0-46.0) % MCV (80.0-100.0) fL MCH (25.0-35.0) pg MCHC (31.0-37.0) g/dL RDW (11.5-15.5) % Plt Count (150-450) k/uL MPV Neutrophils % % Lymphocytes % % Monocytes % % Eosinophils % % Basophils % % Neutrophils # (1.3-7.7) k/uL Lymphocytes # (1.0-4.8) k/uL Monocytes # (0-1.0) k/uL Eosinophils # (0-0.7) k/uL Basophils # (0-0.2) k/uL Anisocytosis Microcytosis PT 10.4 (10.0-12.5) sec INR 0.9 (<1.2) APTT 24.2 (22.0-30.0) sec Sodium (137-145) mmol/L Potassium (3.5-5.1) mmol/L Chloride (98-107) mmol/L Carbon Dioxide (22-30) mmol/L Anion Gap mmol/L BUN (7-17) mg/dL Creatinine (0.52-1.04) mg/dL Est GFR (CKD-EPI)AfAm (>60 ml/min/1.73 sqM) Est GFR (CKD-EPI)NonAf (>60 ml/min/1.73 sqM) Glucose (74-99) mg/dL Calcium (8.4-10.2) mg/dL Magnesium (1.6-2.3) mg/dL Total Bilirubin (0.2-1.3) mg/dL AST (14-36) U/L ALT (4-34) U/L Alkaline Phosphatase (38-126) U/L Troponin I (0.000-0.034) ng/mL NT-Pro-B Natriuret Pep pg/mL Total Protein (6.3-8.2) g/dL Albumin (3.5-5.0) g/dL Influenza Type A (PCR) Not Detected (Not Detectd) Influenza Type B (PCR) Not Detected (Not Detectd) RSV (PCR) Not Detected (Not Detectd) SARS-CoV-2 (PCR) Not Detected (Not Detectd) - EKG Data -: EKG Interpreted by Me EKG Comments: EKG taken at 15: 2 showing a sinus rhythm with a right bundle branch block. T wave inversion in lead III. Ventricular rate 69, MN interval 211, QRS duration 143, QT/QTc 451/470. - Radiology Data Radiology results: report reviewed, image reviewed Disposition Clinical Impression: Shortness of breath, History of congestive heart failure Disposition: ADMITTED IP TO THIS [facility] Condition: Stable Referrals: None,Stated [REFERRING] - 1-2 days Time of Disposition: 16:34
[2024-03-26 15:11] LABS: Anisocytosis Slight; Basophils # (A) 0.1 k/uL (0-0.2); Basophils % (A) 1 %; Eosinophils # (A) 0.2 k/uL (0-0.7); Eosinophils % (A) 2 %; HCT 39.6 % (34.0-46.0); HGB 12.4 gm/dL (11.4-16.0); Lymphocytes # (A) 1.6 k/uL (1.0-4.8); Lymphocytes % (A) 19 %; MCH 24.6 pg (25.0-35.0); MCHC 31.4 g/dL (31.0-37.0); MCV 78.3 fL (80.0-100.0); Mean Platelet Volume 7.2; Microcytosis Slight; Monocytes # (A) 0.2 k/uL (0-1.0); Monocytes % (A) 3 %; Neutrophils # (A) 6.3 k/uL (1.3-7.7); Neutrophils % (A) 74 %; Platelet Count 230 k/uL (150-450); RBC 5.06 m/uL (3.80-5.40); RDW 16.3 % (11.5-15.5); WBC 8.4 k/uL (3.8-10.6)
[2024-03-26 15:21] LABS: ALT 25 U/L (4-34); AST 25 U/L (14-36); African American GFR (CKD) 90 (>60 ml/min/1.73 sqM); Albumin 4.1 g/dL (3.5-5.0); Alkaline Phosphatase 126 U/L (38-126); Anion Gap 11 mmol/L; Blood Urea Nitrogen 19 mg/dL (7-17); Calcium 8.8 mg/dL (8.4-10.2); Carbon Dioxide 17 mmol/L (22-30); Chloride 106 mmol/L (98-107); Glucose 268 mg/dL (74-99); Magnesium 1.9 mg/dL (1.6-2.3); Non-African American GFR(CKD) 78 (>60 ml/min/1.73 sqM); Potassium 4.8 mmol/L (3.5-5.1); Sodium 134 mmol/L (137-145); Total Bilirubin 0.5 mg/dL (0.2-1.3); Total Protein 6.6 g/dL (6.3-8.2)
[2024-03-26 15:30] LABS: NT-Pro-B-Type Natriuretic Pept 89 pg/mL
[2024-03-26 15:32] LABS: INR 0.9 (<1.2); Partial Thromboplastin Time 24.2 sec (22.0-30.0); Prothrombin Time 10.4 sec (10.0-12.5)
--- NOTE | 2024-03-26 15:39 | XR ---
EXAMINATION TYPE: XR chest 2V DATE OF EXAM: 03/26/2024 3:31 PM COMPARISON: Previous chest radiograph 02/20/2024. CLINICAL INDICATION: Female, 63 years old with history of dyspnea; [facility] TECHNIQUE: XR chest 2V Frontal and lateral views of the chest. FINDINGS: Cardiomegaly. No acute focal consolidation. No pleural effusion. No pneumothorax. Postsurgical changes in the right humeral head. IMPRESSION: No acute cardiopulmonary disease/process. [facility], , 03/26/2024 3:37 PM
[2024-03-26] MEDS ORDERED: ACETAMINOPHEN TAB 325 MG TAB PO PRN (16:31)
[2024-03-26] MEDS ORDERED: NALOXONE 0.4 MG/ML 1 ML VIAL IV PRN (16:31)
[2024-03-26] MEDS ORDERED: IPRATROPIUM-ALBUTEROL 3 ML NEB INHALATION PRN (17:33)
[2024-03-26] MEDS ORDERED: DEXTROSE 50% SYRINGE 50 ML IVP PRN ×2 (17:33)
--- NOTE | 2024-03-26 17:37 | P.HPIM ---
History of Present Illness H&P Date: 03/26/24 63 year old F with PMH of Asthma/COPD, sleep apnea on home O2 QHS, CAD with 3 stents, HTN, DM presents to the ED for shortness of breath. Patient reports loading groceries into her walker today when she started to feel short of breath. Her breathing has been getting progressively worse over the past month. She describes some lower extremity edema and 2 pillow orthopnea. She reports her O2 sat as low as 89% when she lays down to sleep. She reports fatigue and weakness. She describes waking up 8 times at night mostly to urinate. She denies any exertional chest pain. She has an LHC scheduled with Dr. Harkins this Wednesday. [facility] A1c of 12.1, Folate 16.1, TSH 2.75 and B12 433. In the ED she underwent extensive evaluation. BP 145/54, HR 77, RR 20, T 98.7F, 96% on RA. CBC, Coag panel, CMP significant for MCV 78.3, Na 134, bicarb 17, BUN 19, glu 268. Mag 1.9. Trop < 0.012. EKG sinus rhythm with RBBB. COVID, RSV, Flu neg. CXR negative. Patient is admitted for further workup and Cardiology evaluation. General: non toxic, no distress, appears at stated age Derm: warm, dry Head: atraumatic, normocephalic, symmetric Eyes: EOMI, no lid lag, anicteric sclera Mouth: no lip lesion, mucus membranes moist Cardiovascular: S1S2 reg, no murmur Lungs: Clear to auscultation bilateral, no rhonchi, no rales, no accessory muscle use Ext: no gross muscle atrophy, 2+ edema, no contractures Neuro: no focal neuro deficits Psych: Alert, oriented, appropriate affect Based on my assessment of this patient, this patient meets a high complexity level of care. Exertional shortness of breath: Multifactorial. History of Asthma/COPD + sleep apnea. Recent Echo and stress test per patient. Scheduled for LHC this Wednesday. Cardiology consulted. Fatigue + Generalized weakness: B12, Folate, TSH as above. Multifactorial. Uncontrolled DM, sleep apnea, frequent awakening at night. Advised follow up with Pulmonary for repeat sleep study and importance of better diabetic control. Fall precautions. PT and OT consult. Diabetes mellitus with hyperglycemia: A1c 12.1. Home meds include Levimir 30 units QHS and Novolog 20 units TID. Start ISS + Accuchecks ACHS. Hypoglycemic precautions. Elevated BUN with metabolic acidosis: Gently hydration is NS 45 cc/hr. Microcytosis: FeSO4 325 mg PO QMWF. Asthma/COPD Sleep apnea on home O2 QHS CAD with 3 stents: ASA 81 mg PO QD. Plavix 75 mg PO QD. Lipitor 40 mg PO QHS. HTN: Cardizem 300 mg PO QD. Losartan 50 mg PO BID. h/o CVA: ASA, Plavix and Lipitor as above. CODE STATUS: FULL CODE DVT Prophylaxis: SCD GI Prophylaxis: Protonix Designated medical POA if patient is not able to make medical decisions for themselves: I have reviewed the following customer consultant notes: ED note. I have reviewed the results of the following tests: As above. I have ordered the following tests: As above. I have discussed the care of this patient with the following independent historian: I have independently interpreted the following test below: EKG I have discussed the management of this patient with the following physician: Past Medical History Past Medical History: Asthma, Coronary Artery Disease (CAD), Heart Failure, COPD, CVA/TIA, Diabetes Mellitus, GERD/Reflux, Hearing Disorder / Deafness, Hyperlipidemia, Hypertension, Myocardial Infarction (NE), Osteoarthritis (OA), Pneumonia, Seizure Disorder, Sleep Apnea/CPAP/BIPAP, Thyroid Disorder Additional Past Medical History / Comment(s): additional hx: right bundle branch block,barretts esophagus, migraines, deanna hearing aids, lung nodules, fatty liver, pulmonary hypertension, heart murmur,obesity, IBS, RLS, arthritis, ADHD, DJD, anemia, lactose intolerance; last seizure 21 years ago, kidney stones x2, covid 07/08; CHF; TIA in 2019; two heart attacks 2011 and 2018 Last Myocardial Infarction Date:: History of Any Multi-Drug Resistant Organisms: MRSA Date of last positivie culture/infection: November 2020 MDRO Source:: Abdomen Past Surgical History: Bowel Resection, Cholecystectomy, Heart Catheterization With Stent, Hysterectomy Additional Past Surgical History / Comment(s): breast biopsy,esophageal surgery - 2002, Colostomy Apr 2020, colostomy reversed october 2020, cardiac stent 04/01/23 Past Anesthesia/Blood Transfusion Reactions: Postoperative Nausea & Vomiting (PONV) Additional Past Anesthesia/Blood Transfusion Reaction / Comment(s): gets nauseous at times; patient has had blood transfusions without no reactions Date of Last Stent Placement:: 08/01/2018 Past Psychological History: Anxiety, Depression Smoking Status: Never smoker Past Alcohol Use History: None Reported Past Drug Use History: None Reported - Past Family History Mother History Unknown: Yes Family Medical History: Congestive Heart Failure (CHF), Myocardial Infarction (NE) Additional Family Medical History / Comment(s): 77 Father History Unknown: Yes Family Medical History: COPD, Myocardial Infarction (NE) Additional Family Medical History / Comment(s): at 56 Sister(s) History Unknown: Yes Family Medical History: Myocardial Infarction (NE) Additional Family Medical History / Comment(s): at 56 Brother(s) Family Medical History: Cancer Additional Family Medical History / Comment(s): colon cancer Medications and Allergies Home Medications Medication Instructions Recorded Confirmed Type EPINEPHrine (Auto Inject) [Epipen] 0.3 mg IM ONCE PRN 04/19/20 11/08/23 History Insulin Glargine,Hum.rec.anlog 24 unit SQ HS 04/19/20 11/08/23 History [Lantus Solostar Pen] Sennosides/Docusate Sodium [Senna 1 tab PO BID 04/19/20 11/08/23 History Plus 8.6-50 mg Tablet] dilTIAZem HCL [Cartia Xt] 300 mg PO DAILY 07/14/20 11/08/23 History Insulin Aspart [NovoLOG Flexpen] 12 units SQ TID-W/MEALS 07/14/21 11/08/23 History Cholecalciferol [Vitamin D3 (25 50 mcg PO DAILY 07/30/21 11/08/23 History Mcg = 1000 Iu)] rOPINIRole HCL [Requip] 4 mg PO HS 07/30/21 11/08/23 History Albuterol Inhaler [Ventolin Hfa 2 puff INHALATION RT-QID PRN 10/30/21 11/08/23 History Inhaler] Ferrous Sulfate [Iron (65 MG 325 mg PO MOWEFR 03/13/22 11/08/23 History Elemental)] Aspirin EC [Ecotrin Low Dose] 81 mg PO DAILY 06/24/23 11/08/23 History Atorvastatin [Lipitor] 40 mg PO HS 06/24/23 11/08/23 History Clopidogrel [Plavix] 75 mg PO DAILY 06/24/23 11/08/23 History Oxybutynin Chloride [oxyBUTYnin 10 mg PO HS 06/24/23 11/08/23 History chloride ER] Semaglutide [Ozempic] 1 mg SQ MO 06/24/23 11/08/23 History metFORMIN HCL ER [Glucophage XR] 1,000 mg PO BID 06/24/23 11/08/23 History Fluticasone Propion/Salmeterol 1 puff INHALATION RT-BID 11/08/23 11/08/23 History [Wixela 250-50 Inhub] Losartan [Cozaar] 100 mg PO DAILY 11/08/23 11/08/23 History Miconazole Nitrate 2% Powder 1 applic TOPICAL DAILY PRN 11/08/23 11/08/23 History Pantoprazole [Protonix] 40 mg PO AC-BRKFST 11/08/23 11/08/23 History Rimegepant Sulfate [Nurtec Odt] 75 mg PO DAILY PRN 11/08/23 11/08/23 History Allergies Allergy/AdvReac Type Severity Reaction Status Date / Time ammonia Allergy Dyspnea & Verified 03/26/24 17:14 Passed Out bee venom protein (honey bee) Allergy Anaphylaxis Verified 03/26/24 17:14 exenatide [From Byetta] Allergy Unknown Verified 03/26/24 17:14 feathers Allergy Anaphylaxis Verified 03/26/24 17:14 meperidine [From Demerol] Allergy Hives, Verified 03/26/24 17:14 Rash, Hypotension meperidine HCl [From Demerol] Allergy Anaphylaxis Verified 03/26/24 17:14 mint Allergy Anaphylaxis Verified 03/26/24 17:14 mold Allergy Anaphylaxis Verified 03/26/24 17:14 nifedipine [From Procardia] Allergy Unknown Verified 03/26/24 17:14 venom-honey bee Allergy Anaphylaxis Verified 03/26/24 17:14 [bee venom (honey bee)] wool Allergy Anaphylaxis Verified 03/26/24 17:14 amlodipine AdvReac Headache Verified 03/26/24 17:14 atenolol AdvReac Dyspnea, Verified 03/26/24 17:14 Migraine barium sulfate AdvReac rectal Verified 03/26/24 17:14 bleeding cephalexin [From Keflex] AdvReac Dyspnea Verified 03/26/24 17:14 diphenhydramine AdvReac Hypertensio Verified 03/26/24 17:14 n diphtheria,pertussis AdvReac Dyspnea & Verified 03/26/24 17:14 (acellular),te Heart [From Boostrix Tdap] Palpitations & Nausea dulaglutide [From Trulicity] AdvReac Dyspnea Verified 03/26/24 17:14 fexofenadine [From Elena] AdvReac Migraine Verified 03/26/24 17:14 fexofenadine HCl AdvReac Muscle Pain Verified 03/26/24 17:14 [From Elena] fluoxetine AdvReac "Feeling Verified 03/26/24 17:14 Irritable" fluvastatin AdvReac Muscle Pain Verified 03/26/24 17:14 guaifenesin AdvReac Dyspnea Verified 03/26/24 17:14 hydrochlorothiazide AdvReac Tachycardia Verified 03/26/24 17:14 influenza virus vaccine, AdvReac Dyspnea & Verified 03/26/24 17:14 specific Heart Palpitations & Nausea isosorbide [From Imdur] AdvReac Migraine Verified 03/26/24 17:14 lisinopril AdvReac Fatigue, Verified 03/26/24 17:14 Cough modafinil AdvReac Headache Verified 03/26/24 17:14 nitroglycerin AdvReac Dizziness Verified 03/26/24 17:14 ondansetron [From Zofran] AdvReac Nausea Verified 03/26/24 17:14 paroxetine [From Paxil] AdvReac "Depression Verified 03/26/24 17:14 " paroxetine HCl [From Paxil] AdvReac "Depressed" Verified 03/26/24 17:14 pneumococcal vaccine AdvReac Dyspnea & Verified 03/26/24 17:14 Heart Palpitations & Nausea rimegepant [From Nurtec ODT] AdvReac Nausea & Verified 03/26/24 17:14 Vomiting sertraline HCl [From Zoloft] AdvReac Fatigue Verified 03/26/24 17:14 simvastatin [From Zocor] AdvReac Muscle/Joint Verified 03/26/24 17:14 Pain spironolactone AdvReac Nausea & Verified 03/26/24 17:14 Vomiting [id number]-[id number]-VbM Reductase AdvReac Muscle/Joint Verified 03/26/24 17:14 Inhibitor Pain [Idrsltr-Asn-Ibn Reductase Inhibitor] sumatriptan AdvReac Palpitation Verified 03/26/24 17:14 s venlafaxine [From Effexor] AdvReac Tachycardia Verified 03/26/24 17:14 zolpidem [From Ambien] AdvReac Dyspnea, Verified 03/26/24 17:14 Migraine zolpidem tartrate AdvReac Dyspnea, Verified 03/26/24 17:14 [From Ambien] Migraine zoster vaccine live AdvReac Dyspnea & Verified 03/26/24 17:14 Heart Palpitations & Nausea hay AdvReac Dyspnea Uncoded 03/26/24 17:14 lysol AdvReac Dyspnea Uncoded 03/26/24 17:14 Physical Exam Vitals: Vital Signs Temp Pulse Resp BP Pulse Ox 03/26/24 16:21 98.5 F 63 20 164/51 96 03/26/24 14:06 98.7 F 77 20 145/54 96 Intake and Output 03/26/24 03/26/24 03/26/24 06:59 14:59 22:59 Other: Weight 111.13 kg Results CBC & Chem 7: 03/26/24 14:52 03/26/24 14:52 Labs: Abnormal Lab Results - Last 24 Hours (Table) 03/26/24 03/26/24 Range/Units 14:52 14:52 MCV 78.3 L (80.0-100.0) fL MCH 24.6 L (25.0-35.0) pg RDW 16.3 H (11.5-15.5) % Sodium 134 L (137-145) mmol/L Carbon Dioxide 17 L (22-30) mmol/L BUN 19 H (7-17) mg/dL Glucose 268 H (74-99) mg/dL
[2024-03-26 21:32] LABS: Glucose,Whole Blood 255 mg/dL (70-110)
[2024-03-26] MEDS: ATORVASTATIN 80 MG TAB PO SCH (21:54)
[2024-03-26] MEDS: rOPINIRole HCL 4 MG TABLET PO SCH (21:54)
[2024-03-26] MEDS: OXYBUTYNIN 10 MG TAB.ER.24 PO SCH (21:55)
[2024-03-26] MEDS: LOSARTAN 50 MG TAB PO SCH (21:55)
[2024-03-26] MEDS: SODIUM CHLORIDE 0.9% 1,000 ML IV STA (21:58)
[2024-03-26] MEDS: INSULIN ASPART (NovoLOG) 100 UNIT/ML VIAL SQ SCH (22:29)
[2024-03-27 06:14] LABS: Glucose,Whole Blood 233 mg/dL (70-110)
[2024-03-27] MEDS: PANTOPRAZOLE 40 MG TABLET PO SCH (06:19)
[2024-03-27] MEDS ORDERED: ALPRAZolam 0.5 MG TAB PO PRN (09:05)
[2024-03-27] MEDS ORDERED: ALPRAZolam 0.25 MG TAB PO PRN (09:05)
[2024-03-27] MEDS ORDERED: NITROGLYCERIN SL TABS 0.4 MG TAB SUBLINGUAL PRN (09:05)
[2024-03-27] MEDS: DILTIAZEM CD 300 MG CAP.ER.24H PO SCH (09:17)
[2024-03-27] MEDS: CLOPIDOGREL 75 MG TAB PO SCH (09:17)
[2024-03-27] MEDS: ENOXAPARIN 40 MG/0.4 ML SYRINGE SQ SCH (09:17)
[2024-03-27] MEDS: LORATADINE 10 MG TAB PO SCH (09:17)
[2024-03-27] MEDS: ATORVASTATIN 80 MG TAB PO STA (09:17)
[2024-03-27] MEDS: ASPIRIN 325 MG TAB PO STA (09:17)
[2024-03-27] MEDS: ASPIRIN 81 MG PO SCH (10:12)
[2024-03-27] MEDS: SODIUM CHLORIDE 0.9% 1,000 ML IV ONE (10:34)
[2024-03-27] MEDS: HEPARIN SODIUM,PORCINE (1 ML) 2,500 UNIT in SODIUM CHLORIDE 0.9% 250 ML IRRIGATION PRN (10:34)
[2024-03-27] MEDS: HEPARIN SODIUM,PORCINE 10,000 UNIT in SODIUM CHLORIDE 0.9% 1,000 ML IRRIGATION PRN (10:34)
[2024-03-27] MEDS: fentaNYL (PF) 50 MCG/1 ML VIAL IVP ONE (10:58)
[2024-03-27] MEDS: LIDOCAINE 1% INJ 10MG/ML (20 ML MDV) SQ ONE ×2 (11:01→11:02)
[2024-03-27] MEDS: VERAPAMIL SYRINGE (5 MG/10 ML) INTRAARTER ONE (11:02)
--- NOTE | 2024-03-27 11:05 | P.CRDCN ---
History of Present Illness Consult date: 03/27/24 Consult reason: chest pain History of present illness: This is a 63-year-old female patient of Dr. Harkins with past medical history of CAD with previous stent to the LAD and mid LAD, hypertension, dyslipidemia, diabetes mellitus type 2, morbid obesity, chronic hypoxic respiratory failure on home O2 at 2 L as needed, obstructive sleep apnea on BiPAP, family history of premature coronary artery disease. We have been asked to evaluate the patient for chest pain. Patient presented to the emergency center due to shortness of breath. He had been going on for 2 to 3 days and seem to be worsening. She also also was having more dyspnea and fatigue with minimal ambulation. At the time of evaluation, patient denies chest pain, no lightheadedness or dizziness. No shortness of breath at rest. No palpitations. Blood pressure 170/86, heart rate 66, pulse ox 95% on CPAP. Patient had a visit with Dr. Harkins on 03/20/2024 and at that time she was scheduled for cardiac catheterization on 03/31. Discussed options with the patient and she is agreeable to move forward with a cardiac catheterization today. -EKG: Right bundle branch block -Chest x-ray: No acute process -Laboratory studies: WBC 8.4, hemoglobin 12.4. Sodium 134, potassium 4.8, CO2 17, BUN 19 creatinine 0.8. Troponin negative x 2. Influenza A, influenza B, RSV, COVID-19 not detected. -Home cardiac medications: Aspirin 81 mg daily, atorvastatin 40 mg daily, Plavix 75 mg daily, diltiazem 300 mg daily, Jardiance 10 mg daily, losartan 50 mg twice daily, patient is also on Ozempic. -Lexiscan Cardiolite stress test performed in the office on 02/08/2024 revealed nondiagnostic electrocardiographic stress testing. Probably abnormal myocardial perfusion imaging with partially reversible anterior wall defect. Those findings are suggestive of stress-induced ischemia in the LAD territory. -Echocardiogram performed in the office on 02/08/2024 revealed EF of 55 to 60%, grade 2 diastolic dysfunction. Mild left ventricular hypertrophy. Probably normal aortic valve. Mild mitral digitation. Mild tricuspid regurgitation, normal PASP. -PCI performed with stent to the LAD 04/02/2023 -Cardiac catheterization performed 08/01 2018 revealed 30% distal left main, 40% proximal LAD, 80% mid LAD, right dominant. Status post PCI of the mid LAD. Review Of Systems: At the time of my exam: CONSTITUTIONAL: Denies fever or chills. HEENT: Denies blurred vision, vision changes, or eye pain. Denies hemoptysis CARDIOVASCULAR: Denies chest pain. Denies orthopnea. Denies PND. Denies palpitations RESPIRATORY: Denies shortness of breath. GASTROINTESTINAL: Denies abdominal pain. Denies nausea or vomiting. HEMATOLOGIC: Denies bleeding disorders. GENITOURINARY: Denies any blood in urine. SKIN: Denies puritis. Denies rash. Physical examination: Gen: This is a 63-year-old morbidly obese female in no acute distress VS: reviewed HEENT: Head is atraumatic, normocephalic. Pupils equal, round. Sclerae is anicteric. NECK: Supple. No JVD. LUNGS: Clear to auscultation. No wheezes or rhonchi. No intercostal retractions. HEART: Regular rate and rhythm. 2/6 systolic murmur. ABDOMEN: Soft No tenderness. EXTREMITIES: No pedal edema. No calf tenderness. NEUROLOGICAL: Patient is awake, alert and oriented x3. Assessment: Chest pain with previously abnormal MPI 02/08/2024 History of coronary artery disease with previous stent to the LAD and mid LAD Hypertension Dyslipidemia Diabetes mellitus type 2 Morbid obesity with BMI of 51 Obstructive sleep apnea on BiPAP Family history of premature coronary artery disease Plan: Resume patient's home cardiac medications Schedule patient for left heart catheterization today with Dr. Harkins No need to repeat echocardiogram as this was done in the office on 02/08/2024 Further recommendations to follow based upon clinical course Thank you kindly for this consultation. Nurse practitioner note has been reviewed, I agree with documented findings and plan of care. Patient was seen and examined. Past Medical History Past Medical History: Asthma, Coronary Artery Disease (CAD), Cancer, Heart Failure, COPD, CVA/TIA, Diabetes Mellitus, GERD/Reflux, Hearing Disorder / Deafness, Hyperlipidemia, Hypertension, Myocardial Infarction ([place]), Osteoarthritis (OA), Pneumonia, Seizure Disorder, Sleep Apnea/CPAP/BIPAP, Thyroid Disorder Additional Past Medical History / Comment(s): additional hx: right bundle branch block,barretts esophagus, migraines, deanna hearing aids, 7 lung nodules, fatty liver, pulmonary hypertension, heart murmur,obesity, IBS, RLS, arthritis, ADHD, DJD, anemia, lactose intolerance; last seizure 24 years ago, kidney stones x2, covid 07/08; CHF; TIAx3 in 2022; two heart attacks 2011 and 2018, bowel Ca 2019 Last Myocardial Infarction Date:: 08/01/2018 History of Any Multi-Drug Resistant Organisms: MRSA Date of last positivie culture/infection: November 2020 MDRO Source:: Abdomen Past Surgical History: Bowel Resection, Cholecystectomy, Heart Catheterization With Stent, Hysterectomy Additional Past Surgical History / Comment(s): breast biopsy,esophageal surgery - 2002, Bowel resection with Colostomy Apr 2020, colostomy reversed october 2020, cardiac stentx2 04/01/23 Past Anesthesia/Blood Transfusion Reactions: Postoperative Nausea & Vomiting (PONV) Additional Past Anesthesia/Blood Transfusion Reaction / Comment(s): gets nauseous at times; patient has had blood transfusions without no reactions Date of Last Stent Placement:: 04/01/2023 Past Psychological History: ADD/ADHD, Anxiety, Depression Smoking Status: Never smoker Past Alcohol Use History: None Reported Past Drug Use History: None Reported - Past Family History Mother History Unknown: Yes Family Medical History: Congestive Heart Failure (CHF), Myocardial Infarction ([place]) Additional Family Medical History / Comment(s): 77 Father History Unknown: Yes Family Medical History: COPD, Myocardial Infarction ([place]) Additional Family Medical History / Comment(s): at 56 Sister(s) History Unknown: Yes Family Medical History: Myocardial Infarction ([place]) Additional Family Medical History / Comment(s): at 56 Brother(s) Family Medical History: Cancer Additional Family Medical History / Comment(s): colon cancer Medications and Allergies Home Medications Medication Instructions Recorded Confirmed Type Insulin Glargine,Hum.rec.anlog 30 unit SQ HS 04/19/20 03/26/24 History [Lantus Solostar Pen] Sennosides/Docusate Sodium [Senna 1 tab PO BID PRN 04/19/20 03/26/24 History Plus 8.6-50 mg Tablet] dilTIAZem HCL [Cartia Xt] 300 mg PO DAILY 07/14/20 03/26/24 History Insulin Aspart [NovoLOG Flexpen] 20 units SQ AC-TID 07/14/21 03/26/24 History rOPINIRole HCL [Requip] 4 mg PO HS 07/30/21 03/26/24 History Albuterol Inhaler [Ventolin Hfa 2 puff INHALATION RT-QID PRN 10/30/21 03/26/24 History Inhaler] Ferrous Sulfate [Iron (65 MG 325 mg PO MOWEFR 03/13/22 03/26/24 History Elemental)] Aspirin EC [Ecotrin Low Dose] 81 mg PO DAILY 06/24/23 03/26/24 History Atorvastatin [Lipitor] 40 mg PO HS 06/24/23 03/26/24 History Clopidogrel [Plavix] 75 mg PO DAILY 06/24/23 03/26/24 History Oxybutynin Chloride [oxyBUTYnin 10 mg PO HS 06/24/23 03/26/24 History chloride ER] Semaglutide [Ozempic] 1 mg SQ MO 06/24/23 03/26/24 History metFORMIN HCL ER [Glucophage XR] 1,000 mg PO BID 06/24/23 03/26/24 History Fluticasone Propion/Salmeterol 1 puff INHALATION RT-BID 11/08/23 03/26/24 History [Wixela 250-50 Inhub] Losartan [Cozaar] 50 mg PO BID 11/08/23 03/26/24 History Pantoprazole [Protonix] 40 mg PO AC-BRKFST 11/08/23 03/26/24 History Cholecalciferol (Vitamin D3) 50 mcg PO DAILY 03/26/24 03/26/24 History [Vitamin D3 (50 Mcg = 2000 Iu)] Empagliflozin [Jardiance] 10 mg PO DAILY 03/26/24 03/26/24 History Loratadine [Claritin] 10 mg PO DAILY 03/26/24 03/26/24 History Allergies Allergy/AdvReac Type Severity Reaction Status Date / Time ammonia Allergy Dyspnea & Verified 03/26/24 17:14 Passed Out bee venom protein (honey bee) Allergy Anaphylaxis Verified 03/26/24 17:14 exenatide [From Byetta] Allergy Unknown Verified 03/26/24 17:14 feathers Allergy Anaphylaxis Verified 03/26/24 17:14 meperidine [From Demerol] Allergy Hives, Verified 03/26/24 17:14 Rash, Hypotension meperidine HCl [From Demerol] Allergy Anaphylaxis Verified 03/26/24 17:14 mint Allergy Anaphylaxis Verified 03/26/24 17:14 mold Allergy Anaphylaxis Verified 03/26/24 17:14 nifedipine [From Procardia] Allergy Unknown Verified 03/26/24 17:14 venom-honey bee Allergy Anaphylaxis Verified 03/26/24 17:14 [bee venom (honey bee)] wool Allergy Anaphylaxis Verified 03/26/24 17:14 amlodipine AdvReac Headache Verified 03/26/24 17:14 atenolol AdvReac Dyspnea, Verified 03/26/24 17:14 Migraine barium sulfate AdvReac rectal Verified 03/26/24 17:14 bleeding cephalexin [From Keflex] AdvReac Dyspnea Verified 03/26/24 17:14 diphenhydramine AdvReac Hypertensio Verified 03/26/24 17:14 n diphtheria,pertussis AdvReac Dyspnea & Verified 03/26/24 17:14 (acellular),te Heart [From Boostrix Tdap] Palpitations & Nausea dulaglutide [From Trulicity] AdvReac Dyspnea Verified 03/26/24 17:14 fexofenadine [From Elena] AdvReac Migraine Verified 03/26/24 17:14 fexofenadine HCl AdvReac Muscle Pain Verified 03/26/24 17:14 [From Elena] fluoxetine AdvReac "Feeling Verified 03/26/24 17:14 Irritable" fluvastatin AdvReac Muscle Pain Verified 03/26/24 17:14 guaifenesin AdvReac Dyspnea Verified 03/26/24 17:14 hydrochlorothiazide AdvReac Tachycardia Verified 03/26/24 17:14 influenza virus vaccine, AdvReac Dyspnea & Verified 03/26/24 17:14 specific Heart Palpitations & Nausea isosorbide [From Imdur] AdvReac Migraine Verified 03/26/24 17:14 lisinopril AdvReac Fatigue, Verified 03/26/24 17:14 Cough modafinil AdvReac Headache Verified 03/26/24 17:14 nitroglycerin AdvReac Dizziness Verified 03/26/24 17:14 ondansetron [From Zofran] AdvReac Nausea Verified 03/26/24 17:14 paroxetine [From Paxil] AdvReac "Depression Verified 03/26/24 17:14 " paroxetine HCl [From Paxil] AdvReac "Depressed" Verified 03/26/24 17:14 pneumococcal vaccine AdvReac Dyspnea & Verified 03/26/24 17:14 Heart Palpitations & Nausea rimegepant [From Nurtec ODT] AdvReac Nausea & Verified 03/26/24 17:14 Vomiting sertraline HCl [From Zoloft] AdvReac Fatigue Verified 03/26/24 17:14 simvastatin [From Zocor] AdvReac Muscle/Joint Verified 03/26/24 17:14 Pain spironolactone AdvReac Nausea & Verified 03/26/24 17:14 Vomiting Yhutpeu-DFN-GkV Reductase AdvReac Muscle/Joint Verified 03/26/24 17:14 Inhibitor Pain [Lsjelyt-Ibz-Ddb Reductase Inhibitor] sumatriptan AdvReac Palpitation Verified 03/26/24 17:14 s venlafaxine [From Effexor] AdvReac Tachycardia Verified 03/26/24 17:14 zolpidem [From Ambien] AdvReac Dyspnea, Verified 03/26/24 17:14 Migraine zolpidem tartrate AdvReac Dyspnea, Verified 03/26/24 17:14 [From Ambien] Migraine zoster vaccine live AdvReac Dyspnea & Verified 03/26/24 17:14 Heart Palpitations & Nausea hay AdvReac Dyspnea Uncoded 03/26/24 17:14 lysol AdvReac Dyspnea Uncoded 03/26/24 17:14 Physical Exam Vitals: Vital Signs Temp Pulse Pulse Resp BP BP Pulse Ox 03/27/24 07:15 98.4 F 66 17 170/86 95 03/27/24 03:01 97.3 F L 70 18 144/66 98 03/26/24 21:18 97.8 F 70 19 168/77 98 03/26/24 20:35 72 20 157/60 97 03/26/24 18:00 68 20 147/56 97 03/26/24 16:21 98.5 F 63 20 164/51 96 03/26/24 14:06 98.7 F 77 20 145/54 96 Intake and Output 03/26/24 03/27/24 03/27/24 22:59 06:59 14:59 Other: # Voids 1 3 Weight 111.13 kg Results 03/26/24 14:52 03/26/24 14:52 Cardiac Enzymes 03/26/24 03/26/24 03/26/24 Range/Units 14:52 14:52 20:46 AST 25 (14-36) U/L Troponin I <0.012 <0.012 (0.000-0.034) ng/mL Coagulation 03/26/24 Range/Units 14:52 PT 10.4 (10.0-12.5) sec APTT 24.2 (22.0-30.0) sec CBC 03/26/24 Range/Units 14:52 WBC 8.4 (3.8-10.6) k/uL RBC 5.06 (3.80-5.40) m/uL Hgb 12.4 (11.4-16.0) gm/dL Hct 39.6 (34.0-46.0) % Plt Count 230 (150-450) k/uL Comprehensive Metabolic Panel 03/26/24 Range/Units 14:52 Sodium 134 L (137-145) mmol/L Potassium 4.8 (3.5-5.1) mmol/L Chloride 106 (98-107) mmol/L Carbon Dioxide 17 L (22-30) mmol/L BUN 19 H (7-17) mg/dL Creatinine 0.80 (0.52-1.04) mg/dL Glucose 268 H (74-99) mg/dL Calcium 8.8 (8.4-10.2) mg/dL AST 25 (14-36) U/L ALT 25 (4-34) U/L Alkaline Phosphatase 126 (38-126) U/L Total Protein 6.6 (6.3-8.2) g/dL Albumin 4.1 (3.5-5.0) g/dL Current Medications Generic Name Dose Route Start Last Admin Trade Name Freq PRN Reason Stop Dose Admin Acetaminophen 650 mg 03/26/24 16:31 Acetaminophen Tab 325 Mg Tab PO Q6HR PRN Mild Pain or Fever > 100.5 Albuterol/Ipratropium 3 ml 03/26/24 17:33 Ipratropium-Albuterol 3 Ml Neb INHALATION RT-QID PRN Shortness Of Breath Or Wheezing Aspirin 81 mg 03/27/24 09:00 Aspirin 81 Mg PO DAILY ROSANNE Atorvastatin Calcium 40 mg 03/26/24 21:00 03/26/24 21:54 Atorvastatin 80 Mg Tab PO 40 mg HS ROSANNE Administration Clopidogrel Bisulfate 75 mg 03/27/24 09:00 Clopidogrel 75 Mg Tab PO DAILY ROSANNE Dextrose/Water 25 ml 03/26/24 17:33 Dextrose 50% Syringe 50 Ml IVP PER PROTOCOL PRN Hypoglycemia Protocol Dextrose/Water 50 ml 03/26/24 17:33 Dextrose 50% Syringe 50 Ml IVP PER PROTOCOL PRN Hypoglycemia Protocol Diltiazem HCl 300 mg 03/27/24 09:00 Diltiazem Cd 300 Mg Cap.Er.24h PO DAILY ROSANNE Enoxaparin Sodium 40 mg 03/27/24 09:00 Enoxaparin 40 Mg/0.4 Ml Syringe SQ DAILY ROSANNE Ferrous Sulfate 325 mg 03/27/24 12:00 Ferrous Sulfate 325 Mg Tab PO MoWeFr@1200 ROSANNE Sodium Chloride 1,000 mls @ 45 mls/hr 03/26/24 16:48 03/26/24 21:58 Saline 0.9% IV 03/27/24 15:01 Not Given .[id number] STA Insulin Aspart 0 unit 03/26/24 21:00 03/27/24 06:18 Insulin Aspart (Novolog) 100 Unit/Ml Vial SQ 2 unit ACHS ROSANNE Administration Protocol Loratadine 10 mg 03/27/24 09:00 Loratadine 10 Mg Tab PO DAILY ROSANNE Losartan Potassium 50 mg 03/26/24 21:00 03/26/24 21:55 Losartan 50 Mg Tab PO 50 mg BID ROSANNE Administration Naloxone HCl 0.2 mg 03/26/24 16:31 Naloxone 0.4 Mg/Ml 1 Ml Vial IV Q2M PRN Opioid Reversal Oxybutynin Chloride 10 mg 03/26/24 21:00 03/26/24 21:55 Oxybutynin 10 Mg Tab.Er.24 PO 10 mg HS ROSANNE Administration Pantoprazole Sodium 40 mg 03/27/24 07:30 03/27/24 06:19 Pantoprazole 40 Mg Tablet PO 40 mg AC-BRKFST ROSANNE Administration Ropinirole HCl 4 mg 03/26/24 21:00 03/26/24 21:54 Ropinirole Hcl 4 Mg Tablet PO 4 mg HS ROSANNE Administration Intake and Output 03/26/24 03/27/24 03/27/24 22:59 06:59 14:59 Other: # Voids 1 3 Weight 111.13 kg 03/26/24 14:52 03/26/24 14:52
[2024-03-27] MEDS: HEPARIN SODIUM 1,000 UN/ML (10ML VL) IVP ONE (11:06)
[2024-03-27] MEDS: IOPAMIDOL-370 100ML BTL INJ ONE (11:11)
[2024-03-27] MEDS ORDERED: RX INFO: IV CONTRAST WAS GIVEN 1 EACH MISC MISCELLANE PRN (11:25)
--- NOTE | 2024-03-27 11:31 | P.CARDCATH ---
Date of Procedure: 03/27/24 Description of Procedure: Cardiac Catheterization: The patient is a 63-year-old female with known history of hypertension hyperlipidemia, history of stenting of the LAD in 2019 who recently had an abnormal MPI and she presented with symptoms of chest comfort but no evidence of acute myocardial infarction. Recommendations were made regarding cardiac catheterization, the risks and the complications were discussed with the patient who is in full understanding and agreement. Procedure Description: Patient was brought to assistant laboratory director in fasting semi-sedated state after receiving Fentanyl and Benadryl achieiving moderate conscious sedated state. Using Xylocaine Anesthesia and modified Seldinger technique, a 6-Micronesian sheath was introduced in the right radial artery . Subsequently, selective coronary angiography was performed using a 5-Micronesian 3.5 bend Alondra catheter. Multiple views of the coronary artery including hemiaxial views were obtained. The 5 Micronesian pigtail catheter was used to cross the aortic valve and LVEDP was calculated. Following that, catheter and sheath were removed. Hemostasis was obtained with deployment of vascular band . There was no immediate complication. Patient was returned to room in stable condition. Of note, the patient received a total of 5000 units of intravenous heparin as well as intra-arterial verapamil. Findings: Fluoroscopy: Calcification of the left main and LAD was noted Left main: This is a large size vessel, bifurcating into LAD and left circumflex, calcified in the distal segment. The distal left main has an eccentric 30 to 40% plaque, the rest of the vessel has no high-grade stenosis. LAD: This is a large size vessel, reaching to the apex, giving rise to 2 diagonal branch of small to moderate caliber. The proximal LAD has 20 to 30% plaque. The mid LAD has a stent that is patent with no significant in-stent restenosis. There is a 70% stenosis at the ostium of the diagonal branch. There is a MARIE-3 flow into the diagonal branch. Left circumflex: This is a nondominant vessel, giving rise to 2 large obtuse marginal branch. The left circumflex has mild intimal disease of 10 to 20% with no high-grade stenosis RCA: This is a large dominant vessel, bifurcating distally to PDA and PLV. The right coronary artery has mild intimal disease with no high-grade stenosis. Left Ventriculogram: Not performed Hemodynamics: There was no gradient across aortic valve, LVEDP was 20-24 mmHg Conclusion: 1. No evidence of restenosis in the mid LAD stent 2. Mild to moderate disease in the distal left main 3. Mild obstructive disease in the left circumflex and the RCA 4. Elevated LVEDP Recommendations: The patient will continue present therapy with the aggressive coronary risks modification and weight reduction. The findings and the recommendations were discussed with the patient and the family and they were in full understanding and agreement. Duration of sedation is 14 minutes.
[2024-03-27 11:59] LABS: Glucose,Whole Blood 195 mg/dL (70-110)
[2024-03-27] MEDS: SODIUM CHLORIDE 0.9% 1,000 ML in EMPTY BAG 1 BAG IV SCH (12:32)
[2024-03-27] MEDS: SODIUM CHLORIDE 0.9% 1,000 ML IV SCH (12:33)
--- NOTE | 2024-03-27 13:13 | P.DS ---
Providers Date of admission: 03/26/24 17:03 Attending physician: Lizzy Reina MD Consults: 03/26/24 16:31 Consult Physician Urgent Consulting Provider: Latrell Harkins Consult Reason/Comments: shortness of breath Do you want consulting provider notified?: Yes, Notify in am Primary care physician: [facility] Hospital Course: Hospital Course: 63 year old F with PMH of Asthma/COPD, sleep apnea on home O2 QHS, CAD with 3 stents, HTN, DM presented to the ED for shortness of breath. She brings blood work from the [place] including A1c of 12.1, Folate 16.1, TSH 2.75 and B12 433. In the ED she underwent extensive evaluation. BP 145/54, HR 77, RR 20, T 98.7F, 96% on RA. CBC, coagulation panel, CMP significant for MCV 78.3, Na 134, bicarb 17, BUN 19, glucose 268, magnesium 1.9, troponin < 0.012. EKG sinus rhythm with RBBB. COVID, RSV, Flu neg. CXR negative. Cardiology was consulted. She underwent cardiac catheterization which revealed no evidence of restenosis in the mid LAD stent, mild to moderate disease in the distal left main, mild obstructive disease in the left circumflex and the RCA, elevated LVEDP. Continuation of medical management as well as coronary risk modification and weight reduction was recommended. Patient is medically stable for discharge on current home medications. Patient should follow up with PCP, Dr. Harkins, Dr. Fried for a repeat sleep study, and Dr. Sanchez for diabetes management. Final Diagnosis: Exertional shortness of breath Diabetes mellitus with hyperglycemia Elevated BUN with metabolic acidosis Microcytosis Asthma/COPD Sleep apnea on home O2 QHS CAD with 3 stents HTN h/o CVA Physical examination: Vital signs reviewed General: None toxic, no distress, appears at stated age, Derm: No unusual rashes/lesions, warm Head: Atraumatic normocephalic, symmetric Eyes: EOMI, no lid lag, anicteric sclera, pupils equal round reactive to light ENT: Nose and ears atraumatic Neck: No cervical lymphadenopathy, trachea midline, supple Mouth: No lip lesion, mucus membranes moist Cardiovascular: S1S2 reg, no murmur, Lungs: CTA bilateral, no rhonchi, no rales, no accessory muscle use Abdominal: Soft nontender to palpation, no guarding Ext: Muscle strength 5 out of 5 in all 4 extremities grossly, no gross muscle atrophy, no contractures, positive dorsalis pedis pulse bilateral, mild lower extremity edema Neuro: CN II-XI grossly intact, no gross focal neuro deficits Psych: Alert, oriented, appropriate affect and mood I saw and evaluated the patient during the santiago and critical portions of this encounter, and discussed the case in detail with the resident author of this note, I agree with the Assessment and Plan, and my changes, if any, are noted below. Cardiac cath performed, results as above. Her exertional SOB and fatigue is multifactorial likely due to Asthma/COPD, sleep apnea and frequent awakening from polyuria from uncontrolled DM. Follow up with PCP within 1-2 days of discharge and Pulmonary + Cardiology + Endocrinology within 1 week of discharge. This complex discharge took 35 minutes to complete. Patient Condition at Discharge: Stable Plan - Discharge Summary Discharge Rx Participant: No New Discharge Prescriptions: Continue RX: Sennosides/Docusate Sodium [Senna Plus 8.6-50 mg Tablet] 1 tab PO BID PRN PRN Reason: Constipation RX: Insulin Glargine,Hum.rec.anlog [Lantus Solostar Pen] 30 unit SQ HS RX: Albuterol Inhaler [Ventolin Hfa Inhaler] 2 puff INHALATION RT-QID PRN PRN Reason: Shortness Of Breath RX: metFORMIN HCL ER [Glucophage XR] 1,000 mg PO BID RX: Clopidogrel [Plavix] 75 mg PO DAILY RX: Atorvastatin [Lipitor] 40 mg PO HS RX: Semaglutide [Ozempic] 1 mg SQ MO RX: Oxybutynin Chloride [oxyBUTYnin chloride ER] 10 mg PO HS RX: Pantoprazole [Protonix] 40 mg PO AC-BRKFST RX: Empagliflozin [Jardiance] 10 mg PO DAILY RX: Cholecalciferol (Vitamin D3) [Vitamin D3 (50 Mcg = 2000 Iu)] 50 mcg PO DAILY RX: dilTIAZem HCL [Cartia Xt] 300 mg PO DAILY RX: Insulin Aspart [NovoLOG Flexpen] 20 units SQ AC-TID RX: rOPINIRole HCL [Requip] 4 mg PO HS RX: Ferrous Sulfate [Iron (65 MG Elemental)] 325 mg PO MOWEFR RX: Aspirin EC [Ecotrin Low Dose] 81 mg PO DAILY RX: Fluticasone Propion/Salmeterol [Wixela 250-50 Inhub] 1 puff INHALATION RT-BID RX: Losartan [Cozaar] 50 mg PO BID RX: Loratadine [Claritin] 10 mg PO DAILY Discharge Medication List RX: Insulin Glargine,Hum.rec.anlog [Lantus Solostar Pen] 30 unit SQ HS 04/19/20 [History] RX: Sennosides/Docusate Sodium [Senna Plus 8.6-50 mg Tablet] 1 tab PO BID PRN 04/19/20 [History] RX: dilTIAZem HCL [Cartia Xt] 300 mg PO DAILY 07/14/20 [History] RX: Insulin Aspart [NovoLOG Flexpen] 20 units SQ AC-TID 07/14/21 [History] RX: rOPINIRole HCL [Requip] 4 mg PO HS 07/30/21 [History] RX: Albuterol Inhaler [Ventolin Hfa Inhaler] 2 puff INHALATION RT-QID PRN 10/30/21 [History] RX: Ferrous Sulfate [Iron (65 MG Elemental)] 325 mg PO MOWEFR 03/13/22 [History] RX: Aspirin EC [Ecotrin Low Dose] 81 mg PO DAILY 06/24/23 [History] RX: Atorvastatin [Lipitor] 40 mg PO HS 06/24/23 [History] RX: Clopidogrel [Plavix] 75 mg PO DAILY 06/24/23 [History] RX: Oxybutynin Chloride [oxyBUTYnin chloride ER] 10 mg PO HS 06/24/23 [History] RX: Semaglutide [Ozempic] 1 mg SQ MO 06/24/23 [History] RX: metFORMIN HCL ER [Glucophage XR] 1,000 mg PO BID 06/24/23 [History] RX: Fluticasone Propion/Salmeterol [Wixela 250-50 Inhub] 1 puff INHALATION RT-B ID 11/08/23 [History] RX: Losartan [Cozaar] 50 mg PO BID 11/08/23 [History] RX: Pantoprazole [Protonix] 40 mg PO AC-BRKFST 11/08/23 [History] RX: Cholecalciferol (Vitamin D3) [Vitamin D3 (50 Mcg = 2000 Iu)] 50 mcg PO DAILY 03/26/24 [History] RX: Empagliflozin [Jardiance] 10 mg PO DAILY 03/26/24 [History] RX: Loratadine [Claritin] 10 mg PO DAILY 03/26/24 [History] Follow up Appointment(s)/Referral(s): Latrell Harkins MD [STAFF PHYSICIAN] - 1 Week None,Stated [REFERRING] - 1-2 days Felix Sanchez MD [REFERRING] - 1 Week Ivanna Fried MD [STAFF PHYSICIAN] - 1 Week Discharge Disposition: HOME SELF-CARE
[2024-03-27] MEDS: FERROUS SULFATE 325 MG TAB PO SCH (13:17)
[2024-03-27 15:27] VITALS: RESP 16; TEMP 97.8
[2024-03-27 15:28] VITALS: BP 158/99; PULSE 77
== END 2024-03-27 17:25 | disposition home or self-care (01) ==
LOC: EC 14:05 → 6NMEDSUR 17:03
PROVIDERS: ADMIT Family Medicine; ATTEND Family Medicine
DX: R06.02 Shortness of breath (principal); E11.65 Type 2 diabetes mellitus with hyperglycemia; E87.29 Other acidosis; J44.89 Other specified chronic obstructive pulmonary disease; K21.9 Gastro-esophageal reflux disease without esophagitis; E66.01 Morbid (severe) obesity due to excess calories; E78.5 Hyperlipidemia, unspecified; F41.9 Anxiety disorder, unspecified; F32.A Depression, unspecified; Z68.43 Body mass index [BMI] 50.0-59.9, adult; G25.81 Restless legs syndrome; G40.909 Epilepsy, unspecified, not intractable, without status epilepticus; G47.33 Obstructive sleep apnea (adult) (pediatric); H91.90 Unspecified hearing loss, unspecified ear; I11.0 Hypertensive heart disease with heart failure; I50.9 Heart failure, unspecified; I25.10 Atherosclerotic heart disease of native coronary artery without angina pectoris; I25.2 Old myocardial infarction; I27.20 Pulmonary hypertension, unspecified; I45.10 Unspecified right bundle-branch block; Z79.02 Long term (current) use of antithrombotics/antiplatelets; Z79.4 Long term (current) use of insulin; Z79.82 Long term (current) use of aspirin; Z79.84 Long term (current) use of oral hypoglycemic drugs; Z79.899 Other long term (current) drug therapy; Z79.85 Long-term (current) use of injectable non-insulin antidiabetic drugs; Z86.73 Personal history of transient ischemic attack (TIA), and cerebral infarction without residual deficits; Z95.5 Presence of coronary angioplasty implant and graft; Z97.4 Presence of external hearing-aid; Z99.81 Dependence on supplemental oxygen
CPT/HCPCS: 96372; 99285; 36415; 93005; 93458; 83880; 80053; 83735; 84484; 85025; 85610; 85730; 87636; 71046; G0378 ×2; J1644 ×3; J2003; J1650; Q9967; J3010

== ENCOUNTER 2024-05-18 12:24 | Emergency (ER) | payer MEDICARE, OTHER ==
[2024-05-18 12:43] VITALS: TEMP 98.2
--- NOTE | 2024-05-18 13:32 | ED ---
General Adult HPI - General Chief complaint: Chest Pain Stated complaint: chest pain Time Seen by Provider: 05/18/24 12:59 Source: patient, RN notes reviewed Mode of arrival: ambulatory Limitations: no limitations - History of Present Illness Initial comments: 63-year-old female with history of CAD presents to the emergency department for evaluation of chest pain. Patient reports that she has been experiencing pain under her left breast on and off for the past week. She states that at most it has lasted around 10 minutes. She admits to experiencing multiple episodes a day. She denies any aggravating factors. Patient states that she has been off of her aspirin and Plavix for 2 days and attempt to have a spinal tap performed. She does report taking her aspirin and Plavix today. She reports having a heart catheterization last month with Dr. Harkins. She is not having active pain. - Related Data Home Medications Medication Instructions Recorded Confirmed Insulin Glargine,Hum.rec.anlog 30 unit SQ HS 04/19/20 03/26/24 [Lantus Solostar Pen] Sennosides/Docusate Sodium [Senna 1 tab PO BID PRN 04/19/20 03/26/24 Plus 8.6-50 mg Tablet] dilTIAZem HCL [Cartia Xt] 300 mg PO DAILY 07/14/20 03/26/24 Insulin Aspart [NovoLOG Flexpen] 20 units SQ AC-TID 07/14/21 03/26/24 rOPINIRole HCL [Requip] 4 mg PO HS 07/30/21 03/26/24 Albuterol Inhaler [Ventolin Hfa 2 puff INHALATION RT-QID PRN 10/30/21 03/26/24 Inhaler] Ferrous Sulfate [Iron (65 MG 325 mg PO MOWEFR 03/13/22 03/26/24 Elemental)] Aspirin EC [Ecotrin Low Dose] 81 mg PO DAILY 06/24/23 03/26/24 Atorvastatin [Lipitor] 40 mg PO HS 06/24/23 03/26/24 Clopidogrel [Plavix] 75 mg PO DAILY 06/24/23 03/26/24 Oxybutynin Chloride [oxyBUTYnin 10 mg PO HS 06/24/23 03/26/24 chloride ER] Semaglutide [Ozempic] 1 mg SQ MO 06/24/23 03/26/24 metFORMIN HCL ER [Glucophage XR] 1,000 mg PO BID 06/24/23 03/26/24 Fluticasone Propion/Salmeterol 1 puff INHALATION RT-BID 11/08/23 03/26/24 [Wixela 250-50 Inhub] Losartan [Cozaar] 50 mg PO BID 11/08/23 03/26/24 Pantoprazole [Protonix] 40 mg PO AC-BRKFST 11/08/23 03/26/24 Cholecalciferol (Vitamin D3) 50 mcg PO DAILY 03/26/24 03/26/24 [Vitamin D3 (50 Mcg = 2000 Iu)] Empagliflozin [Jardiance] 10 mg PO DAILY 03/26/24 03/26/24 Loratadine [Claritin] 10 mg PO DAILY 03/26/24 03/26/24 Allergies Allergy/AdvReac Type Severity Reaction Status Date / Time ammonia Allergy Dyspnea & Verified 05/18/24 12:42 Passed Out bee venom protein (honey bee) Allergy Anaphylaxis Verified 05/18/24 12:42 exenatide [From Byetta] Allergy Unknown Verified 05/18/24 12:42 feathers Allergy Anaphylaxis Verified 05/18/24 12:42 meperidine [From Demerol] Allergy Hives, Verified 05/18/24 12:42 Rash, Hypotension meperidine HCl [From Demerol] Allergy Anaphylaxis Verified 05/18/24 12:42 mint Allergy Anaphylaxis Verified 05/18/24 12:42 mold Allergy Anaphylaxis Verified 05/18/24 12:42 nifedipine [From Procardia] Allergy Unknown Verified 05/18/24 12:42 venom-honey bee Allergy Anaphylaxis Verified 05/18/24 12:42 [bee venom (honey bee)] wool Allergy Anaphylaxis Verified 05/18/24 12:42 amlodipine AdvReac Headache Verified 05/18/24 12:42 atenolol AdvReac Dyspnea, Verified 05/18/24 12:42 Migraine barium sulfate AdvReac rectal Verified 05/18/24 12:42 bleeding cephalexin [From Keflex] AdvReac Dyspnea Verified 05/18/24 12:42 diphenhydramine AdvReac Hypertensio Verified 05/18/24 12:42 n diphtheria,pertussis AdvReac Dyspnea & Verified 05/18/24 12:42 (acellular),te Heart [From Boostrix Tdap] Palpitations & Nausea dulaglutide [From Trulicity] AdvReac Dyspnea Verified 05/18/24 12:42 fexofenadine [From Elena] AdvReac Migraine Verified 05/18/24 12:42 fexofenadine HCl AdvReac Muscle Pain Verified 05/18/24 12:42 [From Elena] fluoxetine AdvReac "Feeling Verified 05/18/24 12:42 Irritable" fluvastatin AdvReac Muscle Pain Verified 05/18/24 12:42 guaifenesin AdvReac Dyspnea Verified 05/18/24 12:42 hydrochlorothiazide AdvReac Tachycardia Verified 05/18/24 12:42 influenza virus vaccine, AdvReac Dyspnea & Verified 05/18/24 12:42 specific Heart Palpitations & Nausea isosorbide [From Imdur] AdvReac Migraine Verified 05/18/24 12:42 lisinopril AdvReac Fatigue, Verified 05/18/24 12:42 Cough modafinil AdvReac Headache Verified 05/18/24 12:42 nitroglycerin AdvReac Dizziness Verified 05/18/24 12:42 ondansetron [From Zofran] AdvReac Nausea Verified 05/18/24 12:42 paroxetine [From Paxil] AdvReac "Depression Verified 05/18/24 12:42 " paroxetine HCl [From Paxil] AdvReac "Depressed" Verified 05/18/24 12:42 pneumococcal vaccine AdvReac Dyspnea & Verified 05/18/24 12:42 Heart Palpitations & Nausea rimegepant [From Nurtec ODT] AdvReac Nausea & Verified 05/18/24 12:42 Vomiting sertraline HCl [From Zoloft] AdvReac Fatigue Verified 05/18/24 12:42 simvastatin [From Zocor] AdvReac Muscle/Joint Verified 05/18/24 12:42 Pain spironolactone AdvReac Nausea & Verified 05/18/24 12:42 Vomiting Wodayox-GFM-XaN Reductase AdvReac Muscle/Joint Verified 05/18/24 12:42 Inhibitor Pain [Ggmuwzh-Lkc-Xgz Reductase Inhibitor] sumatriptan AdvReac Palpitation Verified 05/18/24 12:42 s venlafaxine [From Effexor] AdvReac Tachycardia Verified 05/18/24 12:42 zolpidem [From Ambien] AdvReac Dyspnea, Verified 05/18/24 12:42 Migraine zolpidem tartrate AdvReac Dyspnea, Verified 05/18/24 12:42 [From Ambien] Migraine zoster vaccine live AdvReac Dyspnea & Verified 05/18/24 12:42 Heart Palpitations & Nausea hay AdvReac Dyspnea Uncoded 03/26/24 17:14 lysol AdvReac Dyspnea Uncoded 03/26/24 17:14 Review of Systems ROS Statement: Those systems with pertinent positive or pertinent negative responses have been documented in the HPI. ROS Other: All systems not noted in ROS Statement are negative. Past Medical History Past Medical History: Asthma, Coronary Artery Disease (CAD), Cancer, Heart Failure, COPD, CVA/TIA, Diabetes Mellitus, GERD/Reflux, Hearing Disorder / Deafness, Hyperlipidemia, Hypertension, Myocardial Infarction (CO), Osteoarthritis (OA), Pneumonia, Seizure Disorder, Sleep Apnea/CPAP/BIPAP, Thyroid Disorder Additional Past Medical History / Comment(s): additional hx: right bundle branch block,barretts esophagus, migraines, deanna hearing aids, 7 lung nodules, fatty liver, pulmonary hypertension, heart murmur,obesity, IBS, RLS, arthritis, ADHD, DJD, anemia, lactose intolerance; last seizure 24 years ago, kidney stones x2, covid 07/08; CHF; TIAx3 in 2022; two heart attacks 2011 and 2018, bowel Ca 2019 Last Myocardial Infarction Date:: 08/01/2018 History of Any Multi-Drug Resistant Organisms: MRSA Date of last positivie culture/infection: November 2020 MDRO Source:: Abdomen Past Surgical History: Bowel Resection, Cholecystectomy, Heart Catheterization With Stent, Hysterectomy Additional Past Surgical History / Comment(s): breast biopsy,esophageal surgery - 2002, Bowel resection with Colostomy Apr 2020, colostomy reversed october 2020, cardiac stentx2 04/01/23 Past Anesthesia/Blood Transfusion Reactions: Postoperative Nausea & Vomiting (PONV) Additional Past Anesthesia/Blood Transfusion Reaction / Comment(s): gets nauseous at times; patient has had blood transfusions without no reactions Date of Last Stent Placement:: 04/01/2023 Past Psychological History: ADD/ADHD, Anxiety, Depression Smoking Status: Never smoker Past Alcohol Use History: None Reported Past Drug Use History: None Reported - Past Family History Mother History Unknown: Yes Family Medical History: Congestive Heart Failure (CHF), Myocardial Infarction (CO) Additional Family Medical History / Comment(s): 77 Father History Unknown: Yes Family Medical History: COPD, Myocardial Infarction (CO) Additional Family Medical History / Comment(s): at 56 Sister(s) History Unknown: Yes Family Medical History: Myocardial Infarction (CO) Additional Family Medical History / Comment(s): at 56 Brother(s) Family Medical History: Cancer Additional Family Medical History / Comment(s): colon cancer General Exam Limitations: no limitations General appearance: alert, in no apparent distress Head exam: Present: atraumatic, normocephalic, normal inspection Eye exam: Present: normal appearance, PERRL, EOMI. Absent: scleral icterus, conjunctival injection, periorbital swelling ENT exam: Present: normal exam, mucous membranes moist Neck exam: Present: normal inspection. Absent: tenderness, meningismus, lymphadenopathy Respiratory exam: Present: normal lung sounds bilaterally. Absent: respiratory distress, wheezes, rales, rhonchi, stridor Cardiovascular Exam: Present: regular rate, normal rhythm, normal heart sounds. Absent: systolic murmur, diastolic murmur, rubs, gallop, clicks GI/Abdominal exam: Present: soft, normal bowel sounds. Absent: distended, tenderness, guarding, rebound, rigid Neurological exam: Present: alert, oriented X3 Psychiatric exam: Present: normal affect, normal mood Skin exam: Present: warm, dry, intact, normal color. Absent: rash Course Vital Signs 05/18/24 05/18/24 12:40 14:08 Temperature 98.2 F Pulse Rate 70 71 Respiratory 16 20 Rate Blood Pressure 152/101 O2 Sat by Pulse 95 96 Oximetry Medical Decision Making - Medical Decision Making Was pt. sent in by a medical professional or institution (, PA, WEIGHT AND BALANCE CONTROL AGENT, urgent care, hospital, or prison...) When possible be specific @ -[No] Did you speak to anyone other than the patient for history (EMS, parent, family, police, friend...)? What history was obtained from this source @ -[No] Did you review nursing and triage notes (agree or disagree)? Why? @ -[I reviewed and agree with nursing and triage notes] Were old charts reviewed (outside hosp., previous admission, EMS record, old EKG, old radiological studies, urgent care reports/EKG's, prison records)? Report findings @ -[No old charts were reviewed] Differential Diagnosis (chest pain, altered mental status, abdominal pain women, abdominal pain men, vaginal bleeding, weakness, fever, dyspnea, syncope, headache, dizziness, GI bleed, back pain, seizure, CVA, palpatations, mental health, musculoskeletal)? @ -[Differential Chest Pain: Stable Angina, Unstable Angina, STEMI, NSTEMI Aortic Dissection, Pneumothorax, Musculoskeletal, Esophageal Spasm GERD, Cholecystitis, Pancreatitis, Zoster, this is not meant to be an all-inclusive list. ] EKG interpreted by me (3pts min.). @ -[EKG at 1258 shows sinus rhythm rate 71, NC 186, QRS 131, QTQTc [id number]] X-rays interpreted by me (1pt min.). @ -[None done] CT interpreted by me (1pt min.). @ -[None done] U/S interpreted by me (1pt. min.). @ -[None done] What testing was considered but not performed or refused? (CT, X-rays, U/S, labs)? Why? @ -[None] What meds were considered but not given or refused? Why? @ -[None] Did you discuss the management of the patient with other professionals (professionals i.e. , PA, WEIGHT AND BALANCE CONTROL AGENT, lab, RT, psych nurse, social media developer, coater smoking pipe, teacher, probation officer, comp field case manager)? Give summary @ -[No] Was smoking cessation discussed for >3mins.? @ -[No] Was critical care preformed (if so, how long)? @ -[No] Were there social determinants of health that impacted care today? How? (Homelessness, low income, unemployed, alcoholism, drug addiction, transportation, low edu. Level, literacy, decrease access to med. care, shelter, rehab)? @ -[No] Was there de-escalation of care discussed even if they declined (Discuss DNR or withdrawal of care, Hospice)? DNR status @ -[No] What co-morbidities impacted this encounter? (DM, HTN, Smoking, COPD, CAD, Cancer, CVA, ARF, Chemo, Hep., AIDS, mental health diagnosis, sleep apnea, morbid obesity)? @ -[None] Was patient admitted / discharged? Hospital course, mention meds given and route, prescriptions, significant lab abnormalities, going to OR and other pertinent info. @ -[hospital course] Undiagnosed new problem with uncertain prognosis? @ -[No] Drug Therapy requiring intensive monitoring for toxicity (Heparin, Nitro, Insulin, Cardizem)? @ -[No] Were any procedures done? @ -[No] Diagnosis/symptom? @ -[default] Acute, or Chronic, or Acute on Chronic? @ -[default] Uncomplicated (without systemic symptoms) or Complicated (systemic symptoms)? @ -[default] Side effects of treatment? @ -[No] Exacerbation, Progression, or Severe Exacerbation? @ -[No] Poses a threat to life or bodily function? How? (Chest pain, USA, CO, pneumonia, PE, COPD, DKA, ARF, appy, cholecystitis, CVA, Diverticulitis, Homicidal, Suicid al, threat to staff... and all critical care pts) @ -[No] - Lab Data Result diagrams: 05/18/24 13:37 05/18/24 13:37 Lab Results 05/18/24 05/18/24 05/18/24 Range/Units 13:37 13:37 13:37 WBC 6.7 (3.8-10.6) k/uL RBC 5.24 (3.80-5.40) m/uL Hgb 13.4 (11.4-16.0) gm/dL Hct 40.5 (34.0-46.0) % MCV 77.3 L (80.0-100.0) fL MCH 25.6 (25.0-35.0) pg MCHC 33.1 (31.0-37.0) g/dL RDW 15.8 H (11.5-15.5) % Plt Count 215 (150-450) k/uL MPV 7.1 Neutrophils % 70 % Lymphocytes % 23 % Monocytes % 4 % Eosinophils % 2 % Basophils % 0 % Neutrophils # 4.6 (1.3-7.7) k/uL Lymphocytes # 1.5 (1.0-4.8) k/uL Monocytes # 0.3 (0-1.0) k/uL Eosinophils # 0.1 (0-0.7) k/uL Basophils # 0.0 (0-0.2) k/uL Microcytosis Slight PT 10.5 (10.0-12.5) sec INR 0.9 (<1.2) APTT 22.7 (22.0-30.0) sec Sodium 135 L (137-145) mmol/L Potassium 4.6 (3.5-5.1) mmol/L Chloride 100 (98-107) mmol/L Carbon Dioxide 24 (22-30) mmol/L Anion Gap 11 mmol/L BUN 22 H (7-17) mg/dL Creatinine 0.79 (0.52-1.04) mg/dL Est GFR (CKD-EPI)AfAm >90 (>60 ml/min/1.73 sqM) Est GFR (CKD-EPI)NonAf 80 (>60 ml/min/1.73 sqM) Glucose 192 H (74-99) mg/dL Calcium 9.6 (8.4-10.2) mg/dL Magnesium 1.9 (1.6-2.3) mg/dL Total Bilirubin 0.5 (0.2-1.3) mg/dL AST 23 (14-36) U/L ALT 25 (4-34) U/L Alkaline Phosphatase 132 H (38-126) U/L Troponin I (0.000-0.034) ng/mL Total Protein 6.9 (6.3-8.2) g/dL Albumin 4.2 (3.5-5.0) g/dL 05/18/24 05/18/24 Range/Units 13:37 16:55 WBC (3.8-10.6) k/uL RBC (3.80-5.40) m/uL Hgb (11.4-16.0) gm/dL Hct (34.0-46.0) % MCV (80.0-100.0) fL MCH (25.0-35.0) pg MCHC (31.0-37.0) g/dL RDW (11.5-15.5) % Plt Count (150-450) k/uL MPV Neutrophils % % Lymphocytes % % Monocytes % % Eosinophils % % Basophils % % Neutrophils # (1.3-7.7) k/uL Lymphocytes # (1.0-4.8) k/uL Monocytes # (0-1.0) k/uL Eosinophils # (0-0.7) k/uL Basophils # (0-0.2) k/uL Microcytosis PT (10.0-12.5) sec INR (<1.2) APTT (22.0-30.0) sec Sodium (137-145) mmol/L Potassium (3.5-5.1) mmol/L Chloride (98-107) mmol/L Carbon Dioxide (22-30) mmol/L Anion Gap mmol/L BUN (7-17) mg/dL Creatinine (0.52-1.04) mg/dL Est GFR (CKD-EPI)AfAm (>60 ml/min/1.73 sqM) Est GFR (CKD-EPI)NonAf (>60 ml/min/1.73 sqM) Glucose (74-99) mg/dL Calcium (8.4-10.2) mg/dL Magnesium (1.6-2.3) mg/dL Total Bilirubin (0.2-1.3) mg/dL AST (14-36) U/L ALT (4-34) U/L Alkaline Phosphatase (38-126) U/L Troponin I <0.012 <0.012 (0.000-0.034) ng/mL Total Protein (6.3-8.2) g/dL Albumin (3.5-5.0) g/dL Disposition Clinical Impression: Chest pain Disposition: HOME SELF-CARE Condition: Stable Instructions (If sedation given, give patient instructions): Chest Pain (ED) Additional Instructions: Please follow up with your primary care provider. Return to the emergency department for new or worsening symptoms. Is patient prescribed a controlled substance at d/c from ED?: No Referrals: Reji Cristina DO [Doctor of Osteopathic Medicine] - 1-2 days
--- NOTE | 2024-05-18 14:04 | XR ---
EXAMINATION TYPE: XR chest 2V DATE OF EXAM: 05/18/2024 1:54 PM COMPARISON: Chest radiographs from 03/26/2024 TECHNIQUE: XR chest 2V Frontal and lateral views of the chest. CLINICAL INDICATION:Female, 63 years old with history of Chest Pain; FINDINGS: Lungs/Pleura: There is flattening of the diaphragm with increased lucency of the lungs. No evidence o f pneumothorax, pleural effusion or focal consolidation. Pulmonary vascularity: Unremarkable. Heart/mediastinum: Cardiomediastinal silhouette is enlarged and stable. Musculoskeletal: Multiple level degenerative disc disease changes seen throughout the spine. Surgical anchors within the right humeral head. IMPRESSION: 1. No acute cardiopulmonary disease process. 2. COPD changes. [facility], , 05/18/2024 2:02 PM
[2024-05-18 14:05] LABS: ALT 25 U/L (4-34); AST 23 U/L (14-36); African American GFR (CKD) >90 (>60 ml/min/1.73 sqM); Albumin 4.2 g/dL (3.5-5.0); Alkaline Phosphatase 132 U/L (38-126); Anion Gap 11 mmol/L; Blood Urea Nitrogen 22 mg/dL (7-17); Calcium 9.6 mg/dL (8.4-10.2); Carbon Dioxide 24 mmol/L (22-30); Chloride 100 mmol/L (98-107); Glucose 192 mg/dL (74-99); Magnesium 1.9 mg/dL (1.6-2.3); Non-African American GFR(CKD) 80 (>60 ml/min/1.73 sqM); Potassium 4.6 mmol/L (3.5-5.1); Sodium 135 mmol/L (137-145); Total Bilirubin 0.5 mg/dL (0.2-1.3); Total Protein 6.9 g/dL (6.3-8.2)
[2024-05-18 14:06] LABS: Basophils % (A) 0 %; Eosinophils # (A) 0.1 k/uL (0-0.7); Eosinophils % (A) 2 %; HCT 40.5 % (34.0-46.0); HGB 13.4 gm/dL (11.4-16.0); Lymphocytes # (A) 1.5 k/uL (1.0-4.8); Lymphocytes % (A) 23 %; MCH 25.6 pg (25.0-35.0); MCHC 33.1 g/dL (31.0-37.0); MCV 77.3 fL (80.0-100.0); Mean Platelet Volume 7.1; Microcytosis Slight; Monocytes # (A) 0.3 k/uL (0-1.0); Monocytes % (A) 4 %; Neutrophils # (A) 4.6 k/uL (1.3-7.7); Neutrophils % (A) 70 %; Platelet Count 215 k/uL (150-450); RBC 5.24 m/uL (3.80-5.40); RDW 15.8 % (11.5-15.5); WBC 6.7 k/uL (3.8-10.6)
[2024-05-18 14:17] LABS: INR 0.9 (<1.2); Partial Thromboplastin Time 22.7 sec (22.0-30.0); Prothrombin Time 10.5 sec (10.0-12.5)
[2024-05-18 17:58] VITALS: BP 122/72; PULSE 67; RESP 18
== END 2024-05-18 17:58 | disposition home or self-care (01) ==
LOC: EC 12:24
DX: R07.9 Chest pain, unspecified (principal); Z91.030 Bee allergy status; Z77.120 Contact with and (suspected) exposure to mold (toxic); Z91.018 Allergy to other foods; Z88.1 Allergy status to other antibiotic agents; Z88.7 Allergy status to serum and vaccine; Z88.8 Allergy status to other drugs, medicaments and biological substances; Z91.09 Other allergy status, other than to drugs and biological substances; Z91.048 Other nonmedicinal substance allergy status
CPT/HCPCS: 36415; 71046; 80053; 83735; 84484; 85025; 85610; 85730; 93005; 99285; 99291

== ENCOUNTER 2024-09-02 14:11 | Emergency (ER) | payer OTHER ==
[2024-09-02 14:18] VITALS: TEMP 97.8
--- NOTE | 2024-09-02 14:50 | ED ---
General Adult HPI - General Source: patient, RN notes reviewed Mode of arrival: ambulatory Limitations: no limitations <Brittany Rowe - Last Filed: 09/02/24 14:49> <Ganesh Jacobs - Last Filed: 09/02/24 16:59> - General Chief complaint: Urogenital Stated complaint: Bladder issue Time Seen by Provider: 09/02/24 14:30 - History of Present Illness Initial comments: Quick [id number] female presenting to the emergency department with complaints of worsening lower abdominal pain over the past 3 years. Patient states that she has a prolapsed bladder that has been monitored however over the past few days his pain is worsened. Admits history of stress incontinence. Denies previous urological surgeries. (Brittany Rowe) - Related Data Home Medications Medication Instructions Recorded Confirmed Insulin Glargine,Hum.rec.anlog 30 unit SQ HS 04/19/20 03/26/24 [Lantus Solostar Pen] Sennosides/Docusate Sodium [Senna 1 tab PO BID PRN 04/19/20 03/26/24 Plus 8.6-50 mg Tablet] dilTIAZem HCL [Cartia Xt] 300 mg PO DAILY 07/14/20 03/26/24 Insulin Aspart [NovoLOG Flexpen] 20 units SQ AC-TID 07/14/21 03/26/24 rOPINIRole HCL [Requip] 4 mg PO HS 07/30/21 03/26/24 Albuterol Inhaler [Ventolin Hfa 2 puff INHALATION RT-QID PRN 10/30/21 03/26/24 Inhaler] Ferrous Sulfate [Iron (65 MG 325 mg PO MOWEFR 03/13/22 03/26/24 Elemental)] Aspirin EC [Ecotrin Low Dose] 81 mg PO DAILY 06/24/23 03/26/24 Atorvastatin [Lipitor] 40 mg PO HS 06/24/23 03/26/24 Clopidogrel [Plavix] 75 mg PO DAILY 06/24/23 03/26/24 Oxybutynin Chloride [oxyBUTYnin 10 mg PO HS 06/24/23 03/26/24 chloride ER] Semaglutide [Ozempic] 1 mg SQ MO 06/24/23 03/26/24 metFORMIN HCL ER [Glucophage XR] 1,000 mg PO BID 06/24/23 03/26/24 Fluticasone Propion/Salmeterol 1 puff INHALATION RT-BID 11/08/23 03/26/24 [Wixela 250-50 Inhub] Losartan [Cozaar] 50 mg PO BID 11/08/23 03/26/24 Pantoprazole [Protonix] 40 mg PO AC-BRKFST 11/08/23 03/26/24 Cholecalciferol (Vitamin D3) 50 mcg PO DAILY 03/26/24 03/26/24 [Vitamin D3 (50 Mcg = 2000 Iu)] Empagliflozin [Jardiance] 10 mg PO DAILY 03/26/24 03/26/24 Loratadine [Claritin] 10 mg PO DAILY 03/26/24 03/26/24 Allergies Allergy/AdvReac Type Severity Reaction Status Date / Time ammonia Allergy Dyspnea & Verified 09/02/24 14:18 Passed Out bee venom protein (honey bee) Allergy Anaphylaxis Verified 09/02/24 14:18 exenatide [From Byetta] Allergy Unknown Verified 09/02/24 14:18 feathers Allergy Anaphylaxis Verified 09/02/24 14:18 meperidine [From Demerol] Allergy Hives, Verified 09/02/24 14:18 Rash, Hypotension meperidine HCl [From Demerol] Allergy Anaphylaxis Verified 09/02/24 14:18 mint Allergy Anaphylaxis Verified 09/02/24 14:18 mold Allergy Anaphylaxis Verified 09/02/24 14:18 nifedipine [From Procardia] Allergy Unknown Verified 09/02/24 14:18 venom-honey bee Allergy Anaphylaxis Verified 09/02/24 14:18 [bee venom (honey bee)] wool Allergy Anaphylaxis Verified 09/02/24 14:18 amlodipine AdvReac Headache Verified 09/02/24 14:18 atenolol AdvReac Dyspnea, Verified 09/02/24 14:18 Migraine barium sulfate AdvReac rectal Verified 09/02/24 14:18 bleeding cephalexin [From Keflex] AdvReac Dyspnea Verified 09/02/24 14:18 diphenhydramine AdvReac Hypertensio Verified 09/02/24 14:18 n diphtheria,pertussis AdvReac Dyspnea & Verified 09/02/24 14:18 (acellular),te Heart [From Boostrix Tdap] Palpitations & Nausea dulaglutide [From Trulicity] AdvReac Dyspnea Verified 09/02/24 14:18 fexofenadine [From Elena] AdvReac Migraine Verified 09/02/24 14:18 fexofenadine HCl AdvReac Muscle Pain Verified 09/02/24 14:18 [From Elena] fluoxetine AdvReac "Feeling Verified 09/02/24 14:18 Irritable" fluvastatin AdvReac Muscle Pain Verified 09/02/24 14:18 guaifenesin AdvReac Dyspnea Verified 09/02/24 14:18 hydrochlorothiazide AdvReac Tachycardia Verified 09/02/24 14:18 influenza virus vaccine, AdvReac Dyspnea & Verified 09/02/24 14:18 specific Heart Palpitations & Nausea isosorbide [From Imdur] AdvReac Migraine Verified 09/02/24 14:18 lisinopril AdvReac Fatigue, Verified 09/02/24 14:18 Cough modafinil AdvReac Headache Verified 09/02/24 14:18 nitroglycerin AdvReac Dizziness Verified 09/02/24 14:18 ondansetron [From Zofran] AdvReac Nausea Verified 09/02/24 14:18 paroxetine [From Paxil] AdvReac "Depression Verified 09/02/24 14:18 " paroxetine HCl [From Paxil] AdvReac "Depressed" Verified 09/02/24 14:18 pneumococcal vaccine AdvReac Dyspnea & Verified 09/02/24 14:18 Heart Palpitations & Nausea rimegepant [From Nurtec ODT] AdvReac Nausea & Verified 09/02/24 14:18 Vomiting sertraline HCl [From Zoloft] AdvReac Fatigue Verified 09/02/24 14:18 simvastatin [From Zocor] AdvReac Muscle/Joint Verified 09/02/24 14:18 Pain spironolactone AdvReac Nausea & Verified 09/02/24 14:18 Vomiting Acsivav-FQN-VrU Reductase AdvReac Muscle/Joint Verified 09/02/24 14:18 Inhibitor Pain [Fcqkqir-Cck-Apt Reductase Inhibitor] sumatriptan AdvReac Palpitation Verified 09/02/24 14:18 s venlafaxine [From Effexor] AdvReac Tachycardia Verified 09/02/24 14:18 zolpidem [From Ambien] AdvReac Dyspnea, Verified 09/02/24 14:18 Migraine zolpidem tartrate AdvReac Dyspnea, Verified 09/02/24 14:18 [From Ambien] Migraine zoster vaccine live AdvReac Dyspnea & Verified 09/02/24 14:18 Heart Palpitations & Nausea hay AdvReac Dyspnea Uncoded 09/02/24 14:18 lysol AdvReac Dyspnea Uncoded 09/02/24 14:18 Review of Systems ROS Other: All systems not noted in ROS Statement are negative. <Brittany Rowe - Last Filed: 09/02/24 14:49> ROS Other: All systems not noted in ROS Statement are negative. <Ganesh Jacobs - Last Filed: 09/02/24 16:59> ROS Statement: Those systems with pertinent positive or pertinent negative responses have been documented in the HPI. Past Medical History Past Medical History: Asthma, Coronary Artery Disease (CAD), Cancer, Heart Failure, COPD, CVA/TIA, Diabetes Mellitus, GERD/Reflux, Hearing Disorder / Deafness, Hyperlipidemia, Hypertension, Myocardial Infarction ([place]), Osteo arthritis (OA), Pneumonia, Seizure Disorder, Sleep Apnea/CPAP/BIPAP, Thyroid Disorder Additional Past Medical History / Comment(s): additional hx: right bundle branch block,barretts esophagus, migraines, deanna hearing aids, 7 lung nodules, fatty liver, pulmonary hypertension, heart murmur,obesity, IBS, RLS, arthritis, ADHD, DJD, anemia, lactose intolerance; last seizure 24 years ago, kidney stones x2, covid /; CHF; TIAx3 in 2022; two heart attacks 2011 and 2018, bowel Ca 2018 Last Myocardial Infarction Date:: 08/01/2018 History of Any Multi-Drug Resistant Organisms: MRSA Date of last positivie culture/infection: November 2020 MDRO Source:: Abdomen Past Surgical History: Bowel Resection, Cholecystectomy, Heart Catheterization With Stent, Hysterectomy Additional Past Surgical History / Comment(s): breast biopsy,esophageal surgery - 2002, Bowel resection with Colostomy Apr 2020, colostomy reversed october 2020, cardiac stentx2 04/01/23 Past Anesthesia/Blood Transfusion Reactions: Postoperative Nausea & Vomiting (PONV) Additional Past Anesthesia/Blood Transfusion Reaction / Comment(s): gets nauseous at times; patient has had blood transfusions without no reactions Date of Last Stent Placement:: 04/01/2023 Past Psychological History: ADD/ADHD, Anxiety, Depression Smoking Status: Never smoker Past Alcohol Use History: None Reported Past Drug Use History: None Reported - Past Family History Mother History Unknown: Yes Family Medical History: Congestive Heart Failure (CHF), Myocardial Infarction ([place]) Additional Family Medical History / Comment(s): 77 Father History Unknown: Yes Family Medical History: COPD, Myocardial Infarction ([place]) Additional Family Medical History / Comment(s): at 56 Sister(s) History Unknown: Yes Family Medical History: Myocardial Infarction ([place]) Additional Family Medical History / Comment(s): at 56 Brother(s) Family Medical History: Cancer Additional Family Medical History / Comment(s): colon cancer <Brittany Rowe - Last Filed: 09/02/24 14:49> General Exam Limitations: no limitations <Brittany Rowe - Last Filed: 09/02/24 14:49> General appearance: alert, in no apparent distress Head exam: Present: atraumatic, normocephalic Eye exam: Present: normal appearance, PERRL ENT exam: Present: normal exam Neck exam: Present: normal inspection. Absent: tenderness, meningismus Respiratory exam: Present: normal lung sounds bilaterally. Absent: respiratory distress, wheezes Cardiovascular Exam: Present: regular rate, normal rhythm GI/Abdominal exam: Present: soft, hernia (Left lateral hernia, soft and reducible, nontender). Absent: distended, tenderness, guarding, rebound <Ganesh Jacobs - Last Filed: 09/02/24 16:59> - General Exam Comments Initial Comments: Visual Physical Exam Vital signs reviewed General: Well-appearing, nontoxic, no acute distress. Head: Normocephalic, atraumatic Eyes: PERRLA, EOMI ENT: Airway patent Chest: Nonlabored breathing Skin: No visual rash, normal skin tone Neuro: Alert and oriented 3 Musculoskeletal: No gross abnormalities (Brittany Rowe) Course Vital Signs 09/02/24 09/02/24 14:15 16:13 Temperature 97.8 F 97.8 F Pulse Rate 84 75 Respiratory 17 18 Rate Blood Pressure 142/76 136/61 O2 Sat by Pulse 96 94 L Oximetry Medical Decision Making <Brittany Rowe - Last Filed: 09/02/24 14:49> - Lab Data Result diagrams: 09/02/24 15:09 09/02/24 15:09 <Ganesh Jacobs N - Last Filed: 09/02/24 16:59> - Medical Decision Making I completed the quick note portion of this chart signed Brittany Rowe PA-C (Brittany Rowe) Was pt. sent in by a medical professional or institution ([facility], [facility], urgent care, hospital, or retirement...) When possible be specific @ -No Did you speak to anyone other than the patient for history (EMS, parent, family, police, friend...)? What history was obtained from this source @ -No Did you review nursing and triage notes (agree or disagree)? Why? @ -I reviewed and agree with nursing and triage notes Were old charts reviewed (outside hosp., previous admission, EMS record, old EKG, old radiological studies, urgent care reports/EKG's, retirement records)? Report findings @ -No old charts were reviewed Differential Abdominal Pain Women: Appendicitis, Cholecystitis, diverticulosis, ischemic bowel, pancreatitis, hepatitis, UTI, gastroenteritis, AAA, incarcerated hernia, bowel obstruction, constipation, inflammatory bowel, hepatitis, peptic ulcer disease, splenic infarction, perforated viscus, vulvitis, ovarian torsion, PID, kidney stone, placenta abruption, this is not meant to be an all-inclusive list EKG interpreted by me (3pts min.). @ -As above X-rays interpreted by me (1pt min.). @ -None done CT interpreted by me (1pt min.). @ -CT negative for acute findings, there is concern for anterior abdominal wall hernia this is soft and reducible on exam. U/S interpreted by me (1pt. min.). @ -None done What testing was considered but not performed or refused? (CT, X-rays, U/S, labs)? Why? @ -None What meds were considered but not given or refused? Why? @ -None Did you discuss the management of the patient with other professionals (pr ofessionals i.e. [facility], [facility], lab, RT, psych nurse, web content & social media manager, edge beader, teacher, life science technical officer, lead case manager)? Give summary @ -No Was smoking cessation discussed for >3mins.? @ -No Was critical care preformed (if so, how long)? @ -No Were there social determinants of health that impacted care today? How? (Homelessness, low income, unemployed, alcoholism, drug addiction, transportation, low edu. Level, literacy, decrease access to med. care, usp, rehab)? @ -No Was there de-escalation of care discussed even if they declined (Discuss DNR or withdrawal of care, Hospice)? DNR status @ -No What co-morbidities impacted this encounter? (DM, HTN, Smoking, COPD, CAD, Cancer, CVA, ARF, Chemo, Hep., AIDS, mental health diagnosis, sleep apnea, morbid obesity)? @ -None Was patient admitted / discharged? Hospital course, mention meds given and route, prescriptions, significant lab abnormalities, going to OR and other pertinent info. @63-year-old female presenting with chief complaint of bladder prolapse which has been an ongoing issue for some time, second complaint is of yeast infection. Patient does have a current yeast infection, does not have visible signs of external prolapse. She has a reproducible ventral hernia on abdominal exam. Patient should follow-up with her primary care provider and given gynecology follow-up. Undiagnosed new problem with uncertain prognosis? @ -No Drug Therapy requiring intensive monitoring for toxicity (Heparin, Nitro, Insulin, Cardizem)? @ -No Were any procedures done? @ -No Diagnosis/symptom? @Yeast infection, bladder prolapse Acute, or Chronic, or Acute on Chronic? @ -Default Uncomplicated (without systemic symptoms) or Complicated (systemic symptoms)? @ -Default Side effects of treatment? @ -No Exacerbation, Progression, or Severe Exacerbation? @ -No Poses a threat to life or bodily function? How? (Chest pain, [place], [place], pneumonia, PE, COPD, DKA, ARF, appy, cholecystitis, CVA, Diverticulitis, Homicidal, Suicidal, threat to staff... and all critical care pts) @ -No (Ganesh Jacobs) - Lab Data Lab Results 09/02/24 09/02/24 09/02/24 Range/Units 15:09 15:09 15:35 WBC 9.42 (4.50-10.00) 10*3/uL RBC 5.42 H (4.10-5.20) 10*6/uL Hgb 13.8 (12.0-15.0) g/dL Hct 42.5 (37.2-46.3) % MCV 78.4 L (80.0-97.0) fL MCH 25.5 L (27.0-32.0) pg MCHC 32.5 (32.0-37.0) g/dL Plt Count 300 (140-440) 10*3/uL MPV 9.6 (9.5-12.2) fL Immature Gran % (Auto) 0.4 % Neutrophils % 74.0 % Lymphocytes % 19.3 % Monocytes % 3.8 % Eosinophils % 1.9 % Basophils % 0.6 % Immature Gran # 0.04 (0.00-0.04) 10*3/uL Neutrophils # 6.96 (1.80-7.70) 10*3/uL Lymphocytes # 1.82 (0.90-5.00) 10*3/uL Monocytes # 0.36 (0.20-1.00) 10*3/uL Eosinophils # 0.18 (0.04-0.35) 10*3/uL Basophils # 0.06 (0.00-0.10) 10*3/uL Sodium 138 (137-145) mmol/L Potassium 4.8 (3.5-5.1) mmol/L Chloride 102 (98-107) mmol/L Carbon Dioxide 20 L (22-30) mmol/L Anion Gap 16 mmol/L BUN 24 H (7-17) mg/dL Creatinine 0.88 (0.52-1.04) mg/dL Est GFR (CKD-EPI)AfAm 80 (>60 ml/min/1.73 sqM) Est GFR (CKD-EPI)NonAf 70 (>60 ml/min/1.73 sqM) Glucose 240 H (74-99) mg/dL Calcium 9.5 (8.4-10.2) mg/dL Total Bilirubin 0.6 (0.2-1.3) mg/dL AST 27 (14-36) U/L ALT 30 (4-34) U/L Alkaline Phosphatase 117 (38-126) U/L Total Protein 7.1 (6.3-8.2) g/dL Albumin 4.4 (3.5-5.0) g/dL Urine Color Colorless Urine Appearance Clear (Clear) Urine pH 5.0 (5.0-8.0) Ur Specific [place] 1.033 (1.001-1.035) Urine Protein Negative (Negative) Urine Glucose (UA) 4+ H (Negative) Urine Ketones Negative (Negative) Urine Blood Negative (Negative) Urine Nitrite Negative (Negative) Urine Bilirubin Negative (Negative) Urine Urobilinogen <2.0 (<2.0) mg/dL Ur Leukocyte Esterase Moderate H (Negative) Urine RBC 5 (0-5) /hpf Urine WBC 6 H (0-5) /hpf Ur Squamous Epith Cells 12 H (0-4) /hpf Urine Mucus Rare H (None) /hpf Disposition <Brittany Rowe - Last Filed: 09/02/24 14:49> Is patient prescribed a controlled substance at d/c from ED?: No Time of Disposition: 16:55 <Ganesh Jacobs - Last Filed: 09/02/24 16:59> Clinical Impression: Candidiasis of vagina, Bladder prolapse Disposition: HOME SELF-CARE Condition: Fair Instructions (If sedation given, give patient instructions): Yeast Infection (ED) Referrals: Nonstaff,Physician [Primary Care Provider] - 1-2 days Delroy Mendez MD [STAFF PHYSICIAN] - 1-2 days
[2024-09-02 15:15] LABS: Basophils # (A) 0.06 10*3/uL (0.00-0.10); Basophils % (A) 0.6 %; Eosinophils # (A) 0.18 10*3/uL (0.04-0.35); Eosinophils % (A) 1.9 %; HCT 42.5 % (37.2-46.3); HGB 13.8 g/dL (12.0-15.0); Lymphocytes # (A) 1.82 10*3/uL (0.90-5.00); Lymphocytes % (A) 19.3 %; MCH 25.5 pg (27.0-32.0); MCHC 32.5 g/dL (32.0-37.0); MCV 78.4 fL (80.0-97.0); Mean Platelet Volume 9.6 fL (9.5-12.2); Monocytes # (A) 0.36 10*3/uL (0.20-1.00); Monocytes % (A) 3.8 %; Neutrophils # (A) 6.96 10*3/uL (1.80-7.70); Platelet Count 300 10*3/uL (140-440); RBC 5.42 10*6/uL (4.10-5.20); RDW 17.2 % (11.5-14.5); WBC 9.42 10*3/uL (4.50-10.00)
[2024-09-02 15:25] LABS: ALT 30 U/L (4-34); AST 27 U/L (14-36); African American GFR (CKD) 80 (>60 ml/min/1.73 sqM); Albumin 4.4 g/dL (3.5-5.0); Alkaline Phosphatase 117 U/L (38-126); Anion Gap 16 mmol/L; Blood Urea Nitrogen 24 mg/dL (7-17); Calcium 9.5 mg/dL (8.4-10.2); Carbon Dioxide 20 mmol/L (22-30); Chloride 102 mmol/L (98-107); Glucose 240 mg/dL (74-99); Non-African American GFR(CKD) 70 (>60 ml/min/1.73 sqM); Potassium 4.8 mmol/L (3.5-5.1); Sodium 138 mmol/L (137-145); Total Bilirubin 0.6 mg/dL (0.2-1.3); Total Protein 7.1 g/dL (6.3-8.2)
[2024-09-02 16:03] LABS: Appearance,Urine Clear (Clear); Bilirubin,Urine Negative (Negative); Blood,Urine Negative (Negative); Color,Urine Colorless; Glucose,Urine (UA) 4+ (Negative); Ketones,Urine Negative (Negative); Leukocyte Esterase,Urine Moderate (Negative); Mucus,Urine Rare /hpf; Nitrite,Urine Negative (Negative); Protein,Urine Negative (Negative); RBC,Urine 5 /hpf (0-5); Specific Gravity,Urine 1.033 (1.001-1.035); Squamous Epithelial Cell,Urine 12 /hpf (0-4); Urobilinogen,Urine <2.0 mg/dL (<2.0); WBC,Urine 6 /hpf (0-5)
[2024-09-02 16:14] VITALS: RESP 18
--- NOTE | 2024-09-02 16:29 | CT ---
EXAMINATION TYPE: CT abdomen pelvis wo con DATE OF EXAM: 09/02/2024 3:57 PM COMPARISON: CT abdomen/pelvis 11/05/2020. CLINICAL INDICATION: Female, 63 years old with history of bladder prolapse, discomfort; Pt is coming in for prolapsed bladder, pt states it is more irritating and uncomfortable than usual. TECHNIQUE: Axial CT abdomen pelvis wo con;Sagittal and coronal reformats were created on a separate workstation. Oral contrast used: without Oral Contrast (none if empty) CT DLP: 1533.4 mGycm, Automated exposure control for dose reduction was used. FINDINGS: LOWER CHEST: Unremarkable ABDOMEN LIVER: Unremarkable GALLBLADDER AND BILE DUCTS: The gallbladder is surgically absent. PANCREAS: Unremarkable. SPLEEN: Unremarkable. ADRENAL GLANDS: Unremarkable. KIDNEYS AND URETERS: No evidence of hydronephrosis or renal calculus. The ureters are unremarkable. PELVIS BLADDER: No evidence for wall thickening or mass given limitations of exam. REPRODUCTIVE: The uterus is surgically absent. ABDOMEN & PELVIS STOMACH AND BOWEL: Moderate diffuse colonic stool burden. Left lateral anterior abdominal wall hernia containing portion of a small bowel loop. There is upstream small bowel dilatation measuring up to 5 .2 cm in diameter. No evidence of free air to suggest perforation. Stomach is unremarkable. PERITONEUM/RETROPERITONEUM: No evidence of pneumoperitoneum or free fluid. VASCULATURE: No evidence of aortic aneurysm. MUSCULOSKELETAL: No acute osseous abnormalities. Bilateral L5 pars defects with associated grade 1 an terolisthesis of L5 on S1. LYMPH NODES: No gross evidence for lymphadenopathy. SOFT TISSUE/ABDOMINAL WALL: Nonspecific subcutaneous stranding in the anterior abdominal wall, recomm end clinical correlation for cellulitis. IMPRESSION: Left lateral anterior abdominal wall hernia containing portion of a small bowel loop with focal regio n of upstream small bowel dilatation measuring 5.2 cm in diameter. Findings could reflect developing small bowel obstruction due to strangulated hernia. Recommend surgical consultation if clinically war ranted. [facility], , 09/02/2024 4:26 PM
[2024-09-02] MEDS: FLUCONAZOLE 150 MG TAB PO STA (17:22)
[2024-09-02 17:26] VITALS: BP 124/76; PULSE 78
== END 2024-09-02 17:26 | disposition home or self-care (01) ==
LOC: EC 14:11
DX: N81.10 Cystocele, unspecified (principal); B37.31 Acute candidiasis of vulva and vagina; Z88.5 Allergy status to narcotic agent; Z91.030 Bee allergy status; Z88.8 Allergy status to other drugs, medicaments and biological substances; Z88.1 Allergy status to other antibiotic agents; Z88.7 Allergy status to serum and vaccine; Z77.120 Contact with and (suspected) exposure to mold (toxic)
CPT/HCPCS: 36415; 74176; 80053; 81001; 85025; 99284

== ENCOUNTER 2024-10-23 07:30 | Emergency (ER) | payer OTHER ==
[2024-10-23 08:07] VITALS: TEMP 97.8
--- NOTE | 2024-10-23 08:10 | ED ---
Nausea/Vomiting/Diarrhea HPI - General Chief complaint: Nausea/Vomiting/Diarrhea Stated complaint: Diarrhea Time Seen by Provider: 10/23/24 07:34 Source: patient, RN notes reviewed Mode of arrival: EMS Limitations: no limitations - History of Present Illness Initial comments: 63-year-old female with extensive past abdominal surgical history presenting to the emergency department via EMS with concerns of persistent diarrhea over the past 3 months. She states that it has been worsening over the past few days. She denies associated abdominal pain, hematochezia, melena, urinary complaints, nausea, vomiting, fevers or chills. Patient states that she is scheduled to see the GI specialist on Wednesday. She states that she took a Imodium a few days ago with minimal relief in symptoms. She denies recent antibiotic use or recent travel. - Related Data Home Medications Medication Instructions Recorded Confirmed Insulin Glargine,Hum.rec.anlog 30 unit SQ HS 04/19/20 03/26/24 [Lantus Solostar Pen] Sennosides/Docusate Sodium [Senna 1 tab PO BID PRN 04/19/20 03/26/24 Plus 8.6-50 mg Tablet] dilTIAZem HCL [Cartia Xt] 300 mg PO DAILY 07/14/20 03/26/24 Insulin Aspart [NovoLOG Flexpen] 20 units SQ AC-TID 07/14/21 03/26/24 rOPINIRole HCL [Requip] 4 mg PO HS 07/30/21 03/26/24 Albuterol Inhaler [Ventolin Hfa 2 puff INHALATION RT-QID PRN 10/30/21 03/26/24 Inhaler] Ferrous Sulfate [Iron (65 MG 325 mg PO MOWEFR 03/13/22 03/26/24 Elemental)] Aspirin EC [Ecotrin Low Dose] 81 mg PO DAILY 06/24/23 03/26/24 Atorvastatin [Lipitor] 40 mg PO HS 06/24/23 03/26/24 Clopidogrel [Plavix] 75 mg PO DAILY 06/24/23 03/26/24 Oxybutynin Chloride [oxyBUTYnin 10 mg PO HS 06/24/23 03/26/24 chloride ER] Semaglutide [Ozempic] 1 mg SQ MO 06/24/23 03/26/24 metFORMIN HCL ER [Glucophage XR] 1,000 mg PO BID 06/24/23 03/26/24 Fluticasone Propion/Salmeterol 1 puff INHALATION RT-BID 11/08/23 03/26/24 [Wixela 250-50 Inhub] Losartan [Cozaar] 50 mg PO BID 11/08/23 03/26/24 Pantoprazole [Protonix] 40 mg PO AC-BRKFST 11/08/23 03/26/24 Cholecalciferol (Vitamin D3) 50 mcg PO DAILY 03/26/24 03/26/24 [Vitamin D3 (50 Mcg = 2000 Iu)] Empagliflozin [Jardiance] 10 mg PO DAILY 03/26/24 03/26/24 Loratadine [Claritin] 10 mg PO DAILY 03/26/24 03/26/24 Allergies Allergy/AdvReac Type Severity Reaction Status Date / Time ammonia Allergy Dyspnea & Verified 10/23/24 08:32 Passed Out bee venom protein (honey bee) Allergy Anaphylaxis Verified 10/23/24 08:32 exenatide [From Byetta] Allergy Unknown Verified 10/23/24 08:32 feathers Allergy Anaphylaxis Verified 10/23/24 08:32 meperidine [From Demerol] Allergy Hives, Verified 10/23/24 08:32 Rash, Hypotension meperidine HCl [From Demerol] Allergy Anaphylaxis Verified 10/23/24 08:32 mint Allergy Anaphylaxis Verified 10/23/24 08:32 mold Allergy Anaphylaxis Verified 10/23/24 08:32 nifedipine [From Procardia] Allergy Unknown Verified 10/23/24 08:32 venom-honey bee Allergy Anaphylaxis Verified 10/23/24 08:32 [bee venom (honey bee)] wool Allergy Anaphylaxis Verified 10/23/24 08:32 amlodipine AdvReac Headache Verified 10/23/24 08:32 atenolol AdvReac Dyspnea, Verified 10/23/24 08:32 Migraine barium sulfate AdvReac rectal Verified 10/23/24 08:32 bleeding cephalexin [From Keflex] AdvReac Dyspnea Verified 10/23/24 08:32 diphenhydramine AdvReac Hypertensio Verified 10/23/24 08:32 n diphtheria,pertussis AdvReac Dyspnea & Verified 10/23/24 08:32 (acellular),te Heart [From Boostrix Tdap] Palpitations & Nausea dulaglutide [From Trulicity] AdvReac Dyspnea Verified 10/23/24 08:32 fexofenadine [From Elena] AdvReac Migraine Verified 10/23/24 08:32 fexofenadine HCl AdvReac Muscle Pain Verified 10/23/24 08:32 [From Elena] fluoxetine AdvReac "Feeling Verified 10/23/24 08:32 Irritable" fluvastatin AdvReac Muscle Pain Verified 10/23/24 08:32 guaifenesin AdvReac Dyspnea Verified 10/23/24 08:32 hydrochlorothiazide AdvReac Tachycardia Verified 10/23/24 08:32 influenza virus vaccine, AdvReac Dyspnea & Verified 10/23/24 08:32 specific Heart Palpitations & Nausea isosorbide [From Imdur] AdvReac Migraine Verified 10/23/24 08:32 lisinopril AdvReac Fatigue, Verified 10/23/24 08:32 Cough modafinil AdvReac Headache Verified 10/23/24 08:32 nitroglycerin AdvReac Dizziness Verified 10/23/24 08:32 ondansetron [From Zofran] AdvReac Nausea Verified 10/23/24 08:32 paroxetine [From Paxil] AdvReac "Depression Verified 10/23/24 08:32 " paroxetine HCl [From Paxil] AdvReac "Depressed" Verified 10/23/24 08:32 pneumococcal vaccine AdvReac Dyspnea & Verified 10/23/24 08:32 Heart Palpitations & Nausea rimegepant [From Nurtec ODT] AdvReac Nausea & Verified 10/23/24 08:32 Vomiting sertraline HCl [From Zoloft] AdvReac Fatigue Verified 10/23/24 08:32 simvastatin [From Zocor] AdvReac Muscle/Joint Verified 10/23/24 08:32 Pain spironolactone AdvReac Nausea & Verified 10/23/24 08:32 Vomiting Ajrscxf-DKQ-QfI Reductase AdvReac Muscle/Joint Verified 10/23/24 08:32 Inhibitor Pain [Zeatazv-Uar-Ioq Reductase Inhibitor] sumatriptan AdvReac Palpitation Verified 10/23/24 08:32 s venlafaxine [From Effexor] AdvReac Tachycardia Verified 10/23/24 08:32 zolpidem [From Ambien] AdvReac Dyspnea, Verified 10/23/24 08:32 Migraine zolpidem tartrate AdvReac Dyspnea, Verified 10/23/24 08:32 [From Ambien] Migraine zoster vaccine live AdvReac Dyspnea & Verified 10/23/24 08:32 Heart Palpitations & Nausea hay AdvReac Dyspnea Uncoded 10/23/24 08:32 lysol AdvReac Dyspnea Uncoded 10/23/24 08:32 Review of Systems ROS Statement: Those systems with pertinent positive or pertinent negative responses have been documented in the HPI. ROS Other: All systems not noted in ROS Statement are negative. Past Medical History Past Medical History: Asthma, Coronary Artery Disease (CAD), Cancer, Heart Failu re, COPD, CVA/TIA, Diabetes Mellitus, GERD/Reflux, Hearing Disorder / Deafness, Hyperlipidemia, Hypertension, Myocardial Infarction (RI), Osteoarthritis (OA), Pneumonia, Seizure Disorder, Sleep Apnea/CPAP/BIPAP, Thyroid Disorder Additional Past Medical History / Comment(s): additional hx: right bundle branch block,barretts esophagus, migraines, deanna hearing aids, 7 lung nodules, fatty liver, pulmonary hypertension, heart murmur,obesity, IBS, RLS, arthritis, ADHD, DJD, anemia, lactose intolerance; last seizure 24 years ago, kidney stones x2, covid 07/08; CHF; TIAx3 in 2022; two heart attacks 2011 and 2018, bowel Ca 2019 Last Myocardial Infarction Date:: 08/01/2018 History of Any Multi-Drug Resistant Organisms: MRSA Date of last positivie culture/infection: November 2020 MDRO Source:: Abdomen Past Surgical History: Bowel Resection, Cholecystectomy, Heart Catheterization With Stent, Hysterectomy Additional Past Surgical History / Comment(s): breast biopsy,esophageal surgery - 2002, Bowel resection with Colostomy Apr 2020, colostomy reversed october 2020, cardiac stentx2 04/01/23 Past Anesthesia/Blood Transfusion Reactions: Postoperative Nausea & Vomiting (PONV) Additional Past Anesthesia/Blood Transfusion Reaction / Comment(s): gets nauseous at times; patient has had blood transfusions without no reactions Date of Last Stent Placement:: 04/01/2023 Past Psychological History: ADD/ADHD, Anxiety, Depression Smoking Status: Never smoker Past Alcohol Use History: None Reported Past Drug Use History: None Reported - Past Family History Mother History Unknown: Yes Family Medical History: Congestive Heart Failure (CHF), Myocardial Infarction (RI) Additional Family Medical History / Comment(s): 77 Father History Unknown: Yes Family Medical History: COPD, Myocardial Infarction (RI) Additional Family Medical History / Comment(s): at 56 Sister(s) History Unknown: Yes Family Medical History: Myocardial Infarction (RI) Additional Family Medical History / Comment(s): at 56 Brother(s) Family Medical History: Cancer Additional Family Medical History / Comment(s): colon cancer General Exam Limitations: no limitations General appearance: alert, in no apparent distress Neck exam: Present: normal inspection. Absent: tenderness, meningismus, lymphadenopathy Respiratory exam: Present: normal lung sounds bilaterally. Absent: respiratory distress, wheezes, rales, rhonchi, stridor Cardiovascular Exam: Present: regular rate, normal rhythm, normal heart sounds. Absent: systolic murmur, diastolic murmur, rubs, gallop, clicks GI/Abdominal exam: Present: soft, distended, normal bowel sounds. Absent: tenderness, guarding, rebound, rigid Extremities exam: Present: normal inspection, full ROM, normal capillary refill. Absent: tenderness, pedal edema, joint swelling, calf tenderness Back exam: Present: normal inspection. Absent: CVA tenderness (R), CVA tenderness (L) Course Vital Signs 10/23/24 10/23/24 07:39 10:10 Temperature 97.8 F 97.8 F Pulse Rate 75 66 Respiratory 20 19 Rate Blood Pressure 181/91 164/77 O2 Sat by Pulse 96 96 Oximetry Medical Decision Making - Medical Decision Making Was pt. sent in by a medical professional or institution (, PA, SUPERVISOR TYPESETTING, urgent care, hospital, or usp...) When possible be specific @ -No Did you speak to anyone other than the patient for history (EMS, parent, family, police, friend...)? What history was obtained from this source @ -No Did you review nursing and triage notes (agree or disagree)? Why? @ -I reviewed and agree with nursing and triage notes Were old charts reviewed (outside hosp., previous admission, EMS record, old EKG, old radiological studies, urgent care reports/EKG's, usp records)? Report findings @ -No old charts were reviewed Differential Diagnosis (chest pain, altered mental status, abdominal pain women, abdominal pain men, vaginal bleeding, weakness, fever, dyspnea, syncope, headache, dizziness, GI bleed, back pain, seizure, CVA, palpatations, mental he alth, musculoskeletal)? @ -Differential Abdominal Pain Women: Appendicitis, Cholecystitis, diverticulosis, ischemic bowel, pancreatitis, hepatitis, UTI, gastroenteritis, AAA, incarcerated hernia, bowel obstruction, constipation, inflammatory bowel, hepatitis, peptic ulcer disease, splenic infarction, perforated viscus, vulvitis, ovarian torsion, PID, kidney stone, placenta abruption, this is not meant to be an all-inclusive list EKG interpreted by me (3pts min.). @ -None X-rays interpreted by me (1pt min.). @ -None done CT interpreted by me (1pt min.). @ -None done U/S interpreted by me (1pt. min.). @ -None done What testing was considered but not performed or refused? (CT, X-rays, U/S, la bs)? Why? @ -None What meds were considered but not given or refused? Why? @ -None Did you discuss the management of the patient with other professionals (professionals i.e. , PA, SUPERVISOR TYPESETTING, lab, RT, psych nurse, social work msw, check writing machine operator, teacher, chief operating officer, case management manager)? Give summary @ -No Was smoking cessation discussed for >3mins.? @ -No Was critical care preformed (if so, how long)? @ -No Were there social determinants of health that impacted care today? How? (Homelessness, low income, unemployed, alcoholism, drug addiction, transportation, low edu. Level, literacy, decrease access to med. care, care home, rehab)? @ -No Was there de-escalation of care discussed even if they declined (Discuss DNR or withdrawal of care, Hospice)? DNR status @ -No What co-morbidities impacted this encounter? (DM, HTN, Smoking, COPD, CAD, Cancer, CVA, ARF, Chemo, Hep., AIDS, mental health diagnosis, sleep apnea, morbid obesity)? @ -None Was patient admitted / discharged? Hospital course, mention meds given and route, prescriptions, significant lab abnormalities, going to OR and other pertinent info. @ -Discharge. 63-year-old female presenting to emergency department via EMS for concerns of diarrhea over the past 3 months. Overall patient is well-appearing in no signs distress. Patient noted to have abdominal distention however no signs abdominal tenderness with equal bowel sounds heard through all quadrants. laboratory studies are remarkable for a hyperchloremic metabolic acidosis with an elevated anion gap of 16. Patient's bicarb is 13, chloride 115, anion gap of 16 lab findings likely secondary to chronic diarrhea. Patient C. difficile testing is negative. Recommend the patient continue to take [id number]-kftrgsl Imodium as needed for diarrhea and to follow-up as scheduled with GI specialist on Wednesday for further evaluation. Case discussed with my attending Dr. Greer Undiagnosed new problem with uncertain prognosis? @ -No Drug Therapy requiring intensive monitoring for toxicity (Heparin, Nitro, Insulin, Cardizem)? @ -No Were any procedures done? @ -No Diagnosis/symptom? @ -Diarrhea, hyperchloremic metabolic acidosis Acute, or Chronic, or Acute on Chronic? @ -Acute Uncomplicated (without systemic symptoms) or Complicated (systemic symptoms)? @ -Uncomplicated Side effects of treatment? @ -No Exacerbation, Progression, or Severe Exacerbation? @ -No Poses a threat to life or bodily function? How? (Chest pain, USA, RI, pneumonia, PE, COPD, DKA, ARF, appy, cholecystitis, CVA, Diverticulitis, Homicidal, Suicidal, threat to staff... and all critical care pts) @ -No - Lab Data Result diagrams: 10/23/24 08:26 10/23/24 08:26 Lab Results 10/23/24 10/23/24 10/23/24 Range/Units 08:26 08:26 10:06 WBC 8.91 (4.50-10.00) 10*3/uL RBC 5.44 H (4.10-5.20) 10*6/uL Hgb 13.8 (12.0-15.0) g/dL Hct 42.5 (37.2-46.3) % MCV 78.1 L (80.0-97.0) fL MCH 25.4 L (27.0-32.0) pg MCHC 32.5 (32.0-37.0) g/dL Plt Count 206 (140-440) 10*3/uL MPV 9.7 (9.5-12.2) fL Immature Gran % (Auto) 0.3 % Neutrophils % 70.9 % Lymphocytes % 21.1 % Monocytes % 4.9 % Eosinophils % 2.1 % Basophils % 0.7 % Immature Gran # 0.03 (0.00-0.04) 10*3/uL Neutrophils # 6.31 (1.80-7.70) 10*3/uL Lymphocytes # 1.88 (0.90-5.00) 10*3/uL Monocytes # 0.44 (0.20-1.00) 10*3/uL Eosinophils # 0.19 (0.04-0.35) 10*3/uL Basophils # 0.06 (0.00-0.10) 10*3/uL Manual Slide Review Performed Immature Plt Fraction 2.4 (1.1-6.1) % Sodium 144 (137-145) mmol/L Potassium 4.1 (3.5-5.1) mmol/L Chloride 115 H (98-107) mmol/L Carbon Dioxide 13 L (22-30) mmol/L Anion Gap 16 mmol/L BUN 16 (7-17) mg/dL Creatinine 0.76 (0.52-1.04) mg/dL Est GFR (CKD-EPI)AfAm >90 (>60 ml/min/1.73 sqM) Est GFR (CKD-EPI)NonAf 83 (>60 ml/min/1.73 sqM) Glucose 96 (74-99) mg/dL Calcium 9.3 (8.4-10.2) mg/dL Magnesium 1.6 (1.6-2.3) mg/dL Total Bilirubin 0.4 (0.2-1.3) mg/dL AST 50 H (14-36) U/L ALT 59 H (4-34) U/L Alkaline Phosphatase 151 H (38-126) U/L Total Protein 7.0 (6.3-8.2) g/dL Albumin 4.3 (3.5-5.0) g/dL Lipase 109 (23-300) U/L C. difficile (EIA) Intrp Negative (Negative) Disposition Clinical Impression: Diarrhea, Hyperchloremic metabolic acidosis Disposition: HOME SELF-CARE Condition: Stable Instructions (If sedation given, give patient instructions): Acute Diarrhea (ED) Additional Instructions: Please return to the Emergency Department if symptoms worsen or any other concerns. Follow-up as scheduled on Wednesday with GI specialist for further evaluation of diarrhea. Continue to take over the counter immodium as needed for diarrhea relief. Is patient prescribed a controlled substance at d/c from ED?: No Referrals: León Martin MD [Primary Care Provider] - 1-2 days Time of Disposition: 09:31
[2024-10-23 08:32] LABS: Basophils # (A) 0.06 10*3/uL (0.00-0.10); Basophils % (A) 0.7 %; Eosinophils # (A) 0.19 10*3/uL (0.04-0.35); Eosinophils % (A) 2.1 %; HCT 42.5 % (37.2-46.3); HGB 13.8 g/dL (12.0-15.0); Immature Platelet Fraction 2.4 % (1.1-6.1); Lymphocytes # (A) 1.88 10*3/uL (0.90-5.00); Lymphocytes % (A) 21.1 %; MCH 25.4 pg (27.0-32.0); MCHC 32.5 g/dL (32.0-37.0); MCV 78.1 fL (80.0-97.0); Monocytes # (A) 0.44 10*3/uL (0.20-1.00); Monocytes % (A) 4.9 %; Neutrophils # (A) 6.31 10*3/uL (1.80-7.70); Neutrophils % (A) 70.9 %; RBC 5.44 10*6/uL (4.10-5.20); RDW 16.8 % (11.5-14.5); WBC 8.91 10*3/uL (4.50-10.00)
[2024-10-23 09:04] LABS: ALT 59 U/L (4-34); AST 50 U/L (14-36); African American GFR (CKD) >90 (>60 ml/min/1.73 sqM); Albumin 4.3 g/dL (3.5-5.0); Alkaline Phosphatase 151 U/L (38-126); Anion Gap 16 mmol/L; Blood Urea Nitrogen 16 mg/dL (7-17); Calcium 9.3 mg/dL (8.4-10.2); Carbon Dioxide 13 mmol/L (22-30); Chloride 115 mmol/L (98-107); Glucose 96 mg/dL (74-99); Lipase 109 U/L (23-300); Magnesium 1.6 mg/dL (1.6-2.3); Non-African American GFR(CKD) 83 (>60 ml/min/1.73 sqM); Potassium 4.1 mmol/L (3.5-5.1); Sodium 144 mmol/L (137-145); Total Protein 7.0 g/dL (6.3-8.2)
[2024-10-23 09:08] LABS: Platelet Count 206 10*3/uL (140-440)
[2024-10-23 10:45] VITALS: BP 164/77; PULSE 66; RESP 19
== END 2024-10-23 10:15 | disposition home or self-care (01) ==
LOC: EC 07:30
DX: E87.8 Other disorders of electrolyte and fluid balance, not elsewhere classified (principal); E87.29 Other acidosis; Z86.73 Personal history of transient ischemic attack (TIA), and cerebral infarction without residual deficits; Z88.1 Allergy status to other antibiotic agents; Z88.5 Allergy status to narcotic agent; Z88.7 Allergy status to serum and vaccine; Z88.8 Allergy status to other drugs, medicaments and biological substances; Z91.048 Other nonmedicinal substance allergy status; Z91.041 Radiographic dye allergy status; Z91.030 Bee allergy status; Z91.018 Allergy to other foods
CPT/HCPCS: 36415; 80053; 83690; 83735; 85025; 87045; 87046; 87324; 99284

== ENCOUNTER → 2024-11-16 | Outpatient (CLI) | payer OTHER ==
[2024-11-16 15:18] LABS: Basophils # (A) 0.07 X 10*3/uL (0.00-0.10); Basophils % (A) 0.9 %; Eosinophils # (A) 0.25 X 10*3/uL (0.04-0.35); Eosinophils % (A) 3.1 %; HCT 43.9 % (37.2-46.3); HGB 13.5 g/dL (12.0-15.0); Immature Grans, Automated 0.40 %; Lymphocytes # (A) 2.20 X 10*3/uL (0.90-5.00); Lymphocytes % (A) 27.5 %; MCH 24.4 pg (27.0-32.0); MCHC 30.8 g/dL (32.0-37.0); MCV 79.2 FL (80.0-97.0); Monocytes # (A) 0.43 X 10*3/uL (0.20-1.00); Monocytes % (A) 5.4 %; NRBC Per 100 WBC 0 X 10*3/uL (0.00-0.01); Neutrophils # (A) 5.03 X 10*3/uL (1.80-7.70); Neutrophils % (A) 62.7 %; Platelet Count 273 X 10*3/uL (140-440); RBC 5.54 X 10*6/uL (4.10-5.20); RDW 16.8 % (11.5-14.5); WBC 8.01 X 10*3/uL (4.50-10.00)
[2024-11-16 15:31] LABS: ALT 82 U/L (8-44); AST 54 U/L (13-35); Albumin 4.1 g/dL (3.8-4.9); Albumin/Globulin Ratio 1.78 Ratio (1.60-3.17); Alkaline Phosphatase 193 U/L (41-126); Anion Gap 14.00 mmol/L (4.00-12.00); BUN/Creat Ratio 26.71 Ratio (12.00-20.00); Blood Urea Nitrogen 18.7 mg/dL (9.0-27.0); Calcium 9.0 mg/dL (8.7-10.3); Carbon Dioxide 21.0 mmol/L (21.6-31.8); Chloride 105 mmol/L (96-109); Globulin 2.3 g/dL (1.6-3.3); Glucose 187 mg/dL (70-110); Potassium 4.2 mmol/L (3.5-5.5); Sodium 140 mmol/L (135-145); Total Protein 6.4 g/dL (6.2-8.2)
[2024-11-16 19:45] LABS: Gliadin AB IgA, Deaminated Negative (Negative); Gliadin AB IgA, Unit <0.5 U/mL; Gliadin AB IgG, Deaminated Negative (Negative); Gliadin AB IgG, Unit <0.4 U/mL
== END | disposition home or self-care (01) ==
LOC: LABWHC1 09:46
PROVIDERS: ATTEND Nurse Practitioner Family
DX: K52.9 Noninfective gastroenteritis and colitis, unspecified (principal)
CPT/HCPCS: 36415; 80053; 83516; 83630; 85025; 87045; 87046; 87328; 87329